=== PATIENT | male | born 1935 | race Caucasian/White ===

== ENCOUNTER → 2016-11-21 | Outpatient (CLI) | payer MEDICARE, OTHER ==
--- NOTE | 2016-11-21 13:23 | NM ---
EXAMINATION TYPE: NM bone 3 phase DATE OF EXAM: 11/21/2016 1:14 PM COMPARISON: plain film 07 November 2016 HISTORY: Pain right knee Triple phase bone scintigraphy was performed following the injection of27.2 mCi Tc 99m MDP. Immediat e images and 5.5 hours post injection images acquired. FINDINGS: Increased radiopharmaceutical uptake noted on blood flow, blood pool and delayed imaging at the right knee. Photopenic areas are present within the knees due to prostheses. IMPRESSION: Findings suggest infection
== END | disposition home or self-care (01) ==
LOC: RADNMMAIN 07:07
PROVIDERS: ATTEND Orthopaedic Surgery
DX: S83.421D Sprain of lateral collateral ligament of right knee, subsequent encounter (principal); M12.261 Villonodular synovitis (pigmented), right knee; M25.561 Pain in right knee; E11.9 Type 2 diabetes mellitus without complications; Z09 Encounter for follow-up examination after completed treatment for conditions other than malignant neoplasm; Z96.651 Presence of right artificial knee joint
CPT/HCPCS: 78315; A9503

== ENCOUNTER 2016-11-26 15:13 | Inpatient (IN) | payer MEDICARE, OTHER ==
[2016-11-26] MEDS ORDERED: HYDROcodone/APAP 7.5-325MG 1 EACH TAB PO PRN (15:27)
[2016-11-26] MEDS ORDERED: HYDROmorphone 1 MG/ML 1 ML SYRINGE IVP PRN ×2 (15:27)
[2016-11-26 16:15] LABS: Basophils # (A) 0.1 k/uL (0-0.2); Basophils % (A) 1 %; CH 31.3; CHCM 31.8; Eosinophils # (A) 0.1 k/uL (0-0.7); Eosinophils % (A) 1 %; HCT 38.9 % (39.0-53.0); HDW 2.27; HGB 12.4 gm/dL (13.0-17.5); Luc # (Auto) 0.23; Luc % (Auto) 3; Lymphocytes # (A) 1.9 k/uL (1.0-4.8); Lymphocytes % (A) 21 %; MCH 31.6 pg (25.0-35.0); MCV 98.8 fL (80.0-100.0); Mean Platelet Volume 6.5; Monocytes # (A) 0.5 k/uL (0-1.0); Monocytes % (A) 6 %; Neutrophils # (A) 6.5 k/uL (1.3-7.7); Neutrophils % (A) 70 %; RBC 3.93 m/uL (4.30-5.90); RDW 12.1 % (11.5-15.5); WBC 9.2 k/uL (3.8-10.6); WBC (Perox) 8.51
[2016-11-26] MEDS ORDERED: SODIUM CHLORIDE 0.9% 1,000 ML IV SCH (16:15)
[2016-11-26 16:22] LABS: INR 1.1 (<1.1); Partial Thromboplastin Time 26.8 sec (22.0-30.0); Prothrombin Time 10.8 sec (9.0-12.0)
[2016-11-26 16:38] LABS: ALT 24 U/L (21-72); AST 16 U/L (17-59); Alkaline Phosphatase 67 U/L (38-126); Anion Gap 15 mmol/L; Blood Urea Nitrogen 29 mg/dL (9-20); Calcium 9.4 mg/dL (8.4-10.2); Carbon Dioxide 23 mmol/L (22-30); Chloride 95 mmol/L (98-107); Glucose 183 mg/dL (74-99); Non-African American GFR(MDRD) 53 (>60 ml/min/1.73 sqM); Potassium 4.6 mmol/L (3.5-5.1); Sodium 133 mmol/L (137-145); Total Bilirubin 0.5 mg/dL (0.2-1.3); Total Protein 6.7 g/dL (6.3-8.2)
[2016-11-26] MEDS: ceFAZolin 2 GM in SODIUM CHLORIDE 0.9% 100 ML IVPB SCH (16:58)
[2016-11-26] MEDS: HYDROcodone/APAP 7.5-325MG 1 EACH TAB PO PRN (17:00)
[2016-11-26 17:13] LABS: C Reactive Protein 133.3 mg/L (<10.0)
[2016-11-26] MEDS ORDERED: LORATADINE 10 MG TAB PO PRN (17:29)
[2016-11-26 17:44] LABS: Glucose,Whole Blood 178 mg/dL (75-99)
[2016-11-26] MEDS ORDERED: HYDROCHLOROTHIAZIDE 25 MG TAB PO SCH (17:45)
[2016-11-26 20:55] LABS: Glucose,Whole Blood 252 mg/dL (75-99)
[2016-11-26] MEDS ORDERED: NON-FORMULARY DRUG (Omega-3 Fatty Acids/Fish Oil [Fish Oil 1,000 Mg Softgel] 1 CAP) PO SCH (21:00)
[2016-11-26] MEDS: TAMSULOSIN 0.4 MG CAP.ER.24H PO SCH (21:09)
[2016-11-26] MEDS: glipiZIDE 10 MG TAB PO SCH (21:09)
[2016-11-26] MEDS: metFORMIN 500 MG TAB PO SCH (21:10)
[2016-11-26] MEDS: ATORVASTATIN 20 MG TAB PO SCH (21:10)
[2016-11-26] MEDS: INSULIN LISPRO (humaLOG) 300 UNIT/3 ML VIAL SQ SCH (21:10)
[2016-11-26] MEDS: INSULIN GLARGINE 100 UNIT/ML 10 ML VIAL SQ SCH (21:10)
[2016-11-26 22:38] LABS: Hemoglobin A1C 10.7 % (4.2-6.1)
[2016-11-27] MEDS: ceFAZolin 2 GM in SODIUM CHLORIDE 0.9% 100 ML IVPB SCH ×3 (00:03→17:48)
[2016-11-27] MEDS: HYDROcodone/APAP 7.5-325MG 1 EACH TAB PO PRN ×3 (00:03→21:06)
[2016-11-27 06:31] LABS: Appearance,Urine Clear (Clear); Bilirubin,Urine Negative (Negative); Glucose,Urine (UA) Negative (Negative); Ketones,Urine Trace (Negative); Leukocyte Esterase,Urine Negative (Negative); Mucus,Urine Rare /hpf; Nitrite,Urine Negative (Negative); Particle Count 1433; Protein,Urine Negative (Negative); RBC,Urine 10 /hpf (0-5); Specific Gravity,Urine 1.021 (1.001-1.035); Squamous Epithelial Cell,Urine 1 /hpf (0-4); UA Billing (MACRO vs. MICRO) MICRO; Urobilinogen,Urine <2.0 mg/dL (<2.0); WBC,Urine 2 /hpf (0-5)
[2016-11-27 07:48] LABS: Glucose,Whole Blood 100 mg/dL (75-99)
[2016-11-27] MEDS: INSULIN LISPRO (humaLOG) 300 UNIT/3 ML VIAL SQ SCH ×4 (08:09→21:05)
[2016-11-27] MEDS: glipiZIDE 10 MG TAB PO SCH ×2 (08:09→21:06)
[2016-11-27] MEDS: LISINOPRIL 2.5 MG TAB PO SCH (08:10)
[2016-11-27] MEDS: TAMSULOSIN 0.4 MG CAP.ER.24H PO SCH ×2 (08:10→21:05)
[2016-11-27] MEDS: metFORMIN 500 MG TAB PO SCH ×2 (08:11→21:06)
--- NOTE | 2016-11-27 08:56 | P.HPOR ---
History of Present Illness H&P Date: 11/27/16 Chief Complaint: Right infected TKA The patient is a pleasant 81-year-old male who is known patient of Dr. Contreras. The patient presented our office for right knee pain at the end of October. 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 Both surgeries were completed by Dr. Marie. The patient states that he has had ongoing pain in the right knee since surgery. He underwent a cortisone injection by Dr. Contreras at the end of October which was not helpful for his pain. A few weeks later he presented back to the office unable to bear weight on the right leg. A aspiration of the knee was completed on 2016 that revealed turbid fluid and a bone scan was ordered. Bone scan revealed infection to the right knee. Cultures of the knee aspirate have been negative at this time. The patient states that he has had fever and chills for the last few weeks. The patient was admitted directly from our office yesterday for hardware removal and antibiotic spacer placement to the right knee this afternoon. Infectious disease consult has been requested. Today, the patient states that his knee is still warm and painful. He denies fever and chills today. Review of Systems Constitutional: Reports as per HPI Cardiovascular: Denies chest pain, Denies shortness of breath Respiratory: Denies cough Gastrointestinal: Denies abdominal pain, Denies nausea, Denies vomiting Musculoskeletal: right: knee pain, knee stiffness, knee swelling Past Medical History Past Medical History: Diabetes Mellitus, GERD/Reflux, Hyperlipidemia, Hypertension, Osteoarthritis (OA), Prostate Disorder, Sleep Apnea/CPAP/BIPAP Additional Past Medical History / Comment(s): diverticulosis, hemmorhoids, constopation, varicose veins, ulcers History of Any Multi-Drug Resistant Organisms: None Reported Additional Past Surgical History / Comment(s): rt knee arthroscopy, tressa total knee repalcments, egd/colonoscopy, tressa cataracts-lens implants, rt ing hernia, umb hernia,ventral hernia, exp lap -repair of perforated ulcer Past Anesthesia/Blood Transfusion Reactions: No Reported Reaction Past Psychological History: Depression Additional Psychological History / Comment(s): pt lives with his of 63 years( rikki)and 1 son in a 2 story home. they stay on first level. they have 4 porch steps. 2 house cats. medical equipment -cpap, 4 wheeled walker. no out side services. Smoking Status: Never smoker Past Alcohol Use History: Rare Past Drug Use History: None Reported - Past Family History Mother Family Medical History: Diabetes Mellitus Additional Family Medical History / Comment(s): cardiac problems Father Family Medical History: Coronary Artery Disease (CAD) Additional Family Medical History / Comment(s): pacemaker implanted at age 93 Brother(s) History Unknown: Yes Additional Family Medical History / Comment(s): Patient was 1 brother that at age 77 with history of Alzheimer's disease and Parkinson's. Sister(s) Additional Family Medical History / Comment(s): Patient had 5 sisters. One sister from breast cancer. Second sister from an unknown cancer. Other 3 sisters are alive and doing well. Son(s) Additional Family Medical History / Comment(s): Patient has 2 sons and 5 daughters. One daughter from breast cancer at age 27. Other children have no major medical problems. Medications and Allergies Home Medications Medication Instructions Recorded Confirmed Type Acetaminophen-Codeine 300-30mg 1 tab PO Q4H PRN 11/26/16 11/26/16 History [Tylenol #3] Aspirin 325 mg PO DAILY 11/26/16 11/26/16 History HYDROcodone/APAP 7.5-325MG [[place] 1 tab PO Q6HR PRN 11/26/16 11/26/16 History 7.5-325] Hydrochlorothiazide [Hydrodiuril] 25 mg PO BID 11/26/16 11/26/16 History Insulin Glargine,Hum.rec.anlog 25 unit SQ 11/26/16 11/26/16 History [Basaglar Kwikpen U-100] Lisinopril [Zestril] 2.5 mg PO DAILY 11/26/16 11/26/16 History Loratadine [Claritin] 10 mg PO DAILY PRN 11/26/16 11/26/16 History [place]-3 Fatty Acids/Fish Oil [Fish 1 cap PO BID 11/26/16 11/26/16 History Oil 1,000 mg Softgel] Simvastatin [Zocor] 40 mg PO HS 11/26/16 11/26/16 History Tamsulosin [Flomax] 0.4 mg PO BID 11/26/16 11/26/16 History glyBURIDE/METFORMIN HCL 2 tab PO BID 11/26/16 11/26/16 History [Glucovance 5-500 mg Tablet] Allergies Allergy/AdvReac Type Severity Reaction Status Date / Time No Known Allergies Allergy Unverified 11/26/16 16:03 Physical Examination The patient is in no acute distress. He is alert and oriented 3. Exam of the right knee reveals moderate effusion. Patellar pain. Mild warmth. No gross instability. Range of motion of the right knee reveals full extension and flexion to 110. Lateral joint line pain is present. Negative Gissel's. Full and painless right hip motion. Calf is supple and nontender. Circulatory and neurovascular status is intact. Results - Labs Labs: Abnormal Lab Results - Last 24 Hours (Table) 11/26/16 11/26/16 11/26/16 Range/Units 15:50 15:59 17:39 RBC 3.93 L (4.30-5.90) m/uL Hgb 12.4 L (13.0-17.5) gm/dL Hct 38.9 L (39.0-53.0) % ESR (0-15) mm/hr Sodium 133 L (137-145) mmol/L Chloride 95 L (98-107) mmol/L BUN 29 H (9-20) mg/dL Creatinine 1.30 H (0.66-1.25) mg/dL Glucose 183 H (74-99) mg/dL POC Glucose (mg/dL) 178 H (75-99) mg/dL Hemoglobin A1c (4.2-6.1) % AST 16 L (17-59) U/L C-Reactive Protein 133.3 H (<10.0) mg/L Albumin 3.4 L (3.5-5.0) g/dL Urine Ketones (Negative) Urine Blood (Negative) Urine RBC (0-5) /hpf Urine Mucus (None) /hpf 11/26/16 11/26/16 11/26/16 Range/Units 18:46 18:46 20:54 RBC (4.30-5.90) m/uL Hgb (13.0-17.5) gm/dL Hct (39.0-53.0) % ESR 106 H (0-15) mm/hr Sodium (137-145) mmol/L Chloride (98-107) mmol/L BUN (9-20) mg/dL Creatinine (0.66-1.25) mg/dL Glucose (74-99) mg/dL POC Glucose (mg/dL) 252 H (75-99) mg/dL Hemoglobin A1c 10.7 H (4.2-6.1) % AST (17-59) U/L C-Reactive Protein (<10.0) mg/L Albumin (3.5-5.0) g/dL Urine Ketones (Negative) Urine Blood (Negative) Urine RBC (0-5) /hpf Urine Mucus (None) /hpf 11/27/16 11/27/16 Range/Units 06:13 07:35 RBC (4.30-5.90) m/uL Hgb (13.0-17.5) gm/dL Hct (39.0-53.0) % ESR (0-15) mm/hr Sodium (137-145) mmol/L Chloride (98-107) mmol/L BUN (9-20) mg/dL Creatinine (0.66-1.25) mg/dL Glucose (74-99) mg/dL POC Glucose (mg/dL) 100 H (75-99) mg/dL Hemoglobin A1c (4.2-6.1) % AST (17-59) U/L C-Reactive Protein (<10.0) mg/L Albumin (3.5-5.0) g/dL Urine Ketones Trace H (Negative) Urine Blood Trace H (Negative) Urine RBC 10 H (0-5) /hpf Urine Mucus Rare H (None) /hpf H & H 11/26/16 Range/Units 15:59 Hgb 12.4 L (13.0-17.5) gm/dL Hct 38.9 L (39.0-53.0) % Coagulation 11/26/16 Range/Units 15:50 INR 1.1 (<1.1) Result Diagrams: 11/27/16 08:24 11/27/16 08:24 Assessment and Plan (1) Status post right knee replacement Status: Acute (2) Infection of prosthetic right knee joint Status: Acute Plan: The clinical and diagnostic findings were discussed with the patient and the patient's . The patient will undergo a removal of hardware with spacer placement the right knee today by Dr. Contreras. Patient will continue to be nothing by mouth. We would appreciate antibiotics recommendations from infectious disease. The patient may require PICC line placement and IV outpatient antibiotic therapy. We will continue to follow patient closely and make further recommendations as needed.
--- NOTE | 2016-11-27 09:09 | P.CONS ---
History of Present Illness - Reason for Consult Consult date: 11/27/16 Infected right total knee arthroplasty - History of Present Illness This is an 81-year-old male. He has a significant history of a right total knee arthroplasty done in 2008 followed by a left done in 2009. Regarding his right knee, patient states it is always been painful and he's had decreased range of motion and requires continued use of walker. He states it is never been right from the beginning. He states he has been feeling warm his has applied ice packs to his knee which has helped. He apparently has had fever and chills at home. He has been following with orthopedics and underwent an aspiration done on November 19 that showed normal skin renetta. Fluid was cloudy, RBCs 800, nucleated cells 35,200, Chiara nuclear WBCs 99, mononuclear 1. No crystals were seen. He underwent a bone scan on November 21 that showed infection in the right knee. Patient is now admitted to the surgical unit and planned for removal of right knee hardware and antibiotic spacer placement today. Since arrival, patient has been afebrile, white count is 9.2. BUN 29 creatinine 1.3. Urinalysis was clear with nitrate and leukoesterase negative. CRP was 133. Albumin 3.4. Patient does state that he has had decreased oral intake as he is trying to lose weight over the past 3 weeks. He noted that his blood sugar last week was in the 300s and normally runs 150. Hemoglobin A1c is 10.7. He has significant pain to the right knee with decreased range of motion. Review of Systems All systems: negative Constitutional: Reports chills, Reports fatigue, Reports fever Eyes: denies blurred vision, denies pain Ears, nose, mouth and throat: Denies headache, Denies sore throat Cardiovascular: Denies chest pain, Denies shortness of breath Respiratory: Denies cough Gastrointestinal: Denies abdominal pain, Denies diarrhea, Denies nausea, Denies vomiting Genitourinary: Denies dysuria, Denies urinary frequency Musculoskeletal: Denies myalgias Musculoskeletal: right: knee pain, knee stiffness, knee swelling Integumentary: Denies pruritus, Denies rash Neurological: Denies numbness, Denies weakness Psychiatric: Denies anxiety, Denies depression Endocrine: Denies fatigue, Denies weight change Past Medical History Past Medical History: Diabetes Mellitus, GERD/Reflux, Hyperlipidemia, Hypertension, Osteoarthritis (OA), Prostate Disorder, Sleep Apnea/CPAP/BIPAP Additional Past Medical History / Comment(s): diverticulosis, hemmorhoids, constopation, varicose veins, ulcers History of Any Multi-Drug Resistant Organisms: None Reported Additional Past Surgical History / Comment(s): rt knee arthroscopy, tressa total knee replacments, egd/colonoscopy, tressa cataracts-lens implants, rt ing hernia, umb hernia,ventral hernia, exp lap -repair of perforated ulcer Past Anesthesia/Blood Transfusion Reactions: No Reported Reaction Past Psychological History: Depression Additional Psychological History / Comment(s): pt lives with his of 63 years( rikki)and 1 son in a 2 story home. they stay on first level. they have 4 porch steps. 2 house cats. medical equipment -cpap, 4 wheeled walker. no out side services. Smoking Status: Never smoker Past Alcohol Use History: Rare Additional Past Alcohol Use History / Comment(s): Patient is a lifelong nonsmoker. He denies any medical marijuana, marijuana, street drug or alcohol use. He worked in the past [employer] and at [employer]. He served in the [employer] starting during the [employer] but was stationed in the [place]. There is one cat in the home. Past Drug Use History: None Reported - Past Family History Mother Family Medical History: Diabetes Mellitus Additional Family Medical History / Comment(s): Mother at age 83 from complications from diabetes. Father Family Medical History: Coronary Artery Disease (CAD) Additional Family Medical History / Comment(s): Father at age 93 and only history was pacemaker implantation at age 93. Brother(s) History Unknown: Yes Additional Family Medical History / Comment(s): Patient was 1 brother that at age 77 with history of Alzheimer's disease and Parkinson's. Sister(s) Additional Family Medical History / Comment(s): Patient had 5 sisters. One sister from breast cancer. Second sister from an unknown cancer. Other 3 sisters are alive and doing well. Son(s) Additional Family Medical History / Comment(s): Patient has 2 sons and 5 daughters. One daughter from breast cancer at age 27. Other children have no major medical problems. Medications and Allergies Home Medications Medication Instructions Recorded Confirmed Type Acetaminophen-Codeine 300-30mg 1 tab PO Q4H PRN 11/26/16 11/26/16 History [Tylenol #3] Aspirin 325 mg PO DAILY 11/26/16 11/26/16 History HYDROcodone/APAP 7.5-325MG [[place] 1 tab PO Q6HR PRN 11/26/16 11/26/16 History 7.5-325] Hydrochlorothiazide [Hydrodiuril] 25 mg PO BID 11/26/16 11/26/16 History Insulin Glargine,Hum.rec.anlog 25 unit SQ HS 11/26/16 11/26/16 History [Basaglar Kwikpen U-100] Lisinopril [Zestril] 2.5 mg PO DAILY 11/26/16 11/26/16 History Loratadine [Claritin] 10 mg PO DAILY PRN 11/26/16 11/26/16 History [place]-3 Fatty Acids/Fish Oil [Fish 1 cap PO BID 11/26/16 11/26/16 History Oil 1,000 mg Softgel] Simvastatin [Zocor] 40 mg PO HS 11/26/16 11/26/16 History Tamsulosin [Flomax] 0.4 mg PO BID 11/26/16 11/26/16 History glyBURIDE/METFORMIN HCL 2 tab PO BID 11/26/16 11/26/16 History [Glucovance 5-500 mg Tablet] Allergies Allergy/AdvReac Type Severity Reaction Status Date / Time No Known Allergies Allergy Unverified 11/27/16 13:25 Physical Exam Vitals: Vital Signs Temp Pulse Resp BP Pulse Ox 11/27/16 07:00 97.4 F L 83 16 101/59 93 L 11/26/16 23:00 98.1 F 62 18 108/59 94 L 11/26/16 16:28 97.7 F 91 18 125/61 96 Intake and Output 11/26/16 11/27/16 11/27/16 22:59 06:59 14:59 Intake Total 240 Output Total 100 Balance 140 Intake: Oral 240 Output: Urine 100 Other: Voiding Method Urinal Urinal # Voids 3 1 Weight 123 kg Gen: This is an 81-year-old male. He is sitting up in a chair at the bedside and appears to be in no acute distress. HEENT: Head is atraumatic, normocephalic. Pupils equal, round. Sclerae is anicteric. NECK: Supple. No JVD. No lymphadenopathy. No thyromegaly. LUNGS: Diminished bilaterally. Clear to auscultation. No wheezes or rhonchi. No intercostal retractions. HEART: Regular rate and rhythm. Systolic murmur. ABDOMEN: Soft. Bowel sounds are present. No masses. No tenderness. EXTREMITIES: Trace pedal edema on the right. No calf tenderness. Significant tenderness to the right knee, decreased range of motion. Dorsalis pedis +2 bilaterally NEUROLOGICAL: Patient is awake, alert and oriented x3. Cranial nerves 2 through 12 are grossly intact. Results Results: Laboratory Results WBC 9.2 k/uL (3.8-10.6) 11/26/16 15:59 RBC 3.93 m/uL (4.30-5.90) L 11/26/16 15:59 Hgb 12.4 gm/dL (13.0-17.5) L 11/26/16 15:59 Hct 38.9 % (39.0-53.0) L 11/26/16 15:59 MCV 98.8 fL (80.0-100.0) 11/26/16 15:59 MCH 31.6 pg (25.0-35.0) 11/26/16 15:59 MCHC 32.0 g/dL (31.0-37.0) 11/26/16 15:59 RDW 12.1 % (11.5-15.5) 11/26/16 15:59 Plt Count 367 k/uL (150-450) 11/26/16 15:59 Neutrophils % 70 % 11/26/16 15:59 Lymphocytes % 21 % 11/26/16 15:59 Monocytes % 6 % 11/26/16 15:59 Eosinophils % 1 % 11/26/16 15:59 Basophils % 1 % 11/26/16 15:59 Neutrophils # 6.5 k/uL (1.3-7.7) 11/26/16 15:59 Lymphocytes # 1.9 k/uL (1.0-4.8) 11/26/16 15:59 Monocytes # 0.5 k/uL (0-1.0) 11/26/16 15:59 Eosinophils # 0.1 k/uL (0-0.7) 11/26/16 15:59 Basophils # 0.1 k/uL (0-0.2) 11/26/16 15:59 ESR 106 mm/hr (0-15) H 11/26/16 18:46 PT 10.8 sec (9.0-12.0) 11/26/16 15:50 INR 1.1 (<1.1) 11/26/16 15:50 APTT 26.8 sec (22.0-30.0) 11/26/16 15:50 Sodium 133 mmol/L (137-145) L 11/26/16 15:50 Potassium 4.6 mmol/L (3.5-5.1) 11/26/16 15:50 Chloride 95 mmol/L (98-107) L 11/26/16 15:50 Carbon Dioxide 23 mmol/L (22-30) 11/26/16 15:50 Anion Gap 15 mmol/L 11/26/16 15:50 BUN 29 mg/dL (9-20) H 11/26/16 15:50 Creatinine 1.30 mg/dL (0.66-1.25) H 11/26/16 15:50 Est GFR (MDRD) Af Amer >60 (>60 ml/min/1.73 sqM) 11/26/16 15:50 Est GFR (MDRD) Non-Af 53 (>60 ml/min/1.73 sqM) 11/26/16 15:50 Glucose 183 mg/dL (74-99) H 11/26/16 15:50 POC Glucose (mg/dL) 100 mg/dL (75-99) H 11/27/16 07:35 POC Glu [employer] Tender ID Rachel Flores 11/27/16 07:[address] Glu mg/dL 260 mg/dL 11/26/16 18:46 Hemoglobin A1c 10.7 % (4.2-6.1) H 11/26/16 18:46 Calcium 9.4 mg/dL (8.4-10.2) 11/26/16 15:50 Total Bilirubin 0.5 mg/dL (0.2-1.3) 11/26/16 15:50 AST 16 U/L (17-59) L 11/26/16 15:50 ALT 24 U/L (21-72) 11/26/16 15:50 Alkaline Phosphatase 67 U/L (38-126) 11/26/16 15:50 C-Reactive Protein 133.3 mg/L (<10.0) H 11/26/16 15:50 Total Protein 6.7 g/dL (6.3-8.2) 11/26/16 15:50 Albumin 3.4 g/dL (3.5-5.0) L 11/26/16 15:50 Urine Color Yellow 11/27/16 06:13 Urine Appearance Clear (Clear) 11/27/16 06:13 Urine pH 5.0 (5.0-8.0) 11/27/16 06:13 Ur Specific [place] 1.021 (1.001-1.035) 11/27/16 06:13 Urine Protein Negative (Negative) 11/27/16 06:13 Urine Glucose (UA) Negative (Negative) 11/27/16 06:13 Urine Ketones Trace (Negative) H 11/27/16 06:13 Urine Blood Trace (Negative) H 11/27/16 06:13 Urine Nitrite Negative (Negative) 11/27/16 06:13 Urine Bilirubin Negative (Negative) 11/27/16 06:13 Urine Urobilinogen <2.0 mg/dL (<2.0) 11/27/16 06:13 Ur Leukocyte Esterase Negative (Negative) 11/27/16 06:13 Urine RBC 10 /hpf (0-5) H 11/27/16 06:13 Urine WBC 2 /hpf (0-5) 11/27/16 06:13 Ur Squamous Epith Cells 1 /hpf (0-4) 11/27/16 06:13 Hyaline Casts 1 /lpf (0-2) 11/27/16 06:13 Urine Mucus Rare /hpf (None) H 11/27/16 06:13 Blood Type A Positive 11/26/16 15:59 Blood Type Recheck A Pos 11/26/16 15:59 Antibody Screen NEGATIVE 11/26/16 15:59 Spec Expiration Date 11/29/2016 - 11911/26/16 15:59 CBC & Chem 7: 11/29/16 08:19 11/29/16 08:19 Labs: Abnormal Lab Results - Last 24 Hours (Table) 11/26/16 11/26/16 11/26/16 Range/Units 15:50 15:59 17:39 RBC 3.93 L (4.30-5.90) m/uL Hgb 12.4 L (13.0-17.5) gm/dL Hct 38.9 L (39.0-53.0) % ESR (0-15) mm/hr Sodium 133 L (137-145) mmol/L Chloride 95 L (98-107) mmol/L BUN 29 H (9-20) mg/dL Creatinine 1.30 H (0.66-1.25) mg/dL Glucose 183 H (74-99) mg/dL POC Glucose (mg/dL) 178 H (75-99) mg/dL Hemoglobin A1c (4.2-6.1) % AST 16 L (17-59) U/L C-Reactive Protein 133.3 H (<10.0) mg/L Albumin 3.4 L (3.5-5.0) g/dL Urine Ketones (Negative) Urine Blood (Negative) Urine RBC (0-5) /hpf Urine Mucus (None) /hpf 11/26/16 11/26/16 11/26/16 Range/Units 18:46 18:46 20:54 RBC (4.30-5.90) m/uL Hgb (13.0-17.5) gm/dL Hct (39.0-53.0) % ESR 106 H (0-15) mm/hr Sodium (137-145) mmol/L Chloride (98-107) mmol/L BUN (9-20) mg/dL Creatinine (0.66-1.25) mg/dL Glucose (74-99) mg/dL POC Glucose (mg/dL) 252 H (75-99) mg/dL Hemoglobin A1c 10.7 H (4.2-6.1) % AST (17-59) U/L C-Reactive Protein (<10.0) mg/L Albumin (3.5-5.0) g/dL Urine Ketones (Negative) Urine Blood (Negative) Urine RBC (0-5) /hpf Urine Mucus (None) /hpf 11/27/16 11/27/16 Range/Units 06:13 07:35 RBC (4.30-5.90) m/uL Hgb (13.0-17.5) gm/dL Hct (39.0-53.0) % ESR (0-15) mm/hr Sodium (137-145) mmol/L Chloride (98-107) mmol/L BUN (9-20) mg/dL Creatinine (0.66-1.25) mg/dL Glucose (74-99) mg/dL POC Glucose (mg/dL) 100 H (75-99) mg/dL Hemoglobin A1c (4.2-6.1) % AST (17-59) U/L C-Reactive Protein (<10.0) mg/L Albumin (3.5-5.0) g/dL Urine Ketones Trace H (Negative) Urine Blood Trace H (Negative) Urine RBC 10 H (0-5) /hpf Urine Mucus Rare H (None) /hpf Assessment and Plan Plan: This is an 81-year-old male who has been brought into the hospital for infected right total knee arthroplasty with scheduled removal of right knee hardware and placement of antibiotic spacer today. He is currently on. No cultures are currently available. Patient will require close blood sugar control. Continue supportive care. Further recommendations as patient progresses. The above dictated assessment and findings were discussed with Dr. Hernandez. The impression and plan of care have been directed as dictated. Augustina Washington nurse practitioner acting as scribe for Dr. Hernandez.
[2016-11-27 10:04] LABS: Basophils # (A) 0.1 k/uL (0-0.2); Basophils % (A) 1 %; CH 31.5; CHCM 32.2; Eosinophils # (A) 0.1 k/uL (0-0.7); Eosinophils % (A) 1 %; HCT 38.5 % (39.0-53.0); HDW 2.23; HGB 12.2 gm/dL (13.0-17.5); Luc # (Auto) 0.18; Luc % (Auto) 2; Lymphocytes % (A) 22 %; MCHC 31.7 g/dL (31.0-37.0); Mean Platelet Volume 7.1; Monocytes # (A) 0.6 k/uL (0-1.0); Monocytes % (A) 7 %; Neutrophils % (A) 68 %; RBC 3.93 m/uL (4.30-5.90); WBC 8.8 k/uL (3.8-10.6); WBC (Perox) 8.69
[2016-11-27 10:19] LABS: Calcium 9.5 mg/dL (8.4-10.2); Magnesium 1.8 mg/dL (1.6-2.3); Potassium 5.6 mmol/L (3.5-5.1); Total Bilirubin 0.8 mg/dL (0.2-1.3); Total Protein 7.2 g/dL (6.3-8.2)
[2016-11-27 11:13] VITALS: BMI 36.2
[2016-11-27 11:37] LABS: Glucose,Whole Blood 92 mg/dL (75-99)
[2016-11-27] MEDS: SODIUM CHLORIDE 0.9% 1,000 ML IV SCH (12:55)
[2016-11-27] MEDS ORDERED: LACTATED RINGERS 1,000 ML IV ONE (13:24)
[2016-11-27 13:53] LABS: Glucose,Whole Blood 60 mg/dL (75-99)
[2016-11-27 13:53] LABS: Glucose,Whole Blood 102 mg/dL (75-99)
[2016-11-27] MEDS ORDERED: MIDAZOLAM 2 MG/2 ML VIAL ONE (14:05)
[2016-11-27] MEDS ORDERED: PROPOFOL 10 MG/ML 20 ML VIAL IV ONE (14:05)
--- NOTE | 2016-11-27 14:29 | P.CONS ---
History of Present Illness - Reason for Consult Consult date: 11/26/16 Medical management Requesting physician: Otilio Contreras - Chief Complaint Infected Right Total Knee Arthroplasty - History of Present Illness This is an 81-year-old male one of Dr. Larkin with a previous medical history significant for hypertension and hypertensive cardio vascular disease, hyperlipidemia, GERD, diabetes mellitus type 2, obesity with obstructive sleep apnea and obesity hypoventilation syndrome, history of osteoarthritis status post right total knee arthroplasty back in 2008 and left total knee of breast back in 2009, patient stated that he has been having issues with his right knee on and off with increased warmth and pain along with swelling, and he has been following up with orthopedic surgery for evaluation. He apparently underwent an aspiration done on November 19 that showed normal skin renetta. Fluid was cloudy, RBCs 800, nucleated cells 35,200, Chiara nuclear WBCs 99, mononuclear 1. No crystals were seen. He underwent a bone scan on November 21 that showed infection in the right knee. Patient is now admitted to the surgical unit and planned for removal of right knee hardware and antibiotic spacer placement that would be scheduled for tomorrow morning. Patient is sitting up in bed in no apparent distress he denies any chest pain, shortness breath, he has no abdominal pain, nausea, vomiting, he does complain of increased pain and swelling of the right knee and not able to ambulate. Review of Systems Constitutional: Reports chronic pain, Reports fever, Reports malaise, Reports weakness, Reports weight gain, Denies anorexia, Denies chronic headaches Eyes: denies blurred vision, denies bulging eye, denies decreased vision Ears: bilateral: decreased hearing Ears, nose, mouth and throat: Denies dysphagia, Denies neck lump, Denies sore throat Cardiovascular: Reports decreased exercise tolerance, Reports dyspnea on exertion, Reports high blood pressure, Denies chest pain, Denies rapid heart beat, Denies shortness of breath, Denies syncope Respiratory: Reports dyspnea, Reports sleep apnea, Reports snoring, Denies congestion, Denies cough, Denies cough with sputum, Denies wheezing Gastrointestinal: Denies abdominal pain, Denies bloating, Denies BRBPR, Denies change in bowel habits, Denies heartburn, Denies hematemesis, Denies hematochezia, Denies indigestion, Denies melena, Denies nausea, Denies vomiting Genitourinary: Reports nocturia, Denies dysuria Musculoskeletal: Reports gait dysfunction, Reports hot joints Musculoskeletal: right: knee pain, knee stiffness, knee swelling, absent: ankle pain, ankle stiffness, ankle swelling, elbow pain, elbow stiffness, elbow swelling, foot pain, foot stiffness, foot swelling, hand pain, hand stiffness, hand swelling, hip pain, hip stiffness, hip swelling, shoulder pain, shoulder stiffness, shoulder swelling, wrist pain, wrist stiffness, wrist swelling Integumentary: Reports rash (Seborrheic dermatitis on his face.) Neurological: Reports balance difficulties, Reports gait dysfunction, Reports weakness Psychiatric: Denies anxiety, Denies depression Endocrine: Denies fatigue, Denies weight change Past Medical History Past Medical History: Diabetes Mellitus, GERD/Reflux, Hyperlipidemia, Hypertension, Osteoarthritis (OA), Prostate Disorder, Sleep Apnea/CPAP/BIPAP Additional Past Medical History / Comment(s): diverticulosis, hemmorhoids, constopation, varicose veins, ulcers History of Any Multi-Drug Resistant Organisms: None Reported Additional Past Surgical History / Comment(s): rt knee arthroscopy, tressa total knee repalcments, egd/colonoscopy, tressa cataracts-lens implants, rt ing hernia, umb hernia,ventral hernia, exp lap -repair of perforated ulcer Past Anesthesia/Blood Transfusion Reactions: No Reported Reaction Past Psychological History: Depression Additional Psychological History / Comment(s): pt lives with his of 63 years( rikki)and 1 son in a 2 story home. they stay on first level. they have 4 porch steps. 2 house cats. medical equipment -cpap, 4 wheeled walker. no out side services. Smoking Status: Never smoker Past Alcohol Use History: Rare Past Drug Use History: None Reported - Past Family History Mother Family Medical History: Diabetes Mellitus Additional Family Medical History / Comment(s): cardiac problems Father Family Medical History: Coronary Artery Disease (CAD) Additional Family Medical History / Comment(s): pacemaker implanted at age 93 Brother(s) History Unknown: Yes Additional Family Medical History / Comment(s): Patient was 1 brother that at age 77 with history of Alzheimer's disease and Parkinson's. Sister(s) Additional Family Medical History / Comment(s): Patient had 5 sisters. One sister from breast cancer. Second sister from an unknown cancer. Other 3 sisters are alive and doing well. Son(s) Additional Family Medical History / Comment(s): Patient has 2 sons and 5 daughters. One daughter from breast cancer at age 27. Other children have no major medical problems. Medications and Allergies Home Medications Medication Instructions Recorded Confirmed Type Acetaminophen-Codeine 300-30mg 1 tab PO Q4H PRN 11/26/16 11/26/16 History [Tylenol #3] Aspirin 325 mg PO DAILY 11/26/16 11/26/16 History HYDROcodone/APAP 7.5-325MG [[place] 1 tab PO Q6HR PRN 11/26/16 11/26/16 History 7.5-325] Hydrochlorothiazide [Hydrodiuril] 25 mg PO BID 11/26/16 11/26/16 History Insulin Glargine,Hum.rec.anlog 25 unit SQ HS 11/26/16 11/26/16 History [Basaglar Kwikpen U-100] Lisinopril [Zestril] 2.5 mg PO DAILY 11/26/16 11/26/16 History Loratadine [Claritin] 10 mg PO DAILY PRN 11/26/16 11/26/16 History Hudgins-3 Fatty Acids/Fish Oil [Fish 1 cap PO BID 11/26/16 11/26/16 History Oil 1,000 mg Softgel] Simvastatin [Zocor] 40 mg PO HS 11/26/16 11/26/16 History Tamsulosin [Flomax] 0.4 mg PO BID 11/26/16 11/26/16 History glyBURIDE/METFORMIN HCL 2 tab PO BID 11/26/16 11/26/16 History [Glucovance 5-500 mg Tablet] Allergies Allergy/AdvReac Type Severity Reaction Status Date / Time No Known Allergies Allergy Unverified 11/27/16 13:25 Physical Exam Vitals: Vital Signs Temp Pulse Resp BP Pulse Ox 11/26/16 16:28 97.7 F 91 18 125/61 96 Intake and Output 11/26/16 11/26/16 11/26/16 06:59 14:59 22:59 Output Total 100 Balance -100 Output: Urine 100 Other: Voiding Method Urinal Weight 123 kg Patient Weight 11/27/16 06:59 Weight 123 kg - Constitutional General appearance: mild distress, morbidly obese - EENT Eyes: anicteric sclerae, EOMI, PERRLA, no ptosis, no scleral icterus, normal appearance ENT: hard of hearing, normal oropharynx, no thrush Ears: bilateral: normal - Neck Neck: no lymphadenopathy, normal ROM, no rigidity, no stridor, no thyromegaly Carotids: bilateral: upstroke normal Thyroid: bilateral: normal size - Respiratory Respiratory: bilateral: diminished, negative: dullness, rales, rhonchi, wheezing , prolonged expiration, prolonged inspiration - Cardiovascular Rhythm: regular Heart sounds: normal: S1, S2 Abnormal Heart Sounds: systolic murmur, no rub, no S3 Gallop, no S4 Gallop, no click - Gastrointestinal General gastrointestinal: normal bowel sounds, soft, no splenomegaly, no tenderness, no umbilical hernia, no ventral hernia - Integumentary Integumentary: normal, normal turgor - Neurologic Neurologic: CNII-XII intact - Musculoskeletal Musculoskeletal: generalized weakness, strength equal bilaterally - Psychiatric Psychiatric: A&O x's 3, appropriate affect, intact judgment & insight Results CBC & Chem 7: 11/27/16 08:24 11/27/16 08:24 Labs: Abnormal Lab Results - Last 24 Hours (Table) 11/26/16 11/26/16 11/26/16 Range/Units 15:50 15:59 17:39 RBC 3.93 L (4.30-5.90) m/uL Hgb 12.4 L (13.0-17.5) gm/dL Hct 38.9 L (39.0-53.0) % Sodium 133 L (137-145) mmol/L Chloride 95 L (98-107) mmol/L BUN 29 H (9-20) mg/dL Creatinine 1.30 H (0.66-1.25) mg/dL Glucose 183 H (74-99) mg/dL POC Glucose (mg/dL) 178 H (75-99) mg/dL AST 16 L (17-59) U/L C-Reactive Protein 133.3 H (<10.0) mg/L Albumin 3.4 L (3.5-5.0) g/dL Assessment and Plan Plan: Assessment and plan: 1. Infected right knee prosthesis . Patient is scheduled to go for removal of the hardware and antibiotic spacer, patient will be started on IV antibiotic, after obtaining the result of the culture, patient is going to moderate risk surgery, there is no Indication for the post surgical intervention at this time , patient will be followed by or service after surgery. Infectious disease consultation appreciated. 2. Hypertension and hypertensive cardiovascular disease. We will continue patient on lisinopril 2.5 mg orally once every day, discontinue patient HCTZ. 3. Acute kidney injury with mild hyperkalemia. Continue IV fluid normal saline at 100 mL an hour. Recheck CMP magnesium tomorrow morning. 4. Hyperlipidemia. Continue Lipitor 20 mg orally once every day. 5. Diabetes mellitus type 2. Gave 80% of his Lantus dose which would be 20 units at bedtime along with a sliding scale insulin. IV fluids will be changed to D5 half-normal saline in the OR as to be switched back to saline at 75 mL an hour postoperatively. Hold off metformin and glyburide before surgery as to resume after surgery. 6. Enlarged prostate. Monitor for urinary retention, patient will need to have a Wheeler catheter in place, continue Flomax 0.4 g orally twice every day. 7. GERD. Continue Protonix 40 mg orally once every day. 8. Obesity with obstructive sleep apnea. Continue CPAP. 9. DVT prophylaxis. Patient will be started on Coumadin postoperatively. 10. Thank you Dr. Contreras for allowing me to participate in the care of your patient, we will follow the patient along with you.
--- NOTE | 2016-11-27 15:36 | P.PN ---
Subjective This is an 81-year-old male one of Dr. Larkin with a previous medical history significant for hypertension and hypertensive cardio vascular disease, hyperlipidemia, GERD, diabetes mellitus type 2, obesity with obstructive sleep apnea and obesity hypoventilation syndrome, history of osteoarthritis status post right total knee arthroplasty back in 2008 and left total knee of breast back in 2009, patient stated that he has been having issues with his right knee on and off with increased warmth and pain along with swelling, and he has been following up with orthopedic surgery for evaluation. He apparently underwent an aspiration done on November 19 that showed normal skin renetta. Fluid was cloudy, RBCs 800, nucleated cells 35,200, Chiara nuclear WBCs 99, mononuclear 1. No crystals were seen. He underwent a bone scan on November 21 that showed infection in the right knee. Patient is now admitted to the surgical unit and planned for removal of right knee hardware and antibiotic spacer placement that would be scheduled for tomorrow morning. Patient is sitting up in bed in no apparent distress he denies any chest pain, shortness breath, he has no abdominal pain, nausea, vomiting, he does complain of increased pain and swelling of the right knee and not able to ambulate. 11/27: Patient denies any new complaints. He continues to have right knee pain for which surgery is scheduled for 2:00 this afternoon. Sodium is 136, potassium 5.6, BUN 32 and creatinine 1.38. IV fluids increased to 100 mL per hour. Urinalysis was done with nitrate and leukoesterase negative. Objective - Vital Signs Vital signs: Vital Signs Temp 97.4 F L 11/27/16 07:00 Pulse 83 11/27/16 07:00 Resp 16 11/27/16 07:00 BP 101/59 11/27/16 07:00 Pulse Ox 93 L 11/27/16 07:00 Intake & Output 11/26/16 11/27/16 11/27/16 18:59 06:59 18:59 Intake Total 240 Output Total 100 Balance -100 240 Weight 123 kg 117.889 kg Intake: Oral 240 Output: Urine 100 Other: Voiding Method Urinal Urinal # Voids 1 - Exam General appearance: mild distress, morbidly obese - EENT Eyes: anicteric sclerae, EOMI, PERRLA, no ptosis, no scleral icterus, normal appearance ENT: hard of hearing, normal oropharynx, no thrush Ears: bilateral: normal - Neck Neck: no lymphadenopathy, normal ROM, no rigidity, no stridor, no thyromegaly Carotids: bilateral: upstroke normal Thyroid: bilateral: normal size - Respiratory Respiratory: bilateral: diminished, negative: dullness, rales, rhonchi, wheezing , prolonged expiration, prolonged inspiration - Cardiovascular Rhythm: regular Heart sounds: normal: S1, S2 Abnormal Heart Sounds: systolic murmur, no rub, no S3 Gallop, no S4 Gallop, no click - Gastrointestinal General gastrointestinal: normal bowel sounds, soft, no splenomegaly, no tenderness, no umbilical hernia, no ventral hernia - Integumentary Integumentary: normal, normal turgor - Neurologic Neurologic: CNII-XII intact - Musculoskeletal Musculoskeletal: generalized weakness, strength equal bilaterally - Psychiatric Psychiatric: A&O x's 3, appropriate affect, intact judgment & insight - Labs CBC & Chem 7: 11/27/16 08:24 11/27/16 08:24 Labs: Abnormal Lab Results - Last 24 Hours (Table) 11/26/16 11/26/16 11/26/16 Range/Units 15:50 15:59 17:39 RBC 3.93 L (4.30-5.90) m/uL Hgb 12.4 L (13.0-17.5) gm/dL Hct 38.9 L (39.0-53.0) % ESR (0-15) mm/hr Sodium 133 L (137-145) mmol/L Potassium (3.5-5.1) mmol/L Chloride 95 L (98-107) mmol/L BUN 29 H (9-20) mg/dL Creatinine 1.30 H (0.66-1.25) mg/dL Glucose 183 H (74-99) mg/dL POC Glucose (mg/dL) 178 H (75-99) mg/dL Hemoglobin A1c (4.2-6.1) % AST 16 L (17-59) U/L ALT (21-72) U/L C-Reactive Protein 133.3 H (<10.0) mg/L Albumin 3.4 L (3.5-5.0) g/dL Urine Ketones (Negative) Urine Blood (Negative) Urine RBC (0-5) /hpf Urine Mucus (None) /hpf 11/26/16 11/26/16 11/26/16 Range/Units 18:46 18:46 20:54 RBC (4.30-5.90) m/uL Hgb (13.0-17.5) gm/dL Hct (39.0-53.0) % ESR 106 H (0-15) mm/hr Sodium (137-145) mmol/L Potassium (3.5-5.1) mmol/L Chloride (98-107) mmol/L BUN (9-20) mg/dL Creatinine (0.66-1.25) mg/dL Glucose (74-99) mg/dL POC Glucose (mg/dL) 252 H (75-99) mg/dL Hemoglobin A1c 10.7 H (4.2-6.1) % AST (17-59) U/L ALT (21-72) U/L C-Reactive Protein (<10.0) mg/L Albumin (3.5-5.0) g/dL Urine Ketones (Negative) Urine Blood (Negative) Urine RBC (0-5) /hpf Urine Mucus (None) /hpf 11/27/16 11/27/16 11/27/16 Range/Units 06:13 07:35 08:24 RBC 3.93 L (4.30-5.90) m/uL Hgb 12.2 L (13.0-17.5) gm/dL Hct 38.5 L (39.0-53.0) % ESR (0-15) mm/hr Sodium (137-145) mmol/L Potassium (3.5-5.1) mmol/L Chloride (98-107) mmol/L BUN (9-20) mg/dL Creatinine (0.66-1.25) mg/dL Glucose (74-99) mg/dL POC Glucose (mg/dL) 100 H (75-99) mg/dL Hemoglobin A1c (4.2-6.1) % AST (17-59) U/L ALT (21-72) U/L C-Reactive Protein (<10.0) mg/L Albumin (3.5-5.0) g/dL Urine Ketones Trace H (Negative) Urine Blood Trace H (Negative) Urine RBC 10 H (0-5) /hpf Urine Mucus Rare H (None) /hpf 11/27/16 Range/Units 08:24 RBC (4.30-5.90) m/uL Hgb (13.0-17.5) gm/dL Hct (39.0-53.0) % ESR (0-15) mm/hr Sodium 136 L (137-145) mmol/L Potassium 5.6 H (3.5-5.1) mmol/L Chloride (98-107) mmol/L BUN 32 H (9-20) mg/dL Creatinine 1.38 H (0.66-1.25) mg/dL Glucose 107 H (74-99) mg/dL POC Glucose (mg/dL) (75-99) mg/dL Hemoglobin A1c (4.2-6.1) % AST (17-59) U/L ALT 16 L (21-72) U/L C-Reactive Protein (<10.0) mg/L Albumin (3.5-5.0) g/dL Urine Ketones (Negative) Urine Blood (Negative) Urine RBC (0-5) /hpf Urine Mucus (None) /hpf Assessment and Plan Plan: 1. Infected right knee prosthesis . Patient is scheduled to go for removal of the hardware and antibiotic spacer, patient will be started on IV antibiotic, after obtaining the result of the culture, patient is going to moderate risk surgery, there is no Indication for the post surgical intervention at this time , patient will be followed by or service after surgery. Infectious disease consultation appreciated. 2. Hypertension and hypertensive cardiovascular disease. We will continue patient on lisinopril 2.5 mg orally once every day, discontinue patient HCTZ. 3. Acute kidney injury with mild hyperkalemia. Continue IV fluid normal saline at 100 mL an hour. Recheck CMP magnesium tomorrow morning. 4. Hyperlipidemia. Continue Lipitor 20 mg orally once every day. 5. Diabetes mellitus type 2. Gave 80% of his Lantus dose which would be 20 units at bedtime along with a sliding scale insulin. IV fluids will be changed to D5 half-normal saline in the OR as to be switched back to saline at 75 mL an hour postoperatively. Hold off metformin and glyburide before surgery as to resume after surgery. 6. Enlarged prostate. Monitor for urinary retention, patient will need to have a Wheeler catheter in place, continue Flomax 0.4 g orally twice every day. 7. GERD. Continue Protonix 40 mg orally once every day. 8. Obesity with obstructive sleep apnea. Continue CPAP. 9. DVT prophylaxis. Patient will be started on Coumadin postoperatively. Discharge plan: To be determined Impression and plan of care have been directed as dictated by the signing physician. Augustina Washington nurse practitioner acting as scribe for signing physician.
[2016-11-27] MEDS ORDERED: NA PHOS,M-B/NA PHOS,DI-BA 133 ML ENEMA RECTAL PRN (15:38)
[2016-11-27] MEDS ORDERED: hydrOXYzine PAMOATE 25 MG CAP PO PRN (15:38)
[2016-11-27] MEDS ORDERED: TEMAZEPAM 15 MG CAP PO PRN (15:38)
[2016-11-27] MEDS ORDERED: NALOXONE 0.4 MG/ML 1 ML VIAL IV PRN (15:38)
[2016-11-27] MEDS ORDERED: BISACODYL 10 MG SUPP RECTAL PRN (15:38)
[2016-11-27] MEDS ORDERED: ONDANSETRON 4 MG/2 ML VIAL IVP PRN (15:38)
[2016-11-27] MEDS ORDERED: MAGNESIUM HYDROXIDE 2,400 MG/10 ML CUP PO PRN (15:38)
[2016-11-27] MEDS ORDERED: TOBRAMYCIN SULFATE 1.2 GM VIAL MISCELLANE ONE (15:48)
[2016-11-27] MEDS ORDERED: ceFAZolin 3,000 MG in SODIUM CHLORIDE 0.9% IRRIGATIO 3,000 ML IRRIGATION ONE (15:51)
[2016-11-27] MEDS: HYDROmorphone 1 MG/ML 1 ML SYRINGE IVP ONE ×6 (16:35→17:24)
[2016-11-27 16:39] LABS: Glucose,Whole Blood 80 mg/dL (75-99)
[2016-11-27] MEDS: HYDROmorphone 1 MG/ML 1 ML SYRINGE IVP PRN (17:59)
[2016-11-27] MEDS ORDERED: WARFARIN 2.5 MG TAB PO ONE (18:00)
[2016-11-27 20:39] LABS: Glucose,Whole Blood 168 mg/dL (75-99)
[2016-11-27] MEDS: INSULIN GLARGINE 100 UNIT/ML 10 ML VIAL SQ SCH (21:05)
[2016-11-27] MEDS: ATORVASTATIN 20 MG TAB PO SCH (21:06)
[2016-11-27] MEDS: SENNOSIDES-DOCUSATE SODIUM 1 EACH TAB PO SCH (21:06)
[2016-11-27] MEDS ORDERED: IV VANCOMYCIN PER PHARMACY 1 EACH MISC MISCELLANE PRN (23:57)
--- NOTE | 2016-11-27 23:57 | P.CON ---
Consult Note - . Consult date: 11/27/16 Assessment/Plan:: This is an 81-year-old male. He has a significant history of a right total knee arthroplasty done in 2008 followed by a left done in 2009. Regarding his right knee, patient states it is always been painful and he's had decreased range of motion and requires continued use of walker. He states it is never been right from the beginning. He states he has been feeling warm his has applied ice packs to his knee which has helped. He apparently has had fever and chills at home. He has been following with orthopedics and underwent an aspiration done on November 19 that showed normal skin renetta. Fluid was cloudy, RBCs 800, nucleated cells 35,200, Chiara nuclear WBCs 99, mononuclear 1. No crystals were seen. He underwent a bone scan on November 21 that showed infection in the right knee. Patient is now admitted to the surgical unit and planned for removal of right knee hardware and antibiotic spacer placement today. Since arrival, patient has been afebrile, white count is 9.2. BUN 29 creatinine 1.3. Urinalysis was clear with nitrate and leukoesterase negative. CRP was 133. Albumin 3.4. Patient does state that he has had decreased oral intake as he is trying to lose weight over the past 3 weeks. He noted that his blood sugar last week was in the 300s and normally runs 150. Hemoglobin A1c is 10.7. He has significant pain to the right knee with decreased range of motion. Please see the consult note is dictated by nurse practitioner Mrs. Augustina Washington. At this time cultures are pending. However does appear to have evidence of infection at that site. Antibiotic therapy with vancomycin will be utilized. We'll arrange for PICC line to be placed and plan a multiweek course of antibiotic therapy with vancomycin. He'll need improved glucose control. Unclear if we will do antibiotic therapy at home where she will have to do this at the extended care facility. He is quite disabled and does not appear to be capable of caring for himself at home. I agree with evaluation, assessment and plan as dictated [place] practitioner Mrs. Augustina Washington.
[2016-11-28] MEDS: HYDROmorphone 1 MG/ML 1 ML SYRINGE IVP PRN (00:28)
[2016-11-28] MEDS: SODIUM CHLORIDE 0.9% 1,000 ML IV SCH ×3 (00:33→17:42)
[2016-11-28] MEDS: ceFAZolin 2 GM in SODIUM CHLORIDE 0.9% 100 ML IVPB SCH ×3 (00:34→17:37)
[2016-11-28] MEDS ORDERED: VANCOMYCIN 1,750 MG in SODIUM CHLORIDE 0.9% 250 ML IVPB ONE (01:00)
[2016-11-28] MEDS: HYDROcodone/APAP 7.5-325MG 1 EACH TAB PO PRN ×3 (06:07→18:09)
[2016-11-28 07:03] LABS: Glucose,Whole Blood 104 mg/dL (75-99)
[2016-11-28] MEDS: INSULIN LISPRO (humaLOG) 300 UNIT/3 ML VIAL SQ SCH ×4 (07:37→22:39)
[2016-11-28] MEDS: metFORMIN 500 MG TAB PO SCH ×2 (08:04→22:39)
[2016-11-28] MEDS: LISINOPRIL 2.5 MG TAB PO SCH (08:04)
[2016-11-28] MEDS: glipiZIDE 10 MG TAB PO SCH ×2 (08:04→22:39)
[2016-11-28] MEDS: TAMSULOSIN 0.4 MG CAP.ER.24H PO SCH ×2 (08:05→22:39)
[2016-11-28 08:11] LABS: Basophils % (A) 0 %; CH 31.5; CHCM 32.2; Eosinophils % (A) 0 %; HCT 33.6 % (39.0-53.0); HDW 2.24; HGB 10.7 gm/dL (13.0-17.5); Luc # (Auto) 0.17; Luc % (Auto) 2; Lymphocytes # (A) 1.4 k/uL (1.0-4.8); Lymphocytes % (A) 17 %; MCH 31.3 pg (25.0-35.0); MCHC 31.9 g/dL (31.0-37.0); MCV 98.1 fL (80.0-100.0); Mean Platelet Volume 6.6; Monocytes # (A) 0.6 k/uL (0-1.0); Monocytes % (A) 7 %; Neutrophils # (A) 6.2 k/uL (1.3-7.7); Neutrophils % (A) 74 %; RBC 3.43 m/uL (4.30-5.90); RDW 12.3 % (11.5-15.5); WBC 8.4 k/uL (3.8-10.6); WBC (Perox) 8.91
[2016-11-28 08:21] LABS: Anion Gap 9 mmol/L; Blood Urea Nitrogen 25 mg/dL (9-20); Calcium 8.5 mg/dL (8.4-10.2); Carbon Dioxide 26 mmol/L (22-30); Chloride 101 mmol/L (98-107); Glucose 102 mg/dL (74-99); Non-African American GFR(MDRD) 60 (>60 ml/min/1.73 sqM); Potassium 4.3 mmol/L (3.5-5.1); Sodium 136 mmol/L (137-145)
[2016-11-28 08:36] LABS: INR 1.2 (<1.1); Prothrombin Time 12.1 sec (9.0-12.0)
--- NOTE | 2016-11-28 08:47 | P.PN ---
Subjective Principal diagnosis: Status post right knee hardware removal with antibiotic spacer placement This is a 81 year-old male post right knee hardware removal with antibiotic spacer placement. This is post-op day 1. The patient was evaluated in the chair at the bedside today. The patient denies nausea, vomiting, abdominal pain , shortness of breath, and chest pain this morning. The patient is diaphoretic at this time which he attributes to low blood sugar. He states that he is feeling better since eating breakfast. He states his pain is controlled at this time. The patient has not been up with physical therapy yet this morning. Objective - Vital Signs Vital signs: Vital Signs Temp 97.8 F 11/28/16 08:08 Pulse 85 11/28/16 08:08 Resp 20 11/28/16 08:08 BP 116/57 11/28/16 08:08 Pulse Ox 92 L 11/28/16 08:08 Intake & Output 11/27/16 11/28/16 11/28/16 18:59 06:59 18:59 Intake Total 2000 1840 Output Total 650 900 Balance 1350 940 Weight 117.889 kg 117.889 kg Intake: IV 1300 1050 Sodium Chloride 0.9% 1, 700 000 ml @ 100 mls/hr IV . Q10H [facility] Rx#:[id number] Vancomycin 1,750 mg In 250 Sodium Chloride 0.9% 250 ml @ 125 mls/hr IVPB ONCE ONE Rx#:[id number] ceFAZolin 2 gm In Sodium 100 Chloride 0.9% 100 ml @ 100 mls/hr IVPB Q8HR [facility] Rx#:[id number] Intake, IV Titration 700 Amount Sodium Chloride 0.9% 1, 700 000 ml @ 100 mls/hr IV . Q10H [facility] Rx#:[id number] Oral 790 Output: Urine 400 900 Uretheral (Wheeler) 900 Estimated Blood Loss 250 Other: Voiding Method Urinal Indwelling Catheter Indwelling Catheter - Exam The patient does not appear in acute distress. Alert and orientated x3. Dressing is clean dry and intact. Knee immobilizer is in place Calf is soft and nontender. Good foot and ankle motion without difficulty. Sensation and circulatory status is intact. - Labs CBC & Chem 7: 11/28/16 07:27 11/28/16 07:27 Labs: Abnormal Lab Results - Last 24 Hours (Table) 11/27/16 11/27/16 11/27/16 Range/Units 08:24 08:24 13:37 RBC 3.93 L (4.30-5.90) m/uL Hgb 12.2 L (13.0-17.5) gm/dL Hct 38.5 L (39.0-53.0) % PT (9.0-12.0) sec Sodium 136 L (137-145) mmol/L Potassium 5.6 H (3.5-5.1) mmol/L BUN 32 H (9-20) mg/dL Creatinine 1.38 H (0.66-1.25) mg/dL Glucose 107 H (74-99) mg/dL POC Glucose (mg/dL) 60 L (75-99) mg/dL ALT 16 L (21-72) U/L 11/27/16 11/27/16 11/28/16 Range/Units 13:51 20:38 07:01 RBC (4.30-5.90) m/uL Hgb (13.0-17.5) gm/dL Hct (39.0-53.0) % PT (9.0-12.0) sec Sodium (137-145) mmol/L Potassium (3.5-5.1) mmol/L BUN (9-20) mg/dL Creatinine (0.66-1.25) mg/dL Glucose (74-99) mg/dL POC Glucose (mg/dL) 102 H 168 H 104 H (75-99) mg/dL ALT (21-72) U/L 11/28/16 11/28/16 11/28/16 Range/Units 07:27 07:27 07:27 RBC 3.43 L (4.30-5.90) m/uL Hgb 10.7 L (13.0-17.5) gm/dL Hct 33.6 L (39.0-53.0) % PT 12.1 H (9.0-12.0) sec Sodium 136 L (137-145) mmol/L Potassium (3.5-5.1) mmol/L BUN 25 H (9-20) mg/dL Creatinine (0.66-1.25) mg/dL Glucose 102 H (74-99) mg/dL POC Glucose (mg/dL) (75-99) mg/dL ALT (21-72) U/L Microbiology - Last 24 Hours (Table) 11/27/16 15:10 Gram Stain - Preliminary Knee - Right Wound Culture - Preliminary 11/27/16 15:10 Anaerobic Culture - Preliminary Knee - Right 11/26/16 15:50 Blood Culture - Preliminary Blood No Growth after 24 hours 11/26/16 15:59 Blood Culture - Preliminary Blood No Growth after 24 hours Laboratory Tests 11/28/16 07:27 PT 12.1 H INR 1.2 Assessment and Plan (1) Status post right knee replacement Status: Acute (2) Infection of prosthetic right knee joint Status: Acute (3) 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 Continue pain control 2. Anticoagulation with Coumadin per protocol 3. Start physical therapy and ambulation, nonweightbearing to the right lower extremity 4. Keep immobilizer in place 5. PICC line placement for outpatient IV antibiotics per Dr. Hernandez 6. Anticipate discharge to skilled rehab
[2016-11-28] MEDS: VANCOMYCIN 1,500 MG in SODIUM CHLORIDE 0.9% 250 ML IVPB SCH (09:26)
--- NOTE | 2016-11-28 10:44 | OP ---
DATE OF SERVICE: 11/27/2016 SURGEON: MADELYN BARRAZA DO [employer] REPRESENTATIVE: ESTRELLA EDDY PREOPERATIVE DIAGNOSIS: Infection right total knee. POSTOPERATIVE DIAGNOSIS: Infection right total knee. OPERATION: Removal of right total knee components and medial meniscus insertion of antibiotics and a femoral tibial spacer in the right space intrusion. ANESTHESIA: ESTIMATED BLOOD LOSS: SPECIMENS REMOVED: COMPLICATIONS: OPERATIVE FINDINGS: DESCRIPTION OF PROCEDURE: Patient was taken to the operative suite and placed in supine position. Spinal anesthesia was performed by the Department of Anesthesiology. A Betadine prep is carried out over the entire knee to mid calf. Sterile drapes applied in the usual manner. A pneumatic tourniquet was inflated to 300 mmHg. A medial parapatellar incision was developed. Sharp dissection through the subcutaneous tissue performed. The medial retinaculum was incised. Culture and sensitivity was obtained. The patella was everted as the knee was taken through flexion and positioned in the leg edgar. Synovial biopsy was obtained for frozen tissue and sent to pathology. A bone saw was utilized in the helping remove the femoral component. The spacer with the tibial component was removed. Bone saw was utilized and the tibial plate and plate was removed in its entirety. The area was irrigated copiously with Pulsvac antibiotic solution. With the patella dislocated. The joint had significant erosion of the patellofemoral area as well as lateral femoral condyle. With the antibiotic solution of the femur and tibia, area again was irrigated copiously. The two components were cemented into place and cement was hardened. The thigh area was again irrigated with antibiotic solution. The knee was held in full extension and the Tobramycin antibiotic powder was placed in the depths of the wound. The medial retinaculum was reapproximated with 3-0 Vicryl sutures. The #2 Quill suture was utilized in retinaculum. Subcutaneous suture present with #2 Vicryl suture. Pneumatic tourniquet has been deflated prior to the closure with hemostasis controlled with electrocautery. The patient was transferred to recovery room in satisfactory post-op condition. Gross pathology: Sudden increase in pain of the past 3 weeks in the right knee. Culture has been obtained and components with the frozen section and antibiotics and wound care. OMARI
[2016-11-28 11:50] LABS: Glucose,Whole Blood 180 mg/dL (75-99)
[2016-11-28] MEDS ORDERED: LIDOCAINE 2% INJ 20 MG/ML (20 ML MDV) ONE (13:31)
[2016-11-28] MEDS ORDERED: LIDOCAINE 2% INJ 20 MG/ML SQ ONE (13:49)
--- NOTE | 2016-11-28 14:46 | IR ---
PICC LINE PLACEMENT: HISTORY: Infection requiring long-term antibiotic therapy PROCEDURE: Ultrasound and fluoroscopic guidance of PICC line placement. COMPLICATIONS: None ANESTHESIA: 1. 1% Lidocaine locally. FINDINGS/TECHNIQUE: The procedure was explained to the patient. The risks, complications, benefits and alternatives were discussed and any questions were answered. Informed consent was obtained. The patient was placed supine on the fluoroscopic table and prepped and draped in the usual sterile fash ion. Utilizing a 21 gauge needle and sonographic and fluoroscopic guidance, access in the left ceph alic vein was achieved and there is placement of a 0.018 guidewire. The vein is patent. A 4-F sheat h was placed over the guidewire. The guidewire and dilator were removed and a 4-F. PICC line was conchita isaac through the sheath with the tip at the level of the SVC. The sheath was removed, the catheter wa s flushed and sutured into position. The patient was stable throughout the procedure and remained st able upon discharge from the Department of Radiology. The vein puncture was patent under ultrasound. A chung scale image was obtained to document patency of the vein punctured. All elements of the maximal barrier technique were utilized. FLUOROSCOPY TIME: 0.1 minute IMPRESSION: Successful PICC line placement under ultrasound and fluoroscopic guidance.
--- NOTE | 2016-11-28 16:01 | XR ---
EXAMINATION TYPE: XR knee limited RT DATE OF EXAM: 11/28/2016 12:43 PM COMPARISON: Outside radiographs 11/08/2019 HISTORY: 81-year-old male postop antibiotic spacer, assess alignment TECHNIQUE: Portable AP and crosstable lateral views FINDINGS: There is been removal of the patient's right total knee arthroplasty with placement of antibiotic imp regnated cement. Alignment grossly anatomic. Soft tissue swelling and soft tissue gas with intra-parvez cular air and anterior skin po related to recent operation. IMPRESSION: Postoperative changes after right total knee arthroplasty removal and placement of antibiotic impregn ated cement.
--- NOTE | 2016-11-28 16:08 | P.PN ---
Subjective This is an 81-year-old male one of Dr. Larkin with a previous medical history significant for hypertension and hypertensive cardio vascular disease, hyperlipidemia, GERD, diabetes mellitus type 2, obesity with obstructive sleep apnea and obesity hypoventilation syndrome, history of osteoarthritis status post right total knee arthroplasty back in 2008 and left total knee of breast back in 2009, patient stated that he has been having issues with his right knee on and off with increased warmth and pain along with swelling, and he has been following up with orthopedic surgery for evaluation. He apparently underwent an aspiration done on November 19 that showed normal skin renetta. Fluid was cloudy, RBCs 800, nucleated cells 35,200, Chiara nuclear WBCs 99, mononuclear 1. No crystals were seen. He underwent a bone scan on November 21 that showed infection in the right knee. Patient is now admitted to the surgical unit and planned for removal of right knee hardware and antibiotic spacer placement that would be scheduled for tomorrow morning. Patient is sitting up in bed in no apparent distress he denies any chest pain, shortness breath, he has no abdominal pain, nausea, vomiting, he does complain of increased pain and swelling of the right knee and not able to ambulate. 11/27: Patient denies any new complaints. He continues to have right knee pain for which surgery is scheduled for 2:00 this afternoon. Sodium is 136, potassium 5.6, BUN 32 and creatinine 1.38. IV fluids increased to 100 mL per hour. Urinalysis was done with nitrate and leukoesterase negative. 11/28: Patient is going to have the hardware removed and antibiotic spacer placed in. Objective - Vital Signs Vital signs: Vital Signs Temp 97.8 F 11/28/16 08:08 Pulse 85 11/28/16 08:08 Resp 20 11/28/16 08:08 BP 116/57 11/28/16 08:08 Pulse Ox 92 L 11/28/16 08:08 Intake & Output 11/27/16 11/28/16 11/28/16 18:59 06:59 18:59 Intake Total 2000 1840 1690 Output Total 650 900 Balance 6417 895 8663 Weight 117.889 kg 117.889 kg Intake: IV 1300 1050 1050 Sodium Chloride 0.9% 1, 700 700 000 ml @ 100 mls/hr IV . Q10H [facility] Rx#:[id number] Vancomycin 1,750 mg In 250 250 Sodium Chloride 0.9% 250 ml @ 125 mls/hr IVPB ONCE ONE Rx#:[id number] ceFAZolin 2 gm In Sodium 100 100 Chloride 0.9% 100 ml @ 100 mls/hr IVPB Q8HR [facility] Rx#:[id number] Intake, IV Titration 700 Amount Sodium Chloride 0.9% 1, 700 000 ml @ 100 mls/hr IV . Q10H [facility] Rx#:[id number] Oral 790 640 Output: Urine 400 900 Uretheral (Wheeler) 900 Estimated Blood Loss 250 Other: Voiding Method Urinal Indwelling Catheter Indwelling Catheter - Exam - Exam General appearance: mild distress, morbidly obese - EENT Eyes: anicteric sclerae, EOMI, PERRLA, no ptosis, no scleral icterus, normal appearance ENT: hard of hearing, normal oropharynx, no thrush Ears: bilateral: normal - Neck Neck: no lymphadenopathy, normal ROM, no rigidity, no stridor, no thyromegaly Carotids: bilateral: upstroke normal Thyroid: bilateral: normal size - Respiratory Respiratory: bilateral: diminished, negative: dullness, rales, rhonchi, wheezing , prolonged expiration, prolonged inspiration - Cardiovascular Rhythm: regular Heart sounds: normal: S1, S2 Abnormal Heart Sounds: systolic murmur, no rub, no S3 Gallop, no S4 Gallop, no click - Gastrointestinal General gastrointestinal: normal bowel sounds, soft, no splenomegaly, no tenderness, no umbilical hernia, no ventral hernia - Integumentary Integumentary: normal, normal turgor - Neurologic Neurologic: CNII-XII intact - Musculoskeletal Musculoskeletal: generalized weakness, strength equal bilaterally - Psychiatric Psychiatric: A&O x's 3, appropriate affect, intact judgment & insight - Labs CBC & Chem 7: 11/28/16 07:27 11/28/16 07:27 Labs: Abnormal Lab Results - Last 24 Hours (Table) 11/27/16 11/27/16 11/27/16 Range/Units 13:37 13:51 20:38 RBC (4.30-5.90) m/uL Hgb (13.0-17.5) gm/dL Hct (39.0-53.0) % PT (9.0-12.0) sec Sodium (137-145) mmol/L BUN (9-20) mg/dL Glucose (74-99) mg/dL POC Glucose (mg/dL) 60 L 102 H 168 H (75-99) mg/dL 11/28/16 11/28/16 11/28/16 Range/Units 07:01 07:27 07:27 RBC 3.43 L (4.30-5.90) m/uL Hgb 10.7 L (13.0-17.5) gm/dL Hct 33.6 L (39.0-53.0) % PT (9.0-12.0) sec Sodium 136 L (137-145) mmol/L BUN 25 H (9-20) mg/dL Glucose 102 H (74-99) mg/dL POC Glucose (mg/dL) 104 H (75-99) mg/dL 11/28/16 11/28/16 Range/Units 07:27 11:41 RBC (4.30-5.90) m/uL Hgb (13.0-17.5) gm/dL Hct (39.0-53.0) % PT 12.1 H (9.0-12.0) sec Sodium (137-145) mmol/L BUN (9-20) mg/dL Glucose (74-99) mg/dL POC Glucose (mg/dL) 180 H (75-99) mg/dL Microbiology - Last 24 Hours (Table) 11/27/16 15:10 Gram Stain - Preliminary Knee - Right Wound Culture - Preliminary 11/27/16 15:10 Anaerobic Culture - Preliminary Knee - Right 11/26/16 15:50 Blood Culture - Preliminary Blood No Growth after 24 hours 11/26/16 15:59 Blood Culture - Preliminary Blood No Growth after 24 hours Assessment and Plan Plan: Assessment and Plan Plan: 1. Infected right knee prosthesis . Patient is scheduled to go for removal of the hardware and antibiotic spacer, patient will be started on IV antibiotic, after obtaining the result of the culture, patient is going to have his hardware removed from the right and an antibiotic spacer placed and along with IV antibiotic to be determined by the infectious disease service. He will most likely need to go to extended care facility for IV antibiotic. 2. Hypertension and hypertensive cardiovascular disease. We will continue patient on lisinopril 2.5 mg orally once every day, discontinue patient HCTZ. 3. Acute kidney injury with mild hyperkalemia. Continue IV fluid normal saline at 100 mL an hour. Recheck CMP magnesium tomorrow morning. 4. Hyperlipidemia. Continue Lipitor 20 mg orally once every day. 5. Diabetes mellitus type 2. Continue patient on Lantus 20 units at bedtime along with a sliding scale insulin. Monitor BJM very closely. 6. Enlarged prostate. Monitor for urinary retention, patient will need to have a Wheeler catheter in place, continue Flomax 0.4 g orally twice every day. 7. GERD. Continue Protonix 40 mg orally once every day. 8. Obesity with obstructive sleep apnea. Continue CPAP. 9. DVT prophylaxis. Patient will be started on Coumadin postoperatively. Discharge plan: To transfer to [facility] for IV anabiotic and for physical therapy and rehabilitation.
[2016-11-28 17:20] LABS: Glucose,Whole Blood 106 mg/dL (75-99)
[2016-11-28] MEDS ORDERED: WARFARIN 5 MG TAB PO ONE (18:00)
[2016-11-28 20:30] LABS: Glucose,Whole Blood 196 mg/dL (75-99)
[2016-11-28] MEDS: INSULIN GLARGINE 100 UNIT/ML 10 ML VIAL SQ SCH (22:39)
[2016-11-28] MEDS: ATORVASTATIN 20 MG TAB PO SCH (22:39)
[2016-11-28] MEDS: SENNOSIDES-DOCUSATE SODIUM 1 EACH TAB PO SCH (22:40)
--- NOTE | 2016-11-28 23:05 | P.PN ---
Subjective Principal diagnosis: Infection right total knee arthroplasty This is an 81-year-old male. He has a significant history of a right total knee arthroplasty done in 2008 followed by a left done in 2009. Regarding his right knee, patient states it is always been painful and he's had decreased range of motion and requires continued use of walker. He states it is never been right from the beginning. He states he has been feeling warm his has applied ice packs to his knee which has helped. He apparently has had fever and chills at home. He has been following with orthopedics and underwent an aspiration done on November 19 that showed normal skin renetta. Fluid was cloudy, RBCs 800, nucleated cells 35,200, Chiara nuclear WBCs 99, mononuclear 1. No crystals were seen. He underwent a bone scan on November 21 that showed infection in the right knee. Patient is now admitted to the surgical unit and planned for removal of right knee hardware and antibiotic spacer placement today. Since arrival, patient has been afebrile, white count is 9.2. BUN 29 creatinine 1.3. Urinalysis was clear with nitrate and leukoesterase negative. CRP was 133. Albumin 3.4. Patient does state that he has had decreased oral intake as he is trying to lose weight over the past 3 weeks. He noted that his blood sugar last week was in the 300s and normally runs 150. Hemoglobin A1c is 10.7. He has significant pain to the right knee with decreased range of motion. Patient is feeling better today. Pain levels down to a 3. The best it's been quite some time. Denies fevers chills or rigors. No new acute complaints. Objective - Vital Signs Vital signs: Vital Signs Temp 100.2 F H 11/28/16 22:38 Pulse 88 11/28/16 22:38 Resp 16 11/28/16 22:38 BP 127/67 11/28/16 22:38 Pulse Ox 95 11/28/16 22:38 Intake & Output 11/28/16 11/28/16 11/29/16 06:59 18:59 06:59 Intake Total 1840 1690 Output Total 900 400 Balance 940 1290 Weight 117.889 kg Intake: IV 1050 1050 Sodium Chloride 0.9% 1, 700 700 000 ml @ 100 mls/hr IV . Q10H [facility] Rx#:[id number] Vancomycin 1,750 mg In 250 250 Sodium Chloride 0.9% 250 ml @ 125 mls/hr IVPB ONCE ONE Rx#:[id number] ceFAZolin 2 gm In Sodium 100 100 Chloride 0.9% 100 ml @ 100 mls/hr IVPB Q8HR [facility] Rx#:[id number] Oral 790 640 Output: Urine 900 400 Uretheral (Wheeler) 900 Other: Voiding Method Indwelling Catheter Indwelling Catheter # Voids 1 - Exam Gen: This is an 81-year-old male. He is sitting up in a chair at the bedside and appears to be in no acute distress. HEENT: Head is atraumatic, normocephalic. Pupils equal, round. Sclerae is anicteric. NECK: Supple. No JVD. No lymphadenopathy. No thyromegaly. LUNGS: Diminished bilaterally. Clear to auscultation. No wheezes or rhonchi. No intercostal retractions. HEART: Regular rate and rhythm. Systolic murmur. ABDOMEN: Soft. Bowel sounds are present. No masses. No tenderness. EXTREMITIES: Trace pedal edema on the right. No calf tenderness. Significant tenderness to the right knee, decreased range of motion. Dorsalis pedis +2 bilaterally no purulent drainage from the knee is noted NEUROLOGICAL: Patient is awake, alert and oriented x3 - Labs CBC & Chem 7: 11/28/16 07:27 11/28/16 07:27 Labs: Abnormal Lab Results - Last 24 Hours (Table) 11/28/16 11/28/16 11/28/16 Range/Units 07:01 07:27 07:27 RBC 3.43 L (4.30-5.90) m/uL Hgb 10.7 L (13.0-17.5) gm/dL Hct 33.6 L (39.0-53.0) % PT (9.0-12.0) sec Sodium 136 L (137-145) mmol/L BUN 25 H (9-20) mg/dL Glucose 102 H (74-99) mg/dL POC Glucose (mg/dL) 104 H (75-99) mg/dL 11/28/16 11/28/16 11/28/16 Range/Units 07:27 11:41 17:16 RBC (4.30-5.90) m/uL Hgb (13.0-17.5) gm/dL Hct (39.0-53.0) % PT 12.1 H (9.0-12.0) sec Sodium (137-145) mmol/L BUN (9-20) mg/dL Glucose (74-99) mg/dL POC Glucose (mg/dL) 180 H 106 H (75-99) mg/dL 11/28/16 Range/Units 20:28 RBC (4.30-5.90) m/uL Hgb (13.0-17.5) gm/dL Hct (39.0-53.0) % PT (9.0-12.0) sec Sodium (137-145) mmol/L BUN (9-20) mg/dL Glucose (74-99) mg/dL POC Glucose (mg/dL) 196 H (75-99) mg/dL Microbiology - Last 24 Hours (Table) 11/27/16 15:10 Gram Stain - Preliminary Knee - Right Wound Culture - Preliminary 11/26/16 15:50 Blood Culture - Preliminary Blood No Growth after 48 hours 11/26/16 15:59 Blood Culture - Preliminary Blood No Growth after 48 hours 11/27/16 15:10 Anaerobic Culture - Preliminary Knee - Right Laboratory Results WBC 8.4 k/uL (3.8-10.6) 11/28/16 07:27 RBC 3.43 m/uL (4.30-5.90) L 11/28/16 07:27 Hgb 10.7 gm/dL (13.0-17.5) L 11/28/16 07:27 Hct 33.6 % (39.0-53.0) L 11/28/16 07:27 MCV 98.1 fL (80.0-100.0) 11/28/16 07:27 MCH 31.3 pg (25.0-35.0) 11/28/16 07:27 MCHC 31.9 g/dL (31.0-37.0) 11/28/16 07:27 RDW 12.3 % (11.5-15.5) 11/28/16 07:27 Plt Count 370 k/uL (150-450) 11/28/16 07:27 Neutrophils % 74 % 11/28/16 07:27 Lymphocytes % 17 % 11/28/16 07:27 Monocytes % 7 % 11/28/16 07:27 Eosinophils % 0 % 11/28/16 07:27 Basophils % 0 % 11/28/16 07:27 Neutrophils # 6.2 k/uL (1.3-7.7) 11/28/16 07:27 Lymphocytes # 1.4 k/uL (1.0-4.8) 11/28/16 07:27 Monocytes # 0.6 k/uL (0-1.0) 11/28/16 07:27 Eosinophils # 0.0 k/uL (0-0.7) 11/28/16 07:27 Basophils # 0.0 k/uL (0-0.2) 11/28/16 07:27 ESR 106 mm/hr (0-15) H 11/26/16 18:46 PT 12.1 sec (9.0-12.0) H 11/28/16 07:27 INR 1.2 (<1.1) 11/28/16 07:27 APTT 26.8 sec (22.0-30.0) 11/26/16 15:50 Sodium 136 mmol/L (137-145) L 11/28/16 07:27 Potassium 4.3 mmol/L (3.5-5.1) 11/28/16 07:27 Chloride 101 mmol/L (98-107) 11/28/16 07:27 Carbon Dioxide 26 mmol/L (22-30) 11/28/16 07:27 Anion Gap 9 mmol/L 11/28/16 07:27 BUN 25 mg/dL (9-20) H 11/28/16 07:27 Creatinine 1.17 mg/dL (0.66-1.25) 11/28/16 07:27 Est GFR (MDRD) Af Amer >60 (>60 ml/min/1.73 sqM) 11/28/16 07:27 Est GFR (MDRD) Non-Af 60 (>60 ml/min/1.73 sqM) 11/28/16 07:27 Glucose 102 mg/dL (74-99) H 11/28/16 07:27 POC Glucose (mg/dL) 196 mg/dL (75-99) H 11/28/16 20:28 POC Glu Band Sawmill Operator Abida Ureña 11/28/16 20:[address] Glu mg/dL 260 mg/dL 11/26/16 18:46 Hemoglobin A1c 10.7 % (4.2-6.1) H 11/26/16 18:46 Calcium 8.5 mg/dL (8.4-10.2) 11/28/16 07:27 Magnesium 1.8 mg/dL (1.6-2.3) 11/27/16 08:24 Total Bilirubin 0.8 mg/dL (0.2-1.3) 11/27/16 08:24 AST 23 U/L (17-59) 11/27/16 08:24 ALT 16 U/L (21-72) L 11/27/16 08:24 Alkaline Phosphatase 56 U/L (38-126) 11/27/16 08:24 C-Reactive Protein 133.3 mg/L (<10.0) H 11/26/16 15:50 Total Protein 7.2 g/dL (6.3-8.2) 11/27/16 08:24 Albumin 3.6 g/dL (3.5-5.0) 11/27/16 08:24 Urine Color Yellow 11/27/16 06:13 Urine Appearance Clear (Clear) 11/27/16 06:13 Urine pH 5.0 (5.0-8.0) 11/27/16 06:13 Ur Specific Lincoln 1.021 (1.001-1.035) 11/27/16 06:13 Urine Protein Negative (Negative) 11/27/16 06:13 Urine Glucose (UA) Negative (Negative) 11/27/16 06:13 Urine Ketones Trace (Negative) H 11/27/16 06:13 Urine Blood Trace (Negative) H 11/27/16 06:13 Urine Nitrite Negative (Negative) 11/27/16 06:13 Urine Bilirubin Negative (Negative) 11/27/16 06:13 Urine Urobilinogen <2.0 mg/dL (<2.0) 11/27/16 06:13 Ur Leukocyte Esterase Negative (Negative) 11/27/16 06:13 Urine RBC 10 /hpf (0-5) H 11/27/16 06:13 Urine WBC 2 /hpf (0-5) 11/27/16 06:13 Ur Squamous Epith Cells 1 /hpf (0-4) 11/27/16 06:13 Hyaline Casts 1 /lpf (0-2) 11/27/16 06:13 Urine Mucus Rare /hpf (None) H 11/27/16 06:13 Blood Type A Positive 11/26/16 15:59 Blood Type Recheck A Pos 11/26/16 15:59 Antibody Screen NEGATIVE 11/26/16 15:59 Spec Expiration Date 11/29/2016 - 3526 11/26/16 15:59 Microbiology 11/27/16 15:10 Knee - Right Gram Stain - Preliminary 11/27/16 15:10 Knee - Right Wound Culture - Preliminary 11/26/16 15:50 Blood Blood Culture - Preliminary No Growth after 48 hours 11/26/16 15:59 Blood Blood Culture - Preliminary No Growth after 48 hours 11/27/16 15:10 Knee - Right Anaerobic Culture - Preliminary Assessment and Plan (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 He started to have pain and discomfort. Also is taking the operating room there is evidence of infection at this site. The total knee arthroplasty was extracted and a antibiotic spacer was placed. PICC line is been placed for his six-week course of intravenous antibiotic therapy. Vancomycin has chosen given the negative culture so far the high likelihood of a gram-positive infection such as coagulase-negative staph. Pain control is improved. He's been able to get up to the commode with assistance. He was having some acute renal failure that is now resolved. No other acute new findings at this time. Arrangements for his antibiotic therapy after discharge and process. Status: Acute
[2016-11-29] MEDS: ceFAZolin 2 GM in SODIUM CHLORIDE 0.9% 100 ML IVPB SCH ×4 (00:23→23:16)
[2016-11-29] MEDS: SODIUM CHLORIDE 0.9% 1,000 ML IV SCH ×2 (00:26→13:41)
[2016-11-29] MEDS: VANCOMYCIN 1,500 MG in SODIUM CHLORIDE 0.9% 250 ML IVPB SCH ×2 (03:05→17:18)
[2016-11-29 07:16] LABS: Glucose,Whole Blood 61 mg/dL (75-99)
[2016-11-29 07:39] LABS: Glucose,Whole Blood 94 mg/dL (75-99)
[2016-11-29] MEDS: INSULIN LISPRO (humaLOG) 300 UNIT/3 ML VIAL SQ SCH ×4 (08:39→21:14)
[2016-11-29] MEDS: metFORMIN 500 MG TAB PO SCH ×2 (08:41→20:53)
[2016-11-29] MEDS: glipiZIDE 10 MG TAB PO SCH (08:41)
[2016-11-29] MEDS: TAMSULOSIN 0.4 MG CAP.ER.24H PO SCH ×2 (08:41→20:58)
[2016-11-29] MEDS: LISINOPRIL 2.5 MG TAB PO SCH (08:41)
[2016-11-29 08:49] LABS: CH 31.2; CHCM 32.2; HDW 2.28; HGB 10.7 gm/dL (13.0-17.5); MCH 31.5 pg (25.0-35.0); MCHC 32.5 g/dL (31.0-37.0); MCV 96.9 fL (80.0-100.0); Mean Platelet Volume 6.9; RDW 12.2 % (11.5-15.5); WBC 8.5 k/uL (3.8-10.6)
[2016-11-29 08:58] LABS: INR 1.6 (<1.1); Prothrombin Time 15.6 sec (9.0-12.0)
[2016-11-29 09:07] LABS: Anion Gap 9 mmol/L; Blood Urea Nitrogen 19 mg/dL (9-20); Calcium 8.1 mg/dL (8.4-10.2); Carbon Dioxide 25 mmol/L (22-30); Chloride 101 mmol/L (98-107); Glucose 134 mg/dL (74-99); Non-African American GFR(MDRD) >60 (>60 ml/min/1.73 sqM); Potassium 4.3 mmol/L (3.5-5.1); Sodium 135 mmol/L (137-145)
--- NOTE | 2016-11-29 09:23 | P.PN ---
Subjective Principal diagnosis: Status post right knee hardware removal with antibiotic spacer placement This is a 81 year-old male post right knee hardware removal with antibiotic spacer placement. This is post-op day 2. The patient was evaluated in the chair at the bedside today. The patient denies nausea, vomiting, abdominal pain , shortness of breath, and chest pain this morning. The patient states he is sleepy this morning. He states his pain is controlled at this time. PICC line was placed yesterday. Objective - Vital Signs Vital signs: Vital Signs Temp 98.4 F 11/29/16 07:47 Pulse 88 11/29/16 08:00 Resp 17 11/29/16 08:00 BP 122/73 11/29/16 07:47 Pulse Ox 93 L 11/29/16 07:47 Intake & Output 11/28/16 11/29/16 11/29/16 18:59 06:59 18:59 Intake Total 1690 1150 Output Total 400 1100 600 Balance 1290 50 -600 Weight 117.889 kg 117.889 kg Intake: IV 1050 1150 Sodium Chloride 0.9% 1, 700 800 000 ml @ 100 mls/hr IV . Q10H [facility] Rx#:[id number] Vancomycin 1,500 mg In 250 Sodium Chloride 0.9% 250 ml @ 125 mls/hr IVPB Q16H [facility] Rx#:[id number] Vancomycin 1,750 mg In 250 Sodium Chloride 0.9% 250 ml @ 125 mls/hr IVPB ONCE ONE Rx#:[id number] ceFAZolin 2 gm In Sodium 100 100 Chloride 0.9% 100 ml @ 100 mls/hr IVPB Q8HR [facility] Rx#:[id number] Oral 640 Output: Urine 400 1100 600 Uretheral (Wheeler) 1100 600 Other: Voiding Method Indwelling Catheter Indwelling Catheter Indwelling Catheter # Voids 1 - Exam The patient does not appear in acute distress. Alert and orientated x3. Dressing is clean dry and intact. Incision appears fine without erythema or active drainage. Tori are in place. Knee immobilizer is in place. Calf is soft and nontender. Good foot and ankle motion without difficulty. Sensation and circulatory status is intact. - Labs CBC & Chem 7: 11/29/16 08:19 11/29/16 08:19 Labs: Abnormal Lab Results - Last 24 Hours (Table) 11/28/16 11/28/16 11/28/16 Range/Units 11:41 17:16 20:28 RBC (4.30-5.90) m/uL Hgb (13.0-17.5) gm/dL Hct (39.0-53.0) % PT (9.0-12.0) sec Sodium (137-145) mmol/L Glucose (74-99) mg/dL POC Glucose (mg/dL) 180 H 106 H 196 H (75-99) mg/dL Calcium (8.4-10.2) mg/dL 11/29/16 11/29/16 11/29/16 Range/Units 07:15 08:19 08:19 RBC 3.40 L (4.30-5.90) m/uL Hgb 10.7 L (13.0-17.5) gm/dL Hct 33.0 L (39.0-53.0) % PT (9.0-12.0) sec Sodium 135 L (137-145) mmol/L Glucose 134 H (74-99) mg/dL POC Glucose (mg/dL) 61 L (75-99) mg/dL Calcium 8.1 L (8.4-10.2) mg/dL 11/29/16 Range/Units 08:19 RBC (4.30-5.90) m/uL Hgb (13.0-17.5) gm/dL Hct (39.0-53.0) % PT 15.6 H (9.0-12.0) sec Sodium (137-145) mmol/L Glucose (74-99) mg/dL POC Glucose (mg/dL) (75-99) mg/dL Calcium (8.4-10.2) mg/dL Microbiology - Last 24 Hours (Table) 11/27/16 15:10 Gram Stain - Preliminary Knee - Right Wound Culture - Preliminary 11/26/16 15:50 Blood Culture - Preliminary Blood No Growth after 48 hours 11/26/16 15:59 Blood Culture - Preliminary Blood No Growth after 48 hours Laboratory Tests 11/29/16 08:19 PT 15.6 H INR 1.6 Assessment and Plan (1) Status post right knee replacement Status: Acute (2) Infection of prosthetic right knee joint Status: Acute (3) 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 Continue pain control 2. Anticoagulation with Coumadin per protocol 3. Continue physical therapy and ambulation, nonweightbearing to the right lower extremity 4. Keep immobilizer in place 5. IV antibiotics per Dr. Hernandez 6. Anticipate discharge to skilled rehab once arrangements have been made
[2016-11-29] MEDS ORDERED: INSULIN GLARGINE 100 UNIT/ML 10 ML VIAL SQ SCH (10:11)
[2016-11-29 11:56] LABS: Glucose,Whole Blood 93 mg/dL (75-99)
[2016-11-29] MEDS: HYDROcodone/APAP 7.5-325MG 1 EACH TAB PO PRN (12:06)
--- NOTE | 2016-11-29 15:21 | P.PN ---
Subjective This is an 81-year-old male one of Dr. Larkin with a previous medical history significant for hypertension and hypertensive cardio vascular disease, hyperlipidemia, GERD, diabetes mellitus type 2, obesity with obstructive sleep apnea and obesity hypoventilation syndrome, history of osteoarthritis status post right total knee arthroplasty back in 2008 and left total knee of breast back in 2009, patient stated that he has been having issues with his right knee on and off with increased warmth and pain along with swelling, and he has been following up with orthopedic surgery for evaluation. He apparently underwent an aspiration done on November 19 that showed normal skin renetta. Fluid was cloudy, RBCs 800, nucleated cells 35,200, Chiara nuclear WBCs 99, mononuclear 1. No crystals were seen. He underwent a bone scan on November 21 that showed infection in the right knee. Patient is now admitted to the surgical unit and planned for removal of right knee hardware and antibiotic spacer placement that would be scheduled for tomorrow morning. Patient is sitting up in bed in no apparent distress he denies any chest pain, shortness breath, he has no abdominal pain, nausea, vomiting, he does complain of increased pain and swelling of the right knee and not able to ambulate. 11/27: Patient denies any new complaints. He continues to have right knee pain for which surgery is scheduled for 2:00 this afternoon. Sodium is 136, potassium 5.6, BUN 32 and creatinine 1.38. IV fluids increased to 100 mL per hour. Urinalysis was done with nitrate and leukoesterase negative. 11/28: Patient is status post removal of hardware in the right total knee and placement of antibiotic spacer on November 27. Pathology report shows acute inflammation. Fibrosis, fat necrosis, chronic inflammation and histiocytic inflammation with pigment. Patient's blood sugars are low and he is only on a clear liquid diet. Diet will be advanced to soft and as tolerated. Lantus decreased to 16 units and glipizide to 5 mg twice daily. Wheeler catheter to be discontinued. His INR today is 1.6. Coumadin 7.5 mg added tonight. Temperature max is 100.2. Dr. Hernandez has ordered a PICC line placement and plan for vancomycin at [facility]. Patient is to be nonweightbearing on the right leg. Knee immobilizer is in place. Objective - Vital Signs Vital signs: Vital Signs Temp 98.4 F 11/29/16 07:47 Pulse 88 05/19/17 08:00 Resp 17 11/29/16 08:00 BP 122/73 11/29/16 07:47 Pulse Ox 93 L 11/29/16 07:47 Intake & Output 11/28/16 11/29/16 11/29/16 18:59 06:59 18:59 Intake Total 1690 1150 Output Total 400 1100 600 Balance 1290 50 -600 Weight 117.889 kg 117.889 kg Intake: IV 1050 1150 Sodium Chloride 0.9% 1, 700 800 000 ml @ 100 mls/hr IV . Q10H [facility] Rx#:[id number] Vancomycin 1,500 mg In 250 Sodium Chloride 0.9% 250 ml @ 125 mls/hr IVPB Q16H [facility] Rx#:[id number] Vancomycin 1,750 mg In 250 Sodium Chloride 0.9% 250 ml @ 125 mls/hr IVPB ONCE ONE Rx#:[id number] ceFAZolin 2 gm In Sodium 100 100 Chloride 0.9% 100 ml @ 100 mls/hr IVPB Q8HR [facility] Rx#:[id number] Oral 640 Output: Urine 400 1100 600 Uretheral (Wheeler) 1100 600 Other: Voiding Method Indwelling Catheter Indwelling Catheter Indwelling Catheter # Voids 1 - Exam General appearance: mild distress, morbidly obese - EENT Eyes: anicteric sclerae, EOMI, PERRLA, no ptosis, no scleral icterus, normal appearance ENT: hard of hearing, normal oropharynx, no thrush Ears: bilateral: normal - Neck Neck: no lymphadenopathy, normal ROM, no rigidity, no stridor, no thyromegaly Carotids: bilateral: upstroke normal Thyroid: bilateral: normal size - Respiratory Respiratory: bilateral: diminished, negative: dullness, rales, rhonchi, wheezing , prolonged expiration, prolonged inspiration - Cardiovascular Rhythm: regular Heart sounds: normal: S1, S2 Abnormal Heart Sounds: systolic murmur, no rub, no S3 Gallop, no S4 Gallop, no click - Gastrointestinal General gastrointestinal: normal bowel sounds, soft, no splenomegaly, no tenderness, no umbilical hernia, no ventral hernia - Integumentary Integumentary: normal, normal turgor - Neurologic Neurologic: CNII-XII intact - Musculoskeletal Musculoskeletal: generalized weakness, strength equal bilaterally - Psychiatric Psychiatric: A&O x's 3, appropriate affect, intact judgment & insight - Labs CBC & Chem 7: 11/29/16 08:19 11/29/16 08:19 Labs: Abnormal Lab Results - Last 24 Hours (Table) 11/28/16 11/28/16 11/28/16 Range/Units 11:41 17:16 20:28 RBC (4.30-5.90) m/uL Hgb (13.0-17.5) gm/dL Hct (39.0-53.0) % PT (9.0-12.0) sec Sodium (137-145) mmol/L Glucose (74-99) mg/dL POC Glucose (mg/dL) 180 H 106 H 196 H (75-99) mg/dL Calcium (8.4-10.2) mg/dL 11/29/16 11/29/16 11/29/16 Range/Units 07:15 08:19 08:19 RBC 3.40 L (4.30-5.90) m/uL Hgb 10.7 L (13.0-17.5) gm/dL Hct 33.0 L (39.0-53.0) % PT (9.0-12.0) sec Sodium 135 L (137-145) mmol/L Glucose 134 H (74-99) mg/dL POC Glucose (mg/dL) 61 L (75-99) mg/dL Calcium 8.1 L (8.4-10.2) mg/dL 11/29/16 Range/Units 08:19 RBC (4.30-5.90) m/uL Hgb (13.0-17.5) gm/dL Hct (39.0-53.0) % PT 15.6 H (9.0-12.0) sec Sodium (137-145) mmol/L Glucose (74-99) mg/dL POC Glucose (mg/dL) (75-99) mg/dL Calcium (8.4-10.2) mg/dL Microbiology - Last 24 Hours (Table) 11/27/16 15:10 Gram Stain - Preliminary Knee - Right Wound Culture - Preliminary 11/26/16 15:50 Blood Culture - Preliminary Blood No Growth after 48 hours 11/26/16 15:59 Blood Culture - Preliminary Blood No Growth after 48 hours Assessment and Plan Plan: 1. Infected right knee prosthesis status post removal of the hardware and antibiotic spacer placement. Dr. Hernandez has chosen vancomycin. PICC line to be placed today. Continue pain management. Patient is to be nonweightbearing on the right leg. Knee immobilizer in place. Physical therapy per orthopedics. 2. Hypertension and hypertensive cardiovascular disease. We will continue patient on lisinopril 2.5 mg orally once every day, discontinue patient HCTZ. 3. Acute kidney injury with mild hyperkalemia. Continue IV fluid normal saline at 100 mL an hour. Recheck CMP magnesium tomorrow morning. 4. Hyperlipidemia. Continue Lipitor 20 mg orally once every day. 5. Diabetes mellitus type 2. Lantus decreased to 16 units at bedtime, continue sliding scale insulin, glipizide decreased to 5 mg twice daily. 6. Enlarged prostate. Monitor for urinary retention, patient will need to have a Wheeler catheter in place, continue Flomax 0.4 g orally twice every day. Discontinue Wheeler catheter 7. GERD. Continue Protonix 40 mg orally once every day. 8. Obesity with obstructive sleep apnea. Continue CPAP. 9. DVT prophylaxis. Patient will be started on Coumadin postoperatively. Patient is scheduled for Coumadin 7.5 mg tonight. Monitor INR. Discharge plan: To transfer to [facility] for IV anabiotic and for physical therapy and rehabilitation. Impression and plan of care have been directed as dictated by the signing physician. Augustina Washington nurse practitioner acting as scribe for signing physician.
[2016-11-29 17:10] LABS: Glucose,Whole Blood 106 mg/dL (75-99)
[2016-11-29] MEDS ORDERED: WARFARIN 2.5 MG TAB PO ONE (18:00)
[2016-11-29] MEDS ORDERED: WARFARIN 7.5 MG TAB PO ONE (18:00)
[2016-11-29] MEDS: SENNOSIDES-DOCUSATE SODIUM 1 EACH TAB PO SCH (20:52)
[2016-11-29] MEDS: ATORVASTATIN 20 MG TAB PO SCH (20:53)
[2016-11-29] MEDS: glipiZIDE 5 MG TAB PO SCH (21:11)
[2016-11-29 21:15] LABS: Glucose,Whole Blood 142 mg/dL (75-99)
--- NOTE | 2016-11-29 23:37 | P.PN ---
Subjective Principal diagnosis: Infection right total knee arthroplasty This is an 81-year-old male. He has a significant history of a right total knee arthroplasty done in 2008 followed by a left done in 2009. Regarding his right knee, patient states it is always been painful and he's had decreased range of motion and requires continued use of walker. He states it is never been right from the beginning. He states he has been feeling warm his has applied ice packs to his knee which has helped. He apparently has had fever and chills at home. He has been following with orthopedics and underwent an aspiration done on November 19 that showed normal skin renetta. Fluid was cloudy, RBCs 800, nucleated cells 35,200, Chiara nuclear WBCs 99, mononuclear 1. No crystals were seen. He underwent a bone scan on November 21 that showed infection in the right knee. Patient is now admitted to the surgical unit and planned for removal of right knee hardware and antibiotic spacer placement today. Since arrival, patient has been afebrile, white count is 9.2. BUN 29 creatinine 1.3. Urinalysis was clear with nitrate and leukoesterase negative. CRP was 133. Albumin 3.4. Patient does state that he has had decreased oral intake as he is trying to lose weight over the past 3 weeks. He noted that his blood sugar last week was in the 300s and normally runs 150. Hemoglobin A1c is 10.7. He has significant pain to the right knee with decreased range of motion. Patient is feeling better today. Pain levels down to a 3. The best it's been quite some time. Denies fevers chills or rigors. No new acute complaints. Objective - Vital Signs Vital signs: Vital Signs Temp 98.9 F 11/29/16 22:26 Pulse 68 11/29/16 22:26 Resp 18 11/29/16 22:26 BP 111/59 11/29/16 22:26 Pulse Ox 97 11/29/16 22:26 Intake & Output 11/29/16 11/29/16 11/30/16 06:59 18:59 06:59 Intake Total 1150 500 Output Total 1100 835 Balance 50 -335 Weight 117.889 kg Intake: IV 1150 500 Sodium Chloride 0.9% 1, 800 500 000 ml @ 100 mls/hr IV . Q10H [facility] Rx#:[id number] Vancomycin 1,500 mg In 250 Sodium Chloride 0.9% 250 ml @ 125 mls/hr IVPB Q16H [facility] Rx#:[id number] ceFAZolin 2 gm In Sodium 100 Chloride 0.9% 100 ml @ 100 mls/hr IVPB Q8HR [facility] Rx#:[id number] Output: Urine 1100 835 Uretheral (Wheeler) 1100 835 Other: Voiding Method Indwelling Catheter Indwelling Catheter Indwelling Catheter # Voids 2 # Bowel Movements 1 - Exam Gen: This is an 81-year-old male. He is sitting up in a chair at the bedside and appears to be in no acute distress. HEENT: Head is atraumatic, normocephalic. Pupils equal, round. Sclerae is anicteric. NECK: Supple. No JVD. No lymphadenopathy. No thyromegaly. LUNGS: Diminished bilaterally. Clear to auscultation. No wheezes or rhonchi. No intercostal retractions. HEART: Regular rate and rhythm. Systolic murmur. ABDOMEN: Soft. Bowel sounds are present. No masses. No tenderness. EXTREMITIES: Trace pedal edema on the right. No calf tenderness. Significant tenderness to the right knee, decreased range of motion. Dorsalis pedis +2 bilaterally no purulent drainage from the knee is noted NEUROLOGICAL: Patient is awake, alert and oriented x3 - Labs CBC & Chem 7: 11/29/16 08:19 11/29/16 08:19 Labs: Abnormal Lab Results - Last 24 Hours (Table) 11/29/16 11/29/16 11/29/16 Range/Units 07:15 08:19 08:19 RBC 3.40 L (4.30-5.90) m/uL Hgb 10.7 L (13.0-17.5) gm/dL Hct 33.0 L (39.0-53.0) % PT (9.0-12.0) sec Sodium 135 L (137-145) mmol/L Glucose 134 H (74-99) mg/dL POC Glucose (mg/dL) 61 L (75-99) mg/dL Calcium 8.1 L (8.4-10.2) mg/dL 11/29/16 11/29/16 11/29/16 Range/Units 08:19 17:07 21:13 RBC (4.30-5.90) m/uL Hgb (13.0-17.5) gm/dL Hct (39.0-53.0) % PT 15.6 H (9.0-12.0) sec Sodium (137-145) mmol/L Glucose (74-99) mg/dL POC Glucose (mg/dL) 106 H 142 H (75-99) mg/dL Calcium (8.4-10.2) mg/dL Microbiology - Last 24 Hours (Table) 11/27/16 15:10 Anaerobic Culture - Preliminary Knee - Right 11/26/16 15:50 Blood Culture - Preliminary Blood No Growth after 72 hours 11/26/16 15:59 Blood Culture - Preliminary Blood No Growth after 72 hours 11/27/16 15:10 Gram Stain - Preliminary Knee - Right Wound Culture - Preliminary Laboratory Results WBC 8.5 k/uL (3.8-10.6) 11/29/16 08:19 RBC 3.40 m/uL (4.30-5.90) L 11/29/16 08:19 Hgb 10.7 gm/dL (13.0-17.5) L 11/29/16 08:19 Hct 33.0 % (39.0-53.0) L 11/29/16 08:19 MCV 96.9 fL (80.0-100.0) 11/29/16 08:19 MCH 31.5 pg (25.0-35.0) 11/29/16 08:19 MCHC 32.5 g/dL (31.0-37.0) 11/29/16 08:19 RDW 12.2 % (11.5-15.5) 11/29/16 08:19 Plt Count 336 k/uL (150-450) 11/29/16 08:19 Neutrophils % 74 % 11/28/16 07:27 Lymphocytes % 17 % 11/28/16 07:27 Monocytes % 7 % 11/28/16 07:27 Eosinophils % 0 % 11/28/16 07:27 Basophils % 0 % 11/28/16 07:27 Neutrophils # 6.2 k/uL (1.3-7.7) 11/28/16 07:27 Lymphocytes # 1.4 k/uL (1.0-4.8) 11/28/16 07:27 Monocytes # 0.6 k/uL (0-1.0) 11/28/16 07:27 Eosinophils # 0.0 k/uL (0-0.7) 11/28/16 07:27 Basophils # 0.0 k/uL (0-0.2) 11/28/16 07:27 ESR 106 mm/hr (0-15) H 11/26/16 18:46 PT 15.6 sec (9.0-12.0) H 11/29/16 08:19 INR 1.6 (<1.1) 11/29/16 08:19 APTT 26.8 sec (22.0-30.0) 11/26/16 15:50 Sodium 135 mmol/L (137-145) L 11/29/16 08:19 Potassium 4.3 mmol/L (3.5-5.1) 11/29/16 08:19 Chloride 101 mmol/L (98-107) 11/29/16 08:19 Carbon Dioxide 25 mmol/L (22-30) 11/29/16 08:19 Anion Gap 9 mmol/L 11/29/16 08:19 BUN 19 mg/dL (9-20) 11/29/16 08:19 Creatinine 1.09 mg/dL (0.66-1.25) 11/29/16 08:19 Est GFR (MDRD) Af Amer >60 (>60 ml/min/1.73 sqM) 11/29/16 08:19 Est GFR (MDRD) Non-Af >60 (>60 ml/min/1.73 sqM) 11/29/16 08:19 Glucose 134 mg/dL (74-99) H 11/29/16 08:19 POC Glucose (mg/dL) 142 mg/dL (75-99) H 11/29/16 21:13 POC Glu Accounts Payable Manager ID Leaenn Damon 11/29/16 21:[address] Glu mg/dL 260 mg/dL 11/26/16 18:46 Hemoglobin A1c 10.7 % (4.2-6.1) H 11/26/16 18:46 Calcium 8.1 mg/dL (8.4-10.2) L 11/29/16 08:19 Magnesium 1.8 mg/dL (1.6-2.3) 11/27/16 08:24 Total Bilirubin 0.8 mg/dL (0.2-1.3) 11/27/16 08:24 AST 23 U/L (17-59) 11/27/16 08:24 ALT 16 U/L (21-72) L 11/27/16 08:24 Alkaline Phosphatase 56 U/L (38-126) 11/27/16 08:24 C-Reactive Protein 133.3 mg/L (<10.0) H 11/26/16 15:50 Total Protein 7.2 g/dL (6.3-8.2) 11/27/16 08:24 Albumin 3.6 g/dL (3.5-5.0) 11/27/16 08:24 Urine Color Yellow 11/27/16 06:13 Urine Appearance Clear (Clear) 11/27/16 06:13 Urine pH 5.0 (5.0-8.0) 11/27/16 06:13 Ur Specific [place] 1.021 (1.001-1.035) 11/27/16 06:13 Urine Protein Negative (Negative) 11/27/16 06:13 Urine Glucose (UA) Negative (Negative) 11/27/16 06:13 Urine Ketones Trace (Negative) H 11/27/16 06:13 Urine Blood Trace (Negative) H 11/27/16 06:13 Urine Nitrite Negative (Negative) 11/27/16 06:13 Urine Bilirubin Negative (Negative) 11/27/16 06:13 Urine Urobilinogen <2.0 mg/dL (<2.0) 11/27/16 06:13 Ur Leukocyte Esterase Negative (Negative) 11/27/16 06:13 Urine RBC 10 /hpf (0-5) H 11/27/16 06:13 Urine WBC 2 /hpf (0-5) 11/27/16 06:13 Ur Squamous Epith Cells 1 /hpf (0-4) 11/27/16 06:13 Hyaline Casts 1 /lpf (0-2) 11/27/16 06:13 Urine Mucus Rare /hpf (None) H 11/27/16 06:13 Blood Type A Positive 11/26/16 15:59 Blood Type Recheck A Pos 11/26/16 15:59 Antibody Screen NEGATIVE 11/26/16 15:59 Spec Expiration Date 11/29/2016 87511/26/16 15:59 Microbiology 11/27/16 15:10 Knee - Right Anaerobic Culture - Preliminary 11/26/16 15:50 Blood Blood Culture - Preliminary No Growth after 72 hours 11/26/16 15:59 Blood Blood Culture - Preliminary No Growth after 72 hours 11/27/16 15:10 Knee - Right Gram Stain - Preliminary 11/27/16 15:10 Knee - Right Wound Culture - Preliminary Assessment and Plan (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 He started to have pain and discomfort. Also is taking the operating room there is evidence of infection at this site. The total knee arthroplasty was extracted and a antibiotic spacer was placed. PICC line is been placed for his six-week course of intravenous antibiotic therapy. Vancomycin has chosen given the negative culture so far the high likelihood of a gram-positive infection such as coagulase-negative staph. Pain control is improved. He's been able to get up to the commode with assistance. He was having some acute renal failure that is now resolved. No other acute new findings at this time. Arrangements for his antibiotic therapy after discharge are in process. Status: Acute
[2016-11-30] MEDS: SODIUM CHLORIDE 0.9% 1,000 ML IV SCH (03:50)
[2016-11-30 07:29] LABS: Glucose,Whole Blood 86 mg/dL (75-99)
[2016-11-30 08:32] VITALS: BP 123/59; PULSE 81; RESP 16; TEMP 98.4
[2016-11-30 08:57] LABS: Basophils % (A) 1 %; CH 31.1; Eosinophils # (A) 0.1 k/uL (0-0.7); Eosinophils % (A) 1 %; HCT 31.3 % (39.0-53.0); HDW 2.29; HGB 9.9 gm/dL (13.0-17.5); Luc # (Auto) 0.19; Luc % (Auto) 3; Lymphocytes # (A) 1.6 k/uL (1.0-4.8); Lymphocytes % (A) 23 %; MCH 30.8 pg (25.0-35.0); MCHC 31.6 g/dL (31.0-37.0); MCV 97.4 fL (80.0-100.0); Mean Platelet Volume 6.8; Monocytes # (A) 0.5 k/uL (0-1.0); Monocytes % (A) 6 %; Neutrophils # (A) 4.8 k/uL (1.3-7.7); Neutrophils % (A) 67 %; RBC 3.22 m/uL (4.30-5.90); RDW 12.3 % (11.5-15.5); WBC 7.2 k/uL (3.8-10.6); WBC (Perox) 7.33
[2016-11-30] MEDS ORDERED: VANCOMYCIN TROUGH DUE 1 EACH MISC MISCELLANE ONE (09:00)
[2016-11-30 09:08] LABS: Prothrombin Time 19.5 sec (9.0-12.0)
[2016-11-30] MEDS: TAMSULOSIN 0.4 MG CAP.ER.24H PO SCH (09:51)
[2016-11-30] MEDS: LISINOPRIL 2.5 MG TAB PO SCH (09:51)
[2016-11-30] MEDS: ceFAZolin 2 GM in SODIUM CHLORIDE 0.9% 100 ML IVPB SCH (09:51)
[2016-11-30] MEDS: metFORMIN 500 MG TAB PO SCH (09:51)
[2016-11-30] MEDS: glipiZIDE 5 MG TAB PO SCH (09:51)
[2016-11-30] MEDS: INSULIN LISPRO (humaLOG) 300 UNIT/3 ML VIAL SQ SCH ×2 (09:52→12:30)
--- NOTE | 2016-11-30 10:58 | P.DS ---
Providers Date of admission: 11/26/16 15:22 Expected date of discharge: 11/30/16 Attending physician: Otilio Contreras Consults: 11/26/16 15:19 Consult Physician Routine Consulting Provider: Leonard Larkin Reason/Comments: medical management Do you want consulting provider notified?: Yes 11/26/16 15:24 Consult Physician Routine Consulting Provider: Leonard Hernandez Reason/Comments: Infected right TKA Do you want consulting provider notified?: Yes Primary care physician: Leonard Larkin - Discharge Diagnosis(es) (1) Infection of prosthetic right knee joint The patient is a pleasant 81-year-old male who is known patient of Dr. Contreras. The patient was admitted directly from our office on 11/26/2016 for hardware removal and /antibiotic spacer placement to the right knee. He underwent the procedure on 11/27/2016. He tolerated procedure well without complication. His postoperative hospital course has remained without complication. Infectious disease has been following have recommended continuous IV antibiotics as an outpatient. Internal medicine is also assisting with postoperative medical management. On day of discharge he is afebrile, vital signs stable, labs within acceptable ranges, wound benign, calf is soft and nontender, abdomen is soft and nontender, neurovascular status intact with 2+ dorsalis pedis pulses present and less than 2 second cap refill. He is tolerating by mouth and meds and diet, voiding without difficulty, positive flatus pain is controlled and denies new complaints. Review systems is negative for fever, chills, chest pain, shortness breath, nausea, vomiting, dizziness, headaches, calf pain, abdominal pain, numbness, tingling, slurred speech or other. Current Visit: Yes Status: Acute Priority: Medium (2) Status post right knee replacement Current Visit: Yes Status: Acute Priority: Medium Procedures: Removal of right knee prosthesis hardware and insertion of antibiotic spacer Patient Condition at Discharge: Stable Plan - Discharge Summary New Discharge Prescriptions: Aspirin 325 mg PO DAILY #30 tab HYDROcodone/APAP 7.5-325MG [Superior 7.5-325] 1 - 2 tab PO Q4-6H PRN #90 tab PRN Reason: Pain Sennosides-Docusate Sodium [Senokot-S] 2 tab PO DAILY #30 tablet Warfarin [Coumadin] 2.5 mg PO DIRECTED #7 tab Discharge Medication List Acetaminophen-Codeine 300-30mg [Tylenol #3] 1 tab PO Q4H PRN 11/26/16 [History] Aspirin 325 mg PO DAILY 11/26/16 [History] HYDROcodone/APAP 7.5-325MG [Superior 7.5-325] 1 tab PO Q6HR PRN 11/26/16 [History] Hydrochlorothiazide [Hydrodiuril] 25 mg PO BID 11/26/16 [History] Insulin Glargine,Hum.rec.anlog [Basaglar Kwikpen U-100] 25 unit SQ HS 11/26/16 [ History] Lisinopril [Zestril] 2.5 mg PO DAILY 11/26/16 [History] Loratadine [Claritin] 10 mg PO DAILY PRN 11/26/16 [History] Elida-3 Fatty Acids/Fish Oil [Fish Oil 1,000 mg Softgel] 1 cap PO BID 11/26/16 [ History] Simvastatin [Zocor] 40 mg PO HS 11/26/16 [History] Tamsulosin [Flomax] 0.4 mg PO BID 11/26/16 [History] glyBURIDE/METFORMIN HCL [Glucovance 5-500 mg Tablet] 2 tab PO BID 11/26/16 [ History] Aspirin 325 mg PO DAILY #30 tab 11/29/16 [Rx] HYDROcodone/APAP 7.5-325MG [Superior 7.5-325] 1 - 2 tab PO Q4-6H PRN #90 tab [Rx] Sennosides-Docusate Sodium [Senokot-S] 2 tab PO DAILY #30 tablet 11/29/16 [Rx] Warfarin [Coumadin] 2.5 mg PO DIRECTED #7 tab 11/29/16 [Rx] Follow up Appointment(s)/Referral(s): Otilio Contreras DO [Doctor of Osteopathic Medicine] - 3 Weeks (3-4 weeks) Activity/Diet/Wound Care/Special Instructions: Non-weightbearing right leg Keep immobilizer in place Daily dressing changes Keep incision clean and dry Remove po in 2 weeks post op Follow up with Dr. Contreras in 3-4 weeks. Call [facility] with any questions or concerns, . Discharge Disposition: TRANSFER TO SNF/F
[2016-11-30] MEDS: VANCOMYCIN 1,500 MG in SODIUM CHLORIDE 0.9% 250 ML IVPB SCH (11:42)
[2016-11-30 12:13] LABS: Glucose,Whole Blood 72 mg/dL (75-99)
--- NOTE | 2016-11-30 15:20 | P.PN ---
Subjective Principal diagnosis: Infection right total knee arthroplasty This is an 81-year-old male. He has a significant history of a right total knee arthroplasty done in 2008 followed by a left done in 2009. Regarding his right knee, patient states it is always been painful and he's had decreased range of motion and requires continued use of walker. He states it is never been right from the beginning. He states he has been feeling warm his has applied ice packs to his knee which has helped. He apparently has had fever and chills at home. He has been following with orthopedics and underwent an aspiration done on November 19 that showed normal skin renetta. Fluid was cloudy, RBCs 800, nucleated cells 35,200, Chiara nuclear WBCs 99, mononuclear 1. No crystals were seen. He underwent a bone scan on November 21 that showed infection in the right knee. Patient is now admitted to the surgical unit and planned for removal of right knee hardware and antibiotic spacer placement today. Since arrival, patient has been afebrile, white count is 9.2. BUN 29 creatinine 1.3. Urinalysis was clear with nitrate and leukoesterase negative. CRP was 133. Albumin 3.4. Patient does state that he has had decreased oral intake as he is trying to lose weight over the past 3 weeks. He noted that his blood sugar last week was in the 300s and normally runs 150. Hemoglobin A1c is 10.7. He has significant pain to the right knee with decreased range of motion. Patient is feeling better today. Pain levels down to a 3. The best it's been quite some time. Denies fevers chills or rigors. No new acute complaints. Objective - Vital Signs Vital signs: Vital Signs Temp 98.4 F 11/30/16 08:31 Pulse 81 11/30/16 08:31 Resp 16 11/30/16 08:31 BP 123/59 11/30/16 08:31 Pulse Ox 96 11/30/16 08:31 Intake & Output 11/29/16 11/30/16 11/30/16 18:59 06:59 18:59 Intake Total 500 480 Output Total 835 Balance -335 480 Weight 117.889 kg Intake: IV 500 Sodium Chloride 0.9% 1, 500 000 ml @ 100 mls/hr IV . Q10H [facility] Rx#:[id number] Oral 480 Output: Urine 835 Uretheral (Wheeler) 835 Other: Voiding Method Indwelling Catheter Indwelling Catheter # Voids 2 1 # Bowel Movements 1 - Exam Gen: This is an 81-year-old male. He is sitting up in a chair at the bedside and appears to be in no acute distress. HEENT: Head is atraumatic, normocephalic. Pupils equal, round. Sclerae is anicteric. NECK: Supple. No JVD. No lymphadenopathy. No thyromegaly. LUNGS: Diminished bilaterally. Clear to auscultation. No wheezes or rhonchi. No intercostal retractions. HEART: Regular rate and rhythm. Systolic murmur. ABDOMEN: Soft. Bowel sounds are present. No masses. No tenderness. EXTREMITIES: Trace pedal edema on the right. No calf tenderness. Significant tenderness to the right knee, decreased range of motion. Dorsalis pedis +2 bilaterally no purulent drainage from the knee is noted NEUROLOGICAL: Patient is awake, alert and oriented x3 - Labs CBC & Chem 7: 11/30/16 08:20 11/29/16 08:19 Labs: Abnormal Lab Results - Last 24 Hours (Table) 11/29/16 11/29/16 11/30/16 Range/Units 17:07 21:13 08:20 RBC 3.22 L (4.30-5.90) m/uL Hgb 9.9 L (13.0-17.5) gm/dL Hct 31.3 L (39.0-53.0) % PT (9.0-12.0) sec POC Glucose (mg/dL) 106 H 142 H (75-99) mg/dL 11/30/16 11/30/16 Range/Units 08:20 12:11 RBC (4.30-5.90) m/uL Hgb (13.0-17.5) gm/dL Hct (39.0-53.0) % PT 19.5 H (9.0-12.0) sec POC Glucose (mg/dL) 72 L (75-99) mg/dL Microbiology - Last 24 Hours (Table) 11/27/16 15:10 Anaerobic Culture - Preliminary Knee - Right 11/26/16 15:50 Blood Culture - Preliminary Blood No Growth after 72 hours 11/26/16 15:59 Blood Culture - Preliminary Blood No Growth after 72 hours Laboratory Results WBC 7.2 k/uL (3.8-10.6) 11/30/16 08:20 RBC 3.22 m/uL (4.30-5.90) L 11/30/16 08:20 Hgb 9.9 gm/dL (13.0-17.5) L 11/30/16 08:20 Hct 31.3 % (39.0-53.0) L 11/30/16 08:20 MCV 97.4 fL (80.0-100.0) 11/30/16 08:20 MCH 30.8 pg (25.0-35.0) 11/30/16 08:20 MCHC 31.6 g/dL (31.0-37.0) 11/30/16 08:20 RDW 12.3 % (11.5-15.5) 11/30/16 08:20 Plt Count 335 k/uL (150-450) 11/30/16 08:20 Neutrophils % 67 % 11/30/16 08:20 Lymphocytes % 23 % 11/30/16 08:20 Monocytes % 6 % 11/30/16 08:20 Eosinophils % 1 % 11/30/16 08:20 Basophils % 1 % 11/30/16 08:20 Neutrophils # 4.8 k/uL (1.3-7.7) 11/30/16 08:20 Lymphocytes # 1.6 k/uL (1.0-4.8) 11/30/16 08:20 Monocytes # 0.5 k/uL (0-1.0) 11/30/16 08:20 Eosinophils # 0.1 k/uL (0-0.7) 11/30/16 08:20 Basophils # 0.0 k/uL (0-0.2) 11/30/16 08:20 ESR 106 mm/hr (0-15) H 11/26/16 18:46 PT 19.5 sec (9.0-12.0) H 11/30/16 08:20 INR 2.0 (<1.1) 11/30/16 08:20 APTT 26.8 sec (22.0-30.0) 11/26/16 15:50 Sodium 135 mmol/L (137-145) L 11/29/16 08:19 Potassium 4.3 mmol/L (3.5-5.1) 11/29/16 08:19 Chloride 101 mmol/L (98-107) 11/29/16 08:19 Carbon Dioxide 25 mmol/L (22-30) 11/29/16 08:19 Anion Gap 9 mmol/L 11/29/16 08:19 BUN 19 mg/dL (9-20) 11/29/16 08:19 Creatinine 1.09 mg/dL (0.66-1.25) 11/29/16 08:19 Est GFR (MDRD) Af Amer >60 (>60 ml/min/1.73 sqM) 11/29/16 08:19 Est GFR (MDRD) Non-Af >60 (>60 ml/min/1.73 sqM) 11/29/16 08:19 Glucose 134 mg/dL (74-99) H 11/29/16 08:19 POC Glucose (mg/dL) 72 mg/dL (75-99) L 11/30/16 12:11 POC Glu Barrel Bander ID Rachel Flores 11/30/16 12:[address] Glu mg/dL 260 mg/dL 11/26/16 18:46 Hemoglobin A1c 10.7 % (4.2-6.1) H 11/26/16 18:46 Calcium 8.1 mg/dL (8.4-10.2) L 11/29/16 08:19 Magnesium 1.8 mg/dL (1.6-2.3) 11/27/16 08:24 Total Bilirubin 0.8 mg/dL (0.2-1.3) 11/27/16 08:24 AST 23 U/L (17-59) 11/27/16 08:24 ALT 16 U/L (21-72) L 11/27/16 08:24 Alkaline Phosphatase 56 U/L (38-126) 11/27/16 08:24 C-Reactive Protein 133.3 mg/L (<10.0) H 11/26/16 15:50 Total Protein 7.2 g/dL (6.3-8.2) 11/27/16 08:24 Albumin 3.6 g/dL (3.5-5.0) 11/27/16 08:24 Urine Color Yellow 11/27/16 06:13 Urine Appearance Clear (Clear) 11/27/16 06:13 Urine pH 5.0 (5.0-8.0) 11/27/16 06:13 Ur Specific [place] 1.021 (1.001-1.035) 11/27/16 06:13 Urine Protein Negative (Negative) 11/27/16 06:13 Urine Glucose (UA) Negative (Negative) 11/27/16 06:13 Urine Ketones Trace (Negative) H 11/27/16 06:13 Urine Blood Trace (Negative) H 11/27/16 06:13 Urine Nitrite Negative (Negative) 11/27/16 06:13 Urine Bilirubin Negative (Negative) 11/27/16 06:13 Urine Urobilinogen <2.0 mg/dL (<2.0) 11/27/16 06:13 Ur Leukocyte Esterase Negative (Negative) 11/27/16 06:13 Urine RBC 10 /hpf (0-5) H 11/27/16 06:13 Urine WBC 2 /hpf (0-5) 11/27/16 06:13 Ur Squamous Epith Cells 1 /hpf (0-4) 11/27/16 06:13 Hyaline Casts 1 /lpf (0-2) 11/27/16 06:13 Urine Mucus Rare /hpf (None) H 11/27/16 06:13 Vancomycin Trough 16.4 ug/mL 11/30/16 08:20 Blood Type A Positive 11/26/16 15:59 Blood Type Recheck A Pos 11/26/16 15:59 Antibody Screen NEGATIVE 11/26/16 15:59 Spec Expiration Date 11/29/2016 - 1083 11/26/16 15:59 Microbiology 11/27/16 15:10 Knee - Right Anaerobic Culture - Preliminary 11/26/16 15:50 Blood Blood Culture - Preliminary No Growth after 72 hours 11/26/16 15:59 Blood Blood Culture - Preliminary No Growth after 72 hours 11/27/16 15:10 Knee - Right Gram Stain - Preliminary 11/27/16 15:10 Knee - Right Wound Culture - Preliminary Assessment and Plan (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 He started to have pain and discomfort. Also is taking the operating room there is evidence of infection at this site. The total knee arthroplasty was extracted and a antibiotic spacer was placed. PICC line is been placed for his six-week course of intravenous antibiotic therapy. Vancomycin has chosen given the negative culture so far the high likelihood of a gram-positive infection such as coagulase-negative staph. Pain control is improved. He's been able to get up to the commode with assistance. He was having some acute renal failure that is now resolved. No other acute new findings at this time. Arrangements for his antibiotic therapy at extended care have been verified today. Orders are reviewed with the nurse. To extended care today. Status: Acute
== END 2016-11-30 13:40 | DRG 464 ==
LOC: 5MS5E 15:22
PROVIDERS: ADMIT Orthopaedic Surgery; ATTEND Orthopaedic Surgery
PROC: 0SHC08Z Insertion of Spacer into Right Knee Joint, Open Approach (ICD-10-PCS; 2016-11-27)
PROC: 0SPC0JZ Removal of Synthetic Substitute from Right Knee Joint, Open Approach (ICD-10-PCS; principal; 2016-11-27 14:00)
PROC: 02HV33Z Insertion of Infusion Device into Superior Vena Cava, Percutaneous Approach (ICD-10-PCS; 2016-11-28 13:30)
DX: T84.53XA Infection and inflammatory reaction due to internal right knee prosthesis, initial encounter (principal); N17.9 Acute kidney failure, unspecified; E66.2 Morbid (severe) obesity with alveolar hypoventilation; E87.5 Hyperkalemia; I11.9 Hypertensive heart disease without heart failure; E11.9 Type 2 diabetes mellitus without complications; E78.5 Hyperlipidemia, unspecified; F32.9 Major depressive disorder, single episode, unspecified; K21.9 Gastro-esophageal reflux disease without esophagitis; N40.0 Benign prostatic hyperplasia without lower urinary tract symptoms; I83.90 Asymptomatic varicose veins of unspecified lower extremity; K57.90 Diverticulosis of intestine, part unspecified, without perforation or abscess without bleeding; R01.1 Cardiac murmur, unspecified; M19.90 Unspecified osteoarthritis, unspecified site; K64.9 Unspecified hemorrhoids; Z79.82 Long term (current) use of aspirin; Z79.899 Other long term (current) drug therapy; Z79.4 Long term (current) use of insulin; Z96.653 Presence of artificial knee joint, bilateral; Z82.49 Family history of ischemic heart disease and other diseases of the circulatory system; Y83.1 Surgical operation with implant of artificial internal device as the cause of abnormal reaction of the patient, or of later complication, without mention of misadventure at the time of the procedure
CPT/HCPCS: 36569; 76937; 77001; 80048; 80053; 80202; 81001; 83036; 83735; 85025; 85027; 85610; 85652; 85730; 86140; 86850; 86900; 86901; 87040; 87070; 87075; 87077; 87186; 87205; 88305; 88331; 93005

== ENCOUNTER → 2017-04-01 | Outpatient (CLI) | payer MEDICARE, OTHER ==
--- NOTE | 2017-04-01 13:06 | US ---
EXAMINATION TYPE: US venous doppler duplex LE RT DATE OF EXAM: 04/01/2017 12:50 PM COMPARISON: NONE CLINICAL HISTORY: RLE DVT I82.401. Pain/edema right leg. right knee surgery 11/27. History of DVT 9 ye ars ago SIDE PERFORMED: Right TECHNIQUE: The lower extremity deep venous system is examined utilizing real time linear array sonog maribel with graded compression, doppler sonography and color-flow sonography. VESSELS IMAGED: External Iliac Vein (EIV) Common Femoral Vein Deep Femoral Vein Greater Saphenous Vein * Femoral Vein Popliteal Vein Small Saphenous Vein * Proximal Calf Veins (* superficial vessels) Right Leg: +Positive for DVT right femoral vein mid extending into popliteal vein upper. Incomplete compressions noted at these levels. *Technical limitations due to patient's body habitus IMPRESSION: Findings positive for DVT.
== END | disposition home or self-care (01) ==
LOC: RADUSWWP 12:16
PROVIDERS: ATTEND Internal Medicine Geriatric Medicine
DX: I82.411 Acute embolism and thrombosis of right femoral vein (principal); I82.431 Acute embolism and thrombosis of right popliteal vein

== ENCOUNTER → 2017-04-03 | Outpatient (CLI) | payer MEDICARE, OTHER ==
[2017-04-03 08:22] LABS: CH 31.4; CHCM 32.7; HCT 36.4 % (39.0-53.0); HDW 2.39; HGB 11.9 gm/dL (13.0-17.5); MCH 31.5 pg (25.0-35.0); MCHC 32.6 g/dL (31.0-37.0); MCV 96.6 fL (80.0-100.0); Mean Platelet Volume 7.8; RBC 3.77 m/uL (4.30-5.90); RDW 14.6 % (11.5-15.5); WBC 7.3 k/uL (3.8-10.6)
[2017-04-03 11:54] LABS: Erythrocyte Sedimentation Rate 36 mm/hr (0-15)
== END | disposition home or self-care (01) ==
LOC: RADNMMAIN 06:45
PROVIDERS: ATTEND Orthopaedic Surgery
DX: Z48.89 Encounter for other specified surgical aftercare (principal); M25.561 Pain in right knee; E11.9 Type 2 diabetes mellitus without complications; Z98.890 Other specified postprocedural states
CPT/HCPCS: 85027; 85652

== ENCOUNTER → 2017-04-08 | Outpatient (CLI) | payer MEDICARE, OTHER ==
--- NOTE | 2017-04-09 12:39 | NM ---
EXAMINATION TYPE: NM WBC whole body DATE OF EXAM: 04/09/2017 COMPARISON: Right knee x-ray November 28, 2016. HISTORY: Right knee pain, type 2 diabetes, status post removal of metallic hardware and infusion of a ntibiotics and spacer on November 27, 2016 per order. Persistent pain since surgery in November per patient. TECHNIQUE: Following administration of 18.9 mCi Tc99m Ceretec. Images obtained 4 hour(s) and 23 rich r(s) post injection. Imaging is obtained of the whole body in the bilateral knees. FINDINGS: Normal physiological tracer activity is noted in the liver and spleen and in the bone marrow of the a xial and appendicular skeleton. There is mild nonspecific increase uptake in at level of the right kn ee joint versus opposite left knee joint. Uptake is fairly diffuse but slightly more prominent in the distal femur near antibiotic spacer. Lucency from metallic hardware left knee prosthesis is incident ally noted. IMPRESSION: As above, cannot exclude possible persistent infection at this level.
== END | disposition home or self-care (01) ==
LOC: RADNMMAIN 06:38
PROVIDERS: ATTEND Orthopaedic Surgery
DX: M25.561 Pain in right knee (principal); E11.9 Type 2 diabetes mellitus without complications; Z96.651 Presence of right artificial knee joint
CPT/HCPCS: 78806; A9521

== ENCOUNTER → 2017-07-28 | Outpatient (CLI) | payer MEDICARE, OTHER ==
--- NOTE | 2017-07-28 13:46 | US ---
EXAMINATION TYPE: US venous doppler duplex LE RT DATE OF EXAM: 07/28/2017 1:06 PM COMPARISON: CLINICAL HISTORY: DVT R leg I82.401. Known right DVT. On blood thinners. Follow up. Hx of right kn ee surgery. SIDE PERFORMED: Right TECHNIQUE: The lower extremity deep venous system is examined utilizing real time linear array sonog amribel with graded compression, doppler sonography and color-flow sonography. VESSELS IMAGED: External Iliac Vein (EIV) Common Femoral Vein Deep Femoral Vein Greater Saphenous Vein * Femoral Vein Popliteal Vein Small Saphenous Vein * Proximal Calf Veins (* superficial vessels) Limited visualization due to patient body habitus Right Leg: Appears positive for DVT from Mid CFV to distal CFV. Nonoccluding, vascular flow seen. Unable to compress completely. IMPRESSION: Right lower extremity DVT as noted above.
== END | disposition home or self-care (01) ==
LOC: RADUSWWP 12:19
PROVIDERS: ATTEND Internal Medicine Geriatric Medicine
DX: I82.401 Acute embolism and thrombosis of unspecified deep veins of right lower extremity (principal)

== ENCOUNTER 2017-08-20 18:51 | Emergency (ER) | payer MEDICARE ==
[2017-08-20 18:55] VITALS: TEMP 98.1
[2017-08-20] MEDS ORDERED: RX INFO: IV CONTRAST WAS GIVEN 1 EACH MISC MISCELLANE PRN (19:06)
[2017-08-20] MEDS ORDERED: SODIUM CHLORIDE 0.9% 1,000 ML IV STA (19:06)
[2017-08-20 19:30] LABS: Basophils # (A) 0.1 k/uL (0-0.2); Basophils % (A) 1 %; Eosinophils # (A) 0.2 k/uL (0-0.7); Eosinophils % (A) 2 %; HCT 40.9 % (39.0-53.0); HGB 13.1 gm/dL (13.0-17.5); Lymphocytes # (A) 2.7 k/uL (1.0-4.8); Lymphocytes % (A) 30 %; Mean Platelet Volume 6.5; Monocytes # (A) 0.4 k/uL (0-1.0); Monocytes % (A) 5 %; Neutrophils # (A) 5.4 k/uL (1.3-7.7); Neutrophils % (A) 60 %; Platelet Count 217 k/uL (150-450); RBC 4.21 m/uL (4.30-5.90); RDW 12.9 % (11.5-15.5); WBC 9.1 k/uL (3.8-10.6)
[2017-08-20 19:39] LABS: INR 1.2 (<1.2); Prothrombin Time 11.2 sec (9.0-12.0)
[2017-08-20 19:45] LABS: ALT 27 U/L (21-72); AST 17 U/L (17-59); Alkaline Phosphatase 57 U/L (38-126); Amylase 54 U/L (30-110); Anion Gap 11 mmol/L; Blood Urea Nitrogen 21 mg/dL (9-20); Calcium 9.5 mg/dL (8.4-10.2); Carbon Dioxide 25 mmol/L (22-30); Chloride 100 mmol/L (98-107); Glucose 169 mg/dL (74-99); Lipase 38 U/L (23-300); Partial Thromboplastin Time 21.9 sec (22.0-30.0); Potassium 4.9 mmol/L (3.5-5.1); Sodium 136 mmol/L (137-145); Total Bilirubin 0.3 mg/dL (0.2-1.3); Total Protein 6.7 g/dL (6.3-8.2)
[2017-08-20] MEDS ORDERED: HYDROmorphone 4 MG/ML 1 ML SYRINGE IVP STA (19:51)
--- NOTE | 2017-08-20 20:14 | ED ---
Abdominal Pain HPI - General Chief Complaint: Abdominal Pain Stated Complaint: Fall Time Seen by Provider: 08/20/17 18:58 Source: patient, EMS Mode of arrival: EMS Limitations: no limitations - History of Present Illness Initial Comments: This 82-year-old white male presents with a complaint of a fall while in his wheelchair while on a bus today. This occurred at approximately 12:30 PM. He states that his wheelchair flipped back while he was in it. He did hit his head but did not have any loss of consciousness but felt dazed afterwards. There is no nausea or vomiting. His main complaint is that of having some anterior abdominal pain. This is primarily in the mid upper abdomen. He does have some distention with obvious ventral hernia. He does states that he has a history of a ventral hernia and has been evaluated by surgery in the past and they stated that this is not to be repaired as he is hydrated for additional surgeries. He also relates that he is on Xarelto blood thinner. He denies any fevers, chills, diarrhea, constipation. He states that the pain is fairly severe overall. He does also complain of some moderate low back pain. He does relate that he is currently under the care of an orthopedic surgeon in regard to his right knee. He had she saw the orthopedic surgeon after his injury today. He states that he is being scheduled for a right knee replacement. He currently is nonambulatory due to his right knee. He apparently just transfers from his wheelchair to his chair or his wheelchair to the bed. No other complaints or modifying factors. - Related Data Home Medications Medication Instructions Recorded Confirmed Aspirin 325 mg PO DAILY 11/26/16 08/20/17 HYDROcodone/APAP 7.5-325MG [Ambrose 1 tab PO Q4H PRN 11/26/16 08/20/17 7.5-325] Hydrochlorothiazide [Hydrodiuril] 25 mg PO BID 11/26/16 08/20/17 Lisinopril [Zestril] 2.5 mg PO DAILY 11/26/16 08/20/17 Loratadine [Claritin] 10 mg PO DAILY PRN 11/26/16 08/20/17 Simvastatin [Zocor] 40 mg PO HS 11/26/16 08/20/17 Tamsulosin [Flomax] 0.4 mg PO DAILY 11/26/16 08/20/17 glyBURIDE/METFORMIN HCL 1 tab PO QID 11/26/16 08/20/17 [Glucovance 5-500 mg Tablet] Multivitamins, Thera [Multivitamin 1 tab PO DAILY 08/20/17 08/20/17 (formulary)] Rivaroxaban [Xarelto] 15 mg PO BID 08/20/17 08/20/17 Sennosides-Docusate Sodium 2 tab PO DAILY PRN 08/20/17 08/20/17 [Senokot-S] Previous Rx's Medication Instructions Recorded Ciprofloxacin HCl [Cipro] 500 mg PO Q12HR #14 tablet 08/20/17 Hydrocodone/Acetaminophen [Ambrose 1 - 2 each PO Q4HR PRN #20 tab 08/20/17 5-325] Allergies Allergy/AdvReac Type Severity Reaction Status Date / Time No Known Allergies Allergy Verified 08/20/17 19:14 Review of Systems ROS Statement: Those systems with pertinent positive or pertinent negative responses have been documented in the HPI. ROS Other: All systems not noted in ROS Statement are negative. Past Medical History Past Medical History: Diabetes Mellitus, GERD/Reflux, Hyperlipidemia, Hypertension, Osteoarthritis (OA), Prostate Disorder, Sleep Apnea/CPAP/BIPAP Additional Past Medical History / Comment(s): diverticulosis, hemmorhoids, constopation, varicose veins, ulcers History of Any Multi-Drug Resistant Organisms: None Reported Additional Past Surgical History / Comment(s): rt knee arthroscopy, tressa total knee replacments, egd/colonoscopy, tressa cataracts-lens implants, rt ing hernia, umb hernia,ventral hernia, exp lap -repair of perforated ulcer Past Anesthesia/Blood Transfusion Reactions: No Reported Reaction Past Psychological History: Depression Smoking Status: Never smoker Past Alcohol Use History: Rare Past Drug Use History: None Reported - Past Family History Mother Family Medical History: Diabetes Mellitus Additional Family Medical History / Comment(s): Mother at age 83 from complications from diabetes. Father Family Medical History: Coronary Artery Disease (CAD) Additional Family Medical History / Comment(s): Father at age 93 and only history was pacemaker implantation at age 93. Brother(s) History Unknown: Yes Additional Family Medical History / Comment(s): Patient was 1 brother that at age 77 with history of Alzheimer's disease and Parkinson's. Sister(s) Additional Family Medical History / Comment(s): Patient had 5 sisters. One sister from breast cancer. Second sister from an unknown cancer. Other 3 sisters are alive and doing well. Son(s) Additional Family Medical History / Comment(s): Patient has 2 sons and 5 daughters. One daughter from breast cancer at age 27. Other children have no major medical problems. General Exam - General Exam Comments Initial Comments: GENERAL: The patient is well nourished and well hydrated. VITAL SIGNS: Heart rate, blood pressure, respiratory rate reviewed as recorded in nurse's notes. EYES: Pupils are round and reactive. Extraocular movements are intact. No conjunctival / lid redness or swelling. ENT: No external evidence of injury, swelling, or ecchymosis other than a very slight abrasion noted to the superior occiput. Airway is patent. Throat is clear. NECK: Nontender. No swelling or evidence of injury. No subcutaneous emphysema. Trachea is midline. No thyroid mass. HEART: Regular rate and rhythm. Good peripheral pulses. LUNGS/CHEST: Breath sounds clear and equal bilaterally. No rales, rhonchi, or wheezes. No ecchymosis, subcutaneous emphysema, or tenderness. ABDOMEN: There is mild tenderness noted primarily in the midline into the right side of the mid to upper abdomen with obvious ventral hernia noted. There is midline surgical scars noted. No palpable masses or organomegaly. No peritoneal signs. No abdominal wall swelling or ecchymosis. Patient is morbidly obese. EXTREMITIES: No extremity tenderness. Normal muscle tone and function. There is mild tenderness noted into the perilumbar musculature. There is moderate swelling to his right knee diffusely but this is nontender. NEUROLOGIC: Sensation is grossly intact. Cranial nerve exam reveals face is symmetrical, tongue is midline, speech is clear. SKIN: No abrasions or ecchymosis is noted. No induration or masses noted. PSYCHIATRIC: Alert and oriented. Appropriate behavior and judgment. Limitations: no limitations Course Vital Signs 08/20/17 08/20/17 18:52 21:19 Temperature 98.1 F Pulse Rate 100 97 Respiratory 20 18 Rate Blood Pressure 134/72 131/64 O2 Sat by Pulse 98 94 L Oximetry Medical Decision Making - Medical Decision Making The patient was seen and examined. All diagnostics are reviewed. An IV is started and he does receive some Dilaudid intravenously. The laboratories reviewed and does show a minimal elevation of his blood sugar but otherwise labs are essentially within normal limits. An EKG was done which shows a normal sinus rhythm at a rate of 94. There is no acute ST-T wave changes identified. The OR intervals 166, the QRS duration is 90, and the QTC intervals 432. The laboratory overall is unremarkable. The urinalysis does show a slight urinary tract infection. He is given a gram of Rocephin in this regard. The computed tomography scan of the brain is negative. The computed tomography scan of the abdomen and pelvis does not show any acute significant abnormalities per radiologist. Upon my review, the ventral hernia is slightly present. Is felt as though most of his pain is directly over his ventral hernia. It is felt as though he may have potentially caused this to increased to a certain degree and it is having pain related to worsening ventral hernia. It is easily reducible. The case is discussed with Dr. Larkin and it does not appear as though the patient meets any criteria for admission at this time and we feel as though he is stable for discharge home. Due to his mobility problems , he will need to go back via EMS. Family and patient are agreeable and he'll be placed on pain medications and an antibiotic for the urinary tract infection. Return parameters are discussed. - Lab Data Result diagrams: 08/20/17 19:24 08/20/17 19:24 Lab Results 08/20/17 08/20/17 08/20/17 Range/Units 19:24 19:24 19:24 WBC 9.1 (3.8-10.6) k/uL RBC 4.21 L (4.30-5.90) m/uL Hgb 13.1 (13.0-17.5) gm/dL Hct 40.9 (39.0-53.0) % MCV 97.0 (80.0-100.0) fL MCH 31.0 (25.0-35.0) pg MCHC 32.0 (31.0-37.0) g/dL RDW 12.9 (11.5-15.5) % Plt Count 217 (150-450) k/uL Neutrophils % 60 % Lymphocytes % 30 % Monocytes % 5 % Eosinophils % 2 % Basophils % 1 % Neutrophils # 5.4 (1.3-7.7) k/uL Lymphocytes # 2.7 (1.0-4.8) k/uL Monocytes # 0.4 (0-1.0) k/uL Eosinophils # 0.2 (0-0.7) k/uL Basophils # 0.1 (0-0.2) k/uL PT 11.2 (9.0-12.0) sec INR 1.2 H (<1.2) APTT 21.9 L (22.0-30.0) sec Sodium 136 L (137-145) mmol/L Potassium 4.9 (3.5-5.1) mmol/L Chloride 100 (98-107) mmol/L Carbon Dioxide 25 (22-30) mmol/L Anion Gap 11 mmol/L BUN 21 H (9-20) mg/dL Creatinine 1.25 (0.66-1.25) mg/dL Est GFR (MDRD) Af Amer >60 (>60 ml/min/1.73 sqM) Est GFR (MDRD) Non-Af 55 (>60 ml/min/1.73 sqM) Glucose 169 H (74-99) mg/dL Calcium 9.5 (8.4-10.2) mg/dL Total Bilirubin 0.3 (0.2-1.3) mg/dL AST 17 (17-59) U/L ALT 27 (21-72) U/L Alkaline Phosphatase 57 (38-126) U/L Total Protein 6.7 (6.3-8.2) g/dL Albumin 4.0 (3.5-5.0) g/dL Amylase 54 (30-110) U/L Lipase 38 (23-300) U/L Urine Color Urine Appearance (Clear) Urine pH (5.0-8.0) Ur Specific [place] (1.001-1.035) Urine Protein (Negative) Urine Glucose (UA) (Negative) Urine Ketones (Negative) Urine Blood (Negative) Urine Nitrite (Negative) Urine Bilirubin (Negative) Urine Urobilinogen (<2.0) mg/dL Ur Leukocyte Esterase (Negative) Urine RBC (0-5) /hpf Urine WBC (0-5) /hpf Ur Squamous Epith Cells (0-4) /hpf Urine Bacteria (None) /hpf Hyaline Casts (0-2) /lpf Urine Mucus (None) /hpf Urine Yeast (Budding) (None) /hpf 08/20/17 Range/Units 19:55 WBC (3.8-10.6) k/uL RBC (4.30-5.90) m/uL Hgb (13.0-17.5) gm/dL Hct (39.0-53.0) % MCV (80.0-100.0) fL MCH (25.0-35.0) pg MCHC (31.0-37.0) g/dL RDW (11.5-15.5) % Plt Count (150-450) k/uL Neutrophils % % Lymphocytes % % Monocytes % % Eosinophils % % Basophils % % Neutrophils # (1.3-7.7) k/uL Lymphocytes # (1.0-4.8) k/uL Monocytes # (0-1.0) k/uL Eosinophils # (0-0.7) k/uL Basophils # (0-0.2) k/uL PT (9.0-12.0) sec INR (<1.2) APTT (22.0-30.0) sec Sodium (137-145) mmol/L Potassium (3.5-5.1) mmol/L Chloride (98-107) mmol/L Carbon Dioxide (22-30) mmol/L Anion Gap mmol/L BUN (9-20) mg/dL Creatinine (0.66-1.25) mg/dL Est GFR (MDRD) Af Amer (>60 ml/min/1.73 sqM) Est GFR (MDRD) Non-Af (>60 ml/min/1.73 sqM) Glucose (74-99) mg/dL Calcium (8.4-10.2) mg/dL Total Bilirubin (0.2-1.3) mg/dL AST (17-59) U/L ALT (21-72) U/L Alkaline Phosphatase (38-126) U/L Total Protein (6.3-8.2) g/dL Albumin (3.5-5.0) g/dL Amylase (30-110) U/L Lipase (23-300) U/L Urine Color Yellow Urine Appearance Clear (Clear) Urine pH 6.0 (5.0-8.0) Ur Specific [place] 1.016 (1.001-1.035) Urine Protein Trace H (Negative) Urine Glucose (UA) 1+ H (Negative) Urine Ketones Negative (Negative) Urine Blood Negative (Negative) Urine Nitrite Negative (Negative) Urine Bilirubin Negative (Negative) Urine Urobilinogen 2.0 (<2.0) mg/dL Ur Leukocyte Esterase Large H (Negative) Urine RBC 4 (0-5) /hpf Urine WBC 32 H (0-5) /hpf Ur Squamous Epith Cells 1 (0-4) /hpf Urine Bacteria Occasional H (None) /hpf Hyaline Casts 4 H (0-2) /lpf Urine Mucus Rare H (None) /hpf Urine Yeast (Budding) Occasional H (None) /hpf Disposition Clinical Impression: Head injury, Abdominal pain, Ventral hernia, UTI (urinary tract infection) Disposition: HOME SELF-CARE Condition: Fair Instructions: Ventral Hernia (ED), Urinary Tract Infection in Men (ED), Head Injury (ED) Prescriptions: Ciprofloxacin HCl [Cipro] 500 mg PO Q12HR #14 tablet Hydrocodone/Acetaminophen [Ambrose 5-325] 1 - 2 each PO Q4HR PRN #20 tab PRN Reason: Pain Referrals: Leonard Larkin MD [Primary Care Provider] - 1-2 days Time of Disposition: 21:24
[2017-08-20 20:26] LABS: Appearance,Urine Clear (Clear); Bacteria,Urine Occasional /hpf; Bilirubin,Urine Negative (Negative); Blood,Urine Negative (Negative); Budding Yeast,Urine Occasional /hpf; Color,Urine Yellow; Glucose,Urine (UA) 1+ (Negative); Hyaline Casts,Urine 4 /lpf (0-2); Ketones,Urine Negative (Negative); Leukocyte Esterase,Urine Large (Negative); Mucus,Urine Rare /hpf; Nitrite,Urine Negative (Negative); Protein,Urine Trace (Negative); RBC,Urine 4 /hpf (0-5); Specific Gravity,Urine 1.016 (1.001-1.035); Squamous Epithelial Cell,Urine 1 /hpf (0-4); WBC,Urine 32 /hpf (0-5)
[2017-08-20] MEDS ORDERED: cefTRIAXone IN SWFI 1,000 MG/10 ML SYRINGE IVP STA (20:33)
--- NOTE | 2017-08-20 20:33 | CT ---
EXAMINATION TYPE: CT abdomen pelvis w con DATE OF EXAM: 08/20/2017 COMPARISON: NONE HISTORY: Epigastric pain today after patient flipped backward while in wheelchair. CT DLP: 2929.8 mGycm CONTRAST: CT scan of the abdomen and pelvis is performed without Oral Contrast and with IV Contrast, patient in jected with 80 mL of Visipaque 320. FINDINGS: LUNG BASES-: No visible nodule. No infiltrate. LIVER/GB: No calcified gallstones. No space occupying hepatic lesion. Biliary tree is of normal ca liber. PANCREAS: No inflammation. No distinct mass. SPLEEN: No splenic enlargement. No lesion seen. ADRENALS: No nodule. No thickening. KIDNEYS/BLADDER: Mild renal atrophic changes. No hydronephrosis. No nephrolithiasis. No distinct r enal mass. Urinary bladder grossly unremarkable. BOWEL: Normal appendix. Normal bowel caliber. No inflammation. GENITAL ORGANS: No gross abnormality. LYMPH NODES: No greater than 1cm abdominal or pelvic lymph nodes are appreciated. AORTA: No significant abnormality. OSSEOUS STRUCTURES: Severe degenerative change lower lumbar spine. Grade 1 anterolisthesis L4 and L5. OTHER: No significant additional abnormality is seen. IMPRESSION: 1. No acute process seen.
--- NOTE | 2017-08-20 20:34 | CT ---
EXAMINATION TYPE: CT brain wo con DATE OF EXAM: 08/20/2017 COMPARISON: NONE HISTORY: Patient flipped backwards while in wheelchair. Abrasions to back of head. CT DLP: 1038.[address] of the brain was performed. The ventricles, basal cisterns and sulci overlying the cerebral convexities demonstrate moderate enla rgement. There is no evidence for intracranial hemorrhage or sulcal effacement. There is decreased attenuation about the periventricular white matter and deep white matter of both c erebral hemispheres, compatible with chronic small vessel ischemia. Differential diagnosis does inclu de demyelination. No mass effects are seen.No midline shift. Osseous calvarium is intact. If symptoms persist consider MRI. IMPRESSION: 1. Age related atrophic and chronic small vessel ischemic change without acute intracranial process s een at this time.
[2017-08-20 21:20] VITALS: BP 131/64; PULSE 97; RESP 18
[2017-08-20] MEDS ORDERED: HYDROcodone/APAP 5-325MG 1 EACH TAB PO STA (21:26)
== END 2017-08-20 21:47 | disposition home or self-care (01) ==
LOC: EC 18:51
DX: S09.90XA Unspecified injury of head, initial encounter (principal); K43.9 Ventral hernia without obstruction or gangrene; N39.0 Urinary tract infection, site not specified; M54.5 Low back pain; E11.9 Type 2 diabetes mellitus without complications; K21.9 Gastro-esophageal reflux disease without esophagitis; E78.5 Hyperlipidemia, unspecified; I10 Essential (primary) hypertension; N42.9 Disorder of prostate, unspecified; G47.30 Sleep apnea, unspecified; Z99.89 Dependence on other enabling machines and devices; F32.9 Major depressive disorder, single episode, unspecified; Z79.01 Long term (current) use of anticoagulants; Z79.82 Long term (current) use of aspirin; Z79.84 Long term (current) use of oral hypoglycemic drugs; Z79.899 Other long term (current) drug therapy; W18.00XA Striking against unspecified object with subsequent fall, initial encounter; Y92.811 Bus as the place of occurrence of the external cause
CPT/HCPCS: 36415; 93005; 80053; 82150; 83690; 85025; 85610; 85730; 81001; 70450; 74177; 99285; 96374; 96375; 96361 ×2; Q9967; J0696; J1170

== ENCOUNTER → 2017-09-02 | Outpatient (CLI) | payer MEDICARE ==
[2017-09-02 10:53] LABS: HCT 38.8 % (39.0-53.0); HGB 11.9 gm/dL (13.0-17.5); Hypochromasia Slight; MCH 30.4 pg (25.0-35.0); MCHC 30.7 g/dL (31.0-37.0); Mean Platelet Volume 6.4; Platelet Count 239 k/uL (150-450); RBC 3.92 m/uL (4.30-5.90); RDW 12.9 % (11.5-15.5); WBC 7.7 k/uL (3.8-10.6)
[2017-09-02 11:05] LABS: INR 1.2 (<1.2); Partial Thromboplastin Time 30.2 sec (22.0-30.0); Prothrombin Time 11.8 sec (9.0-12.0)
[2017-09-02 11:07] LABS: Appearance,Urine Clear (Clear); Bilirubin,Urine Negative (Negative); Blood,Urine Negative (Negative); Color,Urine Yellow; Glucose,Urine (UA) Negative (Negative); Ketones,Urine Negative (Negative); Leukocyte Esterase,Urine Negative (Negative); PH, Urine 6.5 (5.0-8.0); Protein,Urine Negative (Negative); Urobilinogen,Urine <2.0 mg/dL (<2.0)
[2017-09-02 11:15] LABS: Albumin 3.9 g/dL (3.5-5.0); Calcium 9.7 mg/dL (8.4-10.2); Potassium 5.4 mmol/L (3.5-5.1); Total Bilirubin 0.4 mg/dL (0.2-1.3); Total Protein 6.6 g/dL (6.3-8.2)
== END | disposition home or self-care (01) ==
LOC: LABPAT 10:01
PROVIDERS: ATTEND Orthopaedic Surgery
DX: Z01.812 Encounter for preprocedural laboratory examination (principal); Z51.81 Encounter for therapeutic drug level monitoring; Z79.01 Long term (current) use of anticoagulants
CPT/HCPCS: 36415; 80053; 81003; 85027; 85610; 85730; 87070

== ENCOUNTER 2017-09-23 11:05 | Inpatient (IN) | payer MEDICARE ==
[~2017-09-23 11:05] MED LIST: ACETAMINOPHEN TAB 500 MG TAB PO ONE; DEXAMETHASONE SOD PHOSPHATE 10 MG/ML 1 ML VIAL IV ONE; LIDOCAINE 1% 20 ML VIAL (10MG/ML) FOR IV START INTRADERMA PRN; MELOXICAM 7.5 MG TAB PO ONE; MIDAZOLAM 2 MG/2 ML VIAL IV PRN; MORPHINE SULFATE 4 MG/ML SYRINGE IV PRN; ONDANSETRON 4 MG/2 ML VIAL IVP ONE; ROPIVACAINE 246.25 MG, EPINEPHrine 0.5 MG, KETOROLAC 30 MG, cloNIDine HCL/PF 80 MCG, WA... MISCELLANE ONE; SCOPOLAMINE 1.5MG/72HR PATCH TRANSDERM ONE; TRANEXAMIC ACID 1,000 MG in SODIUM CHLORIDE 0.9% 50 ML IVPB ONE
[2017-09-23] MEDS: LACTATED RINGERS 1,000 ML IV SCH (11:58)
[2017-09-23 12:01] LABS: Glucose,Whole Blood 173 mg/dL (75-99)
--- NOTE | 2017-09-23 12:26 | P.ONQ ---
Anesthesiology Proc Note - PNB - Peripheral Nerve Block Performed Right Adductor Canal Infusion Time Out Performed: Yes Procedure Start Time: 12:05 Procedure Stop Time: 12:19 Indication: Acute Post-Operative Pain, Requested by physician Sedation Type: Sedate with meaningful contact maintained Preparation: Sterile Prep Position: Supine Catheter: Indwelling Needle Types: oSlange Needle Size: 100mm (4") Needle Gauge: 18 Technique: Ultrasound Injectate: 0.5% Ropivacaine (see comment for volume) (30 mls) Blood Aspirated: No Pain Paresthesia on Injection Noted: No Resistance on Injection: Normal Events: Uneventful and Well Tolerated
[2017-09-23] MEDS ORDERED: ROPIVACAINE 1,100 MG, SODIUM CHLORIDE 0.9% 330 ML MISCELLANE PRN ×2 (12:43)
[2017-09-23] MEDS ORDERED: SODIUM CHLORIDE 0.9% 100 ML BAG ONE (13:31)
[2017-09-23] MEDS ORDERED: TRANEXAMIC ACID 1,000 MG/10 ML VIAL ONE (13:31)
[2017-09-23] MEDS ORDERED: fentaNYL (PF) 50 MCG/ML 2 ML AMP ONE (13:31)
[2017-09-23] MEDS ORDERED: MIDAZOLAM 2 MG/2 ML VIAL ONE (13:31)
[2017-09-23] MEDS ORDERED: PHENYLEPHRINE-0.9% NACL SYG 1 MG/10 ML SYRINGE ONE (13:31)
[2017-09-23] MEDS ORDERED: ePHEDrine SULFATE/0.9% NACL/PF 50 MG/5 ML SYRINGE IV ONE (13:31)
[2017-09-23] MEDS ORDERED: LACTATED RINGERS 1,000 ML IV ONE (14:20)
[2017-09-23] MEDS ORDERED: ceFAZolin 3,000 MG in SODIUM CHLORIDE 0.9% IRRIGATIO 3,000 ML IRRIGATION ONE (14:56)
--- NOTE | 2017-09-23 15:51 | P.OP ---
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 Procedure(s) Performed: Stage II revision right total knee arthroplasty Implants: [employer] Oxinium femoral component size 5, right constrained [employer] press-fit stem 18 mm x 160 mm [employer]hew 5 mm posterior lateral femoral wedge [employer]hew 10mm posterior medial femoral wedge [employer] legion revision tibial baseplate size 5, right [employer] press-fit stem 15 mm x 160 mm [employer]hew size 13 mm Jelena II constrained articular insert, size 5-6 [employer]hew Jelena II resurfacing patellar component, 32 mm All components were cemented using VibeDeck antibiotic bone cement with tobramycin, 2 batches The articulation is Oxinium on polyethylene. Anesthesia: spinal Surgeon: Rhys Carter Manager Lsw #1: Shana Magaña Estimated Blood Loss (ml): 50 Pathology: other (Frozen section, and cultures 2) Condition: stable Disposition: PACU Indications for Procedure: This is an 82-year-old gentleman that has had a right total knee arthroplasty performed a number of years ago. He subsequently developed an infection, and was treated with a stage I revision with placement of antibiotic spacer by my associate, Dr. Contreras. Now it is felt the infection has been cleared, and he presents for his stage II revision he is aware of the fact that the infection may still persist, and require another stage I revision with antibiotic spacer. Informed consent was obtained. Operative Findings: The operative findings are consistent with a status post stage I revision right total knee arthroplasty for infection. There appeared to be no active acute infection. Intraoperative frozen section was found to be negative for acute inflammation. Description of Procedure: Patient was seen in the preoperative area consent was reviewed and operative site was marked with a skin marker. An adductor canal pain catheter was placed by anesthesia in the preoperative area. Patient was then brought to the operating room and given preoperative antibiotics intravenously. A spinal anesthetic was administered by the anesthesia department. A tourniquet was placed on the upper thigh and the lower extremity was prepped and draped in usual sterile fashion. A gram of transexamic acid was given. A universal timeout was then performed which confirmed the patient's name, surgical site, ALLERGIES, and consent. The lower extremity was then exsanguinated and tourniquet was inflated to 250 mmHg. A standard and anterior midline approach to the knee was performed with the prior scar being excised. The skin and subcutaneous tissue was dissected down to the patellar tendon. A medial parapatellar arthrotomy was then performed. There was a moderate amount of clear fluid encountered, which was cultured 2 . The knee was then extended, the patellar was everted, and the knee was again flexed. A quadriceps snip was performed, and piece of synovium was removed for frozen section. The frozen section came back less than 5 cells per high-powered field, indicating no acute infection. After thorough debridement was performed, the spacer was an easily removed from the femur and the tibia without damaging bone. Next, sequential hand reaming was performed of the femur until a good articulation was created with an 18 mm x 1 60 mm stem. The distal cutting guide was then placed and the distal cut was then freshened. The 4-in-1 cutting block was then placed over the reamer and pinned in place after set for the appropriate rotation. Appropriate cuts were then made. The femoral trial was then placed and found to have a 5 mm deficit posterior lateral, and a 10 mm deficit posterior medial. These wedges were then placed on the trial. The central box cutting guide was then placed, and the central area was then reamed to accommodate the box. Femoral trial was then removed. Attention was then directed to the tibia. The proximal tibia was then exposed. Sequential reaming of the tibia was then performed to 15 mm which was found to have excellent fixation. Proximal tibia cutting guide was then placed and set for just a small amount of resection, and the proximal tibia was then resected. The tibial sizing guide was then placed and was found to have a neutral bushing and relation to the stem. The bushing was then placed in the appropriate drill was used for the proximal stem. Next the wedge was used for the tibial fins. The trials were then placed with a 13 mm constrained insert. The knee was able to fully extend and flex to 115, and was stable throughout all range of motion. Attention was then directed to the patella. Patella was everted with the aid of towel clips and a saw was used to freshen the patellar cut. A 32 mm patellar guide was then placed, and the drill holes were made for the patella. Patella was then trialed. Next all trials were then removed. The cut surfaces of bone were then irrigated with pulsatile lavage. The posterior structures were injected with the ropivacaine solution. The knee was also irrigated with Irrisept solution. The components were then opened, the cement was mixed, and the components were then cemented in place. The cement was allowed to harden with the knee in full extension. While the cement was hardening, the remaining soft tissues were then injected with a ropivacaine solution, which consisted of 246.25 mg of ropivacaine, 0.5 mg of epinephrine, 30 mg of Toradol, 80 g of clonidine, and 48.45 mL of sterile water, for a total of 100 mL of fluid injected. After the cemented hardened. The tourniquet was released, and hemostasis was obtained. A second gram of transexamic acid was given. The knee was again irrigated. The knee was again taken through range of motion and found to be stable throughout all range of motion of 0-130 , and the patella tracked normally. The fascia was then closed with #2 strata fix suture. The subcutaneous tissue was closed with 3-0 Vicryl and 3-0 strata fix. Dermabond glue was used for the skin and placed with the knee in flexion. The patient was placed in a sterile silver dressing. Patient was then transferred to recovery room in stable condition. The accounting assistant AROLDO De La Vega was required due the complexity surgery and the need for a skilled surgical technologist. She assisted in positioning, draping, retraction, and closure of the wound.
[2017-09-23] MEDS ORDERED: hydrOXYzine PAMOATE 25 MG CAP PO PRN (16:34)
[2017-09-23] MEDS ORDERED: NA PHOS,M-B/NA PHOS,DI-BA 133 ML ENEMA RECTAL PRN (16:34)
[2017-09-23] MEDS ORDERED: MAGNESIUM HYDROXIDE 2,400 MG/10 ML CUP PO PRN (16:34)
[2017-09-23] MEDS ORDERED: MORPHINE SULFATE 4 MG/ML SYRINGE IVP PRN ×4 (16:34)
[2017-09-23] MEDS ORDERED: DIAZEPAM 5 MG TAB PO PRN ×2 (16:34)
[2017-09-23] MEDS ORDERED: ONDANSETRON 4 MG/2 ML VIAL IVP PRN (16:34)
[2017-09-23] MEDS ORDERED: NALOXONE 0.4 MG/ML 1 ML VIAL IV PRN (16:34)
[2017-09-23] MEDS ORDERED: BISACODYL 10 MG SUPP RECTAL PRN (16:34)
[2017-09-23] MEDS ORDERED: HYDROcodone/APAP 5-325MG 1 EACH TAB PO PRN (16:34)
[2017-09-23 16:39] LABS: Glucose,Whole Blood 202 mg/dL (75-99)
--- NOTE | 2017-09-23 17:17 | XR ---
EXAMINATION TYPE: XR knee limited RT DATE OF EXAM: 09/23/2017 COMPARISON: 11/28/2016 HISTORY: Postop TECHNIQUE: 2 views FINDINGS: There is a right knee prosthesis. Components appear in anatomic position. IMPRESSION: Right knee prosthesis revision. No complicating process seen.
[2017-09-23] MEDS ORDERED: INSULIN ASPART 100 UNIT/ML 1 ML 10 ML VIAL SQ ONE ×2 (17:36→23:15)
[2017-09-23] MEDS ORDERED: RIVAROXABAN 15 MG TAB PO SCH (18:45)
[2017-09-23] MEDS ORDERED: LORATADINE 10 MG TAB PO PRN (19:23)
[2017-09-23] MEDS ORDERED: ENOXAPARIN 40 MG/0.4 ML SYRINGE SQ STA (19:37)
[2017-09-23] MEDS: ATORVASTATIN 20 MG TAB PO SCH (22:18)
[2017-09-23] MEDS: TAMSULOSIN 0.4 MG CAP.ER.24H PO SCH (22:19)
[2017-09-23] MEDS: INSULIN DETEMIR 100 UNIT/ML 10 ML VIAL SQ SCH (22:19)
[2017-09-23] MEDS: glipiZIDE 10 MG TAB PO SCH (22:19)
[2017-09-23] MEDS: SENNOSIDES-DOCUSATE SODIUM 1 EACH TAB PO SCH (22:19)
[2017-09-23] MEDS: metFORMIN 500 MG TAB PO SCH (22:20)
[2017-09-23] MEDS: SODIUM CHLORIDE 0.9% 1,000 ML IV SCH (22:22)
[2017-09-23 23:09] LABS: Glucose,Whole Blood 358 mg/dL (75-99)
--- NOTE | 2017-09-24 05:48 | P.PN ---
Progress Note - Text Progress Note Date: 09/24/17 Patient seen at 6:15am. 82 yo gentleman Status post right total knee replacement. Patient received the adductor canal catheter. Ropivacaine 0.2% at 8 mls/hr. Patient was sitting in bed comfortably. VAS score of 0/10 no complaints overnight. Assessment and plan: patient will be sent home with the adductor canal pump. Adequate pain control.
[2017-09-24 07:17] LABS: Glucose,Whole Blood 195 mg/dL (75-99)
[2017-09-24] MEDS: INSULIN ASPART 100 UNIT/ML 1 ML 10 ML VIAL SQ SCH ×4 (07:57→21:47)
[2017-09-24] MEDS: LISINOPRIL 2.5 MG TAB PO SCH (07:58)
[2017-09-24] MEDS: metFORMIN 500 MG TAB PO SCH ×4 (07:58→21:46)
[2017-09-24] MEDS: TAMSULOSIN 0.4 MG CAP.ER.24H PO SCH ×2 (07:58→21:47)
[2017-09-24] MEDS: glipiZIDE 10 MG TAB PO SCH ×4 (07:58→21:46)
[2017-09-24 08:22] LABS: Basophils % (A) 0 %; Eosinophils % (A) 0 %; HCT 31.7 % (39.0-53.0); HGB 10.3 gm/dL (13.0-17.5); Lymphocytes # (A) 1.5 k/uL (1.0-4.8); Lymphocytes % (A) 13 %; MCH 30.4 pg (25.0-35.0); MCHC 32.5 g/dL (31.0-37.0); Mean Platelet Volume 7.2; Monocytes # (A) 0.5 k/uL (0-1.0); Monocytes % (A) 5 %; Neutrophils # (A) 9.3 k/uL (1.3-7.7); Neutrophils % (A) 81 %; Platelet Count 192 k/uL (150-450); RBC 3.38 m/uL (4.30-5.90); WBC 11.5 k/uL (3.8-10.6)
[2017-09-24 08:23] LABS: MCV 93.7 fL (80.0-100.0)
[2017-09-24 08:28] LABS: Albumin 3.2 g/dL (3.5-5.0); Calcium 8.7 mg/dL (8.4-10.2); Total Bilirubin 0.2 mg/dL (0.2-1.3); Total Protein 5.6 g/dL (6.3-8.2)
--- NOTE | 2017-09-24 08:40 | P.PN ---
Subjective Progress Note Date: 09/24/17 This is an 82-year-old male who is status post stage II revision right total knee arthroplasty. This is postoperative day #1. Patient is seen and evaluated at bedside with Dr. Rhys Carter. Today patient states his pain is well controlled. Patient denies any fever/chills, numbness, weakness, tingling, abdominal pain, shortness of breath or chest pain. Objective - Vital Signs Vital signs: Vital Signs Temp 98.3 F 09/24/17 07:20 Pulse 89 09/24/17 07:20 Resp 16 09/24/17 07:20 BP 113/70 09/24/17 07:20 Pulse Ox 94 L 09/24/17 07:20 Intake & Output 09/23/17 09/24/17 09/24/17 18:59 06:59 18:59 Intake Total 1951 1220 Output Total 50 450 Balance 1901 770 Intake: IV 195 Intake, IV Titration 620 Amount Sodium Chloride 0.9% 1, 520 000 ml @ 65 mls/hr IV . [id number] [facility] Rx#:[id number] ceFAZolin 3 gm In Sodium 100 Chloride 0.9% 50 ml @ 50 mls/hr IVPB Q8H [facility] Rx#: [id number] Oral 600 Output: Urine 450 Estimated Blood Loss 50 Other: Voiding Method Toilet Urinal # Voids 4 - Exam Vital signs are stable. Patient is in no acute distress and is alert and oriented 3. Calf is soft and nontender to palpation. Dressing is clean, dry, and intact. Patient has full foot and ankle motion without pain or difficulty. Neurovascular status and circulatory status are intact. - Labs CBC & Chem 7: 09/24/17 07:37 09/24/17 07:37 Labs: Abnormal Lab Results - Last 24 Hours (Table) 09/23/17 09/23/17 09/23/17 Range/Units 11:41 16:33 23:04 WBC (3.8-10.6) k/uL RBC (4.30-5.90) m/uL Hgb (13.0-17.5) gm/dL Hct (39.0-53.0) % Neutrophils # (1.3-7.7) k/uL POC Glucose (mg/dL) 173 H 202 H 358 H (75-99) mg/dL 09/24/17 09/24/17 Range/Units 07:14 07:37 WBC 11.5 H (3.8-10.6) k/uL RBC 3.38 L (4.30-5.90) m/uL Hgb 10.3 L (13.0-17.5) gm/dL Hct 31.7 L (39.0-53.0) % Neutrophils # 9.3 H (1.3-7.7) k/uL POC Glucose (mg/dL) 195 H (75-99) mg/dL Microbiology - Last 24 Hours (Table) 09/23/17 14:08 Wound Culture - Preliminary Knee - Right 09/23/17 14:08 Anaerobic Culture - Preliminary Knee - Right 09/23/17 14:08 Wound Culture - Preliminary Knee - Right 09/23/17 14:08 Anaerobic Culture - Preliminary Knee - Right Assessment and Plan (1) S/P total knee arthroplasty Current Visit: Yes Status: Acute Code(s): Z96.659 - PRESENCE OF UNSPECIFIED ARTIFICIAL KNEE JOINT SNOMED Code(s): 4185685516612 (2) Primary osteoarthritis of right knee Current Visit: Yes Status: Acute Code(s): M17.11 - UNILATERAL PRIMARY OSTEOARTHRITIS, RIGHT KNEE SNOMED Code(s): 082864432703465 Plan: #1 Continue with routine postoperative care, leave dressing in place for 10-14 days. #2 Anticoagulation per medicine. #3 Physical therapy and CPM today. #4 Appreciate input from medicine. #5 Anticipate discharge to rehab Friday.
[2017-09-24] MEDS ORDERED: ENOXAPARIN 40 MG/0.4 ML SYRINGE SQ SCH (09:00)
[2017-09-24 11:06] LABS: Glucose,Whole Blood 236 mg/dL (75-99)
[2017-09-24] MEDS: LACTATED RINGERS 1,000 ML IV SCH (11:09)
[2017-09-24] MEDS: SODIUM CHLORIDE 0.9% 1,000 ML IV SCH ×2 (11:10→22:54)
[2017-09-24] MEDS: POLYETHYLENE GLYCOL 3350 17 GM POWD.PACK PO SCH (12:44)
[2017-09-24] MEDS ORDERED: HYDROmorphone 2 MG TAB PO PRN ×3 (15:34→15:35)
[2017-09-24] MEDS ORDERED: HYDROmorphone 4 MG TABLET PO PRN (15:36)
--- NOTE | 2017-09-24 16:07 | P.CONS ---
History of Present Illness - Reason for Consult Consult date: 09/24/17 Requesting physician: Rhys Carter - Chief Complaint Medical management, right total knee arthroplasty revision - History of Present Illness This is a pleasant 82-year-old gentleman patient of Dr. Larkin, he has underlying history of hypertension, hyperlipidemia, Ulcy vascular disease, obstructive sleep apnea, diabetes mellitus type 2, and obstructive sleep apnea, who underwent a right total knee revision stage II on 09/23/2017. He had initially a right total knee arthroplasty in 2008, and This got infected and treated from 11/26/2016, stage I revision required antibiotic spacer secondary to the infected right total knee arthroplasty. He was followed by infectious disease, prior to the current revision. Patient denies any Clostridium difficile A, culture in 11/27/2016 was growing MSSA from the right knee The patient denies any chest pain shortness of breath difficulty breathing, patient denies any recent falls, no melena and hematochezia, postoperative deep patient is stable without any hypotensive events, hemoglobin of 10.3, creatinine of 1.53 albumin low at 3.2, Review of Systems Constitutional: Reports as per HPI, Denies anorexia, Denies chills, Denies chronic headaches, Denies chronic pain, Denies daytime sleepiness, Denies fatigue, Denies fever, Denies lethargy, Denies malaise, Denies night sweats, Denies poor appetite, Denies sweats, Denies weakness, Denies weight gain, Denies weight loss Ears, nose, mouth and throat: Reports as per HPI, Denies ant. neck pain, Denies bleeding gums, Denies dental pain, Denies dysphagia, Denies epistaxis, Denies headache, Denies hoarseness, Denies mouth pain, Denies nasal congestion, Denies nasal discharge, Denies neck fullness/pressure, Denies neck lump, Denies nose pain, Denies odynophagia, Denies post-nasal drip, Denies sinus pain, Denies sinus pressure, Denies swelling in mouth, Denies swelling in throat, Denies sore throat, Denies vertigo, Denies voice changes Cardiovascular: Reports as per HPI, Denies chest pain, Denies claudication, Denies decreased exercise tolerance, Denies dyspnea on exertion, Denies edema, Denies high blood pressure, Denies irregular heart beat, Denies leg edema, Denies lightheadedness, Denies orthopnea, Denies palpitations, Denies paroxysmal nocturnal dyspnea, Denies phlebitis, Denies rapid heart beat, Denies shortness of breath, Denies syncope Respiratory: Reports as per HPI, Denies congestion, Denies cough, Denies cough with sputum, Denies dyspnea, Denies excessive sputum, Denies hemoptysis, Denies home oxygen, Denies pain, Denies pain on inspiration, Denies pleurisy, Denies respiratory infections, Denies sleep apnea, Denies snoring, Denies wheezing Gastrointestinal: Reports as per HPI, Denies abdominal pain, Denies belching, Denies bloating, Denies BRBPR, Denies change in bowel habits, Denies coffee ground emesis, Denies constipation, Denies diarrhea, Denies dyspepsia, Denies early satiety, Denies excessive gas, Denies heartburn, Denies hematemesis, Denies hematochezia, Denies indigestion, Denies jaundice, Denies lactose intolerance, Denies loss of appetite, Denies melena, Denies nausea, Denies vomiting Genitourinary: Reports as per HPI, Denies decreased libido, Denies difficulties fathering child, Denies discharge, Denies dysuria, Denies erectile dysfunction, Denies flank pain, Denies genital pain, Denies genital sores, Denies hematuria, Denies impotence, Denies incontinence, Denies kidney stones, Denies nocturia, Denies polyuria, Denies testicular lump, Denies testicular pain, Denies urinary frequency, Denies urinary hesitancy, Denies urinary retention Musculoskeletal: Reports as per HPI, Reports gait dysfunction, Reports limitation of motion, Denies arm numbness/tingling, Denies atrophy, Denies fractures, Denies frequent falls, Denies hot joints, Denies leg numbness/ tingling, Denies loss of height, Denies low back pain, Denies morning stiffness , Denies muscle cramps, Denies muscle weakness, Denies myalgias, Denies neck pain, Denies neck stiffness, Denies prior amputations, Denies redness of joints , Denies shooting arm pain, Denies shooting leg pain Integumentary: Reports as per HPI, Denies acne, Denies boils, Denies brittle nails, Denies change in hair/nails, Denies color changes, Denies darkening of skin, Denies depigmentation, Denies dryness, Denies foot/leg ulcers, Denies growths, Denies hirsutism, Denies lesions, Denies onychomycosis, Denies pruritus , Denies rash, Denies sores, Denies striae, Denies unusual bruising, Denies wounds Neurological: Reports as per HPI, Denies aphasia, Denies ataxia, Denies balance difficulties, Denies burning pain, Denies change in mentation, Denies change in smell/taste, Denies change in speech, Denies confusion, Denies convulsions, Denies double vision, Denies gait dysfunction, Denies head injury, Denies headaches, Denies hearing difficulties, Denies lack of coordination, Denies loss of vision, Denies memory loss, Denies migraines, Denies motor disturbance, Denies numbness, Denies paralysis, Denies paresthesias, Denies seizures, Denies sensory deficit, Denies spasticity, Denies syncope, Denies tic, Denies tingling , Denies transient paralysis, Denies tremors, Denies vertigo, Denies weakness, Denies visual changes Psychiatric: Reports as per HPI Endocrine: Reports as per HPI, Denies cold intolerance, Denies deepening of the voice, Denies excessive sweating, Denies excessive thirst, Denies fatigue, Denies flushing, Denies heat intolerance, Denies high blood sugars, Denies increase in ring/shoe/hat size, Denies low blood sugars, Denies nocturia, Denies palpitations, Denies polydipsia, Denies polyphagia, Denies polyuria, Denies proptosis, Denies recent glucocorticoid use, Denies thyroid mass, Denies weight change Hematologic/Lymphatic: Reports as per HPI Allergic/Immunologic: Reports as per HPI, Denies allergic rhinitis, Denies anaphylaxis, Denies angioedema, Denies gluten intolerance, Denies persistent infections, Denies seasonal allergies, Denies urticaria, Denies wheezing Past Medical History Past Medical History: Diabetes Mellitus, Deep Vein Thrombosis (DVT), GERD/Reflux , Hyperlipidemia, Hypertension, Osteoarthritis (OA), Prostate Disorder, Sleep Apnea/CPAP/BIPAP Additional Past Medical History / Comment(s): WHEELCHAIR BOUND, NO KNEE JOINT IN RIGHT LEG. INFECTION OF RIGHT KNEE ARTHROPLASTY, REMOVAL OF JOINT. USES CPAP. Diverticulosis, hemmorhoids, constIpation, varicose veins, ulcers History of Any Multi-Drug Resistant Organisms: None Reported Additional Past Surgical History / Comment(s): RIGHT knee arthroscopy, REMOVAL OF JOINT IN NOVEMBER 2016. BIil total knee replacEments. egd/colonoscopy. Jose cataracts-lens implants. RIGHT ing hernia, umb hernia,ventral hernia. Exp lap -repair of perforated ulcer Past Anesthesia/Blood Transfusion Reactions: No Reported Reaction Past Psychological History: No Psychological Hx Reported Additional Psychological History / Comment(s): pt lives with his of 63 years( rikki)and 1 son in a 2 story home. they stay on first level. they have 4 porch steps. 2 house cats. medical equipment -cpap, 4 wheeled walker. no out side services. Smoking Status: Never smoker Past Alcohol Use History: Rare Additional Past Alcohol Use History / Comment(s): Patient is a lifelong nonsmoker. He denies any medical marijuana, marijuana, street drug or alcohol use. He worked in the past [employer] and at [employer]. He served in the [employer] starting during the [place] but was stationed in the [place]. There is one cat in the home. Past Drug Use History: None Reported - Past Family History Mother Family Medical History: Diabetes Mellitus Additional Family Medical History / Comment(s): Mother at age 83 from complications from diabetes. Father Family Medical History: Coronary Artery Disease (CAD) Additional Family Medical History / Comment(s): Father at age 93 and only history was pacemaker implantation at age 93. Brother(s) History Unknown: Yes Additional Family Medical History / Comment(s): Patient was 1 brother that at age 77 with history of Alzheimer's disease and Parkinson's. Sister(s) Family Medical History: Cancer Additional Family Medical History / Comment(s): 2 SISTERS HAD BREAST CANCER Son(s) Additional Family Medical History / Comment(s): Patient has 2 sons and 5 daughters. One daughter from breast cancer at age 27. Other children have no major medical problems. Daughter(s) Family Medical History: Cancer Additional Family Medical History / Comment(s): BREAST CANCER AT 27, SURVIVED FOR 5 YEARS. Medications and Allergies Home Medications Medication Instructions Recorded Confirmed Type Hydrochlorothiazide [Hydrodiuril] 25 mg PO BID 11/26/16 09/23/17 History Lisinopril [Zestril] 2.5 mg PO QAM 11/26/16 09/23/17 History Loratadine [Claritin] 10 mg PO DAILY PRN 11/26/16 09/23/17 History Simvastatin [Zocor] 40 mg PO HS 11/26/16 09/23/17 History Tamsulosin [Flomax] 0.4 mg PO BID 11/26/16 09/23/17 History glyBURIDE/METFORMIN HCL 1 tab PO QID 11/26/16 09/23/17 History [Glucovance 5-500 mg Tablet] Multivitamins, Thera [Multivitamin 1 tab PO DAILY 08/20/17 09/23/17 History (formulary)] Rivaroxaban [Xarelto] 15 mg PO BID 08/20/17 09/23/17 History Enoxaparin [Lovenox] 120 mg PO DAILY 09/15/17 09/23/17 History Insulin Glargine,Hum.rec.anlog 16 unit SQ HS 09/15/17 09/23/17 History [Basaglar Kwikpen U-100] Polyethylene Glycol 3350 [Miralax] 17 gm PO DAILY 09/15/17 09/23/17 History Hydrocodone/Acetaminophen [[place] 1 - 2 tab PO Q4HR PRN 09/23/17 09/23/17 History 5-325] Allergies Allergy/AdvReac Type Severity Reaction Status Date / Time No Known Allergies Allergy Verified 09/23/17 19:19 Physical Exam Vitals: Vital Signs Temp Pulse Pulse Resp BP Pulse Ox 09/24/17 15:00 97.6 F 94 16 110/62 100 09/24/17 07:20 98.3 F 89 16 113/70 94 L 09/24/17 02:27 98.6 F 100 108/63 09/24/17 00:00 16 09/23/17 21:45 104 H 112/64 09/23/17 21:30 102 H 124/71 09/23/17 21:15 103 H 136/74 09/23/17 21:00 104 H 99/62 09/23/17 20:45 103 H 106/56 09/23/17 20:30 99 109/56 09/23/17 20:15 101 H 110/54 09/23/17 20:00 103 H 16 120/62 09/23/17 19:45 98.2 F 103 H 16 125/82 96 09/23/17 18:51 107 H 16 119/70 97 09/23/17 18:15 110 H 14 135/72 95 09/23/17 17:30 93 16 106/59 104 H 09/23/17 17:15 96 16 104/57 96 09/23/17 17:00 98 16 99/57 96 09/23/17 16:45 105 H 16 96/53 96 09/23/17 16:29 97.2 F L 103 H 14 108/57 95 Intake and Output 09/24/17 09/24/17 09/24/17 06:59 14:59 22:59 Intake Total 1220 1000 Output Total 150 Balance 1220 850 Intake: IV 300 Sodium Chloride 0.9% 1, 300 000 ml @ 65 mls/hr IV . [id number] [facility] Rx#:[id number] Intake, IV Titration 620 Amount Sodium Chloride 0.9% 1, 520 000 ml @ 65 mls/hr IV . [id number] [facility] Rx#:[id number] ceFAZolin 3 gm In Sodium 100 Chloride 0.9% 50 ml @ 50 mls/hr IVPB Q8H [facility] Rx#: [id number] Oral 600 700 Output: Urine 150 Other: # Voids 4 - Constitutional General appearance: cooperative - EENT Eyes: abnormal pupil, anicteric sclerae, no disc margins sharp, no edentulous, no EOMI, PERRLA, no fundus normal, no photophobia, no dentition normal, no poor dentition, no ptosis, no scleral icterus, no normal appearance ENT: NA/AT, normal oropharynx - Neck Neck: no lymphadenopathy, normal ROM, no other, no rigidity, no stridor, no thyromegaly - Respiratory Respiratory: bilateral: CTA, negative: diminished, dullness, rales, rhonchi - Cardiovascular Rhythm: regular Heart sounds: normal: S1, S2 Abnormal Heart Sounds: no systolic murmur, no diastolic murmur, no rub, no S3 Gallop, no S4 Gallop, no click, no other - Gastrointestinal General gastrointestinal: normal bowel sounds, soft - Integumentary Integumentary: normal, normal turgor - Neurologic Neurologic: CNII-XII intact - Musculoskeletal Musculoskeletal: gait normal, strength equal bilaterally - Psychiatric Psychiatric: A&O x's 3, appropriate affect, intact judgment & insight Results CBC & Chem 7: 09/24/17 07:37 09/24/17 07:37 Labs: Abnormal Lab Results - Last 24 Hours (Table) 09/23/17 09/23/17 09/24/17 Range/Units 16:33 23:04 07:14 WBC (3.8-10.6) k/uL RBC (4.30-5.90) m/uL Hgb (13.0-17.5) gm/dL Hct (39.0-53.0) % Neutrophils # (1.3-7.7) k/uL Sodium (137-145) mmol/L BUN (9-20) mg/dL Creatinine (0.66-1.25) mg/dL Glucose (74-99) mg/dL POC Glucose (mg/dL) 202 H 358 H 195 H (75-99) mg/dL Total Protein (6.3-8.2) g/dL Albumin (3.5-5.0) g/dL 09/24/17 09/24/17 09/24/17 Range/Units 07:37 07:37 11:04 WBC 11.5 H (3.8-10.6) k/uL RBC 3.38 L (4.30-5.90) m/uL Hgb 10.3 L (13.0-17.5) gm/dL Hct 31.7 L (39.0-53.0) % Neutrophils # 9.3 H (1.3-7.7) k/uL Sodium 136 L (137-145) mmol/L BUN 30 H (9-20) mg/dL Creatinine 1.53 H (0.66-1.25) mg/dL Glucose 167 H (74-99) mg/dL POC Glucose (mg/dL) 236 H (75-99) mg/dL Total Protein 5.6 L (6.3-8.2) g/dL Albumin 3.2 L (3.5-5.0) g/dL Microbiology - Last 24 Hours (Table) 09/23/17 14:08 Gram Stain - Preliminary Knee - Right Wound Culture - Preliminary 09/23/17 14:08 Gram Stain - Preliminary Knee - Right Wound Culture - Preliminary 09/23/17 14:08 Anaerobic Culture - Preliminary Knee - Right 09/23/17 14:08 Anaerobic Culture - Preliminary Knee - Right Laboratory Results WBC 11.5 k/uL (3.8-10.6) H 09/24/17 07:37 RBC 3.38 m/uL (4.30-5.90) L 09/24/17 07:37 Hgb 10.3 gm/dL (13.0-17.5) L 09/24/17 07:37 Hct 31.7 % (39.0-53.0) L 09/24/17 07:37 MCV 93.7 fL (80.0-100.0) D 09/24/17 07:37 MCH 30.4 pg (25.0-35.0) 09/24/17 07:37 MCHC 32.5 g/dL (31.0-37.0) 09/24/17 07:37 RDW 13.0 % (11.5-15.5) 09/24/17 07:37 Plt Count 192 k/uL (150-450) 09/24/17 07:37 Neutrophils % 81 % 09/24/17 07:37 Lymphocytes % 13 % 09/24/17 07:37 Monocytes % 5 % 09/24/17 07:37 Eosinophils % 0 % 09/24/17 07:37 Basophils % 0 % 09/24/17 07:37 Neutrophils # 9.3 k/uL (1.3-7.7) H 09/24/17 07:37 Lymphocytes # 1.5 k/uL (1.0-4.8) 09/24/17 07:37 Monocytes # 0.5 k/uL (0-1.0) 09/24/17 07:37 Eosinophils # 0.0 k/uL (0-0.7) 09/24/17 07:37 Basophils # 0.0 k/uL (0-0.2) 09/24/17 07:37 Sodium 136 mmol/L (137-145) L 09/24/17 07:37 Potassium 5.0 mmol/L (3.5-5.1) 09/24/17 07:37 Chloride 102 mmol/L (98-107) 09/24/17 07:37 Carbon Dioxide 25 mmol/L (22-30) 09/24/17 07:37 Anion Gap 9 mmol/L 09/24/17 07:37 BUN 30 mg/dL (9-20) H 09/24/17 07:37 Creatinine 1.53 mg/dL (0.66-1.25) H 09/24/17 07:37 Est GFR (CKD-EPI)AfAm 48 (>60 ml/min/1.73 sqM) 09/24/17 07:37 Est GFR (CKD-EPI)NonAf 41 (>60 ml/min/1.73 sqM) 09/24/17 07:37 Glucose 167 mg/dL (74-99) H 09/24/17 07:37 POC Glucose (mg/dL) 236 mg/dL (75-99) H 09/24/17 11:04 POC Glu Housekeeping Coordinator Mary Gonzales 09/24/17 11:04 Calcium 8.7 mg/dL (8.4-10.2) 09/24/17 07:37 Total Bilirubin 0.2 mg/dL (0.2-1.3) 09/24/17 07:37 AST 35 U/L (17-59) 09/24/17 07:37 ALT 43 U/L (21-72) 09/24/17 07:37 Alkaline Phosphatase 47 U/L (38-126) 09/24/17 07:37 Total Protein 5.6 g/dL (6.3-8.2) L 09/24/17 07:37 Albumin 3.2 g/dL (3.5-5.0) L 09/24/17 07:37 Assessment and Plan Plan: 1. Right total knee revision stage II performed 09/23/2017 for a previous right total knee arthroplasty 2008 and septic knee last November 2016 treated adequately and was followed by Dr. Hernandez infectious disease, comes in for the stage II revision patient currently is in the orthopedic floor receiving therapies, incentive spirometry, opiates for pain control, and several toe for DVT prophylaxis. He was given one-time dose of Lovenox last night, he did have 2 previous provoked episode off DVT in the past. Pain control was with on- Q and opiates 2. Previous history of DVT x2 , provoked both by orthopedic surgery procedures , patient will be receiving Advdpx), at least 4 weeks especially if prolonged recovery expected for ambulation 3. Diabetes mellitus type 2 with hyperglycemia and complications,, on Levemir 16 units at bedtime, and Glucovance 5/500 one tab 4 times a day hemoglobin A1c to be obtained, Accu-Cheks with NovoLog correctional scale 4. Hypertension and hypertensive cardiovascular disease. We will continue patient on lisinopril 2.5 mg orally once every day, hold on HCTZ. Till hemodynamics are stabilized 5. BPH without lower in the tract symptomatology, patient is started on Flomax 0.4 mg twice a day, monitor for postobstructive uropathy, patient is not on any folic acid or 6. Hyperlipidemia. Continue Lipitor 20 mg orally once every day. Check for CPK to evaluate for rhabdo, 7. GERD. Continue Protonix 40 mg orally once every day. 8. Obesity with obstructive sleep apnea. Continue CPAP. 9. DVT prophylaxis. Patient will be started on the Xarelto 10 mg daily 10. CK D stage III, has acute renal sufficiency baseline creatinine between 1.3 -1.09 current entry creatinine of 1.5, BMP CPK to be followed 11 moderate hypoalbuminemia, albumin is 3.2 BMI 44 Debility, PT OT, possible subacute against home rehabilitation Discharge plan: To be determined Thank you Dr. Carter in allowing us to participate in the care of your patient care. We will follow him with you with close supervision you during this current hospital stay, recommendations and changes to his treatment will be based on his clinical progress
[2017-09-24 17:23] LABS: Glucose,Whole Blood 98 mg/dL (75-99)
[2017-09-24] MEDS ORDERED: RIVAROXABAN 15 MG TAB PO SCH (17:30)
[2017-09-24] MEDS: RIVAROXABAN 10 MG TAB PO SCH (17:36)
[2017-09-24 18:17] LABS: Hemoglobin A1C 7.8 % (4.0-6.0)
[2017-09-24 20:05] LABS: Glucose,Whole Blood 119 mg/dL (75-99)
[2017-09-24] MEDS: ATORVASTATIN 20 MG TAB PO SCH (21:46)
[2017-09-24] MEDS: INSULIN DETEMIR 100 UNIT/ML 10 ML VIAL SQ SCH (21:46)
[2017-09-24] MEDS: SENNOSIDES-DOCUSATE SODIUM 1 EACH TAB PO SCH (21:47)
[2017-09-25 07:00] LABS: Basophils % (A) 1 %; Eosinophils # (A) 0.1 k/uL (0-0.7); Eosinophils % (A) 2 %; HCT 30.6 % (39.0-53.0); HGB 10.3 gm/dL (13.0-17.5); Lymphocytes # (A) 1.6 k/uL (1.0-4.8); Lymphocytes % (A) 24 %; MCH 31.4 pg (25.0-35.0); MCHC 33.6 g/dL (31.0-37.0); MCV 93.5 fL (80.0-100.0); Mean Platelet Volume 7.1; Monocytes # (A) 0.5 k/uL (0-1.0); Monocytes % (A) 8 %; Neutrophils # (A) 4.3 k/uL (1.3-7.7); Neutrophils % (A) 64 %; Platelet Count 187 k/uL (150-450); RBC 3.27 m/uL (4.30-5.90); RDW 13.4 % (11.5-15.5); WBC 6.7 k/uL (3.8-10.6)
[2017-09-25] MEDS: LACTATED RINGERS 1,000 ML IV SCH (07:02)
[2017-09-25 07:10] LABS: Albumin 3.3 g/dL (3.5-5.0); Calcium 8.9 mg/dL (8.4-10.2); Potassium 5.1 mmol/L (3.5-5.1); Total Bilirubin 0.3 mg/dL (0.2-1.3); Total Protein 5.7 g/dL (6.3-8.2)
[2017-09-25 07:17] LABS: Glucose,Whole Blood 103 mg/dL (75-99)
[2017-09-25] MEDS: INSULIN ASPART 100 UNIT/ML 1 ML 10 ML VIAL SQ SCH ×4 (07:18→22:34)
--- NOTE | 2017-09-25 08:26 | P.PN ---
Progress Note - Text The patient is status post right adductor canal catheter placement. The catheter was placed for postoperative pain control, status post total right arthroplasty. Ropivacaine 0.2% is infusing at 8 mLs per hour. The patient has no complaints of right lower extremity numbness or weakness. Patient's VAS score is 0-1 -10. Assessment: Patient's adductor canal catheter is in place and working appropriately. Plan: continue infusion and adjust it as needed.
[2017-09-25] MEDS: POLYETHYLENE GLYCOL 3350 17 GM POWD.PACK PO SCH (08:38)
[2017-09-25] MEDS: metFORMIN 500 MG TAB PO SCH ×4 (08:39→22:35)
[2017-09-25] MEDS: glipiZIDE 10 MG TAB PO SCH ×4 (08:39→22:35)
[2017-09-25] MEDS: LISINOPRIL 2.5 MG TAB PO SCH (08:39)
[2017-09-25] MEDS: TAMSULOSIN 0.4 MG CAP.ER.24H PO SCH ×2 (08:39→22:35)
--- NOTE | 2017-09-25 08:47 | P.PN ---
Subjective Progress Note Date: 09/25/17 This is an 82-year-old male who is status post stage II revision right total knee arthroplasty. This is postoperative day #2. Patient states his pain is well controlled. Patient denies any fever/chills, calf pain, numbness, weakness , tingling, abdominal pain, shortness of breath or chest pain. Objective - Vital Signs Vital signs: Vital Signs Temp 97.6 F 09/25/17 07:46 Pulse 87 09/25/17 07:46 Resp 15 09/25/17 07:46 BP 121/66 09/25/17 07:46 Pulse Ox 97 09/25/17 07:46 Intake & Output 09/24/17 09/25/17 09/25/17 18:59 06:59 18:59 Intake Total 1000 Output Total 150 375 Balance 850 -375 Intake: IV 300 Sodium Chloride 0.9% 1, 300 000 ml @ 65 mls/hr IV . [id number] [facility] Rx#:[id number] Oral 700 Output: Urine 150 375 Other: Voiding Method Toilet Urinal - Exam Vital signs are stable. Patient is in no acute distress and is alert and oriented 3. Calf is soft and nontender to palpation. Dressing is clean, dry, and intact. Patient has full foot and ankle motion without pain or difficulty. Neurovascular status and circulatory status are intact. - Labs CBC & Chem 7: 09/25/17 06:33 09/25/17 06:33 Labs: Abnormal Lab Results - Last 24 Hours (Table) 09/24/17 09/24/17 09/24/17 Range/Units 07:37 11:04 20:02 RBC (4.30-5.90) m/uL Hgb (13.0-17.5) gm/dL Hct (39.0-53.0) % BUN (9-20) mg/dL Creatinine (0.66-1.25) mg/dL Glucose (74-99) mg/dL POC Glucose (mg/dL) 236 H 119 H (75-99) mg/dL Hemoglobin A1c 7.8 H (4.0-6.0) % Total Protein (6.3-8.2) g/dL Albumin (3.5-5.0) g/dL 09/25/17 09/25/17 09/25/17 Range/Units 06:33 06:33 07:11 RBC 3.27 L (4.30-5.90) m/uL Hgb 10.3 L (13.0-17.5) gm/dL Hct 30.6 L (39.0-53.0) % BUN 26 H (9-20) mg/dL Creatinine 1.36 H (0.66-1.25) mg/dL Glucose 104 H (74-99) mg/dL POC Glucose (mg/dL) 103 H (75-99) mg/dL Hemoglobin A1c (4.0-6.0) % Total Protein 5.7 L (6.3-8.2) g/dL Albumin 3.3 L (3.5-5.0) g/dL Microbiology - Last 24 Hours (Table) 09/23/17 14:08 Gram Stain - Preliminary Knee - Right Wound Culture - Preliminary 09/23/17 14:08 Gram Stain - Preliminary Knee - Right Wound Culture - Preliminary Assessment and Plan (1) S/P total knee arthroplasty Current Visit: Yes Status: Acute Code(s): Z96.659 - PRESENCE OF UNSPECIFIED ARTIFICIAL KNEE JOINT SNOMED Code(s): 7914351704434 (2) Primary osteoarthritis of right knee Current Visit: Yes Status: Acute Code(s): M17.11 - UNILATERAL PRIMARY OSTEOARTHRITIS, RIGHT KNEE SNOMED Code(s): 085292983877034 Plan: #1 Continue with routine postoperative care, leave dressing in place for 10-14 days. #2 Anticoagulation per medicine. #3 Physical therapy and CPM today. #4 Appreciate input from medicine. #5 Anticipate discharge to rehab Friday.
[2017-09-25 11:31] LABS: Glucose,Whole Blood 131 mg/dL (75-99)
[2017-09-25] MEDS: SODIUM CHLORIDE 0.9% 1,000 ML IV SCH (13:03)
[2017-09-25] MEDS: HYDROcodone/APAP 5-325MG 1 EACH TAB PO PRN ×2 (13:27→19:04)
[2017-09-25 17:27] LABS: Glucose,Whole Blood 123 mg/dL (75-99)
[2017-09-25] MEDS: RIVAROXABAN 10 MG TAB PO SCH (18:07)
[2017-09-25 21:17] LABS: Glucose,Whole Blood 167 mg/dL (75-99)
[2017-09-25] MEDS: ATORVASTATIN 20 MG TAB PO SCH (22:34)
[2017-09-25] MEDS: INSULIN DETEMIR 100 UNIT/ML 10 ML VIAL SQ SCH (22:35)
[2017-09-25] MEDS: SENNOSIDES-DOCUSATE SODIUM 1 EACH TAB PO SCH (22:35)
[2017-09-26 07:12] LABS: Glucose,Whole Blood 84 mg/dL (75-99)
[2017-09-26 07:30] LABS: Basophils # (A) 0.1 k/uL (0-0.2); Basophils % (A) 1 %; Eosinophils # (A) 0.3 k/uL (0-0.7); Eosinophils % (A) 4 %; HGB 10.4 gm/dL (13.0-17.5); Lymphocytes # (A) 1.7 k/uL (1.0-4.8); Lymphocytes % (A) 25 %; MCH 31.1 pg (25.0-35.0); MCHC 33.7 g/dL (31.0-37.0); MCV 92.2 fL (80.0-100.0); Mean Platelet Volume 6.8; Monocytes # (A) 0.5 k/uL (0-1.0); Monocytes % (A) 7 %; Neutrophils # (A) 4.3 k/uL (1.3-7.7); Neutrophils % (A) 61 %; Platelet Count 199 k/uL (150-450); RBC 3.36 m/uL (4.30-5.90); RDW 13.2 % (11.5-15.5); WBC 7.1 k/uL (3.8-10.6)
[2017-09-26 08:04] LABS: Calcium 8.9 mg/dL (8.4-10.2); Potassium 4.6 mmol/L (3.5-5.1)
[2017-09-26] MEDS: INSULIN ASPART 100 UNIT/ML 1 ML 10 ML VIAL SQ SCH ×2 (08:17→12:53)
[2017-09-26] MEDS: SODIUM CHLORIDE 0.9% 1,000 ML IV SCH (08:17)
[2017-09-26] MEDS: LACTATED RINGERS 1,000 ML IV SCH (08:17)
[2017-09-26] MEDS: POLYETHYLENE GLYCOL 3350 17 GM POWD.PACK PO SCH (08:25)
[2017-09-26] MEDS: glipiZIDE 10 MG TAB PO SCH ×2 (08:26→12:53)
[2017-09-26] MEDS: metFORMIN 500 MG TAB PO SCH ×2 (08:26→12:53)
[2017-09-26] MEDS: LISINOPRIL 2.5 MG TAB PO SCH (08:26)
[2017-09-26] MEDS: TAMSULOSIN 0.4 MG CAP.ER.24H PO SCH (08:26)
--- NOTE | 2017-09-26 09:19 | P.PN ---
Progress Note - Text Anesthesia POD 3. Patient is status post right TKR under spinal anesthesia with a right adductor canal catheter placed for postoperative pain relief. With ropivacaine 0.2% running at 8 cc's per hour, the patient's VAS is (1, 3). Catheter site is clean dry and intact.
--- NOTE | 2017-09-26 09:53 | P.DS ---
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 Patient was treated with a stage I revision right total knee arthroplasty with placement of antibiotic spacer by Dr. Contreras. The patient presents for evaluation after infection of the right knee is successfully treated. After discussion and consideration patient elects to proceed with stage II revision right total knee arthroplasty. The patient is seen preoperatively by Dr. Carter and medically cleared for surgery by their primary care physician. Patient is admitted to [facility] on 09/23/2017 for total knee arthroplasty. The procedures performed without complication or sequelae. The patient is doing well postoperatively. Labs and vital signs are stable on day of discharge. Final cultures of the right knee are negative. On day of discharge patient's knee incision is healing well. There is minimal erythema. There is no drainage noted at this time. There is minimal soft tissue swelling to the knee. Patient has full foot and ankle motion without difficulty or pain. Calf is soft and nontender to palpation. Neurovascular status to the right lower extremity is intact. Patient is discharged to rehab in good condition. Please see med rec for accurate list of home medications. Plan - Discharge Summary Discharge Rx Participant: No New Discharge Prescriptions: New HYDROcodone/APAP 5-325MG [Kin[place] 5-325] 1 - 2 tab PO Q4-6H PRN #90 tab PRN Reason: Pain Sennosides [Senokot] 1 tab PO BID #60 tablet No Action Tamsulosin [Flomax] 0.4 mg PO BID Simvastatin [Zocor] 40 mg PO HS Hydrochlorothiazide [Hydrodiuril] 25 mg PO BID glyBURIDE/METFORMIN HCL [Glucovance 5-500 mg Tablet] 1 tab PO QID Lisinopril [Zestril] 2.5 mg PO QAM Loratadine [Claritin] 10 mg PO DAILY PRN PRN Reason: Allergy Symptoms Rivaroxaban [Xarelto] 15 mg PO BID Multivitamins, Thera [Multivitamin (formulary)] 1 tab PO DAILY Insulin Glargine,Hum.rec.anlog [Basaglar Kwikpen U-100] 16 unit SQ HS Enoxaparin [Lovenox] 120 mg PO DAILY Polyethylene Glycol 3350 [Miralax] 17 gm PO DAILY Hydrocodone/Acetaminophen [[place] 5-325] 1 - 2 tab PO Q4HR PRN PRN Reason: Pain Discharge Medication List Hydrochlorothiazide [Hydrodiuril] 25 mg PO BID 11/26/16 [History] Lisinopril [Zestril] 2.5 mg PO QAM 11/26/16 [History] Loratadine [Claritin] 10 mg PO DAILY PRN 11/26/16 [History] Simvastatin [Zocor] 40 mg PO HS 11/26/16 [History] Tamsulosin [Flomax] 0.4 mg PO BID 11/26/16 [History] glyBURIDE/METFORMIN HCL [Glucovance 5-500 mg Tablet] 1 tab PO QID 11/26/16 [ History] Multivitamins, Thera [Multivitamin (formulary)] 1 tab PO DAILY 08/20/17 [History ] Rivaroxaban [Xarelto] 15 mg PO BID 08/20/17 [History] Enoxaparin [Lovenox] 120 mg PO DAILY 09/15/17 [History] Insulin Glargine,Hum.rec.anlog [Basaglar Kwikpen U-100] 16 unit SQ HS 09/15/17 [ History] Polyethylene Glycol 3350 [Miralax] 17 gm PO DAILY 09/15/17 [History] Hydrocodone/Acetaminophen [[place] 5-325] 1 - 2 tab PO Q4HR PRN 09/23/17 [History] HYDROcodone/APAP 5-325MG [[place] 5-325] 1 - 2 tab PO Q4-6H PRN #90 tab 09/26/17 [ Rx] Sennosides [Senokot] 1 tab PO BID #60 tablet 09/26/17 [Rx] Follow up Appointment(s)/Referral(s): Leonard Larkin MD [Primary Care Provider] - 1 Week Rhys Carter DO [Doctor of Osteopathic Medicine] - 10/10/17 2:00 pm Ambulatory/Diagnostic Orders: Continuous Passive Motion (CPM) Machine [DME.AMB1] Time Frame: 3 Weeks, Location : Determined By Patient Activity/Diet/Wound Care/Special Instructions: Weightbearing as tolerated with a walker CPM 5-6h daily Leave dressing intact. May be removed by home care nurse in 10-14 days. May shower with dressing on. [facility] with questions or concerns [phone] Discharge Disposition: TRANSFER TO SNF/ECF
[2017-09-26 11:08] LABS: Glucose,Whole Blood 184 mg/dL (75-99)
[2017-09-26] MEDS: HYDROcodone/APAP 5-325MG 1 EACH TAB PO PRN (13:44)
[2017-09-26 14:33] VITALS: BP 110/55; PULSE 99; RESP 16; TEMP 97.6
--- NOTE | 2017-09-26 15:06 | CDI ---
Last Revision, June 2017 Documentation Clarification Form Date: 09/26/2017 From: Radha Irving Admit Date: 09/23/2017 11:05:00 AM Patient Name: Chris Castano Visit Number: [id number] Discharge Date: ATTENTION: The Clinical Documentation Specialists (CDI) and [facility] Coding Staff appreciate your assistance in clarifying documentation. Please respond to the clarification below the line at the bottom and electronically sign. The CDI & [facility] Coding staff will review the response and follow-up if needed. Please note: Queries are made part of the Legal Health Record. If you have any questions, please contact the author of this message via ITS. Dr. Nilsa Islas: Patient has been described as obese per the 09/24 medical management consultation with a documented BMI of 44.2 per nursing. History/Risk Factors: Osteoarthritis multiple joints, EMILIANO requiring CPAP, Hypertension w/hypertensive cardiovascular disease, GERD, CKD stage III, DM II & previous total knee with infection requiring removal of components & placement of antibiotic spacer. Per the consult: DM type II with Hyperglycemia and "complications" nos with insulin adjustments, accu checks & Hgb A1C ordered. Clinical Indicators: Patients weight is 122.47 kg Patients height is 5 foot 5 inches Calculated BMI is 44.2 Glucose 173 - 358 - 236 - 184. Hgb A1c 7.8 Treatments: IV Filaudid, IV Zofran, IV Kefzol, Insulin sq, po Glipizide, IV Ms. Nursin person assist. In order to capture the severity of condition associated with patient BMI of 44.2, a clinical diagnoses needs to be documented by the physician. Please clarify: Morbidly obese Other, please specify Unable to determine *Please include any complications due to the patient's diagnosis of obesity and clinical significance. Please continue to document in your progress notes and discharge summary in order to capture severity of illness and risk of mortality. Include clinical findings that support your diagnosis. MTDD
--- NOTE | 2017-09-26 15:32 | P.PN ---
Subjective Progress Note Date: 09/25/17 This is a pleasant 82-year-old gentleman patient of Dr. Larkin, he has underlying history of hypertension, hyperlipidemia, Lucy vascular disease, obstructive sleep apnea, diabetes mellitus type 2, and obstructive sleep apnea, who underwent a right total knee revision stage II on 09/23/2017. He had initially a right total knee arthroplasty in 2008, and This got infected and treated from 11/26/2016, stage I revision required antibiotic spacer secondary to the infected right total knee arthroplasty. He was followed by infectious disease, prior to the current revision. Patient denies any Clostridium difficile A, culture in 11/27/2016 was growing MSSA from the right knee The patient denies any chest pain shortness of breath difficulty breathing, patient denies any recent falls, no melena and hematochezia, postoperative deep patient is stable without any hypotensive events, hemoglobin of 10.3, creatinine of 1.53 albumin low at 3.2, 09/25: Patient's pain is currently well controlled. He has been working with physical therapy. Patient has been started on Xarelto for DVT prophylaxis. Patient is planning on [facility] for subacute rehab. Objective - Vital Signs Vital signs: Vital Signs Temp 97.6 F 09/25/17 07:46 Pulse 87 09/25/17 07:46 Resp 15 09/25/17 07:46 BP 121/66 09/25/17 07:46 Pulse Ox 97 09/25/17 07:46 Intake & Output 09/24/17 09/25/17 09/25/17 18:59 06:59 18:59 Intake Total 1000 240 Output Total 150 375 Balance 850 -375 240 Intake: IV 300 Sodium Chloride 0.9% 1, 300 000 ml @ 65 mls/hr IV . [id number] [facility] Rx#:[id number] Oral 700 240 Output: Urine 150 375 Other: Voiding Method Toilet Toilet Urinal Urinal # Voids 5 - Exam General appearance: cooperative - EENT Eyes: abnormal pupil, anicteric sclerae, no disc margins sharp, no edentulous, no EOMI, PERRLA, no fundus normal, no photophobia, no dentition normal, no poor dentition, no ptosis, no scleral icterus, no normal appearance ENT: NA/AT, normal oropharynx - Neck Neck: no lymphadenopathy, normal ROM, no other, no rigidity, no stridor, no thyromegaly - Respiratory Respiratory: bilateral: CTA, negative: diminished, dullness, rales, rhonchi - Cardiovascular Rhythm: regular Heart sounds: normal: S1, S2 Abnormal Heart Sounds: no systolic murmur, no diastolic murmur, no rub, no S3 Gallop, no S4 Gallop, no click, no other - Gastrointestinal General gastrointestinal: normal bowel sounds, soft - Integumentary Integumentary: normal, normal turgor - Neurologic Neurologic: CNII-XII intact - Musculoskeletal Musculoskeletal: gait normal, strength equal bilaterally - Psychiatric Psychiatric: A&O x's 3, appropriate affect, intact judgment & insight - Labs CBC & Chem 7: 09/26/17 07:15 09/26/17 07:15 Labs: Abnormal Lab Results - Last 24 Hours (Table) 09/24/17 09/24/17 09/25/17 Range/Units 07:37 20:02 06:33 RBC (4.30-5.90) m/uL Hgb (13.0-17.5) gm/dL Hct (39.0-53.0) % BUN 26 H (9-20) mg/dL Creatinine 1.36 H (0.66-1.25) mg/dL Glucose 104 H (74-99) mg/dL POC Glucose (mg/dL) 119 H (75-99) mg/dL Hemoglobin A1c 7.8 H (4.0-6.0) % Total Protein 5.7 L (6.3-8.2) g/dL Albumin 3.3 L (3.5-5.0) g/dL 09/25/17 09/25/17 09/25/17 Range/Units 06:33 07:11 11:26 RBC 3.27 L (4.30-5.90) m/uL Hgb 10.3 L (13.0-17.5) gm/dL Hct 30.6 L (39.0-53.0) % BUN (9-20) mg/dL Creatinine (0.66-1.25) mg/dL Glucose (74-99) mg/dL POC Glucose (mg/dL) 103 H 131 H (75-99) mg/dL Hemoglobin A1c (4.0-6.0) % Total Protein (6.3-8.2) g/dL Albumin (3.5-5.0) g/dL Microbiology - Last 24 Hours (Table) 09/23/17 14:08 Gram Stain - Preliminary Knee - Right Wound Culture - Preliminary 09/23/17 14:08 Gram Stain - Preliminary Knee - Right Wound Culture - Preliminary Assessment and Plan Plan: 1. Right total knee revision stage II performed 09/23/2017 for a previous right total knee arthroplasty 2008 and septic knee last November 2016 treated adequately and was followed by Dr. Hernandez infectious disease, comes in for the stage II revision patient currently is in the orthopedic floor receiving therapies, incentive spirometry, opiates for pain control, and several toe for DVT prophylaxis. He was given one-time dose of Lovenox last night, he did have 2 previous provoked episode off DVT in the past. Pain control was with on- Q and opiates 2. Previous history of DVT x2 , provoked both by orthopedic surgery procedures , patient will be receiving Advdpx), at least 4 weeks especially if prolonged recovery expected for ambulation 3. Diabetes mellitus type 2 with hyperglycemia and complications,, on Levemir 16 units at bedtime, and Glucovance 5/500 one tab 4 times a day hemoglobin A1c to be obtained, Accu-Cheks with NovoLog correctional scale 4. Hypertension and hypertensive cardiovascular disease. We will continue patient on lisinopril 2.5 mg orally once every day, hold on HCTZ. Till hemodynamics are stabilized 5. BPH without lower in the tract symptomatology, patient is started on Flomax 0.4 mg twice a day, monitor for postobstructive uropathy, patient is not on any folic acid or 6. Hyperlipidemia. Continue Lipitor 20 mg orally once every day. 7. GERD. 8. Obesity with obstructive sleep apnea. Continue CPAP. 9. DVT prophylaxis. Patient will be started on the Xarelto 10 mg daily 10. CKD stage III with acute kidney injury. Continue gentle hydration, repeat renal function in the morning. 11 moderate hypoalbuminemia, albumin is 3.2 BMI 44 Debility, PT OT, possible subacute against home rehabilitation Discharge plan: [facility] tomorrow Impression and plan of care have been directed as dictated by the signing physician. Augustina Washington nurse practitioner acting as scribe for signing physician.
--- NOTE | 2017-09-26 15:35 | P.PN ---
Subjective Progress Note Date: 09/26/17 This is a pleasant 82-year-old gentleman patient of Dr. Larkin, he has underlying history of hypertension, hyperlipidemia, Lucy vascular disease, obstructive sleep apnea, diabetes mellitus type 2, and obstructive sleep apnea, who underwent a right total knee revision stage II on 09/23/2017. He had initially a right total knee arthroplasty in 2008, and This got infected and treated from 11/26/2016, stage I revision required antibiotic spacer secondary to the infected right total knee arthroplasty. He was followed by infectious disease, prior to the current revision. Patient denies any Clostridium difficile A, culture in 11/27/2016 was growing MSSA from the right knee The patient denies any chest pain shortness of breath difficulty breathing, patient denies any recent falls, no melena and hematochezia, postoperative deep patient is stable without any hypotensive events, hemoglobin of 10.3, creatinine of 1.53 albumin low at 3.2, This is a pleasant 82-year-old gentleman patient of Dr. Larkin, he has underlying history of hypertension, hyperlipidemia, Lucy vascular disease, obstructive sleep apnea, diabetes mellitus type 2, and obstructive sleep apnea, who underwent a right total knee revision stage II on 09/23/2017. He had initially a right total knee arthroplasty in 2008, and This got infected and treated from 11/26/2016, stage I revision required antibiotic spacer secondary to the infected right total knee arthroplasty. He was followed by infectious disease, prior to the current revision. Patient denies any Clostridium difficile A, culture in 11/27/2016 was growing MSSA from the right knee The patient denies any chest pain shortness of breath difficulty breathing, patient denies any recent falls, no melena and hematochezia, postoperative deep patient is stable without any hypotensive events, hemoglobin of 10.3, creatinine of 1.53 albumin low at 3.2, 09/25: Patient's pain is currently well controlled. He has been working with physical therapy. Patient has been started on Xarelto for DVT prophylaxis. Patient is planning on [facility] for subacute rehab. 09/26: Patient is scheduled for discharge to [facility] today medication reconciliation has Been completed. Patient will be on Xarelto for DVT prophylaxis. Lasix and potassium has been added. His hemoglobin today is at 10.4. Patient will be followed at the retirement by Dr. Larkin. Objective - Vital Signs Vital signs: Vital Signs Temp 98.6 F 09/26/17 06:51 Pulse 90 09/26/17 06:51 Resp 14 09/26/17 06:51 BP 119/63 09/26/17 06:51 Pulse Ox 96 09/26/17 06:51 Intake & Output 09/25/17 09/26/17 09/26/17 18:59 06:59 18:59 Intake Total 480 590 180 Output Total 700 600 Balance 480 -110 -420 Intake: Oral 480 590 180 Output: Urine 700 600 Other: Voiding Method Toilet Toilet Urinal Urinal # Voids 2 3 2 # Bowel Movements 1 - Exam General appearance: cooperative - EENT Eyes: abnormal pupil, anicteric sclerae, no disc margins sharp, no edentulous, no EOMI, PERRLA, no fundus normal, no photophobia, no dentition normal, no poor dentition, no ptosis, no scleral icterus, no normal appearance ENT: NA/AT, normal oropharynx - Neck Neck: no lymphadenopathy, normal ROM, no other, no rigidity, no stridor, no thyromegaly - Respiratory Respiratory: bilateral: CTA, negative: diminished, dullness, rales, rhonchi - Cardiovascular Rhythm: regular Heart sounds: normal: S1, S2 Abnormal Heart Sounds: no systolic murmur, no diastolic murmur, no rub, no S3 Gallop, no S4 Gallop, no click, no other - Gastrointestinal General gastrointestinal: normal bowel sounds, soft - Integumentary Integumentary: normal, normal turgor - Neurologic Neurologic: CNII-XII intact - Musculoskeletal Musculoskeletal: gait normal, strength equal bilaterally - Psychiatric Psychiatric: A&O x's 3, appropriate affect, intact judgment & insight - Labs CBC & Chem 7: 09/26/17 07:15 09/26/17 07:15 Labs: Abnormal Lab Results - Last 24 Hours (Table) 09/25/17 09/25/17 09/26/17 Range/Units 17:25 21:07 07:15 RBC 3.36 L (4.30-5.90) m/uL Hgb 10.4 L (13.0-17.5) gm/dL Hct 31.0 L (39.0-53.0) % POC Glucose (mg/dL) 123 H 167 H (75-99) mg/dL 09/26/17 Range/Units 11:04 RBC (4.30-5.90) m/uL Hgb (13.0-17.5) gm/dL Hct (39.0-53.0) % POC Glucose (mg/dL) 184 H (75-99) mg/dL Microbiology - Last 24 Hours (Table) 09/23/17 14:08 Anaerobic Culture - Preliminary Knee - Right 09/23/17 14:08 Anaerobic Culture - Preliminary Knee - Right 09/23/17 14:08 Gram Stain - Final Knee - Right Wound Culture - Final 09/23/17 14:08 Gram Stain - Final Knee - Right Wound Culture - Final Assessment and Plan Plan: 1. Right total knee revision stage II performed 09/23/2017 for a previous right total knee arthroplasty 2008 and septic knee last November 2016 treated adequately and was followed by Dr. Hernandez infectious disease, comes in for the stage II revision patient currently is in the orthopedic floor receiving therapies, incentive spirometry, opiates for pain control, and several toe for DVT prophylaxis. Patient will be discharged on higher dose of Xarelto per Dr. Larkin's request. 2. Previous history of DVT x2 , provoked both by orthopedic surgery procedures 3. Diabetes mellitus type 2 with hyperglycemia and complications,, on Levemir 16 units at bedtime, and Glucovance 5/500 one tab 4 times a day hemoglobin A1c to be obtained, Accu-Cheks with NovoLog correctional scale 4. Hypertension and hypertensive cardiovascular disease. We will continue patient on lisinopril 2.5 mg orally once every day, hold on HCTZ. Till hemodynamics are stabilized 5. BPH without lower in the tract symptomatology, patient is started on Flomax 0.4 mg twice a day, monitor for postobstructive uropathy, patient is not on any folic acid or 6. Hyperlipidemia. Continue Lipitor 20 mg orally once every day. 7. GERD. 8. Obesity with obstructive sleep apnea. Continue CPAP. 9. DVT prophylaxis. Patient will be started on the Xarelto 10 mg daily 10. CKD stage III with acute kidney injury. Continue gentle hydration, repeat renal function in the morning. 11 moderate hypoalbuminemia, albumin is 3.2 BMI 44 with noted morbid obesity Debility, PT OT, possible subacute against home rehabilitation Discharge plan: [facility] Impression and plan of care have been directed as dictated by the signing physician. Augustina Washington nurse practitioner acting as scribe for signing physician.
== END 2017-09-26 15:00 | DRG 467 ==
LOC: 2ORMAIN 11:05 → 3SUR 18:35
PROVIDERS: ADMIT Orthopaedic Surgery; ATTEND Orthopaedic Surgery
PROC: 0SRC069 Replacement of Right Knee Joint with Oxidized Zirconium on Polyethylene Synthetic Substitute, Cemented, Open Approach (ICD-10-PCS; principal; 2017-09-23 13:00)
PROC: 0SPC0JZ Removal of Synthetic Substitute from Right Knee Joint, Open Approach (ICD-10-PCS; principal; 2017-09-23 13:00)
DX: Z47.33 Aftercare following explantation of knee joint prosthesis (principal); Z68.41 Body mass index [BMI] 40.0-44.9, adult; E11.22 Type 2 diabetes mellitus with diabetic chronic kidney disease; E11.65 Type 2 diabetes mellitus with hyperglycemia; E88.09 Other disorders of plasma-protein metabolism, not elsewhere classified; E78.5 Hyperlipidemia, unspecified; G47.33 Obstructive sleep apnea (adult) (pediatric); K21.9 Gastro-esophageal reflux disease without esophagitis; M17.11 Unilateral primary osteoarthritis, right knee; Z96.1 Presence of intraocular lens; N18.3 Chronic kidney disease, stage 3 (moderate); I13.10 Hypertensive heart and chronic kidney disease without heart failure, with stage 1 through stage 4 chronic kidney disease, or unspecified chronic kidney disease; Z86.718 Personal history of other venous thrombosis and embolism; Z79.899 Other long term (current) drug therapy; Z82.49 Family history of ischemic heart disease and other diseases of the circulatory system; Z83.3 Family history of diabetes mellitus; Z79.01 Long term (current) use of anticoagulants; Z79.84 Long term (current) use of oral hypoglycemic drugs; Z80.3 Family history of malignant neoplasm of breast; Z82.0 Family history of epilepsy and other diseases of the nervous system; Z99.3 Dependence on wheelchair; E66.01 Morbid (severe) obesity due to excess calories
CPT/HCPCS: 80048; 80053; 82550; 83036; 84132; 85025; 87070; 87075; 87205; 88305; 88331

== ENCOUNTER → 2018-05-01 | Outpatient (CLI) | payer MEDICARE ==
--- NOTE | 2018-05-01 12:19 | US ---
EXAMINATION TYPE: US venous doppler duplex LE RT DATE OF EXAM: 05/01/2018 12:09 PM COMPARISON: 03/30 CLINICAL HISTORY: I80.9 Phlebitis and thrombophlebitis of unspecifie. pt have prev rt leg dvt; has be en off thinners since January; rt leg pain and swelling SIDE PERFORMED: right TECHNIQUE: The lower extremity deep venous system is examined utilizing real time linear array sonog maribel with graded compression, doppler sonography and color-flow sonography. VESSELS IMAGED: External Iliac Vein (EIV) Common Femoral Vein Deep Femoral Vein Greater Saphenous Vein * Femoral Vein Popliteal Vein Small Saphenous Vein * Proximal Calf Veins (* superficial vessels) Right Leg: incomplete compression of the right fem vn to pop vns with smaller in size vessels, good color flow otherwise ?chronic changes v new dvt? IMPRESSION: Findings suggest chronic DVT although acute DVT is difficult to exclude. Correlate clinic ally.
== END | disposition home or self-care (01) ==
LOC: RADUSWWP 11:41
PROVIDERS: ATTEND Orthopaedic Surgery
DX: I80.9 Phlebitis and thrombophlebitis of unspecified site (principal)

== ENCOUNTER 2020-08-30 00:15 | Inpatient (IN) | payer MEDICARE ==
[2020-08-30] MEDS ORDERED: SODIUM CHLORIDE 0.9% 1,000 ML IV STA (00:23)
[2020-08-30 00:45] LABS: Basophils % (A) 0 %; Eosinophils # (A) 0.1 k/uL (0-0.7); Eosinophils % (A) 1 %; HCT 39.1 % (39.0-53.0); HGB 12.5 gm/dL (13.0-17.5); Lymphocytes # (A) 0.5 k/uL (1.0-4.8); Lymphocytes % (A) 5 %; MCH 31.4 pg (25.0-35.0); MCHC 32.1 g/dL (31.0-37.0); MCV 97.7 fL (80.0-100.0); Mean Platelet Volume 7.1; Monocytes # (A) 0.4 k/uL (0-1.0); Monocytes % (A) 4 %; Neutrophils # (A) 8.9 k/uL (1.3-7.7); Neutrophils % (A) 90 %; Platelet Count 168 k/uL (150-450); RDW 13.4 % (11.5-15.5); WBC 9.9 k/uL (3.8-10.6)
[2020-08-30 00:55] LABS: Albumin 3.8 g/dL (3.5-5.0); Calcium 9.1 mg/dL (8.4-10.2); Potassium 4.3 mmol/L (3.5-5.1); Total Bilirubin 2.5 mg/dL (0.2-1.3); Total Protein 6.7 g/dL (6.3-8.2)
[2020-08-30 01:12] LABS: Partial Thromboplastin Time 21.4 sec (22.0-30.0)
[2020-08-30] MEDS ORDERED: SODIUM CHLORIDE 0.9% 1,000 ML IV ONE ×2 (01:15→10:11)
--- NOTE | 2020-08-30 01:27 | XR ---
EXAM: XR Chest, 1 View CLINICAL HISTORY: [email or web address] XR Reason: Weakness TECHNIQUE: Frontal view of the chest. COMPARISON: Prior CT abdomen pelvis 02/11/20 FINDINGS: Lungs: Low lung volumes. Mild left basilar atelectasis. Pleural space: Unremarkable. No pneumothorax. Heart: Stable cardiomediastinal contour as partially seen on the prior CT. Somewhat rounded right paraspinal opacity at the T8-9 levels appear similar to the CT auto parker image. Mediastinum: See above. Bones/joints: Unremarkable. IMPRESSION: Low lung volumes. Mild left basilar atelectasis.
--- NOTE | 2020-08-30 01:33 | XR ---
EXAM: XR Right Hip With Pelvis When Performed, 2 or 3 Views CLINICAL HISTORY: [email or web address] XR Reason: fall TECHNIQUE: Two or three views of the right hip with pelvis when performed. COMPARISON: Prior CT abdomen from 02/11/2020 FINDINGS: Bones/joints: Unremarkable. No acute fracture. No dislocation. Soft tissues: Unremarkable. IMPRESSION: No evidence of acute fracture or dislocation.
[2020-08-30] MEDS ORDERED: MORPHINE SULFATE 4 MG/ML SYRINGE IVP STA (01:37)
--- NOTE | 2020-08-30 01:37 | XR ---
EXAM: XR Right Knee, 3 Views CLINICAL HISTORY: [email or web address] XR Reason: fall TECHNIQUE: Three views of the right knee. COMPARISON: Prior study 09/23/2017. FINDINGS: Bones/joints: Right knee revision prosthesis, as on the prior. Alignment appears anatomic. Hardware appears intact. No periprosthetic lucency. No acute fracture. Soft tissues: Unremarkable. Vasculature: Vascular calcifications. IMPRESSION: Right knee revision prosthesis. No evidence of acute abnormality.
--- NOTE | 2020-08-30 01:42 | ED ---
General Adult HPI - General Chief complaint: Weakness Stated complaint: Fall Time Seen by Provider: 08/30/20 00:16 Source: patient, family, EMS Mode of arrival: EMS Limitations: no limitations - History of Present Illness Initial comments: 85yo male with extensive PMH presneting for fall and generalized weakness. patient states that he has been feeling more weak than usual for the past week, he states that every morning when he goes to get out of bed he experiences RLQ abdominal pain. Denies pain in the abdomen currently. Patient states he has had numerous hernias/repairs, denies diarrhea, constipation, nausea, or vomiting. Patient states that in addition to the abdominal pain he has felt short of breath from time to time, increased from his daily dyspnea. Pt denies leg swelling, calf pain, hemoptysis, denies anticoagulation use. Patient denies cough, fevers, chest pian or pressure, denies jaw or back pain. patient states that today prior to arrival in the ER he was walking and just felt so weak, he tried to turn and his knww wouldnt and it twisted, he states he fell but caught himself with his hands. Denies head injury, abdominal trauma, trauma to chest. Admits to right hip pain, right knee pain. Denies low back pain or left LE pain> patient denies wrist or UE pain. Patient is very pleasant on arrival, yet very [place]. Patient appears in no distress, HR and glucose noted to be elevated. - Related Data Home Medications Medication Instructions Recorded Confirmed Loratadine [Claritin] 10 mg PO DAILY PRN 11/26/16 09/23/17 Simvastatin [Zocor] 40 mg PO HS 11/26/16 09/23/17 Tamsulosin [Flomax] 0.4 mg PO BID 11/26/16 09/23/17 lisinopriL [Zestril] 2.5 mg PO QAM 11/26/16 09/23/17 Multivitamins, Thera [Multivitamin 1 tab PO DAILY 08/20/17 09/23/17 (formulary)] Insulin Glargine,Hum.rec.anlog 16 unit SQ HS 09/15/17 09/23/17 [Basaglar Kwikpen U-100] polyethylene glycoL 3350 [Miralax] 17 gm PO DAILY 09/15/17 09/23/17 Previous Rx's Medication Instructions Recorded Furosemide [Lasix] 20 mg PO DAILY #30 tab 09/26/17 HYDROcodone/APAP 5-325MG [Molt 1 - 2 tab PO Q4-6H PRN #90 tab 09/26/17 5-325] INSULIN ASPART (NovoLOG) [NovoLOG 0 unit SQ ACHS vial 09/26/17 (formulary)] Potassium Chloride ER [K-Dur 10] 10 meq PO DAILY #30 tab 09/26/17 Rivaroxaban [Xarelto] 15 mg PO DAILY #30 tab 09/26/17 Sennosides [Senokot] 1 tab PO BID #60 tablet 09/26/17 glipiZIDE [Glucotrol] 10 mg PO QID tab 09/26/17 hydroCHLOROthiazide [Hydrodiuril] 25 mg PO BID #0 09/26/17 metFORMIN HCL [Glucophage] 500 mg PO QID tab 09/26/17 Allergies Allergy/AdvReac Type Severity Reaction Status Date / Time No Known Allergies Allergy Verified 09/23/17 19:19 Review of Systems ROS Statement: Those systems with pertinent positive or pertinent negative responses have been documented in the HPI. ROS Other: All systems not noted in ROS Statement are negative. Past Medical History Past Medical History: Diabetes Mellitus, GERD/Reflux, Hyperlipidemia, Hypertension, Osteoarthritis (OA), Prostate Disorder, Sleep Apnea/CPAP/BIPAP Additional Past Medical History / Comment(s): diverticulosis, hemmorhoids, constopation, varicose veins, ulcers History of Any Multi-Drug Resistant Organisms: None Reported Additional Past Surgical History / Comment(s): rt knee arthroscopy, tressa total knee replacments, egd/colonoscopy, tressa cataracts-lens implants, rt ing hernia, umb hernia,ventral hernia, exp lap -repair of perforated ulcer Past Anesthesia/Blood Transfusion Reactions: No Reported Reaction Past Psychological History: Depression Past Alcohol Use History: Rare Past Drug Use History: None Reported - Past Family History Mother Family Medical History: Diabetes Mellitus Additional Family Medical History / Comment(s): Mother at age 83 from complications from diabetes. Father Family Medical History: Coronary Artery Disease (CAD) Additional Family Medical History / Comment(s): Father at age 93 and only history was pacemaker implantation at age 93. Brother(s) History Unknown: Yes Additional Family Medical History / Comment(s): Patient was 1 brother that at age 77 with history of Alzheimer's disease and Parkinson's. Sister(s) Family Medical History: Cancer Additional Family Medical History / Comment(s): 2 SISTERS HAD BREAST CANCER Son(s) Additional Family Medical History / Comment(s): Patient has 2 sons and 5 daughters. One daughter from breast cancer at age 27. Other children have no major medical problems. Daughter(s) Family Medical History: Cancer Additional Family Medical History / Comment(s): BREAST CANCER AT 27, SURVIVED FOR 5 YEARS. General Exam - General Exam Comments Initial Comments: General: The patient is awake and alert, in no distress Eye: +3 mm pupils are equal, round and reactive to light, extra-ocular movements are intact. No nystagmus. There is normal conjunctiva bilaterally. No signs of icterus. Ears, nose, mouth and throat: There are moist mucous membranes and no oral lesions. EAC/TM WNL b/l. Neck: The neck is supple, there is no tenderness or JVD. Cardiovascular: There is a regular rate and rhythm. No murmur, rub or gallop is appreciated. Respiratory: Lungs are clear to auscultation, respirations are non-labored, breath sounds are equal. No wheezes, stridor, rales, or rhonchi. Gastrointestinal: On inspection numerous soft reducible midline incisional herniaas. Soft, non-distended, no significant tenderness to palpation of the abdomen, abdomen without masses or organomegaly noted. There is no rebound or guarding present. No CVA tenderness. Bowel sounds are unremarkable. Musculoskeletal: Mild right knee swelling in comparision of the left.Normal ROM of the hips, knees and ankles, pain with ROM of right hip and knee. Strength 5/5. Sensation intact. extensor mechanism intact. Radial and DP pulses equal bilaterally 2+. Neurological: A&O x 3. CN II-XII intact, There are no obvious motor or sensory deficits. Coordination appears grossly intact. Speech is normal. Skin: Skin is warm and dry and no rashes or lesions are noted. NO raccoon, no davies sign. Psychiatric: Cooperative, appropriate mood & affect, normal judgment. Limitations: no limitations Course Vital Signs 08/30/20 08/30/20 00:20 02:24 Temperature 99.5 F 98.6 F Pulse Rate 125 H 107 H Respiratory 18 20 Rate Blood Pressure 112/60 105/64 O2 Sat by Pulse 95 94 L Oximetry Medical Decision Making - Medical Decision Making 85yo male presenting for fall due to generalized weakness. pt complains of daily RLQ pain when waking up that resolves. no current pain. abdomen soft minimal tenderness, denies diarrhea, vomiting. Pt statse he has daily SOB, slight increase, no chest pain. Troponin elevated. CXR overall no acute process. Patietn CTA no PE. Patient lungs clear. Patient has no leg swelling. Patient has some elevation of biliary enzymes no RUQ tenderness, no fevers, CT no biliary findings. Patient appears dry, will be hydrated, troponin will be trended and patient will be admitted for further monitoring/cardiology and GI consultation. Dr. Elder agreeable to care plan and admission. - Lab Data Result diagrams: 08/30/20 00:35 08/30/20 00:35 Lab Results 08/30/20 08/30/20 08/30/20 Range/Units 00:35 00:35 00:35 WBC 9.9 (3.8-10.6) k/uL RBC 4.00 L (4.30-5.90) m/uL Hgb 12.5 L (13.0-17.5) gm/dL Hct 39.1 (39.0-53.0) % MCV 97.7 (80.0-100.0) fL MCH 31.4 (25.0-35.0) pg MCHC 32.1 (31.0-37.0) g/dL RDW 13.4 (11.5-15.5) % Plt Count 168 (150-450) k/uL MPV 7.1 Neutrophils % 90 % Lymphocytes % 5 % Monocytes % 4 % Eosinophils % 1 % Basophils % 0 % Neutrophils # 8.9 H (1.3-7.7) k/uL Lymphocytes # 0.5 L (1.0-4.8) k/uL Monocytes # 0.4 (0-1.0) k/uL Eosinophils # 0.1 (0-0.7) k/uL Basophils # 0.0 (0-0.2) k/uL PT 11.0 (9.0-12.0) sec INR 1.0 (<1.2) APTT 21.4 L (22.0-30.0) sec Sodium 136 L (137-145) mmol/L Potassium 4.3 (3.5-5.1) mmol/L Chloride 102 (98-107) mmol/L Carbon Dioxide 21 L (22-30) mmol/L Anion Gap 13 mmol/L BUN 18 (9-20) mg/dL Creatinine 1.48 H (0.66-1.25) mg/dL Est GFR (CKD-EPI)AfAm 49 (>60 ml/min/1.73 sqM) Est GFR (CKD-EPI)NonAf 42 (>60 ml/min/1.73 sqM) Glucose 288 H (74-99) mg/dL Lactic Ac Sepsis Rflx Plasma Lactic Acid Romeo (0.7-2.0) mmol/L Calcium 9.1 (8.4-10.2) mg/dL Total Bilirubin 2.5 H (0.2-1.3) mg/dL AST 359 H (17-59) U/L ALT 236 H (4-49) U/L Alkaline Phosphatase 124 (38-126) U/L Troponin I (0.000-0.034) ng/mL Total Protein 6.7 (6.3-8.2) g/dL Albumin 3.8 (3.5-5.0) g/dL Urine Color Urine Appearance (Clear) Urine pH (5.0-8.0) Ur Specific [place] (1.001-1.035) Urine Protein (Negative) Urine Glucose (UA) (Negative) Urine Ketones (Negative) Urine Blood (Negative) Urine Nitrite (Negative) Urine Bilirubin (Negative) Urine Urobilinogen (<2.0) mg/dL Ur Leukocyte Esterase (Negative) Urine WBC (0-5) /hpf Ur Squamous Epith Cells (0-4) /hpf 08/30/20 08/30/20 08/30/20 Range/Units 00:35 00:35 01:01 WBC (3.8-10.6) k/uL RBC (4.30-5.90) m/uL Hgb (13.0-17.5) gm/dL Hct (39.0-53.0) % MCV (80.0-100.0) fL MCH (25.0-35.0) pg MCHC (31.0-37.0) g/dL RDW (11.5-15.5) % Plt Count (150-450) k/uL MPV Neutrophils % % Lymphocytes % % Monocytes % % Eosinophils % % Basophils % % Neutrophils # (1.3-7.7) k/uL Lymphocytes # (1.0-4.8) k/uL Monocytes # (0-1.0) k/uL Eosinophils # (0-0.7) k/uL Basophils # (0-0.2) k/uL PT (9.0-12.0) sec INR (<1.2) APTT (22.0-30.0) sec Sodium (137-145) mmol/L Potassium (3.5-5.1) mmol/L Chloride (98-107) mmol/L Carbon Dioxide (22-30) mmol/L Anion Gap mmol/L BUN (9-20) mg/dL Creatinine (0.66-1.25) mg/dL Est GFR (CKD-EPI)AfAm (>60 ml/min/1.73 sqM) Est GFR (CKD-EPI)NonAf (>60 ml/min/1.73 sqM) Glucose (74-99) mg/dL Lactic Ac Sepsis Rflx Y Plasma Lactic Acid Romeo 4.3 H* (0.7-2.0) mmol/L Calcium (8.4-10.2) mg/dL Total Bilirubin (0.2-1.3) mg/dL AST (17-59) U/L ALT (4-49) U/L Alkaline Phosphatase (38-126) U/L Troponin I 0.061 H* (0.000-0.034) ng/mL Total Protein (6.3-8.2) g/dL Albumin (3.5-5.0) g/dL Urine Color Urine Appearance (Clear) Urine pH (5.0-8.0) Ur Specific [place] (1.001-1.035) Urine Protein (Negative) Urine Glucose (UA) (Negative) Urine Ketones (Negative) Urine Blood (Negative) Urine Nitrite (Negative) Urine Bilirubin (Negative) Urine Urobilinogen (<2.0) mg/dL Ur Leukocyte Esterase (Negative) Urine WBC (0-5) /hpf Ur Squamous Epith Cells (0-4) /hpf 08/30/20 Range/Units 02:21 WBC (3.8-10.6) k/uL RBC (4.30-5.90) m/uL Hgb (13.0-17.5) gm/dL Hct (39.0-53.0) % MCV (80.0-100.0) fL MCH (25.0-35.0) pg MCHC (31.0-37.0) g/dL RDW (11.5-15.5) % Plt Count (150-450) k/uL MPV Neutrophils % % Lymphocytes % % Monocytes % % Eosinophils % % Basophils % % Neutrophils # (1.3-7.7) k/uL Lymphocytes # (1.0-4.8) k/uL Monocytes # (0-1.0) k/uL Eosinophils # (0-0.7) k/uL Basophils # (0-0.2) k/uL PT (9.0-12.0) sec INR (<1.2) APTT (22.0-30.0) sec Sodium (137-145) mmol/L Potassium (3.5-5.1) mmol/L Chloride (98-107) mmol/L Carbon Dioxide (22-30) mmol/L Anion Gap mmol/L BUN (9-20) mg/dL Creatinine (0.66-1.25) mg/dL Est GFR (CKD-EPI)AfAm (>60 ml/min/1.73 sqM) Est GFR (CKD-EPI)NonAf (>60 ml/min/1.73 sqM) Glucose (74-99) mg/dL Lactic Ac Sepsis Rflx Plasma Lactic Acid Romeo (0.7-2.0) mmol/L Calcium (8.4-10.2) mg/dL Total Bilirubin (0.2-1.3) mg/dL AST (17-59) U/L ALT (4-49) U/L Alkaline Phosphatase (38-126) U/L Troponin I (0.000-0.034) ng/mL Total Protein (6.3-8.2) g/dL Albumin (3.5-5.0) g/dL Urine Color Yellow Urine Appearance Clear (Clear) Urine pH 5.5 (5.0-8.0) Ur Specific [place] 1.025 (1.001-1.035) Urine Protein Trace H (Negative) Urine Glucose (UA) 4+ H (Negative) Urine Ketones 1+ H (Negative) Urine Blood Negative (Negative) Urine Nitrite Negative (Negative) Urine Bilirubin 1+ H (Negative) Urine Urobilinogen 4.0 (<2.0) mg/dL Ur Leukocyte Esterase Small H (Negative) Urine WBC 5 (0-5) /hpf Ur Squamous Epith Cells <1 (0-4) /hpf Disposition Clinical Impression: Mesenteric panniculitis, Troponin level elevated, Lactic acidosis, Generalized weakness, Dehydration Disposition: ADMITTED IP TO THIS [facility] Condition: Stable Is patient prescribed a controlled substance at d/c from ED?: No Referrals: Leonard Larkin MD [Primary Care Provider] - 1-2 days Time of Disposition: 03:06 Decision to Admit Reason: Admit from EC Decision Date: 08/30/20 Decision Time: 03:06
[2020-08-30] MEDS: SODIUM CHLORIDE 0.9% 1,000 ML IV SCH ×3 (01:45→16:38)
[2020-08-30 02:16] LABS: Appearance,Urine Clear (Clear); Bilirubin,Urine 1+ (Negative); Blood,Urine Negative (Negative); Color,Urine Yellow; Glucose,Urine (UA) 4+ (Negative); Ketones,Urine 1+ (Negative); Leukocyte Esterase,Urine Small (Negative); Nitrite,Urine Negative (Negative); PH, Urine 5.5 (5.0-8.0); Protein,Urine Trace (Negative); Specific Gravity,Urine 1.025 (1.001-1.035); Squamous Epithelial Cell,Urine <1 /hpf (0-4); WBC,Urine 5 /hpf (0-5)
--- NOTE | 2020-08-30 02:39 | CT ---
EXAM: CT Angiography Chest With Intravenous Contrast CLINICAL HISTORY: ITS.REASON CT Reason: dyspnea x weeks TECHNIQUE: Axial computed tomographic angiography images of the chest with intravenous contrast. CTDI is 51.21 mGy and DLP is 1894.6 mGy-cm. This CT exam was performed using one or more of the following dose reduction techniques: automated exposure control, adjustment of the mA and/or kV according to patient size, and/or use of iterative reconstruction technique. MIP reconstructed images were created and reviewed. COMPARISON: Prior chest x-ray today 08/30/20, and CT abdomen pelvis 02/11/20 FINDINGS: Pulmonary arteries: Breathing motion artifact limits evaluation for peripheral pulmonary emboli. No central pulmonary embolus. Enlarged pulmonary arteries likely reflects pulmonary arterial hypertension. Aorta: No acute findings. No thoracic aortic aneurysm. Lungs: Mild bibasilar atelectasis. Pleural space: Unremarkable. No significant effusion. No pneumothorax. Heart: Coronary calcifications. Mediastinum: Prominent mediastinal fat contributes to prominent cardiomediastinal contour. Small rounded paraspinal opacity on the chest x-ray/climatology teacher image at approximately T8, likely relates to posterior mediastinal structures, and a right pulmonary venous pericardial recess. Stable appearance since the prior CT abdomen and pelvis. No abnormal mass visualized. Bones/joints: No acute fracture. No dislocation. Soft tissues: Unremarkable. Lymph nodes: Unremarkable. No enlarged lymph nodes. Other findings: See CT abdomen pelvis for abdominal findings. IMPRESSION: 1. No central pulmonary embolus. Limited evaluation of peripheral vessels due to breathing motion artifact. 2. Enlarged pulmonary arteries likely reflects pulmonary arterial hypertension. 3. Mild basilar atelectasis. 4. Other incidental findings
--- NOTE | 2020-08-30 02:48 | CT ---
EXAM: CT Abdomen and Pelvis With Intravenous Contrast CLINICAL HISTORY: ITS.REASON CT Reason: abdominal pain, elevated lactic acid TECHNIQUE: Axial computed tomography images of the abdomen and pelvis with intravenous contrast. CTDI is 51.21 mGy and DLP is 1894.6 mGy-cm. This CT exam was performed using one or more of the following dose reduction techniques: automated exposure control, adjustment of the mA and/or kV according to patient size, and/or use of iterative reconstruction technique. COMPARISON: 02/11/20 FINDINGS: Limitations:Right lateral abdomen not fully included in the field-of- view. Lung bases: Unremarkable. No mass. No consolidation. ABDOMEN: Liver: Fatty liver. Gallbladder and bile ducts: Unremarkable. No calcified stones. No ductal dilation. Pancreas: Atrophic pancreas. No ductal dilation. Spleen: Unremarkable. No splenomegaly. Adrenals: Unremarkable. No mass. Kidneys and ureters: Small left renal cyst. No hydronephrosis. Stomach and bowel: Limited evaluation of the minimally or nondistended proximal to mid colon. No pneumatosis visualized. Colonic diverticulosis. No bowel obstruction. No mucosal thickening. PELVIS: Appendix: Normal appendix. Bladder: Unremarkable. No mass. Reproductive: Unremarkable as visualized. ABDOMEN and PELVIS: Intraperitoneal space: No free air. No significant fluid collection. Bones/joints: Degenerative changes of the spine. Mild anterolisthesis of L4 on 5. No acute fracture. No dislocation. Soft tissues: Small fat-containing ventral and umbilical hernias. No bowel involvement. Vasculature: Ectatic aorta with atherosclerotic calcifications. No abdominal aortic aneurysm. Lymph nodes: Minimal haziness of the mid abdominal mesentery with small nodes. Similar to the prior. IMPRESSION: 1. No evidence of bowel ischemia, although somewhat limited evaluation as above. 2. Colonic diverticulosis. 3. Minimal haziness of the mid abdominal mesentery with small nodes. Similar to the prior. May represent mesenteric panniculitis which can be idiopathic or associated with infectious/inflammatory or neoplastic processes.
[2020-08-30] MEDS ORDERED: PIPERACILLIN-TAZOBACTAM 3.375 GM in SODIUM CHLORIDE 0.9% 100 ML IVPB ONE (03:00)
[2020-08-30] MEDS ORDERED: NITROGLYCERIN SL TABS 0.4 MG TAB SUBLINGUAL PRN (03:00)
--- NOTE | 2020-08-30 08:59 | US ---
EXAMINATION TYPE: US gallbladder DATE OF EXAM: 08/30/2020 COMPARISON: NONE CLINICAL HISTORY: elevated LFTs, abdominal pain. EXAM MEASUREMENTS: Liver Length: 20.1 cm Gallbladder Wall: 0.8 cm CBD: 0.7 cm Right Kidney: 9.6 x 4.9 x 5.3 cm Pancreas: Obscured by bowel gas Liver: Increased attenuation, focal fatty sparing adjacent to gallbladder, enlarged Gallbladder: thickened wall, non shadowing stone in neck Evidence for sonographic Guerrero's sign: no CBD: dilated Right Kidney: Inferior pole obscured by overlying bowel gas IMPRESSION: 1. Correlate for acute cholecystitis.
[2020-08-30] MEDS ORDERED: HEPARIN SODIUM,PORCINE 5,000 UNIT/ML 1 ML VIAL IV ONE (10:11)
[2020-08-30] MEDS ORDERED: HEPARIN SODIUM,PORCINE 5,000 UNIT/ML 1 ML VIAL IV PRN ×2 (10:11→15:55)
[2020-08-30] MEDS ORDERED: SODIUM CHLORIDE 0.9% 500 ML 500 ML IV ONE (10:11)
[2020-08-30] MEDS ORDERED: HEPARIN SOD,PORK IN 0.45% NACL 25,000 UNIT in 0.45% NACL 1 250ML.BAG IV SCH (10:15)
[2020-08-30] MEDS: TAMSULOSIN 0.4 MG CAP.ER.24H PO SCH (10:39)
[2020-08-30] MEDS: PIPERACILLIN-TAZOBACTAM 3.375 GM in SODIUM CHLORIDE 0.9% 100 ML IVPB SCH ×2 (10:39→17:32)
[2020-08-30 11:39] LABS: Basophils # (A) 0.1 k/uL (0-0.2); Basophils % (A) 1 %; Eosinophils % (A) 0 %; HCT 38.1 % (39.0-53.0); Hypochromasia Moderate; Lymphocytes # (A) 1.6 k/uL (1.0-4.8); Lymphocytes % (A) 15 %; MCH 32.4 pg (25.0-35.0); MCHC 31.6 g/dL (31.0-37.0); MCV 102.5 fL (80.0-100.0); Macrocytosis Slight; Mean Platelet Volume 7.1; Monocytes # (A) 0.5 k/uL (0-1.0); Monocytes % (A) 5 %; Neutrophils # (A) 8.4 k/uL (1.3-7.7); Neutrophils % (A) 78 %; Platelet Count 159 k/uL (150-450); RBC 3.72 m/uL (4.30-5.90); RDW 13.4 % (11.5-15.5); WBC 10.8 k/uL (3.8-10.6)
[2020-08-30 11:45] LABS: Glucose,Whole Blood 121 mg/dL (75-99)
[2020-08-30] MEDS: INSULIN ASPART (NovoLOG) 100 UNIT/ML VIAL SQ SCH ×3 (11:45→20:22)
[2020-08-30 12:02] LABS: INR 1.2 (<1.2)
[2020-08-30 12:03] LABS: Partial Thromboplastin Time 25.4 sec (22.0-30.0); Prothrombin Time 12.1 sec (9.0-12.0)
[2020-08-30 12:06] LABS: Hepatitis A Antibody IgM Non-Reactive (Non-Reactive); Hepatitis B Core IgM Non-Reactive (Non-Reactive); Hepatitis B Surface Antigen Non-Reactive (Non-Reactive); Hepatitis C IgG Antibody Non-Reactive (Non-Reactive)
--- NOTE | 2020-08-30 12:21 | P.HPIM ---
History of Present Illness H&P Date: 08/30/20 Chief Complaint: Generalized weakness, fall HISTORY OF PRESENT ILLNESS This is an 85-year-old male patient of Dr. Larkin with past medical hi story of hypertension, hypertensive cardiovascular disease, hyperlipidemia, gastroesophageal reflux disease, diabetes mellitus type 2, obesity with obstructive sleep apnea and obesity hypoventilation syndrome, generalized osteoarthritis, chronic kidney disease stage IIIb. Patient presented to the [facility] due to a fall at home. Patient states that he was in the bathroom and the fire department had to come and help him. He has been experiencing chills, generalized weakness over the past week. Patient also has abdominal pain in the upper area right of midline. No nausea or vomiting. Patient complains of shortness of breath. Patient was found to be afebrile, heart rate initially 125 bpm, blood pressure 112/60, pulse ox 95% on room air. WBC 9.9, hemoglobin 12.5, platelet count 168. INR 1.0. Sodium 136, potassium 4.3, CO2 21, BUN 18 and creatinine 1.48 which appears to be his baseline. Blood sugar 288. Initial lactic acid 2.1. Patient is status post 1 L of IV fluids and 1.5 L additional ordered. Troponin 0.061, 0.163 and 0.254. Urinalysis clear with glucose 4+, ketones 1+. Total bilirubin 2.5, AST 359, ALT 236, alkaline phosphatase 124. Coronavirus PCR not detected. CAT scan of the abdomen and pelvis revealed no evidence of bowel ischemia. Colonic diverticulosis. Amylase seen as of the mid abdomen mesentery with small nodes similar to prior. 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 CTA of the chest revealed no central pulmonary embolism. Enlarged pulmonary arteries reflect pulmonary artery hypertension. Mild basilar atelectasis. Ultrasound gallbladder reveals acute cholecystitis. Patient remains in the emergency center waiting for a bed on the cardiac stepdown unit. Heparin drip added, consult with pulmonary medicine, GI and general surgery. REVIEW OF SYSTEMS Constitutional: No fever, no chills, no night sweats. No weight change. Reports weakness, Reports fatigue. EENT: No headache. No blurred vision or double vision, no loss of vision. Reports loss of Hearing. No nasal drainage or congestion. No epistaxis. No sore throat. Lungs: Reports shortness of breath, cough, no sputum production. No wheezing. Cardiovascular: No chest pain, no lower extremity edema. No palpitations. No paroxysmal nocturnal dyspnea. No orthopnea. No lightheadedness or dizziness. No syncopal episodes. Abdominal: No abdominal pain. No nausea, vomiting. No diarrhea. No constipation. No bloody or tarry stools.. No loss of appetite. Genitourinary: No dysuria, increased frequency, urgency. No urinary retention. Musculoskeletal: No myalgias. Reports muscle weakness, Reports gait dysfunction, Reports falls. No back pain. No neck pain. Integumentary: No wounds, no lesions. No rash or pruritus. Neurologic: No aphasia. No facial droop. No change in mentation. No head injury. No headache. No paralysis. No paresthesia. Psychiatric: No depression. No anxiety. N Endocrine: No abnormal blood sugars. SOCIAL HISTORY She is and lives at with his . He is a nonsmoker. No alcohol use. FAMILY HISTORY Mother at age 83 from consultations from diabetes. Father at age 93 with history of pacemaker implantation at age 93. Patient has 1 brother that at age 77 with history of Alzheimer's disease and Parkinson's. Patient has 2 sisters that have had breast cancers. Patient has 2 sons and 5 daughters. One daughter from breast cancer diagnosed at age 27. PHYSICAL EXAMINATION Gen: This is an 85-year-old male. Patient is resting on the ER stretcher. Patient appears to be ill. HEENT: Head is atraumatic, normocephalic. Pupils equal, round. Sclerae is anicteric. NECK: Supple. No JVD. No lymphadenopathy. No thyromegaly. LUNGS: Diminished but otherwise Clear to auscultation. No wheezes or rhonchi. No intercostal retractions. HEART: Regular rate and rhythm. No murmur. ABDOMEN: Soft. Bowel sounds are present. No masses. No tenderness. EXTREMITIES: No pedal edema. No calf tenderness. Dorsalis pedis palpable bilaterally. NEUROLOGICAL: Patient is awake, alert and oriented x3. Cranial nerves 2 through 12 are grossly intact. ASSESSMENT AND PLAN 1. Possible Non-ST elevated myocardial infarction. Patient will be started on heparin drip, continue aspirin, consult with cardiology. Continue Nitrostat. 2. Elevated liver enzymes with acute cholecystitis. Consult with GI and general surgery. Start Zosyn. 3. SIRS with lactic acidosis and tachycardia. Patient is status post post fluid resuscitation. Lactic acid is normal. She was started on Zosyn 3.375 g IV piggyback every 8 hours. 4. Generalized weakness multifactorial from non-ST elevated myocardial infar ction, acute cholecystitis, lactic acidosis and SIRS. 5. Hypertension, hypertensive cardiovascular disease. Follow-up blood pressure is on the low side. Hold lisinopril. 6. Hyperlipidemia. Hold statin due to elevated liver function tests. 7. Diabetes mellitus type 2. Hold glipizide and metformin. Patient will be placed on NovoLog scale before meals and at bedtime. 8. Obesity with obstructive sleep apnea and obesity hypoventilation syndrome. Patient may have CPAP brought from home. 9. Gastroesophageal reflux disease and GI prophylaxis. Continue omeprazole or equivalent. 10. Benign prostatic hypertrophy. Continue Flomax 0.4 mg twice daily. 11. Chronic kidney disease stage IIIb. Lisinopril and Lasix on hold. 12. DVT prophylaxis. Heparin drip. Patient will be admitted to the hospital for a minimum of 2 night stay. DISCHARGE PLAN TBD. Impression and plan of care have been directed as dictated by the signing physician. Augustina Washington nurse practitioner acting as scribe for signing physician. Past Medical History Past Medical History: Diabetes Mellitus, GERD/Reflux, Hyperlipidemia, Hypertension, Osteoarthritis (OA), Prostate Disorder, Sleep Apnea/CPAP/BIPAP Additional Past Medical History / Comment(s): IDDM type II, occasional numbness/tingling in R hand, very [place] bilaterally/wearing L aide, falls, R knee "gives out", unable to stand for very long, bilateral lower leg edema at times, arthritis in multiple joints, BPH, EMILIANO with Cpap, perforated gastric ulcer/surgical repair, diverticulosis, constipation. 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 Past Anesthesia/Blood Transfusion Reactions: No Reported Reaction Smoking Status: Never smoker - Past Family History Mother Family Medical History: Diabetes Mellitus Additional Family Medical History / Comment(s): Mother at age 83 from complications from diabetes. Father Family Medical History: Coronary Artery Disease (CAD) Additional Family Medical History / Comment(s): Father at age 93 and only history was pacemaker implantation at age 93. Brother(s) History Unknown: Yes Additional Family Medical History / Comment(s): Patient was 1 brother that at age 77 with history of Alzheimer's disease and Parkinson's. Sister(s) Family Medical History: Cancer Additional Family Medical History / Comment(s): 2 SISTERS HAD BREAST CANCER Son(s) Additional Family Medical History / Comment(s): Patient has 2 sons and 5 daughters. One daughter from breast cancer at age 27. Other children have no major medical problems. Daughter(s) Family Medical History: Cancer Additional Family Medical History / Comment(s): BREAST CANCER AT 27, SURVIVED FOR 5 YEARS. Medications and Allergies Home Medications Medication Instructions Recorded Confirmed Type Simvastatin [Zocor] 40 mg PO HS 11/26/16 08/30/20 History Tamsulosin [Flomax] 0.4 mg PO PC-BID 11/26/16 08/30/20 History lisinopriL [Zestril] 2.5 mg PO QAM 11/26/16 08/30/20 History Multivitamins, Thera [Multivitamin 1 tab PO DAILY 08/20/17 08/30/20 History (formulary)] Insulin Glargine,Hum.rec.anlog 35 unit SQ HS 09/15/17 08/30/20 History [Lisaaglar Venkateshpen U-100] Furosemide [Lasix] 40 mg PO Q72H PRN 08/30/20 08/30/20 History Ibuprofen [Motrin Ib] 200 mg PO Q6H PRN 08/30/20 08/30/20 History Omeprazole 20 mg PO DAILY 08/30/20 08/30/20 History Potassium Chloride ER [K-Dur 10] 20 meq PO Q72H PRN 08/30/20 08/30/20 History glipiZIDE/METFORMIN HCL 2 tab PO BID 08/30/20 08/30/20 History [glipiZIDE/METFORMIN HCL 2.5-500 mg] Allergies Allergy/AdvReac Type Severity Reaction Status Date / Time No Known Allergies Allergy Verified 08/30/20 07:07 Physical Exam Vitals: Vital Signs Temp Pulse Resp BP Pulse Ox 08/30/20 08:48 98.6 F 103 H 18 108/68 95 08/30/20 06:47 98.6 F 103 H 20 112/74 94 L 08/30/20 03:52 98.4 F 105 H 20 107/69 94 L 08/30/20 02:24 98.6 F 107 H 20 105/64 94 L 08/30/20 00:20 99.5 F 125 H 18 112/60 95 Intake and Output 08/29/20 08/30/20 08/30/20 22:59 06:59 14:59 Other: Weight 97.522 kg 97.522 kg Results CBC & Chem 7: 08/30/20 10:51 08/30/20 00:35 Labs: Abnormal Lab Results - Last 24 Hours (Table) 08/30/20 08/30/20 08/30/20 Range/Units 00:35 00:35 00:35 RBC 4.00 L (4.30-5.90) m/uL Hgb 12.5 L (13.0-17.5) gm/dL Neutrophils # 8.9 H (1.3-7.7) k/uL Lymphocytes # 0.5 L (1.0-4.8) k/uL APTT 21.4 L (22.0-30.0) sec Sodium 136 L (137-145) mmol/L Carbon Dioxide 21 L (22-30) mmol/L Creatinine 1.48 H (0.66-1.25) mg/dL Glucose 288 H (74-99) mg/dL Plasma Lactic Acid Romeo (0.7-2.0) mmol/L Total Bilirubin 2.5 H (0.2-1.3) mg/dL AST 359 H (17-59) U/L ALT 236 H (4-49) U/L Troponin I (0.000-0.034) ng/mL Urine Protein (Negative) Urine Glucose (UA) (Negative) Urine Ketones (Negative) Urine Bilirubin (Negative) Ur Leukocyte Esterase (Negative) 08/30/20 08/30/20 08/30/20 Range/Units 00:35 00:35 02:21 RBC (4.30-5.90) m/uL Hgb (13.0-17.5) gm/dL Neutrophils # (1.3-7.7) k/uL Lymphocytes # (1.0-4.8) k/uL APTT (22.0-30.0) sec Sodium (137-145) mmol/L Carbon Dioxide (22-30) mmol/L Creatinine (0.66-1.25) mg/dL Glucose (74-99) mg/dL Plasma Lactic Acid Romeo 4.3 H* (0.7-2.0) mmol/L Total Bilirubin (0.2-1.3) mg/dL AST (17-59) U/L ALT (4-49) U/L Troponin I 0.061 H* (0.000-0.034) ng/mL Urine Protein Trace H (Negative) Urine Glucose (UA) 4+ H (Negative) Urine Ketones 1+ H (Negative) Urine Bilirubin 1+ H (Negative) Ur Leukocyte Esterase Small H (Negative) 08/30/20 08/30/20 08/30/20 Range/Units 03:18 03:18 06:36 RBC (4.30-5.90) m/uL Hgb (13.0-17.5) gm/dL Neutrophils # (1.3-7.7) k/uL Lymphocytes # (1.0-4.8) k/uL APTT (22.0-30.0) sec Sodium (137-145) mmol/L Carbon Dioxide (22-30) mmol/L Creatinine (0.66-1.25) mg/dL Glucose (74-99) mg/dL Plasma Lactic Acid Romeo 2.1 H* (0.7-2.0) mmol/L Total Bilirubin (0.2-1.3) mg/dL AST (17-59) U/L ALT (4-49) U/L Troponin I 0.163 H* 0.254 H* (0.000-0.034) ng/mL Urine Protein (Negative) Urine Glucose (UA) (Negative) Urine Ketones (Negative) Urine Bilirubin (Negative) Ur Leukocyte Esterase (Negative) Thrombosis Risk Factor Assmnt - Choose All That Apply Any of the Below Risk Factors Present?: Yes Each Factor Represents 1 point: Medical pt on bed rest Other Risk Factors: Yes Each Risk Factor Represents 3 Points: Age 75 years or older Other congenital or acquired thrombophilia - If yes, enter type in comment: No Thrombosis Risk Factor Assessment Total Risk Factor Score: 4 Thrombosis Risk Factor Assessment Level: Moderate Risk
--- NOTE | 2020-08-30 14:07 | P.CRDCN ---
History of Present Illness Consult date: 08/30/20 Chief complaint: Generalized weakness History of present illness: This is a pleasant 85-year-old gentleman who we requested to see as a consult f or further cardiac evaluation of abnormal cardiac enzymes and elevated troponin. The patient does have a past medical history significant for hypertension as well as dyslipidemia as well as diabetes and also obesity. He was admitted to the hospital through the emergency department after he fell at home without any loss of consciousness or syncope. He fell in the bathroom. At home before he presented to the hospital he was feeling weak and tired and also he was experiencing some chills. No reported fever. No symptoms of chest pain or chest discomfort and no shortness of breath. No history of coronary artery disease or congestive heart failure or cardiac arrhythmia. When he presented to the hospital he was tachycardic. WBC was slightly elevated. The hemoglobin and platelet count were within normal limits. Electrolytes are within normal limits. The EKG showed sinus rhythm without any significant ST or T-wave abnormalities but the patient was a slightly tachycardic with a resting heart rate around 80. We requested to see the patient for abnormal cardiac enzymes. As a mentioned earlier the patient did not report any symptoms of chest pain or chest discomfort. He underwent an ultrasound of the abdomen which showed cholecystitis. Computed tomography scan of the chest was performed and came in to be unremarkable for pulmonary embolism. Past Medical History Past Medical History: Diabetes Mellitus, GERD/Reflux, Hyperlipidemia, Hyp ertension, Osteoarthritis (OA), Prostate Disorder, Sleep Apnea/CPAP/BIPAP Additional Past Medical History / Comment(s): IDDM type II, occasional numbness/tingling in R hand, very [place] bilaterally/wearing L aide, falls, R knee "gives out", unable to stand for very long, bilateral lower leg edema at times, arthritis in multiple joints, BPH, EMILIANO with Cpap, perforated gastric u lcer/surgical repair, diverticulosis, constipation. 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 Past Anesthesia/Blood Transfusion Reactions: No Reported Reaction Smoking Status: Never smoker - Past Family History Mother Family Medical History: Diabetes Mellitus Additional Family Medical History / Comment(s): Mother at age 83 from complications from diabetes. Father Family Medical History: Coronary Artery Disease (CAD) Additional Family Medical History / Comment(s): Father at age 93 and only history was pacemaker implantation at age 93. Brother(s) History Unknown: Yes Additional Family Medical History / Comment(s): Patient was 1 brother that at age 77 with history of Alzheimer's disease and Parkinson's. Sister(s) Family Medical History: Cancer Additional Family Medical History / Comment(s): 2 SISTERS HAD BREAST CANCER Son(s) Additional Family Medical History / Comment(s): Patient has 2 sons and 5 daughters. One daughter from breast cancer at age 27. Other children have no major medical problems. Daughter(s) Family Medical History: Cancer Additional Family Medical History / Comment(s): BREAST CANCER AT 27, SURVIVED FOR 5 YEARS. Medications and Allergies Home Medications Medication Instructions Recorded Confirmed Type Simvastatin [Zocor] 40 mg PO HS 11/26/16 08/30/20 History Tamsulosin [Flomax] 0.4 mg PO PC-BID 11/26/16 08/30/20 History lisinopriL [Zestril] 2.5 mg PO QAM 11/26/16 08/30/20 History Multivitamins, Thera [Multivitamin 1 tab PO DAILY 08/20/17 08/30/20 History (formulary)] Insulin Glargine,Hum.rec.anlog 35 unit SQ HS 09/15/17 08/30/20 History [Basaglar Kwikpen U-100] Furosemide [Lasix] 40 mg PO Q72H PRN 08/30/20 08/30/20 History Ibuprofen [Motrin Ib] 200 mg PO Q6H PRN 08/30/20 08/30/20 History Omeprazole 20 mg PO DAILY 08/30/20 08/30/20 History Potassium Chloride ER [K-Dur 10] 20 meq PO Q72H PRN 08/30/20 08/30/20 History glipiZIDE/METFORMIN HCL 2 tab PO BID 08/30/20 08/30/20 History [glipiZIDE/METFORMIN HCL 2.5-500 mg] Allergies Allergy/AdvReac Type Severity Reaction Status Date / Time No Known Allergies Allergy Verified 08/30/20 07:07 Physical Exam Vitals: Vital Signs Temp Pulse Resp BP Pulse Ox 08/30/20 10:48 98.6 F 99 18 110/69 94 L 08/30/20 08:48 98.6 F 103 H 18 108/68 95 08/30/20 06:47 98.6 F 103 H 20 112/74 94 L 08/30/20 03:52 98.4 F 105 H 20 107/69 94 L 08/30/20 02:24 98.6 F 107 H 20 105/64 94 L 08/30/20 00:20 99.5 F 125 H 18 112/60 95 Intake and Output 08/29/20 08/30/20 08/30/20 22:59 06:59 14:59 Other: Weight 97.522 kg 97.522 kg - Constitutional General appearance: no acute distress - Respiratory Respiratory: bilateral: CTA - Cardiovascular Rhythm: regular Heart sounds: normal: S1, S2 Results 08/30/20 10:51 08/30/20 00:35 Cardiac Enzymes 08/30/20 08/30/20 08/30/20 Range/Units 00:35 00:35 03:18 AST 359 H (17-59) U/L Troponin I 0.061 H* 0.163 H* (0.000-0.034) ng/mL 08/30/20 Range/Units 06:36 AST (17-59) U/L Troponin I 0.254 H* (0.000-0.034) ng/mL Coagulation 08/30/20 08/30/20 Range/Units 00:35 10:51 PT 11.0 12.1 H (9.0-12.0) sec APTT 21.4 L 25.4 (22.0-30.0) sec CBC 08/30/20 08/30/20 Range/Units 00:35 10:51 WBC 9.9 10.8 H (3.8-10.6) k/uL RBC 4.00 L 3.72 L (4.30-5.90) m/uL Hgb 12.5 L 12.0 L (13.0-17.5) gm/dL Hct 39.1 38.1 L (39.0-53.0) % Plt Count 168 159 (150-450) k/uL Comprehensive Metabolic Panel 08/30/20 Range/Units 00:35 Sodium 136 L (137-145) mmol/L Potassium 4.3 (3.5-5.1) mmol/L Chloride 102 (98-107) mmol/L Carbon Dioxide 21 L (22-30) mmol/L BUN 18 (9-20) mg/dL Creatinine 1.48 H (0.66-1.25) mg/dL Glucose 288 H (74-99) mg/dL Calcium 9.1 (8.4-10.2) mg/dL AST 359 H (17-59) U/L ALT 236 H (4-49) U/L Alkaline Phosphatase 124 (38-126) U/L Total Protein 6.7 (6.3-8.2) g/dL Albumin 3.8 (3.5-5.0) g/dL Current Medications Generic Name Dose Route Start Last Admin Trade Name Freq PRN Reason Stop Dose Admin Aspirin 325 mg 08/31/20 09:00 Aspirin 325 Mg Tab PO DAILY [facility] Heparin Sodium (Porcine) 0 unit 08/30/20 10:11 Heparin Sodium,Porcine 5,000 Unit/Ml 1 Ml Vial IV PER PROTOCOL PRN Low PTT Protocol Sodium Chloride 1,000 mls @ 130 mls/hr 08/30/20 01:15 08/30/20 10:34 Saline 0.9% IV 130 mls/hr .[id number] [facility] Administration Heparin Sodium/Sodium Chloride 250 mls @ 9.947 mls/hr 08/30/20 10:15 08/30/20 10:39 25,000 unit/ Sodium Chloride IV 10.2 units/kg/hr .Q24H [facility] 9.947 mls/hr Administration Protocol 10.2 UNITS/KG/HR Piperacillin Sod/Tazobactam 100 mls @ 25 mls/hr 08/30/20 10:45 08/30/20 10:39 Sod 3.375 gm/ Sodium Chloride IVPB 25 mls/hr Q8HR@0200,1000,1800 [facility] Administration Insulin Aspart 0 unit 08/30/20 12:30 Insulin Aspart (Novolog) 100 Unit/Ml Vial SQ ACHS [facility] Protocol Insulin Detemir 15 unit 08/30/20 21:00 Insulin Detemir (Levemir) 100 Unit/Ml Syr SQ HS [facility] Multivitamins 1 each 08/31/20 09:00 Multivitamins, Thera 1 Each Tab PO DAILY [facility] Nitroglycerin 0.4 mg 08/30/20 03:00 Nitroglycerin Sl Tabs 0.4 Mg Tab SUBLINGUAL Q5M PRN Chest Pain Pantoprazole Sodium 40 mg 08/31/20 07:30 Pantoprazole 40 Mg Tablet PO AC-BRKFST [facility] Tamsulosin HCl 0.4 mg 08/30/20 18:30 08/30/20 10:39 Tamsulosin 0.4 Mg Cap.Er.24h PO 0.4 mg PC-BID [facility] Administration Intake and Output 08/29/20 08/30/20 08/30/20 22:59 06:59 14:59 Other: Weight 97.522 kg 97.522 kg Patient Weight 08/31/20 06:59 Weight 97.522 kg 08/30/20 10:51 08/30/20 00:35 Assessment and Plan Assessment: Assessment #1 generalized weakness and fatigue #2 sinus tachycardia #3 acute cholecystitis #4 mildly abnormal cardiac enzymes #5 multiple comorbid conditions Plan #1 I would advise a conservative medical approach regarding the abnormal cardiac enzymes giving the absence of chest pain and chest discomfort and ischemic ST and T wave abnormalities #2 the abnormal cardiac enzymes is likely related to the sinus tachycardia when the patient presented to the hospital #3 severe underlying coronary artery disease to be ruled out probably as an outpatient #4 if the patient need to undergo cholecystectomy he can proceed with the procedure #5 we'll obtain an echocardiogram with Doppler #6 follow-up with the patient
[2020-08-30] MEDS: HEPARIN SOD,PORK IN 0.45% NACL 25,000 UNIT in 0.45% NACL 1 250ML.BAG IV SCH (16:03)
[2020-08-30 16:48] LABS: Glucose,Whole Blood 171 mg/dL (75-99)
[2020-08-30 20:20] LABS: Glucose,Whole Blood 166 mg/dL (75-99)
[2020-08-30] MEDS: INSULIN DETEMIR (LEVEMIR) 100 UNIT/ML SYR SQ SCH (20:22)
--- NOTE | 2020-08-30 23:05 | CONS ---
CONSULTATION DATE OF DICTATION: 08/30/2020 REASON FOR CONSULTATION: Abdominal pain and elevated LFTs. HISTORY OF PRESENT ILLNESS: The patient is an 85-year-old pleasant white male with history of hypertension, hyperlipidemia, gastroesophageal reflux disease, diabetes mellitus, morbid obesity and chronic kidney disease, stage 3, admitted to the hospital after he had a fall at home. He called EMS and subsequently was brought to the emergency room. He was complaining of chronic abdominal pain for several weeks' duration. The patient is somewhat a poor historian. He states that the pain is in the lower abdominal area and sometimes he points up to the right upper quadrant and epigastric area. The pain has been on and off for the last several weeks' duration. He denies any nausea, vomiting. No rectal bleeding or melena. He came into the emergency room and had labs done that showed elevated LFTs with AST of 359, ALT of 236, and alkaline phosphatase of 124. Bilirubin was 2.5. He did have a CT of the abdomen and pelvis done in the ER that showed colonic diverticulosis and evidence of mild mesenteric panniculitis with no significant change from the prior CT scan done a few months ago. He also had a CT angiogram of the chest that did not reveal any pulmonary emboli. PAST MEDICAL HISTORY: Significant for hypertension, hyperlipidemia, gastroesophageal reflux disease, diabetes mellitus, morbid obesity, sleep apnea, chronic kidney disease, degenerative joint disease. PAST SURGICAL HISTORY: Right knee arthroscopy, bilateral total knee replacement, bilateral cataract surgery, umbilical hernia repair, ventral hernia repair, exploratory laparotomy with repair of perforated ulcer several years ago. MEDICATIONS: Medications at home include Flomax, multivitamin, Zestril, insulin, aspirin, Claritin, Zocor. ALLERGIES: NONE. SOCIAL HISTORY: No smoking. No alcohol use. FAMILY HISTORY: Mother had diabetes mellitus. Father had coronary artery disease. Brother of Alzheimer's. REVIEW OF SYSTEMS: CARDIOPULMONARY: He does complain of some shortness of breath but he denies any chest pain. NEUROLOGY: Unremarkable. PSYCHIATRY: Unremarkable. ENT/VISION: Unremarkable. CONSTITUTIONAL: No recent weight loss. No fever, chills, night sweats. HEMATOLOGY: Unremarkable. ONCOLOGY: Unremarkable. PHYSICAL EXAMINATION: He appears comfortable. No apparent distress. Vital signs are stable. Blood pressure is 123/67, pulse rate 71, temperature 98.6. HEENT examination unremarkable. Conjunctivae pink. Sclerae anicteric. Oral cavity no lesions. NECK: No JVD or lymph node enlargement. CHEST: Clear to auscultation. HEART: Regular rate and rhythm. ABDOMEN: Obese. Bowel sounds were positive. There was ventral hernia noted in the epigastric area. There was very minimal tenderness in the right upper quadrant area as well as in the left lower quadrant area. Rest of the abdomen was soft. Bowel sounds are positive. EXTREMITIES: No pedal edema. NEUROLOGIC: He is alert and oriented x3. No focal deficits. LABS: Labs at the time of admission to the hospital this morning: WBC 10.8, hemoglobin 12, platelets normal. PT and INR 1.2. T-bilirubin is 2.5, AST 359, ALT 236, alkaline phosphatase 124. Hepatitis serologies for A, B and C were negative. CT of the abdomen revealed fatty liver, atrophic-appearing pancreas, colonic diverticulosis, minimal haziness of the mid abdominal mesentry with small nodes suspicious for mesenteric panniculitis. IMPRESSION: 1. Chronic intermittent abdominal pain for the last few weeks' duration. Pain is mostly located in the upper abdomen in the right upper quadrant area and occasionally in the left lower quadrant area. CT scan of the abdomen did not show significant abnormality other than mild haziness of the mesentery suspicious for mesenteric panniculitis, but this did not change from the prior CT scan done a few months ago. He was also noted to have elevated serum transaminases. At this time possibility of biliary obstruction versus hepatocellular process needs to be considered. CT scan showed fatty liver but normal-appearing gallbladder. 2. Mildly elevated troponin to 0.254. Cardiology has been consulted. Possible non-ST- segment GA. Patient was started on IV heparin. 3. Long-standing history of diabetes mellitus. 4. History of hypertension and hyperlipidemia. 5. Morbid obesity. 6. Chronic kidney disease, stage III. RECOMMENDATIONS: 1. Will obtain ultrasound of the gallbladder to rule out any gallstones and biliary ductal dilation. 2. Obtain hepatitis serologies for A, B and C. 3. Monitor LFTs closely. 4. Await evaluation by Cardiology. 5. Continue with Protonix 40 mg daily. 6. Repeat labs in the morning. Will follow with you closely. Thank you for this consultation. MMODL / IJN: [id number] / MTDD
[2020-08-31] MEDS: PIPERACILLIN-TAZOBACTAM 3.375 GM in SODIUM CHLORIDE 0.9% 100 ML IVPB SCH ×3 (02:45→16:53)
[2020-08-31 05:24] LABS: Glucose,Whole Blood 96 mg/dL (75-99)
[2020-08-31] MEDS: PANTOPRAZOLE 40 MG TABLET PO SCH (06:29)
[2020-08-31] MEDS: HEPARIN SOD,PORK IN 0.45% NACL 25,000 UNIT in 0.45% NACL 1 250ML.BAG IV SCH (06:32)
[2020-08-31 08:19] LABS: Basophils % (A) 0 %; Eosinophils # (A) 0.1 k/uL (0-0.7); Eosinophils % (A) 2 %; HCT 36.3 % (39.0-53.0); HGB 11.6 gm/dL (13.0-17.5); Lymphocytes # (A) 1.6 k/uL (1.0-4.8); Lymphocytes % (A) 23 %; MCH 31.2 pg (25.0-35.0); MCHC 31.8 g/dL (31.0-37.0); MCV 98.1 fL (80.0-100.0); Monocytes # (A) 0.3 k/uL (0-1.0); Monocytes % (A) 5 %; Neutrophils # (A) 4.7 k/uL (1.3-7.7); Neutrophils % (A) 68 %; Platelet Count 167 k/uL (150-450); RDW 13.8 % (11.5-15.5)
[2020-08-31] MEDS: INSULIN ASPART (NovoLOG) 100 UNIT/ML VIAL SQ SCH ×4 (08:41→21:40)
[2020-08-31] MEDS: SODIUM CHLORIDE 0.9% 1,000 ML IV SCH ×2 (08:41→08:47)
[2020-08-31] MEDS: ASPIRIN 325 MG TAB PO SCH (08:45)
[2020-08-31] MEDS: TAMSULOSIN 0.4 MG CAP.ER.24H PO SCH ×2 (08:45→16:54)
[2020-08-31] MEDS: MULTIVITAMINS, THERA 1 EACH TAB PO SCH (08:46)
[2020-08-31 09:01] LABS: Albumin 3.1 g/dL (3.5-5.0); Calcium 8.1 mg/dL (8.4-10.2); Potassium 4.6 mmol/L (3.5-5.1); Total Bilirubin 1.9 mg/dL (0.2-1.3); Total Protein 5.9 g/dL (6.3-8.2)
--- NOTE | 2020-08-31 10:08 | P.GSCN ---
History of Present Illness Consult date: 08/31/20 History of present illness: 85-year-old male presented to the emergency department due to a fall at home. He states that he fell in the bathroom. He is extremely hard of hearing and is a poor historian. He is noted to have a significant amount of medical comorbidities including hypertension, hypertensive cardiovascular disease, hyperlipidemia, GERD, diabetes mellitus type 2, obstructive sleep apnea, osteoarthritis, chronic kidney disease. He stated in the emergency department that he was experiencing generalized weakness for the past week and believe that he was having abdominal pain for the past month. On initial workup, laboratory values were drawn with elevation of the total bilirubin and AST and ALT. Computed tomography scan of the abdomen and pelvis revealed no significant evidence of bowel ischemia and normal-looking gallbladder. There was some concern for mesenteric adenitis. Further workup was performed with ultrasound of the gallbladder that did show a thickened gallbladder wall with cholelithiasis. Currently, on exam, patient denies any significant abdominal pain. There is concern for elevated troponin and cardiac event. Secondary to this, patient is on heparin drip at this time. Cardiology is following. Patient is also known to have had a previous exploratory laparotomy secondary to perforated ulcer. The patient does state that his surgeon at the time recommended no further abdominal surgery based on significant adhesions and high risk. Review of Systems All systems: negative Past Medical History Past Medical History: Diabetes Mellitus, GERD/Reflux, Hyperlipidemia, Hypertension, Osteoarthritis (OA), Prostate Disorder, Sleep Apnea/CPAP/BIPAP Additional Past Medical History / Comment(s): IDDM type II, occasional numbness/tingling in R hand, very kenaitze bilaterally/wearing L aide, falls, R knee "gives out", unable to stand for very long, bilateral lower leg edema at times, arthritis in multiple joints, BPH, EMILIANO with Cpap, perforated gastric ulcer/surgical repair, diverticulosis, constipation. 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 Past Anesthesia/Blood Transfusion Reactions: No Reported Reaction Smoking Status: Never smoker - Past Family History Mother Family Medical History: Diabetes Mellitus Additional Family Medical History / Comment(s): Mother at age 83 from complications from diabetes. Father Family Medical History: Coronary Artery Disease (CAD) Additional Family Medical History / Comment(s): Father at age 93 and only history was pacemaker implantation at age 93. Brother(s) History Unknown: Yes Additional Family Medical History / Comment(s): Patient was 1 brother that at age 77 with history of Alzheimer's disease and Parkinson's. Sister(s) Family Medical History: Cancer Additional Family Medical History / Comment(s): 2 SISTERS HAD BREAST CANCER Son(s) Additional Family Medical History / Comment(s): Patient has 2 sons and 5 daughters. One daughter from breast cancer at age 27. Other children have no major medical problems. Daughter(s) Family Medical History: Cancer Additional Family Medical History / Comment(s): BREAST CANCER AT 27, SURVIVED FOR 5 YEARS. Medications and Allergies Home Medications Medication Instructions Recorded Confirmed Type Simvastatin [Zocor] 40 mg PO HS 11/26/16 08/30/20 History Tamsulosin [Flomax] 0.4 mg PO PC-BID 11/26/16 08/30/20 History lisinopriL [Zestril] 2.5 mg PO QAM 11/26/16 08/30/20 History Multivitamins, Thera [Multivitamin 1 tab PO DAILY 08/20/17 08/30/20 History (formulary)] Insulin Glargine,Hum.rec.anlog 35 unit SQ HS 09/15/17 08/30/20 History [Lisaaglar Venkateshpen U-100] Furosemide [Lasix] 40 mg PO Q72H PRN 08/30/20 08/30/20 History Ibuprofen [Motrin Ib] 200 mg PO Q6H PRN 08/30/20 08/30/20 History Omeprazole 20 mg PO DAILY 08/30/20 08/30/20 History Potassium Chloride ER [K-Dur 10] 20 meq PO Q72H PRN 08/30/20 08/30/20 History glipiZIDE/METFORMIN HCL 2 tab PO BID 08/30/20 08/30/20 History [glipiZIDE/METFORMIN HCL 2.5-500 mg] Allergies Allergy/AdvReac Type Severity Reaction Status Date / Time No Known Allergies Allergy Verified 08/30/20 07:07 Surgical - Exam Osteopathic Statement: *. No significant issues noted on an osteopathic structural exam other than those noted in the History and Physical/Consult. Vital Signs Temp Pulse Resp BP Pulse Ox 99.5 F 125 H 18 112/60 95 08/30/20 00:20 08/30/20 00:20 08/30/20 00:20 08/30/20 00:20 08/30/20 00:20 - General well nourished, no distress - Eyes PERRL - ENT decreased hearing - Neck trachea midline - Respiratory normal respiratory effort - Abdomen Soft, no significant tenderness throughout the abdomen, nondistended, no rebound, no guarding, obvious and reducible ventral hernia at the midline incision Results - Labs 08/31/20 07:43 08/31/20 07:43 Abnormal Lab Results - Last 24 Hours (Table) 08/30/20 08/30/20 08/30/20 Range/Units 10:51 10:51 11:42 WBC 10.8 H (3.8-10.6) k/uL RBC 3.72 L (4.30-5.90) m/uL Hgb 12.0 L (13.0-17.5) gm/dL Hct 38.1 L (39.0-53.0) % MCV 102.5 H (80.0-100.0) fL Neutrophils # 8.4 H (1.3-7.7) k/uL PT 12.1 H (9.0-12.0) sec INR 1.2 H (<1.2) APTT (22.0-30.0) sec Creatinine (0.66-1.25) mg/dL POC Glucose (mg/dL) 121 H (75-99) mg/dL Calcium (8.4-10.2) mg/dL Total Bilirubin (0.2-1.3) mg/dL AST (17-59) U/L ALT (4-49) U/L Total Protein (6.3-8.2) g/dL Albumin (3.5-5.0) g/dL 08/30/20 08/30/20 08/30/20 Range/Units 16:19 16:45 20:13 WBC (3.8-10.6) k/uL RBC (4.30-5.90) m/uL Hgb (13.0-17.5) gm/dL Hct (39.0-53.0) % MCV (80.0-100.0) fL Neutrophils # (1.3-7.7) k/uL PT (9.0-12.0) sec INR (<1.2) APTT 31.5 H (22.0-30.0) sec Creatinine (0.66-1.25) mg/dL POC Glucose (mg/dL) 171 H 166 H (75-99) mg/dL Calcium (8.4-10.2) mg/dL Total Bilirubin (0.2-1.3) mg/dL AST (17-59) U/L ALT (4-49) U/L Total Protein (6.3-8.2) g/dL Albumin (3.5-5.0) g/dL 08/30/20 08/31/20 08/31/20 Range/Units 23:38 07:43 07:43 WBC (3.8-10.6) k/uL RBC 3.70 L (4.30-5.90) m/uL Hgb 11.6 L (13.0-17.5) gm/dL Hct 36.3 L (39.0-53.0) % MCV (80.0-100.0) fL Neutrophils # (1.3-7.7) k/uL PT (9.0-12.0) sec INR (<1.2) APTT 46.2 H (22.0-30.0) sec Creatinine 1.49 H (0.66-1.25) mg/dL POC Glucose (mg/dL) (75-99) mg/dL Calcium 8.1 L (8.4-10.2) mg/dL Total Bilirubin 1.9 H (0.2-1.3) mg/dL AST 110 H (17-59) U/L ALT 175 H (4-49) U/L Total Protein 5.9 L (6.3-8.2) g/dL Albumin 3.1 L (3.5-5.0) g/dL 08/31/20 Range/Units 07:43 WBC (3.8-10.6) k/uL RBC (4.30-5.90) m/uL Hgb (13.0-17.5) gm/dL Hct (39.0-53.0) % MCV (80.0-100.0) fL Neutrophils # (1.3-7.7) k/uL PT (9.0-12.0) sec INR (<1.2) APTT 37.6 H (22.0-30.0) sec Creatinine (0.66-1.25) mg/dL POC Glucose (mg/dL) (75-99) mg/dL Calcium (8.4-10.2) mg/dL Total Bilirubin (0.2-1.3) mg/dL AST (17-59) U/L ALT (4-49) U/L Total Protein (6.3-8.2) g/dL Albumin (3.5-5.0) g/dL Diabetes panel 08/31/20 Range/Units 07:43 Sodium 139 (137-145) mmol/L Potassium 4.6 (3.5-5.1) mmol/L Chloride 106 (98-107) mmol/L Carbon Dioxide 28 (22-30) mmol/L BUN 15 (9-20) mg/dL Creatinine 1.49 H (0.66-1.25) mg/dL Glucose 98 (74-99) mg/dL Calcium 8.1 L (8.4-10.2) mg/dL AST 110 H (17-59) U/L ALT 175 H (4-49) U/L Alkaline Phosphatase 100 (38-126) U/L Total Protein 5.9 L (6.3-8.2) g/dL Albumin 3.1 L (3.5-5.0) g/dL Triglycerides 126 (<150) mg/dL HDL Cholesterol 41 (40-60) mg/dL Calcium panel 08/31/20 Range/Units 07:43 Calcium 8.1 L (8.4-10.2) mg/dL Albumin 3.1 L (3.5-5.0) g/dL Pituitary panel 08/31/20 Range/Units 07:43 Sodium 139 (137-145) mmol/L Potassium 4.6 (3.5-5.1) mmol/L Chloride 106 (98-107) mmol/L Carbon Dioxide 28 (22-30) mmol/L BUN 15 (9-20) mg/dL Creatinine 1.49 H (0.66-1.25) mg/dL Glucose 98 (74-99) mg/dL Calcium 8.1 L (8.4-10.2) mg/dL Adrenal panel 08/31/20 Range/Units 07:43 Sodium 139 (137-145) mmol/L Potassium 4.6 (3.5-5.1) mmol/L Chloride 106 (98-107) mmol/L Carbon Dioxide 28 (22-30) mmol/L BUN 15 (9-20) mg/dL Creatinine 1.49 H (0.66-1.25) mg/dL Glucose 98 (74-99) mg/dL Calcium 8.1 L (8.4-10.2) mg/dL Total Bilirubin 1.9 H (0.2-1.3) mg/dL AST 110 H (17-59) U/L ALT 175 H (4-49) U/L Alkaline Phosphatase 100 (38-126) U/L Total Protein 5.9 L (6.3-8.2) g/dL Albumin 3.1 L (3.5-5.0) g/dL - Imaging CT scan - abdomen: report reviewed, image reviewed US - abdomen: report reviewed, image reviewed Assessment and Plan Plan: 85-year-old male with finding of elevated bilirubin and elevated transaminases. Currently, minimal to no abdominal pain. Transaminases appear to be downward t rending along with bilirubin. Echocardiogram is also pending at this time. Based on patient's previous surgical history, he would be high risk for open cholecystectomy if surgical intervention is required. At this point, he does not appear to be having significant symptoms. We will await complete GI and cardiac workup prior to making any surgical decision.
--- NOTE | 2020-08-31 10:12 | P.PN ---
Subjective Progress Note Date: 08/31/20 Principal diagnosis: Abnormal cardiac enzymes This is an 85-year-old gentleman with a past medical history significant for obesity and hypertension and dyslipidemia was admitted to the hospital with generalized weakness and fatigue. We consulted to see the patient because of ab normal cardiac enzymes. When the patient presented to the hospital he was in sinus tachycardia. Also he was diagnosed with acute cholecystitis and currently general surgery is on the case. The patient was seen today August [id number]. He is feeling overall better. Hemodynamically he is stable and the heart rate has came down. Currently he is on heparin IV which I am going to discontinue at this point. An echocardiogram is in process to be done. Overall we will consider conservative medical approach for the abnormal cardiac enzymes. If the patient need to undergo surgery for the cholecystitis he can proceed Objective - Vital Signs Vital signs: Vital Signs Temp 97.8 F 08/31/20 04:14 Pulse 97 08/31/20 04:14 Resp 18 08/31/20 04:14 BP 117/58 08/31/20 04:14 Pulse Ox 93 L 08/31/20 04:14 Intake & Output 08/30/20 08/31/20 08/31/20 18:59 06:59 18:59 Intake Total 490.925 167.134 Output Total 300 100 Balance 190.925 67.134 Weight 97.522 kg 129.9 kg Intake: Intake, IV Titration 14.925 167.134 Amount Heparin Sod,Pork in 0.45% 14.925 167.134 NaCl 25,000 unit In 0.45 % NaCl 1 250ml.bag @ 10. 254 UNITS/KG/HR 10 mls/hr IV .Q24H [facility] Rx#: [id number] Oral 476 Output: Urine 300 100 Other: Voiding Method Urinal # Voids 1 1 # Bowel Movements 1 1 - Constitutional General appearance: Present: no acute distress - Respiratory Respiratory: bilateral: diminished - Cardiovascular Rhythm: regular Heart sounds: normal: S1, S2 - Labs CBC & Chem 7: 08/31/20 07:43 08/31/20 07:43 Labs: Abnormal Lab Results - Last 24 Hours (Table) 08/30/20 08/30/20 08/30/20 Range/Units 10:51 10:51 11:42 WBC 10.8 H (3.8-10.6) k/uL RBC 3.72 L (4.30-5.90) m/uL Hgb 12.0 L (13.0-17.5) gm/dL Hct 38.1 L (39.0-53.0) % MCV 102.5 H (80.0-100.0) fL Neutrophils # 8.4 H (1.3-7.7) k/uL PT 12.1 H (9.0-12.0) sec INR 1.2 H (<1.2) APTT (22.0-30.0) sec Creatinine (0.66-1.25) mg/dL POC Glucose (mg/dL) 121 H (75-99) mg/dL Calcium (8.4-10.2) mg/dL Total Bilirubin (0.2-1.3) mg/dL AST (17-59) U/L ALT (4-49) U/L Total Protein (6.3-8.2) g/dL Albumin (3.5-5.0) g/dL 08/30/20 08/30/20 08/30/20 Range/Units 16:19 16:45 20:13 WBC (3.8-10.6) k/uL RBC (4.30-5.90) m/uL Hgb (13.0-17.5) gm/dL Hct (39.0-53.0) % MCV (80.0-100.0) fL Neutrophils # (1.3-7.7) k/uL PT (9.0-12.0) sec INR (<1.2) APTT 31.5 H (22.0-30.0) sec Creatinine (0.66-1.25) mg/dL POC Glucose (mg/dL) 171 H 166 H (75-99) mg/dL Calcium (8.4-10.2) mg/dL Total Bilirubin (0.2-1.3) mg/dL AST (17-59) U/L ALT (4-49) U/L Total Protein (6.3-8.2) g/dL Albumin (3.5-5.0) g/dL 08/30/20 08/31/20 08/31/20 Range/Units 23:38 07:43 07:43 WBC (3.8-10.6) k/uL RBC 3.70 L (4.30-5.90) m/uL Hgb 11.6 L (13.0-17.5) gm/dL Hct 36.3 L (39.0-53.0) % MCV (80.0-100.0) fL Neutrophils # (1.3-7.7) k/uL PT (9.0-12.0) sec INR (<1.2) APTT 46.2 H (22.0-30.0) sec Creatinine 1.49 H (0.66-1.25) mg/dL POC Glucose (mg/dL) (75-99) mg/dL Calcium 8.1 L (8.4-10.2) mg/dL Total Bilirubin 1.9 H (0.2-1.3) mg/dL AST 110 H (17-59) U/L ALT 175 H (4-49) U/L Total Protein 5.9 L (6.3-8.2) g/dL Albumin 3.1 L (3.5-5.0) g/dL 08/31/20 Range/Units 07:43 WBC (3.8-10.6) k/uL RBC (4.30-5.90) m/uL Hgb (13.0-17.5) gm/dL Hct (39.0-53.0) % MCV (80.0-100.0) fL Neutrophils # (1.3-7.7) k/uL PT (9.0-12.0) sec INR (<1.2) APTT 37.6 H (22.0-30.0) sec Creatinine (0.66-1.25) mg/dL POC Glucose (mg/dL) (75-99) mg/dL Calcium (8.4-10.2) mg/dL Total Bilirubin (0.2-1.3) mg/dL AST (17-59) U/L ALT (4-49) U/L Total Protein (6.3-8.2) g/dL Albumin (3.5-5.0) g/dL Assessment and Plan Assessment: Assessment #1 generalized weakness and fatigue #2 sinus tachycardia #3 acute cholecystitis #4 mildly abnormal cardiac enzymes #5 multiple comorbid conditions Plan #1 I would advise a conservative medical approach regarding the abnormal cardiac enzymes giving the absence of chest pain and chest discomfort and ischemic ST and T wave abnormalities #2 follow-up on the echocardiogram #3 DC heparin #4 the patient can proceed with the surgery
--- NOTE | 2020-08-31 11:00 | ECHOF ---
Referral Reason:assess valves/function MEASUREMENTS -------- HEIGHT: 177.8 cm WEIGHT: 97.5 kg BP: 123/71 RVIDd: 4.0 cm (< 3.3) IVSd: 1.2 cm (0.6 - 1.1) LVIDd: 3.3 cm (3.9 - 5.3) LVPWd: 1.3 cm (0.6 - 1.1) IVSs: 1.3 cm LVIDs: 2.0 cm LVPWs: 1.6 cm LAESV Index (A-L): 28.72 ml/m Ao Diam: 3.6 cm (2.0 - 3.7) AV Cusp: 1.4 cm (1.5 - 2.6) MV E Thony: 0.76 m/s MV DecT: 180 ms MV A Thony: 1.11 m/s MV E/A Ratio: 0.69 AV maxP.00 mmHg AV meanP.05 mmHg RAP: 5.00 mmHg RVSP: 44.12 mmHg FINDINGS -------- Sinus rhythm. This was a technically difficult study with suboptimal views. Patient is post cardiac catheterization and cannot be in left lateral position. The left ventricular size is normal. There is mild concentric left ventricular hypertrophy. Overa ll left ventricular systolic function is low-normal with, an EF between 50 - 55 %. The right ventricle is moderate to severely enlarged. The right atrium is mildly enlarged. 5.0mg of Lumason was utilized for enhancement of images Interatrial and interventricular septum intact. There is no evidence of aortic regurgitation. There is moderate aortic stenosis present. Peak/laura n gradient across the Aortic Valve is 36.00mmHg / 22.05mmHg. There is trace mitral regurgitation. [id number] tricuspid regurgitation present. There is mild to moderate pulmonary hypertension. The right ventricular systolic pressure, as measured by Doppler, is 44.12mmHg. There is no pulmonic regurgitation present. The aortic root size is normal. IVC Not well visulized. There is no pericardial effusion. CONCLUSIONS -------- 1. The left ventricular size is normal. 2. There is mild concentric left ventricular hypertrophy. 3. Overall left ventricular systolic function is low-normal with, an EF between 50 - 55 %. 4. The right ventricle is moderate to severely enlarged. 5. The right atrium is mildly enlarged. 6. There is moderate aortic stenosis present. 7. Peak/mean gradient across the Aortic Valve is 36.00mmHg / 22.05mmHg. 8. There is trace mitral regurgitation. 9. [id number] tricuspid regurgitation present. 10. There is mild to moderate pulmonary hypertension. 11. The right ventricular systolic pressure, as measured by Doppler, is 44.12mmHg. [employer]ICAL ENGINEER: Sydney Jacques RDCS
--- NOTE | 2020-08-31 11:43 | P.PN ---
Subjective Progress Note Date: 08/31/20 Principal diagnosis: Abdominal pain, elevated LFTs This patient is an 85-year-old pleasant white male who came in with complaints of abdominal pain and a recent fall at home. His symptoms have been vague as well as his account of events, but he is states over the past several weeks he has had abdominal pain. He states within the lower abdominal area but also in the right upper quadrant and epigastric area, He has had nausea but no vomiting. He states the pain is intermittent and has been off-and-on. He's had no rectal bleeding or melena. He works no acute changes through the night. He remains afebrile denies any chills. Cold bladder ultrasound shows liver with increased attenuation, focal fatty sparing adjacent to gallbladder, enlarged gallbladder thickened wall, non-shadowing stone and neck, CBD reported as dilated however measuring 0.7 cm. Correlate for acute cholecystitis. Gen. surgery has been consulted, Dr. Sanderson saw the patient this morning and according to his note at this time is not planning any surgical intervention. Objective - Vital Signs Vital signs: Vital Signs Temp 97.5 F L 08/31/20 08:00 Pulse 94 08/31/20 08:00 Resp 22 08/31/20 08:00 BP 129/84 08/31/20 08:00 Pulse Ox 94 L 08/31/20 08:00 Intake & Output 08/30/20 08/31/20 08/31/20 18:59 06:59 18:59 Intake Total 490.925 167.134 Output Total 300 100 Balance 190.925 67.134 Weight 97.522 kg 129.9 kg Intake: Intake, IV Titration 14.925 167.134 Amount Heparin Sod,Pork in 0.45% 14.925 167.134 NaCl 25,000 unit In 0.45 % NaCl 1 250ml.bag @ 10. 254 UNITS/KG/HR 10 mls/hr IV .Q24H [facility] Rx#: [id number] Oral 476 Output: Urine 300 100 Other: Voiding Method Urinal # Voids 1 1 # Bowel Movements 1 1 - Exam General appearance: The patient is alert, oriented, appears in no acute distress. Obese. HET: Head is normocephalic and atraumatic. Conjunctiva pink. Sclera anicteric. Neck: Supple without lymphadenopathy. Abdomen: Soft, obese, right upper quadrant, epigastric tenderness, nondistended with bowel sounds. No guarding or rigidity. Extremities: Normal skin color and turgor. No pedal edema Skin: No rashes, no jaundice Neurological: No focal deficits. Alert and oriented 3. - Labs CBC & Chem 7: 08/31/20 07:43 08/31/20 07:43 Labs: Abnormal Lab Results - Last 24 Hours (Table) 08/30/20 08/30/20 08/30/20 Range/Units 10:51 10:51 11:42 WBC 10.8 H (3.8-10.6) k/uL RBC 3.72 L (4.30-5.90) m/uL Hgb 12.0 L (13.0-17.5) gm/dL Hct 38.1 L (39.0-53.0) % MCV 102.5 H (80.0-100.0) fL Neutrophils # 8.4 H (1.3-7.7) k/uL PT 12.1 H (9.0-12.0) sec INR 1.2 H (<1.2) APTT (22.0-30.0) sec Creatinine (0.66-1.25) mg/dL POC Glucose (mg/dL) 121 H (75-99) mg/dL Calcium (8.4-10.2) mg/dL Total Bilirubin (0.2-1.3) mg/dL AST (17-59) U/L ALT (4-49) U/L Total Protein (6.3-8.2) g/dL Albumin (3.5-5.0) g/dL 08/30/20 08/30/20 08/30/20 Range/Units 16:19 16:45 20:13 WBC (3.8-10.6) k/uL RBC (4.30-5.90) m/uL Hgb (13.0-17.5) gm/dL Hct (39.0-53.0) % MCV (80.0-100.0) fL Neutrophils # (1.3-7.7) k/uL PT (9.0-12.0) sec INR (<1.2) APTT 31.5 H (22.0-30.0) sec Creatinine (0.66-1.25) mg/dL POC Glucose (mg/dL) 171 H 166 H (75-99) mg/dL Calcium (8.4-10.2) mg/dL Total Bilirubin (0.2-1.3) mg/dL AST (17-59) U/L ALT (4-49) U/L Total Protein (6.3-8.2) g/dL Albumin (3.5-5.0) g/dL 08/30/20 08/31/20 08/31/20 Range/Units 23:38 07:43 07:43 WBC (3.8-10.6) k/uL RBC 3.70 L (4.30-5.90) m/uL Hgb 11.6 L (13.0-17.5) gm/dL Hct 36.3 L (39.0-53.0) % MCV (80.0-100.0) fL Neutrophils # (1.3-7.7) k/uL PT (9.0-12.0) sec INR (<1.2) APTT 46.2 H (22.0-30.0) sec Creatinine 1.49 H (0.66-1.25) mg/dL POC Glucose (mg/dL) (75-99) mg/dL Calcium 8.1 L (8.4-10.2) mg/dL Total Bilirubin 1.9 H (0.2-1.3) mg/dL AST 110 H (17-59) U/L ALT 175 H (4-49) U/L Total Protein 5.9 L (6.3-8.2) g/dL Albumin 3.1 L (3.5-5.0) g/dL 08/31/20 Range/Units 07:43 WBC (3.8-10.6) k/uL RBC (4.30-5.90) m/uL Hgb (13.0-17.5) gm/dL Hct (39.0-53.0) % MCV (80.0-100.0) fL Neutrophils # (1.3-7.7) k/uL PT (9.0-12.0) sec INR (<1.2) APTT 37.6 H (22.0-30.0) sec Creatinine (0.66-1.25) mg/dL POC Glucose (mg/dL) (75-99) mg/dL Calcium (8.4-10.2) mg/dL Total Bilirubin (0.2-1.3) mg/dL AST (17-59) U/L ALT (4-49) U/L Total Protein (6.3-8.2) g/dL Albumin (3.5-5.0) g/dL Assessment and Plan (1) Abdominal pain Narrative/Plan: The 85-year-old gentleman who presented to the emergency department after sust aining a fall. He also had stated he's been having chronic intermittent abdominal pain for last few weeks duration. Pain is mostly located in the upper abdomen in the right upper quadrant area and occasionally in the left lower quadrant area. Computed tomography scan of the abdomen did not show significant abnormality other than mild haziness of the mesentery suspicious for mesenteric panniculitis, but this did not change from the prior computed tomography scan done a few months ago. He was also noted to have elevated serum transaminases. At this time possibility of biliary obstruction versus hepatocellular process needs to be considered. Computed tomography scan showed fatty liver but normal- appearing gallbladder. Gallbladder ultrasound ordered which found the liver to have increased attenuation, focal fatty sparing adjacent to gallbladder, and enlarged. Gallbladder with a thickened wall, non-shadowing stone in neck. CBD reported as dilated, measuring 0.7 cm. Correlate for acute cholecystitis. Liver enzymes are trending down. Today's labs bilirubin 1.9 alkaline phosphata se 100, AST 110, ALT 175 and hepatitis serology nonreactive 3. Current Visit: Yes Status: Acute Code(s): R10.9 - UNSPECIFIED ABDOMINAL PAIN SNOMED Code(s): 60832677 (2) Diabetes mellitus Current Visit: Yes Status: Acute Code(s): E11.9 - TYPE 2 DIABETES MELLITUS WITHOUT COMPLICATIONS SNOMED Code(s): 38243157 (3) Chronic kidney disease (CKD) Current Visit: Yes Status: Acute Code(s): N18.9 - CHRONIC KIDNEY DISEASE, UNSPECIFIED SNOMED Code(s): 013951415 (4) Obesity Current Visit: Yes Status: Acute Code(s): E66.9 - OBESITY, UNSPECIFIED SNOMED Code(s): 789288359 (5) Troponin level elevated Current Visit: Yes Status: Acute Code(s): R77.8 - OTHER SPECIFIED ABNORMALITIES OF PLASMA PROTEINS SNOMED Code(s): 608988254 Plan: 1. Supportive care 2. Ultrasound of gallbladder ordered and reviewed, no evidence of biliary ductal dilation 3. Hepatitis serologies ordered and reviewed, A, B, and C negative 4. Continue to monitor LFTs closely 5. Continue with Protonix 40 mg daily 6. Appreciate cardiology recommendations 7. Await recommendations from surgical services 8. There are no indications for any further workup from gastroenterology at this point in time as LFTs are trending down and there is no evidence of biliary obstruction Thank you for this consultation we will continue to follow Dr. Hilda Isaac I agree with the dictator's note, documented as a scribe by Ashley Flood.
[2020-08-31 12:17] LABS: Glucose,Whole Blood 95 mg/dL (75-99)
--- NOTE | 2020-08-31 13:39 | P.PN ---
Subjective Progress Note Date: 08/31/20 This is an 85-year-old male patient of Dr. Larkin with past medical history of hypertension, hypertensive cardiovascular disease, hyperlipidemia, gastroesophageal reflux disease, diabetes mellitus type 2, obesity with obstructive sleep apnea and obesity hypoventilation syndrome, generalized osteo arthritis, chronic kidney disease stage IIIb. Patient presented to the hospital due to a fall at home. Patient states that he was in the bathroom and the fire department had to come and help him. He has been experiencing chills, generalized weakness over the past week. Patient also has abdominal pain in the upper area right of midline. No nausea or vomiting. Patient complains of shortness of breath. Patient was found to be afebrile, heart rate initially 125 bpm, blood pressure 112/60, pulse ox 95% on room air. WBC 9.9, hemoglobin 12.5, platelet count 168. INR 1.0. Sodium 136, potassium 4.3, CO2 21, BUN 18 and creatinine 1.48 which appears to be his baseline. Blood sugar 288. Initial lactic acid 2.1. Patient is status post 1 L of IV fluids and 1.5 L additional ordered. Troponin 0.061, 0.163 and 0.254. Urinalysis clear with glucose 4+, ketones 1+. Total bilirubin 2.5, AST 359, ALT 236, alkaline phosphatase 124. Coronavirus PCR not detected. CAT scan of the abdomen and pelvis revealed no evidence of bowel ischemia. Colonic diverticulosis. Amylase seen as of the mid abdomen mesentery with small nodes similar to prior. 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 CTA of the chest revealed no central pulmonary embolism. Enlarged pulmonary arteries reflect pulmonary artery hype rtension. Mild basilar atelectasis. Ultrasound gallbladder reveals acute cholecystitis. Patient remains in the emergency center waiting for a bed on the cardiac stepdown unit. Heparin drip added, consult with pulmonary medicine, GI and general surgery. 06/30 and patient examined bedside sitting in the recliner. It appears calm and comfortable. He does have some mild epigastric abdominal pain but denies any nausea or vomiting. He was evaluated by surgery who deemed patient high risk for any open cholecystectomy at this point. Dr. Purcell recommended ultrasound of the abdomen that did show acute cholecystitis. Hepatitis panel negative. Troponin elevated from 0.061 --- 0.163 --- 0.254. Patient evaluated by the cardiology, heparin drip was discontinued. Since patient does not have any chest pain with no ST-T wave changes. Echocardiogram ordered. Conservative medical approach was recommended. That is evaluated today suggest 97.5 pulse 94 blood pressure 129/84. Metoprolol initiated 25 mg twice daily. Continue antibiotics Zosyn. We will discontinue IV fluids today REVIEW OF SYSTEMS Constitutional: No fever, no chills, no night sweats. No weight change. Reports weakness, Reports fatigue. EENT: No headache. No blurred vision or double vision, no loss of vision. Reports loss of Hearing. No nasal drainage or congestion. No epistaxis. No sore throat. Lungs: Reports shortness of breath, cough, no sputum production. No wheezing. Cardiovascular: No chest pain, no lower extremity edema. No palpitations. No paroxysmal nocturnal dyspnea. No orthopnea. No lightheadedness or dizziness. No syncopal episodes. Abdominal: Right upper quadrant abdominal pain. Dry heaving resolved No nausea, vomiting. No diarrhea. No constipation. No bloody or tarry stools.. No loss of appetite. Genitourinary: No dysuria, increased frequency, urgency. No urinary retention. Musculoskeletal: No myalgias. Reports muscle weakness, Reports gait dysf unction, Reports falls. No back pain. No neck pain. Integumentary: No wounds, no lesions. No rash or pruritus. Neurologic: No aphasia. No facial droop. No change in mentation. No head injury. No headache. No paralysis. No paresthesia. Psychiatric: No depression. No anxiety. N Endocrine: No abnormal blood sugars. Objective - Vital Signs Vital signs: Vital Signs Temp 97.5 F L 08/31/20 08:00 Pulse 90 08/31/20 09:00 Resp 20 08/31/20 09:00 BP 131/94 08/31/20 09:00 Pulse Ox 96 08/31/20 09:00 Intake & Output 08/30/20 08/31/20 08/31/20 18:59 06:59 18:59 Intake Total 490.925 167.134 Output Total 300 100 200 Balance 190.925 67.134 -200 Weight 97.522 kg 129.9 kg Intake: Intake, IV Titration 14.925 167.134 Amount Heparin Sod,Pork in 0.45% 14.925 167.134 NaCl 25,000 unit In 0.45 % NaCl 1 250ml.bag @ 10. 254 UNITS/KG/HR 10 mls/hr IV .Q24H [facility] Rx#: [id number] Oral 476 Output: Urine 300 100 200 Other: Voiding Method Urinal # Voids 1 1 # Bowel Movements 1 1 - Exam PHYSICAL EXAMINATION Gen: This is an 85-year-old male. Patient is resting on the ER stretcher. Patient appears to be ill. HEENT: Head is atraumatic, normocephalic. Pupils equal, round. Sclerae is anicteric. NECK: Supple. No JVD. No lymphadenopathy. No thyromegaly. LUNGS: Diminished but otherwise Clear to auscultation. No wheezes or rhonchi. No intercostal retractions. HEART: Regular rate and rhythm. No murmur. ABDOMEN: Soft. Bowel sounds are present. No masses. No tenderness. EXTREMITIES: No pedal edema. No calf tenderness. Dorsalis pedis palpable bilaterally. NEUROLOGICAL: Patient is awake, alert and oriented x3. Cranial nerves 2 through 12 are grossly intact. - Labs CBC & Chem 7: 08/31/20 07:43 08/31/20 07:43 Labs: Abnormal Lab Results - Last 24 Hours (Table) 08/30/20 08/30/20 08/30/20 Range/Units 16:19 16:45 20:13 RBC (4.30-5.90) m/uL Hgb (13.0-17.5) gm/dL Hct (39.0-53.0) % APTT 31.5 H (22.0-30.0) sec Creatinine (0.66-1.25) mg/dL POC Glucose (mg/dL) 171 H 166 H (75-99) mg/dL Calcium (8.4-10.2) mg/dL Total Bilirubin (0.2-1.3) mg/dL AST (17-59) U/L ALT (4-49) U/L Total Protein (6.3-8.2) g/dL Albumin (3.5-5.0) g/dL 08/30/20 08/31/20 08/31/20 Range/Units 23:38 07:43 07:43 RBC 3.70 L (4.30-5.90) m/uL Hgb 11.6 L (13.0-17.5) gm/dL Hct 36.3 L (39.0-53.0) % APTT 46.2 H (22.0-30.0) sec Creatinine 1.49 H (0.66-1.25) mg/dL POC Glucose (mg/dL) (75-99) mg/dL Calcium 8.1 L (8.4-10.2) mg/dL Total Bilirubin 1.9 H (0.2-1.3) mg/dL AST 110 H (17-59) U/L ALT 175 H (4-49) U/L Total Protein 5.9 L (6.3-8.2) g/dL Albumin 3.1 L (3.5-5.0) g/dL 08/31/20 Range/Units 07:43 RBC (4.30-5.90) m/uL Hgb (13.0-17.5) gm/dL Hct (39.0-53.0) % APTT 37.6 H (22.0-30.0) sec Creatinine (0.66-1.25) mg/dL POC Glucose (mg/dL) (75-99) mg/dL Calcium (8.4-10.2) mg/dL Total Bilirubin (0.2-1.3) mg/dL AST (17-59) U/L ALT (4-49) U/L Total Protein (6.3-8.2) g/dL Albumin (3.5-5.0) g/dL Assessment and Plan Assessment: ASSESSMENT AND PLAN 1. Troponinemia sec to type 2 NH off heparin drip, continue aspirin, cardiology rec appreciated. metoprolol started at 25 m gpo BID . echo pending Continue Nitrostat. 2. Elevated liver enzymes with acute cholecystitis. Consult with GI and general surgery.on Zosyn. Patient deemed to be high risk for surgery continue medical management 3. SIRS with lactic acidosis and tachycardia with acute cholecystitis. Patient is status post post fluid resuscitation. Lactic acid is normal. She was started on Zosyn 3.375 g IV piggyback every 8 hours. 4. Generalized weakness multifactorial acute cholecystitis, lactic acidosis and SIRS. 5. Hypertension, hypertensive cardiovascular disease. Follow-up blood pressure is on the low side. Hold lisinopril. 6. Hyperlipidemia. Hold statin due to elevated liver function tests. 7. Diabetes mellitus type 2. Hold glipizide and metformin. Patient will be placed on NovoLog scale before meals and at bedtime. 8. Obesity with obstructive sleep apnea and obesity hypoventilation syndrome. Patient may have CPAP brought from home. 9. Gastroesophageal reflux disease and GI prophylaxis. Continue omeprazole or equivalent. 10. Benign prostatic hypertrophy. Continue Flomax 0.4 mg twice daily. 11. Chronic kidney disease stage IIIb. Lisinopril and Lasix on hold. 12. DVT prophylaxis. Heparin drip. 13. Generalized debility PTOT consult #14 disposition to be decided
[2020-08-31 17:07] LABS: Glucose,Whole Blood 188 mg/dL (75-99)
[2020-08-31 21:13] LABS: Glucose,Whole Blood 159 mg/dL (75-99)
[2020-08-31] MEDS: METOPROLOL TARTRATE 25 MG TAB PO SCH (21:40)
[2020-08-31] MEDS: INSULIN DETEMIR (LEVEMIR) 100 UNIT/ML SYR SQ SCH (21:40)
[2020-09-01] MEDS: PIPERACILLIN-TAZOBACTAM 3.375 GM in SODIUM CHLORIDE 0.9% 100 ML IVPB SCH ×3 (02:09→17:32)
[2020-09-01 06:28] LABS: Glucose,Whole Blood 96 mg/dL (75-99)
[2020-09-01] MEDS: PANTOPRAZOLE 40 MG TABLET PO SCH (07:17)
[2020-09-01] MEDS: INSULIN ASPART (NovoLOG) 100 UNIT/ML VIAL SQ SCH ×4 (07:21→20:42)
[2020-09-01] MEDS: TAMSULOSIN 0.4 MG CAP.ER.24H PO SCH ×2 (08:09→17:31)
[2020-09-01] MEDS: METOPROLOL TARTRATE 25 MG TAB PO SCH ×2 (08:09→20:07)
[2020-09-01] MEDS: ASPIRIN 325 MG TAB PO SCH (08:09)
[2020-09-01] MEDS: MULTIVITAMINS, THERA 1 EACH TAB PO SCH (08:09)
[2020-09-01 08:12] LABS: Basophils % (A) 1 %; Eosinophils # (A) 0.2 k/uL (0-0.7); Eosinophils % (A) 3 %; HCT 37.6 % (39.0-53.0); HGB 12.3 gm/dL (13.0-17.5); Lymphocytes # (A) 1.7 k/uL (1.0-4.8); Lymphocytes % (A) 27 %; MCH 31.9 pg (25.0-35.0); MCHC 32.7 g/dL (31.0-37.0); MCV 97.6 fL (80.0-100.0); Mean Platelet Volume 7.6; Monocytes # (A) 0.4 k/uL (0-1.0); Monocytes % (A) 6 %; Neutrophils # (A) 3.8 k/uL (1.3-7.7); Neutrophils % (A) 61 %; Platelet Count 156 k/uL (150-450); RBC 3.85 m/uL (4.30-5.90); RDW 13.4 % (11.5-15.5); WBC 6.2 k/uL (3.8-10.6)
--- NOTE | 2020-09-01 11:21 | P.PN ---
Subjective Progress Note Date: 09/01/20 Principal diagnosis: Abdominal pain, elevated LFTs Patient is seen and examined sitting up in his bedside chair. Patient states he's feeling much better today. Had a large bowel movement which he states it is loose, nonbloody. He denies any nausea or vomiting. He states his abdominal pain has improved. He is tolerating his diet. LFTs continued to trend down. Bilirubin normal at 1.2. Objective - Vital Signs Vital signs: Vital Signs Temp 97.9 F 09/01/20 08:00 Pulse 84 09/01/20 08:00 Resp 20 09/01/20 08:00 BP 167/91 09/01/20 08:00 Pulse Ox 95 09/01/20 08:00 Intake & Output 08/31/20 09/01/20 09/01/20 18:59 06:59 18:59 Intake Total 840 240 Output Total 200 825 300 Balance 640 -825 -60 Weight 130.4 kg Intake: Oral 840 240 Output: Urine 200 825 300 Other: Voiding Method Urinal # Voids 1 # Bowel Movements 3 1 1 - Exam General appearance: The patient is alert, oriented, appears in no acute distress. Obese. HET: Head is normocephalic and atraumatic. Conjunctiva pink. Sclera anicteric. Neck: Supple without lymphadenopathy. Abdomen: Soft, obese, nontender, nondistended with bowel sounds. No guarding or rigidity. Extremities: Normal skin color and turgor. No pedal edema Skin: No rashes, no jaundice Neurological: No focal deficits. Alert and oriented 3. - Labs CBC & Chem 7: 09/01/20 07:30 09/01/20 11:37 Labs: Abnormal Lab Results - Last 24 Hours (Table) 08/31/20 08/31/20 09/01/20 Range/Units 16:59 21:11 07:30 RBC 3.85 L (4.30-5.90) m/uL Hgb 12.3 L (13.0-17.5) gm/dL Hct 37.6 L (39.0-53.0) % POC Glucose (mg/dL) 188 H 159 H (75-99) mg/dL Microbiology - Last 24 Hours (Table) 08/30/20 10:51 Blood Culture - Preliminary Blood No Growth after 24 hours Assessment and Plan (1) Abdominal pain Narrative/Plan: The 85-year-old gentleman who presented to the emergency department after sustaining a fall. He also had stated he's been having chronic intermittent abdominal pain for last few weeks duration. Pain is mostly located in the upper abdomen in the right upper quadrant area and occasionally in the left lower quadrant area. Computed tomography scan of the abdomen did not show significant abnormality other than mild haziness of the mesentery suspicious for mesenteric panniculitis, but this did not change from the prior computed tomography scan done a few months ago. He was also noted to have elevated serum transaminases. At this time possibility of biliary obstruction versus hepatocellular process needs to be considered. Computed tomography scan showed fatty liver but normal- appearing gallbladder. Gallbladder ultrasound ordered which found the liver to have increased attenuation, focal fatty sparing adjacent to gallbladder, and enlarged. Gallbladder with a thickened wall, non-shadowing stone in neck. CBD reported as dilated, measuring 0.7 cm. Correlate for acute cholecystitis. Liver enzymes are trending down. Today's labs bilirubin 1.2 alkaline phosphatase 110, AST 55, ALT 121 and hepatitis serology nonreactive 3. Abdominal pain improved. Current Visit: Yes Status: Acute Code(s): R10.9 - UNSPECIFIED ABDOMINAL PAIN SNOMED Code(s): 04975159 (2) Diabetes mellitus Current Visit: Yes Status: Acute Code(s): E11.9 - TYPE 2 DIABETES MELLITUS WITHOUT COMPLICATIONS SNOMED Code(s): 54164403 (3) Chronic kidney disease (CKD) Current Visit: Yes Status: Acute Code(s): N18.9 - CHRONIC KIDNEY DISEASE, UNSPECIFIED SNOMED Code(s): 938653822 (4) Obesity Current Visit: Yes Status: Acute Code(s): E66.9 - OBESITY, UNSPECIFIED SNOMED Code(s): 920959524 (5) Troponin level elevated Narrative/Plan: Cardiology following Current Visit: Yes Status: Acute Code(s): R77.8 - OTHER SPECIFIED ABNORMALITIES OF PLASMA PROTEINS SNOMED Code(s): 839493640 Plan: 1. Supportive care 2. Ultrasound of gallbladder ordered and reviewed, no evidence of biliary ductal dilation 3. Hepatitis serologies ordered and reviewed, A, B, and C negative 4. Continue with Protonix 40 mg daily 5. Surgical service is on consult 6. There are no indications for any further workup from gastroenterology at this point in time as LFTs are trending down and there is no evidence of biliary obstruction Thank you for this consultation we will sign off at this time. Dr. Martinez I agree with the dictator's note, documented as a scribe by Ashley Flood.
--- NOTE | 2020-09-01 11:53 | P.PN ---
Subjective Progress Note Date: 09/01/20 Principal diagnosis: Abnormal cardiac enzymes This is an 85-year-old gentleman with a past medical history significant for obesity and hypertension and dyslipidemia was admitted to the hospital with generalized weakness and fatigue. We consulted to see the patient because of ab normal cardiac enzymes. When the patient presented to the hospital he was in sinus tachycardia. Also he was diagnosed with acute cholecystitis and currently general surgery is on the case. The patient was seen today. He is doing great from a cardiovascular standpoint of view. Hemodynamically the patient is a stable. No plan to undergo any surgery on the gallbladder at this point. From the cardiac standpoint. Continue current medical regimen. Objective - Vital Signs Vital signs: Vital Signs Temp 97.9 F 09/01/20 08:00 Pulse 84 09/01/20 08:00 Resp 20 09/01/20 08:00 BP 167/91 09/01/20 08:00 Pulse Ox 95 09/01/20 08:00 Intake & Output 08/31/20 09/01/20 09/01/20 18:59 06:59 18:59 Intake Total 840 240 Output Total 200 825 300 Balance 640 -825 -60 Weight 130.4 kg Intake: Oral 840 240 Output: Urine 200 825 300 Other: Voiding Method Urinal # Voids 1 # Bowel Movements 3 1 1 - Constitutional General appearance: Present: no acute distress - Respiratory Respiratory: bilateral: CTA - Cardiovascular Rhythm: regular Heart sounds: normal: S1, S2 - Labs CBC & Chem 7: 09/01/20 07:30 08/31/20 07:43 Labs: Abnormal Lab Results - Last 24 Hours (Table) 08/31/20 08/31/20 09/01/20 Range/Units 16:59 21:11 07:30 RBC 3.85 L (4.30-5.90) m/uL Hgb 12.3 L (13.0-17.5) gm/dL Hct 37.6 L (39.0-53.0) % POC Glucose (mg/dL) 188 H 159 H (75-99) mg/dL Microbiology - Last 24 Hours (Table) 08/30/20 10:51 Blood Culture - Preliminary Blood No Growth after 24 hours Assessment and Plan Assessment: Assessment #1 generalized weakness and fatigue #2 sinus tachycardia #3 acute cholecystitis #4 mildly abnormal cardiac enzymes #5 multiple comorbid conditions Plan #1 continue the current medical regimen #2 follow-up with the patient
[2020-09-01 12:00] LABS: Glucose,Whole Blood 171 mg/dL (75-99)
[2020-09-01 12:49] LABS: Albumin 3.2 g/dL (3.5-5.0); Calcium 8.3 mg/dL (8.4-10.2); Total Bilirubin 1.2 mg/dL (0.2-1.3); Total Protein 6.1 g/dL (6.3-8.2)
[2020-09-01 12:50] LABS: Potassium 4.7 mmol/L (3.5-5.1)
--- NOTE | 2020-09-01 15:12 | P.PN ---
Subjective Progress Note Date: 09/01/20 Principal diagnosis: Abdominal pain This is an 85-year-old male patient of Dr. Larkin with past medical history of hypertension, hypertensive cardiovascular disease, hyperlipidemia, gastroesophageal reflux disease, diabetes mellitus type 2, obesity with obstructive sleep apnea and obesity hypoventilation syndrome, generalized osteoarthritis, chronic kidney disease stage IIIb. Patient presented to the hospital due to a fall at home. Patient states that he was in the bathroom and the fire department had to come and help him. He has been experiencing chills, generalized weakness over the past week. Patient also has abdominal pain in the upper area right of midline. No nausea or vomiting. Patient complains of shortness of breath. Patient was found to be afebrile, heart rate initially 125 bpm, blood pressure 112/60, pulse ox 95% on room air. WBC 9.9, hemoglobin 12.5, platelet count 168. INR 1.0. Sodium 136, potassium 4.3, CO2 21, BUN 18 and creatinine 1.48 which appears to be his baseline. Blood sugar 288. Initial lactic acid 2.1. Patient is status post 1 L of IV fluids and 1.5 L additional ordered. Troponin 0.061, 0.163 and 0.254. Urinalysis clear with glucose 4+, ketones 1+. Total bilirubin 2.5, AST 359, ALT 236, alkaline phosphatase 124. Coronavirus PCR not detected. CAT scan of the abdomen and pelvis revealed no evidence of bowel ischemia. Colonic diverticulosis. Amylase seen as of the mid abdomen mesentery with small nodes similar to prior. 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 CTA of the chest revealed no central pulmonary embolism. Enlarged pulmonary arteries reflect pulmonary artery hypertension. Mild basilar atelectasis. Ultrasound gallbladder reveals acute cholecystitis. Patient remains in the emergency center waiting for a bed on the cardiac stepdown unit. Heparin drip added, consult with pulmonary medicine, GI and general surgery. 06/30 and patient examined bedside sitting in the recliner. It appears calm and comfortable. He does have some mild epigastric abdominal pain but denies any nausea or vomiting. He was evaluated by surgery who deemed patient high risk for any open cholecystectomy at this point. Dr. Purcell recommended ultrasound of the abdomen that did show acute cholecystitis. Hepatitis panel negative. Troponin elevated from 0.061 --- 0.163 --- 0.254. Patient evaluated by the cardiology, heparin drip was discontinued. Since patient does not have any chest pain with no ST-T wave changes. Echocardiogram ordered. Conservative medical approach was recommended. That is evaluated today suggest 97.5 pulse 94 blood pressure 129/84. Metoprolol initiated 25 mg twice daily. Continue ant ibiotics Zosyn. We will discontinue IV fluids today 07/01 patient appears comfortable sitting in the recliner. Does have mild right sided abdominal pain but denies any nausea or vomiting. He did have an episode of diarrhea this morning. Evaluate by surgery for surgical intervention at this point. Dr. Purcell review of the ultrasound of the abdomen and did not see any bile duct dilation ruled out acute cholecystitis. Elevated liver enzymes likely secondary to fatty liver disease or underlying hepatocellular process. Hepatitis panel is negative. Continue conservative treatment. Continue Protonix. PTOT is consulted for evaluation. CMP pending from today. If liver enzymes continued to trend down and patient's diarrhea resolves. Patient may be ready for discharge tomorrow. Patient's lisinopril, glipizide and metformin, and Lasix were held during hospitalization. Medication needs to be reconsulted prior to discharge with possible discontinuation of lisinopril REVIEW OF SYSTEMS Constitutional: No fever, no chills, no night sweats. No weight change. Reports weakness, Reports fatigue. EENT: No headache. No blurred vision or double vision, no loss of vision. Reports loss of Hearing. No nasal drainage or congestion. No epistaxis. No sore throat. Lungs: Reports shortness of breath, cough, no sputum production. No wheezing. Cardiovascular: No chest pain, no lower extremity edema. No palpitations. No paroxysmal nocturnal dyspnea. No orthopnea. No lightheadedness or dizziness. No syncopal episodes. Abdominal: Right upper quadrant abdominal pain. Dry heaving resolved No nausea, vomiting. Positive for diarrhea. No constipation. No bloody or tarry stools.. No loss of appetite. Genitourinary: No dysuria, increased frequency, urgency. No urinary retention. Musculoskeletal: No myalgias. Reports muscle weakness, Reports gait dysfunction, Reports falls. No back pain. No neck pain. Integumentary: No wounds, no lesions. No rash or pruritus. Neurologic: No aphasia. No facial droop. No change in mentation. No head injury. No headache. No paralysis. No paresthesia. Psychiatric: No depression. No anxiety. N Endocrine: No abnormal blood sugars. Objective - Vital Signs Vital signs: Vital Signs Temp 97.9 F 09/01/20 08:00 Pulse 84 09/01/20 08:00 Resp 20 09/01/20 08:00 BP 167/91 09/01/20 08:00 Pulse Ox 95 09/01/20 08:00 Intake & Output 08/31/20 09/01/20 09/01/20 18:59 06:59 18:59 Intake Total 840 240 Output Total 200 825 300 Balance 640 -825 -60 Weight 130.4 kg Intake: Oral 840 240 Output: Urine 200 825 300 Other: Voiding Method Urinal # Voids 1 # Bowel Movements 3 1 1 - Exam PHYSICAL EXAMINATION Gen: This is an 85-year-old male. Patient is resting on the ER stretcher. Patient appears to be ill. HEENT: Head is atraumatic, normocephalic. Pupils equal, round. Sclerae is anicteric. NECK: Supple. No JVD. No lymphadenopathy. No thyromegaly. LUNGS: Diminished but otherwise Clear to auscultation. No wheezes or rhonchi. No intercostal retractions. HEART: Regular rate and rhythm. No murmur. ABDOMEN: Soft. Bowel sounds are present. No masses. No tenderness. EXTREMITIES: No pedal edema. No calf tenderness. Dorsalis pedis palpable bilaterally. NEUROLOGICAL: Patient is awake, alert and oriented x3. Cranial nerves 2 through 12 are grossly intact. - Labs CBC & Chem 7: 09/01/20 07:30 09/01/20 11:37 Labs: Abnormal Lab Results - Last 24 Hours (Table) 08/31/20 08/31/20 09/01/20 Range/Units 16:59 21:11 07:30 RBC 3.85 L (4.30-5.90) m/uL Hgb 12.3 L (13.0-17.5) gm/dL Hct 37.6 L (39.0-53.0) % POC Glucose (mg/dL) 188 H 159 H (75-99) mg/dL Microbiology - Last 24 Hours (Table) 08/30/20 10:51 Blood Culture - Preliminary Blood No Growth after 24 hours Assessment and Plan Plan: ASSESSMENT AND PLAN 1. Troponinemia sec to type 2 MT off heparin drip, continue aspirin, cardiology rec appreciated. metoprolol 25 m gpo BID . echo revealed EF 50-55% with [id number] tricuspid regurgitation and [id number]-[id number] pulmonary h ypertension Continue Nitrostat. 2. Elevated liver enzymes , cholecystitis ruled out. No biliary obstruction on gallbladder ultrasound Likely secondary to hepatocellular process versus fatty liver disease Consult with GI and general surgery. continue Zosyn Patient deemed to be high risk for surgery continue medical management 3. SIRS with lactic acidosis and tachycardia with mild mesenteric panniculitis with diverticulosis Patient is status post post fluid resuscitation. Lactic acid is normal. on Zosyn 3.375 g IV piggyback every 8 hours. 4. Generalized weakness multifactorial , lactic acidosis and SIRS. PTOT consult 5. Hypertension, hypertensive cardiovascular disease. Follow-up blood pressure is on the low side. Hold lisinopril. 6. Hyperlipidemia. Hold statin due to elevated liver function tests. 7. Diabetes mellitus type 2. Hold glipizide and metformin. Patient will be placed on NovoLog scale before meals and at bedtime. 8. Obesity with obstructive sleep apnea and obesity hypoventilation syndrome. Patient may have CPAP brought from home. 9. Gastroesophageal reflux disease and GI prophylaxis. Continue omeprazole or equivalent. 10. Benign prostatic hypertrophy. Continue Flomax 0.4 mg twice daily. 11. Chronic kidney disease stage IIIb. Lisinopril and Lasix on hold. 12. DVT prophylaxis. Heparin drip. 13. Generalized debility PTOT consult #14 disposition to be decided
--- NOTE | 2020-09-01 15:45 | P.PN ---
Subjective Progress Note Date: 09/01/20 Patient seen and examined at bedside. Denies abdominal pain. Objective - Vital Signs Vital signs: Vital Signs Temp 97.9 F 09/01/20 08:00 Pulse 57 L 09/01/20 12:00 Resp 20 09/01/20 12:00 BP 100/61 09/01/20 12:00 Pulse Ox 94 L 09/01/20 12:00 Intake & Output 08/31/20 09/01/20 09/01/20 18:59 06:59 18:59 Intake Total 840 720 Output Total 200 825 601 Balance 640 -825 119 Weight 130.4 kg Intake: Oral 840 720 Output: Urine 200 825 600 Stool 1 Other: Voiding Method Urinal # Voids 1 # Bowel Movements 3 1 1 - Constitutional General appearance: Present: cooperative, no acute distress - Gastrointestinal Gastrointestinal Comment(s): Soft, nontender, nondistended, no rebound or guarding - Labs CBC & Chem 7: 09/01/20 07:30 09/01/20 11:37 Labs: Abnormal Lab Results - Last 24 Hours (Table) 08/31/20 08/31/20 09/01/20 Range/Units 16:59 21:11 07:30 RBC 3.85 L (4.30-5.90) m/uL Hgb 12.3 L (13.0-17.5) gm/dL Hct 37.6 L (39.0-53.0) % Sodium (137-145) mmol/L Creatinine (0.66-1.25) mg/dL Glucose (74-99) mg/dL POC Glucose (mg/dL) 188 H 159 H (75-99) mg/dL Calcium (8.4-10.2) mg/dL ALT (4-49) U/L Total Protein (6.3-8.2) g/dL Albumin (3.5-5.0) g/dL 09/01/20 09/01/20 Range/Units 11:37 11:59 RBC (4.30-5.90) m/uL Hgb (13.0-17.5) gm/dL Hct (39.0-53.0) % Sodium 135 L (137-145) mmol/L Creatinine 1.32 H (0.66-1.25) mg/dL Glucose 183 H (74-99) mg/dL POC Glucose (mg/dL) 171 H (75-99) mg/dL Calcium 8.3 L (8.4-10.2) mg/dL ALT 121 H (4-49) U/L Total Protein 6.1 L (6.3-8.2) g/dL Albumin 3.2 L (3.5-5.0) g/dL Microbiology - Last 24 Hours (Table) 08/30/20 10:51 Blood Culture - Preliminary Blood No Growth after 48 hours Assessment and Plan Plan: Currently, patient is not having any clinical finding of cholecystitis. Leukocytosis has resolved, patient is not having any abdominal pain and bilirubin has normalized. Liver enzymes continue to downward trend. We'll cont inue medical management at this point. No plan for surgical intervention at this time.
[2020-09-01 16:45] LABS: Glucose,Whole Blood 110 mg/dL (75-99)
[2020-09-01 20:36] LABS: Glucose,Whole Blood 199 mg/dL (75-99)
[2020-09-01] MEDS: INSULIN DETEMIR (LEVEMIR) 100 UNIT/ML SYR SQ SCH (20:42)
[2020-09-02] MEDS: PIPERACILLIN-TAZOBACTAM 3.375 GM in SODIUM CHLORIDE 0.9% 100 ML IVPB SCH ×3 (01:22→17:23)
[2020-09-02 04:34] LABS: Glucose,Whole Blood 66 mg/dL (75-99)
[2020-09-02 04:55] LABS: Glucose,Whole Blood 84 mg/dL (75-99)
[2020-09-02 06:33] LABS: Glucose,Whole Blood 91 mg/dL (75-99)
[2020-09-02] MEDS: INSULIN ASPART (NovoLOG) 100 UNIT/ML VIAL SQ SCH ×4 (06:35→20:37)
[2020-09-02] MEDS: PANTOPRAZOLE 40 MG TABLET PO SCH (06:50)
[2020-09-02 07:54] LABS: Basophils % (A) 1 %; Eosinophils # (A) 0.2 k/uL (0-0.7); Eosinophils % (A) 3 %; HCT 38.1 % (39.0-53.0); HGB 12.3 gm/dL (13.0-17.5); Lymphocytes # (A) 1.5 k/uL (1.0-4.8); Lymphocytes % (A) 25 %; MCH 31.4 pg (25.0-35.0); MCHC 32.2 g/dL (31.0-37.0); MCV 97.3 fL (80.0-100.0); Mean Platelet Volume 7.3; Monocytes # (A) 0.4 k/uL (0-1.0); Monocytes % (A) 6 %; Neutrophils # (A) 3.9 k/uL (1.3-7.7); Neutrophils % (A) 63 %; Platelet Count 175 k/uL (150-450); RBC 3.92 m/uL (4.30-5.90); RDW 13.5 % (11.5-15.5); WBC 6.2 k/uL (3.8-10.6)
[2020-09-02] MEDS: MULTIVITAMINS, THERA 1 EACH TAB PO SCH (09:44)
[2020-09-02] MEDS: METOPROLOL TARTRATE 25 MG TAB PO SCH ×2 (09:44→19:54)
[2020-09-02] MEDS: ASPIRIN 325 MG TAB PO SCH (09:44)
[2020-09-02] MEDS: TAMSULOSIN 0.4 MG CAP.ER.24H PO SCH ×2 (09:44→17:23)
[2020-09-02 12:15] LABS: Glucose,Whole Blood 237 mg/dL (75-99)
--- NOTE | 2020-09-02 13:28 | P.PN ---
Subjective Progress Note Date: 09/02/20 Principal diagnosis: Abdominal pain, acute cholecystitis, non-ST DC, worsening kidney function, type 2 diabetes, COPD, obstructive sleep apnea and hypertension. This is an 85-year-old male patient of Dr. Larkin with past medical history of hypertension, hypertensive cardiovascular disease, hyperlipidemia, gastroesophageal reflux disease, diabetes mellitus type 2, obesity with obstructive sleep apnea and obesity hypoventilation syndrome, generalized osteoarthritis, chronic kidney disease stage IIIb. Patient presented to the hospital due to a fall at home. Patient states that he was in the bathroom and the fire department had to come and help him. He has been experiencing chills, generalized weakness over the past week. Patient also has abdominal pain in the upper area right of midline. No nausea or vomiting. Patient complains of shortness of breath. Patient was found to be afebrile, heart rate initially 125 bpm, blood pressure 112/60, pulse ox 95% on room air. WBC 9.9, hemoglobin 12.5, platelet count 168. INR 1.0. Sodium 136, potassium 4.3, CO2 21, BUN 18 and creatinine 1.48 which appears to be his baseline. Blood sugar 288. Initial lactic acid 2.1. Patient is status post 1 L of IV fluids and 1.5 L additional ordered. Troponin 0.061, 0.163 and 0.254. Urinalysis clear with glucose 4+, ketones 1+. Total bilirubin 2.5, AST 359, ALT 236, alkaline phosphatase 124. Coronavirus PCR not detected. CAT scan of the abdomen and pelvis revealed no evidence of bowel ischemia. Colonic diverticulosis. Amylase seen as of the mid abdomen mesentery with small nodes similar to prior. 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 CTA of the chest revealed no central pulmonary embolism. Enlarged pulmonary arteries reflect pulmonary artery hypertension. Mild basilar atelectasis. Ultrasound gallbladder reveals acute cholecystitis. Patient remains in the emergency center waiting for a bed on the cardiac stepdown unit. Heparin drip added, consult with pulmonary medicine, GI and general surgery. 06/30 and patient examined bedside sitting in the recliner. It appears calm and comfortable. He does have some mild epigastric abdominal pain but denies any nausea or vomiting. He was evaluated by surgery who deemed patient high risk for any open cholecystectomy at this point. Dr. Purcell recommended ultrasound of the abdomen that did show acute cholecystitis. Hepatitis panel negative. Troponin elevated from 0.061 --- 0.163 --- 0.254. Patient evaluated by the cardiology, heparin drip was discontinued. Since patient does not have any chest pain with no ST-T wave changes. Echocardiogram ordered. Conservative medical approach was recommended. That is evaluated today suggest 97.5 pulse 94 blood pressure 129/84. Metoprolol initiated 25 mg twice daily. Continue antibiotics Zosyn. We will discontinue IV fluids today 07/01 patient appears comfortable sitting in the recliner. Does have mild right sided abdominal pain but denies any nausea or vomiting. He did have an episode of diarrhea this morning. Evaluate by surgery for surgical intervention at this point. Dr. Purcell review of the ultrasound of the abdomen and did not see any b ile duct dilation ruled out acute cholecystitis. Elevated liver enzymes likely secondary to fatty liver disease or underlying hepatocellular process. Hepatitis panel is negative. Continue conservative treatment. Continue Protonix. PTOT is consulted for evaluation. CMP pending from today. If liver enzymes continued to trend down and patient's diarrhea resolves. Patient may be ready for discharge tomorrow. Patient's lisinopril, glipizide and metformin, and Lasix were held during hospitalization. Medication needs to be reconsulted prior to discharge with possible discontinuation of lisinopril 09/02: Patient is doing slightly better today he knows when he was is not confused, hemodynamically is more stable. Troponin has not increased since, review his echocardiogram still showing well preserved ejection fraction mild valvular heart disease and mild pulmonary hypertension. Long discussion with the today patient is still on conservative and medical management only no surgical intervention needed to be done probably patient had an infection after having obstructive common duct to his acute cholecystitis no surgery needed at this point specially with his comorbidities extremely high. Patient is very debilitated not been able template and walk agreeable to start on PTOT possible plan for rehab on Friday. Objective - Vital Signs Vital signs: Vital Signs Temp 97.6 F 09/02/20 12:30 Pulse 74 09/02/20 12:30 Resp 18 09/02/20 12:30 BP 148/86 09/02/20 12:30 Pulse Ox 96 09/02/20 12:30 Intake & Output 09/01/20 09/02/20 09/02/20 18:59 06:59 18:59 Intake Total 720 475 480 Output Total 601 1175 100 Balance 119 -700 380 Weight 128.8 kg Intake: Oral 720 475 480 Output: Urine 600 1175 100 Stool 1 Other: Voiding Method Urinal Urinal # Voids 1 2 # Bowel Movements 1 - Exam REVIEW OF SYSTEMS Constitutional: No fever, no chills, no night sweats. No weight change. Reports weakness, Reports fatigue. EENT: No headache. No blurred vision or double vision, no loss of vision. Reports loss of Hearing. No nasal drainage or congestion. No epistaxis. No sore throat. Lungs: Reports shortness of breath, cough, no sputum production. No wheezing. Cardiovascular: No chest pain, no lower extremity edema. No palpitations. No paroxysmal nocturnal dyspnea. No orthopnea. No lightheadedness or dizziness. No syncopal episodes. Abdominal: Right upper quadrant abdominal pain. Dry heaving resolved No nausea, vomiting. Positive for diarrhea. No constipation. No bloody or tarry stools.. No loss of appetite. Genitourinary: No dysuria, increased frequency, urgency. No urinary retention. Musculoskeletal: No myalgias. Reports muscle weakness, Reports gait dysfunction, Reports falls. No back pain. No neck pain. Integumentary: No wounds, no lesions. No rash or pruritus. Neurologic: No aphasia. No facial droop. No change in mentation. No head injury. No headache. No paralysis. No paresthesia. Psychiatric: No depression. No anxiety. N Endocrine: No abnormal blood sugars. Physical examinations: General Appearance: Alert, cooperative, no distress, morbidly obese. Neck HEENT: Supple, no lymphadenopathy, no thyroid enlargement, no carotid bruits. Lungs: Decreased breaths bilaterally fine rhonchi no crackles slight decreased breath sounds in the right compared to the left. Chest Wall: Decrease expansion with deep inspiration no tenderness and no d eformity was found on exam, no costochondral pain or discomfort. Heart: Regular rate and rhythm, S1, S2 normal, no murmur, rub or gallop. Back: Symmetric, no curvature, ROM normal, no CVA tenderness. Abdomen: Distended with mild discomfort and tenderness in the right upper quadrant area. 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 Pulses: 2+ and symmetric. Skin: Skin color, texture, tugor normal, no rashes or lesions. Neurologic: Alert oriented x3 cranial nerves II through XII intact, no motor deficit, no abnormal balance or gait. - Labs CBC & Chem 7: 09/02/20 07:24 09/01/20 11:37 Labs: Abnormal Lab Results - Last 24 Hours (Table) 09/01/20 09/01/20 09/02/20 Range/Units 16:43 20:29 04:32 RBC (4.30-5.90) m/uL Hgb (13.0-17.5) gm/dL Hct (39.0-53.0) % POC Glucose (mg/dL) 110 H 199 H 66 L (75-99) mg/dL 09/02/20 09/02/20 Range/Units 07:24 12:13 RBC 3.92 L (4.30-5.90) m/uL Hgb 12.3 L (13.0-17.5) gm/dL Hct 38.1 L (39.0-53.0) % POC Glucose (mg/dL) 237 H (75-99) mg/dL Microbiology - Last 24 Hours (Table) 08/30/20 10:51 Blood Culture - Preliminary Blood No Growth after 48 hours Assessment and Plan Assessment: 1. SIRS with lactic acidosis and tachycardia with mild mesenteric panniculitis with diverticulosis Patient is status post post fluid resuscitation. Lactic acid is normal. on Zosyn 3.375 g IV piggyback every 8 hours. Continue current management, despite the source most likely hepatocellular in origin probably from the common duct through the acute cholecystitis no surgical intervention is needed this point. 2. Elevated liver enzymes , cholecystitis ruled out. No biliary obstruction on gallbladder ultrasound Likely secondary to hepatocellular process versus fatty liver disease Consult with GI and general surgery. continue Zosyn Patient deemed to be high risk for surgery continue medical management 3. Non-ST DC: off heparin drip, continue aspirin, cardiology rec appreciated. metoprolol 25 m gpo BID . echo revealed EF 50-55% with [id number] tr icuspid regurgitation and [id number] pulmonary hypertension Continue Nitrostat. 4. Generalized weakness multifactorial , lactic acidosis and SIRS. PTOT consult 5. Hypertension, hypertensive cardiovascular disease. Follow-up blood pressure is on the low side. Hold lisinopril. 6. Hyperlipidemia. Hold statin due to elevated liver function tests. 7. Diabetes mellitus type 2. Hold glipizide and metformin. Patient will be placed on NovoLog scale before meals and at bedtime. 8. Obesity with obstructive sleep apnea and obesity hypoventilation syndrome. Patient may have CPAP brought from home. 9. Gastroesophageal reflux disease and GI prophylaxis. Continue omeprazole or equivalent. 10. Benign prostatic hypertrophy. Continue Flomax 0.4 mg twice daily. 11. Chronic kidney disease stage IIIb. Lisinopril and Lasix on hold. 12. DVT prophylaxis. Heparin drip. 13. Generalized debility PTOT consult Discharge planning: Was start PTOT and plan probably to some patient's subacute rehab on Friday.
[2020-09-02 17:11] LABS: Glucose,Whole Blood 164 mg/dL (75-99)
--- NOTE | 2020-09-02 18:42 | P.PN ---
Subjective Progress Note Date: 09/02/20 Principal diagnosis: Abdominal pain, elevated liver enzymes Patient seen sitting bedside today. No acute complaints. Tolerating diet. No abdominal pain reported. Objective - Vital Signs Vital signs: Vital Signs Temp 97.4 F L 09/02/20 09:40 Pulse 79 09/02/20 09:40 Resp 20 09/02/20 09:40 BP 184/85 09/02/20 09:40 Pulse Ox 94 L 09/02/20 09:40 Intake & Output 09/01/20 09/02/20 09/02/20 18:59 06:59 18:59 Intake Total 720 475 480 Output Total 601 1175 100 Balance 119 -700 380 Weight 128.8 kg Intake: Oral 720 475 480 Output: Urine 600 1175 100 Stool 1 Other: Voiding Method Urinal Urinal # Voids 1 2 # Bowel Movements 1 - Exam On physical examination, patient appears comfortable in no apparent distress. HEAD: Normocephalic, atraumatic. EYES: No scleral icterus. No conjunctival injection. MOUTH: No lesions, tongue midline. NECK: Trachea midline, no gross abnormalities. ABDOMEN: Soft, obese, nontender to palpation. Bowel sounds are positive. No organomegaly. No guarding or rigidity. EXTREMITIES: No pedal edema. SKIN: No rashes, no jaundice. NEUROLOGIC: Alert and oriented. No focal deficits. - Labs CBC & Chem 7: 09/02/20 07:24 09/01/20 11:37 Labs: Abnormal Lab Results - Last 24 Hours (Table) 09/01/20 09/01/20 09/01/20 Range/Units 11:37 11:59 16:43 RBC (4.30-5.90) m/uL Hgb (13.0-17.5) gm/dL Hct (39.0-53.0) % Sodium 135 L (137-145) mmol/L Creatinine 1.32 H (0.66-1.25) mg/dL Glucose 183 H (74-99) mg/dL POC Glucose (mg/dL) 171 H 110 H (75-99) mg/dL Calcium 8.3 L (8.4-10.2) mg/dL ALT 121 H (4-49) U/L Total Protein 6.1 L (6.3-8.2) g/dL Albumin 3.2 L (3.5-5.0) g/dL 09/01/20 09/02/20 09/02/20 Range/Units 20:29 04:32 07:24 RBC 3.92 L (4.30-5.90) m/uL Hgb 12.3 L (13.0-17.5) gm/dL Hct 38.1 L (39.0-53.0) % Sodium (137-145) mmol/L Creatinine (0.66-1.25) mg/dL Glucose (74-99) mg/dL POC Glucose (mg/dL) 199 H 66 L (75-99) mg/dL Calcium (8.4-10.2) mg/dL ALT (4-49) U/L Total Protein (6.3-8.2) g/dL Albumin (3.5-5.0) g/dL Microbiology - Last 24 Hours (Table) 08/30/20 10:51 Blood Culture - Preliminary Blood No Growth after 48 hours Assessment and Plan (1) Abdominal pain Narrative/Plan: 85-year-old gentleman who presented to the emergency department after sustaining a fall. He also had stated he's been having chronic intermittent abdominal pain for last few weeks duration. Pain is mostly located in the upper abdomen in the right upper quadrant area and occasionally in the left lower quadrant area. Computed tomography scan of the abdomen did not show significant abnormality other than mild haziness of the mesentery suspicious for mesenteric panniculitis, but this did not change from the prior computed tomography scan done a few months ago. He was also noted to have elevated serum transaminases. At this time possibility of biliary obstruction versus hepatocellular process needs to be considered. Computed tomography scan showed fatty liver but normal- appearing gallbladder. Gallbladder ultrasound ordered which found the liver to have increased attenuation, focal fatty sparing adjacent to gallbladder, and enlarged. Gallbladder with a thickened wall, non-shadowing stone in neck. CBD reported as dilated, measuring 0.7 cm. Correlate for acute cholecystitis. Liver enzymes are trending down and clinically improving. Current Visit: Yes Status: Acute Code(s): R10.9 - UNSPECIFIED ABDOMINAL PAIN SNOMED Code(s): 02297764 (2) Elevated liver enzymes Current Visit: Yes Status: Acute Code(s): R74.8 - ABNORMAL LEVELS OF OTHER SERUM ENZYMES SNOMED Code(s): 712823411 Plan: Supportive care Okay for low-fat diet as tolerated Continue monitor CBC, BMP, LFTs Continue broad-spectrum antibiotic therapy Surgical service following No plan for endoscopic evaluation at this time Okay for discharge when otherwise medically stable Thank you for allowing us to participate in the care of the patient, the GI service will stand by, please call us back with any questions or concerns
[2020-09-02 20:36] LABS: Glucose,Whole Blood 138 mg/dL (75-99)
[2020-09-02] MEDS: INSULIN DETEMIR (LEVEMIR) 100 UNIT/ML SYR SQ SCH ×2 (20:37→20:41)
[2020-09-03] MEDS: PIPERACILLIN-TAZOBACTAM 3.375 GM in SODIUM CHLORIDE 0.9% 100 ML IVPB SCH ×3 (01:02→17:33)
[2020-09-03 06:28] LABS: Glucose,Whole Blood 142 mg/dL (75-99)
[2020-09-03] MEDS: INSULIN ASPART (NovoLOG) 100 UNIT/ML VIAL SQ SCH ×4 (06:46→20:39)
[2020-09-03] MEDS: PANTOPRAZOLE 40 MG TABLET PO SCH (06:46)
[2020-09-03 07:24] LABS: HCT 35.9 % (39.0-53.0); HGB 11.5 gm/dL (13.0-17.5); MCH 31.3 pg (25.0-35.0); MCHC 32.1 g/dL (31.0-37.0); MCV 97.4 fL (80.0-100.0); Mean Platelet Volume 7.2; Platelet Count 191 k/uL (150-450); RBC 3.68 m/uL (4.30-5.90); RDW 13.6 % (11.5-15.5); WBC 6.2 k/uL (3.8-10.6)
[2020-09-03 07:32] LABS: Albumin 3.3 g/dL (3.5-5.0); Calcium 9.3 mg/dL (8.4-10.2); Potassium 4.6 mmol/L (3.5-5.1); Total Bilirubin 1.1 mg/dL (0.2-1.3); Total Protein 6.1 g/dL (6.3-8.2)
[2020-09-03] MEDS: TAMSULOSIN 0.4 MG CAP.ER.24H PO SCH ×2 (08:45→17:34)
[2020-09-03] MEDS: METOPROLOL TARTRATE 25 MG TAB PO SCH ×2 (08:45→20:40)
[2020-09-03] MEDS: ASPIRIN 325 MG TAB PO SCH (08:45)
[2020-09-03] MEDS: MULTIVITAMINS, THERA 1 EACH TAB PO SCH (08:45)
--- NOTE | 2020-09-03 11:31 | P.PN ---
Subjective Progress Note Date: 09/03/20 Principal diagnosis: Abdominal pain, acute cholecystitis, non-ST OH, worsening kidney function, type 2 diabetes, COPD, obstructive sleep apnea and hypertension. This is an 85-year-old male patient of Dr. Larkin with past medical history of hypertension, hypertensive cardiovascular disease, hyperlipidemia, gastroesophageal reflux disease, diabetes mellitus type 2, obesity with obstructive sleep apnea and obesity hypoventilation syndrome, generalized osteoarthritis, chronic kidney disease stage IIIb. Patient presented to the hospital due to a fall at home. Patient states that he was in the bathroom and the fire department had to come and help him. He has been experiencing chills, generalized weakness over the past week. Patient also has abdominal pain in the upper area right of midline. No nausea or vomiting. Patient complains of shortness of breath. Patient was found to be afebrile, heart rate initially 125 bpm, blood pressure 112/60, pulse ox 95% on room air. WBC 9.9, hemoglobin 12.5, platelet count 168. INR 1.0. Sodium 136, potassium 4.3, CO2 21, BUN 18 and creatinine 1.48 which appears to be his baseline. Blood sugar 288. Initial lactic acid 2.1. Patient is status post 1 L of IV fluids and 1.5 L additional ordered. Troponin 0.061, 0.163 and 0.254. Urinalysis clear with glucose 4+, ketones 1+. Total bilirubin 2.5, AST 359, ALT 236, alkaline phosphatase 124. Coronavirus PCR not detected. CAT scan of the abdomen and pelvis revealed no evidence of bowel ischemia. Colonic diverticulosis. Amylase seen as of the mid abdomen mesentery with small nodes similar to prior. 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 CTA of the chest revealed no central pulmonary embolism. Enlarged pulmonary arteries reflect pulmonary artery hypertension. Mild basilar atelectasis. Ultrasound gallbladder reveals acute cholecystitis. Patient remains in the emergency center waiting for a bed on the cardiac stepdown unit. Heparin drip added, consult with pulmonary medicine, GI and general surgery. 06/30 and patient examined bedside sitting in the recliner. It appears calm and comfortable. He does have some mild epigastric abdominal pain but denies any nausea or vomiting. He was evaluated by surgery who deemed patient high risk for any open cholecystectomy at this point. Dr. Purcell recommended ultrasound of the abdomen that did show acute cholecystitis. Hepatitis panel negative. Troponin elevated from 0.061 --- 0.163 --- 0.254. Patient evaluated by the cardiology, heparin drip was discontinued. Since patient does not have any chest pain with no ST-T wave changes. Echocardiogram ordered. Conservative medical approach was recommended. That is evaluated today suggest 97.5 pulse 94 blood pressure 129/84. Metoprolol initiated 25 mg twice daily. Continue antibiotics Zosyn. We will discontinue IV fluids today 07/01 patient appears comfortable sitting in the recliner. Does have mild right sided abdominal pain but denies any nausea or vomiting. He did have an episode of diarrhea this morning. Evaluate by surgery for surgical intervention at this point. Dr. Purcell review of the ultrasound of the abdomen and did not see any b ile duct dilation ruled out acute cholecystitis. Elevated liver enzymes likely secondary to fatty liver disease or underlying hepatocellular process. Hepatitis panel is negative. Continue conservative treatment. Continue Protonix. PTOT is consulted for evaluation. CMP pending from today. If liver enzymes continued to trend down and patient's diarrhea resolves. Patient may be ready for discharge tomorrow. Patient's lisinopril, glipizide and metformin, and Lasix were held during hospitalization. Medication needs to be reconsulted prior to discharge with possible discontinuation of lisinopril 09/02: Patient is doing slightly better today he knows when he was is not confused, hemodynamically is more stable. Troponin has not increased since, review his echocardiogram still showing well preserved ejection fraction mild valvular heart disease and mild pulmonary hypertension. Long discussion with the today patient is still on conservative and medical management only no surgical intervention needed to be done probably patient had an infection after having obstructive common duct to his acute cholecystitis no surgery needed at this point specially with his comorbidities extremely high. Patient is very debilitated not been able template and walk agreeable to start on PTOT possible plan for rehab on Friday. 09/03: Patient is doing much better today has less confusion still have significant problem with mobility his almost bedridden at this point require 2 person assistance, will continue physical therapy and occupational therapy and prepare hopefully for subacute rehab tomorrow. Patient had subacute and acute cholecystitis but his very high risk for surgery which at this point I can be done but to what he had most likely had ascending cholangitis had cause more in fection and sepsis created problem. For the elevated troponin the cardiac problem with his echo being good no intervention need to be on at this point. Objective - Vital Signs Vital signs: Vital Signs Temp 98.8 F 09/03/20 08:00 Pulse 82 09/03/20 08:00 Resp 18 09/03/20 08:00 BP 147/78 09/03/20 08:00 Pulse Ox 97 09/03/20 08:00 Intake & Output 09/02/20 09/03/20 09/03/20 18:59 06:59 18:59 Intake Total 1060 475 480 Output Total 802 701 8247 Balance 616 -436 -101 Weight 128.5 kg Intake: Intake, IV Titration 100 Amount Piperacillin-Tazobactam 3 100 .375 gm In Sodium Chloride 0.9% 100 ml @ 25 mls/hr IVPB Q8HR@0200, 1000,1800 [facility] Rx#: [id number] Oral 960 475 480 Output: Urine 754 050 8551 Stool 1 Other: Voiding Method Urinal Urinal Urinal # Voids 1 1 4 - Exam REVIEW OF SYSTEMS Constitutional: No fever, no chills, no night sweats. No weight change. Reports weakness, Reports fatigue. EENT: No headache. No blurred vision or double vision, no loss of vision. Reports loss of Hearing. No nasal drainage or congestion. No epistaxis. No sore throat. Lungs: Reports shortness of breath, cough, no sputum production. No wheezing. Cardiovascular: No chest pain, no lower extremity edema. No palpitations. No paroxysmal nocturnal dyspnea. No orthopnea. No lightheadedness or dizziness. No syncopal episodes. Abdominal: Right upper quadrant abdominal pain. Dry heaving resolved No nausea, vomiting. Positive for diarrhea. No constipation. No bloody or tarry stools.. No loss of appetite. Genitourinary: No dysuria, increased frequency, urgency. No urinary retention. Musculoskeletal: No myalgias. Reports muscle weakness, Reports gait dysfunction, Reports falls. No back pain. No neck pain. Integumentary: No wounds, no lesions. No rash or pruritus. Neurologic: No aphasia. No facial droop. No change in mentation. No head injury. No headache. No paralysis. No paresthesia. Psychiatric: No depression. No anxiety. N Endocrine: No abnormal blood sugars. Physical examinations: General Appearance: Alert, cooperative, no distress, morbidly obese. Neck HEENT: Supple, no lymphadenopathy, no thyroid enlargement, no carotid bruits. Lungs: Decreased breaths bilaterally fine rhonchi no crackles slight decreased breath sounds in the right compared to the left. Chest Wall: Decrease expansion with deep inspiration no tenderness and no deformity was found on exam, no costochondral pain or discomfort. Heart: Regular rate and rhythm, S1, S2 normal, no murmur, rub or gallop. Back: Symmetric, no curvature, ROM normal, no CVA tenderness. Abdomen: Distended with mild discomfort and tenderness in the right upper quadra nt area. 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 Pulses: 2+ and symmetric. Skin: Skin color, texture, tugor normal, no rashes or lesions. Neurologic: Alert oriented x3 cranial nerves II through XII intact, no motor def icit, no abnormal balance or gait. - Labs CBC & Chem 7: 09/03/20 06:38 09/03/20 06:38 Labs: Abnormal Lab Results - Last 24 Hours (Table) 09/02/20 09/02/20 09/02/20 Range/Units 12:13 17:09 20:18 RBC (4.30-5.90) m/uL Hgb (13.0-17.5) gm/dL Hct (39.0-53.0) % Sodium (137-145) mmol/L Creatinine (0.66-1.25) mg/dL Glucose (74-99) mg/dL POC Glucose (mg/dL) 237 H 164 H 138 H (75-99) mg/dL ALT (4-49) U/L Alkaline Phosphatase (38-126) U/L Total Protein (6.3-8.2) g/dL Albumin (3.5-5.0) g/dL 09/03/20 09/03/20 09/03/20 Range/Units 06:21 06:38 06:38 RBC 3.68 L (4.30-5.90) m/uL Hgb 11.5 L (13.0-17.5) gm/dL Hct 35.9 L (39.0-53.0) % Sodium 136 L (137-145) mmol/L Creatinine 1.50 H (0.66-1.25) mg/dL Glucose 149 H (74-99) mg/dL POC Glucose (mg/dL) 142 H (75-99) mg/dL ALT 102 H (4-49) U/L Alkaline Phosphatase 135 H (38-126) U/L Total Protein 6.1 L (6.3-8.2) g/dL Albumin 3.3 L (3.5-5.0) g/dL Microbiology - Last 24 Hours (Table) 08/30/20 10:51 Blood Culture - Preliminary Blood No Growth after 72 hours Assessment and Plan Assessment: 1. SIRS with lactic acidosis and tachycardia with mild mesenteric panniculitis with diverticulosis Patient is status post post fluid resuscitation. Lactic acid is normal. on Zosyn 3.375 g IV piggyback every 8 hours. Continue current management, despite the source most likely hepatocellular in origin probably from the common duct through the acute cholecystitis no surgical intervention is needed this point. We'll convert IV antibiotic to oral antibiotic probably when he goes to subacute rehab for total of 7 more days. 2. Elevated liver enzymes , cholecystitis ruled out. No biliary obstruction on gallbladder ultrasound Likely secondary to hepatocellular process versus fatty liver disease Consult with GI and general surgery. continue Zosyn Patient deemed to be high risk for surgery continue medical management 3. Non-ST OH: off heparin drip, continue aspirin, cardiology rec appreciated. metoprolol 25 m gpo BID . echo revealed EF 50-55% with [id number] tricuspid regurgitation and [id number] pulmonary hypertension Continue Nitrostat. 4. Generalized weakness multifactorial , until new PTOT and need rehab. 5. Hypertension, hypertensive cardiovascular disease. Follow-up blood pressure is on the low side. Hold lisinopril. 6. Hyperlipidemia. Hold statin due to elevated liver function tests. His on statin in 2 weeks. 7. Diabetes mellitus type 2. Hold glipizide and metformin. Patient will be placed on NovoLog scale before meals and at bedtime. 8. Obesity with obstructive sleep apnea and obesity hypoventilation syndrome. Patient may have CPAP brought from home. 9. Gastroesophageal reflux disease and GI prophylaxis. Continue omeprazole or equivalent. 10. Benign prostatic hypertrophy. Continue Flomax 0.4 mg twice daily. 11. Chronic kidney disease stage IIIb. Lisinopril and Lasix on hold. 12. DVT prophylaxis. Heparin drip. 13. Generalized debility PTOT consult Discharge planning: Was start PTOT and plan probably to some patient's subacute rehab on Friday.
[2020-09-03 11:56] LABS: Glucose,Whole Blood 209 mg/dL (75-99)
[2020-09-03 17:00] LABS: Glucose,Whole Blood 127 mg/dL (75-99)
[2020-09-03 20:37] LABS: Glucose,Whole Blood 247 mg/dL (75-99)
[2020-09-03] MEDS: INSULIN DETEMIR (LEVEMIR) 100 UNIT/ML SYR SQ SCH (20:40)
[2020-09-04] MEDS: PIPERACILLIN-TAZOBACTAM 3.375 GM in SODIUM CHLORIDE 0.9% 100 ML IVPB SCH ×3 (03:15→17:40)
[2020-09-04 06:20] LABS: Glucose,Whole Blood 176 mg/dL (75-99)
[2020-09-04] MEDS: PANTOPRAZOLE 40 MG TABLET PO SCH (06:41)
[2020-09-04] MEDS: INSULIN ASPART (NovoLOG) 100 UNIT/ML VIAL SQ SCH ×4 (06:41→20:33)
[2020-09-04 07:29] LABS: HCT 36.7 % (39.0-53.0); HGB 11.8 gm/dL (13.0-17.5); MCH 31.6 pg (25.0-35.0); MCHC 32.2 g/dL (31.0-37.0); MCV 98.2 fL (80.0-100.0); Mean Platelet Volume 7.3; Platelet Count 193 k/uL (150-450); RBC 3.73 m/uL (4.30-5.90); RDW 13.7 % (11.5-15.5); WBC 6.5 k/uL (3.8-10.6)
[2020-09-04 07:40] LABS: Albumin 3.4 g/dL (3.5-5.0); Total Protein 6.2 g/dL (6.3-8.2)
[2020-09-04] MEDS: TAMSULOSIN 0.4 MG CAP.ER.24H PO SCH ×2 (07:52→17:40)
[2020-09-04] MEDS: METOPROLOL TARTRATE 25 MG TAB PO SCH ×2 (07:52→20:33)
[2020-09-04] MEDS: MULTIVITAMINS, THERA 1 EACH TAB PO SCH (07:52)
[2020-09-04] MEDS: ASPIRIN 325 MG TAB PO SCH (07:52)
--- NOTE | 2020-09-04 11:45 | P.DS ---
Providers Date of admission: 08/30/20 03:00 Attending physician: Leonard Larkin Consults: 08/30/20 10:07 Consult Physician Routine Consulting Provider: Rafiq Sanderson Consult Reason/Comments: acute cholecystitis, mesenteric pannicul Do you want consulting provider notified?: Yes Primary care physician: Leonard Larkin [facility] Course: Principal diagnosis: Abdominal pain, acute cholecystitis, non-ST IN, worsening kidney function, type 2 diabetes, COPD, obstructive sleep apnea and hypertension. This is an 85-year-old male patient of Dr. Larkin with past medical history of hypertension, hypertensive cardiovascular disease, hyperlipidemia, gastroesophageal reflux disease, diabetes mellitus type 2, obesity with obstructive sleep apnea and obesity hypoventilation syndrome, generalized osteoarthritis, chronic kidney disease stage IIIb. Patient presented to the hospital due to a fall at home. Patient states that he was in the bathroom and the fire department had to come and help him. He has been experiencing chills, generalized weakness over the past week. Patient also has abdominal pain in the upper area right of midline. No nausea or vomiting. Patient complains of shortness of breath. Patient was found to be afebrile, heart rate initially 125 bpm, blood pressure 112/60, pulse ox 95% on room air. WBC 9.9, hemoglobin 12.5, platelet count 168. INR 1.0. Sodium 136, potassium 4.3, CO2 21, BUN 18 and creatinine 1.48 which appears to be his baseline. Blood sugar 288. Initial lactic acid 2.1. Patient is status post 1 L of IV fluids and 1.5 L additional ordered. Troponin 0.061, 0.163 and 0.254. Urinalysis clear with glucose 4+, ketones 1+. Total bilirubin 2.5, AST 359, ALT 236, alkaline phosphatase 124. Coronavirus PCR not detected. CAT scan of the abdomen and pelvis revealed no evidence of bowel ischemia. Colonic diverticulosis. Amylase seen as of the mid abdomen mesentery with small nodes similar to prior. 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 CTA of the chest revealed no central pulmonary embolism. Enlarged pulmonary arteries reflect pulmonary artery hypertension. Mild basilar atelectasis. Ultrasound gallbladder reveals acute cholecystitis. Patient remains in the emergency center waiting for a bed on the cardiac stepdown unit. Heparin drip added, consult with pulmonary medicine, GI and general surgery. 06/30 and patient examined bedside sitting in the recliner. It appears calm and comfortable. He does have some mild epigastric abdominal pain but denies any nausea or vomiting. He was evaluated by surgery who deemed patient high risk for any open cholecystectomy at this point. Dr. Purcell recommended ultrasound of the abdomen that did show acute cholecystitis. Hepatitis panel negative. Troponin elevated from 0.061 --- 0.163 --- 0.254. Patient evaluated by the cardiology, heparin drip was discontinued. Since patient does not have any chest pain with no ST-T wave changes. Echocardiogram ordered. Conservative medical approach was recommended. That is evaluated today suggest 97.5 pulse 94 blood pressure 129/84. Metoprolol initiated 25 mg twice daily. Continue antibiotics Zosyn. We will discontinue IV fluids today 07/01 patient appears comfortable sitting in the recliner. Does have mild right sided abdominal pain but denies any nausea or vomiting. He did have an episode of diarrhea this morning. Evaluate by surgery for surgical intervention at this point. Dr. Purecll review of the ultrasound of the abdomen and did not see any bile duct dilation ruled out acute cholecystitis. Elevated liver enzymes likely secondary to fatty liver disease or underlying hepatocellular process. Hepatitis panel is negative. Continue conservative treatment. Continue Protonix. PTOT is consulted for evaluation. CMP pending from today. If liver enzymes continued to trend down and patient's diarrhea resolves. Patient may be ready for discharge tomorrow. Patient's lisinopril, glipizide and metformin, and Lasix were held during hospitalization. Medication needs to be reconsulted prior to discharge with possible discontinuation of lisinopril 09/02: Patient is doing slightly better today he knows when he was is not confused, hemodynamically is more stable. Troponin has not increased since, review his echocardiogram still showing well preserved ejection fraction mild valvular heart disease and mild pulmonary hypertension. Long discussion with the today patient is still on conservative and medical management only no surgical intervention needed to be done probably patient had an infection after having obstructive common duct to his acute cholecystitis no surgery needed at this point specially with his comorbidities extremely high. Patient is very debilitated not been able template and walk agreeable to start on PTOT possible plan for rehab on Friday. 09/03: Patient is doing much better today has less confusion still have significant problem with mobility his almost bedridden at this point require 2 person assistance, will continue physical therapy and occupational therapy and prepare hopefully for subacute rehab tomorrow. Patient had subacute and acute cholecystitis but his very high risk for surgery which at this point I can be done but to what he had most likely had ascending cholangitis had cause more infection and sepsis created problem. For the elevated troponin the cardiac problem with his echo being good no intervention need to be on at this point. Objective - Vital Signs Vital signs: Vital Signs Temp 98.8 F 09/03/20 08:00 Pulse 82 09/03/20 08:00 Resp 18 09/03/20 08:00 BP 147/78 09/03/20 08:00 Pulse Ox 97 09/03/20 08:00 Intake & Output 09/02/20 09/03/20 09/03/20 18:59 06:59 18:59 Intake Total 1060 475 480 Output Total 781 058 2010 Balance 480 -530 -361 Weight 128.5 kg Intake: Intake, IV Titration 100 Amount Piperacillin-Tazobactam 3 100 .375 gm In Sodium Chloride 0.9% 100 ml @ 25 mls/hr IVPB Q8HR@0200, 1000,1800 RUD[facility]PH Rx#: [id number] Oral 960 475 480 Output: Urine 650 030 9546 Stool 1 Other: Voiding Method Urinal Urinal Urinal # Voids 1 1 4 - Exam REVIEW OF SYSTEMS Constitutional: No fever, no chills, no night sweats. No weight change. Reports weakness, Reports fatigue. EENT: No headache. No blurred vision or double vision, no loss of vision. Reports loss of Hearing. No nasal drainage or congestion. No epistaxis. No sore throat. Lungs: Reports shortness of breath, cough, no sputum production. No wheezing. Cardiovascular: No chest pain, no lower extremity edema. No palpitations. No paroxysmal nocturnal dyspnea. No orthopnea. No lightheadedness or dizziness. No syncopal episodes. Abdominal: Right upper quadrant abdominal pain. Dry heaving resolved No nausea, vomiting. Positive for diarrhea. No constipation. No bloody or tarry stools.. No loss of appetite. Genitourinary: No dysuria, increased frequency, urgency. No urinary retention. Musculoskeletal: No myalgias. Reports muscle weakness, Reports gait dysfunction, Reports falls. No back pain. No neck pain. Integumentary: No wounds, no lesions. No rash or pruritus. Neurologic: No aphasia. No facial droop. No change in mentation. No head injury. No headache. No paralysis. No paresthesia. Psychiatric: No depression. No anxiety. N Endocrine: No abnormal blood sugars. Physical examinations: General Appearance: Alert, cooperative, no distress, morbidly obese. Neck HEENT: Supple, no lymphadenopathy, no thyroid enlargement, no carotid bruits. Lungs: Decreased breaths bilaterally fine rhonchi no crackles slight decreased breath sounds in the right compared to the left. Chest Wall: Decrease expansion with deep inspiration no tenderness and no deformity was found on exam, no costochondral pain or discomfort. Heart: Regular rate and rhythm, S1, S2 normal, no murmur, rub or gallop. Back: Symmetric, no curvature, ROM normal, no CVA tenderness. Abdomen: Distended with mild discomfort and tenderness in the right upper quadrant area. 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 Pulses: 2+ and symmetric. Skin: Skin color, texture, tugor normal, no rashes or lesions. Neurologic: Alert oriented x3 cranial nerves II through XII intact, no motor deficit, no abnormal balance or gait. - Labs CBC & Chem 7: 09/03/20 06:38 09/03/20 06:38 Labs: Abnormal Lab Results - Last 24 Hours (Table) 09/02/20 09/02/20 09/02/20 Range/Units 12:13 17:09 20:18 RBC (4.30-5.90) m/uL Hgb (13.0-17.5) gm/dL Hct (39.0-53.0) % Sodium (137-145) mmol/L Creatinine (0.66-1.25) mg/dL Glucose (74-99) mg/dL POC Glucose (mg/dL) 237 H 164 H 138 H (75-99) mg/dL ALT (4-49) U/L Alkaline Phosphatase (38-126) U/L Total Protein (6.3-8.2) g/dL Albumin (3.5-5.0) g/dL 09/03/20 09/03/20 09/03/20 Range/Units 06:21 06:38 06:38 RBC 3.68 L (4.30-5.90) m/uL Hgb 11.5 L (13.0-17.5) gm/dL Hct 35.9 L (39.0-53.0) % Sodium 136 L (137-145) mmol/L Creatinine 1.50 H (0.66-1.25) mg/dL Glucose 149 H (74-99) mg/dL POC Glucose (mg/dL) 142 H (75-99) mg/dL ALT 102 H (4-49) U/L Alkaline Phosphatase 135 H (38-126) U/L Total Protein 6.1 L (6.3-8.2) g/dL Albumin 3.3 L (3.5-5.0) g/dL Microbiology - Last 24 Hours (Table) 08/30/20 10:51 Blood Culture - Preliminary Blood No Growth after 72 hours Assessment and Plan Assessment: 1. SIRS with lactic acidosis and tachycardia with mild mesenteric panniculitis with diverticulosis Patient is status post post fluid resuscitation. Lactic acid is normal. on Zosyn 3.375 g IV piggyback every 8 hours. Continue current management, despite the source most likely hepatocellular in origin probably from the common duct through the acute cholecystitis no surgical intervention is needed this point. We'll convert IV antibiotic to oral antibiotic probably when he goes to subacute rehab for total of 7 more days. 2. Elevated liver enzymes , cholecystitis ruled out. No biliary obstruction on gallbladder ultrasound Likely secondary to hepatocellular process versus fatty liver disease Consult with GI and general surgery. continue Zosyn Patient deemed to be high risk for surgery continue medical management 3. Non-ST IN: off heparin drip, continue aspirin, cardiology rec appreciated. metoprolol 25 m gpo BID . echo revealed EF 50-55% with [id number] tricuspid regurgitation and [id number] pulmonary hypertension Continue Nitrostat. 4. Generalized weakness multifactorial , until new PTOT and need rehab. 5. Hypertension, hypertensive cardiovascular disease. Follow-up blood pressure is on the low side. Hold lisinopril. 6. Hyperlipidemia. Hold statin due to elevated liver function tests. His on statin in 2 weeks. 7. Diabetes mellitus type 2. Hold glipizide and metformin. Patient will be placed on NovoLog scale before meals and at bedtime. 8. Obesity with obstructive sleep apnea and obesity hypoventilation syndrome. Patient may have CPAP brought from home. 9. Gastroesophageal reflux disease and GI prophylaxis. Continue omeprazole or equivalent. 10. Benign prostatic hypertrophy. Continue Flomax 0.4 mg twice daily. 11. Chronic kidney disease stage IIIb. Lisinopril and Lasix on hold. 12. DVT prophylaxis. Heparin drip. 13. Generalized debility PTOT consult Discharge planning: Was start PTOT and plan probably to some patient's subacute rehab on Friday. 09/04 2020: Patient is doing slightly better is liver enzyme has improved, patient blood sugar is better so far with switch patient to Levaquin orally for 5 more days to treat panniculitis along with diverticulitis and ascending cholangitis. Long talk with patient and his about the gallbladder and that surgery cannot be done. Also patient had non-ST IN his ejection fraction remain good patient to be continue on medical management only. Patient is doing slightly better with PTOT we will be sending him subacute rehab in [facility] for the next 2 weeks. Patient is stable hemodynamically his exam is good today and stable to be discharged. Patient Condition at Discharge: Stable Plan - Discharge Summary Discharge Rx Participant: No New Discharge Prescriptions: New Aspirin 162 mg PO DAILY tab Levofloxacin [Levaquin] 250 mg PO DAILY 5 Days #5 tab Insulin Detemir (Levemir) [Levemir] 15 unit SQ HS syr Metoprolol Tartrate [Lopressor] 25 mg PO BID #60 tab Nitroglycerin Sl Tabs [Nitrostat] 0.4 mg SUBLINGUAL Q5M PRN tab PRN Reason: Chest Pain INSULIN ASPART (NovoLOG) [NovoLOG (formulary)] 0 unit SQ ACHS vial Continue Tamsulosin [Flomax] 0.4 mg PO PC-BID Simvastatin [Zocor] 40 mg PO HS lisinopriL [Zestril] 2.5 mg PO QAM Multivitamins, Thera [Multivitamin (formulary)] 1 tab PO DAILY glipiZIDE/METFORMIN HCL [glipiZIDE/METFORMIN HCL 2.5-500 mg] 2 tab PO BID Ibuprofen [Motrin Ib] 200 mg PO Q6H PRN PRN Reason: Pain Or Fever > 100.5 Omeprazole 20 mg PO DAILY Furosemide [Lasix] 40 mg PO Q72H PRN PRN Reason: Edema Potassium Chloride ER [K-Dur 10] 20 meq PO Q72H PRN PRN Reason: LASIX Discontinued Insulin Glargine,Hum.rec.anlog [Basaglar Kwikpen U-100] 35 unit SQ HS Discharge Medication List Simvastatin [Zocor] 40 mg PO HS 11/26/16 [History] Tamsulosin [Flomax] 0.4 mg PO PC-BID 11/26/16 [History] lisinopriL [Zestril] 2.5 mg PO QAM 11/26/16 [History] Multivitamins, Thera [Multivitamin (formulary)] 1 tab PO DAILY 08/20/17 [History] Furosemide [Lasix] 40 mg PO Q72H PRN 08/30/20 [History] Ibuprofen [Motrin Ib] 200 mg PO Q6H PRN 08/30/20 [History] Omeprazole 20 mg PO DAILY 08/30/20 [History] Potassium Chloride ER [K-Dur 10] 20 meq PO Q72H PRN 08/30/20 [History] glipiZIDE/METFORMIN HCL [glipiZIDE/METFORMIN HCL 2.5-500 mg] 2 tab PO BID 08/30/20 [History] Aspirin 162 mg PO DAILY tab 09/04/20 [Rx] INSULIN ASPART (NovoLOG) [NovoLOG (formulary)] 0 unit SQ ACHS vial 09/04/20 [Rx] Insulin Detemir (Levemir) [Levemir] 15 unit SQ HS syr 09/04/20 [Rx] Levofloxacin [Levaquin] 250 mg PO DAILY 5 Days #5 tab 09/04/20 [Rx] Metoprolol Tartrate [Lopressor] 25 mg PO BID #60 tab 09/04/20 [Rx] Nitroglycerin Sl Tabs [Nitrostat] 0.4 mg SUBLINGUAL Q5M PRN tab 09/04/20 [Rx] Follow up Appointment(s)/Referral(s): Lasha Perez MD [STAFF PHYSICIAN] - 2 Weeks Leonard Larkin MD [Primary Care Provider] - 1-2 days [facility] Visiting Nurse, [NON-STAFF] - Discharge Disposition: HOME WITH HOME HEALTH SERVICES
[2020-09-04 12:19] LABS: Glucose,Whole Blood 162 mg/dL (75-99)
[2020-09-04 17:17] LABS: Glucose,Whole Blood 278 mg/dL (75-99)
[2020-09-04 19:46] LABS: Glucose,Whole Blood 246 mg/dL (75-99)
[2020-09-04] MEDS: INSULIN DETEMIR (LEVEMIR) 100 UNIT/ML SYR SQ SCH (20:32)
[2020-09-05] MEDS: PIPERACILLIN-TAZOBACTAM 3.375 GM in SODIUM CHLORIDE 0.9% 100 ML IVPB SCH ×2 (02:11→09:09)
[2020-09-05 04:40] VITALS: RESP 18
[2020-09-05 06:00] LABS: Glucose,Whole Blood 132 mg/dL (75-99)
[2020-09-05] MEDS: INSULIN ASPART (NovoLOG) 100 UNIT/ML VIAL SQ SCH ×2 (06:19→12:22)
[2020-09-05] MEDS: PANTOPRAZOLE 40 MG TABLET PO SCH (06:40)
[2020-09-05] MEDS: ASPIRIN 325 MG TAB PO SCH (09:08)
[2020-09-05] MEDS: METOPROLOL TARTRATE 25 MG TAB PO SCH (09:08)
[2020-09-05] MEDS: TAMSULOSIN 0.4 MG CAP.ER.24H PO SCH (09:08)
[2020-09-05] MEDS: MULTIVITAMINS, THERA 1 EACH TAB PO SCH (09:08)
[2020-09-05 11:40] LABS: Glucose,Whole Blood 217 mg/dL (75-99)
[2020-09-05 11:56] VITALS: BP 131/73; PULSE 65; TEMP 98.5
--- NOTE | 2020-09-05 16:37 | P.PN ---
Subjective Progress Note Date: 09/04/20 Abdominal pain, acute cholecystitis, non-ST TN, worsening kidney function, type 2 diabetes, COPD, obstructive sleep apnea and hypertension. This is an 85-year-old male patient of Dr. Larkin with past medical history of hypertension, hypertensive cardiovascular disease, hyperlipidemia, gastroesophageal reflux disease, diabetes mellitus type 2, obesity with obstructive sleep apnea and obesity hypoventilation syndrome, generalized osteoarthritis, chronic kidney disease stage IIIb. Patient presented to the hospital due to a fall at home. Patient states that he was in the bathroom and the fire department had to come and help him. He has been experiencing chills, generalized weakness over the past week. Patient also has abdominal pain in the upper area right of midline. No nausea or vomiting. Patient complains of shortness of breath. Patient was found to be afebrile, heart rate initially 125 bpm, blood pressure 112/60, pulse ox 95% on room air. WBC 9.9, hemoglobin 12.5, platelet count 168. INR 1.0. Sodium 136, potassium 4.3, CO2 21, BUN 18 and creatinine 1.48 which appears to be his baseline. Blood sugar 288. Initial lactic acid 2.1. Patient is status post 1 L of IV fluids and 1.5 L additional ordered. Troponin 0.061, 0.163 and 0.254. Urinalysis clear with glucose 4+, ketones 1+. Total bilirubin 2.5, AST 359, ALT 236, alkaline phosphatase 124. Coronavirus PCR not detected. CAT scan of the abdomen and pelvis revealed no evidence of bowel ischemia. Colonic diverticulosis. Amylase seen as of the mid abdomen mesentery with small nodes similar to prior. 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 CTA of the chest revealed no central pulmonary embolism. Enlarged pulmonary arteries reflect pulmonary artery hypertension. Mild basilar atelectasis. Ultrasound gallbladder reveals acute cholecystitis. Patient remains in the emergency center waiting for a bed on the cardiac stepdown unit. Heparin drip added, consult with pulmonary medicine, GI and general surgery. 06/30 and patient examined bedside sitting in the recliner. It appears calm and comfortable. He does have some mild epigastric abdominal pain but denies any nausea or vomiting. He was evaluated by surgery who deemed patient high risk for any open cholecystectomy at this point. Dr. Purcell recommended ultrasound of the abdomen that did show acute cholecystitis. Hepatitis panel negative. Troponin elevated from 0.061 --- 0.163 --- 0.254. Patient evaluated by the cardiology, heparin drip was discontinued. Since patient does not have any chest pain with no ST-T wave changes. Echocardiogram ordered. Conservative medical approach was recommended. That is evaluated today suggest 97.5 pulse 94 blood pressure 129/84. Metoprolol initiated 25 mg twice daily. Continue antibiotics Zosyn. We will discontinue IV fluids today 07/01 patient appears comfortable sitting in the recliner. Does have mild right sided abdominal pain but denies any nausea or vomiting. He did have an episode of diarrhea this morning. Evaluate by surgery for surgical intervention at this point. Dr. Purcell review of the ultrasound of the abdomen and did not see any bile duct dilation ruled out acute cholecystitis. Elevated liver enzymes likely secondary to fatty liver disease or underlying hepatocellular process. Hepatitis panel is negative. Continue conservative treatment. Continue Protonix. PTOT is consulted for evaluation. CMP pending from today. If liver enzymes continued to trend down and patient's diarrhea resolves. Patient may be ready for discharge tomorrow. Patient's lisinopril, glipizide and metformin, and Lasix were held during hospitalization. Medication needs to be reconsulted prior to discharge with possible discontinuation of lisinopril 09/02: Patient is doing slightly better today he knows when he was is not confused, hemodynamically is more stable. Troponin has not increased since, review his echocardiogram still showing well preserved ejection fraction mild valvular heart disease and mild pulmonary hypertension. Long discussion with the today patient is still on conservative and medical management only no surgical intervention needed to be done probably patient had an infection after having obstructive common duct to his acute cholecystitis no surgery needed at this point specially with his comorbidities extremely high. Patient is very debilitated not been able template and walk agreeable to start on PTOT possible plan for rehab on Friday. 09/03: Patient is doing much better today has less confusion still have significant problem with mobility his almost bedridden at this point require 2 person assistance, will continue physical therapy and occupational therapy and prepare hopefully for subacute rehab tomorrow. Patient had subacute and acute cholecystitis but his very high risk for surgery which at this point I can be done but to what he had most likely had ascending cholangitis had cause more infection and sepsis created problem. For the elevated troponin the cardiac problem with his echo being good no intervention need to be on at this point. 09/04: Patient evaluated by PT/OT who states patient does not meet criteria for rehab. He will most likely have to be discharged home with home care services. He is currently able to tolerate diet without any abdominal pain or vomiting. He denies any chest pain or shortness of breath. Vital signs are stable. Objective - Vital Signs Vital signs: Vital Signs Temp 98.5 F 09/05/20 11:55 Pulse 65 09/05/20 13:14 Resp 18 09/05/20 13:14 BP 131/73 09/05/20 11:55 Pulse Ox 97 09/05/20 11:55 Intake & Output 09/04/20 09/05/20 09/05/20 18:59 06:59 18:59 Intake Total 300 240 480 Output Total 600 201 Balance 300 -360 279 Weight 128.5 kg Intake: Oral 300 240 480 Output: Urine 600 200 Stool 1 Other: Voiding Method Urinal Urinal # Voids 1 1 # Bowel Movements 1 0 0 - Constitutional General appearance: Present: cooperative, no acute distress, obese - EENT Eyes: Present: EOMI, PERRLA, normal appearance ENT: Present: hearing grossly normal, normal oropharynx. Absent: pharyngeal erythema - Neck Neck: Present: normal ROM. Absent: lymphadenopathy, stridor, thyromegaly - Respiratory Respiratory: bilateral: CTA, diminished, negative: dullness, rales, rhonchi, wheezing - Cardiovascular Rhythm: regular Heart sounds: normal: S1, S2 - Gastrointestinal General gastrointestinal: Present: soft. Absent: distended, hepatomegaly, organomegaly, tenderness - Integumentary Integumentary: Present: normal. Absent: cellulitis, pale - Neurologic Neurologic: Present: CNII-XII intact. Absent: focal deficits - Musculoskeletal Musculoskeletal: Present: generalized weakness, strength equal bilaterally - Psychiatric Psychiatric: Present: A&O x's 3, appropriate affect, intact judgment & insight - Labs CBC & Chem 7: 09/04/20 06:44 09/04/20 06:44 Labs: Abnormal Lab Results - Last 24 Hours (Table) 09/04/20 09/04/20 09/05/20 Range/Units 17:15 19:38 05:55 POC Glucose (mg/dL) 278 H 246 H 132 H (75-99) mg/dL 09/05/20 Range/Units 11:36 POC Glucose (mg/dL) 217 H (75-99) mg/dL Microbiology - Last 24 Hours (Table) 08/30/20 10:51 Blood Culture - Final Blood No Growth after 144 hours Assessment and Plan Plan: 1. SIRS with lactic acidosis and tachycardia with mild mesenteric panniculitis with diverticulosis Patient is status post post fluid resuscitation. Lactic acid is normal. on Zosyn 3.375 g IV piggyback every 8 hours. Continue current management, despite the source most likely hepatocellular in origin probably from the common duct through the acute cholecystitis no surgical intervention is needed this point. 2. Elevated liver enzymes , cholecystitis ruled out. No biliary obstruction on gallbladder ultrasound Likely secondary to hepatocellular process versus fatty liver disease Consult with GI and general surgery. continue Zosyn Patient deemed to be high risk for surgery continue medical management 3. Non-ST TN: off heparin drip, continue aspirin, cardiology rec appreciated. metoprolol 25 m gpo BID . echo revealed EF 50-55% with nwst-gk-wycotefm tricuspid regurgitation and zbuz-xw-qcszilvi pulmonary hypertension Continue Nitrostat. 4. Generalized weakness multifactorial , until new PTOT and need rehab. 5. Hypertension, hypertensive cardiovascular disease. Follow-up blood pressure is on the low side. Hold lisinopril. 6. Hyperlipidemia. Hold statin due to elevated liver function tests. His on statin in 2 weeks. 7. Diabetes mellitus type 2. Hold glipizide and metformin. Patient will be placed on NovoLog scale before meals and at bedtime. 8. Obesity with obstructive sleep apnea and obesity hypoventilation syndrome. Patient may have CPAP brought from home. 9. Gastroesophageal reflux disease and GI prophylaxis. Continue omeprazole or equivalent. 10. Benign prostatic hypertrophy. Continue Flomax 0.4 mg twice daily. 11. Chronic kidney disease stage IIIb. Lisinopril and Lasix on hold. 12. DVT prophylaxis. Heparin drip. 13. Generalized debility PTOT consult Discharge planning: Was start PTOT and plan probably to some patient's subacute rehab on Friday. Patient seen and examined by Dr. Larkin, plan, assessment and exam done by Dr. Larkin, Karol Hirsch [facility] acting as a scribe.
--- NOTE | 2020-09-07 07:24 | CDI ---
Documentation Clarification Form Date: 09/07/2020 07:04:22 AM From: Radha Irving CCS, CCDS Admit Date: 08/30/2020 03:00:00 AM Patient Name: Chris Castano Visit Number: [id number] Discharge Date: 09/05/2020 01:47:00 PM ATTENTION: The Clinical Documentation Specialists (CDI) and [facility] Coding Staff appreciate your assistance in clarifying documentation. Please respond to the clarification below the line at the bottom and electronically sign. The CDI & [facility] Coding staff will review the response and follow-up if needed. Please note: Queries are made part of the Legal Health Record. If you have any questions, please contact the author of this message via ITS. Dr. Leonard Larkin: Conflicting documentation has been found in the medical record: The 08/30 History & Physical states: Possible Non-ST elevated myocardial infarction. Patient will be started on heparin drip, continue aspirin, consult with cardiology. Continue Nitrostat. The 08/30 Cardiology Consult states: The abnormal cardiac enzymes is likely related to the sinus tachycardia when the patient presented to the hospital. Severe underlying coronary artery disease to be ruled out probably as an outpatient. 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 Metoprolol started at 25 mg po BID. Echo pending. Continue Nitrostat. The 09/04 Discharge Summary states: Non-ST AK: off Heparin drip, continue Aspirin, cardiology recommendations appreciated. Metoprolol 25 mg po BID. Echo revealed EF 50-55% with vbac-[id number] tricuspid regurgitation and uuls-cu-kswnlcua pulmonary hypertension. Continue Nitrostat. History/Risk Factors per the 08/30 History & Physical patient Medical History: Hypertension, Hyperlipidemia, DM II, Obesity with EMILIANO and Obesity Hypoventilation Syndrome, BMI 40.6; GERD, BPH and CKD IIIb. Clinical Indicators: Presented to the ED on 08/30 via EMS after a fall and generalized weakness, SOB, RLQ abdominal pain. No chest pain. 08/30 VS: T 99.5, P 125, R 18 - 20, BP 112/60, PO 95 RA BMI: 40.6 08/30 LAB: Neut 8.9, Lymph 0.5, APTT 21.4, Na 136, CO2 21, Creatinine 1.48, GFR 42, Glucose 288, Lactic Acid 2.1, Total Bilirubin 2.5, AST 359, ALT 236, Troponin 0.163, 0.254. 08/30 CXR: Low lung volumes. Mild left basilar atelectasis. CT Chest: No PE. Enlarged pulmonary arteries likely reflects pulmonary arterial hypertension. 08/30 EKG: R 119 Sinus tachycardia. 08/31 Repeat EKG: R 92 NSR, T wave abnormality, consider anteriolateral ischemia. Treatment: IV fluid 1,000 mls @ 75 mls/hr q13H, I fluid bolus 1,000 mls @ 999 mls/hr q1H x2, IV fluid 1,000 mls @ 130 mls/hr q7H, IV morphine, IV Zosyn, IV Heparin drip, po Aspirin. Admit to Telemetry Floor. In your opinion, what is the most clinically appropriate diagnosis for this patient? o Myocardial Infarction ruled out xxo Non-STEMI o Myocardial Infarction Type II o Other Type of Myocardial Infarction, Please specify: o Other explanation of clinical findings, Please specify: o Unable to determine (no explanation for clinical findings) (Last Revision: October 2017) MTDD
== END 2020-09-05 13:47 | disposition home health service (06) | DRG 444 ==
LOC: EC 00:15 → 3SCARD 03:00
PROVIDERS: ADMIT Internal Medicine Geriatric Medicine; ATTEND Internal Medicine Geriatric Medicine
DX: K80.00 Calculus of gallbladder with acute cholecystitis without obstruction (principal); I21.4 Non-ST elevation (NSTEMI) myocardial infarction; K65.4 Sclerosing mesenteritis; E87.2 Acidosis; E66.2 Morbid (severe) obesity with alveolar hypoventilation; J98.11 Atelectasis; R65.10 Systemic inflammatory response syndrome (SIRS) of non-infectious origin without acute organ dysfunction; Z20.822 Contact with and (suspected) exposure to COVID-19; E11.22 Type 2 diabetes mellitus with diabetic chronic kidney disease; N18.32 Chronic kidney disease, stage 3b; I27.21 Secondary pulmonary arterial hypertension; Z79.4 Long term (current) use of insulin; E86.0 Dehydration; R77.8 Other specified abnormalities of plasma proteins; W18.30XA Fall on same level, unspecified, initial encounter; Y92.012 Bathroom of single-family (private) house as the place of occurrence of the external cause; I13.10 Hypertensive heart and chronic kidney disease without heart failure, with stage 1 through stage 4 chronic kidney disease, or unspecified chronic kidney disease; R53.81 Other malaise; E78.5 Hyperlipidemia, unspecified; M79.3 Panniculitis, unspecified; K57.30 Diverticulosis of large intestine without perforation or abscess without bleeding; K21.9 Gastro-esophageal reflux disease without esophagitis; N40.0 Benign prostatic hyperplasia without lower urinary tract symptoms; H91.90 Unspecified hearing loss, unspecified ear; G47.33 Obstructive sleep apnea (adult) (pediatric); J44.9 Chronic obstructive pulmonary disease, unspecified; K59.00 Constipation, unspecified; I83.90 Asymptomatic varicose veins of unspecified lower extremity; M15.9 Polyosteoarthritis, unspecified; F32.9 Major depressive disorder, single episode, unspecified; Z96.653 Presence of artificial knee joint, bilateral; Z98.890 Other specified postprocedural states; Z98.42 Cataract extraction status, left eye; Z98.41 Cataract extraction status, right eye; Z96.1 Presence of intraocular lens; Z79.899 Other long term (current) drug therapy; Z79.01 Long term (current) use of anticoagulants; Z87.11 Personal history of peptic ulcer disease; Z83.3 Family history of diabetes mellitus; Z82.49 Family history of ischemic heart disease and other diseases of the circulatory system; Z82.0 Family history of epilepsy and other diseases of the nervous system; Z80.3 Family history of malignant neoplasm of breast
CPT/HCPCS: 36415; 71045; 71275; 73502; 74177; 76705; 80053; 80061; 80074; 81001; 83605; 83735; 84484; 85025; 85027; 85610; 85730; 87040; 87635; 93005; 93306; 96361; 96365; 96366; 96367; 96375; 99285

== ENCOUNTER 2020-09-17 21:03 | Emergency (ER) | payer MEDICARE ==
[2020-09-17 21:15] VITALS: TEMP 97.6
[2020-09-17] MEDS ORDERED: MORPHINE SULFATE 4 MG/ML SYRINGE IV STA (21:20)
[2020-09-17] MEDS ORDERED: ONDANSETRON 4 MG/2 ML VIAL IVP STA (21:20)
[2020-09-17] MEDS ORDERED: SODIUM CHLORIDE 0.9% 1,000 ML IV STA ×2 (21:20→22:28)
[2020-09-17] MEDS ORDERED: LEVOFLOXACIN 750MG-D5W PMX 750 MG in DEXTROSE/WATER 1 150ML.BAG IVPB STA (21:48)
--- NOTE | 2020-09-17 21:53 | ED ---
Abdominal Pain HPI - General Source: patient, family, RN notes reviewed Mode of arrival: wheelchair Limitations: no limitations <Nghia Bermeo - Last Filed: 09/17/20 23:19> <Moses Elder - Last Filed: 09/18/20 00:24> - General Chief Complaint: Abdominal Pain Stated Complaint: Abd Pain, Vomiting Time Seen by Provider: 09/17/20 21:19 - History of Present Illness Initial Comments: Patient is an 85-year-old male that presents to emergency department with right upper quadrant pain. notes that he was diagnosed with gallstones previously and has had several flareups and issues in the past. She notes that this episode seems to be a little bit worse in longer-lasting. Patient was in mild distress and pain while laying in bed during the examination interview. noted that patient did become nauseous and vomits several times earlier today. She noted the vomit was nonbloody nonbilious. She denied any diarrhea or constipation type symptoms. Patient states that his right side was in pretty good pain and wants some pain medication. He denied any chest pain shortness of breath headache diarrhea constipation fever fatigue chills (Nghia Bermeo) - Related Data Home Medications Medication Instructions Recorded Confirmed Simvastatin [Zocor] 40 mg PO HS 11/26/16 08/30/20 Tamsulosin [Flomax] 0.4 mg PO PC-BID 11/26/16 08/30/20 lisinopriL [Zestril] 2.5 mg PO QAM 11/26/16 08/30/20 Multivitamins, Thera [Multivitamin 1 tab PO DAILY 08/20/17 08/30/20 (formulary)] Furosemide [Lasix] 40 mg PO Q72H PRN 08/30/20 08/30/20 Ibuprofen [Motrin Ib] 200 mg PO Q6H PRN 08/30/20 08/30/20 Omeprazole 20 mg PO DAILY 08/30/20 08/30/20 Potassium Chloride ER [K-Dur 10] 20 meq PO Q72H PRN 08/30/20 08/30/20 glipiZIDE/METFORMIN HCL 2 tab PO BID 08/30/20 08/30/20 [glipiZIDE/METFORMIN HCL 2.5-500 mg] Previous Rx's Medication Instructions Recorded Aspirin 162 mg PO DAILY tab 09/04/20 INSULIN ASPART (NovoLOG) [NovoLOG 0 unit SQ ACHS vial 09/04/20 (formulary)] Insulin Detemir (Levemir) [Levemir] 15 unit SQ HS syr 09/04/20 Levofloxacin [Levaquin] 250 mg PO DAILY 5 Days #5 tab 09/04/20 Metoprolol Tartrate [Lopressor] 25 mg PO BID #60 tab 09/04/20 Nitroglycerin Sl Tabs [Nitrostat] 0.4 mg SUBLINGUAL Q5M PRN tab 09/04/20 Allergies Allergy/AdvReac Type Severity Reaction Status Date / Time No Known Allergies Allergy Verified 08/30/20 07:07 Review of Systems ROS Other: All systems not noted in ROS Statement are negative. <Nghia Bermeo - Last Filed: 09/17/20 23:19> ROS Other: All systems not noted in ROS Statement are negative. <Moses Elder - Last Filed: 09/18/20 00:24> ROS Statement: Those systems with pertinent positive or pertinent negative responses have been documented in the HPI. Past Medical History Past Medical History: Diabetes Mellitus, GERD/Reflux, Hyperlipidemia, Hypertension, Osteoarthritis (OA), Prostate Disorder, Sleep Apnea/CPAP/BIPAP Additional Past Medical History / Comment(s): diverticulosis, hemmorhoids, co nstopation, varicose veins, ulcers History of Any Multi-Drug Resistant Organisms: None Reported Past Surgical History: Hernia Repair, Joint Replacement, Orthopedic Surgery Additional Past Surgical History / Comment(s): rt knee arthroscopy, tressa total knee replacments, egd/colonoscopy, tressa cataracts-lens implants, rt ing hernia, umb hernia,ventral hernia, exp lap -repair of perforated ulcer Past Anesthesia/Blood Transfusion Reactions: No Reported Reaction Past Psychological History: Depression Past Alcohol Use History: Rare Past Drug Use History: None Reported - Past Family History Mother Family Medical History: Diabetes Mellitus Additional Family Medical History / Comment(s): Mother at age 83 from complications from diabetes. Father Family Medical History: Coronary Artery Disease (CAD) Additional Family Medical History / Comment(s): Father at age 93 and only history was pacemaker implantation at age 93. Brother(s) History Unknown: Yes Additional Family Medical History / Comment(s): Patient was 1 brother that at age 77 with history of Alzheimer's disease and Parkinson's. Sister(s) Family Medical History: Cancer Additional Family Medical History / Comment(s): 2 SISTERS HAD BREAST CANCER Son(s) Additional Family Medical History / Comment(s): Patient has 2 sons and 5 daughters. One daughter from breast cancer at age 27. Other children have no major medical problems. Daughter(s) Family Medical History: Cancer Additional Family Medical History / Comment(s): BREAST CANCER AT 27, SURVIVED FOR 5 YEARS. <Nghia Bermeo - Last Filed: 09/17/20 23:19> General Exam Limitations: no limitations General appearance: alert, in no apparent distress, obese Head exam: Present: atraumatic, normocephalic, normal inspection Eye exam: Present: normal appearance, PERRL, EOMI. Absent: scleral icterus, conjunctival injection, periorbital swelling ENT exam: Present: normal exam, mucous membranes moist Neck exam: Present: normal inspection. Absent: tenderness, meningismus, lymphadenopathy Respiratory exam: Present: normal lung sounds bilaterally. Absent: respiratory distress, wheezes, rales, rhonchi, stridor Cardiovascular Exam: Present: regular rate, normal rhythm, normal heart sounds. Absent: systolic murmur, diastolic murmur, rubs, gallop, clicks GI/Abdominal exam: Present: soft, tenderness (Right upper quadrant pain to light palpation.), normal bowel sounds. Absent: distended, guarding, rebound, rigid Extremities exam: Present: normal inspection, full ROM, normal capillary refill. Absent: tenderness, pedal edema, joint swelling, calf tenderness Neurological exam: Present: alert, oriented X3, CN II-XII intact Psychiatric exam: Present: normal affect, normal mood Skin exam: Present: warm, dry, intact, normal color. Absent: rash <Nghia Bermeo - Last Filed: 09/17/20 23:19> Course <Moses Elder - Last Filed: 09/18/20 00:24> Vital Signs 09/17/20 09/17/20 21:06 23:40 Temperature 97.6 F Pulse Rate 83 99 Respiratory 18 19 Rate Blood Pressure 183/97 136/90 O2 Sat by Pulse 97 96 Oximetry - Reevaluation(s) Reevaluation #1: 09/18/20 00:18 Medical record is reviewed (Moses Elder) Reevaluation #2: 09/18/20 00:18 Patient informed of results questions answered (Moses Elder) Reevaluation #3: 09/18/20 00:18 Patient feels better and okay for discharge (Moses Elder) Medical Decision Making - Lab Data Result diagrams: 09/17/20 21:49 09/17/20 21:49 <Nghia Bermeo - Last Filed: 09/17/20 23:19> - Lab Data Result diagrams: 09/17/20 21:49 09/17/20 21:49 - Radiology Data Radiology results: report reviewed (CT abdomen and pelvis is negative for acute disease), image reviewed <Moses Elder - Last Filed: 09/18/20 00:24> - Medical Decision Making 85 she'll male complaining of right upper quadrant pain. Labs, 1 L normal saline, 4 mg of morphine, 4 mg of Zofran, CT of abdomen and pelvis ordered. Case discussed with Dr. haro. Case handed off to Alyssa TOBAR (Nghia Bermeo) 85 male to the ER for evaluation patient presents today for evaluation of right upper quadrant pain related to biliary colic. Patient symptoms are improved here in the urine can be discharged home (Moses Elder) - Lab Data Lab Results 09/17/20 09/17/20 09/17/20 Range/Units 21:49 21:49 22:45 WBC 9.2 (3.8-10.6) k/uL RBC 4.16 L (4.30-5.90) m/uL Hgb 13.3 (13.0-17.5) gm/dL Hct 40.2 (39.0-53.0) % MCV 96.6 (80.0-100.0) fL MCH 31.9 (25.0-35.0) pg MCHC 33.0 (31.0-37.0) g/dL RDW 13.2 (11.5-15.5) % Plt Count 216 (150-450) k/uL MPV 7.4 Neutrophils % 58 % Lymphocytes % 32 % Monocytes % 4 % Eosinophils % 2 % Basophils % 1 % Neutrophils # 5.3 (1.3-7.7) k/uL Lymphocytes # 3.0 (1.0-4.8) k/uL Monocytes # 0.4 (0-1.0) k/uL Eosinophils # 0.2 (0-0.7) k/uL Basophils # 0.1 (0-0.2) k/uL Sodium 138 (137-145) mmol/L Potassium 5.2 H (3.5-5.1) mmol/L Chloride 101 (98-107) mmol/L Carbon Dioxide 26 (22-30) mmol/L Anion Gap 11 mmol/L BUN 26 H (9-20) mg/dL Creatinine 1.50 H (0.66-1.25) mg/dL Est GFR (CKD-EPI)AfAm 48 (>60 ml/min/1.73 sqM) Est GFR (CKD-EPI)NonAf 42 (>60 ml/min/1.73 sqM) Glucose 180 H (74-99) mg/dL Calcium 9.4 (8.4-10.2) mg/dL Total Bilirubin 0.5 (0.2-1.3) mg/dL AST 25 (17-59) U/L ALT 26 (4-49) U/L Alkaline Phosphatase 93 (38-126) U/L Total Protein 6.9 (6.3-8.2) g/dL Albumin 4.1 (3.5-5.0) g/dL Amylase 50 (30-110) U/L Lipase 36 (23-300) U/L Urine Color Yellow Urine Appearance Clear (Clear) Urine pH 5.5 (5.0-8.0) Ur Specific [place] 1.018 (1.001-1.035) Urine Protein Negative (Negative) Urine Glucose (UA) Negative (Negative) Urine Ketones 1+ H (Negative) Urine Blood Negative (Negative) Urine Nitrite Negative (Negative) Urine Bilirubin Negative (Negative) Urine Urobilinogen <2.0 (<2.0) mg/dL Ur Leukocyte Esterase Negative (Negative) Disposition <Nghia Bermeo - Last Filed: 09/17/20 23:19> Is patient prescribed a controlled substance at d/c from ED?: No <Moses Elder - Last Filed: 09/18/20 00:24> Clinical Impression: Biliary colic, Abdominal pain Disposition: HOME SELF-CARE Condition: Good Instructions (If sedation given, give patient instructions): Biliary Colic (ED) Referrals: Leonard Larkin MD [Primary Care Provider] - 1-2 days
[2020-09-17 22:06] LABS: Basophils # (A) 0.1 k/uL (0-0.2); Basophils % (A) 1 %; Eosinophils # (A) 0.2 k/uL (0-0.7); Eosinophils % (A) 2 %; HCT 40.2 % (39.0-53.0); HGB 13.3 gm/dL (13.0-17.5); Lymphocytes % (A) 32 %; MCH 31.9 pg (25.0-35.0); MCV 96.6 fL (80.0-100.0); Mean Platelet Volume 7.4; Monocytes # (A) 0.4 k/uL (0-1.0); Monocytes % (A) 4 %; Neutrophils # (A) 5.3 k/uL (1.3-7.7); Neutrophils % (A) 58 %; Platelet Count 216 k/uL (150-450); RBC 4.16 m/uL (4.30-5.90); RDW 13.2 % (11.5-15.5); WBC 9.2 k/uL (3.8-10.6)
[2020-09-17 22:23] LABS: Albumin 4.1 g/dL (3.5-5.0); Calcium 9.4 mg/dL (8.4-10.2); Potassium 5.2 mmol/L (3.5-5.1); Total Bilirubin 0.5 mg/dL (0.2-1.3); Total Protein 6.9 g/dL (6.3-8.2)
--- NOTE | 2020-09-17 23:22 | CT ---
EXAMINATION TYPE: CT abdomen pelvis w con DATE OF EXAM: 09/17/2020 COMPARISON: 08/30/2020 HISTORY: pain CT DLP: 3176.40 mGycm Automated exposure control for dose reduction was used. CONTRAST: Performed with IV Contrast, patient injected with 80 mL of Isovue 300. Images obtained from the diaphragm to the floor the pelvis with IV contrast. FINDINGS: Heart is enlarged. There is some patchy atelectasis at the lung bases. Liver and gallbladder appear intact. The bile ducts are not dilated. Spleen is intact. There is no pa ncreatic mass. Stomach is intact. There is no adrenal mass. Kidneys show satisfactory contrast opacification. There is no hydronephrosi s. Delayed images show normal renal excretion. There is no retroperitoneal adenopathy. Bladder disten ds smoothly. There is no inguinal hernia. There is no free fluid in the pelvis. There are numerous sigmoid diverticula. Appendix is medial and appears normal. There is no mesenteric edema. There is no ascites or free air. There is no bowel obstruction. There is a minimal L4-5 spondylolisthesis. There is no lumbar compression fracture. The posterior florinda ments are intact. Bony pelvis is intact. Hip joints are intact. There is multilevel lumbar vacuum dis c phenomenon. IMPRESSION: Moderate sigmoid diverticulosis without diverticulitis. Normal appendix. There is some patchy atelect asis at the lung bases unchanged.
[2020-09-17] MEDS ORDERED: MORPHINE SULFATE 4 MG/ML SYRINGE IVP STA (23:29)
[2020-09-17] MEDS ORDERED: KETOROLAC 15 MG/ML 1 ML VIAL IVP STA (23:29)
[2020-09-17 23:41] VITALS: BP 136/90; PULSE 99; RESP 19
[2020-09-17 23:56] LABS: Appearance,Urine Clear (Clear); Bilirubin,Urine Negative (Negative); Blood,Urine Negative (Negative); Color,Urine Yellow; Glucose,Urine (UA) Negative (Negative); Ketones,Urine 1+ (Negative); Leukocyte Esterase,Urine Negative (Negative); Nitrite,Urine Negative (Negative); PH, Urine 5.5 (5.0-8.0); Protein,Urine Negative (Negative); Specific Gravity,Urine 1.018 (1.001-1.035); Urobilinogen,Urine <2.0 mg/dL (<2.0)
== END 2020-09-18 01:15 | disposition home or self-care (01) ==
LOC: EC 21:03
DX: K80.50 Calculus of bile duct without cholangitis or cholecystitis without obstruction (principal); E11.36 Type 2 diabetes mellitus with diabetic cataract; E78.5 Hyperlipidemia, unspecified; I10 Essential (primary) hypertension; F32.9 Major depressive disorder, single episode, unspecified; K21.9 Gastro-esophageal reflux disease without esophagitis; M19.90 Unspecified osteoarthritis, unspecified site; Z79.1 Long term (current) use of non-steroidal anti-inflammatories (NSAID); Z79.4 Long term (current) use of insulin; Z79.82 Long term (current) use of aspirin; Z79.899 Other long term (current) drug therapy
CPT/HCPCS: 36415; 80053; 82150; 83690; 85025; 81003; 74177; 99284; 96365; 96366; 96375; 96376; J2270; J2405; J1885; Q9967

== ENCOUNTER 2021-03-04 18:50 | Inpatient (IN) | payer MEDICARE ==
[2021-03-04] MEDS ORDERED: HYDROmorphone 0.5 MG/0.5 ML SYRINGE IVP STA (20:03)
[2021-03-04] MEDS ORDERED: ONDANSETRON 4 MG/2 ML VIAL IVP STA (20:03)
[2021-03-04] MEDS ORDERED: SODIUM CHLORIDE 0.9% 500 ML 500 ML IV STA ×2 (20:03→23:33)
[2021-03-04 21:15] LABS: Basophils # (A) 0.1 k/uL (0-0.2); Basophils % (A) 0 %; Eosinophils % (A) 0 %; HCT 40.9 % (39.0-53.0); HGB 13.6 gm/dL (13.0-17.5); Lymphocytes # (A) 1.5 k/uL (1.0-4.8); Lymphocytes % (A) 11 %; MCH 32.9 pg (25.0-35.0); MCHC 33.3 g/dL (31.0-37.0); MCV 98.9 fL (80.0-100.0); Mean Platelet Volume 7.4; Monocytes # (A) 0.3 k/uL (0-1.0); Monocytes % (A) 2 %; Neutrophils # (A) 11.7 k/uL (1.3-7.7); Neutrophils % (A) 85 %; Platelet Count 252 k/uL (150-450); RBC 4.13 m/uL (4.30-5.90); RDW 13.5 % (11.5-15.5); WBC 13.7 k/uL (3.8-10.6)
[2021-03-04 21:23] LABS: Prothrombin Time 10.5 sec (9.0-12.0)
[2021-03-04 21:24] LABS: Partial Thromboplastin Time 25.5 sec (22.0-30.0)
[2021-03-04 22:12] LABS: Albumin 4.3 g/dL (3.5-5.0); Calcium 9.5 mg/dL (8.4-10.2); Total Bilirubin 0.5 mg/dL (0.2-1.3); Total Protein 7.2 g/dL (6.3-8.2)
[2021-03-04 22:50] LABS: Potassium 6.2 mmol/L (3.5-5.1)
[2021-03-04] MEDS ORDERED: INSULIN REGULAR 100 UNIT/ML VIAL (IV) IV ONE (23:02)
[2021-03-04] MEDS ORDERED: ALBUTEROL NEB (CONC) 2.5 MG/0.5 ML INHALATION ONE (23:02)
[2021-03-04] MEDS ORDERED: SODIUM BICARB 8.4% 50 ML SYR (1 MEQ/ML) IV ONE (23:02)
[2021-03-04] MEDS ORDERED: DEXTROSE 50% SYRINGE 50 ML IVP ONE (23:02)
--- NOTE | 2021-03-04 23:13 | ED ---
General Adult HPI - General Chief complaint: Abdominal Pain Stated complaint: abd pain Time Seen by Provider: 03/04/21 19:32 Source: patient, RN notes reviewed Mode of arrival: ambulatory - History of Present Illness Initial comments: 85-year-old male with a past medical history of diabetes mellitus, diverticulosis, hyperlipidemia, hypertension, GERD presents to the emergency r o for a chief complaint of abdominal pain. Patient has had abdominal pain since earlier this morning. It is in his right mid abdomen. He states his bowel movements have been normal. He has not had any fevers or chills. He did have some nausea and dry heaving at home but no vomiting.Patient has no other complaints at this time including shortness of breath, chest pain, nausea or vomiting, headache, or visual changes. - Related Data Home Medications Medication Instructions Recorded Confirmed Simvastatin [Zocor] 40 mg PO HS 11/26/16 03/04/21 Tamsulosin [Flomax] 0.4 mg PO PC-BID 11/26/16 03/04/21 lisinopriL [Zestril] 2.5 mg PO DAILY 11/26/16 03/04/21 Omeprazole 20 mg PO DAILY 08/30/20 03/04/21 glipiZIDE/METFORMIN HCL 2 tab PO BID 08/30/20 03/04/21 [glipiZIDE/METFORMIN HCL 2.5-500 mg] Insulin Glargine,Hum.rec.anlog 25 unit SQ DAILY 03/04/21 03/04/21 [Basaglar Kwikpen U-100] Previous Rx's Medication Instructions Recorded Metoprolol Tartrate [Lopressor] 25 mg PO BID #60 tab 09/04/20 Nitroglycerin Sl Tabs [Nitrostat] 0.4 mg SUBLINGUAL Q5M PRN tab 09/04/20 Allergies Allergy/AdvReac Type Severity Reaction Status Date / Time No Known Allergies Allergy Verified 03/04/21 20:39 Review of Systems ROS Statement: Those systems with pertinent positive or pertinent negative responses have been documented in the HPI. ROS Other: All systems not noted in ROS Statement are negative. Past Medical History Past Medical History: Diabetes Mellitus, GERD/Reflux, Hyperlipidemia, Hypertension, Osteoarthritis (OA), Prostate Disorder, Sleep Apnea/CPAP/BIPAP Additional Past Medical History / Comment(s): diverticulosis, hemmorhoids, constopation, varicose veins, ulcers History of Any Multi-Drug Resistant Organisms: None Reported Past Surgical History: Hernia Repair, Joint Replacement, Orthopedic Surgery Additional Past Surgical History / Comment(s): rt knee arthroscopy, tressa total knee replacments, egd/colonoscopy, tressa cataracts-lens implants, rt ing hernia, umb hernia,ventral hernia, exp lap -repair of perforated ulcer Past Anesthesia/Blood Transfusion Reactions: No Reported Reaction Past Psychological History: Depression Smoking Status: Never smoker Past Alcohol Use History: Rare Past Drug Use History: None Reported - Past Family History Mother Family Medical History: Diabetes Mellitus Additional Family Medical History / Comment(s): Mother at age 83 from complications from diabetes. Father Family Medical History: Coronary Artery Disease (CAD) Additional Family Medical History / Comment(s): Father at age 93 and only history was pacemaker implantation at age 93. Brother(s) History Unknown: Yes Additional Family Medical History / Comment(s): Patient was 1 brother that at age 77 with history of Alzheimer's disease and Parkinson's. Sister(s) Family Medical History: Cancer Additional Family Medical History / Comment(s): 2 SISTERS HAD BREAST CANCER Son(s) Additional Family Medical History / Comment(s): Patient has 2 sons and 5 daughters. One daughter from breast cancer at age 27. Other children have no major medical problems. Daughter(s) Family Medical History: Cancer Additional Family Medical History / Comment(s): BREAST CANCER AT 27, SURVIVED FOR 5 YEARS. General Exam General appearance: alert Head exam: Present: atraumatic Eye exam: Present: normal appearance, PERRL, EOMI. Absent: scleral icterus ENT exam: Present: normal exam, mucous membranes moist Neck exam: Present: normal inspection, full ROM. Absent: tenderness Respiratory exam: Present: normal lung sounds bilaterally. Absent: respiratory distress, wheezes Cardiovascular Exam: Present: regular rate, normal rhythm, normal heart sounds GI/Abdominal exam: Present: soft, tenderness (Mid right-sided abdominal tenderness), normal bowel sounds. Absent: distended Neurological exam: Present: alert Course Vital Signs 03/04/21 03/04/21 19:20 22:22 Temperature 98.8 F 97.7 F Pulse Rate 86 95 Respiratory 18 18 Rate Blood Pressure 169/84 149/79 O2 Sat by Pulse 98 100 Oximetry EKG Findings - EKG Comments: EKG Findings:: Sinus rhythm, ventricular rate 97, NE interval 212, QTC 449 Medical Decision Making - Medical Decision Making Vitals are stable. Patient is well-appearing. Patient is presenting for abdominal pain. He has had this pain before. I did review previous visit. At one point it was thought he had a mesenteric panniculitis. Today laboratory evaluation was initiated. CBC did show mild cytosis. CMP revealed a potassium of 6.2, not believed to be hemolyzed by lab. He was given sodium bicarb, insulin and dextrose, and albuterol. EKG did not show changes of hyperkalemia. CT abdomen and pelvis was obtained which showed sigmoid diverticulosis without diverticulitis. There is a 5 x 2 cm fat containing umbilical hernia as well. Patient was given pain medication and is still continuing to have significant abdominal pain. At this time patient will be admitted for hyperkalemia and surgery consultation. - Lab Data Result diagrams: 03/04/21 20:52 03/04/21 20:52 Lab Results 03/04/21 03/04/21 03/04/21 Range/Units 20:52 20:52 20:52 WBC 13.7 H (3.8-10.6) k/uL RBC 4.13 L (4.30-5.90) m/uL Hgb 13.6 (13.0-17.5) gm/dL Hct 40.9 (39.0-53.0) % MCV 98.9 (80.0-100.0) fL MCH 32.9 (25.0-35.0) pg MCHC 33.3 (31.0-37.0) g/dL RDW 13.5 (11.5-15.5) % Plt Count 252 (150-450) k/uL MPV 7.4 Neutrophils % 85 % Lymphocytes % 11 % Monocytes % 2 % Eosinophils % 0 % Basophils % 0 % Neutrophils # 11.7 H (1.3-7.7) k/uL Lymphocytes # 1.5 (1.0-4.8) k/uL Monocytes # 0.3 (0-1.0) k/uL Eosinophils # 0.0 (0-0.7) k/uL Basophils # 0.1 (0-0.2) k/uL PT 10.5 (9.0-12.0) sec INR 1.0 (<1.2) APTT 25.5 (22.0-30.0) sec Sodium (137-145) mmol/L Potassium (3.5-5.1) mmol/L Chloride (98-107) mmol/L Carbon Dioxide (22-30) mmol/L Anion Gap mmol/L BUN (9-20) mg/dL Creatinine (0.66-1.25) mg/dL Est GFR (CKD-EPI)AfAm (>60 ml/min/1.73 sqM) Est GFR (CKD-EPI)NonAf (>60 ml/min/1.73 sqM) Glucose (74-99) mg/dL Plasma Lactic Acid Romeo (0.7-2.0) mmol/L Calcium (8.4-10.2) mg/dL Total Bilirubin (0.2-1.3) mg/dL AST (17-59) U/L ALT (4-49) U/L Alkaline Phosphatase (38-126) U/L Total Protein (6.3-8.2) g/dL Albumin (3.5-5.0) g/dL Amylase (30-110) U/L Lipase (23-300) U/L Urine Color Light Yellow Urine Appearance Clear (Clear) Urine pH 6.5 (5.0-8.0) Ur Specific [place] 1.013 (1.001-1.035) Urine Protein Trace H (Negative) Urine Glucose (UA) 3+ H (Negative) Urine Ketones 1+ H (Negative) Urine Blood Negative (Negative) Urine Nitrite Negative (Negative) Urine Bilirubin Negative (Negative) Urine Urobilinogen <2.0 (<2.0) mg/dL Ur Leukocyte Esterase Trace H (Negative) Urine RBC 1 (0-5) /hpf Urine WBC 5 (0-5) /hpf Ur Squamous Epith Cells <1 (0-4) /hpf Urine Bacteria Rare H (None) /hpf Hyaline Casts 1 (0-2) /lpf Urine Mucus Rare H (None) /hpf 03/04/21 03/04/21 Range/Units 20:52 20:52 WBC (3.8-10.6) k/uL RBC (4.30-5.90) m/uL Hgb (13.0-17.5) gm/dL Hct (39.0-53.0) % MCV (80.0-100.0) fL MCH (25.0-35.0) pg MCHC (31.0-37.0) g/dL RDW (11.5-15.5) % Plt Count (150-450) k/uL MPV Neutrophils % % Lymphocytes % % Monocytes % % Eosinophils % % Basophils % % Neutrophils # (1.3-7.7) k/uL Lymphocytes # (1.0-4.8) k/uL Monocytes # (0-1.0) k/uL Eosinophils # (0-0.7) k/uL Basophils # (0-0.2) k/uL PT (9.0-12.0) sec INR (<1.2) APTT (22.0-30.0) sec Sodium 135 L (137-145) mmol/L Potassium 6.2 H* (3.5-5.1) mmol/L Chloride 101 (98-107) mmol/L Carbon Dioxide 20 L (22-30) mmol/L Anion Gap 14 mmol/L BUN 22 H (9-20) mg/dL Creatinine 1.34 H (0.66-1.25) mg/dL Est GFR (CKD-EPI)AfAm 55 (>60 ml/min/1.73 sqM) Est GFR (CKD-EPI)NonAf 48 (>60 ml/min/1.73 sqM) Glucose 213 H (74-99) mg/dL Plasma Lactic Acid Romeo 3.1 H* (0.7-2.0) mmol/L Calcium 9.5 (8.4-10.2) mg/dL Total Bilirubin 0.5 (0.2-1.3) mg/dL AST 28 (17-59) U/L ALT 23 (4-49) U/L Alkaline Phosphatase 97 (38-126) U/L Total Protein 7.2 (6.3-8.2) g/dL Albumin 4.3 (3.5-5.0) g/dL Amylase 41 (30-110) U/L Lipase 23 (23-300) U/L Urine Color Urine Appearance (Clear) Urine pH (5.0-8.0) Ur Specific [place] (1.001-1.035) Urine Protein (Negative) Urine Glucose (UA) (Negative) Urine Ketones (Negative) Urine Blood (Negative) Urine Nitrite (Negative) Urine Bilirubin (Negative) Urine Urobilinogen (<2.0) mg/dL Ur Leukocyte Esterase (Negative) Urine RBC (0-5) /hpf Urine WBC (0-5) /hpf Ur Squamous Epith Cells (0-4) /hpf Urine Bacteria (None) /hpf Hyaline Casts (0-2) /lpf Urine Mucus (None) /hpf Disposition Clinical Impression: Abdominal pain, Lactic acidosis, Leukocytosis, Hyperkalemia Disposition: ADMITTED IP TO THIS HOSP Is patient prescribed a controlled substance at d/c from ED?: No Referrals: Leonard Larkin MD [Primary Care Provider] - 1-2 days Time of Disposition: 00:33
[2021-03-04 23:25] LABS: Appearance,Urine Clear (Clear); Bacteria,Urine Rare /hpf; Bilirubin,Urine Negative (Negative); Blood,Urine Negative (Negative); Color,Urine Light Yellow; Glucose,Urine (UA) 3+ (Negative); Hyaline Casts,Urine 1 /lpf (0-2); Ketones,Urine 1+ (Negative); Leukocyte Esterase,Urine Trace (Negative); Mucus,Urine Rare /hpf; Nitrite,Urine Negative (Negative); PH, Urine 6.5 (5.0-8.0); Protein,Urine Trace (Negative); RBC,Urine 1 /hpf (0-5); Specific Gravity,Urine 1.013 (1.001-1.035); Squamous Epithelial Cell,Urine <1 /hpf (0-4); Urobilinogen,Urine <2.0 mg/dL (<2.0); WBC,Urine 5 /hpf (0-5)
--- NOTE | 2021-03-05 00:10 | CT ---
EXAMINATION TYPE: CT abdomen pelvis w con DATE OF EXAM: 03/04/2021 COMPARISON: 09/17/2020 HISTORY: Upper Abd Pain CT DLP: 2518.40 mGycm Automated exposure control for dose reduction was used. CONTRAST: Performed with IV Contrast, patient injected with 80 mL of Isovue 300. There is some mild atelectasis at the lung bases. Heart is mildly enlarged. There is no pleural effus ion. Liver spleen stomach pancreas gallbladder appear intact. Bile ducts are not dilated. There is no adrenal mass. Kidneys show satisfactory contrast opacification. There is no hydronephrosi s. Delayed images show normal renal excretion. Ureters are not dilated. There is no retroperitoneal a denopathy. There are numerous sigmoid diverticula. Bladder distends smoothly. There is no inguinal he rnia. There is no free fluid in the pelvis. Appendix is normal. There is no mesenteric edema. There i s no ascites or free air. There is no bowel obstruction. There is 5 x 2 cm fat-containing umbilical h ernia. Lumbar vertebra show vacuum disc from L3 to S1. There is a mild subluxation at L4-5. There is no comp ression fracture. There is spurring of the endplates. There is multilevel lumbar facet arthropathy. B carlos pelvis is intact. The hip joints are intact. There are small degenerative cysts in the left and r ight acetabulum. IMPRESSION: There is some mild atelectasis at the lung bases similar to old exam. Mild cardiomegaly. Sigmoid diverticulosis without diverticulitis. No significant change compared to old exam.
[2021-03-05] MEDS ORDERED: HYDROmorphone 0.5 MG/0.5 ML SYRINGE IVP STA (00:17)
[2021-03-05] MEDS ORDERED: ONDANSETRON 4 MG/2 ML VIAL IVP PRN (00:34)
[2021-03-05] MEDS ORDERED: NALOXONE 0.4 MG/ML 1 ML VIAL IV PRN (00:34)
[2021-03-05 01:06] LABS: Glucose,Whole Blood 291 mg/dL (75-99)
[2021-03-05] MEDS: INSULIN ASPART (NovoLOG) 100 UNIT/ML VIAL SQ SCH ×4 (01:32→20:20)
[2021-03-05] MEDS: SODIUM CHLORIDE 0.9% 1,000 ML IV SCH ×2 (01:36→17:00)
--- NOTE | 2021-03-05 09:04 | P.GSCN ---
History of Present Illness Consult date: 03/05/21 History of present illness: 55-year-old male presented to the emergency department with complaints of abdominal pain. He states that the pain was in the right upper and right lower quadrant of his abdomen.He denies any fevers or chills. He denies any changes in his bowel function. He states that he had some dry heaving and some nausea that have been relieved. During my exam today, he states that his abdominal pain has resolved and he is no longer having any abdominal pain. He also is no longer having any dry heaving. CT of the abdomen and pelvis was completed with no obvious acute findings. There is a notable fat-containing hernia. Patient does have a large well-healed midline incision, that he states is from a gastric ulcer perforation. Patient is noted to have an elevated lactic acid at this time. He is also noted to have elevated potassium that is being treated by internal medicine.He was seen in August of this year due to abdominal pain at that time. No surgery was performed. The patient states that he was informed by previous surgeon that he is high risk for any abdominal surgery. Review of Systems All systems: negative Past Medical History Past Medical History: Diabetes Mellitus, GERD/Reflux, Hyperlipidemia, Hypertension, Osteoarthritis (OA), Prostate Disorder, Sleep Apnea/CPAP/BIPAP Additional Past Medical History / Comment(s): diverticulosis, hemmorhoids, constopation, varicose veins, ulcers History of Any Multi-Drug Resistant Organisms: None Reported Past Surgical History: Hernia Repair, Joint Replacement, Orthopedic Surgery Additional Past Surgical History / Comment(s): rt knee arthroscopy, tressa total knee replacments, egd/colonoscopy, tressa cataracts-lens implants, rt ing hernia, umb hernia,ventral hernia, exp lap -repair of perforated ulcer Past Anesthesia/Blood Transfusion Reactions: No Reported Reaction Past Psychological History: Depression Smoking Status: Never smoker Past Alcohol Use History: Rare Past Drug Use History: None Reported - Past Family History Mother Family Medical History: Diabetes Mellitus Additional Family Medical History / Comment(s): Mother at age 83 from complications from diabetes. Father Family Medical History: Coronary Artery Disease (CAD) Additional Family Medical History / Comment(s): Father at age 93 and only history was pacemaker implantation at age 93. Brother(s) History Unknown: Yes Additional Family Medical History / Comment(s): Patient was 1 brother that at age 77 with history of Alzheimer's disease and Parkinson's. Sister(s) Family Medical History: Cancer Additional Family Medical History / Comment(s): 2 SISTERS HAD BREAST CANCER Son(s) Additional Family Medical History / Comment(s): Patient has 2 sons and 5 daughters. One daughter from breast cancer at age 27. Other children have no major medical problems. Daughter(s) Family Medical History: Cancer Additional Family Medical History / Comment(s): BREAST CANCER AT 27, SURVIVED FOR 5 YEARS. Medications and Allergies Home Medications Medication Instructions Recorded Confirmed Type Simvastatin [Zocor] 40 mg PO HS 11/26/16 03/04/21 History Tamsulosin [Flomax] 0.4 mg PO PC-BID 11/26/16 03/04/21 History lisinopriL [Zestril] 2.5 mg PO DAILY 11/26/16 03/04/21 History Omeprazole 20 mg PO DAILY 08/30/20 03/04/21 History glipiZIDE/METFORMIN HCL 2 tab PO BID 08/30/20 03/04/21 History [glipiZIDE/METFORMIN HCL 2.5-500 mg] Metoprolol Tartrate [Lopressor] 25 mg PO BID #60 tab 09/04/20 03/04/21 Rx Nitroglycerin Sl Tabs [Nitrostat] 0.4 mg SUBLINGUAL Q5M PRN tab 09/04/20 03/04/21 Rx Insulin Glargine,Hum.rec.anlog 25 unit SQ DAILY 03/04/21 03/04/21 History [Karuna Pacheco U-100] Allergies Allergy/AdvReac Type Severity Reaction Status Date / Time No Known Allergies Allergy Verified 03/04/21 20:39 Surgical - Exam Osteopathic Statement: *. No significant issues noted on an osteopathic structu ral exam other than those noted in the History and Physical/Consult. Vital Signs Temp Pulse Resp BP Pulse Ox 98.8 F 86 18 169/84 98 03/04/21 19:20 03/04/21 19:20 03/04/21 19:20 03/04/21 19:20 03/04/21 19:20 - General well developed, well nourished, no distress - Eyes normal ocular movement - Neck trachea midline - Respiratory normal respiratory effort - Abdomen Soft, nontender, nondistended, no rebound, no guarding, midline incision is well-healed Results - Labs 03/04/21 20:52 03/04/21 23:55 Abnormal Lab Results - Last 24 Hours (Table) 03/04/21 03/04/21 03/04/21 Range/Units 20:52 20:52 20:52 WBC 13.7 H (3.8-10.6) k/uL RBC 4.13 L (4.30-5.90) m/uL Neutrophils # 11.7 H (1.3-7.7) k/uL Sodium 135 L (137-145) mmol/L Potassium 6.2 H* (3.5-5.1) mmol/L Carbon Dioxide 20 L (22-30) mmol/L BUN 22 H (9-20) mg/dL Creatinine 1.34 H (0.66-1.25) mg/dL Glucose 213 H (74-99) mg/dL POC Glucose (mg/dL) (75-99) mg/dL Plasma Lactic Acid Romeo (0.7-2.0) mmol/L Urine Protein Trace H (Negative) Urine Glucose (UA) 3+ H (Negative) Urine Ketones 1+ H (Negative) Ur Leukocyte Esterase Trace H (Negative) Urine Bacteria Rare H (None) /hpf Urine Mucus Rare H (None) /hpf 03/04/21 03/04/21 03/05/21 Range/Units 20:52 23:55 01:04 WBC (3.8-10.6) k/uL RBC (4.30-5.90) m/uL Neutrophils # (1.3-7.7) k/uL Sodium (137-145) mmol/L Potassium 5.3 H (3.5-5.1) mmol/L Carbon Dioxide (22-30) mmol/L BUN (9-20) mg/dL Creatinine (0.66-1.25) mg/dL Glucose (74-99) mg/dL POC Glucose (mg/dL) 291 H (75-99) mg/dL Plasma Lactic Acid Romeo 3.1 H* (0.7-2.0) mmol/L Urine Protein (Negative) Urine Glucose (UA) (Negative) Urine Ketones (Negative) Ur Leukocyte Esterase (Negative) Urine Bacteria (None) /hpf Urine Mucus (None) /hpf 03/05/21 03/05/21 Range/Units 02:05 06:26 WBC (3.8-10.6) k/uL RBC (4.30-5.90) m/uL Neutrophils # (1.3-7.7) k/uL Sodium (137-145) mmol/L Potassium (3.5-5.1) mmol/L Carbon Dioxide (22-30) mmol/L BUN (9-20) mg/dL Creatinine (0.66-1.25) mg/dL Glucose (74-99) mg/dL POC Glucose (mg/dL) (75-99) mg/dL Plasma Lactic Acid Romeo 3.4 H* 4.3 H* (0.7-2.0) mmol/L Urine Protein (Negative) Urine Glucose (UA) (Negative) Urine Ketones (Negative) Ur Leukocyte Esterase (Negative) Urine Bacteria (None) /hpf Urine Mucus (None) /hpf Diabetes panel 03/04/21 03/04/21 Range/Units 20:52 23:55 Sodium 135 L (137-145) mmol/L Potassium 6.2 H* 5.3 H (3.5-5.1) mmol/L Chloride 101 (98-107) mmol/L Carbon Dioxide 20 L (22-30) mmol/L BUN 22 H (9-20) mg/dL Creatinine 1.34 H (0.66-1.25) mg/dL Glucose 213 H (74-99) mg/dL Calcium 9.5 (8.4-10.2) mg/dL AST 28 (17-59) U/L ALT 23 (4-49) U/L Alkaline Phosphatase 97 (38-126) U/L Total Protein 7.2 (6.3-8.2) g/dL Albumin 4.3 (3.5-5.0) g/dL Calcium panel 03/04/21 Range/Units 20:52 Calcium 9.5 (8.4-10.2) mg/dL Albumin 4.3 (3.5-5.0) g/dL Pituitary panel 03/04/21 03/04/21 Range/Units 20:52 23:55 Sodium 135 L (137-145) mmol/L Potassium 6.2 H* 5.3 H (3.5-5.1) mmol/L Chloride 101 (98-107) mmol/L Carbon Dioxide 20 L (22-30) mmol/L BUN 22 H (9-20) mg/dL Creatinine 1.34 H (0.66-1.25) mg/dL Glucose 213 H (74-99) mg/dL Calcium 9.5 (8.4-10.2) mg/dL Adrenal panel 03/04/21 03/04/21 Range/Units 20:52 23:55 Sodium 135 L (137-145) mmol/L Potassium 6.2 H* 5.3 H (3.5-5.1) mmol/L Chloride 101 (98-107) mmol/L Carbon Dioxide 20 L (22-30) mmol/L BUN 22 H (9-20) mg/dL Creatinine 1.34 H (0.66-1.25) mg/dL Glucose 213 H (74-99) mg/dL Calcium 9.5 (8.4-10.2) mg/dL Total Bilirubin 0.5 (0.2-1.3) mg/dL AST 28 (17-59) U/L ALT 23 (4-49) U/L Alkaline Phosphatase 97 (38-126) U/L Total Protein 7.2 (6.3-8.2) g/dL Albumin 4.3 (3.5-5.0) g/dL Assessment and Plan Plan: 85-year-old male with abdominal pain of unknown etiology at this point. He also is noted to have lactic acidosis. He does have a reducible fat-containing Incisional hernia in the midline of his abdomen. He also is noted to have hyperkalemia. At this point, he does not appear to be any acute surgical abdominal issue. Patient's abdominal pain has completely resolved. CT of the abdomen and pelvis is negative for any acute abnormality or inflammatory changes around the bowel. Patient is not showing any physical exam findings of ischemic bowel at this time. He is nontender with no signs of rebound tenderness or guarding. There are no peritoneal signs. We will closely monitor the patient for any clinical changes that might require surgical intervention. He was informed in the past that he is very high risk for abdominal surgery based on his previous multiple abdominal procedures and overall clinical status. We will continue to follow along with you.
[2021-03-05] MEDS: METOPROLOL TARTRATE 25 MG TAB PO SCH ×2 (10:34→20:20)
[2021-03-05] MEDS: TAMSULOSIN 0.4 MG CAP.ER.24H PO SCH ×2 (10:34→16:58)
[2021-03-05] MEDS: PANTOPRAZOLE 40 MG TABLET PO SCH (10:34)
[2021-03-05 10:59] LABS: Albumin 3.4 g/dL (3.5-5.0); Calcium 8.7 mg/dL (8.4-10.2); Phosphorus 3.1 mg/dL (2.5-4.5); Total Bilirubin 0.7 mg/dL (0.2-1.3); Total Protein 6.1 g/dL (6.3-8.2)
[2021-03-05 11:30] LABS: Basophils % (A) 0 %; Eosinophils % (A) 0 %; HCT 38.6 % (39.0-53.0); HGB 12.5 gm/dL (13.0-17.5); Lymphocytes # (A) 1.2 k/uL (1.0-4.8); Lymphocytes % (A) 10 %; MCH 32.8 pg (25.0-35.0); MCHC 32.4 g/dL (31.0-37.0); MCV 101.3 fL (80.0-100.0); Macrocytosis Slight; Mean Platelet Volume 9.3; Monocytes # (A) 0.7 k/uL (0-1.0); Monocytes % (A) 5 %; Neutrophils # (A) 10.6 k/uL (1.3-7.7); Neutrophils % (A) 83 %; Platelet Count 248 k/uL (150-450); RBC 3.81 m/uL (4.30-5.90); RDW 13.6 % (11.5-15.5); WBC 12.7 k/uL (3.8-10.6)
[2021-03-05] MEDS: INSULIN DETEMIR (LEVEMIR) 100 UNIT/ML SYR SQ SCH (12:06)
[2021-03-05 12:26] LABS: Glucose,Whole Blood 165 mg/dL (75-99)
--- NOTE | 2021-03-05 15:13 | P.HPIM ---
History of Present Illness H&P Date: 03/05/21 his is an 85-year-old male patient of Dr. Larkin with past medical history of hypertension, hypertensive cardiovascular disease, hyperlipidemia, gastroesophageal reflux disease, diabetes mellitus type 2, obesity with obstructive sleep apnea and obesity hypoventilation syndrome, generalized osteoarthritis, chronic kidney disease stage IIIb. Last hospitalization in 08/30/2020 for fall at home. Patient presented to the hospital due to a fall at home. Patient presents to the ER with worsening abdominal pain associated with dry heaving and nausea. The patient denies any cough or shortness of breath. He walks at home with a walker but can only walk for a short distance and need wheelchair for mobility Patient been resolved by itself after a few hours. Patient denies any sick contacts denies any hematuria, melena or bright stool per rectum. On assessment patient is patient is afebrile pulse 80 respiratory rate 18 blood pressure 105/63. On the port area assessment patient was found to have a lactic acid of 4.3 WBC 13.7 hemoglobin 13.6, potassium 5.3 sodium 135 bicarb 20 BUN 22 creatinine 1.34. UA was +3+ glucose negative RBC or WBC. CT abdomen and pelvis suggestive of mild 8 elective significant lung base mild cardiomegaly sigmoid diverticulosis without diverticulitis 5 into to Sinemet fat-containing umbilical hernia is noted. Multilevel lumbar facet arthropathy noted REVIEW OF SYSTEMS Constitutional: No fever, no chills, no night sweats. No weight change. Reports weakness, Reports fatigue. EENT: No headache. No blurred vision or double vision, no loss of vision. Reports loss of Hearing. No nasal drainage or congestion. No epistaxis. No sore throat. Lungs: Reports shortness of breath, cough, no sputum production. No wheezing. Cardiovascular: No chest pain, no lower extremity edema. No palpitations. No paroxysmal nocturnal dyspnea. No orthopnea. No lightheadedness or dizziness. No syncopal episodes. Abdominal: Positive for abdominal pain. No nausea, vomiting. No diarrhea. No constipation. No bloody or tarry stools.. No loss of appetite. Genitourinary: No dysuria, increased frequency, urgency. No urinary retention. Musculoskeletal: No myalgias. Reports muscle weakness, Reports gait dysfunction, Reports falls. No back pain. No neck pain. Integumentary: No wounds, no lesions. No rash or pruritus. Neurologic: No aphasia. No facial droop. No change in mentation. No head injury. No headache. No paralysis. No paresthesia. Psychiatric: No depression. No anxiety. N Endocrine: No abnormal blood sugars. SOCIAL HISTORY She is and lives at with his . He is a nonsmoker. No alcohol use. Uses walker for short distances and wheelchair for most of the activities. FAMILY HISTORY Mother at age 83 from consultations from diabetes. Father at age 93 with history of pacemaker implantation at age 93. Patient has 1 brother that at age 77 with history of Alzheimer's disease and Parkinson's. Patient has 2 sisters that have had breast cancers. Patient has 2 sons and 5 daughters. One daughter from breast cancer diagnosed at age 27. PHYSICAL EXAMINATION Gen: This is an 85-year-old male. Patient is resting on the ER stretcher. Patient appears to be ill. HEENT: Head is atraumatic, normocephalic. Pupils equal, round. Sclerae is anicteric. NECK: Supple. No JVD. No lymphadenopathy. No thyromegaly. LUNGS: Diminished but otherwise Clear to auscultation. No wheezes or rhonchi. No intercostal retractions. HEART: Regular rate and rhythm. No murmur. ABDOMEN: Soft. Bowel sounds are present. No masses. No tenderness. Umbilical hernia noted in the center close to the incision EXTREMITIES: No pedal edema. No calf tenderness. Dorsalis pedis palpable bilaterally. NEUROLOGICAL: Patient is awake, alert and oriented x3. Cranial nerves 2 through 12 are grossly intact. ASSESSMENT AND PLAN 1. Diffuse abdominal pain unknown etiology. Incarcerated hernia ruled out with CAT scan. Continue IV fluids at 75 mL per hour. 2. Hyperkalemia likely secondary to acute kidney injury. Poor oral intake. Encouraged her to increase oral fluid Hold lisinopril continue IV fluids at 75 mL per hour 3 lactic acidosis. No source of infection or sepsis likely secondary to poor oral intake with uncontrolled diabetes. HbA1c ordered. Hold metformin. Lactic acidosis improved with IV fluids continue fluids at 75 mL per hour 4. Generalized weakness at baseline per family. PTOT consult placed 5. Hypertension, hypertensive cardiovascular disease. Follow-up blood pressure is on the low side. Hold lisinopril. Continue metoprolol 25 twice a day 6. Acute kidney injury on Chronic kidney disease stage IIIb. Lisinopril and Lasix on hold. Continue IV fluids at 75 mL per hour 7. Diabetes mellitus type 2 uncontrolled. HbA1c ordered. Hold glipizide and metformin. Patient will be placed on NovoLog scale before meals and at bedtime. Continue Levemir 25 subcu daily 8. Obesity with obstructive sleep apnea and obesity hypoventilation syndrome. Patient may have CPAP brought from home. 9. Gastroesophageal reflux disease and GI prophylaxis. Continue omeprazole or equivalent. 10. Benign prostatic hypertrophy. Continue Flomax 0.4 mg twice daily. 11. Hyperlipidemia. Continue atorvastatin 20 mg daily at bedtime 12. DVT prophylaxis. Heparin subcu every 12 Disposition -Patient will be admitted to the hospital for a minimum of 2 night stay. Past Medical History Past Medical History: Diabetes Mellitus, GERD/Reflux, Hyperlipidemia, Hypertension, Osteoarthritis (OA), Prostate Disorder, Sleep Apnea/CPAP/BIPAP Additional Past Medical History / Comment(s): diverticulosis, hemmorhoids, constopation, varicose veins, ulcers History of Any Multi-Drug Resistant Organisms: None Reported Past Surgical History: Hernia Repair, Joint Replacement, Orthopedic Surgery Additional Past Surgical History / Comment(s): rt knee arthroscopy, tressa total knee replacments, egd/colonoscopy, tressa cataracts-lens implants, rt ing hernia, umb hernia,ventral hernia, exp lap -repair of perforated ulcer Past Anesthesia/Blood Transfusion Reactions: No Reported Reaction Past Psychological History: Depression Smoking Status: Never smoker Past Alcohol Use History: Rare Past Drug Use History: None Reported - Past Family History Mother Family Medical History: Diabetes Mellitus Additional Family Medical History / Comment(s): Mother at age 83 from complications from diabetes. Father Family Medical History: Coronary Artery Disease (CAD) Additional Family Medical History / Comment(s): Father at age 93 and only history was pacemaker implantation at age 93. Brother(s) History Unknown: Yes Additional Family Medical History / Comment(s): Patient was 1 brother that at age 77 with history of Alzheimer's disease and Parkinson's. Sister(s) Family Medical History: Cancer Additional Family Medical History / Comment(s): 2 SISTERS HAD BREAST CANCER Son(s) Additional Family Medical History / Comment(s): Patient has 2 sons and 5 daughters. One daughter from breast cancer at age 27. Other children have no major medical problems. Daughter(s) Family Medical History: Cancer Additional Family Medical History / Comment(s): BREAST CANCER AT 27, SURVIVED FOR 5 YEARS. Medications and Allergies Home Medications Medication Instructions Recorded Confirmed Type Simvastatin [Zocor] 40 mg PO HS 11/26/16 03/04/21 History Tamsulosin [Flomax] 0.4 mg PO PC-BID 11/26/16 03/04/21 History lisinopriL [Zestril] 2.5 mg PO DAILY 11/26/16 03/04/21 History Omeprazole 20 mg PO DAILY 08/30/20 03/04/21 History glipiZIDE/METFORMIN HCL 2 tab PO BID 08/30/20 03/04/21 History [glipiZIDE/METFORMIN HCL 2.5-500 mg] Metoprolol Tartrate [Lopressor] 25 mg PO BID #60 tab 09/04/20 03/04/21 Rx Nitroglycerin Sl Tabs [Nitrostat] 0.4 mg SUBLINGUAL Q5M PRN tab 09/04/20 03/04/21 Rx Insulin Glargine,Hum.rec.anlog 25 unit SQ DAILY 03/04/21 03/04/21 History [Karuna Pacheco U-100] Allergies Allergy/AdvReac Type Severity Reaction Status Date / Time No Known Allergies Allergy Verified 03/04/21 20:39 Physical Exam Vitals: Vital Signs Temp Pulse Pulse Resp BP BP Pulse Ox 03/05/21 08:00 97.9 F 101 H 20 103/61 95 03/05/21 05:40 97.7 F 86 20 117/62 98 03/05/21 03:26 101 H 20 132/73 96 03/05/21 01:05 104 H 03/05/21 00:45 98 F 104 H 18 131/54 96 03/04/21 22:22 97.7 F 95 18 149/79 100 03/04/21 19:20 98.8 F 86 18 169/84 98 Intake and Output 03/04/21 03/05/21 03/05/21 22:59 06:59 14:59 Other: Weight 126.552 kg Results CBC & Chem 7: 03/05/21 09:24 03/05/21 09:24 Labs: Abnormal Lab Results - Last 24 Hours (Table) 03/04/21 03/04/21 03/04/21 Range/Units 20:52 20:52 20:52 WBC 13.7 H (3.8-10.6) k/uL RBC 4.13 L (4.30-5.90) m/uL Hgb (13.0-17.5) gm/dL Hct (39.0-53.0) % MCV (80.0-100.0) fL Neutrophils # 11.7 H (1.3-7.7) k/uL Sodium 135 L (137-145) mmol/L Potassium 6.2 H* (3.5-5.1) mmol/L Carbon Dioxide 20 L (22-30) mmol/L BUN 22 H (9-20) mg/dL Creatinine 1.34 H (0.66-1.25) mg/dL Glucose 213 H (74-99) mg/dL POC Glucose (mg/dL) (75-99) mg/dL Plasma Lactic Acid Romeo (0.7-2.0) mmol/L Total Protein (6.3-8.2) g/dL Albumin (3.5-5.0) g/dL Urine Protein Trace H (Negative) Urine Glucose (UA) 3+ H (Negative) Urine Ketones 1+ H (Negative) Ur Leukocyte Esterase Trace H (Negative) Urine Bacteria Rare H (None) /hpf Urine Mucus Rare H (None) /hpf 03/04/21 03/04/21 03/05/21 Range/Units 20:52 23:55 01:04 WBC (3.8-10.6) k/uL RBC (4.30-5.90) m/uL Hgb (13.0-17.5) gm/dL Hct (39.0-53.0) % MCV (80.0-100.0) fL Neutrophils # (1.3-7.7) k/uL Sodium (137-145) mmol/L Potassium 5.3 H (3.5-5.1) mmol/L Carbon Dioxide (22-30) mmol/L BUN (9-20) mg/dL Creatinine (0.66-1.25) mg/dL Glucose (74-99) mg/dL POC Glucose (mg/dL) 291 H (75-99) mg/dL Plasma Lactic Acid Romeo 3.1 H* (0.7-2.0) mmol/L Total Protein (6.3-8.2) g/dL Albumin (3.5-5.0) g/dL Urine Protein (Negative) Urine Glucose (UA) (Negative) Urine Ketones (Negative) Ur Leukocyte Esterase (Negative) Urine Bacteria (None) /hpf Urine Mucus (None) /hpf 03/05/21 03/05/21 03/05/21 Range/Units 02:05 06:26 09:24 WBC 12.7 H (3.8-10.6) k/uL RBC 3.81 L (4.30-5.90) m/uL Hgb 12.5 L (13.0-17.5) gm/dL Hct 38.6 L (39.0-53.0) % MCV 101.3 H (80.0-100.0) fL Neutrophils # 10.6 H (1.3-7.7) k/uL Sodium (137-145) mmol/L Potassium (3.5-5.1) mmol/L Carbon Dioxide (22-30) mmol/L BUN (9-20) mg/dL Creatinine (0.66-1.25) mg/dL Glucose (74-99) mg/dL POC Glucose (mg/dL) (75-99) mg/dL Plasma Lactic Acid Romeo 3.4 H* 4.3 H* (0.7-2.0) mmol/L Total Protein (6.3-8.2) g/dL Albumin (3.5-5.0) g/dL Urine Protein (Negative) Urine Glucose (UA) (Negative) Urine Ketones (Negative) Ur Leukocyte Esterase (Negative) Urine Bacteria (None) /hpf Urine Mucus (None) /hpf 03/05/21 Range/Units 09:24 WBC (3.8-10.6) k/uL RBC (4.30-5.90) m/uL Hgb (13.0-17.5) gm/dL Hct (39.0-53.0) % MCV (80.0-100.0) fL Neutrophils # (1.3-7.7) k/uL Sodium 134 L (137-145) mmol/L Potassium (3.5-5.1) mmol/L Carbon Dioxide (22-30) mmol/L BUN (9-20) mg/dL Creatinine (0.66-1.25) mg/dL Glucose 193 H (74-99) mg/dL POC Glucose (mg/dL) (75-99) mg/dL Plasma Lactic Acid Roemo (0.7-2.0) mmol/L Total Protein 6.1 L (6.3-8.2) g/dL Albumin 3.4 L (3.5-5.0) g/dL Urine Protein (Negative) Urine Glucose (UA) (Negative) Urine Ketones (Negative) Ur Leukocyte Esterase (Negative) Urine Bacteria (None) /hpf Urine Mucus (None) /hpf
[2021-03-05 16:39] LABS: Glucose,Whole Blood 187 mg/dL (75-99)
[2021-03-05 20:16] LABS: Glucose,Whole Blood 150 mg/dL (75-99)
[2021-03-05] MEDS: ATORVASTATIN 20 MG TAB PO SCH (20:20)
[2021-03-05 22:23] LABS: Hemoglobin A1C 6.6 % (4.0-6.0)
[2021-03-06 06:11] LABS: Glucose,Whole Blood 157 mg/dL (75-99)
[2021-03-06] MEDS: INSULIN ASPART (NovoLOG) 100 UNIT/ML VIAL SQ SCH ×4 (06:23→20:40)
[2021-03-06] MEDS: HYDROmorphone 0.5 MG/0.5 ML SYRINGE IVP PRN ×2 (06:24→12:00)
[2021-03-06] MEDS: SODIUM CHLORIDE 0.9% 1,000 ML IV SCH ×2 (06:26→17:35)
[2021-03-06 07:59] LABS: Basophils % (A) 1 %; Eosinophils # (A) 0.1 k/uL (0-0.7); Eosinophils % (A) 1 %; HCT 35.8 % (39.0-53.0); HGB 11.4 gm/dL (13.0-17.5); Lymphocytes # (A) 1.8 k/uL (1.0-4.8); Lymphocytes % (A) 20 %; MCH 31.8 pg (25.0-35.0); MCHC 31.9 g/dL (31.0-37.0); MCV 99.6 fL (80.0-100.0); Mean Platelet Volume 7.7; Monocytes # (A) 0.5 k/uL (0-1.0); Monocytes % (A) 6 %; Neutrophils # (A) 6.1 k/uL (1.3-7.7); Neutrophils % (A) 71 %; Platelet Count 192 k/uL (150-450); RBC 3.59 m/uL (4.30-5.90); RDW 13.1 % (11.5-15.5); WBC 8.6 k/uL (3.8-10.6)
[2021-03-06 08:08] LABS: Albumin 3.1 g/dL (3.5-5.0); Calcium 8.6 mg/dL (8.4-10.2); Potassium 4.5 mmol/L (3.5-5.1); Total Bilirubin 1.2 mg/dL (0.2-1.3); Total Protein 5.7 g/dL (6.3-8.2)
[2021-03-06] MEDS: METOPROLOL TARTRATE 25 MG TAB PO SCH ×2 (08:18→20:39)
[2021-03-06] MEDS: PANTOPRAZOLE 40 MG TABLET PO SCH (08:18)
[2021-03-06] MEDS: INSULIN DETEMIR (LEVEMIR) 100 UNIT/ML SYR SQ SCH (08:18)
[2021-03-06] MEDS: TAMSULOSIN 0.4 MG CAP.ER.24H PO SCH ×2 (08:18→17:34)
[2021-03-06 11:46] LABS: Glucose,Whole Blood 140 mg/dL (75-99)
--- NOTE | 2021-03-06 13:07 | P.PN ---
Subjective Progress Note Date: 03/06/21 Patient seen and examined at bedside. Patient denies abdominal pain. Tolerating diet. Objective - Vital Signs Vital signs: Vital Signs Temp 98.0 F 03/06/21 11:59 Pulse 72 03/06/21 11:59 Resp 16 03/06/21 11:59 BP 108/56 03/06/21 11:59 Pulse Ox 93 L 03/06/21 11:59 Intake & Output 03/05/21 03/06/21 03/06/21 18:59 06:59 18:59 Intake Total 500 225 580 Output Total 0 500 225 Balance 500 -275 355 Weight 126.552 kg 120.9 kg Intake: Intake, IV Titration 225 Amount Sodium Chloride 0.9% 1, 225 000 ml @ 75 mls/hr IV . [id number] [facility] Rx#:[id number] Oral 500 580 Output: Urine 0 500 225 Stool 0 0 Other: Voiding Method Urinal Urinal # Voids 0 1 1 # Bowel Movements 0 - Constitutional General appearance: Present: cooperative, no acute distress - Respiratory Details: No difficulty with respiration - Gastrointestinal Gastrointestinal Comment(s): Soft, nontender, nondistended, no rebound, no guarding - Labs CBC & Chem 7: 03/06/21 07:37 03/06/21 07:37 Labs: Abnormal Lab Results - Last 24 Hours (Table) 03/04/21 03/05/21 03/05/21 Range/Units 20:52 16:38 20:15 RBC (4.30-5.90) m/uL Hgb (13.0-17.5) gm/dL Hct (39.0-53.0) % Sodium (137-145) mmol/L Glucose (74-99) mg/dL POC Glucose (mg/dL) 187 H 150 H (75-99) mg/dL Hemoglobin A1c 6.6 H (4.0-6.0) % AST (17-59) U/L ALT (4-49) U/L Alkaline Phosphatase (38-126) U/L Total Protein (6.3-8.2) g/dL Albumin (3.5-5.0) g/dL 03/06/21 03/06/21 03/06/21 Range/Units 06:10 07:37 07:37 RBC 3.59 L (4.30-5.90) m/uL Hgb 11.4 L (13.0-17.5) gm/dL Hct 35.8 L (39.0-53.0) % Sodium 134 L (137-145) mmol/L Glucose 167 H (74-99) mg/dL POC Glucose (mg/dL) 157 H (75-99) mg/dL Hemoglobin A1c (4.0-6.0) % AST 90 H (17-59) U/L ALT 89 H (4-49) U/L Alkaline Phosphatase 127 H (38-126) U/L Total Protein 5.7 L (6.3-8.2) g/dL Albumin 3.1 L (3.5-5.0) g/dL 03/06/21 Range/Units 11:44 RBC (4.30-5.90) m/uL Hgb (13.0-17.5) gm/dL Hct (39.0-53.0) % Sodium (137-145) mmol/L Glucose (74-99) mg/dL POC Glucose (mg/dL) 140 H (75-99) mg/dL Hemoglobin A1c (4.0-6.0) % AST (17-59) U/L ALT (4-49) U/L Alkaline Phosphatase (38-126) U/L Total Protein (6.3-8.2) g/dL Albumin (3.5-5.0) g/dL Assessment and Plan Plan: 85-year-old male with abdominal pain of unknown etiology - Lactic acidosis has resolved - Tolerating clear liquid diet - Abdominal pain has significantly improved, patient longer having abdominal pain - Currently, nonsurgical
--- NOTE | 2021-03-06 14:07 | XR ---
EXAMINATION TYPE: XR abdomen 2V DATE OF EXAM: 03/06/2021 COMPARISON: NONE HISTORY: Pain TECHNIQUE: One view abdominal series FINDINGS: The osseous structures are intact. The bowel gas pattern is nonspecific. Lung bases are clear. Hype rtrophic and degenerative change of the spine. Calcifications in the pelvis likely vascular. Arthropa thy of the hips. There are multiple prominent small bowel loops in the right abdomen. IMPRESSION: 1. Nonspecific abdomen. Multiple prominent small bowel loops in the right abdomen. Related for ileus or enteritis. Partial obstruction not entirely excluded.
--- NOTE | 2021-03-06 15:05 | P.PN ---
Subjective Progress Note Date: 03/06/21 his is an 85-year-old male patient of Dr. Larkin with past medical history of hypertension, hypertensive cardiovascular disease, hyperlipidemia, gastroesophageal reflux disease, diabetes mellitus type 2, obesity with obstructive sleep apnea and obesity hypoventilation syndrome, generalized osteoa rthritis, chronic kidney disease stage IIIb. Last hospitalization in 08/30/2020 for fall at home. Patient presented to the hospital due to a fall at home. Patient presents to the ER with worsening abdominal pain associated with dry heaving and nausea. The patient denies any cough or shortness of breath. He walks at home with a walker but can only walk for a short distance and need wheelchair for mobility Patient been resolved by itself after a few hours. Patient denies any sick contacts denies any hematuria, melena or bright stool per rectum. On assessment patient is patient is afebrile pulse 80 respiratory rate 18 blood pressure 105/63. On the port area assessment patient was found to have a lactic acid of 4.3 WBC 13.7 hemoglobin 13.6, potassium 5.3 sodium 135 bicarb 20 BUN 22 creatinine 1.34. UA was +3+ glucose negative RBC or WBC. CT abdomen and pelvis suggestive of mild 8 elective significant lung base mild cardiomegaly sigmoid diverticulosis without diverticulitis 5 into to Sinemet fat-containing umbilical hernia is noted. Multilevel lumbar facet arthropathy noted 03/06 patient examined bedside. And had another episode of severe abdominal pain in the right lower quadrant of the belly. Pain improved with Dilaudid. Abdominal x-ray suggestive of prominent small bowel loops concerning for ileitis. Patient does endorse dry heaving but denies any vomiting. He had no bowel movement for past few days. CRP is elevated. Patient liver enzymes has worsened since yesterday with AST 90 ALT [address] abdomen reviewed again no pathology is reported of the liver and gallbladder. Ultrasound liver ordered to rule out gall stones. gastroenterology consulted. Patient initiated on Dulcolax 5 mg daily REVIEW OF SYSTEMS Constitutional: No fever, no chills, no night sweats. No weight change. Reports weakness, Reports fatigue. EENT: No headache. No blurred vision or double vision, no loss of vision. R eports loss of Hearing. No nasal drainage or congestion. No epistaxis. No sore throat. Lungs: Reports shortness of breath, cough, no sputum production. No wheezing. Cardiovascular: No chest pain, no lower extremity edema. No palpitations. No paroxysmal nocturnal dyspnea. No orthopnea. No lightheadedness or dizziness. No syncopal episodes. Abdominal: Positive for abdominal pain. Positive for dry heaving no vomiting. No diarrhea. Positive for constipation No bloody or tarry stools.. No loss of appetite. Genitourinary: No dysuria, increased frequency, urgency. No urinary retention. Musculoskeletal: No myalgias. Reports muscle weakness, Reports gait dysfunction, Reports falls. No back pain. No neck pain. Integumentary: No wounds, no lesions. No rash or pruritus. Neurologic: No aphasia. No facial droop. No change in mentation. No head injury. No headache. No paralysis. No paresthesia. Psychiatric: No depression. No anxiety. N Endocrine: No abnormal blood sugars. PHYSICAL EXAMINATION Gen: This is an 85-year-old male. Patient is resting on the ER stretcher. Patient appears to be ill. HEENT: Head is atraumatic, normocephalic. Pupils equal, round. Sclerae is anicteric. NECK: Supple. No JVD. No lymphadenopathy. No thyromegaly. LUNGS: Diminished but otherwise Clear to auscultation. No wheezes or rhonchi. No intercostal retractions. HEART: Regular rate and rhythm. No murmur. ABDOMEN: Soft. Bowel sounds are present. No masses. No tenderness. Umbilical hernia noted in the center close to the incision EXTREMITIES: No pedal edema. No calf tenderness. Dorsalis pedis palpable bilaterally. NEUROLOGICAL: Patient is awake, alert and oriented x3. Cranial nerves 2 through 12 are grossly intact. ASSESSMENT AND PLAN 1. Diffuse abdominal pain unknown etiology. Incarcerated hernia ruled out with CAT scan. Chest x-ray suggestive of ileitis. Patient endorses constipation. MiraLAX and Dulcolax initiated Continue IV fluids at 75 mL per hour. 2. Hyperkalemia likely secondary to acute kidney injury. Resolved Poor oral intake. Encouraged her to increase oral fluid Hold lisinopril continue IV fluids at 75 mL per hour 3 ileitis continue clear liquid diet. 4. lactic acidosis. Resolved No source of infection or sepsis likely secondary to poor oral intake with uncontrolled diabetes. HbA1c ordered. Hold metformin. Lactic acidosis improved with IV fluids continue fluids at 75 mL per hour 5. Generalized weakness at baseline per family. PTOT consult placed 6. Hypertension, hypertensive cardiovascular disease. Follow-up blood pressure is on the low side. Hold lisinopril. Continue metoprolol 25 twice a day 7. Acute kidney injury on Chronic kidney disease stage IIIb. Lisinopril and Lasix on hold. CMP suggest improvement in creatinine and hyperkalemia Continue IV fluids at 75 mL per hour 8. Diabetes mellitus type 2 uncontrolled. HbA1c ordered. Hold glipizide and metformin. Patient will be placed on NovoLog scale before meals and at bedtime. Continue Levemir 25 subcu daily 9. Obesity with obstructive sleep apnea and obesity hypoventilation syndrome. Patient may have CPAP brought from home. 10. Gastroesophageal reflux disease and GI prophylaxis. Continue omeprazole or equivalent. 11. Benign prostatic hypertrophy. Continue Flomax 0.4 mg twice daily. 12. Hyperlipidemia. Continue atorvastatin 20 mg daily at bedtime 13. DVT prophylaxis. Heparin subcu every 12 Disposition -likely discharge tomorrow depending upon the patient's symptom control Objective - Vital Signs Vital signs: Vital Signs Temp 98.0 F 03/06/21 11:59 Pulse 72 03/06/21 14:00 Resp 16 03/06/21 14:00 BP 108/56 03/06/21 11:59 Pulse Ox 93 L 03/06/21 11:59 Intake & Output 03/05/21 03/06/21 03/06/21 18:59 06:59 18:59 Intake Total 252 896 5052 Output Total 0 500 225 Balance 500 -275 1315 Weight 126.552 kg 120.9 kg Intake: Intake, IV Titration 225 Amount Sodium Chloride 0.9% 1, 225 000 ml @ 75 mls/hr IV . [id number] [facility] Rx#:[id number] Oral 500 1540 Output: Urine 0 500 225 Stool 0 0 Other: Voiding Method Urinal Urinal # Voids 0 1 1 # Bowel Movements 0 - Labs CBC & Chem 7: 03/06/21 07:37 03/06/21 07:37 Labs: Abnormal Lab Results - Last 24 Hours (Table) 03/04/21 03/05/21 03/05/21 Range/Units 20:52 16:38 20:15 RBC (4.30-5.90) m/uL Hgb (13.0-17.5) gm/dL Hct (39.0-53.0) % Sodium (137-145) mmol/L Glucose (74-99) mg/dL POC Glucose (mg/dL) 187 H 150 H (75-99) mg/dL Hemoglobin A1c 6.6 H (4.0-6.0) % AST (17-59) U/L ALT (4-49) U/L Alkaline Phosphatase (38-126) U/L C-Reactive Protein (<1.0) mg/dL Total Protein (6.3-8.2) g/dL Albumin (3.5-5.0) g/dL 03/06/21 03/06/21 03/06/21 Range/Units 06:10 07:37 07:37 RBC 3.59 L (4.30-5.90) m/uL Hgb 11.4 L (13.0-17.5) gm/dL Hct 35.8 L (39.0-53.0) % Sodium 134 L (137-145) mmol/L Glucose 167 H (74-99) mg/dL POC Glucose (mg/dL) 157 H (75-99) mg/dL Hemoglobin A1c (4.0-6.0) % AST 90 H (17-59) U/L ALT 89 H (4-49) U/L Alkaline Phosphatase 127 H (38-126) U/L C-Reactive Protein (<1.0) mg/dL Total Protein 5.7 L (6.3-8.2) g/dL Albumin 3.1 L (3.5-5.0) g/dL 03/06/21 03/06/21 Range/Units 11:44 14:07 RBC (4.30-5.90) m/uL Hgb (13.0-17.5) gm/dL Hct (39.0-53.0) % Sodium (137-145) mmol/L Glucose (74-99) mg/dL POC Glucose (mg/dL) 140 H (75-99) mg/dL Hemoglobin A1c (4.0-6.0) % AST (17-59) U/L ALT (4-49) U/L Alkaline Phosphatase (38-126) U/L C-Reactive Protein 8.1 H (<1.0) mg/dL Total Protein (6.3-8.2) g/dL Albumin (3.5-5.0) g/dL
--- NOTE | 2021-03-06 15:50 | P.CONS ---
History of Present Illness - Reason for Consult Consult date: 03/06/21 Elevated LFTs Requesting physician: Malika Malagon - Chief Complaint Abdominal pain - History of Present Illness This an 85-year-old white male with a past medical history of diabetes mellitus, chronic kidney disease stage III, diverticulosis, hyperlipidemia, hypertension, and GERD who presented to the emergency department 2 days ago with complaints of abdominal pain. Patient complains of mid to right upper quadrant pain. He's had similar pain in the past and was actually admitted and seen by gastroenterology in August of this year. At that time he had elevation in his LFTs and underwent a CT of the abdomen and pelvis. Showed underlying fatty liver disease. Patient currently states abdominal pain is improved. He denies any associated nausea or vomiting. Today he had some mild elevation in his LFTs for which gastroenterology was consulted. He had a CT of the abdomen and pelvis on admission showing some mild atelectasis at the lung bases similar to old exam. Mild cardiomegaly. Sigmoid diverticulosis without diverticulitis. No significant change compared to old exam. Shows liver spleen and stomach pancreas gallbladder appear intact. Bile ducts are not dilated. Today he underwent an abdominal x-ray showing nonspecific abdomen. Multiple prominent small bowel loops in the right abdomen. He related for ileus or enteritis. Partial obstruction not entirely excluded. Gen. surgery is following patient. Patient denies any previous history of liver disease, alcoholism, new medications, or family history of liver disease. Hepatitis panel was ordered on previous admission and patient was negative for hepatitis AP and see. Review of Systems REVIEW OF SYSTEMS: CARDIOPULMONARY: No chest pain or shortness of breath. Gastrointestinal: Presented with mid to right upper quadrant abdominal pain, now resolved.. No nausea or vomiting. No hematemesis, coffee-ground emesis. No rectal bleeding, or melena. GENITOURINARY: No dysuria or hematuria. MUSCULOSKELETAL: Reports normal range of motion., Joint pain. SKIN: No rashes. No jaundice. ENDOCRINE: No chills, fevers. No excessive weight gain or loss. No polydipsia or polyuria. PSYCHIATRIC: Unremarkable. NEUROLOGY: No change in mental status. Denies dizziness, headache. ENT: Vision unremarkable. CONSTITUTIONAL: No recent weight loss. No fever, chills, night sweats. Past Medical History Past Medical History: Diabetes Mellitus, GERD/Reflux, Hyperlipidemia, Hypertension, Osteoarthritis (OA), Prostate Disorder, Sleep Apnea/CPAP/BIPAP Additional Past Medical History / Comment(s): diverticulosis, hemmorhoids, constopation, varicose veins, ulcers History of Any Multi-Drug Resistant Organisms: None Reported Past Surgical History: Hernia Repair, Joint Replacement, Orthopedic Surgery Additional Past Surgical History / Comment(s): rt knee arthroscopy, tressa total knee replacments, egd/colonoscopy, tressa cataracts-lens implants, rt ing hernia, umb hernia,ventral hernia, exp lap -repair of perforated ulcer Past Anesthesia/Blood Transfusion Reactions: No Reported Reaction Past Psychological History: Depression Smoking Status: Never smoker Past Alcohol Use History: Rare Past Drug Use History: None Reported - Past Family History Mother Family Medical History: Diabetes Mellitus Additional Family Medical History / Comment(s): Mother at age 83 from complications from diabetes. Father Family Medical History: Coronary Artery Disease (CAD) Additional Family Medical History / Comment(s): Father at age 93 and only history was pacemaker implantation at age 93. Brother(s) History Unknown: Yes Additional Family Medical History / Comment(s): Patient was 1 brother that at age 77 with history of Alzheimer's disease and Parkinson's. Sister(s) Family Medical History: Cancer Additional Family Medical History / Comment(s): 2 SISTERS HAD BREAST CANCER Son(s) Additional Family Medical History / Comment(s): Patient has 2 sons and 5 daughters. One daughter from breast cancer at age 27. Other children have no major medical problems. Daughter(s) Family Medical History: Cancer Additional Family Medical History / Comment(s): BREAST CANCER AT 27, SURVIVED FOR 5 YEARS. Medications and Allergies Home Medications Medication Instructions Recorded Confirmed Type Simvastatin [Zocor] 40 mg PO HS 11/26/16 03/04/21 History Tamsulosin [Flomax] 0.4 mg PO PC-BID 11/26/16 03/04/21 History lisinopriL [Zestril] 2.5 mg PO DAILY 11/26/16 03/04/21 History Omeprazole 20 mg PO DAILY 08/30/20 03/04/21 History glipiZIDE/METFORMIN HCL 2 tab PO BID 08/30/20 03/04/21 History [glipiZIDE/METFORMIN HCL 2.5-500 mg] Metoprolol Tartrate [Lopressor] 25 mg PO BID #60 tab 09/04/20 03/04/21 Rx Nitroglycerin Sl Tabs [Nitrostat] 0.4 mg SUBLINGUAL Q5M PRN tab 09/04/20 03/04/21 Rx Insulin Glargine,Hum.rec.anlog 25 unit SQ DAILY 03/04/21 03/04/21 History [Basaglberna Pacheco U-100] Allergies Allergy/AdvReac Type Severity Reaction Status Date / Time No Known Allergies Allergy Verified 03/04/21 20:39 Physical Exam Vitals: Vital Signs Temp Pulse Resp BP Pulse Ox 03/06/21 14:00 72 16 03/06/21 11:59 98.0 F 72 16 108/56 93 L 03/06/21 08:16 98.2 F 87 16 118/68 92 L 03/06/21 08:00 87 16 03/06/21 04:00 98.0 F 67 16 116/65 95 03/06/21 01:12 90 16 03/06/21 00:00 97.9 F 89 18 128/71 94 L 03/05/21 19:27 98.2 F 89 16 120/69 97 03/05/21 16:25 98.9 F 74 16 96/57 97 Intake and Output 03/06/21 03/06/21 03/06/21 06:59 14:59 22:59 Intake Total 1540 Output Total 400 225 Balance -400 1315 Intake: Oral 1540 Output: Urine 400 225 Other: Voiding Method Urinal Urinal # Voids 1 1 Weight 120.9 kg General appearance: The patient is alert, oriented, appears in no acute distress. HET: Head is normocephalic and atraumatic. Conjunctiva pink. Sclera anicteric. Neck: Supple without lymphadenopathy. Trachea midline. Heart: S1 S2. Regular rate and rhythm. Lungs: Clear to auscultation. Abdomen: Soft, obese, nontender, nondistended with bowel sounds. No guarding or rigidity. Skin: No rashes. No jaundice. Extremities: Normal skin color and turgor. No pedal edema. Neurological: No focal deficits. Alert and oriented 3.. Results CBC & Chem 7: 03/06/21 07:37 03/06/21 07:37 Labs: Abnormal Lab Results - Last 24 Hours (Table) 03/04/21 03/05/21 03/05/21 Range/Units 20:52 16:38 20:15 RBC (4.30-5.90) m/uL Hgb (13.0-17.5) gm/dL Hct (39.0-53.0) % ESR (0-15) mm/hr Sodium (137-145) mmol/L Glucose (74-99) mg/dL POC Glucose (mg/dL) 187 H 150 H (75-99) mg/dL Hemoglobin A1c 6.6 H (4.0-6.0) % AST (17-59) U/L ALT (4-49) U/L Alkaline Phosphatase (38-126) U/L C-Reactive Protein (<1.0) mg/dL Total Protein (6.3-8.2) g/dL Albumin (3.5-5.0) g/dL 03/06/21 03/06/21 03/06/21 Range/Units 06:10 07:37 07:37 RBC 3.59 L (4.30-5.90) m/uL Hgb 11.4 L (13.0-17.5) gm/dL Hct 35.8 L (39.0-53.0) % ESR (0-15) mm/hr Sodium 134 L (137-145) mmol/L Glucose 167 H (74-99) mg/dL POC Glucose (mg/dL) 157 H (75-99) mg/dL Hemoglobin A1c (4.0-6.0) % AST 90 H (17-59) U/L ALT 89 H (4-49) U/L Alkaline Phosphatase 127 H (38-126) U/L C-Reactive Protein (<1.0) mg/dL Total Protein 5.7 L (6.3-8.2) g/dL Albumin 3.1 L (3.5-5.0) g/dL 03/06/21 03/06/21 03/06/21 Range/Units 11:44 14:07 14:07 RBC (4.30-5.90) m/uL Hgb (13.0-17.5) gm/dL Hct (39.0-53.0) % ESR 42 H (0-15) mm/hr Sodium (137-145) mmol/L Glucose (74-99) mg/dL POC Glucose (mg/dL) 140 H (75-99) mg/dL Hemoglobin A1c (4.0-6.0) % AST (17-59) U/L ALT (4-49) U/L Alkaline Phosphatase (38-126) U/L C-Reactive Protein 8.1 H (<1.0) mg/dL Total Protein (6.3-8.2) g/dL Albumin (3.5-5.0) g/dL Abdominal x-ray: report reviewed (Nonspecific abdomen. Multiple prominent small bowel loops in the right abdomen. Related for ileus or enteritis. Partial obstruction not entirely excluded.) CT scan - abdomen: report reviewed (Mild atelectasis at the lung bases similar to old exam. Mild cardiomegaly. Sigmoid diverticulosis without diverticulitis. No significant change compared to old exam.) Assessment and Plan (1) Elevated liver enzymes Narrative/Plan: 85-year-old male who presented to the emergency department 2 days ago with abdominal pain. Patient underwent a CT of the abdomen showing sigmoid diverticulosis without diverticulitis. No significant change compared to old exam. Patient's liver, spleen, stomach, pancreas, and gallbladder appear intact with no dilated bile ducts. He denied any associated nausea or vomiting with abdominal pain. He was admitted earlier this year in August for same complaints of abdominal pain. At that time he was also noted to have elevation in his LFTs and gastroenterology was consulted. He had an ultrasound and CT of the abdomen at that time as well showing fatty liver. He denies any new medications, no previous history of alcoholism, no known liver disease, or family history of liver disease. On admission patient was noted to have normal LFTs, today he had slight increase in LFTs. Total bilirubin 1.2, alkaline phos phatase 127, AST 90, ALT 89. Likely due to underlying fatty liver disease. Will repeat labs in the morning. Patient denies any new medications recently started. Current Visit: No Status: Acute Code(s): R74.8 - ABNORMAL LEVELS OF OTHER SERUM ENZYMES SNOMED Code(s): 281802655 Plan: 1. Continue symptomatic and supportive care 2. Diet as tolerated 3. Repeat CMP in the morning 4. Gen. surgery following patient 5. CT of the abdomen and pelvis reviewed Thank you for this consultation, we will continue to follow. Dr. Hilda Isaac I agree with the dictator's note, documented as a scribe by Ashley Flood.
[2021-03-06] MEDS: polyethylene glycoL 3350 17 GM POWD.PACK PO SCH (15:52)
[2021-03-06] MEDS: bisacodyL 5 MG TABLET.DR PO SCH (15:52)
[2021-03-06 16:46] LABS: Glucose,Whole Blood 117 mg/dL (75-99)
[2021-03-06] MEDS ORDERED: KETOROLAC 15 MG/ML 1 ML VIAL IVP PRN (19:41)
[2021-03-06] MEDS ORDERED: LEVOFLOXACIN 500MG-D5W PMX 500 MG in DEXTROSE/WATER 1 100ML.BAG IVPB SCH (20:00)
[2021-03-06 20:15] LABS: Glucose,Whole Blood 171 mg/dL (75-99)
[2021-03-06] MEDS: ATORVASTATIN 20 MG TAB PO SCH (20:39)
[2021-03-07] MEDS: metroNIDAZOLE-NS PMX 500 MG in SALINE 1 100ML.BAG IVPB SCH ×2 (00:58→08:28)
[2021-03-07 06:12] LABS: Glucose,Whole Blood 120 mg/dL (75-99)
[2021-03-07] MEDS: INSULIN ASPART (NovoLOG) 100 UNIT/ML VIAL SQ SCH ×2 (07:35→12:15)
[2021-03-07] MEDS: SODIUM CHLORIDE 0.9% 1,000 ML IV SCH (07:38)
[2021-03-07 07:52] LABS: Basophils % (A) 0 %; Eosinophils # (A) 0.1 k/uL (0-0.7); Eosinophils % (A) 1 %; HCT 36.3 % (39.0-53.0); HGB 12.2 gm/dL (13.0-17.5); Lymphocytes # (A) 2.2 k/uL (1.0-4.8); Lymphocytes % (A) 25 %; MCH 32.8 pg (25.0-35.0); MCHC 33.6 g/dL (31.0-37.0); MCV 97.8 fL (80.0-100.0); Monocytes # (A) 0.5 k/uL (0-1.0); Monocytes % (A) 5 %; Neutrophils # (A) 5.9 k/uL (1.3-7.7); Neutrophils % (A) 66 %; Platelet Count 200 k/uL (150-450); RBC 3.71 m/uL (4.30-5.90); RDW 13.5 % (11.5-15.5)
[2021-03-07 08:24] LABS: Calcium 8.6 mg/dL (8.4-10.2); Potassium 4.6 mmol/L (3.5-5.1); Total Protein 5.7 g/dL (6.3-8.2)
[2021-03-07 08:27] VITALS: RESP 16
[2021-03-07] MEDS: TAMSULOSIN 0.4 MG CAP.ER.24H PO SCH (08:28)
[2021-03-07] MEDS: INSULIN DETEMIR (LEVEMIR) 100 UNIT/ML SYR SQ SCH (08:28)
[2021-03-07] MEDS: PANTOPRAZOLE 40 MG TABLET PO SCH (08:28)
[2021-03-07] MEDS: polyethylene glycoL 3350 17 GM POWD.PACK PO SCH (08:28)
[2021-03-07] MEDS: METOPROLOL TARTRATE 25 MG TAB PO SCH (08:28)
[2021-03-07] MEDS: bisacodyL 5 MG TABLET.DR PO SCH (08:28)
--- NOTE | 2021-03-07 10:32 | US ---
EXAMINATION TYPE: US liver DATE OF EXAM: 03/07/2021 COMPARISON: CT 03/04/2021 CLINICAL HISTORY: acute transaminitis. Very difficult and limited exam due to patient body habitus an d overlying bowel gas EXAM MEASUREMENTS: Liver Length: 14.7 cm Gallbladder Wall: 0.5 cm CBD: 0.6 cm Right Kidney: 9.0 x 4.8 x 5.2 cm Pancreas: Obscured by bowel gas Liver: Heterogeneous. Limited visualization due to overlying bowel gas Gallbladder: Wall is thickened Evidence for sonographic Guerrero's sign: No CBD: wnl as visualized Right Kidney: No hydronephrosis or masses seen IMPRESSION: Liver heterogeneity may reflect underlying fatty hepatic infiltration. Correlate clinically.
[2021-03-07 11:57] LABS: Glucose,Whole Blood 141 mg/dL (75-99)
[2021-03-07 12:18] VITALS: BP 118/64; PULSE 78; TEMP 98.1
--- NOTE | 2021-03-07 13:10 | P.PN ---
Subjective Progress Note Date: 03/07/21 Patient seen and examined at bedside with Dr. Malagon at bedside as well. Patient currently is comfortable and denies abdominal pain. Denies nausea or vomiting. Tolerating diet. Objective - Vital Signs Vital signs: Vital Signs Temp 98.1 F 03/07/21 12:16 Pulse 78 03/07/21 12:16 Resp 16 03/07/21 12:16 BP 118/64 03/07/21 12:16 Pulse Ox 96 03/07/21 12:16 Intake & Output 03/06/21 03/07/21 03/07/21 18:59 06:59 18:59 Intake Total 1900 Output Total 225 Balance 1675 Weight 121.9 kg Intake: Oral 1900 Output: Urine 225 Other: Voiding Method Urinal Urinal Urinal # Voids 1 1 1 - Constitutional General appearance: Present: cooperative, no acute distress - Gastrointestinal Gastrointestinal Comment(s): soft, nontender, nondistended, reducible incisional hernia - Labs CBC & Chem 7: 03/07/21 07:29 03/07/21 07:29 Labs: Abnormal Lab Results - Last 24 Hours (Table) 03/06/21 03/06/21 03/06/21 Range/Units 14:07 14:07 16:44 RBC (4.30-5.90) m/uL Hgb (13.0-17.5) gm/dL Hct (39.0-53.0) % ESR 42 H (0-15) mm/hr Sodium (137-145) mmol/L Creatinine (0.66-1.25) mg/dL Glucose (74-99) mg/dL POC Glucose (mg/dL) 117 H (75-99) mg/dL ALT (4-49) U/L Alkaline Phosphatase (38-126) U/L C-Reactive Protein 8.1 H (<1.0) mg/dL Total Protein (6.3-8.2) g/dL Albumin (3.5-5.0) g/dL Lipase (23-300) U/L 03/06/21 03/07/21 03/07/21 Range/Units 20:14 06:10 07:29 RBC (4.30-5.90) m/uL Hgb (13.0-17.5) gm/dL Hct (39.0-53.0) % ESR (0-15) mm/hr Sodium 132 L (137-145) mmol/L Creatinine 1.35 H (0.66-1.25) mg/dL Glucose 126 H (74-99) mg/dL POC Glucose (mg/dL) 171 H 120 H (75-99) mg/dL ALT 81 H (4-49) U/L Alkaline Phosphatase 153 H (38-126) U/L C-Reactive Protein (<1.0) mg/dL Total Protein 5.7 L (6.3-8.2) g/dL Albumin 3.0 L (3.5-5.0) g/dL Lipase 11 L (23-300) U/L 03/07/21 03/07/21 Range/Units 07:29 11:56 RBC 3.71 L (4.30-5.90) m/uL Hgb 12.2 L (13.0-17.5) gm/dL Hct 36.3 L (39.0-53.0) % ESR (0-15) mm/hr Sodium (137-145) mmol/L Creatinine (0.66-1.25) mg/dL Glucose (74-99) mg/dL POC Glucose (mg/dL) 141 H (75-99) mg/dL ALT (4-49) U/L Alkaline Phosphatase (38-126) U/L C-Reactive Protein (<1.0) mg/dL Total Protein (6.3-8.2) g/dL Albumin (3.5-5.0) g/dL Lipase (23-300) U/L Assessment and Plan Plan: 85-year-old male with abdominal pain of unknown etiology - Lactic acidosis has resolved - Case discussed with Dr. Malagon. Currently, patient is nonsurgical. - Abdominal pain has significantly improved, patient longer having abdominal pain - GI recommendations - US reviewed, no acute gallbladder pathology noted. Wall thickening noted.
--- NOTE | 2021-03-07 14:31 | P.PN ---
Subjective Progress Note Date: 03/07/21 Principal diagnosis: Abdominal pain, elevated LFTs 85-year-old male with a history of multiple comorbidities who presented to the emergency department 3 days ago with complaints of sharp abdominal pain located in the mid abdomen to right upper quadrant. Patient has had intermittent pain since August and was seen in the hospital with extensive workup. At that time he also had elevated liver enzymes, CT of the abdomen and pelvis showed underlying fatty liver disease. Patient underwent a liver ultrasound this morning showing liver heterogeneity may reflect underlying fatty hepatic infiltration. Correlate clinically. LFT slightly improved. Patient denies any abdominal pain, nausea, or vomiting at this time. States overall abdominal discomfort has improved. Objective - Vital Signs Vital signs: Vital Signs Temp 98.0 F 03/07/21 08:25 Pulse 86 03/07/21 08:25 Resp 16 03/07/21 08:25 BP 150/73 03/07/21 08:25 Pulse Ox 96 03/07/21 08:25 Intake & Output 03/06/21 03/07/21 03/07/21 18:59 06:59 18:59 Intake Total 1900 Output Total 225 Balance 1675 Weight 121.9 kg Intake: Oral 1900 Output: Urine 225 Other: Voiding Method Urinal Urinal Urinal # Voids 1 1 1 - Exam General appearance: The patient is alert, oriented, appears in no acute distress. HET: Head is normocephalic and atraumatic. Conjunctiva pink. Sclera anicteric. Neck: Supple without lymphadenopathy. Abdomen: Soft, obese, right mid abdominal tenderness, nondistended with bowel sounds. No guarding or rigidity. Extremities: Normal skin color and turgor. No pedal edema Skin: No rashes, no jaundice Neurological: No focal deficits. Alert and oriented 3. - Labs CBC & Chem 7: 03/07/21 07:29 03/07/21 07:29 Labs: Abnormal Lab Results - Last 24 Hours (Table) 03/06/21 03/06/21 03/06/21 Range/Units 11:44 14:07 14:07 RBC (4.30-5.90) m/uL Hgb (13.0-17.5) gm/dL Hct (39.0-53.0) % ESR 42 H (0-15) mm/hr Sodium (137-145) mmol/L Creatinine (0.66-1.25) mg/dL Glucose (74-99) mg/dL POC Glucose (mg/dL) 140 H (75-99) mg/dL ALT (4-49) U/L Alkaline Phosphatase (38-126) U/L C-Reactive Protein 8.1 H (<1.0) mg/dL Total Protein (6.3-8.2) g/dL Albumin (3.5-5.0) g/dL Lipase (23-300) U/L 03/06/21 03/06/21 03/07/21 Range/Units 16:44 20:14 06:10 RBC (4.30-5.90) m/uL Hgb (13.0-17.5) gm/dL Hct (39.0-53.0) % ESR (0-15) mm/hr Sodium (137-145) mmol/L Creatinine (0.66-1.25) mg/dL Glucose (74-99) mg/dL POC Glucose (mg/dL) 117 H 171 H 120 H (75-99) mg/dL ALT (4-49) U/L Alkaline Phosphatase (38-126) U/L C-Reactive Protein (<1.0) mg/dL Total Protein (6.3-8.2) g/dL Albumin (3.5-5.0) g/dL Lipase (23-300) U/L 03/07/21 03/07/21 Range/Units 07:29 07:29 RBC 3.71 L (4.30-5.90) m/uL Hgb 12.2 L (13.0-17.5) gm/dL Hct 36.3 L (39.0-53.0) % ESR (0-15) mm/hr Sodium 132 L (137-145) mmol/L Creatinine 1.35 H (0.66-1.25) mg/dL Glucose 126 H (74-99) mg/dL POC Glucose (mg/dL) (75-99) mg/dL ALT 81 H (4-49) U/L Alkaline Phosphatase 153 H (38-126) U/L C-Reactive Protein (<1.0) mg/dL Total Protein 5.7 L (6.3-8.2) g/dL Albumin 3.0 L (3.5-5.0) g/dL Lipase 11 L (23-300) U/L Assessment and Plan (1) Elevated liver enzymes Narrative/Plan: 85-year-old male who presented to the emergency department 2 days ago with abdominal pain. Patient underwent a CT of the abdomen showing sigmoid diver ticulosis without diverticulitis. No significant change compared to old exam. Patient's liver, spleen, stomach, pancreas, and gallbladder appear intact with no dilated bile ducts. He denied any associated nausea or vomiting with abdominal pain. He was admitted earlier this year in August for same complaints of abdominal pain. At that time he was also noted to have elevation in his LFTs and gastroenterology was consulted. He had an ultrasound and CT of the abdomen at that time as well showing fatty liver. He denies any new medications, no previous history of alcoholism, no known liver disease, or family history of liver disease. On admission patient was noted to have normal LFTs, today he had slight increase in LFTs. Total bilirubin 1.2, alkaline phosphatase 127, AST 90, ALT 89. Likely due to underlying fatty liver disease. Will repeat labs in the morning. Patient denies any new medications recently started. Liver ultrasound consistent with fatty liver. LFTs trending down. Current Visit: No Status: Acute Code(s): R74.8 - ABNORMAL LEVELS OF OTHER SERUM ENZYMES SNOMED Code(s): 613915032 Plan: 1. Continue symptomatic and supportive care 2. Diet as tolerated 3. Liver ultrasound reviewed, liver heterogeneity consistent with fatty hepatic infiltration 4. Gen. surgery following patient 5. No further workup indicated, may follow out patient as needed Thank you for this consultation, patient is cleared for discharge from gastroe nterology. Dr. Hilda Isaac I agree with the dictator's note, documented as a scribe by Ashley Flood.
--- NOTE | 2021-03-07 15:59 | P.DS ---
Providers Date of admission: 03/05/21 00:27 Attending physician: Leonard Larkin Consults: 03/05/21 00:34 Consult Physician Routine Consulting Provider: Rafiq Sanderson Consult Reason/Comments: intractable abdominal pain, Do you want consulting provider notified?: Yes 03/06/21 13:08 Consult Physician Routine Consulting Provider: Margarita Isaac Consult Reason/Comments: right lower qud pain, acute elevation of liver enzymes Do you want consulting provider notified?: Yes Primary care physician: Leonard Larkin [facility] Course: This is an 85-year-old male patient of Dr. Larkin with past medical hi story of hypertension, hypertensive cardiovascular disease, hyperlipidemia, gastroesophageal reflux disease, diabetes mellitus type 2, obesity with obstructive sleep apnea and obesity hypoventilation syndrome, generalized osteoarthritis, chronic kidney disease stage IIIb. Last hospitalization in 08/30/2020 for fall at home. Patient presented to the hospital due to a fall at home. Patient presents to the ER with worsening abdominal pain associated with dry heaving and nausea. The patient denies any cough or shortness of breath. He walks at home with a walker but can only walk for a short distance and need wheelchair for mobility Patient been resolved by itself after a few hours. Patient denies any sick contacts denies any hematuria, melena or bright stool per rectum. On assessment patient is patient is afebrile pulse 80 respiratory rate 18 blood pressure 105/63. On the port area assessment patient was found to have a lactic acid of 4.3 WBC 13.7 hemoglobin 13.6, potassium 5.3 sodium 135 bicarb 20 BUN 22 creatinine 1.34. UA was +3+ glucose negative RBC or WBC. CT abdomen and pelvis suggestive of mild 8 elective significant lung base mild cardiomegaly sigmoid diverticulosis without diverticulitis 5 into to Sinemet fat-containing umbilical hernia is noted. Multilevel lumbar facet arthropathy noted 03/06 patient examined bedside. And had another episode of severe abdominal pain in the right lower quadrant of the belly. Pain improved with Dilaudid. Abdominal x-ray suggestive of prominent small bowel loops concerning for ileitis. Patient does endorse dry heaving but denies any vomiting. He had no bowel movement for past few days. CRP is elevated. Patient liver enzymes has worsened since yesterday with AST 90 ALT [address] abdome n reviewed again no pathology is reported of the liver and gallbladder. Ultrasound liver ordered to rule out gall stones. gastroenterology consulted. Patient initiated on Dulcolax 5 mg daily 03/07 patient examined bedside. He had another episode of sharp pain in the right lower quadrant in the night. Detailed discussion was made with gastroenterology and neurosurgery who did not think patient need a surgical intervention. Patient might have enteritis and may benefit from a short course of antibiotics. No symptoms suggestive of ischemic colitis. Abdominal exam is benign. Vitals are stable sodium 132 potassium 4.6 BUN 17 creatinine 1.35 AST normalized at 56 ALT 81. Alkaline phosphatase 153 liver ultrasound reviewed on gallbladder wall was thickened but no evidence of obstruction noted. Recommend bowel regimen including MiraLAX and Dulcolax. Patient to follow with primary care physician as outpatient for further plan PHYSICAL EXAMINATION Gen: This is an 85-year-old male. Patient is resting on the ER stretcher. Patient appears to be ill. HEENT: Head is atraumatic, normocephalic. Pupils equal, round. Sclerae is anicteric. NECK: Supple. No JVD. No lymphadenopathy. No thyromegaly. LUNGS: Diminished but otherwise Clear to auscultation. No wheezes or rhonchi. No intercostal retractions. HEART: Regular rate and rhythm. No murmur. ABDOMEN: Soft. Bowel sounds are present. No masses. No tenderness. Umbilical hernia noted in the center close to the incision EXTREMITIES: No pedal edema. No calf tenderness. Dorsalis pedis palpable bilaterally. NEUROLOGICAL: Patient is awake, alert and oriented x3. Cranial nerves 2 through 12 are grossly intact. ASSESSMENT AND PLAN 1. Diffuse abdominal pain likely enteritis. Incarcerated hernia ruled out with CAT scan. Ischemic colitis ruled out Chest x-ray suggestive of ileitis. 2. ileitis 3. lactic acidosis. Resolved 4. Generalized weakness at baseline per family. 5. Hypertension, hypertensive cardiovascular disease. 6. Acute kidney injury on Chronic kidney disease stage IIIb. 7. Diabetes mellitus type 2 uncontrolled. 8. Obesity with obstructive sleep apnea and obesity hypoventilation syndrome. 9. Gastroesophageal reflux disease 10. Benign prostatic hypertrophy. 11. Hyperlipidemia. Disposition -likely discharge home with self care Patient Condition at Discharge: Stable Plan - Discharge Summary New Discharge Prescriptions: New bisacodyL [Dulcolax] 5 mg PO DAILY #30 tab polyethylene glycoL 3350 [Miralax] 17 gm PO DAILY powd.pack metroNIDAZOLE [Flagyl] 500 mg PO Q8HR #21 tab levoFLOXacin 500 mg PO DAILY 7 Days #1 tab Continue Tamsulosin [Flomax] 0.4 mg PO PC-BID Simvastatin [Zocor] 40 mg PO HS lisinopriL [Zestril] 2.5 mg PO DAILY glipiZIDE/METFORMIN HCL [glipiZIDE/METFORMIN HCL 2.5-500 mg] 2 tab PO BID Omeprazole 20 mg PO DAILY Metoprolol Tartrate [Lopressor] 25 mg PO BID #60 tab Nitroglycerin Sl Tabs [Nitrostat] 0.4 mg SUBLINGUAL Q5M PRN tab PRN Reason: Chest Pain Insulin Glargine,Hum.rec.anlog [Basaglar Kwikpen U-100] 25 unit SQ DAILY Discharge Medication List Simvastatin [Zocor] 40 mg PO HS 11/26/16 [History] Tamsulosin [Flomax] 0.4 mg PO PC-BID 11/26/16 [History] lisinopriL [Zestril] 2.5 mg PO DAILY 11/26/16 [History] Omeprazole 20 mg PO DAILY 08/30/20 [History] glipiZIDE/METFORMIN HCL [glipiZIDE/METFORMIN HCL 2.5-500 mg] 2 tab PO BID 08/30/20 [History] Metoprolol Tartrate [Lopressor] 25 mg PO BID #60 tab 09/04/20 [Rx] Nitroglycerin Sl Tabs [Nitrostat] 0.4 mg SUBLINGUAL Q5M PRN tab 09/04/20 [Rx] Insulin Glargine,Hum.rec.anlog [Basaglar Kwikpen U-100] 25 unit SQ DAILY 03/04/21 [History] bisacodyL [Dulcolax] 5 mg PO DAILY #30 tab 03/07/21 [Rx] levoFLOXacin 500 mg PO DAILY 7 Days #1 tab 03/07/21 [Rx] metroNIDAZOLE [Flagyl] 500 mg PO Q8HR #21 tab 03/07/21 [Rx] polyethylene glycoL 3350 [Miralax] 17 gm PO DAILY powd.pack 03/07/21 [Rx] Follow up Appointment(s)/Referral(s): Leonard Larkin MD [Primary Care Provider] - 1-2 days [facility], [NON-STAFF] - Patient Instructions/Handouts: Hyperkalemia (DC), Acute Abdominal Pain (DC) Discharge Disposition: HOME SELF-CARE
== END 2021-03-07 14:46 | disposition home or self-care (01) | DRG 392 ==
LOC: EC 18:50 → 3SCARD 03-05 00:27
PROVIDERS: ADMIT Internal Medicine Geriatric Medicine; ATTEND Internal Medicine Geriatric Medicine
DX: K52.9 Noninfective gastroenteritis and colitis, unspecified (principal); E66.2 Morbid (severe) obesity with alveolar hypoventilation; E87.2 Acidosis; J98.11 Atelectasis; N17.9 Acute kidney failure, unspecified; I12.9 Hypertensive chronic kidney disease with stage 1 through stage 4 chronic kidney disease, or unspecified chronic kidney disease; K21.9 Gastro-esophageal reflux disease without esophagitis; E11.22 Type 2 diabetes mellitus with diabetic chronic kidney disease; E11.65 Type 2 diabetes mellitus with hyperglycemia; E78.5 Hyperlipidemia, unspecified; E87.5 Hyperkalemia; F32.9 Major depressive disorder, single episode, unspecified; I83.90 Asymptomatic varicose veins of unspecified lower extremity; K57.30 Diverticulosis of large intestine without perforation or abscess without bleeding; K76.0 Fatty (change of) liver, not elsewhere classified; M15.9 Polyosteoarthritis, unspecified; M47.816 Spondylosis without myelopathy or radiculopathy, lumbar region; N18.32 Chronic kidney disease, stage 3b; N40.0 Benign prostatic hyperplasia without lower urinary tract symptoms; Z91.81 History of falling; Z79.4 Long term (current) use of insulin; Z79.899 Other long term (current) drug therapy; Z96.653 Presence of artificial knee joint, bilateral; Z96.1 Presence of intraocular lens; Z99.3 Dependence on wheelchair; Z68.37 Body mass index [BMI] 37.0-37.9, adult
CPT/HCPCS: 36415; 74019; 74177; 76705; 80053; 81001; 82150; 83036; 83605; 83690; 83970; 84100; 84132; 85025; 85610; 85652; 85730; 86140; 93005; 96361; 96372; 96374; 96375; 96376; 99285

== ENCOUNTER 2021-06-04 13:53 | Inpatient (IN) | payer MEDICARE ==
[2021-06-04] MEDS ORDERED: SODIUM CHLORIDE 0.9% 500 ML 500 ML IV STA (14:31)
--- NOTE | 2021-06-04 14:39 | ED ---
General Adult HPI - General Chief complaint: Shortness of Breath Stated complaint: Covid+, SOB Time Seen by Provider: 06/04/21 14:00 Source: patient, EMS, RN notes reviewed, old records reviewed Mode of arrival: EMS Limitations: no limitations - History of Present Illness Initial comments: This is an 86-year-old male presents emergency Department with a 8 day history of shortness of breath and cough. Patient states he was told he had COVID yesterday for the first time. Patient states she's been short of breath worsening last few days. According to the for department he was satting 88% on room air. Patient denies any chest pain or palpitations currently. Patient denies headache patient denies numbness weakness. Patient denies abdominal pain patient denies nausea vomiting diarrhea. Patient is a poor historian he answers questions very slowly. No one is with the patient to help out. - Related Data Home Medications Medication Instructions Recorded Confirmed Simvastatin [Zocor] 40 mg PO HS 11/26/16 03/04/21 Tamsulosin [Flomax] 0.4 mg PO PC-BID 11/26/16 03/04/21 lisinopriL [Zestril] 2.5 mg PO DAILY 11/26/16 03/04/21 Omeprazole 20 mg PO DAILY 08/30/20 03/04/21 glipiZIDE/METFORMIN HCL 2 tab PO BID 08/30/20 03/04/21 [glipiZIDE/METFORMIN HCL 2.5-500 mg] Insulin Glargine,Hum.rec.anlog 25 unit SQ DAILY 03/04/21 03/04/21 [Basaglar Venkateshpen U-100] Previous Rx's Medication Instructions Recorded Metoprolol Tartrate [Lopressor] 25 mg PO BID #60 tab 09/04/20 Nitroglycerin Sl Tabs [Nitrostat] 0.4 mg SUBLINGUAL Q5M PRN tab 09/04/20 bisacodyL [Dulcolax] 5 mg PO DAILY #30 tab 03/07/21 levoFLOXacin 500 mg PO DAILY 7 Days #1 tab 03/07/21 metroNIDAZOLE [Flagyl] 500 mg PO Q8HR #21 tab 03/07/21 polyethylene glycoL 3350 [Miralax] 17 gm PO DAILY powd.pack 03/07/21 Allergies Allergy/AdvReac Type Severity Reaction Status Date / Time No Known Allergies Allergy Verified 06/04/21 14:04 Review of Systems ROS Statement: Those systems with pertinent positive or pertinent negative responses have been documented in the HPI. ROS Other: All systems not noted in ROS Statement are negative. Past Medical History Past Medical History: Diabetes Mellitus, GERD/Reflux, Hyperlipidemia, Hypertension, Osteoarthritis (OA), Prostate Disorder, Sleep Apnea/CPAP/BIPAP Additional Past Medical History / Comment(s): diverticulosis, hemmorhoids, constopation, varicose veins, ulcers History of Any Multi-Drug Resistant Organisms: None Reported Past Surgical History: Hernia Repair, Joint Replacement, Orthopedic Surgery Additional Past Surgical History / Comment(s): rt knee arthroscopy, tressa total knee replacments, egd/colonoscopy, tressa cataracts-lens implants, rt ing hernia, umb hernia,ventral hernia, exp lap -repair of perforated ulcer Past Anesthesia/Blood Transfusion Reactions: No Reported Reaction Past Psychological History: Depression Smoking Status: Never smoker Past Alcohol Use History: Rare Past Drug Use History: None Reported - Past Family History Mother Family Medical History: Diabetes Mellitus Additional Family Medical History / Comment(s): Mother at age 83 from complications from diabetes. Father Family Medical History: Coronary Artery Disease (CAD) Additional Family Medical History / Comment(s): Father at age 93 and only history was pacemaker implantation at age 93. Brother(s) History Unknown: Yes Additional Family Medical History / Comment(s): Patient was 1 brother that at age 77 with history of Alzheimer's disease and Parkinson's. Sister(s) Family Medical History: Cancer Additional Family Medical History / Comment(s): 2 SISTERS HAD BREAST CANCER Son(s) Additional Family Medical History / Comment(s): Patient has 2 sons and 5 daughters. One daughter from breast cancer at age 27. Other children have no major medical problems. Daughter(s) Family Medical History: Cancer Additional Family Medical History / Comment(s): BREAST CANCER AT 27, SURVIVED FOR 5 YEARS. General Exam - General Exam Comments Initial Comments: GENERAL: Patient is well-developed and well-nourished. Patient is nontoxic and well- hydrated and is in mild distress. ENT: Neck is soft and supple. No significant lymphadenopathy is noted. Oropharynx is clear. Moist mucous membranes. Neck has full range of motion without eliciting any pain. EYES: The sclera were anicteric and conjunctiva were pink and moist. Extraocular movements were intact and pupils were equal round and reactive to light. Eyelids were unremarkable. PULMONARY: Unlabored respirations. Good breath sounds bilaterally. Bilateral crackles CARDIOVASCULAR: There is a regular rate and rhythm without any murmurs gallops or rubs. ABDOMEN: Soft and nontender with normal bowel sounds. SKIN: Skin is clear with no lesions or rashes and otherwise unremarkable. NEUROLOGIC: Patient is alert and oriented x3. Cranial nerves II through XII are grossly intact. Motor and sensory are also intact. Normal speech, volume and content. Symmetrical smile. MUSCULOSKELETAL: Normal extremities with adequate strength and full range of motion. No lower extremity swelling or edema. No calf tenderness. LYMPHATICS: No significant lymphadenopathy is noted PSYCHIATRIC: Normal psychiatric evaluation. Limitations: no limitations Course Vital Signs 06/04/21 06/04/21 06/04/21 14:01 14:40 14:45 Temperature 98.5 F Pulse Rate 97 87 Respiratory 18 16 Rate Blood Pressure 120/68 112/67 O2 Sat by Pulse 93 L 88 L 94 L Oximetry 06/04/21 06/04/21 06/04/21 14:57 15:00 15:03 Temperature Pulse Rate 87 Respiratory 16 22 Rate Blood Pressure 112/67 O2 Sat by Pulse 97 89 L Oximetry 06/04/21 16:00 Temperature Pulse Rate 76 Respiratory 18 Rate Blood Pressure 101/73 O2 Sat by Pulse 96 Oximetry Medical Decision Making - Medical Decision Making EKG shows normal sinus rhythm at 89 bpm SD interval is 156 QRS is under QT interval 366 QTC is 445. Patient's EKG shows no ST segment elevation or depression patient does have Q waves in leads 2 and 3. X-ray shows COVID pneumonia. I started the patient on Decadron. Patient is descending into the upper 80s so patient is unable to go home and will be admitted. I spoke with Dr. Malagon she agreed to admit the patient admitted the patient I wrote admitting orders to continue steroids I consult pulmonary. Replaced the patient's magnesium. - Lab Data Result diagrams: 06/04/21 14:34 06/04/21 14:34 Lab Results 06/04/21 06/04/21 06/04/21 Range/Units 14:34 14:34 14:34 WBC 3.8 (3.8-10.6) k/uL RBC 3.90 L (4.30-5.90) m/uL Hgb 12.4 L (13.0-17.5) gm/dL Hct 37.2 L (39.0-53.0) % MCV 95.5 (80.0-100.0) fL MCH 31.9 (25.0-35.0) pg MCHC 33.4 (31.0-37.0) g/dL RDW 13.6 (11.5-15.5) % Plt Count 164 (150-450) k/uL MPV 7.5 PT 10.4 (9.0-12.0) sec INR 1.0 (<1.2) APTT 30.1 H (22.0-30.0) sec Sodium 133 L (137-145) mmol/L Potassium 3.8 (3.5-5.1) mmol/L Chloride 100 (98-107) mmol/L Carbon Dioxide 24 (22-30) mmol/L Anion Gap 9 mmol/L BUN 21 H (9-20) mg/dL Creatinine 1.73 H (0.66-1.25) mg/dL Est GFR (CKD-EPI)AfAm 40 (>60 ml/min/1.73 sqM) Est GFR (CKD-EPI)NonAf 35 (>60 ml/min/1.73 sqM) Glucose 237 H (74-99) mg/dL Plasma Lactic Acid Romeo (0.7-2.0) mmol/L Calcium 8.2 L (8.4-10.2) mg/dL Magnesium 1.5 L (1.6-2.3) mg/dL Total Bilirubin 0.6 (0.2-1.3) mg/dL AST 65 H (17-59) U/L ALT 55 H (4-49) U/L Alkaline Phosphatase 132 H (38-126) U/L Troponin I (0.000-0.034) ng/mL NT-Pro-B Natriuret Pep pg/mL Total Protein 6.2 L (6.3-8.2) g/dL Albumin 3.3 L (3.5-5.0) g/dL 06/04/21 06/04/21 06/04/21 Range/Units 14:34 14:34 14:34 WBC (3.8-10.6) k/uL RBC (4.30-5.90) m/uL Hgb (13.0-17.5) gm/dL Hct (39.0-53.0) % MCV (80.0-100.0) fL MCH (25.0-35.0) pg MCHC (31.0-37.0) g/dL RDW (11.5-15.5) % Plt Count (150-450) k/uL MPV PT (9.0-12.0) sec INR (<1.2) APTT (22.0-30.0) sec Sodium (137-145) mmol/L Potassium (3.5-5.1) mmol/L Chloride (98-107) mmol/L Carbon Dioxide (22-30) mmol/L Anion Gap mmol/L BUN (9-20) mg/dL Creatinine (0.66-1.25) mg/dL Est GFR (CKD-EPI)AfAm (>60 ml/min/1.73 sqM) Est GFR (CKD-EPI)NonAf (>60 ml/min/1.73 sqM) Glucose (74-99) mg/dL Plasma Lactic Acid Romeo 1.0 (0.7-2.0) mmol/L Calcium (8.4-10.2) mg/dL Magnesium (1.6-2.3) mg/dL Total Bilirubin (0.2-1.3) mg/dL AST (17-59) U/L ALT (4-49) U/L Alkaline Phosphatase (38-126) U/L Troponin I 0.030 (0.000-0.034) ng/mL NT-Pro-B Natriuret Pep 981 pg/mL Total Protein (6.3-8.2) g/dL Albumin (3.5-5.0) g/dL Critical Care Time Critical Care Time: Yes Total Critical Care Time: 35 Disposition Clinical Impression: Pneumonia due to COVID-19 virus, Hypomagnesemia Disposition: ADMITTED IP TO THIS [facility] Referrals: Leonard Larkin MD [Primary Care Provider] - 1-2 days Time of Disposition: 16:59
[2021-06-04 15:07] LABS: Albumin 3.3 g/dL (3.5-5.0); Calcium 8.2 mg/dL (8.4-10.2); Magnesium 1.5 mg/dL (1.6-2.3); Partial Thromboplastin Time 30.1 sec (22.0-30.0); Potassium 3.8 mmol/L (3.5-5.1); Prothrombin Time 10.4 sec (9.0-12.0); Total Bilirubin 0.6 mg/dL (0.2-1.3); Total Protein 6.2 g/dL (6.3-8.2)
[2021-06-04 15:10] LABS: HCT 37.2 % (39.0-53.0); HGB 12.4 gm/dL (13.0-17.5); MCH 31.9 pg (25.0-35.0); MCHC 33.4 g/dL (31.0-37.0); MCV 95.5 fL (80.0-100.0); Mean Platelet Volume 7.5; Platelet Count 164 k/uL (150-450); RDW 13.6 % (11.5-15.5); WBC 3.8 k/uL (3.8-10.6)
--- NOTE | 2021-06-04 15:12 | XR ---
EXAMINATION TYPE: XR chest 1V portable DATE OF EXAM: 06/04/2021 Comparison: 08/30/2020 Clinical History: 86-year-old male Shortness of breath Findings: Heart is enlarged. There is patchy retrocardiac opacity and mild interstitial change at the right bas e. Impression: 1. Cardiomegaly. 2. Retrocardiac infiltrate and some mild interstitial infiltrate at the right base. Developing CHF ve rsus COVID pneumonia not excluded.
[2021-06-04] MEDS ORDERED: SODIUM CHLORIDE 0.9% 1,000 ML IV ONE (16:59)
[2021-06-04 17:20] LABS: Band Neutrophils % 1 %; Lymphocytes # (M) 1.29 k/uL (1.0-4.8); Neutrophils % (M) 57 %; Nucleated Red Blood Cells 0 /100 WBC (0-0); Total Cells Counted 100
[2021-06-04] MEDS: MAGNESIUM SULFATE-D5W PMX 1 GM in DEXTROSE/WATER 1 100ML.BAG IVPB SCH ×2 (17:35→19:34)
[2021-06-04 21:02] LABS: Glucose,Whole Blood 206 mg/dL (75-99)
[2021-06-04] MEDS: TAMSULOSIN 0.4 MG CAP.ER.24H PO SCH (22:09)
[2021-06-04] MEDS: INSULIN DETEMIR (LEVEMIR) 100 UNIT/ML SYR SQ SCH (22:09)
[2021-06-04] MEDS: METOPROLOL TARTRATE 25 MG TAB PO SCH (22:09)
[2021-06-04] MEDS: ATORVASTATIN 20 MG TAB PO SCH (22:09)
[2021-06-05 07:05] LABS: Glucose,Whole Blood 147 mg/dL (75-99)
[2021-06-05] MEDS: PANTOPRAZOLE 40 MG TABLET PO SCH (08:43)
[2021-06-05] MEDS: TAMSULOSIN 0.4 MG CAP.ER.24H PO SCH ×2 (08:43→17:09)
[2021-06-05] MEDS: dexAMETHasone 2 MG TAB PO SCH (08:44)
[2021-06-05] MEDS: METOPROLOL TARTRATE 25 MG TAB PO SCH ×2 (08:44→20:18)
--- NOTE | 2021-06-05 11:12 | US ---
EXAMINATION TYPE: US venous doppler duplex LE BI DATE OF EXAM: 06/05/2021 10:57 AM COMPARISON: NONE CLINICAL HISTORY: r/o dvt, multiple falls, unable to do CT. SIDE PERFORMED: Bilateral TECHNIQUE: The lower extremity deep venous system is examined utilizing real time linear array sonog maribel with graded compression, doppler sonography and color-flow sonography. VESSELS IMAGED: Common Femoral Vein Deep Femoral Vein Greater Saphenous Vein * Femoral Vein Popliteal Vein Small Saphenous Vein * Proximal Calf Veins (* superficial vessels) Right Leg: Chronic DVT noted prox FV and Prox POPv Left Leg: Negative for DVT IMPRESSION: No evidence for acute DVT. Chronic DVT right lower extremity as noted above.
[2021-06-05 11:22] LABS: Glucose,Whole Blood 172 mg/dL (75-99)
[2021-06-05] MEDS: INSULIN ASPART (NovoLOG) 100 UNIT/ML VIAL SQ SCH ×3 (12:05→20:27)
--- NOTE | 2021-06-05 14:52 | P.HPIM ---
History of Present Illness H&P Date: 06/05/21 This is an 86-year-old male patient of Dr. Larkin with past medical history of hypertension, hypertensive cardiovascular disease, hyperlipidemia, gastroesophageal reflux disease, diabetes mellitus type 2, obesity with obstructive sleep apnea and obesity hypoventilation syndrome, generalized osteoarthritis, chronic kidney disease stage IIIb, chronic DVT right lower extremity, patient had onset of symptoms 2 weeks ago with continued worsening of cough and shortness of breath. He has phlegm production. He has a little bit of chest pain. Patient complains of weakness and his had 3 falls at home. He presented to [facility] emergency center for evaluation found to be afebrile, heart rate 97, blood pressure 120/68, pulse ox 93%. EKG was a sinus rhythm with no acute ST changes. Chest x-ray was positive for Covid pneumonia. WBC 3.8, hemoglobin 12.4, platelet count 164. Sodium 133, BUN 21 creatinine 1.73. Blood sugar 237. ProBNP 981. Troponin 0.030. Lactic acid 1.0. Magnesium 1.5 and was replaced in the emergency center. Venous Doppler of the bilateral lower exam is negative for DVT. 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 [facility], started on Lovenox, dexamethasone, vitamin supplements and consult with pulmonary medicine. REVIEW OF SYSTEMS Constitutional: No fever, no chills, no night sweats. No weight change. Reports weakness, Reports fatigue. EENT: No headache. No blurred vision or double vision, no loss of vision. Reports loss of Hearing. No nasal drainage or congestion. No epistaxis. No sore throat. Lungs: Reports shortness of breath, reports cough, reports sputum production. No wheezing. Cardiovascular: No chest pain, no lower extremity edema. No palpitations. No paroxysmal nocturnal dyspnea. No orthopnea. No lightheadedness or dizziness. No syncopal episodes. Abdominal: Positive for abdominal pain. No nausea, vomiting. No diarrhea. No constipation. No bloody or tarry stools.. No loss of appetite. Genitourinary: No dysuria, increased frequency, urgency. No urinary retention. Musculoskeletal: No myalgias. Reports muscle weakness, Reports gait dysfunction, Reports falls. No back pain. No neck pain. Integumentary: No wounds, no lesions. No rash or pruritus. Neurologic: No aphasia. No facial droop. No change in mentation. No head injury. No headache. No paralysis. No paresthesia. Psychiatric: No depression. No anxiety. Endocrine: No abnormal blood sugars. SOCIAL HISTORY He is and lives at with his . He is a nonsmoker. No alcohol use. Uses walker for short distances and wheelchair for most of the activities. FAMILY HISTORY Mother at age 83 from complications from diabetes. Father at age 93 with history of pacemaker implantation at age 93. Patient has 1 brother that at age 77 with history of Alzheimer's disease and Parkinson's. Patient has 2 sisters that have had breast cancers. Patient has 2 sons and 5 daughters. One daughter from breast cancer diagnosed at age 27. PHYSICAL EXAMINATION Gen: This is an 86-year-old male. Patient is resting in bed and appears to be in no acute distress. He is currently on oxygen therapy at 1 L nasal cannula. HEENT: Head is atraumatic, normocephalic. Pupils equal, round. Sclerae is anicteric. NECK: Supple. No JVD. No lymphadenopathy. No thyromegaly. LUNGS: Diminished with bilateral crackles. No intercostal retractions. HEART: Regular rate and rhythm. No murmur. ABDOMEN: Soft. Bowel sounds are present. No masses. No tenderness. Umbilical h ernia EXTREMITIES: No pedal edema. No calf tenderness. Dorsalis pedis palpable bilaterally. NEUROLOGICAL: Patient is awake, alert and oriented x3. Cranial nerves 2 through 12 are grossly intact. ASSESSMENT AND PLAN 1. Acute hypoxic respiratory failure secondary to COVID-19 pneumonia. Patient started on dexamethasone, Lovenox, vitamin supplements, consult with pulmonary medicine, oxygen therapy. 2. Acute kidney injury on Chronic kidney disease stage IIIb. Patient is status post 1.5 L of IV fluid. Recheck kidney function in the morning. 3. Generalized wwhich has been chronic. PT and OT consults added. 4. Hypertension, hypertensive cardiovascular disease. Blood pressure is on the low side, continue lisinopril 2.5 mg daily with parameters, continue metoprolol 25 twice a day 5. Diabetes mellitus type 2 uncontrolled hyperglycemia. Continue NovoLog scale before meals and at bedtime, Levemir 35 units at bedtime. 6. Obesity with obstructive sleep apnea and obesity hypoventilation syndrome. Patient may have CPAP brought from home. 7. Gastroesophageal reflux disease and GI prophylaxis. Continue omeprazole or equivalent. 8. Benign prostatic hypertrophy. Continue Flomax 0.4 mg twice daily. 9. Hyperlipidemia. Continue atorvastatin 20 mg daily at bedtime 11. DVT prophylaxis. Lovenox 100 mg subcu daily. Disposition -Patient will be admitted to the hospital for a minimum of 2 night stay. Impression and plan of care have been directed as dictated by the signing physician. Augustina Washington nurse practitioner acting as scribe for signing physician. Past Medical History Past Medical History: Diabetes Mellitus, GERD/Reflux, Hyperlipidemia, Hypertension, Osteoarthritis (OA), Prostate Disorder, Sleep Apnea/CPAP/BIPAP Additional Past Medical History / Comment(s): diverticulosis, hemmorhoids, constopation, varicose veins, ulcers History of Any Multi-Drug Resistant Organisms: None Reported Past Surgical History: Hernia Repair, Joint Replacement, Orthopedic Surgery Additional Past Surgical History / Comment(s): rt knee arthroscopy, tressa total knee replacments, egd/colonoscopy, tressa cataracts-lens implants, rt ing hernia, umb hernia,ventral hernia, exp lap -repair of perforated ulcer Past Anesthesia/Blood Transfusion Reactions: No Reported Reaction Past Psychological History: Depression Additional Psychological History / Comment(s): Pt lives with his of 66 years ( rikki)and 1 son in a 2 story home. Pt and spouse stay on first level. They have 4 porch steps. 2 house cats. Medical equipment -cpap, 4 wheeled walker, ramp to home, no out side services. Pt does not drive, spouse drives and manages pt's meds and assists where needed. Pt was in [employer]. 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 2 cats in the home. Smoking Status: Never smoker Past Alcohol Use History: Rare Additional Past Alcohol Use History / Comment(s): Patient is a lifelong nonsmoker. He denies any medical marijuana, marijuana, street drug or alcohol use. 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 He served in the [employer] starting during the [place] War but was stationed in the [place]. There is one cat in the home. Past Drug Use History: None Reported - Past Family History Mother Family Medical History: Diabetes Mellitus Additional Family Medical History / Comment(s): Mother at age 83 from complications from diabetes. Father Family Medical History: Coronary Artery Disease (CAD) Additional Family Medical History / Comment(s): Father at age 93 and only history was pacemaker implantation at age 93. Brother(s) History Unknown: Yes Additional Family Medical History / Comment(s): Patient was 1 brother that at age 77 with history of Alzheimer's disease and Parkinson's. Sister(s) Family Medical History: Cancer Additional Family Medical History / Comment(s): 2 SISTERS HAD BREAST CANCER Son(s) Additional Family Medical History / Comment(s): Patient has 2 sons and 5 daughters. One daughter from breast cancer at age 27. Other children have no major medical problems. Daughter(s) Family Medical History: Cancer Additional Family Medical History / Comment(s): BREAST CANCER AT 27, SURVIVED FOR 5 YEARS. Medications and Allergies Home Medications Medication Instructions Recorded Confirmed Type Simvastatin [Zocor] 40 mg PO HS 11/26/16 06/04/21 History Tamsulosin [Flomax] 0.4 mg PO PC-BID 11/26/16 06/04/21 History lisinopriL [Zestril] 2.5 mg PO DAILY 11/26/16 06/04/21 History Omeprazole 20 mg PO DAILY 08/30/20 06/04/21 History glipiZIDE/METFORMIN HCL 2 tab PO BID 08/30/20 06/04/21 History [glipiZIDE/METFORMIN HCL 2.5-500 mg] Metoprolol Tartrate [Lopressor] 25 mg PO BID #60 tab 09/04/20 06/04/21 Rx Nitroglycerin Sl Tabs [Nitrostat] 0.4 mg SUBLINGUAL Q5M PRN tab 09/04/20 06/04/21 Rx Insulin Glargine,Hum.rec.anlog 35 unit SQ HS 03/04/21 06/04/21 History [Basaglar Kwikpen U-100] Ibuprofen [Motrin Ib] 200 mg PO Q8H PRN 06/04/21 06/04/21 History Allergies Allergy/AdvReac Type Severity Reaction Status Date / Time No Known Allergies Allergy Verified 06/04/21 17:13 Physical Exam Vitals: Vital Signs Temp Pulse Pulse Resp BP BP Pulse Ox 06/05/21 05:55 98.5 F 71 117/65 95 06/05/21 01:57 98.5 F 70 109/65 94 L 06/04/21 22:05 98.4 F 80 122/71 95 06/04/21 20:00 80 20 06/04/21 18:31 99.8 F H 80 20 117/66 98 06/04/21 17:00 77 18 126/48 95 06/04/21 16:00 76 18 101/73 96 06/04/21 15:03 89 L 06/04/21 15:00 22 06/04/21 14:57 87 16 112/67 97 06/04/21 14:45 94 L 06/04/21 14:40 87 16 112/67 88 L 06/04/21 14:01 98.5 F 97 18 120/68 93 L Intake and Output 06/04/21 06/05/21 06/05/21 22:59 06:59 14:59 Intake Total 200 Balance 200 Intake: Oral 200 Other: Voiding Method Urinal Urinal # Voids 2 # Bowel Movements 1 Weight 124.738 kg Results CBC & Chem 7: 06/04/21 14:34 06/04/21 14:34 Labs: Abnormal Lab Results - Last 24 Hours (Table) 06/04/21 06/04/21 06/04/21 Range/Units 14:34 14:34 14:34 RBC 3.90 L (4.30-5.90) m/uL Hgb 12.4 L (13.0-17.5) gm/dL Hct 37.2 L (39.0-53.0) % APTT 30.1 H (22.0-30.0) sec Sodium 133 L (137-145) mmol/L BUN 21 H (9-20) mg/dL Creatinine 1.73 H (0.66-1.25) mg/dL Glucose 237 H (74-99) mg/dL POC Glucose (mg/dL) (75-99) mg/dL Calcium 8.2 L (8.4-10.2) mg/dL Magnesium 1.5 L (1.6-2.3) mg/dL AST 65 H (17-59) U/L ALT 55 H (4-49) U/L Alkaline Phosphatase 132 H (38-126) U/L Total Protein 6.2 L (6.3-8.2) g/dL Albumin 3.3 L (3.5-5.0) g/dL 06/04/21 06/05/21 Range/Units 20:53 07:04 RBC (4.30-5.90) m/uL Hgb (13.0-17.5) gm/dL Hct (39.0-53.0) % APTT (22.0-30.0) sec Sodium (137-145) mmol/L BUN (9-20) mg/dL Creatinine (0.66-1.25) mg/dL Glucose (74-99) mg/dL POC Glucose (mg/dL) 206 H 147 H (75-99) mg/dL Calcium (8.4-10.2) mg/dL Magnesium (1.6-2.3) mg/dL AST (17-59) U/L ALT (4-49) U/L Alkaline Phosphatase (38-126) U/L Total Protein (6.3-8.2) g/dL Albumin (3.5-5.0) g/dL
--- NOTE | 2021-06-05 15:30 | P.CNPUL ---
History of Present Illness Consult date: 06/05/21 Requesting physician: Augustina Washington Reason for consult: dyspnea, cough, pneumonia, abnormal CXR/CT Chief complaint: Nausea, vomiting, dyspnea History of present illness: A 86-year-old white male patient with past medical history of hypertension, hyperlipidemia, diabetes mellitus type 2, obesity, obstructive sleep apnea, generalized osteoarthritis, chronic kidney disease stage IIIB, chronic DVT in the right lower extremity will present to the emergency department on 06/04/2021 for evaluation of worsening dyspnea. Patient complains of weakness and patient had 3 falls at home, he states his been sick for about 2 weeks, has been nauseous, vomiting, he has been freezing and then getting hot and sweating. His symptoms progressed to worsening dyspnea, cough. He is not vaccinated against COVID-19. Patient tested positive for COVID-19 on outpatient basis on 06/03/2021. The emergency department she was found to be hypoxic and satting 88% on room air. Chest x-ray showed cardiomegaly, retrocardiac infiltrate and some mild interstitial infiltrate at the right base. His labs show white blood cell count of 3.8, hemoglobin of 12.4, d-dimer today 0.9, sodium is 133, potassium is 3.8, CO2 is 24, BUN is 21, creatinine is 1.73, glucose is 237, lactic acid is 1.0, calcium is 8.2, magnesium is 1.5, AST 65, ALT is 55, alkaline phosphatase is 132, proBNP is 981, troponin was 0.031. Patient was started on Decadron, he is on Lovenox 100 mg daily, lower extremity Dopplers showed chronic DVT in the right lower extremity, negative DVT in the left lower extremity. EKgG shows normal sinus rhythm. Currently only on 1 L of oxygen his pulse ox is 95%. Review of Systems All systems: negative Constitutional: Denies chills, Denies fever Eyes: denies blurred vision, denies pain Ears, nose, mouth and throat: Denies headache, Denies sore throat Cardiovascular: Denies chest pain, Denies shortness of breath Respiratory: Reports dyspnea, Denies cough Gastrointestinal: Denies abdominal pain, Denies diarrhea, Denies nausea, Denies vomiting Musculoskeletal: Denies myalgias Integumentary: Denies pruritus, Denies rash Neurological: Denies numbness, Denies weakness Psychiatric: Denies anxiety, Denies depression Endocrine: Denies fatigue, Denies weight change Past Medical History Past Medical History: Diabetes Mellitus, GERD/Reflux, Hyperlipidemia, Hypertension, Osteoarthritis (OA), Prostate Disorder, Sleep Apnea/CPAP/BIPAP Additional Past Medical History / Comment(s): diverticulosis, hemmorhoids, constopation, varicose veins, ulcers History of Any Multi-Drug Resistant Organisms: None Reported Past Surgical History: Hernia Repair, Joint Replacement, Orthopedic Surgery Additional Past Surgical History / Comment(s): rt knee arthroscopy, tressa total knee replacments, egd/colonoscopy, tressa cataracts-lens implants, rt ing hernia, umb hernia,ventral hernia, exp lap -repair of perforated ulcer Past Anesthesia/Blood Transfusion Reactions: No Reported Reaction Past Psychological History: Depression Additional Psychological History / Comment(s): Pt lives with his of 66 years ( rikki)and 1 son in a 2 story home. Pt and spouse stay on first level. They have 4 porch steps. 2 house cats. Medical equipment -cpap, 4 wheeled walker, ramp to home, no out side services. Pt does not drive, spouse drives and manages pt's meds and assists where needed. Pt was in [employer]. 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 2 cats in the home. Smoking Status: Never smoker Past Alcohol Use History: Rare Additional Past Alcohol Use History / Comment(s): Patient is a lifelong non smoker. He denies any medical marijuana, marijuana, street drug or alcohol use. 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 He served in the [employer] starting during the [place] War but was stationed in the [place]. There is one cat in the home. Past Drug Use History: None Reported - Past Family History Mother Family Medical History: Diabetes Mellitus Additional Family Medical History / Comment(s): Mother at age 83 from complications from diabetes. Father Family Medical History: Coronary Artery Disease (CAD) Additional Family Medical History / Comment(s): Father at age 93 and only history was pacemaker implantation at age 93. Brother(s) History Unknown: Yes Additional Family Medical History / Comment(s): Patient was 1 brother that at age 77 with history of Alzheimer's disease and Parkinson's. Sister(s) Family Medical History: Cancer Additional Family Medical History / Comment(s): 2 SISTERS HAD BREAST CANCER Son(s) Additional Family Medical History / Comment(s): Patient has 2 sons and 5 daughters. One daughter from breast cancer at age 27. Other children have no major medical problems. Daughter(s) Family Medical History: Cancer Additional Family Medical History / Comment(s): BREAST CANCER AT 27, SURVIVED FOR 5 YEARS. Medications and Allergies Home Medications Medication Instructions Recorded Confirmed Type Simvastatin [Zocor] 40 mg PO HS 11/26/16 06/04/21 History Tamsulosin [Flomax] 0.4 mg PO PC-BID 11/26/16 06/04/21 History lisinopriL [Zestril] 2.5 mg PO DAILY 11/26/16 06/04/21 History Omeprazole 20 mg PO DAILY 08/30/20 06/04/21 History glipiZIDE/METFORMIN HCL 2 tab PO BID 08/30/20 06/04/21 History [glipiZIDE/METFORMIN HCL 2.5-500 mg] Metoprolol Tartrate [Lopressor] 25 mg PO BID #60 tab 09/04/20 06/04/21 Rx Nitroglycerin Sl Tabs [Nitrostat] 0.4 mg SUBLINGUAL Q5M PRN tab 09/04/20 06/04/21 Rx Insulin Glargine,Hum.rec.anlog 35 unit SQ HS 03/04/21 06/04/21 History [Basaglar Kwikpen U-100] Ibuprofen [Motrin Ib] 200 mg PO Q8H PRN 06/04/21 06/04/21 History Allergies Allergy/AdvReac Type Severity Reaction Status Date / Time No Known Allergies Allergy Verified 06/04/21 17:13 Physical Exam Vitals: Vital Signs Temp Pulse Pulse Resp BP BP Pulse Ox 06/05/21 14:00 98.8 F 70 16 129/72 95 06/05/21 12:48 96 06/05/21 10:00 99.0 F 88 18 113/66 95 06/05/21 05:55 98.5 F 71 117/65 95 06/05/21 01:57 98.5 F 70 109/65 94 L 06/04/21 22:05 98.4 F 80 122/71 95 06/04/21 20:00 80 20 06/04/21 18:31 99.8 F H 80 20 117/66 98 06/04/21 17:00 77 18 126/48 95 06/04/21 16:00 76 18 101/73 96 Intake and Output 06/05/21 06/05/21 06/05/21 06:59 14:59 22:59 Other: Voiding Method Urinal # Voids 2 # Bowel Movements 1 GENERAL EXAM: Alert, very pleasant, 86-year-old white male, resting comfortably in bed, currently on 1 L of oxygen with a pulse ox of 95% comfortable in no apparent distress. HEAD: Normocephalic/atraumatic. EYES: Normal reaction of pupils, equal size. Conjunctiva pink, sclera white. NOSE: Clear with pink turbinates. THROAT: No erythema or exudates. NECK: No masses, no JVD, no thyroid enlargement, no adenopathy. CHEST: No chest wall deformity. Symmetrical expansion. LUNGS: Equal air entry with bibasilar crackles CVS: Regular rate and rhythm, normal S1 and S2, no gallops, no murmurs, no rubs ABDOMEN: Soft, nontender. No hepatosplenomegaly, normal bowel sounds, no guarding or rigidity. EXTREMITIES: No clubbing, no edema, no cyanosis, 2+ pulses and upper and lower extremities. MUSCULOSKELETAL: Muscle strength and tone normal. SPINE: No scoliosis or deformity SKIN: No rashes CENTRAL NERVOUS SYSTEM: Alert and oriented -3. No focal deficits, tone is normal in all 4 extremities. PSYCHIATRIC: Alert and oriented -3. Appropriate affect. Intact judgment and insight. Results - Laboratory Findings CBC and BMP: 06/04/21 14:34 06/04/21 14:34 PT/INR, D-dimer PT 10.4 sec (9.0-12.0) 06/04/21 14:34 INR 1.0 (<1.2) 06/04/21 14:34 D-Dimer 0.99 mg/L FEU (<0.60) H 06/05/21 10:23 Abnormal lab findings: Abnormal Labs 06/04/21 06/04/21 06/04/21 14:34 14:34 14:34 RBC 3.90 L Hgb 12.4 L Hct 37.2 L APTT 30.1 H D-Dimer Sodium 133 L BUN 21 H Creatinine 1.73 H Glucose 237 H POC Glucose (mg/dL) Calcium 8.2 L Magnesium 1.5 L AST 65 H ALT 55 H Alkaline Phosphatase 132 H Total Protein 6.2 L Albumin 3.3 L 06/04/21 06/05/21 06/05/21 20:53 07:04 10:23 RBC Hgb Hct APTT D-Dimer 0.99 H Sodium BUN Creatinine Glucose POC Glucose (mg/dL) 206 H 147 H Calcium Magnesium AST ALT Alkaline Phosphatase Total Protein Albumin 06/05/21 11:20 RBC Hgb Hct APTT D-Dimer Sodium BUN Creatinine Glucose POC Glucose (mg/dL) 172 H Calcium Magnesium AST ALT Alkaline Phosphatase Total Protein Albumin - Diagnostic Findings Chest x-ray: report reviewed Additional studies: Lower extremity Dopplers reviewed, EKG reviewed Assessment and Plan Plan: Assessment: #1. Acute hypoxic respiratory failure, related to acute COVID-19 pneumonia, onset of symptoms was 2 weeks prior to presentation, patient is non-vaccinated against COVID 19, outside the window for Remdesivir, and will be treated supportively with a combination of anticoagulation, Decadron and multivitamins #2. Elevated d-dimer, lower extremity Doppler showed a chronic DVT in the right lower extremity, she can continue on prophylactic Lovenox #3. Increased LFTs, related to viral pneumonia #4. Hypertension #5. Hyperlipidemia #6. Obstructive sleep apnea #7. Diabetes mellitus type 2 #8. Obesity with obesity hypoventilation syndrome #9. Chronic kidney disease stage IIIB #10. History of right lower extremity DVT not on any chronic anticoagulation Plan: Continue Decadron Continue prophylactic Lovenox Lower extremity Dopplers only showed chronic DVT in the right lower extremity Continue supportive treatment Patient is not a candidate for Remdesivir We'll monitor for worsening dyspnea or hypoxia We'll follow inflammatory markers I performed a history & physical examination of the patient and discussed their management with my nurse practitioner, Jennifer Cespedes. I reviewed the nurse practitioner's note and agree with the documented findings and plan of care. Lung sounds are positive for diminished breath sounds throughout the lung vázquez. The findings and the impression was discussed with the patient. I attest to the documentation by the nurse practitioner. Time with Patient: Greater than 30
[2021-06-05 16:30] LABS: Glucose,Whole Blood 233 mg/dL (75-99)
[2021-06-05] MEDS: ATORVASTATIN 20 MG TAB PO SCH (20:18)
[2021-06-05 20:22] LABS: Glucose,Whole Blood 274 mg/dL (75-99)
[2021-06-05] MEDS: INSULIN DETEMIR (LEVEMIR) 100 UNIT/ML SYR SQ SCH (21:00)
[2021-06-06 06:58] LABS: Glucose,Whole Blood 204 mg/dL (75-99)
[2021-06-06] MEDS ORDERED: AZITHROMYCIN 500 MG in SODIUM CHLORIDE 0.9% 250 ML IVPB STA (07:01)
[2021-06-06] MEDS: CHOLECALCIFEROL 25 MCG (1000 IU) TABLET PO SCH (07:32)
[2021-06-06] MEDS: ZINC SULFATE 220 MG CAP PO SCH (07:32)
[2021-06-06] MEDS: METOPROLOL TARTRATE 25 MG TAB PO SCH ×2 (07:33→19:52)
[2021-06-06] MEDS: dexAMETHasone 2 MG TAB PO SCH (07:33)
[2021-06-06] MEDS: TAMSULOSIN 0.4 MG CAP.ER.24H PO SCH ×2 (07:33→17:04)
[2021-06-06] MEDS: INSULIN ASPART (NovoLOG) 100 UNIT/ML VIAL SQ SCH ×4 (07:33→21:37)
[2021-06-06] MEDS: ASCORBIC ACID 500 MG TAB PO SCH (07:33)
[2021-06-06] MEDS: PANTOPRAZOLE 40 MG TABLET PO SCH (07:33)
[2021-06-06 08:20] LABS: Basophils % (A) 0 %; Eosinophils % (A) 0 %; HCT 39.7 % (39.0-53.0); HGB 12.8 gm/dL (13.0-17.5); Lymphocytes % (A) 28 %; MCH 31.7 pg (25.0-35.0); MCHC 32.2 g/dL (31.0-37.0); MCV 98.6 fL (80.0-100.0); Mean Platelet Volume 7.3; Monocytes # (A) 0.2 k/uL (0-1.0); Monocytes % (A) 6 %; Neutrophils # (A) 2.3 k/uL (1.3-7.7); Neutrophils % (A) 62 %; Platelet Count 193 k/uL (150-450); RBC 4.03 m/uL (4.30-5.90); RDW 13.4 % (11.5-15.5); WBC 3.8 k/uL (3.8-10.6)
[2021-06-06 08:47] LABS: ALT 55 U/L (4-49); AST 74 U/L (17-59); African American GFR (CKD) 59 (>60 ml/min/1.73 sqM); Albumin 3.2 g/dL (3.5-5.0); Alkaline Phosphatase 183 U/L (38-126); Anion Gap 7 mmol/L; Blood Urea Nitrogen 20 mg/dL (9-20); Calcium 8.4 mg/dL (8.4-10.2); Carbon Dioxide 28 mmol/L (22-30); Chloride 103 mmol/L (98-107); Globulin 3.1 g/dL; Glucose 214 mg/dL (74-99); Magnesium 2.1 mg/dL (1.6-2.3); Non-African American GFR(CKD) 51 (>60 ml/min/1.73 sqM); Potassium 5.2 mmol/L (3.5-5.1); Sodium 138 mmol/L (137-145); Total Bilirubin 0.5 mg/dL (0.2-1.3); Total Protein 6.3 g/dL (6.3-8.2)
[2021-06-06] MEDS ORDERED: ENOXAPARIN 100 MG/ML SYRINGE SQ SCH (09:00)
[2021-06-06 11:57] LABS: Glucose,Whole Blood 269 mg/dL (75-99)
--- NOTE | 2021-06-06 16:08 | P.PN ---
Subjective Progress Note Date: 06/06/21 This is an 86-year-old male patient of Dr. Larkin with past medical history of hypertension, hypertensive cardiovascular disease, hyperlipidemia, gastroesophageal reflux disease, diabetes mellitus type 2, obesity with obstructive sleep apnea and obesity hypoventilation syndrome, generalized osteo arthritis, chronic kidney disease stage IIIb, chronic DVT right lower extremity, patient had onset of symptoms 2 weeks ago with continued worsening of cough and shortness of breath. He has phlegm production. He has a little bit of chest pain. Patient complains of weakness and his had 3 falls at home. He presented to [facility] emergency center for evaluation found to be afebrile, heart rate 97, blood pressure 120/68, pulse ox 93%. EKG was a sinus rhythm with no acute ST changes. Chest x-ray was positive for Covid pneumonia. WBC 3.8, hemoglobin 12.4, platelet count 164. Sodium 133, BUN 21 creatinine 1.73. Blood sugar 237. ProBNP 981. Troponin 0.030. Lactic acid 1.0. Magnesium 1.5 and was replaced in the emergency center. Venous Doppler of the bilateral lower exam is negative for DVT. 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 [facility], started on Lovenox, dexamethasone, vitamin supplements and consult with pulmonary medicine. patient examined bedside sitting comfortably in bed. Is currently saturating at 93% on room air otherwise vitals are stable afebrile pulse 67 respiratory 8. 19 blood pressure 116/66 magnesium has improved to 2.1 liver enzymes continues to remain elevated proBNP is normal. Patient has detailed workup of liver enzymes in the previous admission and was seen by Dr. Purcell. Fat ty hepatic infiltration was noted on hepatic ultrasound.. Continue patient on Decadron, Lovenox and supplementation. Venous Doppler suggestive of chronic DVT involving the right leg. Patient has no documentation of previous DVT and would benefit from Eliquis on discharge. will increase Lovenox to 100 subcu twice a day. His pro calcitonin was elevated he should patient on Rocephin and azithro mycin for possible overlying for bacterial infection REVIEW OF SYSTEMS Constitutional: No fever, no chills, no night sweats. No weight change. Reports weakness, Reports fatigue. EENT: No headache. No blurred vision or double vision, no loss of vision. Reports loss of Hearing. No nasal drainage or congestion. No epistaxis. No sore throat. Lungs: Reports shortness of breath, reports cough, reports sputum production. No wheezing. Cardiovascular: No chest pain, no lower extremity edema. No palpitations. No paroxysmal nocturnal dyspnea. No orthopnea. No lightheadedness or dizziness. No syncopal episodes. Abdominal: Positive for abdominal pain. No nausea, vomiting. No diarrhea. No constipation. No bloody or tarry stools.. No loss of appetite. Genitourinary: No dysuria, increased frequency, urgency. No urinary retention. Musculoskeletal: No myalgias. Reports muscle weakness, Reports gait dysfunction, Reports falls. No back pain. No neck pain. Integumentary: No wounds, no lesions. No rash or pruritus. Neurologic: No aphasia. No facial droop. No change in mentation. No head injury. No headache. No paralysis. No paresthesia. Psychiatric: No depression. No anxiety. Endocrine: No abnormal blood sugars. PHYSICAL EXAMINATION Gen: This is an 86-year-old male. Patient is resting in bed and appears to be in no acute distress. He is currently on oxygen therapy at 1 L nasal cannula. HEENT: Head is atraumatic, normocephalic. Pupils equal, round. Sclerae is anicteric. NECK: Supple. No JVD. No lymphadenopathy. No thyromegaly. LUNGS: Diminished with bilateral crackles. No intercostal retractions. HEART: Regular rate and rhythm. No murmur. ABDOMEN: Soft. Bowel sounds are present. No masses. No tenderness. Umbilical hernia EXTREMITIES: No pedal edema. No calf tenderness. Dorsalis pedis palpable bilaterally. NEUROLOGICAL: Patient is awake, alert and oriented x3. Cranial nerves 2 through 12 are grossly intact. ASSESSMENT AND PLAN 1. Acute hypoxic respiratory failure secondary to COVID-19 pneumonia with bacterial coinfection his pro calcitonin is elevated. Rocephin and azithromycin initiated. Patient started on dexamethasone, Lovenox, vitamin supplements, consult with pulmonary medicine, oxygen therapy. 2. Acute kidney injury secondary to ATN on Chronic kidney disease stage IIIb. Patient is status post 1.5 L of IV fluid. Recheck kidney function in the morning. 3. Generalized weakness has been chronic. PT and OT consults added. 4. Chronic DVT of right leg. Eliquis increased to 100 subcu twice a day with plan to discharge patient on Eliquis 5. Hypertension, hypertensive cardiovascular disease. Blood pressure is on the low side, continue lisinopril 2.5 mg daily with parameters, continue metoprolol 25 twice a day 6. Diabetes mellitus type 2 uncontrolled hyperglycemia. Continue NovoLog scale before meals and at bedtime, Levemir 35 units at bedtime. 7. Obesity with obstructive sleep apnea and obesity hypoventilation syndrome. Patient may have CPAP brought from home. 8. Gastroesophageal reflux disease and GI prophylaxis. Continue omeprazole or equivalent. 9. Benign prostatic hypertrophy. Continue Flomax 0.4 mg twice daily. 10. Hyperlipidemia. Continue atorvastatin 20 mg daily at bedtime 11. DVT prophylaxis. Lovenox 100 mg subcu BID Objective - Vital Signs Vital signs: Vital Signs Temp 97.6 F 06/06/21 05:18 Pulse 58 L 06/06/21 05:18 Resp 17 06/06/21 01:41 BP 123/76 06/06/21 05:18 Pulse Ox 93 L 06/06/21 05:18 Intake & Output 06/05/21 06/06/21 06/06/21 18:59 06:59 18:59 Intake Total 1080 100 Balance 1080 100 Intake: Oral 1080 100 Other: Voiding Method Urinal # Voids 3 2 - Labs CBC & Chem 7: 06/06/21 07:53 06/06/21 07:53 Labs: Abnormal Lab Results - Last 24 Hours (Table) 06/05/21 06/05/21 06/05/21 Range/Units 07:04 10:23 10:23 D-Dimer 0.99 H (<0.60) mg/L FEU POC Glucose (mg/dL) 147 H (75-99) mg/dL Ferritin 605.0 H (22.0-322.0) ng/mL Procalcitonin (0.02-0.09) ng/mL 06/05/21 06/05/21 06/05/21 Range/Units 10:23 11:20 16:28 D-Dimer (<0.60) mg/L FEU POC Glucose (mg/dL) 172 H 233 H (75-99) mg/dL Ferritin (22.0-322.0) ng/mL Procalcitonin 0.32 H (0.02-0.09) ng/mL 06/05/21 06/06/21 Range/Units 20:21 06:54 D-Dimer (<0.60) mg/L FEU POC Glucose (mg/dL) 274 H 204 H (75-99) mg/dL Ferritin (22.0-322.0) ng/mL Procalcitonin (0.02-0.09) ng/mL
--- NOTE | 2021-06-06 16:31 | P.PN ---
Subjective Progress Note Date: 06/06/21 Principal diagnosis: COVID-19 pneumonia A 86-year-old white male patient with past medical history of hypertension, hyperlipidemia, diabetes mellitus type 2, obesity, obstructive sleep apnea, generalized osteoarthritis, chronic kidney disease stage IIIB, chronic DVT in the right lower extremity will present to the emergency department on 06/04/2021 for evaluation of worsening dyspnea. Patient complains of weakness and patient had 3 falls at home, he states his been sick for about 2 weeks, has been nauseous, vomiting, he has been freezing and then getting hot and sweating. His symptoms progressed to worsening dyspnea, cough. He is not vaccinated against COVID-19. Patient tested positive for COVID-19 on outpatient basis on 06/03/2021. The emergency department she was found to be hypoxic and satting 88% on room air. Chest x-ray showed cardiomegaly, retrocardiac infiltrate and some mild interstitial infiltrate at the right base. His labs show white blood cell count of 3.8, hemoglobin of 12.4, d-dimer today 0.9, sodium is 133, potassium is 3.8, CO2 is 24, BUN is 21, creatinine is 1.73, glucose is 237, lactic acid is 1.0, calcium is 8.2, magnesium is 1.5, AST 65, ALT is 55, alkaline phosphatase is 132, proBNP is 981, troponin was 0.031. Patient was started on Decadron, he is on Lovenox 100 mg daily, lower extremity Dopplers showed chronic DVT in the right lower extremity, negative DVT in the left lower extremity. EKgG shows normal sinus rhythm. Currently only on 1 L of oxygen his pulse ox is 95%. The patient is seen today 06/06/2021 in follow-up on the regular medical floor. He is currently resting comfortably in bed. Awake and alert in no acute distress. He is maintaining O2 saturations in the 90s and 2 L/m per nasal cannula. Dopplers of lower extremities revealed chronic DVT in the right leg. 0.9 normal saline at 20 ML's per hour. White count 3.8. Hemoglobin 12.8. Sodium 138. Potassium 5.2. Creatinine 1.26. AST 74. ALT 55. He is continued on Decadron, Lovenox, vitamin supplements. Antibiotics in the form of ceftriaxone and azithromycin. Objective - Vital Signs Vital signs: Vital Signs Temp 97.8 F 06/06/21 14:00 Pulse 67 06/06/21 14:00 Resp 19 06/06/21 14:00 BP 116/66 06/06/21 14:00 Pulse Ox 94 L 06/06/21 14:00 Intake & Output 06/05/21 06/06/21 06/06/21 18:59 06:59 18:59 Intake Total 1080 100 Balance 1080 100 Intake: Oral 1080 100 Other: Voiding Method Urinal Urinal # Voids 3 2 1 - Exam GENERAL EXAM: Alert, very pleasant, 86-year-old male patient, resting comfortably in bed, currently on 2 L of oxygen, comfortable in no apparent distress. HEAD: Normocephalic/atraumatic. EYES: Normal reaction of pupils, equal size. Conjunctiva pink, sclera white. NOSE: Clear with pink turbinates. THROAT: No erythema or exudates. NECK: No masses, no JVD, no thyroid enlargement, no adenopathy. CHEST: No chest wall deformity. Symmetrical expansion. LUNGS: Equal air entry with bibasilar crackles CVS: Regular rate and rhythm, normal S1 and S2, no gallops, no murmurs, no rubs ABDOMEN: Soft, nontender. No hepatosplenomegaly, normal bowel sounds, no guarding or rigidity. EXTREMITIES: No clubbing, no edema, no cyanosis, 2+ pulses and upper and lower extremities. MUSCULOSKELETAL: Muscle strength and tone normal. SPINE: No scoliosis or deformity SKIN: No rashes CENTRAL NERVOUS SYSTEM: No focal deficits, tone is normal in all 4 extremities. PSYCHIATRIC: Alert and oriented -3. Appropriate affect. Intact judgment and insight. - Labs CBC & Chem 7: 06/06/21 07:53 06/06/21 07:53 Labs: Abnormal Lab Results - Last 24 Hours (Table) 06/05/21 06/05/21 06/05/21 Range/Units 10:23 10:23 16:28 RBC (4.30-5.90) m/uL Hgb (13.0-17.5) gm/dL Potassium (3.5-5.1) mmol/L Creatinine (0.66-1.25) mg/dL Glucose (74-99) mg/dL POC Glucose (mg/dL) 233 H (75-99) mg/dL Hemoglobin A1c (4.0-6.0) % Ferritin 605.0 H (22.0-322.0) ng/mL AST (17-59) U/L ALT (4-49) U/L Alkaline Phosphatase (38-126) U/L Albumin (3.5-5.0) g/dL Procalcitonin 0.32 H (0.02-0.09) ng/mL 06/05/21 06/06/21 06/06/21 Range/Units 20:21 06:54 07:53 RBC (4.30-5.90) m/uL Hgb (13.0-17.5) gm/dL Potassium (3.5-5.1) mmol/L Creatinine (0.66-1.25) mg/dL Glucose (74-99) mg/dL POC Glucose (mg/dL) 274 H 204 H (75-99) mg/dL Hemoglobin A1c 6.8 H (4.0-6.0) % Ferritin (22.0-322.0) ng/mL AST (17-59) U/L ALT (4-49) U/L Alkaline Phosphatase (38-126) U/L Albumin (3.5-5.0) g/dL Procalcitonin (0.02-0.09) ng/mL 06/06/21 06/06/21 06/06/21 Range/Units 07:53 07:53 11:56 RBC 4.03 L (4.30-5.90) m/uL Hgb 12.8 L (13.0-17.5) gm/dL Potassium 5.2 H (3.5-5.1) mmol/L Creatinine 1.26 H (0.66-1.25) mg/dL Glucose 214 H (74-99) mg/dL POC Glucose (mg/dL) 269 H (75-99) mg/dL Hemoglobin A1c (4.0-6.0) % Ferritin (22.0-322.0) ng/mL AST 74 H (17-59) U/L ALT 55 H (4-49) U/L Alkaline Phosphatase 183 H (38-126) U/L Albumin 3.2 L (3.5-5.0) g/dL Procalcitonin (0.02-0.09) ng/mL Assessment and Plan Assessment: 1 Acute hypoxic respiratory failure, related to acute COVID-19 pneumonia, onset of symptoms was 2 weeks prior to presentation, patient is non-vaccinated against COVID 19, outside the window for Remdesivir, and will be treated supportively with a combination of anticoagulation, Decadron and multivitamins 2 Elevated d-dimer, lower extremity Doppler showed a 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 Pratt Currently stable from the pulmonary standpoint On 2 L nasal cannula Continue Decadron, Lovenox, vitamin supplements Remains on ceftriaxone and azithromycin Pro calcitonin 0.32 We will continue to follow I, the cosigning physician, performed a history & physical examination of the patient. Lungs sounds with bibasilar crackles. Maintaining good O2 saturations in the 90s on 2 L/m per nasal cannula. I discussed the assessment and plan of care with my nurse practitioner, Renetta Brown. I attest to the above note as dictated by her.
[2021-06-06 16:39] LABS: Glucose,Whole Blood 310 mg/dL (75-99)
[2021-06-06] MEDS: ATORVASTATIN 20 MG TAB PO SCH (19:52)
[2021-06-06] MEDS ORDERED: INSULIN DETEMIR (LEVEMIR) 100 UNIT/ML SYR SQ SCH (21:00)
[2021-06-06 21:30] LABS: Glucose,Whole Blood 175 mg/dL (75-99)
[2021-06-06] MEDS: ENOXAPARIN 100 MG/ML SYRINGE SQ SCH (21:37)
[2021-06-07 07:21] LABS: Glucose,Whole Blood 168 mg/dL (75-99)
[2021-06-07] MEDS: INSULIN ASPART (NovoLOG) 100 UNIT/ML VIAL SQ SCH ×7 (07:59→21:44)
[2021-06-07] MEDS: ASCORBIC ACID 500 MG TAB PO SCH (08:00)
[2021-06-07] MEDS: CHOLECALCIFEROL 25 MCG (1000 IU) TABLET PO SCH (08:00)
[2021-06-07] MEDS: ZINC SULFATE 220 MG CAP PO SCH (08:00)
[2021-06-07] MEDS: dexAMETHasone 2 MG TAB PO SCH (08:00)
[2021-06-07] MEDS: TAMSULOSIN 0.4 MG CAP.ER.24H PO SCH ×2 (08:00→16:49)
[2021-06-07] MEDS: ENOXAPARIN 100 MG/ML SYRINGE SQ SCH ×2 (08:00→21:45)
[2021-06-07] MEDS: METOPROLOL TARTRATE 25 MG TAB PO SCH ×2 (08:00→21:45)
[2021-06-07] MEDS: PANTOPRAZOLE 40 MG TABLET PO SCH (08:00)
[2021-06-07 09:27] LABS: C Reactive Protein 1.7 mg/dL (<1.0)
[2021-06-07] MEDS: AZITHROMYCIN 1,200 MG/30 ML BOTTLE PO SCH (10:56)
[2021-06-07 12:02] LABS: Glucose,Whole Blood 195 mg/dL (75-99)
--- NOTE | 2021-06-07 15:26 | P.PN ---
Subjective Progress Note Date: 06/07/21 Principal diagnosis: COVID-19 pneumonia A 86-year-old white male patient with past medical history of hypertension, hyperlipidemia, diabetes mellitus type 2, obesity, obstructive sleep apnea, generalized osteoarthritis, chronic kidney disease stage IIIB, chronic DVT in the right lower extremity will present to the emergency department on 06/04/2021 for evaluation of worsening dyspnea. Patient complains of weakness and patient had 3 falls at home, he states his been sick for about 2 weeks, has been nauseous, vomiting, he has been freezing and then getting hot and sweating. His symptoms progressed to worsening dyspnea, cough. He is not vaccinated against COVID-19. Patient tested positive for COVID-19 on outpatient basis on 06/03/2021. The emergency department she was found to be hypoxic and satting 88% on room air. Chest x-ray showed cardiomegaly, retrocardiac infiltrate and some mild interstitial infiltrate at the right base. His labs show white blood cell count of 3.8, hemoglobin of 12.4, d-dimer today 0.9, sodium is 133, potassium is 3.8, CO2 is 24, BUN is 21, creatinine is 1.73, glucose is 237, lactic acid is 1.0, calcium is 8.2, magnesium is 1.5, AST 65, ALT is 55, alkaline phosphatase is 132, proBNP is 981, troponin was 0.031. Patient was started on Decadron, he is on Lovenox 100 mg daily, lower extremity Dopplers showed chronic DVT in the right lower extremity, negative DVT in the left lower extremity. EKgG shows normal sinus rhythm. Currently only on 1 L of oxygen his pulse ox is 95%. The patient is seen today 06/06/2021 in follow-up on the regular medical floor. He is currently resting comfortably in bed. Awake and alert in no acute distress. He is maintaining O2 saturations in the 90s and 2 L/m per nasal cannula. Dopplers of lower extremities revealed chronic DVT in the right leg. 0.9 normal saline at 20 ML's per hour. White count 3.8. Hemoglobin 12.8. Sodium 138. Potassium 5.2. Creatinine 1.26. AST 74. ALT 55. He is continued on Decadron, Lovenox, vitamin supplements. Antibiotics in the form of ceftriaxone and azithromycin. The patient is seen today 06/07/2021 in follow-up on the regular medical floor. He is currently resting comfortably in bed. Awake and alert in no acute distress. Feeling about the same today as compared to yesterday. He continues to maintain O2 saturations in the 90s on 2 L/m per nasal cannula. She's been afebrile. Hemodynamically stable. D-dimer 0.82. LDH 838. C-reactive protein 1.7. Glucose 195. He remains on antibiotics in the form of ceftriaxone and azithromycin. Continued on Lovenox, Decadron, vitamin supplements. Objective - Vital Signs Vital signs: Vital Signs Temp 97.4 F L 06/07/21 13:48 Pulse 68 06/07/21 13:48 Resp 17 06/07/21 13:48 BP 127/64 06/07/21 13:48 Pulse Ox 95 06/07/21 13:48 Intake & Output 06/06/21 06/07/21 06/07/21 18:59 06:59 18:59 Other: Voiding Method Urinal Urinal Urinal # Voids 1 2 - Exam GENERAL EXAM: Alert, 86-year-old male patient, resting comfortably in bed, currently on 2 L of oxygen HEAD: Normocephalic/atraumatic. EYES: Normal reaction of pupils, equal size. Conjunctiva pink, sclera white. NOSE: Clear with pink turbinates. THROAT: No erythema or exudates. NECK: No masses, no JVD, no thyroid enlargement, no adenopathy. CHEST: No chest wall deformity. Symmetrical expansion. LUNGS: Equal air entry with bibasilar crackles CVS: Regular rate and rhythm, normal S1 and S2, no gallops, no murmurs, no rubs ABDOMEN: Soft, nontender. No hepatosplenomegaly, normal bowel sounds, no guarding or rigidity. EXTREMITIES: No clubbing, no edema, no cyanosis, 2+ pulses and upper and lower extremities. MUSCULOSKELETAL: Muscle strength and tone normal. SPINE: No scoliosis or deformity SKIN: No rashes CENTRAL NERVOUS SYSTEM: No focal deficits, tone is normal in all 4 extremities. PSYCHIATRIC: Alert and oriented -3. Appropriate affect. Intact judgment and insight. - Labs CBC & Chem 7: 06/06/21 07:53 06/06/21 07:53 Labs: Abnormal Lab Results - Last 24 Hours (Table) 06/06/21 06/06/21 06/06/21 Range/Units 07:53 16:35 21:29 D-Dimer (<0.60) mg/L FEU POC Glucose (mg/dL) 310 H 175 H (75-99) mg/dL Hemoglobin A1c 6.8 H (4.0-6.0) % Lactate Dehydrogenase (313-618) U/L C-Reactive Protein (<1.0) mg/dL 06/07/21 06/07/21 06/07/21 Range/Units 07:19 08:40 08:40 D-Dimer 0.82 H (<0.60) mg/L FEU POC Glucose (mg/dL) 168 H (75-99) mg/dL Hemoglobin A1c (4.0-6.0) % Lactate Dehydrogenase 838 H (313-618) U/L C-Reactive Protein 1.7 H (<1.0) mg/dL 06/07/21 Range/Units 12:01 D-Dimer (<0.60) mg/L FEU POC Glucose (mg/dL) 195 H (75-99) mg/dL Hemoglobin A1c (4.0-6.0) % Lactate Dehydrogenase (313-618) U/L C-Reactive Protein (<1.0) mg/dL Assessment and Plan Assessment: 1 Acute hypoxic respiratory failure, related to acute COVID-19 pneumonia, onset of symptoms was 2 weeks prior to presentation, patient is non-vaccinated against COVID 19, outside the window for Remdesivir, and will be treated supportively with a combination of anticoagulation, Decadron and multivitamins 2 Elevated d-dimer, lower extremity Doppler showed a 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 Pratt Continue Decadron, Lovenox, vitamin supplements Remains on ceftriaxone and azithromycin We will continue to follow I, the cosigning physician, performed a history & physical examination of the patient. Lungs sounds with bibasilar crackles. Maintaining good O2 saturations in the 90s on 2 L/m per nasal cannula. I discussed the assessment and plan of care with my nurse practitioner, Renetta Brown. I attest to the above note as dictated by her.
[2021-06-07 16:41] LABS: Glucose,Whole Blood 294 mg/dL (75-99)
[2021-06-07 20:30] LABS: Glucose,Whole Blood 325 mg/dL (75-99)
--- NOTE | 2021-06-07 21:21 | P.PN ---
Subjective Progress Note Date: 06/07/21 This is an 86-year-old male patient of Dr. Larkin with past medical history of hypertension, hypertensive cardiovascular disease, hyperlipidemia, gastroesophageal reflux disease, diabetes mellitus type 2, obesity with obstructive sleep apnea and obesity hypoventilation syndrome, generalized osteo arthritis, chronic kidney disease stage IIIb, chronic DVT right lower extremity, patient had onset of symptoms 2 weeks ago with continued worsening of cough and shortness of breath. He has phlegm production. He has a little bit of chest pain. Patient complains of weakness and his had 3 falls at home. He presented to [facility] emergency center for evaluation found to be afebrile, heart rate 97, blood pressure 120/68, pulse ox 93%. EKG was a sinus rhythm with no acute ST changes. Chest x-ray was positive for Covid pneumonia. WBC 3.8, hemoglobin 12.4, platelet count 164. Sodium 133, BUN 21 creatinine 1.73. Blood sugar 237. ProBNP 981. Troponin 0.030. Lactic acid 1.0. Magnesium 1.5 and was replaced in the emergency center. Venous Doppler of the bilateral lower exam is negative for DVT. 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 Patient admitted to the [facility] floor, started on Lovenox, dexamethasone, vitamin supplements and consult with pulmonary medicine. patient examined bedside sitting comfortably in bed. Is currently saturating at 93% on room air otherwise vitals are stable afebrile pulse 67 respiratory 8. 19 blood pressure 116/66 magnesium has improved to 2.1 liver enzymes continues to remain elevated proBNP is normal. Patient has detailed workup of liver enzymes in the previous admission and was seen by Dr. Purcell. Fat ty hepatic infiltration was noted on hepatic ultrasound.. Continue patient on Decadron, Lovenox and supplementation. Venous Doppler suggestive of chronic DVT involving the right leg. Patient has no documentation of previous DVT and would benefit from Eliquis on discharge. will increase Lovenox to 100 subcu twice a day. His pro calcitonin was elevated he should patient on Rocephin and azithro mycin for possible overlying for bacterial infection Patient examined lying comfortably in bed. Patient endorses yellowish phlegm production and SOB, oxygen saturation mentained on 1 Litre. Continue decadon, vit supplement and lovenox with plan to initiate eliquis on discharge for chronic DVT. PT OT evaluation with possible transfer to [facility] as patient had 2 falls prior to admission . He has significant weakness from COVID Pneumonia and would benefot from rehab REVIEW OF SYSTEMS Constitutional: No fever, no chills, no night sweats. No weight change. Reports weakness, Reports fatigue. EENT: No headache. No blurred vision or double vision, no loss of vision. Reports loss of Hearing. No nasal drainage or congestion. No epistaxis. No sore throat. Lungs: Reports shortness of breath, reports cough, reports sputum production. No wheezing. Cardiovascular: No chest pain, no lower extremity edema. No palpitations. No paroxysmal nocturnal dyspnea. No orthopnea. No lightheadedness or dizziness. No syncopal episodes. Abdominal: Positive for abdominal pain. No nausea, vomiting. No diarrhea. No constipation. No bloody or tarry stools.. No loss of appetite. Genitourinary: No dysuria, increased frequency, urgency. No urinary retention. Musculoskeletal: No myalgias. Reports muscle weakness, Reports gait dysfunction, Reports falls. No back pain. No neck pain. Integumentary: No wounds, no lesions. No rash or pruritus. Neurologic: No aphasia. No facial droop. No change in mentation. No head injury. No headache. No paralysis. No paresthesia. Psychiatric: No depression. No anxiety. Endocrine: No abnormal blood sugars. PHYSICAL EXAMINATION Gen: This is an 86-year-old male. Patient is resting in bed and appears to be in no acute distress. He is currently on oxygen therapy at 1 L nasal cannula. HEENT: Head is atraumatic, normocephalic. Pupils equal, round. Sclerae is anicteric. NECK: Supple. No JVD. No lymphadenopathy. No thyromegaly. LUNGS: Diminished with bilateral crackles. No intercostal retractions. HEART: Regular rate and rhythm. No murmur. ABDOMEN: Soft. Bowel sounds are present. No masses. No tenderness. Umbilical hernia EXTREMITIES: No pedal edema. No calf tenderness. Dorsalis pedis palpable bilaterally. NEUROLOGICAL: Patient is awake, alert and oriented x3. Cranial nerves 2 through 12 are grossly intact. ASSESSMENT AND PLAN 1. Acute hypoxic respiratory failure secondary to COVID-19 pneumonia with bacterial coinfection his pro calcitonin is elevated. Continue Rocephin and azithromycin continued on dexamethasone, Lovenox, vitamin supplements, consult with pulmonary medicine, oxygen therapy. 2. Acute kidney injury secondary to ATN on Chronic kidney disease stage IIIb. Patient is status post 1.5 L of IV fluid. Recheck kidney function in the morning. 3. acute on chronic Generalized weakness with multiple falls PT and OT consults added. 4. Chronic DVT of right leg. Eliquis increased to 100 subcu twice a day with plan to discharge patient on Eliquis 5. Hypertension, hypertensive cardiovascular disease. Blood pressure is on the low side, continue lisinopril 2.5 mg daily with parameters, continue metoprolol 25 twice a day 6. Diabetes mellitus type 2 uncontrolled hyperglycemia. Continue NovoLog scale before meals and at bedtime, Levemir 35 units at bedtime. 7. Obesity with obstructive sleep apnea and obesity hypoventilation syndrome. Patient may have CPAP brought from home. 8. Gastroesophageal reflux disease and GI prophylaxis. Continue omeprazole or equivalent. 9. Benign prostatic hypertrophy. Continue Flomax 0.4 mg twice daily. 10. Hyperlipidemia. Continue atorvastatin 20 mg daily at bedtime 11. DVT prophylaxis. Lovenox 100 mg subcu BID Objective - Vital Signs Vital signs: Vital Signs Temp 97.3 F L 06/07/21 06:00 Pulse 76 06/07/21 06:00 Resp 16 06/07/21 06:00 BP 147/75 06/07/21 06:00 Pulse Ox 94 L 06/07/21 06:00 Intake & Output 06/06/21 06/07/21 06/07/21 18:59 06:59 18:59 Other: Voiding Method Urinal Urinal # Voids 1 2 - Labs CBC & Chem 7: 06/06/21 07:53 06/06/21 07:53 Labs: Abnormal Lab Results - Last 24 Hours (Table) 06/06/21 06/06/21 06/06/21 Range/Units 07:53 07:53 07:53 RBC 4.03 L (4.30-5.90) m/uL Hgb 12.8 L (13.0-17.5) gm/dL Potassium 5.2 H (3.5-5.1) mmol/L Creatinine 1.26 H (0.66-1.25) mg/dL Glucose 214 H (74-99) mg/dL POC Glucose (mg/dL) (75-99) mg/dL Hemoglobin A1c 6.8 H (4.0-6.0) % AST 74 H (17-59) U/L ALT 55 H (4-49) U/L Alkaline Phosphatase 183 H (38-126) U/L Albumin 3.2 L (3.5-5.0) g/dL 06/06/21 06/06/21 06/06/21 Range/Units 11:56 16:35 21:29 RBC (4.30-5.90) m/uL Hgb (13.0-17.5) gm/dL Potassium (3.5-5.1) mmol/L Creatinine (0.66-1.25) mg/dL Glucose (74-99) mg/dL POC Glucose (mg/dL) 269 H 310 H 175 H (75-99) mg/dL Hemoglobin A1c (4.0-6.0) % AST (17-59) U/L ALT (4-49) U/L Alkaline Phosphatase (38-126) U/L Albumin (3.5-5.0) g/dL
[2021-06-07] MEDS: INSULIN DETEMIR (LEVEMIR) 100 UNIT/ML SYR SQ SCH (21:44)
[2021-06-07] MEDS: ATORVASTATIN 20 MG TAB PO SCH (21:45)
[2021-06-08 07:04] LABS: Glucose,Whole Blood 109 mg/dL (75-99)
[2021-06-08] MEDS: PANTOPRAZOLE 40 MG TABLET PO SCH (08:35)
[2021-06-08] MEDS: INSULIN ASPART (NovoLOG) 100 UNIT/ML VIAL SQ SCH ×7 (08:35→20:46)
[2021-06-08] MEDS: METOPROLOL TARTRATE 25 MG TAB PO SCH ×2 (08:35→20:45)
[2021-06-08] MEDS: ENOXAPARIN 100 MG/ML SYRINGE SQ SCH ×2 (08:35→20:45)
[2021-06-08] MEDS: dexAMETHasone 2 MG TAB PO SCH (08:35)
[2021-06-08] MEDS: AZITHROMYCIN 1,200 MG/30 ML BOTTLE PO SCH (08:36)
[2021-06-08] MEDS: ASCORBIC ACID 500 MG TAB PO SCH (08:36)
[2021-06-08] MEDS: TAMSULOSIN 0.4 MG CAP.ER.24H PO SCH ×2 (08:36→18:18)
[2021-06-08] MEDS: ZINC SULFATE 220 MG CAP PO SCH (08:36)
[2021-06-08] MEDS: CHOLECALCIFEROL 25 MCG (1000 IU) TABLET PO SCH (08:36)
--- NOTE | 2021-06-08 11:42 | P.DS ---
Providers Date of admission: 06/04/21 17:02 Attending physician: Malika Malagon MD Consults: 06/04/21 16:59 Consult Physician Urgent Consulting Provider: Vincent Pratt Consult Reason/Comments: COVID pneumonia Do you want consulting provider notified?: Yes Primary care physician: Leonard Trae [facility] Course: This is an 86-year-old male patient of Dr. Larkin with past medical history of hypertension, hypertensive cardiovascular disease, hyperlipidemia, gastroesophageal reflux disease, diabetes mellitus type 2, obesity with obstructive sleep apnea and obesity hypoventilation syndrome, generalized osteoarthritis, chronic kidney disease stage IIIb, chronic DVT right lower extremity, patient had onset of symptoms 2 weeks ago with continued worsening of cough and shortness of breath. He has phlegm production. He has a little bit of chest pain. Patient complains of weakness and his had 3 falls at home. He presented to [facility] emergency center for evaluation found to be afebrile, heart rate 97, blood pressure 120/68, pulse ox 93%. EKG was a sinus rhythm with no acute ST changes. Chest x-ray was positive for Covid pneumonia. WBC 3.8, hemoglobin 12.4, platelet count 164. Sodium 133, BUN 21 creatinine 1.73. Blood sugar 237. ProBNP 981. Troponin 0.030. Lactic acid 1.0. Magnesium 1.5 and was replaced in the emergency center. Venous Doppler of the bilateral lower exam is negative for DVT. 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 Patient admitted to the [facility] floor, started on Lovenox, dexamethasone, vitamin supplements and consult with pulmonary medicine. patient examined bedside sitting comfortably in bed. Is currently saturating at 93% on room air otherwise vitals are stable afebrile pulse 67 respiratory 8. 19 blood pressure 116/66 magnesium has improved to 2.1 liver enzymes continues to remain elevated proBNP is normal. Patient has detailed workup of liver enzymes in the previous admission and was seen by Dr. Purcell. Fatty hepatic infiltration was noted on hepatic ultrasound.. Continue patient on Decadron, Lovenox and supplementation. Venous Doppler suggestive of chronic DVT involving the right leg. Patient has no documentation of previous DVT and would benefit from Eliquis on discharge. will increase Lovenox to 100 subcu twice a day. His pro calcitonin was elevated he should patient on Rocephin and azithromycin for possible overlying for bacterial infection Patient examined lying comfortably in bed. Patient endorses yellowish phlegm production and SOB, oxygen saturation mentained on 1 Litre. Continue decadon, vit supplement and lovenox with plan to initiate eliquis on discharge for chronic DVT. PT OT evaluation with possible transfer to [facility] as patient had 2 falls prior to admission . He has significant weakness from COVID Pneumonia and would benefot from rehab 06/08 patient examined lying comfortably in bed. He is coughing white phlegm associated with congestion denies any shortness of breath. Patient continues to remain on 2 L oxygen saturating 90-91% blood pressure 147/78, LDH 8:30 8B1.7 continues to improve. Blood sugar ranging from 109 to 325. Continue Decadron, vitamin supplements. Lovenox for this issue Eliquis for 1 month. patient is significantly weak and is unable to get a his activities at this point. PTOT has recommended subacute rehab. I feel patient would benefit for a few days and we have before he is discharged to his home setting. Patient will complete Augmentin twice a day for 7 days PHYSICAL EXAMINATION Gen: This is an 86-year-old male. Patient is resting in bed and appears to be in no acute distress. He is currently on oxygen therapy at 1 L nasal cannula. HEENT: Head is atraumatic, normocephalic. Pupils equal, round. Sclerae is anicteric. NECK: Supple. No JVD. No lymphadenopathy. No thyromegaly. LUNGS: Diminished with bilateral crackles. No intercostal retractions. HEART: Regular rate and rhythm. No murmur. ABDOMEN: Soft. Bowel sounds are present. No masses. No tenderness. Umbilical hernia EXTREMITIES: No pedal edema. No calf tenderness. Dorsalis pedis palpable bilaterally. NEUROLOGICAL: Patient is awake, alert and oriented x3. Cranial nerves 2 through 12 are grossly intact. Discharge diagnosis 1. Acute hypoxic respiratory failure secondary to COVID-19 pneumonia with bacterial coinfection 2. Acute kidney injury secondary to ATN on Chronic kidney disease stage IIIb. 3. acute on chronic Generalized weakness with multiple falls 4. Chronic DVT of right leg. 5. Hypertension, hypertensive cardiovascular disease. 6. Diabetes mellitus type 2 uncontrolled hyperglycemia. 7. Obesity with obstructive sleep apnea and obesity hypoventilation syndrome. 8. Gastroesophageal reflux disease 9. Benign prostatic hypertrophy. 10. Hyperlipidemia. Discharge of [facility] home today likely [facility] if beds available More than 30 minutes was spent making discharge plan for the patient and counseling the patient Patient Condition at Discharge: Stable Plan - Discharge Summary Discharge Rx Participant: No New Discharge Prescriptions: New Amoxic-Pot Clav 875-125Mg [Augmentin 875-125] 1 tab PO Q12HR 7 Days #14 tab INSULIN ASPART (NovoLOG) [NovoLOG (formulary)] 0 unit SQ ACHS ml Apixaban [Eliquis] 5 mg PO BID #60 tab guaiFENesin [Mucinex] 1,200 mg PO Q12HR tablet Benzonatate [Tessalon Perles] 200 mg PO TID PRN cap PRN Reason: Cough dexAMETHasone ORAL [Hexadrol] 6 mg PO DAILY tab Zinc Sulfate [Orazinc] 220 mg PO DAILY cap Ascorbic Acid [Vitamin C] 1,000 mg PO DAILY tab Cholecalciferol [Vitamin D3 (25 Mcg = 1000 Iu)] 50 mcg PO DAILY tablet Continue Tamsulosin [Flomax] 0.4 mg PO PC-BID Simvastatin [Zocor] 40 mg PO HS lisinopriL [Zestril] 2.5 mg PO DAILY glipiZIDE/METFORMIN HCL [glipiZIDE/METFORMIN HCL 2.5-500 mg] 2 tab PO BID Omeprazole 20 mg PO DAILY Metoprolol Tartrate [Lopressor] 25 mg PO BID #60 tab Nitroglycerin Sl Tabs [Nitrostat] 0.4 mg SUBLINGUAL Q5M PRN tab PRN Reason: Chest Pain Insulin Glargine,Hum.rec.anlog [Basaglar Kwikpen U-100] 35 unit SQ HS Ibuprofen [Motrin Ib] 200 mg PO Q8H PRN PRN Reason: Pain Discharge Medication List Simvastatin [Zocor] 40 mg PO HS 11/26/16 [History] Tamsulosin [Flomax] 0.4 mg PO PC-BID 11/26/16 [History] lisinopriL [Zestril] 2.5 mg PO DAILY 11/26/16 [History] Omeprazole 20 mg PO DAILY 08/30/20 [History] glipiZIDE/METFORMIN HCL [glipiZIDE/METFORMIN HCL 2.5-500 mg] 2 tab PO BID 08/30/20 [History] Metoprolol Tartrate [Lopressor] 25 mg PO BID #60 tab 09/04/20 [Rx] Nitroglycerin Sl Tabs [Nitrostat] 0.4 mg SUBLINGUAL Q5M PRN tab 09/04/20 [Rx] Insulin Glargine,Hum.rec.anlog [Basaglar Kwikpen U-100] 35 unit SQ HS 03/04/21 [History] Ibuprofen [Motrin Ib] 200 mg PO Q8H PRN 06/04/21 [History] Amoxic-Pot Clav 875-125Mg [Augmentin 875-125] 1 tab PO Q12HR 7 Days #14 tab 06/08/21 [Rx] Apixaban [Eliquis] 5 mg PO BID #60 tab 06/08/21 [Rx] Ascorbic Acid [Vitamin C] 1,000 mg PO DAILY tab 06/08/21 [Rx] Benzonatate [Tessalon Perles] 200 mg PO TID PRN cap 06/08/21 [Rx] Cholecalciferol [Vitamin D3 (25 Mcg = 1000 Iu)] 50 mcg PO DAILY tablet 06/08/21 [Rx] INSULIN ASPART (NovoLOG) [NovoLOG (formulary)] 0 unit SQ ACHS ml 06/08/21 [Rx] Zinc Sulfate [Orazinc] 220 mg PO DAILY cap 06/08/21 [Rx] dexAMETHasone ORAL [Hexadrol] 6 mg PO DAILY tab 06/08/21 [Rx] guaiFENesin [Mucinex] 1,200 mg PO Q12HR tablet 06/08/21 [Rx] Follow up Appointment(s)/Referral(s): Leonard Larkin MD [Primary Care Provider] - 1-2 days (Office closed. Please call to make appointment. ) Discharge Disposition: TRANSFER TO SNF/ECF Plan of Treatment: on 1 L of oxygen
[2021-06-08 11:46] LABS: Glucose,Whole Blood 153 mg/dL (75-99)
[2021-06-08] MEDS: guaiFENesin 600 MG TABLET.ER PO SCH ×2 (12:39→20:45)
--- NOTE | 2021-06-08 16:41 | P.PN ---
Subjective Progress Note Date: 06/08/21 This is an 86-year-old male patient of Dr. Larkin with past medical history of hypertension, hypertensive cardiovascular disease, hyperlipidemia, gastroesophageal reflux disease, diabetes mellitus type 2, obesity with obstructive sleep apnea and obesity hypoventilation syndrome, generalized osteo arthritis, chronic kidney disease stage IIIb, chronic DVT right lower extremity, patient had onset of symptoms 2 weeks ago with continued worsening of cough and shortness of breath. He has phlegm production. He has a little bit of chest pain. Patient complains of weakness and his had 3 falls at home. He presented to [facility] emergency center for evaluation found to be afebrile, heart rate 97, blood pressure 120/68, pulse ox 93%. EKG was a sinus rhythm with no acute ST changes. Chest x-ray was positive for Covid pneumonia. WBC 3.8, hemoglobin 12.4, platelet count 164. Sodium 133, BUN 21 creatinine 1.73. Blood sugar 237. ProBNP 981. Troponin 0.030. Lactic acid 1.0. Magnesium 1.5 and was replaced in the emergency center. Venous Doppler of the bilateral lower exam is negative for DVT. 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 Patient admitted to the [facility] floor, started on Lovenox, dexamethasone, vitamin supplements and consult with pulmonary medicine. patient examined bedside sitting comfortably in bed. Is currently saturating at 93% on room air otherwise vitals are stable afebrile pulse 67 respiratory 8. 19 blood pressure 116/66 magnesium has improved to 2.1 liver enzymes continues to remain elevated proBNP is normal. Patient has detailed workup of liver enzymes in the previous admission and was seen by Dr. Purcell. Fat ty hepatic infiltration was noted on hepatic ultrasound.. Continue patient on Decadron, Lovenox and supplementation. Venous Doppler suggestive of chronic DVT involving the right leg. Patient has no documentation of previous DVT and would benefit from Eliquis on discharge. will increase Lovenox to 100 subcu twice a day. His pro calcitonin was elevated he should patient on Rocephin and azithro mycin for possible overlying for bacterial infection Patient examined lying comfortably in bed. Patient endorses yellowish phlegm production and SOB, oxygen saturation mentained on 1 Litre. Continue decadon, vit supplement and lovenox with plan to initiate eliquis on discharge for chronic DVT. PT OT evaluation with possible transfer to [facility] as patient had 2 falls prior to admission . He has significant weakness from COVID Pneumonia and would benefot from rehab 06/08 patient examined lying comfortably in bed. He is coughing white phlegm associated with congestion denies any shortness of breath. Patient continues to remain on 2 L oxygen saturating 90-91% blood pressure 147/78, LDH 8:30 8B1.7 continues to improve. Blood sugar ranging from 109 to 325. Continue Decadron, vitamin supplements. Lovenox for this issue Eliquis for 1 month. patient is significantly weak and is unable to get a his activities at this point. PTOT has recommended subacute rehab. I feel patient would benefit for a few days and we have before he is discharged to his home setting. Patient will complete Augmentin twice a day for 7 days. Mucinex 1200 twice a day Tessalon Perles added at 100 mg 3 times. Patient's elected to send patient to rehab who would like to take patient home. PT OT has recommended subacute rehab due to increased weakness. Will arrange patient's oxygen with possible discharge to home with home physical therapy as per family request REVIEW OF SYSTEMS Constitutional: No fever, no chills, no night sweats. No weight change. Reports weakness, Reports fatigue. EENT: No headache. No blurred vision or double vision, no loss of vision. Reports loss of Hearing. No nasal drainage or congestion. No epistaxis. No sore throat. Lungs: Reports shortness of breath, reports cough, reports sputum production. No wheezing. Cardiovascular: No chest pain, no lower extremity edema. No palpitations. No paroxysmal nocturnal dyspnea. No orthopnea. No lightheadedness or dizziness. No syncopal episodes. Abdominal: Positive for abdominal pain. No nausea, vomiting. No diarrhea. No constipation. No bloody or tarry stools.. No loss of appetite. Genitourinary: No dysuria, increased frequency, urgency. No urinary retention. Musculoskeletal: No myalgias. Reports muscle weakness, Reports gait dysfunction, Reports falls. No back pain. No neck pain. Integumentary: No wounds, no lesions. No rash or pruritus. Neurologic: No aphasia. No facial droop. No change in mentation. No head injury. No headache. No paralysis. No paresthesia. Psychiatric: No depression. No anxiety. Endocrine: No abnormal blood sugars. PHYSICAL EXAMINATION Gen: This is an 86-year-old male. Patient is resting in bed and appears to be in no acute distress. He is currently on oxygen therapy at 1 L nasal cannula. HEENT: Head is atraumatic, normocephalic. Pupils equal, round. Sclerae is anicteric. NECK: Supple. No JVD. No lymphadenopathy. No thyromegaly. LUNGS: Diminished with bilateral crackles. No intercostal retractions. HEART: Regular rate and rhythm. No murmur. ABDOMEN: Soft. Bowel sounds are present. No masses. No tenderness. Umbilical hernia EXTREMITIES: No pedal edema. No calf tenderness. Dorsalis pedis palpable bilaterally. NEUROLOGICAL: Patient is awake, alert and oriented x3. Cranial nerves 2 through 12 are grossly intact. ASSESSMENT AND PLAN 1. Acute hypoxic respiratory failure secondary to COVID-19 pneumonia with bacterial coinfection his pro calcitonin is elevated. Continue Rocephin and azithromycin continued on dexamethasone, Lovenox, vitamin supplements, consult with pulmonary medicine, oxygen therapy. Mucinex 1200 mg twice daily. Tessalon Perles 100 mg 3 times daily 2. Acute kidney injury secondary to ATN on Chronic kidney disease stage IIIb. Patient is status post 1.5 L of IV fluid. Recheck kidney function in the morning. 3. acute on chronic Generalized weakness with multiple falls PT and OT consults added recommend [facility]. Patient is requesting discharging patient home 4. Chronic DVT of right leg. Eliquis increased to 100 subcu twice a day with plan to discharge patient on Eliquis 5. Hypertension, hypertensive cardiovascular disease. Blood pressure is on the low side, continue lisinopril 2.5 mg daily with parameters, continue metoprolol 25 twice a day 6. Diabetes mellitus type 2 uncontrolled hyperglycemia. Continue NovoLog scale before meals and at bedtime, Levemir 35 units at bedtime. 7. Obesity with obstructive sleep apnea and obesity hypoventilation syndrome. Patient may have CPAP brought from home. 8. Gastroesophageal reflux disease and GI prophylaxis. Continue omeprazole or equivalent. 9. Benign prostatic hypertrophy. Continue Flomax 0.4 mg twice daily. 10. Hyperlipidemia. Continue atorvastatin 20 mg daily at bedtime 11. DVT prophylaxis. Lovenox 100 mg subcu BID Objective - Vital Signs Vital signs: Vital Signs Temp 98.5 F 11/26/21 06:18 Pulse 64 06/08/21 06:18 Resp 17 06/08/21 06:18 BP 154/76 06/08/21 06:18 Pulse Ox 90 L 06/08/21 06:18 Intake & Output 06/07/21 06/08/21 06/08/21 18:59 06:59 18:59 Intake Total 300 Balance 300 Intake: Oral 300 Other: Voiding Method Urinal # Voids 3 # Bowel Movements 1 - Labs CBC & Chem 7: 06/06/21 07:53 06/06/21 07:53 Labs: Abnormal Lab Results - Last 24 Hours (Table) 06/07/21 06/07/21 06/07/21 Range/Units 12:01 16:40 20:28 POC Glucose (mg/dL) 195 H 294 H 325 H (75-99) mg/dL 06/08/21 Range/Units 07:02 POC Glucose (mg/dL) 109 H (75-99) mg/dL
[2021-06-08 16:48] LABS: Glucose,Whole Blood 167 mg/dL (75-99)
--- NOTE | 2021-06-08 19:18 | P.PN ---
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 Patient complains of weakness and patient had 3 falls at home, he states his been sick for about 2 weeks, has been nauseous, vomiting, he has been freezing and then getting hot and sweating. His symptoms progressed to worsening dyspnea, cough. He is not vaccinated against COVID-19. Patient tested positive for COVID-19 on outpatient basis on 06/03/2021. The emergency department she was found to be hypoxic and satting 88% on room air. Chest x-ray showed cardiomegaly, retrocardiac infiltrate and some mild interstitial infiltrate at the right base. His labs show white blood cell count of 3.8, hemoglobin of 12.4, d-dimer today 0.9, sodium is 133, potassium is 3.8, CO2 is 24, BUN is 21, creatinine is 1.73, glucose is 237, lactic acid is 1.0, calcium is 8.2, magnesium is 1.5, AST 65, ALT is 55, alkaline phosphatase is 132, proBNP is 981, troponin was 0.031. Patient was started on Decadron, he is on Lovenox 100 mg daily, lower extremity Dopplers showed chronic DVT in the right lower extremity, negative DVT in the left lower extremity. EKgG shows normal sinus rhythm. Currently only on 1 L of oxygen his pulse ox is 95%. The patient is seen today 06/06/2021 in follow-up on the regular medical floor. He is currently resting comfortably in bed. Awake and alert in no acute distress. He is maintaining O2 saturations in the 90s and 2 L/m per nasal cannula. Dopplers of lower extremities revealed chronic DVT in the right leg. 0.9 normal saline at 20 ML's per hour. White count 3.8. Hemoglobin 12.8. Sodium 138. Potassium 5.2. Creatinine 1.26. AST 74. ALT 55. He is continued on Decadron, Lovenox, vitamin supplements. Antibiotics in the form of ceftriaxone and azithromycin. The patient is seen today 06/07/2021 in follow-up on the regular medical floor. He is currently resting comfortably in bed. Awake and alert in no acute distress. Feeling about the same today as compared to yesterday. He continues to maintain O2 saturations in the 90s on 2 L/m per nasal cannula. She's been afebrile. Hemodynamically stable. D-dimer 0.82. LDH 838. C-reactive protein 1.7. Glucose 195. He remains on antibiotics in the form of ceftriaxone and azithromycin. Continued on Lovenox, Decadron, vitamin supplements. The patient is seen today 06/08/2021 in follow-up on the regular medical floor. He is currently sitting up in bed. Awake and alert in no acute distress. Maintaining O2 saturations in the 90s on 2 L/m per nasal cannula. Home oxygen has been arranged for him. He is continued on Decadron, Lovenox, vitamin supplements. Antibiotics in the form of azithromycin. Still positive coronavirus by PCR. Blood glucose 153. Plan is for discharge to [facility] once a bed is available Objective - Vital Signs Vital signs: Vital Signs Temp 98 F 06/08/21 17:10 Pulse 70 06/08/21 17:10 Resp 18 06/08/21 17:10 BP 163/81 06/08/21 17:10 Pulse Ox 90 L 06/08/21 17:10 Intake & Output 06/08/21 06/08/21 06/09/21 06:59 18:59 06:59 Intake Total 300 Balance 300 Intake: Oral 300 - Exam GENERAL EXAM: Alert, 86-year-old male patient, resting comfortably in bed, currently on 2 L of oxygen HEAD: Normocephalic/atraumatic. EYES: Normal reaction of pupils, equal size. Conjunctiva pink, sclera white. NOSE: Clear with pink turbinates. THROAT: No erythema or exudates. NECK: No masses, no JVD, no thyroid enlargement, no adenopathy. CHEST: No chest wall deformity. Symmetrical expansion. LUNGS: Equal air entry with bibasilar crackles CVS: Regular rate and rhythm, normal S1 and S2, no gallops, no murmurs, no rubs ABDOMEN: Soft, nontender. No hepatosplenomegaly, normal bowel sounds, no guarding or rigidity. EXTREMITIES: No clubbing, no edema, no cyanosis, 2+ pulses and upper and lower extremities. MUSCULOSKELETAL: Muscle strength and tone normal. SPINE: No scoliosis or deformity SKIN: No rashes CENTRAL NERVOUS SYSTEM: No focal deficits, tone is normal in all 4 extremities. PSYCHIATRIC: Alert and oriented -3. Appropriate affect. Intact judgment and insight. - Labs CBC & Chem 7: 06/06/21 07:53 06/06/21 07:53 Labs: Abnormal Lab Results - Last 24 Hours (Table) 06/07/21 06/08/21 06/08/21 Range/Units 20:28 07:02 10:12 POC Glucose (mg/dL) 325 H 109 H (75-99) mg/dL Coronavirus (PCR) Detected A (Not Detectd) 06/08/21 06/08/21 Range/Units 11:38 16:47 POC Glucose (mg/dL) 153 H 167 H (75-99) mg/dL Coronavirus (PCR) (Not Detectd) Assessment and Plan Assessment: 1 Acute hypoxic respiratory failure, related to acute COVID-19 pneumonia, onset of symptoms was 2 weeks prior to presentation, patient is non-vaccinated against COVID 19, outside the window for Remdesivir, and will be treated supportively with a combination of anticoagulation, Decadron and multivitamins 2 Elevated d-dimer, lower extremity Doppler showed a 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 Santa Gordillo from the pulmonary standpoint, on 2 L Continue Decadron, Lovenox, vitamin supplements To be transferred to [facility] I, the cosigning physician, performed a history & physical examination of the patient. Lungs sounds with bibasilar crackles. Maintaining good O2 saturations in the 90s on 2 L/m per nasal cannula. I discussed the assessment and plan of care with my nurse practitioner, Renetta Brown. I attest to the above note as dictated by her.
[2021-06-08 20:13] LABS: Glucose,Whole Blood 176 mg/dL (75-99)
[2021-06-08] MEDS: ATORVASTATIN 20 MG TAB PO SCH (20:45)
[2021-06-08] MEDS: INSULIN DETEMIR (LEVEMIR) 100 UNIT/ML SYR SQ SCH (20:45)
[2021-06-09] MEDS: BENZONATATE 100 MG CAP PO PRN ×2 (00:45→22:25)
[2021-06-09 07:04] LABS: Glucose,Whole Blood 86 mg/dL (75-99)
[2021-06-09] MEDS: INSULIN ASPART (NovoLOG) 100 UNIT/ML VIAL SQ SCH ×7 (07:11→22:24)
[2021-06-09] MEDS: CHOLECALCIFEROL 25 MCG (1000 IU) TABLET PO SCH (08:38)
[2021-06-09] MEDS: ENOXAPARIN 100 MG/ML SYRINGE SQ SCH ×2 (08:38→22:26)
[2021-06-09] MEDS: METOPROLOL TARTRATE 25 MG TAB PO SCH ×2 (08:38→22:25)
[2021-06-09] MEDS: PANTOPRAZOLE 40 MG TABLET PO SCH (08:39)
[2021-06-09] MEDS: ZINC SULFATE 220 MG CAP PO SCH (08:39)
[2021-06-09] MEDS: TAMSULOSIN 0.4 MG CAP.ER.24H PO SCH ×2 (08:39→17:36)
[2021-06-09] MEDS: dexAMETHasone 2 MG TAB PO SCH (08:39)
[2021-06-09] MEDS: guaiFENesin 600 MG TABLET.ER PO SCH ×2 (08:39→22:25)
[2021-06-09] MEDS: ASCORBIC ACID 500 MG TAB PO SCH (08:39)
[2021-06-09] MEDS: AZITHROMYCIN 1,200 MG/30 ML BOTTLE PO SCH (08:59)
[2021-06-09] MEDS ORDERED: FUROSEMIDE 10 MG/ML 4 ML VIAL IV STA (09:53)
[2021-06-09 10:02] VITALS: BMI 39.4
--- NOTE | 2021-06-09 11:32 | XR ---
EXAMINATION TYPE: XR chest 1V portable DATE OF EXAM: 06/09/2021 CLINICAL HISTORY: Hypoxia progress study. TECHNIQUE: Single AP portable upright view of the chest is obtained. COMPARISON: Chest x-ray from 5 days earlier FINDINGS: Persistent cardiomegaly and chronic parenchymal changes with increasing reticulonodular le ft greater than right bibasilar opacities. Osseous structures are intact. IMPRESSION: Cardiomegaly and chronic parenchymal changes with worsening bibasilar reticulonodular opa cities. Findings consistent with covid-19 infection progression.
[2021-06-09 11:40] LABS: Glucose,Whole Blood 116 mg/dL (75-99)
--- NOTE | 2021-06-09 12:11 | P.PN ---
Subjective Progress Note Date: 06/09/21 This is an 86-year-old male patient of Dr. Larkin with past medical history of hypertension, hypertensive cardiovascular disease, hyperlipidemia, gastroesophageal reflux disease, diabetes mellitus type 2, obesity with obstructive sleep apnea and obesity hypoventilation syndrome, generalized osteo arthritis, chronic kidney disease stage IIIb, chronic DVT right lower extremity, patient had onset of symptoms 2 weeks ago with continued worsening of cough and shortness of breath. He has phlegm production. He has a little bit of chest pain. Patient complains of weakness and his had 3 falls at home. He presented to [facility] emergency center for evaluation found to be afebrile, heart rate 97, blood pressure 120/68, pulse ox 93%. EKG was a sinus rhythm with no acute ST changes. Chest x-ray was positive for Covid pneumonia. WBC 3.8, hemoglobin 12.4, platelet count 164. Sodium 133, BUN 21 creatinine 1.73. Blood sugar 237. ProBNP 981. Troponin 0.030. Lactic acid 1.0. Magnesium 1.5 and was replaced in the emergency center. Venous Doppler of the bilateral lower exam is negative for DVT. 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 Patient admitted to the [facility] floor, started on Lovenox, dexamethasone, vitamin supplements and consult with pulmonary medicine. patient examined bedside sitting comfortably in bed. Is currently saturating at 93% on room air otherwise vitals are stable afebrile pulse 67 respiratory 8. 19 blood pressure 116/66 magnesium has improved to 2.1 liver enzymes continues to remain elevated proBNP is normal. Patient has detailed workup of liver enzymes in the previous admission and was seen by Dr. Purcell. Fat ty hepatic infiltration was noted on hepatic ultrasound.. Continue patient on Decadron, Lovenox and supplementation. Venous Doppler suggestive of chronic DVT involving the right leg. Patient has no documentation of previous DVT and would benefit from Eliquis on discharge. will increase Lovenox to 100 subcu twice a day. His pro calcitonin was elevated he should patient on Rocephin and azithro mycin for possible overlying for bacterial infection Patient examined lying comfortably in bed. Patient endorses yellowish phlegm production and SOB, oxygen saturation mentained on 1 Litre. Continue decadon, vit supplement and lovenox with plan to initiate eliquis on discharge for chronic DVT. PT OT evaluation with possible transfer to [facility] as patient had 2 falls prior to admission . He has significant weakness from COVID Pneumonia and would benefot from rehab 06/08 patient examined lying comfortably in bed. He is coughing white phlegm associated with congestion denies any shortness of breath. Patient continues to remain on 2 L oxygen saturating 90-91% blood pressure 147/78, LDH 8:30 8B1.7 continues to improve. Blood sugar ranging from 109 to 325. Continue Decadron, vitamin supplements. Lovenox for this issue Eliquis for 1 month. patient is significantly weak and is unable to get a his activities at this point. PTOT has recommended subacute rehab. I feel patient would benefit for a few days and we have before he is discharged to his home setting. Patient will complete Augmentin twice a day for 7 days. Mucinex 1200 twice a day Tessalon Perles added at 100 mg 3 times. Patient's elected to send patient to rehab who would like to take patient home. PT OT has recommended subacute rehab due to increased weakness. Will arrange patient's oxygen with possible discharge to home with home physical therapy as per family request 06/09 patient is lying in bed appears tired and weak. Her earlier today and nurse called as patient's oxygen requirement increased from 1 L to 10 L. Patient denies any worsening shortness breath or cough or dizziness. Chest x-r ay was obtained as suggest bilateral radiculo nodular opacities suggestive of progression of Covid pneumonia. Patient is currently maintaining oxygenation 92% on 10 L of oxygen temp is 97.6 pulse 84 respiratory rate 17. Labs show worsening of information 3 markers suggesting increase of energy and she increase in CRP. No family updated on the prognosis. Await recommendation from pulmonary. Patient would benefit from Baricitinib infusion. Pulmonary recommendations awaiting REVIEW OF SYSTEMS Constitutional: No fever, no chills, no night sweats. No weight change. Reports weakness, Reports fatigue. EENT: No headache. No blurred vision or double vision, no loss of vision. Reports loss of Hearing. No nasal drainage or congestion. No epistaxis. No sore throat. Lungs: Reports worsening shortness of breath, reports cough, reports sputum production. No wheezing. Cardiovascular: No chest pain, no lower extremity edema. No palpitations. No paroxysmal nocturnal dyspnea. No orthopnea. No lightheadedness or dizziness. No syncopal episodes. Abdominal: Denies abdominal pain. No nausea, vomiting. No diarrhea. No constipation. No bloody or tarry stools.. No loss of appetite. Genitourinary: No dysuria, increased frequency, urgency. No urinary retention. Musculoskeletal: No myalgias. Reports muscle weakness, Reports gait dysfunction, Reports falls. No back pain. No neck pain. Integumentary: No wounds, no lesions. No rash or pruritus. Neurologic: No aphasia. No facial droop. No change in mentation. No head injury. No headache. No paralysis. No paresthesia. Psychiatric: No depression. No anxiety. Endocrine: No abnormal blood sugars. PHYSICAL EXAMINATION Gen: This is an 86-year-old male. Patient is resting in bed and appears to be in no acute distress. He is currently on oxygen therapy at 1 L nasal cannula. HEENT: Head is atraumatic, normocephalic. Pupils equal, round. Sclerae is anicteric. NECK: Supple. No JVD. No lymphadenopathy. No thyromegaly. LUNGS: Diminished with bilateral crackles. No intercostal retractions. HEART: Regular rate and rhythm. No murmur. ABDOMEN: Soft. Bowel sounds are present. No masses. No tenderness. Umbilical hernia EXTREMITIES: No pedal edema. No calf tenderness. Dorsalis pedis palpable bilaterally. NEUROLOGICAL: Patient is awake, alert and oriented x3. Cranial nerves 2 through 12 are grossly intact. ASSESSMENT AND PLAN 1. Acute hypoxic respiratory failure secondary to COVID-19 pneumonia with bacterial coinfection his pro calcitonin is elevated. Continue Rocephin and azithromycin continued on dexamethasone, Lovenox, vitamin supplements, consult with pulmonary medicine, oxygen therapy. Mucinex 1200 mg twice daily. Tessalon Perles 100 mg 3 times daily dexamethasone increased to 6 mg IV twice a day hold pulmonary recommendation on possible Avastin and since inflammation markers are getting high 2. Acute kidney injury secondary to ATN on Chronic kidney disease stage IIIb. Patient is status post 1.5 L of IV fluid. Recheck kidney function in the morning. 3. acute on chronic Generalized weakness with multiple falls PT and OT consults added recommend CARLITO. Patient is requesting discharging patient home 4. Chronic DVT of right leg. Eliquis increased to 100 subcu twice a day with plan to discharge patient on Eliquis 5. Hypertension, hypertensive cardiovascular disease. Blood pressure is on the low side, continue lisinopril 2.5 mg daily with parameters, continue metoprolol 25 twice a day 6. Diabetes mellitus type 2 uncontrolled hyperglycemia. Continue NovoLog scale before meals and at bedtime, Levemir 35 units at bedtime. 7. Obesity with obstructive sleep apnea and obesity hypoventilation syndrome. Patient may have CPAP brought from home. 8. Gastroesophageal reflux disease and GI prophylaxis. Continue omeprazole or equivalent. 9. Benign prostatic hypertrophy. Continue Flomax 0.4 mg twice daily. 10. Hyperlipidemia. Continue atorvastatin 20 mg daily at bedtime 11. DVT prophylaxis. Lovenox 100 mg subcu BID Objective - Vital Signs Vital signs: Vital Signs Temp 97.6 F 06/09/21 09:20 Pulse 84 06/09/21 09:20 Resp 17 06/09/21 09:20 BP 154/80 06/09/21 09:20 Pulse Ox 90 L 06/09/21 09:40 Intake & Output 06/08/21 06/09/21 06/09/21 18:59 06:59 18:59 Intake Total 50 400 Output Total 100 Balance 50 300 Weight 124.738 kg Intake: Intake, IV Titration 50 Amount cefTRIAXone 1 gm In 50 Sodium Chloride 0.9% 50 ml @ 100 mls/hr IVPB Q24HR COUNT INCLUDES THE [facility] Rx#:[id number] Oral 400 Output: Urine 100 Other: # Voids 3 - Labs CBC & Chem 7: 06/06/21 07:53 06/06/21 07:53 Labs: Abnormal Lab Results - Last 24 Hours (Table) 06/08/21 06/08/21 06/09/21 Range/Units 16:47 20:11 10:52 POC Glucose (mg/dL) 167 H 176 H (75-99) mg/dL Lactate Dehydrogenase 1278 H (313-618) U/L C-Reactive Protein 2.0 H (<1.0) mg/dL 06/09/21 Range/Units 11:38 POC Glucose (mg/dL) 116 H (75-99) mg/dL Lactate Dehydrogenase (313-618) U/L C-Reactive Protein (<1.0) mg/dL
[2021-06-09 16:16] LABS: Glucose,Whole Blood 254 mg/dL (75-99)
--- NOTE | 2021-06-09 17:20 | P.PN ---
Subjective Progress Note Date: 06/09/21 Principal diagnosis: Dyspnea On 06/09/2021 patient seen in follow-up on medical surgical floor. He was supposed to be discharged home today, she was doing well, he was only requiring minimal supplemental oxygen however patient became progressively hypoxic, and he is currently on 11 L of oxygen pulse ox is 88-90%, afebrile, chest x-ray was repeated showed cardiomegaly and chronic parenchymal changes with worsening bibasilar reticulonodular opacities, and the findings were consistent with COVID-19 infection progression. He was given a dose of Lasix for worsening respiratory status, his Decadron dose was increased to 6 mg twice daily, and his Lovenox has been increased to 100 mg twice daily per [facility] provider, he is also on azithromycin and Tessalon Perles. 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 Left leg was negative for DVT. His most recent d-dimer from today is 0.96 relatively stable, his ESR is 50, his inflammatory markers were sent, and his LDH is up to 1278, his CRP is 2.0. Patient fatigue, but denies any acute distress, he be breathing comfortably. Objective - Vital Signs Vital signs: Vital Signs Temp 98.4 F 06/09/21 13:45 Pulse 78 06/09/21 13:45 Resp 17 06/09/21 13:45 BP 160/78 06/09/21 13:45 Pulse Ox 90 L 06/09/21 13:48 Intake & Output 06/08/21 06/09/21 06/09/21 18:59 06:59 18:59 Intake Total 50 400 50 Output Total 100 Balance 50 300 50 Weight 124.738 kg Intake: Intake, IV Titration 50 50 Amount cefTRIAXone 1 gm In 50 50 Sodium Chloride 0.9% 50 ml @ 100 mls/hr IVPB Q24HR [facility] Rx#:[id number] Oral 400 Output: Urine 100 Other: # Voids 3 - Exam GENERAL EXAM: Lethargic but breathing comfortable, 86-year-old white male, on 11 L of oxygen pulse ox of 90% comfortable in no apparent distress. HEAD: Normocephalic/atraumatic. EYES: Normal reaction of pupils, equal size. Conjunctiva pink, sclera white. NOSE: Clear with pink turbinates. THROAT: No erythema or exudates. NECK: No masses, no JVD, no thyroid enlargement, no adenopathy. CHEST: No chest wall deformity. Symmetrical expansion. LUNGS: Equal air entry with basilar crackles CVS: Regular rate and rhythm, normal S1 and S2, no gallops, no murmurs, no rubs ABDOMEN: Soft, nontender. No hepatosplenomegaly, normal bowel sounds, no guarding or rigidity. EXTREMITIES: No clubbing, 1+ edema in the right lower extremity no cyanosis, 2+ pulses and upper and lower extremities. MUSCULOSKELETAL: Muscle strength and tone normal. SPINE: No scoliosis or deformity SKIN: No rashes CENTRAL NERVOUS SYSTEM: Alert and oriented -3. No focal deficits, tone is normal in all 4 extremities. PSYCHIATRIC: Alert and oriented -3. Appropriate affect. Intact judgment and insight. - Labs CBC & Chem 7: 06/06/21 07:53 06/06/21 07:53 Labs: Abnormal Lab Results - Last 24 Hours (Table) 06/08/21 06/09/21 06/09/21 Range/Units 20:11 10:52 10:52 ESR 50 H (0-15) mm/hr D-Dimer 0.96 H (<0.60) mg/L FEU POC Glucose (mg/dL) 176 H (75-99) mg/dL Lactate Dehydrogenase (313-618) U/L C-Reactive Protein (<1.0) mg/dL 06/09/21 06/09/21 06/09/21 Range/Units 10:52 11:38 16:14 ESR (0-15) mm/hr D-Dimer (<0.60) mg/L FEU POC Glucose (mg/dL) 116 H 254 H (75-99) mg/dL Lactate Dehydrogenase 1278 H (313-618) U/L C-Reactive Protein 2.0 H (<1.0) mg/dL Assessment and Plan Plan: Assessment: #1. Acute hypoxic respiratory failure, related to acute COVID-19 pneumonia, onset of symptoms was 2 weeks prior to presentation, patient is non-vaccinated against COVID 19, outside the window for Remdesivir, and will be treated supportively with a combination of anticoagulation, Decadron and multivitamins #2. 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 Increased LFTs, related to viral pneumonia #4. Hypertension #5. Hyperlipidemia #6. Obstructive sleep apnea #7. Diabetes mellitus type 2 #8. Obesity with obesity hypoventilation syndrome #9. Chronic kidney disease stage IIIB #10. History of right lower extremity DVT not on any chronic anticoagulation Plan: Continue Decadron Continue Lovenox and the Lovenox dose was increased to 100 mg twice daily Renal function remains impaired, and possibility of acute PE cannot be completely excluded Continue supportive treatment Inflammatory markers have been noted, and are noted to be increasing Today's chest x-ray has been reviewed showing worsening bibasilar opacities Overall prognosis is guarded Continue supportive treatment I performed a history & physical examination of the patient and discussed their management with my nurse practitioner, Jennifer Cespedes. I reviewed the nurse practitioner's note and agree with the documented findings and plan of care. Lung sounds are positive for diminished breath sounds throughout the lung vázquez. The findings and the impression was discussed with the patient. I attest to the documentation by the nurse practitioner. Time with Patient: Less than 30
[2021-06-09 21:41] LABS: Glucose,Whole Blood 264 mg/dL (75-99)
[2021-06-09] MEDS: INSULIN DETEMIR (LEVEMIR) 100 UNIT/ML SYR SQ SCH (22:24)
[2021-06-09] MEDS: ATORVASTATIN 20 MG TAB PO SCH (22:25)
[2021-06-09] MEDS: DEXAMETHASONE SOD PHOSPHATE 10 MG/ML 1 ML VIAL IVP SCH (22:25)
[2021-06-10 07:04] LABS: Glucose,Whole Blood 131 mg/dL (75-99)
[2021-06-10] MEDS: ENOXAPARIN 100 MG/ML SYRINGE SQ SCH (08:29)
[2021-06-10] MEDS: ZINC SULFATE 220 MG CAP PO SCH (08:29)
[2021-06-10] MEDS: TAMSULOSIN 0.4 MG CAP.ER.24H PO SCH ×2 (08:29→16:13)
[2021-06-10] MEDS: ASCORBIC ACID 500 MG TAB PO SCH (08:29)
[2021-06-10] MEDS: guaiFENesin 600 MG TABLET.ER PO SCH ×2 (08:29→21:13)
[2021-06-10] MEDS: INSULIN ASPART (NovoLOG) 100 UNIT/ML VIAL SQ SCH ×7 (08:29→21:11)
[2021-06-10] MEDS: AZITHROMYCIN 1,200 MG/30 ML BOTTLE PO SCH (08:30)
[2021-06-10] MEDS: PANTOPRAZOLE 40 MG TABLET PO SCH (08:30)
[2021-06-10] MEDS: CHOLECALCIFEROL 25 MCG (1000 IU) TABLET PO SCH (08:30)
[2021-06-10] MEDS: METOPROLOL TARTRATE 25 MG TAB PO SCH ×2 (08:30→21:13)
[2021-06-10] MEDS: DEXAMETHASONE SOD PHOSPHATE 10 MG/ML 1 ML VIAL IVP SCH (08:32)
[2021-06-10 11:49] LABS: Glucose,Whole Blood 134 mg/dL (75-99)
--- NOTE | 2021-06-10 15:18 | P.PN ---
Subjective Progress Note Date: 06/10/21 This is an 86-year-old male patient of Dr. Larkin with past medical history of hypertension, hypertensive cardiovascular disease, hyperlipidemia, gastroesophageal reflux disease, diabetes mellitus type 2, obesity with obstructive sleep apnea and obesity hypoventilation syndrome, generalized osteo arthritis, chronic kidney disease stage IIIb, chronic DVT right lower extremity, patient had onset of symptoms 2 weeks ago with continued worsening of cough and shortness of breath. He has phlegm production. He has a little bit of chest pain. Patient complains of weakness and his had 3 falls at home. He presented to [facility] emergency center for evaluation found to be afebrile, heart rate 97, blood pressure 120/68, pulse ox 93%. EKG was a sinus rhythm with no acute ST changes. Chest x-ray was positive for Covid pneumonia. WBC 3.8, hemoglobin 12.4, platelet count 164. Sodium 133, BUN 21 creatinine 1.73. Blood sugar 237. ProBNP 981. Troponin 0.030. Lactic acid 1.0. Magnesium 1.5 and was replaced in the emergency center. Venous Doppler of the bilateral lower exam is negative for DVT. 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 [facility] floor, started on Lovenox, dexamethasone, vitamin supplements and consult with pulmonary medicine. patient examined bedside sitting comfortably in bed. Is currently saturating at 93% on room air otherwise vitals are stable afebrile pulse 67 respiratory 8. 19 blood pressure 116/66 magnesium has improved to 2.1 liver enzymes continues to remain elevated proBNP is normal. Patient has detailed workup of liver enzymes in the previous admission and was seen by Dr. Purcell. Fat ty hepatic infiltration was noted on hepatic ultrasound.. Continue patient on Decadron, Lovenox and supplementation. Venous Doppler suggestive of chronic DVT involving the right leg. Patient has no documentation of previous DVT and would benefit from Eliquis on discharge. will increase Lovenox to 100 subcu twice a day. His pro calcitonin was elevated he should patient on Rocephin and azithro mycin for possible overlying for bacterial infection Patient examined lying comfortably in bed. Patient endorses yellowish phlegm production and SOB, oxygen saturation mentained on 1 Litre. Continue decadon, vit supplement and lovenox with plan to initiate eliquis on discharge for chronic DVT. PT OT evaluation with possible transfer to [facility] as patient had 2 falls prior to admission . He has significant weakness from COVID Pneumonia and would benefot from rehab 06/08 patient examined lying comfortably in bed. He is coughing white phlegm associated with congestion denies any shortness of breath. Patient continues to remain on 2 L oxygen saturating 90-91% blood pressure 147/78, LDH 8:30 8B1.7 continues to improve. Blood sugar ranging from 109 to 325. Continue Decadron, vitamin supplements. Lovenox for this issue Eliquis for 1 month. patient is significantly weak and is unable to get a his activities at this point. PTOT has recommended subacute rehab. I feel patient would benefit for a few days and we have before he is discharged to his home setting. Patient will complete Augmentin twice a day for 7 days. Mucinex 1200 twice a day Tessalon Perles added at 100 mg 3 times. Patient's elected to send patient to rehab who would like to take patient home. PT OT has recommended subacute rehab due to increased weakness. Will arrange patient's oxygen with possible discharge to home with home physical therapy as per family request 06/09 patient is lying in bed appears tired and weak. Her earlier today and nurse called as patient's oxygen requirement increased from 1 L to 10 L. Patient denies any worsening shortness breath or cough or dizziness. Chest x-r ay was obtained as suggest bilateral radiculo nodular opacities suggestive of progression of Covid pneumonia. Patient is currently maintaining oxygenation 92% on 10 L of oxygen temp is 97.6 pulse 84 respiratory rate 17. Labs show worsening of information 3 markers suggesting increase of energy and she increase in CRP. No family updated on the prognosis. Await recommendation from pulmonary. Patient would benefit from Baricitinib infusion. Pulmonary recommendations awaiting 06/10 the patient examined bedside. He is currently frail looking short of breath at rest. Patient's afebrile pulse 73 that started radiating blood pressure 138/78 SIGNIFICANT 90% on 15 L high flow with nonrebreather at rest to 12,078, CRP increased to 2. Procalcitonin is normal. Patient is currently on supportive care. Discussion with pulmonary for possibility of baritinib patient has acutely decompensated. Patient's prognosis is poor REVIEW OF SYSTEMS Constitutional: No fever, no chills, no night sweats. No weight change. Reports weakness, Reports fatigue. EENT: No headache. No blurred vision or double vision, no loss of vision. Reports loss of Hearing. No nasal drainage or congestion. No epistaxis. No sore throat. Lungs: Reports worsening shortness of breath, reports cough, reports sputum production. No wheezing. Cardiovascular: No chest pain, no lower extremity edema. No palpitations. No paroxysmal nocturnal dyspnea. No orthopnea. No lightheadedness or dizziness. No syncopal episodes. Abdominal: Denies abdominal pain. No nausea, vomiting. No diarrhea. No constipation. No bloody or tarry stools.. No loss of appetite. Genitourinary: No dysuria, increased frequency, urgency. No urinary retention. Musculoskeletal: No myalgias. Reports muscle weakness, Reports gait dysfunction, Reports falls. No back pain. No neck pain. Integumentary: No wounds, no lesions. No rash or pruritus. Neurologic: No aphasia. No facial droop. No change in mentation. No head injury. No headache. No paralysis. No paresthesia. Psychiatric: No depression. No anxiety. Endocrine: No abnormal blood sugars. PHYSICAL EXAMINATION Gen: This is an 86-year-old male. Patient is resting in bed and appears to be in no acute distress. He is currently on oxygen therapy at 1 L nasal cannula. HEENT: Head is atraumatic, normocephalic. Pupils equal, round. Sclerae is anicteric. NECK: Supple. No JVD. No lymphadenopathy. No thyromegaly. LUNGS: Diminished with bilateral crackles. No intercostal retractions. HEART: Regular rate and rhythm. No murmur. ABDOMEN: Soft. Bowel sounds are present. No masses. No tenderness. Umbilical hernia EXTREMITIES: No pedal edema. No calf tenderness. Dorsalis pedis palpable bilaterally. NEUROLOGICAL: Patient is awake, alert and oriented x3. Cranial nerves 2 through 12 are grossly intact. ASSESSMENT AND PLAN 1. Acute hypoxic respiratory failure secondary to COVID-19 pneumonia with bacterial coinfection his pro calcitonin is elevated. Continue Rocephin and azithromycin continued on dexamethasone, Lovenox, vitamin supplements, consult with pulmonary medicine, oxygen therapy. Mucinex 1200 mg twice daily. Tessalon Perles 100 mg 3 times daily dexamethasone increased to 6 mg IV twice a day hold pulmonary recommendation on possibleBaricitinib and since inflammation markers are getting high 2. Acute kidney injury secondary to ATN on Chronic kidney disease stage IIIb. Patient is status post 1.5 L of IV fluid. Recheck kidney function in the morning. 3. acute on chronic Generalized weakness with multiple falls PT and OT consults added recommend CARL[facility]. Patient is requesting discharging patient home 4. Chronic DVT of right leg. Eliquis increased to 100 subcu twice a day with plan to discharge patient on Eliquis 5. Hypertension, hypertensive cardiovascular disease. Blood pressure is on the low side, continue lisinopril 2.5 mg daily with parameters, continue metoprolol 25 twice a day 6. Diabetes mellitus type 2 uncontrolled hyperglycemia. Continue NovoLog scale before meals and at bedtime, Levemir 35 units at bedtime. 7. Obesity with obstructive sleep apnea and obesity hypoventilation syndrome. Patient may have CPAP brought from home. 8. Gastroesophageal reflux disease and GI prophylaxis. Continue omeprazole or equivalent. 9. Benign prostatic hypertrophy. Continue Flomax 0.4 mg twice daily. 10. Hyperlipidemia. Continue atorvastatin 20 mg daily at bedtime 11. DVT prophylaxis. Lovenox 100 mg subcu BID Objective - Vital Signs Vital signs: Vital Signs Temp 97.5 F L 06/10/21 09:20 Pulse 73 06/10/21 09:20 Resp 18 06/10/21 09:20 BP 138/74 06/10/21 09:20 Pulse Ox 90 L 06/10/21 09:20 Intake & Output 06/09/21 06/10/21 06/10/21 18:59 06:59 18:59 Intake Total 50 100 Output Total 1999 1599 Balance -1949 Weight 124.738 kg Intake: Intake, IV Titration 50 Amount cefTRIAXone 1 gm In 50 Sodium Chloride 0.9% 50 ml @ 100 mls/hr IVPB Q24HR [facility] Rx#:[id number] Oral 100 Output: Urine 1999 1599 Other: Voiding Method External Catheter - Labs CBC & Chem 7: 06/06/21 07:53 06/06/21 07:53 Labs: Abnormal Lab Results - Last 24 Hours (Table) 06/07/21 06/09/21 06/09/21 Range/Units 08:40 10:52 10:52 ESR 50 H (0-15) mm/hr D-Dimer 0.96 H (<0.60) mg/L FEU POC Glucose (mg/dL) (75-99) mg/dL Ferritin 517.0 H (22.0-322.0) ng/mL Lactate Dehydrogenase (313-618) U/L C-Reactive Protein (<1.0) mg/dL 06/09/21 06/09/21 06/09/21 Range/Units 10:52 11:38 16:14 ESR (0-15) mm/hr D-Dimer (<0.60) mg/L FEU POC Glucose (mg/dL) 116 H 254 H (75-99) mg/dL Ferritin (22.0-322.0) ng/mL Lactate Dehydrogenase 1278 H (313-618) U/L C-Reactive Protein 2.0 H (<1.0) mg/dL 06/09/21 06/10/21 Range/Units 21:40 06:57 ESR (0-15) mm/hr D-Dimer (<0.60) mg/L FEU POC Glucose (mg/dL) 264 H 131 H (75-99) mg/dL Ferritin (22.0-322.0) ng/mL Lactate Dehydrogenase (313-618) U/L C-Reactive Protein (<1.0) mg/dL
[2021-06-10] MEDS: BARICITINIB 2 MG TABLET PO SCH (16:12)
--- NOTE | 2021-06-10 16:27 | XR ---
EXAMINATION TYPE: XR chest 1V portable DATE OF EXAM: 06/10/2021 COMPARISON: Yesterday HISTORY: Hypoxemia TECHNIQUE: Single view FINDINGS: There is coarse interstitial density in the lungs. There is mild pulmonary congestion. Bony thorax is intact. Heart appears enlarged. IMPRESSION: There is evidence for some mild heart failure that is the same or slightly worse than yes terday.
[2021-06-10 16:45] LABS: Glucose,Whole Blood 224 mg/dL (75-99)
[2021-06-10] MEDS ORDERED: FUROSEMIDE 10 MG/ML 4 ML VIAL IV STA (17:32)
--- NOTE | 2021-06-10 17:32 | P.PN ---
Subjective Progress Note Date: 06/10/21 Principal diagnosis: COVID-19 pneumonia A 86-year-old white male patient with past medical history of hypertension, hyperlipidemia, diabetes mellitus type 2, obesity, obstructive sleep apnea, generalized osteoarthritis, chronic kidney disease stage IIIB, chronic DVT in the right lower extremity will present to the emergency department on 06/04/2021 for evaluation of worsening dyspnea. Patient complains of weakness and patient had 3 falls at home, he states his been sick for about 2 weeks, has been nauseous, vomiting, he has been freezing and then getting hot and sweating. His symptoms progressed to worsening dyspnea, cough. He is not vaccinated against COVID-19. Patient tested positive for COVID-19 on outpatient basis on 06/03/2021. The emergency department she was found to be hypoxic and satting 88% on room air. Chest x-ray showed cardiomegaly, retrocardiac infiltrate and some mild interstitial infiltrate at the right base. His labs show white blood cell count of 3.8, hemoglobin of 12.4, d-dimer today 0.9, sodium is 133, potassium is 3.8, CO2 is 24, BUN is 21, creatinine is 1.73, glucose is 237, lactic acid is 1.0, calcium is 8.2, magnesium is 1.5, AST 65, ALT is 55, alkaline phosphatase is 132, proBNP is 981, troponin was 0.031. Patient was started on Decadron, he is on Lovenox 100 mg daily, lower extremity Dopplers showed chronic DVT in the right lower extremity, negative DVT in the left lower extremity. EKgG shows normal sinus rhythm. Currently only on 1 L of oxygen his pulse ox is 95%. The patient is seen today 06/06/2021 in follow-up on the regular medical floor. He is currently resting comfortably in bed. Awake and alert in no acute distress. He is maintaining O2 saturations in the 90s and 2 L/m per nasal cannula. Dopplers of lower extremities revealed chronic DVT in the right leg. 0.9 normal saline at 20 ML's per hour. White count 3.8. Hemoglobin 12.8. Sodium 138. Potassium 5.2. Creatinine 1.26. AST 74. ALT 55. He is continued on Decadron, Lovenox, vitamin supplements. Antibiotics in the form of ceftriaxone and azithromycin. The patient is seen today 06/07/2021 in follow-up on the regular medical floor. He is currently resting comfortably in bed. Awake and alert in no acute distress. Feeling about the same today as compared to yesterday. He continues to maintain O2 saturations in the 90s on 2 L/m per nasal cannula. She's been afebrile. Hemodynamically stable. D-dimer 0.82. LDH 838. C-reactive protein 1.7. Glucose 195. He remains on antibiotics in the form of ceftriaxone and azithromycin. Continued on Lovenox, Decadron, vitamin supplements. The patient is seen today 06/08/2021 in follow-up on the regular medical floor. He is currently sitting up in bed. Awake and alert in no acute distress. Maintaining O2 saturations in the 90s on 2 L/m per nasal cannula. Home oxygen has been arranged for him. He is continued on Decadron, Lovenox, vitamin supplements. Antibiotics in the form of azithromycin. Still positive coronavirus by PCR. Blood glucose 153. Plan is for discharge to [facility] once a bed is available The patient is seen today 06/10/2021 in follow-up on the regular medical floor. He is currently resting in bed. His oxygen requirements have gone up and he is now on 15 L high flow plus a nonrebreather mask. Xx-ray reveals mild pulmonary vascular congestion. pro calcitonin 0.07. D-dimer 0.60. Blood glucose 224. He is continued on Decadron, Lovenox, vitamin supplements. Objective - Vital Signs Vital signs: Vital Signs Temp 98.7 F 06/10/21 13:21 Pulse 82 06/10/21 13:21 Resp 18 06/10/21 13:21 BP 114/66 06/10/21 13:21 Pulse Ox 92 L 06/10/21 15:52 Intake & Output 06/09/21 06/10/21 06/10/21 18:59 06:59 18:59 Intake Total 50 100 50 Output Total 1999 1599 Balance -1949 -1499 50 Weight 124.738 kg Intake: Intake, IV Titration 50 50 Amount cefTRIAXone 1 gm In 50 50 Sodium Chloride 0.9% 50 ml @ 100 mls/hr IVPB Q24HR [facility] Rx#:[id number] Oral 100 Output: Urine 1999 1599 Other: Voiding Method External Catheter - Exam GENERAL EXAM: Alert, 86-year-old male patient, resting comfortably in bed, currently up to 15 L high flow nasal cannula as a nonrebreather mask. HEAD: Normocephalic/atraumatic. EYES: Normal reaction of pupils, equal size. Conjunctiva pink, sclera white. NOSE: Clear with pink turbinates. THROAT: No erythema or exudates. NECK: No masses, no JVD, no thyroid enlargement, no adenopathy. CHEST: No chest wall deformity. Symmetrical expansion. LUNGS: Equal air entry with bibasilar crackles CVS: Regular rate and rhythm, normal S1 and S2, no gallops, no murmurs, no rubs ABDOMEN: Soft, nontender. No hepatosplenomegaly, normal bowel sounds, no guarding or rigidity. EXTREMITIES: No clubbing, no edema, no cyanosis, 2+ pulses and upper and lower extremities. MUSCULOSKELETAL: Muscle strength and tone normal. SPINE: No scoliosis or deformity SKIN: No rashes CENTRAL NERVOUS SYSTEM: No focal deficits, tone is normal in all 4 extremities. PSYCHIATRIC: Alert and oriented -3. Appropriate affect. Intact judgment and insight. - Labs CBC & Chem 7: 06/06/21 07:53 06/06/21 07:53 Labs: Abnormal Lab Results - Last 24 Hours (Table) 06/07/21 06/09/21 06/10/21 Range/Units 08:40 21:40 06:57 D-Dimer (<0.60) mg/L FEU POC Glucose (mg/dL) 264 H 131 H (75-99) mg/dL Ferritin 517.0 H (22.0-322.0) ng/mL 06/10/21 06/10/21 06/10/21 Range/Units 11:46 13:56 16:41 D-Dimer 0.60 H (<0.60) mg/L FEU POC Glucose (mg/dL) 134 H 224 H (75-99) mg/dL Ferritin (22.0-322.0) ng/mL Assessment and Plan Assessment: 1 Acute hypoxic respiratory failure, related to acute COVID-19 pneumonia, onset of symptoms was 2 weeks prior to presentation, patient is non-vaccinated against COVID 19, outside the window for Remdesivir, and will be treated supportively with a combination of anticoagulation, Decadron and multivitamins. His oxygen requirements have increased significantly. Currently on 15 L high flow nasal cannula plus a nonrebreather mask. We will initiate Baricitinib. 2 Elevated d-dimer, lower extremity Doppler showed a 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 Pratt Chest x-ray and labs reviewed Up to 15 L high flow + nonrebreather mask Add Baricitinib Give Lasix 40 mg IVP 1 Continue Decadron, Lovenox, vitamin supplements We will continue to follow I, the cosigning physician, performed a history & physical examination of the patient. Lungs sounds with bibasilar crackles. Maintaining good O2 saturations in the 90s on 15 L/m per nasal cannula plus a nonrebreather mask. I discussed the assessment and plan of care with my nurse practitioner, Renetta Brown. I attest to the above note as dictated by her.
[2021-06-10 20:46] LABS: Glucose,Whole Blood 341 mg/dL (75-99)
[2021-06-10] MEDS: INSULIN DETEMIR (LEVEMIR) 100 UNIT/ML SYR SQ SCH (21:11)
[2021-06-10] MEDS: ATORVASTATIN 20 MG TAB PO SCH (21:13)
[2021-06-10 23:09] LABS: ABG Base Excess 12.2 mmol/L; ABG HCO3 35 mmol/L (21-25); ABG Oxygen Saturation 91.4 % (94-97); ABG PCO2 40 mmHg (35-45); ABG PH 7.55 (7.35-7.45); ABG TCO2 36 mmol/L (19-24); Allen Test Performed? Yes
[2021-06-10 23:20] LABS: ABG PO2 56 mmHg (83-108)
[2021-06-11 07:11] LABS: Glucose,Whole Blood 145 mg/dL (75-99)
[2021-06-11] MEDS: DEXAMETHASONE SOD PHOSPHATE 10 MG/ML 1 ML VIAL IVP SCH (08:49)
[2021-06-11] MEDS: ASCORBIC ACID 500 MG TAB PO SCH (09:20)
[2021-06-11] MEDS: guaiFENesin 600 MG TABLET.ER PO SCH ×2 (09:20→21:18)
[2021-06-11] MEDS: ENOXAPARIN 40 MG/0.4 ML SYRINGE SQ SCH (09:21)
[2021-06-11] MEDS: TAMSULOSIN 0.4 MG CAP.ER.24H PO SCH ×2 (09:21→17:10)
[2021-06-11] MEDS: CHOLECALCIFEROL 25 MCG (1000 IU) TABLET PO SCH (09:22)
[2021-06-11] MEDS: PANTOPRAZOLE 40 MG TABLET PO SCH (09:22)
[2021-06-11] MEDS: METOPROLOL TARTRATE 25 MG TAB PO SCH ×2 (09:22→21:18)
[2021-06-11] MEDS: ZINC SULFATE 220 MG CAP PO SCH (09:22)
[2021-06-11] MEDS: INSULIN ASPART (NovoLOG) 100 UNIT/ML VIAL SQ SCH ×7 (09:23→21:34)
[2021-06-11] MEDS: INSULIN DETEMIR (LEVEMIR) 100 UNIT/ML SYR SQ SCH ×2 (09:24→21:35)
[2021-06-11 10:52] LABS: Basophils # (A) 0.05 X 10*3/uL (0.00-0.10); Basophils % (A) 0.4 %; Eosinophils # (A) 0 X 10*3/uL (0.04-0.35); Eosinophils % (A) 0 %; HCT 40.6 % (39.6-50.0); Lymphocytes # (A) 1.95 X 10*3/uL (0.90-5.00); Lymphocytes % (A) 15.6 %; MCH 30.7 pg (27.0-32.0); MCV 95.8 fL (80.0-97.0); Monocytes # (A) 0.34 X 10*3/uL (0.20-1.00); Monocytes % (A) 2.7 %; Neutrophils # (A) 9.59 X 10*3/uL (1.80-7.70); Neutrophils % (A) 76.7 %; Platelet Count 304 X 10*3/uL (140-440); RBC 4.24 X 10*6/uL (4.40-5.60); RDW 12.9 % (11.5-14.5)
[2021-06-11 11:10] LABS: African American GFR (CKD) 56.9 (60.0-200.0); Albumin 3.5 g/dL (3.8-4.9); Albumin/Globulin Ratio 1.3 (1.60-3.17); Anion Gap 14.8 mmol/L (10.00-18.00); Blood Urea Nitrogen 40.3 mg/dL (9.0-27.0); Calcium 9.3 mg/dL (8.7-10.3); Carbon Dioxide 30.2 mmol/L (20.0-27.5); Globulin 2.7 g/dL (1.6-3.3); Non-African American GFR(CKD) 49.1 (60.0-200.0); Potassium 4.2 mmol/L (3.5-5.5); Total Bilirubin 0.5 mg/dL (0.30-1.20); Total Protein 6.2 g/dL (6.2-8.2)
[2021-06-11 11:51] LABS: Glucose,Whole Blood 299 mg/dL (75-99)
--- NOTE | 2021-06-11 13:45 | P.PN ---
Subjective Progress Note Date: 06/11/21 Principal diagnosis: Dyspnea On 06/09/2021 patient seen in follow-up on medical surgical floor. He was supposed to be discharged home today, he was doing well, he was only requiring minimal supplemental oxygen however patient became progressively hypoxic, and he is currently on 11 L of oxygen pulse ox is 88-90%, afebrile, chest x-ray was repeated showed cardiomegaly and chronic parenchymal changes with worsening bibasilar reticulonodular opacities, and the findings were consistent with COVID-19 infection progression. He was given a dose of Lasix for worsening respiratory status, his Decadron dose was increased to 6 mg twice daily, and his Lovenox has been increased to 100 mg twice daily per [facility] provider, he is also on azithromycin and Tessalon Perles. 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 Left leg was negative for DVT. His most recent d-dimer from today is 0.96 relatively stable, his ESR is 50, his inflammatory markers were sent, and his LDH is up to 1278, his CRP is 2.0. Patient fatigue, but denies any acute distress, he be breathing comfortably. On 06/11/2021 patient seen in follow-up on medical surgical floor. He is currently on BiPAP support with pressures of 12 and 6 and FiO2 of 100%, and his pulse ox is ranging between 88-90%, he is breathing fairly comfortably, his minute ventilation is 17. However patient reports off the BiPAP mask frequently. he will be tried on high flow nasal cannula or irritable. Patient was noted to be rapidly desaturating when he was being taken off even briefly for a few seconds off the BiPAP. Does have a cough, nonproductive, his been afebrile, blood pressure is been stable, started on Baricitinib yesterday, and he continues on Decadron 6 mg daily. His Lovenox dose was cut back to prophylactic dose 40 mg daily, his right lower extremity just showed chronic DVT, no acute DVT. Patient's renal profile is impaired and patient is unable to have CT angiogram to rule out possibility of PE. Follow-up d-dimer is 0.96, relatively stable, his LDH has been increasing and 2 days ago on 06/09/2021 it was up to 1278, and CRP was 2.0, Procan SR level was negative at 0.07. In addition patient received a dose of IV Lasix yesterday, and he is in negative fluid balance at 2.5 L over the last 24 hours. No lower extremity edema was noted, he still has extensive coarse bibasilar crackles at bilateral bases. Objective - Vital Signs Vital signs: Vital Signs Temp 97.6 F 06/11/21 10:00 Pulse 90 06/11/21 10:00 Resp 27 H 06/11/21 10:00 BP 135/78 06/11/21 10:00 Pulse Ox 89 L 06/11/21 10:00 Intake & Output 06/10/21 06/11/21 06/11/21 18:59 06:59 18:59 Intake Total 50 Output Total 2600 Balance 50 -2600 Intake: Intake, IV Titration 50 Amount cefTRIAXone 1 gm In 50 Sodium Chloride 0.9% 50 ml @ 100 mls/hr IVPB Q24HR [facility] Rx#:[id number] Output: Urine 2600 Other: Voiding Method External Catheter External Catheter - Exam GENERAL EXAM: Patient looks more awake on today's exam, however he is very hard of hearing and difficult to communicate with but breathing comfortable, 86-year-old white male, BiPAP support with pressures of 12 and 6 on FiO2 100%, with a pulse ox of 88-89% comfortable in no apparent distress. HEAD: Normocephalic/atraumatic. EYES: Normal reaction of pupils, equal size. Conjunctiva pink, sclera white. NOSE: Clear with pink turbinates. THROAT: No erythema or exudates. NECK: No masses, no JVD, no thyroid enlargement, no adenopathy. CHEST: No chest wall deformity. Symmetrical expansion. LUNGS: Equal air entry with basilar crackles CVS: Regular rate and rhythm, normal S1 and S2, no gallops, no murmurs, no rubs ABDOMEN: Soft, nontender. No hepatosplenomegaly, normal bowel sounds, no guarding or rigidity. EXTREMITIES: No clubbing, edema in the right lower extremity no cyanosis, 2+ pulses and upper and lower extremities. MUSCULOSKELETAL: Muscle strength and tone normal. SPINE: No scoliosis or deformity SKIN: No rashes CENTRAL NERVOUS SYSTEM: Alert and oriented -3. No focal deficits, tone is normal in all 4 extremities. PSYCHIATRIC: Alert and oriented -3. Appropriate affect. Intact judgment and insight. - Labs CBC & Chem 7: 06/11/21 06:17 06/11/21 06:17 Labs: Abnormal Lab Results - Last 24 Hours (Table) 06/10/21 06/10/21 06/10/21 Range/Units 13:56 16:41 20:45 WBC (4.50-10.00) X 10*3/uL RBC (4.40-5.60) X 10*6/uL Absolute Nucleated RBC (0.00-0.00) X 10*3/uL Immature Gran # (0.00-0.04) X 10*3/uL Neutrophils # (1.80-7.70) X 10*3/uL Eosinophils # (0.04-0.35) X 10*3/uL NRBC/100 WBC Diff (0.0-0.0) /100 WBCS D-Dimer 0.60 H (<0.60) mg/L FEU ABG pH (7.35-7.45) ABG pO2 (83-108) mmHg ABG HCO3 (21-25) mmol/L ABG Total CO2 (19-24) mmol/L ABG O2 Saturation (94-97) % Chloride (96-109) mmol/L Carbon Dioxide (20.0-27.5) mmol/L BUN (9.0-27.0) mg/dL Est GFR (CKD-EPI)AfAm (60.0-200.0) Est GFR (CKD-EPI)NonAf (60.0-200.0) BUN/Creatinine Ratio (12.00-20.00) Ratio Glucose (70-110) mg/dL POC Glucose (mg/dL) 224 H 341 H (75-99) mg/dL AST (14-35) U/L ALT (10-49) U/L Albumin (3.8-4.9) g/dL Albumin/Globulin Ratio (1.60-3.17) g/dL 06/10/21 06/11/21 06/11/21 Range/Units 23:03 06:17 06:17 WBC 12.50 H (4.50-10.00) X 10*3/uL RBC 4.24 L (4.40-5.60) X 10*6/uL Absolute Nucleated RBC 0.05 H (0.00-0.00) X 10*3/uL Immature Gran # 0.57 H (0.00-0.04) X 10*3/uL Neutrophils # 9.59 H (1.80-7.70) X 10*3/uL Eosinophils # 0 L (0.04-0.35) X 10*3/uL NRBC/100 WBC Diff 0.4 H (0.0-0.0) /100 WBCS D-Dimer (<0.60) mg/L FEU ABG pH 7.55 H (7.35-7.45) ABG pO2 56 L* (83-108) mmHg ABG HCO3 35 H (21-25) mmol/L ABG Total CO2 36 H (19-24) mmol/L ABG O2 Saturation 91.4 L (94-97) % Chloride 94 L (96-109) mmol/L Carbon Dioxide 30.2 H (20.0-27.5) mmol/L BUN 40.3 H (9.0-27.0) mg/dL Est GFR (CKD-EPI)AfAm 56.9 L (60.0-200.0) Est GFR (CKD-EPI)NonAf 49.1 L (60.0-200.0) BUN/Creatinine Ratio 31.00 H (12.00-20.00) Ratio Glucose 139 H (70-110) mg/dL POC Glucose (mg/dL) (75-99) mg/dL AST 51 H (14-35) U/L ALT 65 H (10-49) U/L Albumin 3.5 L (3.8-4.9) g/dL Albumin/Globulin Ratio 1.30 L (1.60-3.17) g/dL 06/11/21 06/11/21 06/11/21 Range/Units 06:17 07:09 11:50 WBC (4.50-10.00) X 10*3/uL RBC (4.40-5.60) X 10*6/uL Absolute Nucleated RBC (0.00-0.00) X 10*3/uL Immature Gran # (0.00-0.04) X 10*3/uL Neutrophils # (1.80-7.70) X 10*3/uL Eosinophils # (0.04-0.35) X 10*3/uL NRBC/100 WBC Diff (0.0-0.0) /100 WBCS D-Dimer 0.69 H (<0.60) mg/L FEU ABG pH (7.35-7.45) ABG pO2 (83-108) mmHg ABG HCO3 (21-25) mmol/L ABG Total CO2 (19-24) mmol/L ABG O2 Saturation (94-97) % Chloride (96-109) mmol/L Carbon Dioxide (20.0-27.5) mmol/L BUN (9.0-27.0) mg/dL Est GFR (CKD-EPI)AfAm (60.0-200.0) Est GFR (CKD-EPI)NonAf (60.0-200.0) BUN/Creatinine Ratio (12.00-20.00) Ratio Glucose (70-110) mg/dL POC Glucose (mg/dL) 145 H 299 H (75-99) mg/dL AST (14-35) U/L ALT (10-49) U/L Albumin (3.8-4.9) g/dL Albumin/Globulin Ratio (1.60-3.17) g/dL Assessment and Plan Plan: Assessment: #1. Acute hypoxic respiratory failure, related to acute COVID-19 pneumonia, onset of symptoms was 2 weeks prior to presentation, patient is non-vaccinated against COVID 19, outside the window for Remdesivir, and will be treated supportively with a combination of anticoagulation, Decadron and multivitamins. His hypoxia has progressed, patient was started on Baricitinib on 06/10/2021 #2. Elevated d-dimer, lower extremity Doppler showed a chronic DVT in the right lower extremity, therapeutic doses of Lovenox or cut back and patient is currently back on prophylactic Lovenox 40 #3. Increased LFTs, related to viral pneumonia #4. Hypertension #5. Hyperlipidemia #6. Obstructive sleep apnea #7. Diabetes mellitus type 2 #8. Obesity with obesity hypoventilation syndrome #9. Chronic kidney disease stage IIIB #10. History of right lower extremity DVT not on any chronic anticoagulation Plan: We'll try the patient on Airvo, patient is not tolerating BiPAP support very well, frequently removes the mask Titrate FiO2 to keep O2 saturation sat 88% and above Clinically patient looks more awake, is very hard of hearing, but more interactive Does not appear to be in any acute distress We'll obtain a set of inflammatory markers tomorrow, basic labs, follow-up chest x-ray tomorrow Continue Baricitinib, decadron, and lovenox Recommend addressing code status continue supportive treament I performed a history & physical examination of the patient and discussed their management with my nurse practitioner, Jennifer Cespedes. I reviewed the nurse practitioner's note and agree with the documented findings and plan of care. Lung sounds are positive for diminished breath sounds throughout the lung vázquez. The findings and the impression was discussed with the patient. I attest to the documentation by the nurse practitioner. Time with Patient: Less than 30
--- NOTE | 2021-06-11 16:39 | P.PN ---
Subjective Progress Note Date: 06/11/21 This is an 86-year-old male patient of Dr. Larkin with past medical history of hypertension, hypertensive cardiovascular disease, hyperlipidemia, gastroesophageal reflux disease, diabetes mellitus type 2, obesity with obstructive sleep apnea and obesity hypoventilation syndrome, generalized osteo arthritis, chronic kidney disease stage IIIb, chronic DVT right lower extremity, patient had onset of symptoms 2 weeks ago with continued worsening of cough and shortness of breath. He has phlegm production. He has a little bit of chest pain. Patient complains of weakness and his had 3 falls at home. He presented to [facility] emergency center for evaluation found to be afebrile, heart rate 97, blood pressure 120/68, pulse ox 93%. EKG was a sinus rhythm with no acute ST changes. Chest x-ray was positive for Covid pneumonia. WBC 3.8, hemoglobin 12.4, platelet count 164. Sodium 133, BUN 21 creatinine 1.73. Blood sugar 237. ProBNP 981. Troponin 0.030. Lactic acid 1.0. Magnesium 1.5 and was replaced in the emergency center. Venous Doppler of the bilateral lower exam is negative for DVT. 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 Patient admitted to the [facility] floor, started on Lovenox, dexamethasone, vitamin supplements and consult with pulmonary medicine. patient examined bedside sitting comfortably in bed. Is currently saturating at 93% on room air otherwise vitals are stable afebrile pulse 67 respiratory 8. 19 blood pressure 116/66 magnesium has improved to 2.1 liver enzymes continues to remain elevated proBNP is normal. Patient has detailed workup of liver enzymes in the previous admission and was seen by Dr. Purcell. Fat ty hepatic infiltration was noted on hepatic ultrasound.. Continue patient on Decadron, Lovenox and supplementation. Venous Doppler suggestive of chronic DVT involving the right leg. Patient has no documentation of previous DVT and would benefit from Eliquis on discharge. will increase Lovenox to 100 subcu twice a day. His pro calcitonin was elevated he should patient on Rocephin and azithro mycin for possible overlying for bacterial infection Patient examined lying comfortably in bed. Patient endorses yellowish phlegm production and SOB, oxygen saturation mentained on 1 Litre. Continue decadon, vit supplement and lovenox with plan to initiate eliquis on discharge for chronic DVT. PT OT evaluation with possible transfer to [facility] as patient had 2 falls prior to admission . He has significant weakness from COVID Pneumonia and would benefot from rehab 06/08 patient examined lying comfortably in bed. He is coughing white phlegm associated with congestion denies any shortness of breath. Patient continues to remain on 2 L oxygen saturating 90-91% blood pressure 147/78, LDH 8:30 8B1.7 continues to improve. Blood sugar ranging from 109 to 325. Continue Decadron, vitamin supplements. Lovenox for this issue Eliquis for 1 month. patient is significantly weak and is unable to get a his activities at this point. PTOT has recommended subacute rehab. I feel patient would benefit for a few days and we have before he is discharged to his home setting. Patient will complete Augmentin twice a day for 7 days. Mucinex 1200 twice a day Tessalon Perles added at 100 mg 3 times. Patient's elected to send patient to rehab who would like to take patient home. PT OT has recommended subacute rehab due to increased weakness. Will arrange patient's oxygen with possible discharge to home with home physical therapy as per family request 06/09 patient is lying in bed appears tired and weak. Her earlier today and nurse called as patient's oxygen requirement increased from 1 L to 10 L. Patient denies any worsening shortness breath or cough or dizziness. Chest x-r ay was obtained as suggest bilateral radiculo nodular opacities suggestive of progression of Covid pneumonia. Patient is currently maintaining oxygenation 92% on 10 L of oxygen temp is 97.6 pulse 84 respiratory rate 17. Labs show worsening of information 3 markers suggesting increase of energy and she increase in CRP. No family updated on the prognosis. Await recommendation from pulmonary. Patient would benefit from Baricitinib infusion. Pulmonary recommendations awaiting 06/10 the patient examined bedside. He is currently frail looking short of breath at rest. Patient's afebrile pulse 73 that started radiating blood pressure 138/78 SIGNIFICANT 90% on 15 L high flow with nonrebreather at rest to 12,078, CRP increased to 2. Procalcitonin is normal. Patient is currently on supportive care. Discussion with pulmonary for possibility of baritinib patient has acutely decompensated. Patient's prognosis is poor 06/11: Patient remains in Covid isolation. He continues to have cough complains of chest discomfort with deep breathing. He has been on oxygen therapy with BiPAP 100% FiO2 with pulse ox of 89%. He's been afebrile, heart rate 90, respiratory rate 27, blood pressure 135/78. WBC 12.5, hemoglobin 13, platelet count 305. D-dimer 0.69. Blood sugars running between 145 and 341. AST 51, ALT 65. One dose of IV Lasix ordered. REVIEW OF SYSTEMS Constitutional: No fever, no chills, no night sweats. No weight change. Reports weakness, Reports fatigue. EENT: No headache. No blurred vision or double vision, no loss of vision. Repo rts loss of Hearing. No nasal drainage or congestion. No epistaxis. No sore throat. Lungs: Reports worsening shortness of breath, reports cough, reports sputum production. No wheezing. Cardiovascular: No chest pain, no lower extremity edema. No palpitations. No paroxysmal nocturnal dyspnea. No orthopnea. No lightheadedness or dizziness. No syncopal episodes. Abdominal: Denies abdominal pain. No nausea, vomiting. No diarrhea. No constipation. No bloody or tarry stools.. No loss of appetite. Genitourinary: No dysuria, increased frequency, urgency. No urinary retention. Musculoskeletal: No myalgias. Reports muscle weakness, Reports gait dysfunction, Reports falls. No back pain. No neck pain. Integumentary: No wounds, no lesions. No rash or pruritus. Neurologic: No aphasia. No facial droop. No change in mentation. No head injury. No headache. No paralysis. No paresthesia. Psychiatric: No depression. No anxiety. Endocrine: Noted abnormal blood sugars. PHYSICAL EXAMINATION Gen: This is an 86-year-old male. Patient is resting in bed and appears to be in no acute distress. He is currently on oxygen therapy BiPAP. HEENT: Head is atraumatic, normocephalic. Pupils equal, round. Sclerae is anicteric. NECK: Supple. No JVD. No lymphadenopathy. No thyromegaly. LUNGS: Diminished with bilateral crackles. No intercostal retractions. HEART: Regular rate and rhythm. No murmur. ABDOMEN: Soft. Bowel sounds are present. No masses. No tenderness. Umbilical hernia EXTREMITIES: No pedal edema. No calf tenderness. Dorsalis pedis palpable bilaterally. NEUROLOGICAL: Patient is awake, alert and oriented x3. Cranial nerves 2 through 12 are grossly intact. ASSESSMENT AND PLAN 1. Acute hypoxic respiratory failure secondary to COVID-19 pneumonia. Continue on dexamethasone, Lovenox, vitamin supplements, consult with pulmonary medicine, oxygen therapy. Mucinex 1200 mg twice daily. Tessalon Perles 100 mg 3 times daily, continue Baricitinib. Patient to be transitioned to AirVo. 2. Acute kidney injury secondary to ATN on Chronic kidney disease stage IIIb. Patient is status post 1.5 L of IV fluid. Recheck kidney function in the morning. 3. Acute on chronic Generalized weakness with multiple falls PT and OT consults added recommend CARLITO. Patient is requesting discharging patient home 4. Chronic DVT of right leg. Eliquis increased to 100 subcu twice a day with plan to discharge patient on Eliquis 5. Hypertension, hypertensive cardiovascular disease. Blood pressure is on the low side, continue lisinopril 2.5 mg daily with parameters, continue metoprolol 25 twice a day 6. Diabetes mellitus type 2 uncontrolled hyperglycemia. Continue NovoLog scale before meals and at bedtime, Levemir changed to 25 mg twice daily, NovoLog 5 units scheduled with each meal. 7. Obesity with obstructive sleep apnea and obesity hypoventilation syndrome. 8. Gastroesophageal reflux disease and GI prophylaxis. Continue omeprazole or equivalent. 9. Benign prostatic hypertrophy. Continue Flomax 0.4 mg twice daily. 10. Hyperlipidemia. Continue atorvastatin 20 mg daily at bedtime 11. DVT prophylaxis. Lovenox. Impression and plan of care have been directed as dictated by the signing physician. Augustina Washington nurse practitioner acting as scribe for signing physician. Objective - Vital Signs Vital signs: Vital Signs Temp 97.6 F 06/11/21 10:00 Pulse 90 06/11/21 10:00 Resp 27 H 06/11/21 10:00 BP 135/78 06/11/21 10:00 Pulse Ox 89 L 06/11/21 10:00 Intake & Output 06/10/21 06/11/21 06/11/21 18:59 06:59 18:59 Intake Total 50 Output Total 2600 Balance 50 -2600 Intake: Intake, IV Titration 50 Amount cefTRIAXone 1 gm In 50 Sodium Chloride 0.9% 50 ml @ 100 mls/hr IVPB Q24HR [facility] Rx#:[id number] Output: Urine 2600 Other: Voiding Method External Catheter External Catheter - Labs CBC & Chem 7: 06/11/21 06:17 06/11/21 06:17 Labs: Abnormal Lab Results - Last 24 Hours (Table) 06/10/21 06/10/21 06/10/21 Range/Units 11:46 13:56 16:41 D-Dimer 0.60 H (<0.60) mg/L FEU ABG pH (7.35-7.45) ABG pO2 (83-108) mmHg ABG HCO3 (21-25) mmol/L ABG Total CO2 (19-24) mmol/L ABG O2 Saturation (94-97) % POC Glucose (mg/dL) 134 H 224 H (75-99) mg/dL 06/10/21 06/10/21 06/11/21 Range/Units 20:45 23:03 06:17 D-Dimer 0.69 H (<0.60) mg/L FEU ABG pH 7.55 H (7.35-7.45) ABG pO2 56 L* (83-108) mmHg ABG HCO3 35 H (21-25) mmol/L ABG Total CO2 36 H (19-24) mmol/L ABG O2 Saturation 91.4 L (94-97) % POC Glucose (mg/dL) 341 H (75-99) mg/dL 06/11/21 Range/Units 07:09 D-Dimer (<0.60) mg/L FEU ABG pH (7.35-7.45) ABG pO2 (83-108) mmHg ABG HCO3 (21-25) mmol/L ABG Total CO2 (19-24) mmol/L ABG O2 Saturation (94-97) % POC Glucose (mg/dL) 145 H (75-99) mg/dL
[2021-06-11 16:52] LABS: Glucose,Whole Blood 137 mg/dL (75-99)
[2021-06-11] MEDS: BARICITINIB 2 MG TABLET PO SCH (17:38)
[2021-06-11 21:03] LABS: Glucose,Whole Blood 122 mg/dL (75-99)
[2021-06-11] MEDS: ATORVASTATIN 20 MG TAB PO SCH (21:17)
[2021-06-12 07:04] LABS: Glucose,Whole Blood 121 mg/dL (75-99)
[2021-06-12] MEDS: INSULIN ASPART (NovoLOG) 100 UNIT/ML VIAL SQ SCH ×7 (07:53→21:34)
[2021-06-12] MEDS: TAMSULOSIN 0.4 MG CAP.ER.24H PO SCH ×2 (08:45→17:46)
[2021-06-12] MEDS: DEXAMETHASONE SOD PHOSPHATE 10 MG/ML 1 ML VIAL IVP SCH (08:45)
[2021-06-12] MEDS: guaiFENesin 600 MG TABLET.ER PO SCH ×2 (08:45→21:34)
[2021-06-12] MEDS: ENOXAPARIN 40 MG/0.4 ML SYRINGE SQ SCH (08:45)
[2021-06-12] MEDS: ASCORBIC ACID 500 MG TAB PO SCH (08:45)
[2021-06-12] MEDS: PANTOPRAZOLE 40 MG TABLET PO SCH (08:46)
[2021-06-12] MEDS: INSULIN DETEMIR (LEVEMIR) 100 UNIT/ML SYR SQ SCH ×2 (08:46→21:34)
[2021-06-12] MEDS: CHOLECALCIFEROL 25 MCG (1000 IU) TABLET PO SCH (08:46)
[2021-06-12] MEDS: ZINC SULFATE 220 MG CAP PO SCH (08:46)
[2021-06-12] MEDS: METOPROLOL TARTRATE 25 MG TAB PO SCH ×2 (08:46→21:34)
[2021-06-12 09:12] LABS: Basophils # (A) 0.05 X 10*3/uL (0.00-0.10); Basophils % (A) 0.4 %; Eosinophils # (A) 0 X 10*3/uL (0.04-0.35); Eosinophils % (A) 0 %; HCT 40.5 % (39.6-50.0); HGB 12.9 g/dL (13.0-17.0); Lymphocytes # (A) 2.15 X 10*3/uL (0.90-5.00); Lymphocytes % (A) 18.6 %; MCH 31.2 pg (27.0-32.0); MCHC 31.9 g/dL (32.0-37.0); MCV 97.8 fL (80.0-97.0); Mean Platelet Volume 9.8 fL (9.5-12.2); Monocytes # (A) 0.33 X 10*3/uL (0.20-1.00); Monocytes % (A) 2.9 %; Neutrophils # (A) 8.49 X 10*3/uL (1.80-7.70); Neutrophils % (A) 73.7 %; Platelet Count 310 X 10*3/uL (140-440); RBC 4.14 X 10*6/uL (4.40-5.60); RDW 13.1 % (11.5-14.5); WBC 11.53 X 10*3/uL (4.50-10.00)
[2021-06-12 09:38] LABS: African American GFR (CKD) 47.8 (60.0-200.0); Albumin 3.3 g/dL (3.8-4.9); Albumin/Globulin Ratio 1.14 (1.60-3.17); Anion Gap 11.1 mmol/L (10.00-18.00); BUN/Creat Ratio 30.93 Ratio (12.00-20.00); Blood Urea Nitrogen 46.4 mg/dL (9.0-27.0); Calcium 9.2 mg/dL (8.7-10.3); Carbon Dioxide 32.9 mmol/L (20.0-27.5); Globulin 2.9 g/dL (1.6-3.3); Non-African American GFR(CKD) 41.3 (60.0-200.0); Potassium 4.4 mmol/L (3.5-5.5); Total Bilirubin 0.6 mg/dL (0.30-1.20); Total Protein 6.2 g/dL (6.2-8.2)
[2021-06-12 11:36] LABS: Glucose,Whole Blood 190 mg/dL (75-99)
--- NOTE | 2021-06-12 13:38 | P.PN ---
Subjective Progress Note Date: 06/12/21 Principal diagnosis: Dyspnea On 06/09/2021 patient seen in follow-up on medical surgical floor. He was supposed to be discharged home today, he was doing well, he was only requiring minimal supplemental oxygen however patient became progressively hypoxic, and he is currently on 11 L of oxygen pulse ox is 88-90%, afebrile, chest x-ray was repeated showed cardiomegaly and chronic parenchymal changes with worsening bibasilar reticulonodular opacities, and the findings were consistent with COVID-19 infection progression. He was given a dose of Lasix for worsening respiratory status, his Decadron dose was increased to 6 mg twice daily, and his Lovenox has been increased to 100 mg twice daily per [facility] provider, he is also on azithromycin and Tessalon Perles. 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 Left leg was negative for DVT. His most recent d-dimer from today is 0.96 relatively stable, his ESR is 50, his inflammatory markers were sent, and his LDH is up to 1278, his CRP is 2.0. Patient fatigue, but denies any acute distress, he be breathing comfortably. On 06/11/2021 patient seen in follow-up on medical surgical floor. He is currently on BiPAP support with pressures of 12 and 6 and FiO2 of 100%, and his pulse ox is ranging between 88-90%, he is breathing fairly comfortably, his minute ventilation is 17. However patient reports off the BiPAP mask frequently. he will be tried on high flow nasal cannula or irritable. Patient was noted to be rapidly desaturating when he was being taken off even briefly for a few seconds off the BiPAP. Does have a cough, nonproductive, his been afebrile, blood pressure is been stable, started on Baricitinib yesterday, and he continues on Decadron 6 mg daily. His Lovenox dose was cut back to prophylactic dose 40 mg daily, his right lower extremity just showed chronic DVT, no acute DVT. Patient's renal profile is impaired and patient is unable to have CT angiogram to rule out possibility of PE. Follow-up d-dimer is 0.96, relatively stable, his LDH has been increasing and 2 days ago on 06/09/2021 it was up to 1278, and CRP was 2.0, Procan SR level was negative at 0.07. In addition patient received a dose of IV Lasix yesterday, and he is in negative fluid balance at 2.5 L over the last 24 hours. No lower extremity edema was noted, he still has extensive coarse bibasilar crackles at bilateral bases. On 06/12/2021 2015 follow-up on medical surgical floor, he has been on BiPAP support at 12 and 6, and Fio2 of 100%, and Airvo 60 L and 90%, and patient has been frequently removing the BiPAP mask and taking off the Airvo and desaturat ing quite low to 60%. Becomes resistant with care, becomes mildly agitated. Afebrile, blood pressure is stable at 124/79. Lung sounds are positive for diffuse crackles. He is very hard of hearing, difficult to communicate with, he is currently sitting up in a recliner, does not appear to be fluid overloaded, he is continues on prophylactic dose Lovenox 40 mg daily, his lower extremity Dopplers only showed evidence of chronic DVT in the right lower extremity, no swelling in bilateral lower extremities. He continues on Baricitinib, on Decadron, multivitamins. Last chest x-ray from 06/02/2021 showed evidence of some mild heart failure. Today's labs have been reviewed, with some condoms 11 .5, hemoglobin is 12.9, sodium is 140, potassium is 4.4, chloride is 96, CO2 32, BUN is 46, creatinine is 1.5 Objective - Vital Signs Vital signs: Vital Signs Temp 96.7 F L 06/12/21 10:18 Pulse 80 06/12/21 10:18 Resp 16 06/12/21 10:18 BP 107/65 06/12/21 10:18 Pulse Ox 90 L 06/12/21 10:18 Intake & Output 06/11/21 06/12/21 06/12/21 18:59 06:59 18:59 Other: Voiding Method External Catheter Diaper # Voids 2 1 - Exam GENERAL EXAM: Patient looks more awake on today's exam, however he is very hard of hearing and difficult to communicate with 86-year-old white male, BiPAP support with pressures of 12 and 6 on FiO2 100%, and he removes mask, becomes anxious and agitated, resistant with care, with a pulse ox of 88-89% comfortable in no apparent distress. HEAD: Normocephalic/atraumatic. EYES: Normal reaction of pupils, equal size. Conjunctiva pink, sclera white. NOSE: Clear with pink turbinates. THROAT: No erythema or exudates. NECK: No masses, no JVD, no thyroid enlargement, no adenopathy. CHEST: No chest wall deformity. Symmetrical expansion. LUNGS: Equal air entry with basilar crackles CVS: Regular rate and rhythm, normal S1 and S2, no gallops, no murmurs, no rubs ABDOMEN: Soft, nontender. No hepatosplenomegaly, normal bowel sounds, no guarding or rigidity. EXTREMITIES: No clubbing, edema in the right lower extremity no cyanosis, 2+ p ulses and upper and lower extremities. MUSCULOSKELETAL: Muscle strength and tone normal. SPINE: No scoliosis or deformity SKIN: No rashes CENTRAL NERVOUS SYSTEM: Alert and oriented -1. No focal deficits, tone is normal in all 4 extremities. PSYCHIATRIC: Alert and oriented -1. Appropriate affect. Intact judgment and insight. - Labs CBC & Chem 7: 06/12/21 06:01 06/12/21 06:01 Labs: Abnormal Lab Results - Last 24 Hours (Table) 06/11/21 06/11/21 06/12/21 Range/Units 16:50 21:00 06:01 WBC 11.53 H (4.50-10.00) X 10*3/uL RBC 4.14 L (4.40-5.60) X 10*6/uL Hgb 12.9 L (13.0-17.0) g/dL MCV 97.8 H (80.0-97.0) fL MCHC 31.9 L (32.0-37.0) g/dL Absolute Nucleated RBC 0.03 H (0.00-0.00) X 10*3/uL Immature Gran # 0.51 H (0.00-0.04) X 10*3/uL Neutrophils # 8.49 H (1.80-7.70) X 10*3/uL Eosinophils # 0 L (0.04-0.35) X 10*3/uL NRBC/100 WBC Diff 0.3 H (0.0-0.0) /100 WBCS Carbon Dioxide (20.0-27.5) mmol/L BUN (9.0-27.0) mg/dL Est GFR (CKD-EPI)AfAm (60.0-200.0) Est GFR (CKD-EPI)NonAf (60.0-200.0) BUN/Creatinine Ratio (12.00-20.00) Ratio Glucose (70-110) mg/dL POC Glucose (mg/dL) 137 H 122 H (75-99) mg/dL AST (14-35) U/L ALT (10-49) U/L Alkaline Phosphatase (41-126) U/L Albumin (3.8-4.9) g/dL Albumin/Globulin Ratio (1.60-3.17) g/dL 06/12/21 06/12/21 06/12/21 Range/Units 06:01 07:03 11:35 WBC (4.50-10.00) X 10*3/uL RBC (4.40-5.60) X 10*6/uL Hgb (13.0-17.0) g/dL MCV (80.0-97.0) fL MCHC (32.0-37.0) g/dL Absolute Nucleated RBC (0.00-0.00) X 10*3/uL Immature Gran # (0.00-0.04) X 10*3/uL Neutrophils # (1.80-7.70) X 10*3/uL Eosinophils # (0.04-0.35) X 10*3/uL NRBC/100 WBC Diff (0.0-0.0) /100 WBCS Carbon Dioxide 32.9 H (20.0-27.5) mmol/L BUN 46.4 H (9.0-27.0) mg/dL Est GFR (CKD-EPI)AfAm 47.8 L (60.0-200.0) Est GFR (CKD-EPI)NonAf 41.3 L (60.0-200.0) BUN/Creatinine Ratio 30.93 H (12.00-20.00) Ratio Glucose 113 H (70-110) mg/dL POC Glucose (mg/dL) 121 H 190 H (75-99) mg/dL AST 49 H (14-35) U/L ALT 67 H (10-49) U/L Alkaline Phosphatase 127 H (41-126) U/L Albumin 3.3 L (3.8-4.9) g/dL Albumin/Globulin Ratio 1.14 L (1.60-3.17) g/dL Assessment and Plan Plan: Assessment: #1. Acute hypoxic respiratory failure, related to acute COVID-19 pneumonia, o nset of symptoms was 2 weeks prior to presentation, patient is non-vaccinated against COVID 19, outside the window for Remdesivir, and will be treated supportively with a combination of anticoagulation, Decadron and multivitamins. His hypoxia has progressed, patient was started on Baricitinib on 06/10/2021 #2. Elevated d-dimer, lower extremity Doppler showed a chronic DVT in the right lower extremity, therapeutic doses of Lovenox or cut back and patient is currently back on prophylactic Lovenox 40 #3. Increased LFTs, related to viral pneumonia #4. Hypertension #5. Hyperlipidemia #6. Obstructive sleep apnea #7. Diabetes mellitus type 2 #8. Obesity with obesity hypoventilation syndrome #9. Chronic kidney disease stage IIIB #10. History of right lower extremity DVT not on any chronic anticoagulation Plan: Patient still requiring high flow oxygen, he is not tolerating BiPAP very well, becomes agitated, removes mass, desaturated quite low Was tried on Airvo, and also tolerating it poorly, Does not appear to have increased work of breathing, however in view of severe h ypoxia he is at risk for further deterioration We'll obtain a set of inflammatory markers tomorrow, basic labs, follow-up chest x-ray tomorrow Continue Baricitinib, decadron, and lovenox Recommend addressing code status with the family Fow now continue supportive treament I performed a history & physical examination of the patient and discussed their management with my nurse practitioner, Jennifer Cespedes. I reviewed the nurse practitioner's note and agree with the documented findings and plan of care. Lung sounds are positive for diminished breath sounds throughout the lung vázquez. The findings and the impression was discussed with the patient. I attest to the documentation by the nurse practitioner. Time with Patient: Less than 30
[2021-06-12 16:33] LABS: Glucose,Whole Blood 183 mg/dL (75-99)
[2021-06-12] MEDS: BARICITINIB 2 MG TABLET PO SCH (17:46)
[2021-06-12 20:50] LABS: Glucose,Whole Blood 133 mg/dL (75-99)
[2021-06-12] MEDS: ATORVASTATIN 20 MG TAB PO SCH (21:34)
[2021-06-13 07:06] LABS: Basophils % (A) 0 %; Eosinophils % (A) 0 %; HCT 41.1 % (39.0-53.0); HGB 13.6 gm/dL (13.0-17.5); Lymphocytes # (A) 1.3 k/uL (1.0-4.8); Lymphocytes % (A) 13 %; MCH 32.1 pg (25.0-35.0); MCV 97.2 fL (80.0-100.0); Mean Platelet Volume 7.6; Monocytes # (A) 0.3 k/uL (0-1.0); Monocytes % (A) 3 %; Neutrophils # (A) 7.6 k/uL (1.3-7.7); Neutrophils % (A) 81 %; Platelet Count 332 k/uL (150-450); RBC 4.23 m/uL (4.30-5.90); RDW 13.6 % (11.5-15.5); WBC 9.4 k/uL (3.8-10.6)
[2021-06-13 07:13] LABS: Glucose,Whole Blood 83 mg/dL (75-99)
[2021-06-13] MEDS: INSULIN ASPART (NovoLOG) 100 UNIT/ML VIAL SQ SCH ×7 (07:30→21:01)
--- NOTE | 2021-06-13 08:03 | XR ---
EXAMINATION TYPE: XR chest 1V portable DATE OF EXAM: 06/13/2021 COMPARISON: 06/10/2021 INDICATION: Short of breath TECHNIQUE: Single frontal view of the chest is obtained. FINDINGS: The heart size is mildly prominent. The pulmonary vasculature is normal. Mild infiltrates at the right base. There is a moderate infiltrate in left lower lobe which is worsen ing. IMPRESSION: 1. Worsening left lower lobe infiltrate. Mild infiltrate at the right base. Correlate for atelectasis and pneumonia. Follow-up can be performed
[2021-06-13] MEDS: ZINC SULFATE 220 MG CAP PO SCH (08:20)
[2021-06-13] MEDS: CHOLECALCIFEROL 25 MCG (1000 IU) TABLET PO SCH (08:20)
[2021-06-13] MEDS: PANTOPRAZOLE 40 MG TABLET PO SCH (08:20)
[2021-06-13] MEDS: guaiFENesin 600 MG TABLET.ER PO SCH ×2 (08:20→21:02)
[2021-06-13] MEDS: DEXAMETHASONE SOD PHOSPHATE 10 MG/ML 1 ML VIAL IVP SCH (08:20)
[2021-06-13] MEDS: TAMSULOSIN 0.4 MG CAP.ER.24H PO SCH ×2 (08:20→15:48)
[2021-06-13] MEDS: ENOXAPARIN 40 MG/0.4 ML SYRINGE SQ SCH (08:20)
[2021-06-13] MEDS: ASCORBIC ACID 500 MG TAB PO SCH (08:20)
[2021-06-13] MEDS: INSULIN DETEMIR (LEVEMIR) 100 UNIT/ML SYR SQ SCH ×2 (08:21→21:01)
[2021-06-13] MEDS: METOPROLOL TARTRATE 25 MG TAB PO SCH ×2 (08:21→21:03)
[2021-06-13 08:27] LABS: ALT 67 U/L (4-49); AST 51 U/L (17-59); African American GFR (CKD) 48 (>60 ml/min/1.73 sqM); Albumin 3.2 g/dL (3.5-5.0); Alkaline Phosphatase 123 U/L (38-126); Anion Gap 5 mmol/L; Blood Urea Nitrogen 63 mg/dL (9-20); Calcium 9.1 mg/dL (8.4-10.2); Carbon Dioxide 34 mmol/L (22-30); Chloride 95 mmol/L (98-107); Globulin 3.2 g/dL; Glucose 76 mg/dL (74-99); LDH 1098 U/L (313-618); Non-African American GFR(CKD) 41 (>60 ml/min/1.73 sqM); Potassium 4.3 mmol/L (3.5-5.1); Sodium 134 mmol/L (137-145); Total Bilirubin 0.7 mg/dL (0.2-1.3); Total Protein 6.4 g/dL (6.3-8.2)
[2021-06-13 08:57] LABS: C Reactive Protein 5.7 mg/dL (<1.0)
[2021-06-13 11:38] LABS: Glucose,Whole Blood 242 mg/dL (75-99)
--- NOTE | 2021-06-13 14:06 | P.PN ---
Subjective Progress Note Date: 06/12/21 This is an 86-year-old male patient of Dr. Larkin with past medical history of hypertension, hypertensive cardiovascular disease, hyperlipidemia, gastroesophageal reflux disease, diabetes mellitus type 2, obesity with obstructive sleep apnea and obesity hypoventilation syndrome, generalized osteo arthritis, chronic kidney disease stage IIIb, chronic DVT right lower extremity, patient had onset of symptoms 2 weeks ago with continued worsening of cough and shortness of breath. He has phlegm production. He has a little bit of chest pain. Patient complains of weakness and his had 3 falls at home. He presented to [facility] emergency center for evaluation found to be afebrile, heart rate 97, blood pressure 120/68, pulse ox 93%. EKG was a sinus rhythm with no acute ST changes. Chest x-ray was positive for Covid pneumonia. WBC 3.8, hemoglobin 12.4, platelet count 164. Sodium 133, BUN 21 creatinine 1.73. Blood sugar 237. ProBNP 981. Troponin 0.030. Lactic acid 1.0. Magnesium 1.5 and was replaced in the emergency center. Venous Doppler of the bilateral lower exam is negative for DVT. 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 Patient admitted to the [facility] floor, started on Lovenox, dexamethasone, vitamin supplements and consult with pulmonary medicine. patient examined bedside sitting comfortably in bed. Is currently saturating at 93% on room air otherwise vitals are stable afebrile pulse 67 respiratory 8. 19 blood pressure 116/66 magnesium has improved to 2.1 liver enzymes continues to remain elevated proBNP is normal. Patient has detailed workup of liver enzymes in the previous admission and was seen by Dr. Purcell. Fat ty hepatic infiltration was noted on hepatic ultrasound.. Continue patient on Decadron, Lovenox and supplementation. Venous Doppler suggestive of chronic DVT involving the right leg. Patient has no documentation of previous DVT and would benefit from Eliquis on discharge. will increase Lovenox to 100 subcu twice a day. His pro calcitonin was elevated he should patient on Rocephin and azithro mycin for possible overlying for bacterial infection Patient examined lying comfortably in bed. Patient endorses yellowish phlegm production and SOB, oxygen saturation mentained on 1 Litre. Continue decadon, vit supplement and lovenox with plan to initiate eliquis on discharge for chronic DVT. PT OT evaluation with possible transfer to [facility] as patient had 2 falls prior to admission . He has significant weakness from COVID Pneumonia and would benefot from rehab 06/08 patient examined lying comfortably in bed. He is coughing white phlegm associated with congestion denies any shortness of breath. Patient continues to remain on 2 L oxygen saturating 90-91% blood pressure 147/78, LDH 8:30 8B1.7 continues to improve. Blood sugar ranging from 109 to 325. Continue Decadron, vitamin supplements. Lovenox for this issue Eliquis for 1 month. patient is significantly weak and is unable to get a his activities at this point. PTOT has recommended subacute rehab. I feel patient would benefit for a few days and we have before he is discharged to his home setting. Patient will complete Augmentin twice a day for 7 days. Mucinex 1200 twice a day Tessalon Perles added at 100 mg 3 times. Patient's elected to send patient to rehab who would like to take patient home. PT OT has recommended subacute rehab due to increased weakness. Will arrange patient's oxygen with possible discharge to home with home physical therapy as per family request 06/09 patient is lying in bed appears tired and weak. Her earlier today and nurse called as patient's oxygen requirement increased from 1 L to 10 L. Patient denies any worsening shortness breath or cough or dizziness. Chest x-r ay was obtained as suggest bilateral radiculo nodular opacities suggestive of progression of Covid pneumonia. Patient is currently maintaining oxygenation 92% on 10 L of oxygen temp is 97.6 pulse 84 respiratory rate 17. Labs show worsening of information 3 markers suggesting increase of energy and she increase in CRP. No family updated on the prognosis. Await recommendation from pulmonary. Patient would benefit from Baricitinib infusion. Pulmonary recommendations awaiting 06/10 the patient examined bedside. He is currently frail looking short of breath at rest. Patient's afebrile pulse 73 that started radiating blood pressure 138/78 SIGNIFICANT 90% on 15 L high flow with nonrebreather at rest to 12,078, CRP increased to 2. Procalcitonin is normal. Patient is currently on supportive care. Discussion with pulmonary for possibility of baritinib patient has acutely decompensated. Patient's prognosis is poor 06/11: Patient remains in Covid isolation. He continues to have cough complains of chest discomfort with deep breathing. He has been on oxygen therapy with BiPAP 100% FiO2 with pulse ox of 89%. He's been afebrile, heart rate 90, respiratory rate 27, blood pressure 135/78. WBC 12.5, hemoglobin 13, platelet count 305. D-dimer 0.69. Blood sugars running between 145 and 341. AST 51, ALT 65. One dose of IV Lasix ordered. 06/12patient is seen today on the [facility] floor and continues to be in isolation. Patient is currently on BiPAP but not on airflow. Patient apparently is taking off his oxygen repeatedly. He is currently a full CODE STATUS. Dr. Larkin contacted the patient's and discussed current condition and poor prognosis and patient has been changed to no code and family may consider comfort care if he does not have improvement of his condition.patient is afebrile, heart rate 80, blood pressure 107/65, pulse ox 90%.repeat blood work reveals WBC 11.5, hemoglobin 12.9, platelet count 310. Creatinine 1.5. Blood sugars running between 120 and 190. AST 49, ALT 67, alkaline phosphatase 127. REVIEW OF SYSTEMS Constitutional: No fever, no chills, no night sweats. No weight change. Reports weakness, Reports fatigue. EENT: No headache. No blurred vision or double vision, no loss of vision. Reports loss of Hearing. No nasal drainage or congestion. No epistaxis. No sore throat. Lungs: Reports worsening shortness of breath, reports cough, reports sputum production. No wheezing. Cardiovascular: No chest pain, no lower extremity edema. No palpitations. No paroxysmal nocturnal dyspnea. No orthopnea. No lightheadedness or dizziness. No syncopal episodes. Abdominal: Denies abdominal pain. No nausea, vomiting. No diarrhea. No constipation. No bloody or tarry stools.. No loss of appetite. Genitourinary: No dysuria, increased frequency, urgency. No urinary retention. Musculoskeletal: No myalgias. Reports muscle weakness, Reports gait dysfunction, Reports falls. No back pain. No neck pain. Integumentary: No wounds, no lesions. No rash or pruritus. Neurologic: No aphasia. No facial droop. Noted change in mentation. No head injury. No headache. No paralysis. No paresthesia. Psychiatric: No depression. No anxiety. Endocrine: Noted abnormal blood sugars. PHYSICAL EXAMINATION Gen: This is an 86-year-old male. Patient is resting in recliner awas significant fatigue. He is currently on oxygen therapy BiPAP. HEENT: Head is atraumatic, normocephalic. Pupils equal, round. Sclerae is anicteric. NECK: Supple. No JVD. No lymphadenopathy. No thyromegaly. LUNGS: Diminished with bilateral crackles. No intercostal retractions. HEART: Regular rate and rhythm. No murmur. ABDOMEN: Soft. Bowel sounds are present. No masses. No tenderness. Umbilical hernia EXTREMITIES: No pedal edema. No calf tenderness. Dorsalis pedis palpable bila terally. NEUROLOGICAL: Patient is awake, alert and oriented x3. Cranial nerves 2 through 12 are grossly intact. ASSESSMENT AND PLAN 1. Acute hypoxic respiratory failure secondary to COVID-19 pneumonia. Continue on dexamethasone, Lovenox, vitamin supplements, consult with pulmonary medicine, oxygen therapy. Mucinex 1200 mg twice daily. Tessalon Perles 100 mg 3 times daily, continue Baricitinib. patient is not tolerating oxygen therapy and continues to remove. 2. Acute kidney injury secondary to ATN on Chronic kidney disease stage IIIb. Patient is status post 1.5 L of IV fluid. Recheck kidney function in the morning. 3. Acute on chronic Generalized weakness with multiple falls PT and OT consults added recommend CARLITO. Patient is requesting discharging patient home 4. Chronic DVT of right leg. patient is on Lanoxin 40 mg subcu daily. 5. Hypertension, hypertensive cardiovascular disease. Blood pressure is on the low side, continue lisinopril 2.5 mg daily with parameters, continue metoprolol 25 twice a day 6. Diabetes mellitus type 2 uncontrolled hyperglycemia. Continue NovoLog scale before meals and at bedtime, Levemir changed to 25 mg twice daily, NovoLog 5 units scheduled with each meal. 7. Obesity with obstructive sleep apnea and obesity hypoventilation syndrome. 8. Gastroesophageal reflux disease and GI prophylaxis. Continue omeprazole or equivalent. 9. Benign prostatic hypertrophy. Continue Flomax 0.4 mg twice daily. 10. Hyperlipidemia. Continue atorvastatin 20 mg daily at bedtime 11. DVT prophylaxis. Lovenox. Impression and plan of care have been directed as dictated by the signing physician. Augustina Washington nurse practitioner acting as scribe for signing physician. Objective - Vital Signs Vital signs: Vital Signs Temp 96.7 F L 06/12/21 10:18 Pulse 80 06/12/21 10:18 Resp 16 06/12/21 10:18 BP 107/65 06/12/21 10:18 Pulse Ox 90 L 06/12/21 10:18 Intake & Output 06/11/21 06/12/21 06/12/21 18:59 06:59 18:59 Other: Voiding Method External Catheter Diaper # Voids 2 1 - Labs CBC & Chem 7: 06/13/21 06:16 06/13/21 06:16 Labs: Abnormal Lab Results - Last 24 Hours (Table) 06/11/21 06/11/21 06/11/21 Range/Units 06:17 06:17 11:50 WBC 12.50 H (4.50-10.00) X 10*3/uL RBC 4.24 L (4.40-5.60) X 10*6/uL Hgb (13.0-17.0) g/dL MCV (80.0-97.0) fL MCHC (32.0-37.0) g/dL Absolute Nucleated RBC 0.05 H (0.00-0.00) X 10*3/uL Immature Gran # 0.57 H (0.00-0.04) X 10*3/uL Neutrophils # 9.59 H (1.80-7.70) X 10*3/uL Eosinophils # 0 L (0.04-0.35) X 10*3/uL NRBC/100 WBC Diff 0.4 H (0.0-0.0) /100 WBCS Chloride 94 L (96-109) mmol/L Carbon Dioxide 30.2 H (20.0-27.5) mmol/L BUN 40.3 H (9.0-27.0) mg/dL Est GFR (CKD-EPI)AfAm 56.9 L (60.0-200.0) Est GFR (CKD-EPI)NonAf 49.1 L (60.0-200.0) BUN/Creatinine Ratio 31.00 H (12.00-20.00) Ratio Glucose 139 H (70-110) mg/dL POC Glucose (mg/dL) 299 H (75-99) mg/dL AST 51 H (14-35) U/L ALT 65 H (10-49) U/L Alkaline Phosphatase (41-126) U/L Albumin 3.5 L (3.8-4.9) g/dL Albumin/Globulin Ratio 1.30 L (1.60-3.17) g/dL 06/11/21 06/11/21 06/12/21 Range/Units 16:50 21:00 06:01 WBC 11.53 H (4.50-10.00) X 10*3/uL RBC 4.14 L (4.40-5.60) X 10*6/uL Hgb 12.9 L (13.0-17.0) g/dL MCV 97.8 H (80.0-97.0) fL MCHC 31.9 L (32.0-37.0) g/dL Absolute Nucleated RBC 0.03 H (0.00-0.00) X 10*3/uL Immature Gran # 0.51 H (0.00-0.04) X 10*3/uL Neutrophils # 8.49 H (1.80-7.70) X 10*3/uL Eosinophils # 0 L (0.04-0.35) X 10*3/uL NRBC/100 WBC Diff 0.3 H (0.0-0.0) /100 WBCS Chloride (96-109) mmol/L Carbon Dioxide (20.0-27.5) mmol/L BUN (9.0-27.0) mg/dL Est GFR (CKD-EPI)AfAm (60.0-200.0) Est GFR (CKD-EPI)NonAf (60.0-200.0) BUN/Creatinine Ratio (12.00-20.00) Ratio Glucose (70-110) mg/dL POC Glucose (mg/dL) 137 H 122 H (75-99) mg/dL AST (14-35) U/L ALT (10-49) U/L Alkaline Phosphatase (41-126) U/L Albumin (3.8-4.9) g/dL Albumin/Globulin Ratio (1.60-3.17) g/dL 06/12/21 06/12/21 Range/Units 06:01 07:03 WBC (4.50-10.00) X 10*3/uL RBC (4.40-5.60) X 10*6/uL Hgb (13.0-17.0) g/dL MCV (80.0-97.0) fL MCHC (32.0-37.0) g/dL Absolute Nucleated RBC (0.00-0.00) X 10*3/uL Immature Gran # (0.00-0.04) X 10*3/uL Neutrophils # (1.80-7.70) X 10*3/uL Eosinophils # (0.04-0.35) X 10*3/uL NRBC/100 WBC Diff (0.0-0.0) /100 WBCS Chloride (96-109) mmol/L Carbon Dioxide 32.9 H (20.0-27.5) mmol/L BUN 46.4 H (9.0-27.0) mg/dL Est GFR (CKD-EPI)AfAm 47.8 L (60.0-200.0) Est GFR (CKD-EPI)NonAf 41.3 L (60.0-200.0) BUN/Creatinine Ratio 30.93 H (12.00-20.00) Ratio Glucose 113 H (70-110) mg/dL POC Glucose (mg/dL) 121 H (75-99) mg/dL AST 49 H (14-35) U/L ALT 67 H (10-49) U/L Alkaline Phosphatase 127 H (41-126) U/L Albumin 3.3 L (3.8-4.9) g/dL Albumin/Globulin Ratio 1.14 L (1.60-3.17) g/dL
--- NOTE | 2021-06-13 14:17 | P.PN ---
Subjective Progress Note Date: 06/13/21 This is an 86-year-old male patient of Dr. Larkin with past medical history of hypertension, hypertensive cardiovascular disease, hyperlipidemia, gastroesophageal reflux disease, diabetes mellitus type 2, obesity with obstructive sleep apnea and obesity hypoventilation syndrome, generalized osteo arthritis, chronic kidney disease stage IIIb, chronic DVT right lower extremity, patient had onset of symptoms 2 weeks ago with continued worsening of cough and shortness of breath. He has phlegm production. He has a little bit of chest pain. Patient complains of weakness and his had 3 falls at home. He presented to [facility] emergency center for evaluation found to be afebrile, heart rate 97, blood pressure 120/68, pulse ox 93%. EKG was a sinus rhythm with no acute ST changes. Chest x-ray was positive for Covid pneumonia. WBC 3.8, hemoglobin 12.4, platelet count 164. Sodium 133, BUN 21 creatinine 1.73. Blood sugar 237. ProBNP 981. Troponin 0.030. Lactic acid 1.0. Magnesium 1.5 and was replaced in the emergency center. Venous Doppler of the bilateral lower exam is negative for DVT. 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 Patient admitted to the [facility] floor, started on Lovenox, dexamethasone, vitamin supplements and consult with pulmonary medicine. patient examined bedside sitting comfortably in bed. Is currently saturating at 93% on room air otherwise vitals are stable afebrile pulse 67 respiratory 8. 19 blood pressure 116/66 magnesium has improved to 2.1 liver enzymes continues to remain elevated proBNP is normal. Patient has detailed workup of liver enzymes in the previous admission and was seen by Dr. Purcell. Fat ty hepatic infiltration was noted on hepatic ultrasound.. Continue patient on Decadron, Lovenox and supplementation. Venous Doppler suggestive of chronic DVT involving the right leg. Patient has no documentation of previous DVT and would benefit from Eliquis on discharge. will increase Lovenox to 100 subcu twice a day. His pro calcitonin was elevated he should patient on Rocephin and azithro mycin for possible overlying for bacterial infection Patient examined lying comfortably in bed. Patient endorses yellowish phlegm production and SOB, oxygen saturation mentained on 1 Litre. Continue decadon, vit supplement and lovenox with plan to initiate eliquis on discharge for chronic DVT. PT OT evaluation with possible transfer to [facility] as patient had 2 falls prior to admission . He has significant weakness from COVID Pneumonia and would benefot from rehab 06/08 patient examined lying comfortably in bed. He is coughing white phlegm associated with congestion denies any shortness of breath. Patient continues to remain on 2 L oxygen saturating 90-91% blood pressure 147/78, LDH 8:30 8B1.7 continues to improve. Blood sugar ranging from 109 to 325. Continue Decadron, vitamin supplements. Lovenox for this issue Eliquis for 1 month. patient is significantly weak and is unable to get a his activities at this point. PTOT has recommended subacute rehab. I feel patient would benefit for a few days and we have before he is discharged to his home setting. Patient will complete Augmentin twice a day for 7 days. Mucinex 1200 twice a day Tessalon Perles added at 100 mg 3 times. Patient's elected to send patient to rehab who would like to take patient home. PT OT has recommended subacute rehab due to increased weakness. Will arrange patient's oxygen with possible discharge to home with home physical therapy as per family request 06/09 patient is lying in bed appears tired and weak. Her earlier today and nurse called as patient's oxygen requirement increased from 1 L to 10 L. Patient denies any worsening shortness breath or cough or dizziness. Chest x-r ay was obtained as suggest bilateral radiculo nodular opacities suggestive of progression of Covid pneumonia. Patient is currently maintaining oxygenation 92% on 10 L of oxygen temp is 97.6 pulse 84 respiratory rate 17. Labs show worsening of information 3 markers suggesting increase of energy and she increase in CRP. No family updated on the prognosis. Await recommendation from pulmonary. Patient would benefit from Baricitinib infusion. Pulmonary recommendations awaiting 06/10 the patient examined bedside. He is currently frail looking short of breath at rest. Patient's afebrile pulse 73 that started radiating blood pressure 138/78 SIGNIFICANT 90% on 15 L high flow with nonrebreather at rest to 12,078, CRP increased to 2. Procalcitonin is normal. Patient is currently on supportive care. Discussion with pulmonary for possibility of baritinib patient has acutely decompensated. Patient's prognosis is poor 06/11: Patient remains in Covid isolation. He continues to have cough complains of chest discomfort with deep breathing. He has been on oxygen therapy with BiPAP 100% FiO2 with pulse ox of 89%. He's been afebrile, heart rate 90, respiratory rate 27, blood pressure 135/78. WBC 12.5, hemoglobin 13, platelet count 305. D-dimer 0.69. Blood sugars running between 145 and 341. AST 51, ALT 65. One dose of IV Lasix ordered. 06/12patient is seen today on the [facility] floor and continues to be in isolation. Patient is currently on BiPAP but not on airflow. Patient apparently is taking off his oxygen repeatedly. He is currently a full CODE STATUS. Dr. Larkin contacted the patient's and discussed current condition and poor prognosis and patient has been changed to no code and family may consider comfort care if he does not have improvement of his condition.patient is afebrile, heart rate 80, blood pressure 107/65, pulse ox 90%.repeat blood work reveals WBC 11.5, hemoglobin 12.9, platelet count 310. Creatinine 1.5. Blood sugars running between 120 and 190. AST 49, ALT 67, alkaline phosphatase 127. 06/13: Patient is seen today laying in bed, pulse ox 90% currently on BiPAP 06/18, FiO2 100%. He has been afebrile, heart rate 82, blood pressure 119/69. Repeat blood work reveals WBC 9.4. BUN 63 and creatinine 1.5. Blood sugars running between 83 and 242. Diverticular 2.16. LDH 1098, C-reactive protein 5.7. BUN 63 and creatinine 1.5. REVIEW OF SYSTEMS Constitutional: No fever, no chills, no night sweats. No weight change. Reports weakness, Reports fatigue. EENT: No headache. No blurred vision or double vision, no loss of vision. Reports loss of Hearing. No nasal drainage or congestion. No epistaxis. No sore throat. Lungs: Reports worsening shortness of breath, reports cough, reports sputum pr oduction. No wheezing. Cardiovascular: No chest pain, no lower extremity edema. No palpitations. No paroxysmal nocturnal dyspnea. No orthopnea. No lightheadedness or dizziness. No syncopal episodes. Abdominal: Denies abdominal pain. No nausea, vomiting. No diarrhea. No constipation. No bloody or tarry stools.. No loss of appetite. Genitourinary: No dysuria, increased frequency, urgency. No urinary retention. Musculoskeletal: No myalgias. Reports muscle weakness, Reports gait dysfunc tion, Reports falls. No back pain. No neck pain. Integumentary: No wounds, no lesions. No rash or pruritus. Neurologic: No aphasia. No facial droop. No change in mentation. No head injury. No headache. No paralysis. No paresthesia. Psychiatric: No depression. No anxiety. Endocrine: Noted abnormal blood sugars. PHYSICAL EXAMINATION Gen: This is an 86-year-old male. Patient is resting in bed. He is currently on oxygen therapy BiPAP. HEENT: Head is atraumatic, normocephalic. Pupils equal, round. Sclerae is anicteric. NECK: Supple. No JVD. No lymphadenopathy. No thyromegaly. LUNGS: Diminished with bilateral crackles. No intercostal retractions. HEART: Regular rate and rhythm. No murmur. ABDOMEN: Soft. Bowel sounds are present. No masses. No tenderness. Umbilical hernia EXTREMITIES: No pedal edema. No calf tenderness. Dorsalis pedis palpable bilaterally. NEUROLOGICAL: Patient is awake, alert and oriented x3. Cranial nerves 2 through 12 are grossly intact. ASSESSMENT AND PLAN 1. Acute hypoxic respiratory failure secondary to COVID-19 pneumonia. Continue on dexamethasone, Lovenox, vitamin supplements, consult with pulmonary medicine, oxygen therapy. Mucinex 1200 mg twice daily. Tessalon Perles 100 mg 3 times daily, continue Baricitinib. patient is not tolerating oxygen therapy and continues to remove. 2. Acute kidney injury secondary to ATN on Chronic kidney disease stage IIIb. Patient is status post 1.5 L of IV fluid. Recheck kidney function in the morning. 3. Acute on chronic Generalized weakness with multiple falls PT and OT consults added recommend CARLITO. Patient is requesting discharging patient home 4. Chronic DVT of right leg. patient is on Lanoxin 40 mg subcu daily. 5. Hypertension, hypertensive cardiovascular disease. Blood pressure is on the low side, continue lisinopril 2.5 mg daily with parameters, continue metoprolol 25 twice a day 6. Diabetes mellitus type 2 uncontrolled hyperglycemia. Continue NovoLog scale before meals and at bedtime, Levemir changed to 25 mg twice daily, NovoLog 5 units scheduled with each meal. 7. Obesity with obstructive sleep apnea and obesity hypoventilation syndrome. 8. Gastroesophageal reflux disease and GI prophylaxis. Continue omeprazole or equivalent. 9. Benign prostatic hypertrophy. Continue Flomax 0.4 mg twice daily. 10. Hyperlipidemia. Continue atorvastatin 20 mg daily at bedtime 11. DVT prophylaxis. Lovenox. Impression and plan of care have been directed as dictated by the signing physician. Augustina Washington nurse practitioner acting as scribe for signing ph ysician. Objective - Vital Signs Vital signs: Vital Signs Temp 97.8 F 06/13/21 10:01 Pulse 82 06/13/21 10:01 Resp 16 06/13/21 10:01 BP 119/69 06/13/21 10:01 Pulse Ox 90 L 06/13/21 10:01 Intake & Output 06/12/21 06/13/21 06/13/21 18:59 06:59 18:59 Other: Voiding Method Diaper # Voids 2 3 2 - Labs CBC & Chem 7: 06/13/21 06:16 06/13/21 06:16 Labs: Abnormal Lab Results - Last 24 Hours (Table) 06/12/21 06/12/21 06/12/21 Range/Units 11:35 16:32 20:48 RBC (4.30-5.90) m/uL D-Dimer (<0.60) mg/L FEU Sodium (137-145) mmol/L Chloride (98-107) mmol/L Carbon Dioxide (22-30) mmol/L BUN (9-20) mg/dL Creatinine (0.66-1.25) mg/dL POC Glucose (mg/dL) 190 H 183 H 133 H (75-99) mg/dL ALT (4-49) U/L Lactate Dehydrogenase (313-618) U/L C-Reactive Protein (<1.0) mg/dL Albumin (3.5-5.0) g/dL 06/13/21 06/13/21 06/13/21 Range/Units 06:16 06:16 06:16 RBC 4.23 L (4.30-5.90) m/uL D-Dimer 2.16 H (<0.60) mg/L FEU Sodium 134 L (137-145) mmol/L Chloride 95 L (98-107) mmol/L Carbon Dioxide 34 H (22-30) mmol/L BUN 63 H (9-20) mg/dL Creatinine 1.50 H (0.66-1.25) mg/dL POC Glucose (mg/dL) (75-99) mg/dL ALT 67 H (4-49) U/L Lactate Dehydrogenase 1098 H (313-618) U/L C-Reactive Protein 5.7 H (<1.0) mg/dL Albumin 3.2 L (3.5-5.0) g/dL
[2021-06-13] MEDS: BARICITINIB 2 MG TABLET PO SCH (15:48)
--- NOTE | 2021-06-13 16:16 | P.PN ---
Subjective Progress Note Date: 06/13/21 Principal diagnosis: Dyspnea On 06/09/2021 patient seen in follow-up on medical surgical floor. He was supposed to be discharged home today, he was doing well, he was only requiring minimal supplemental oxygen however patient became progressively hypoxic, and he is currently on 11 L of oxygen pulse ox is 88-90%, afebrile, chest x-ray was repeated showed cardiomegaly and chronic parenchymal changes with worsening bibasilar reticulonodular opacities, and the findings were consistent with COVID-19 infection progression. He was given a dose of Lasix for worsening respiratory status, his Decadron dose was increased to 6 mg twice daily, and his Lovenox has been increased to 100 mg twice daily per [facility] provider, he is also on azithromycin and Tessalon Perles. 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 Left leg was negative for DVT. His most recent d-dimer from today is 0.96 relatively stable, his ESR is 50, his inflammatory markers were sent, and his LDH is up to 1278, his CRP is 2.0. Patient fatigue, but denies any acute distress, he be breathing comfortably. On 06/11/2021 patient seen in follow-up on medical surgical floor. He is currently on BiPAP support with pressures of 12 and 6 and FiO2 of 100%, and his pulse ox is ranging between 88-90%, he is breathing fairly comfortably, his minute ventilation is 17. However patient reports off the BiPAP mask frequently. he will be tried on high flow nasal cannula or irritable. Patient was noted to be rapidly desaturating when he was being taken off even briefly for a few seconds off the BiPAP. Does have a cough, nonproductive, his been afebrile, blood pressure is been stable, started on Baricitinib yesterday, and he continues on Decadron 6 mg daily. His Lovenox dose was cut back to prophylactic dose 40 mg daily, his right lower extremity just showed chronic DVT, no acute DVT. Patient's renal profile is impaired and patient is unable to have CT angiogram to rule out possibility of PE. Follow-up d-dimer is 0.96, relatively stable, his LDH has been increasing and 2 days ago on 06/09/2021 it was up to 1278, and CRP was 2.0, Procan SR level was negative at 0.07. In addition patient received a dose of IV Lasix yesterday, and he is in negative fluid balance at 2.5 L over the last 24 hours. No lower extremity edema was noted, he still has extensive coarse bibasilar crackles at bilateral bases. On 06/12/2021 2015 follow-up on medical surgical floor, he has been on BiPAP support at 12 and 6, and Fio2 of 100%, and Airvo 60 L and 90%, and patient has been frequently removing the BiPAP mask and taking off the Airvo and desaturat ing quite low to 60%. Becomes resistant with care, becomes mildly agitated. Afebrile, blood pressure is stable at 124/79. Lung sounds are positive for diffuse crackles. He is very hard of hearing, difficult to communicate with, he is currently sitting up in a recliner, does not appear to be fluid overloaded, he is continues on prophylactic dose Lovenox 40 mg daily, his lower extremity Dopplers only showed evidence of chronic DVT in the right lower extremity, no swelling in bilateral lower extremities. He continues on Baricitinib, on Decadron, multivitamins. Last chest x-ray from 06/02/2021 showed evidence of some mild heart failure. Today's labs have been reviewed, with some condoms 11 .5, hemoglobin is 12.9, sodium is 140, potassium is 4.4, chloride is 96, CO2 32, BUN is 46, creatinine is 1.5 On 06/13/2021 patient seen in follow-up on medical surgical floor, he is currently resting comfortably in bed, he is on BiPAP with pressures of 12 and 6 and FiO2 of 100%, he is breathing fairly comfortably, he is very hard of hearing, he does have his hearing aids in however despite the hearing aids he still cannot hear. He Does not appear to be in any acute distress, he starting BiPAP support better on today's exam, he rapidly desaturates when the mask is removed, patient has been alternating between high flow per Airvo a 60 L and FiO2 of 85% at mealtimes, and goes back on BiPAP support after the meals, he remains in bed today, he has been afebrile, blood pressure has been stable. Today's chest x-ray shows worsening left lower lobe infiltrate, and a mild infiltrate at the right base related for atelectasis and possibility of pneumonia. Patient is positive for COVID 19, he currently remains on baricitinib, Decadron 6 mg daily, Lovenox 40 mg daily, and COVID 19 vitamins. His labs have been reviewed showing white blood cell count of 9.4, improved from yesterday, hemoglobin is 13.6, his d-dimer is 2.16, sodium is 134, potassium is 4.3, chloride is 95, CO2 34, B1 is 63 and creatinine is 1.5. LDH is improved and is down to 1098, CRP is 5.7, increased compared to last value, Procan SR level was negative at 0.07. Patient's primary care physician had a conversation with patient's family regarding patient's condition and likely poor prognosis, code status has been changed to DO NOT RESUSCITATE, patient wishes to continue with supportive treatment at this time. Objective - Vital Signs Vital signs: Vital Signs Temp 97.6 F 06/13/21 14:17 Pulse 77 06/13/21 14:17 Resp 16 06/13/21 14:17 BP 124/69 06/13/21 14:17 Pulse Ox 92 L 06/13/21 14:17 Intake & Output 06/12/21 06/13/21 06/13/21 18:59 06:59 18:59 Weight 124.738 kg Other: Voiding Method Diaper # Voids 2 3 2 - Exam GENERAL EXAM: Patient looks more awake on today's exam, resting in bed, currently on BiPAP support with pressures of 12 and 6 and FiO2 of 100% patient is a very difficult to communicate with related to the severe hearing deficit, even with hearing aids HEAD: Normocephalic/atraumatic. EYES: Normal reaction of pupils, equal size. Conjunctiva pink, sclera white. NOSE: Clear with pink turbinates. THROAT: No erythema or exudates. NECK: No masses, no JVD, no thyroid enlargement, no adenopathy. CHEST: No chest wall deformity. Symmetrical expansion. LUNGS: Equal air entry with basilar crackles CVS: Regular rate and rhythm, normal S1 and S2, no gallops, no murmurs, no rubs ABDOMEN: Soft, nontender. No hepatosplenomegaly, normal bowel sounds, no guarding or rigidity. EXTREMITIES: No clubbing, edema in the right lower extremity no cyanosis, 2+ pulses and upper and lower extremities. MUSCULOSKELETAL: Muscle strength and tone normal. SPINE: No scoliosis or deformity SKIN: No rashes CENTRAL NERVOUS SYSTEM: Alert and oriented -1. No focal deficits, tone is normal in all 4 extremities. PSYCHIATRIC: Alert and oriented -1. Appropriate affect. Intact judgment and insight. - Labs CBC & Chem 7: 06/13/21 06:16 06/13/21 06:16 Labs: Abnormal Lab Results - Last 24 Hours (Table) 06/12/21 06/12/21 06/13/21 Range/Units 16:32 20:48 06:16 RBC 4.23 L (4.30-5.90) m/uL D-Dimer (<0.60) mg/L FEU Sodium (137-145) mmol/L Chloride (98-107) mmol/L Carbon Dioxide (22-30) mmol/L BUN (9-20) mg/dL Creatinine (0.66-1.25) mg/dL POC Glucose (mg/dL) 183 H 133 H (75-99) mg/dL ALT (4-49) U/L Lactate Dehydrogenase (313-618) U/L C-Reactive Protein (<1.0) mg/dL Albumin (3.5-5.0) g/dL 06/13/21 06/13/21 06/13/21 Range/Units 06:16 06:16 11:37 RBC (4.30-5.90) m/uL D-Dimer 2.16 H (<0.60) mg/L FEU Sodium 134 L (137-145) mmol/L Chloride 95 L (98-107) mmol/L Carbon Dioxide 34 H (22-30) mmol/L BUN 63 H (9-20) mg/dL Creatinine 1.50 H (0.66-1.25) mg/dL POC Glucose (mg/dL) 242 H (75-99) mg/dL ALT 67 H (4-49) U/L Lactate Dehydrogenase 1098 H (313-618) U/L C-Reactive Protein 5.7 H (<1.0) mg/dL Albumin 3.2 L (3.5-5.0) g/dL Assessment and Plan Plan: Assessment: #1. Acute hypoxic respiratory failure, related to acute COVID-19 pneumonia, onset of symptoms was 2 weeks prior to presentation, patient is non-vaccinated against COVID 19, outside the window for Remdesivir, and will be treated supportively with a combination of anticoagulation, Decadron and multivitamins. His hypoxia has progressed, patient was started on Baricitinib on 06/10/2021 #2. Elevated d-dimer, lower extremity Doppler showed a chronic DVT in the right lower extremity, therapeutic doses of Lovenox or cut back and patient is currently back on prophylactic Lovenox 40 #3. Increased LFTs, related to viral pneumonia #4. Hypertension #5. Hyperlipidemia #6. Obstructive sleep apnea #7. Diabetes mellitus type 2 #8. Obesity with obesity hypoventilation syndrome #9. Chronic kidney disease stage IIIB #10. History of right lower extremity DVT not on any chronic anticoagulation Plan: Patient is tolerating BiPAP support, he is alternating with high flow Airvo at 60 L and FiO2 of 85%, Seems to be tolerating it better today, but she does remain BiPAP support for the most part and does desaturate very easily with any exertion Today's labs have been reviewed, inflammatory markers seem to be improved although still elevated We'll continue current medical treatment, and patient has been maximized as far as medical treatment for the COVID-19 pneumonia He continues on Baricitinib, Decadron and Lovenox Overall prognosis is very guarded The patient's family has decided to make the patient DO NOT RESUSCITATE and wishes to proceed with supportive care right now We will continue with supportive care and monitor for any improvement or worsening in his condition I performed a history & physical examination of the patient and discussed their management with my nurse practitioner, Jennifer Cespedes. I reviewed the nurse practitioner's note and agree with the documented findings and plan of care. Lung sounds are positive for diminished breath sounds throughout the lung vázquez. The findings and the impression was discussed with the patient. I attest to the documentation by the nurse practitioner. Time with Patient: Less than 30
[2021-06-13 17:01] LABS: Glucose,Whole Blood 158 mg/dL (75-99)
[2021-06-13 20:11] LABS: Glucose,Whole Blood 216 mg/dL (75-99)
[2021-06-13] MEDS: ATORVASTATIN 20 MG TAB PO SCH (21:03)
[2021-06-14 07:31] LABS: Glucose,Whole Blood 52 mg/dL (75-99)
[2021-06-14] MEDS: INSULIN ASPART (NovoLOG) 100 UNIT/ML VIAL SQ SCH ×6 (07:33→21:00)
[2021-06-14] MEDS: METOPROLOL TARTRATE 25 MG TAB PO SCH ×2 (07:37→20:59)
[2021-06-14] MEDS: ENOXAPARIN 40 MG/0.4 ML SYRINGE SQ SCH (07:37)
[2021-06-14] MEDS: TAMSULOSIN 0.4 MG CAP.ER.24H PO SCH ×2 (07:37→15:53)
[2021-06-14] MEDS: ZINC SULFATE 220 MG CAP PO SCH (07:37)
[2021-06-14] MEDS: ASCORBIC ACID 500 MG TAB PO SCH (07:37)
[2021-06-14] MEDS: CHOLECALCIFEROL 25 MCG (1000 IU) TABLET PO SCH (07:37)
[2021-06-14] MEDS: guaiFENesin 600 MG TABLET.ER PO SCH ×2 (07:37→20:59)
[2021-06-14] MEDS: PANTOPRAZOLE 40 MG TABLET PO SCH (07:37)
[2021-06-14] MEDS: DEXAMETHASONE SOD PHOSPHATE 10 MG/ML 1 ML VIAL IVP SCH (07:38)
[2021-06-14 08:07] LABS: Glucose,Whole Blood 91 mg/dL (75-99)
[2021-06-14 09:16] LABS: Basophils % (A) 0 %; Eosinophils % (A) 0 %; HCT 41.6 % (39.0-53.0); HGB 13.5 gm/dL (13.0-17.5); Lymphocytes # (A) 1.5 k/uL (1.0-4.8); Lymphocytes % (A) 11 %; MCH 31.5 pg (25.0-35.0); MCHC 32.4 g/dL (31.0-37.0); MCV 97.1 fL (80.0-100.0); Mean Platelet Volume 8.1; Monocytes # (A) 0.4 k/uL (0-1.0); Monocytes % (A) 3 %; Neutrophils # (A) 11.6 k/uL (1.3-7.7); Neutrophils % (A) 84 %; Platelet Count 336 k/uL (150-450); RBC 4.29 m/uL (4.30-5.90); RDW 12.8 % (11.5-15.5); WBC 13.7 k/uL (3.8-10.6)
[2021-06-14 09:39] LABS: ALT 53 U/L (4-49); AST 45 U/L (17-59); African American GFR (CKD) 49 (>60 ml/min/1.73 sqM); Albumin 3.3 g/dL (3.5-5.0); Alkaline Phosphatase 126 U/L (38-126); Anion Gap 10 mmol/L; Blood Urea Nitrogen 61 mg/dL (9-20); Calcium 9.2 mg/dL (8.4-10.2); Carbon Dioxide 32 mmol/L (22-30); Chloride 97 mmol/L (98-107); Globulin 3.3 g/dL; Glucose 112 mg/dL (74-99); Non-African American GFR(CKD) 42 (>60 ml/min/1.73 sqM); Potassium 4.1 mmol/L (3.5-5.1); Sodium 139 mmol/L (137-145); Total Bilirubin 0.7 mg/dL (0.2-1.3); Total Protein 6.6 g/dL (6.3-8.2)
[2021-06-14] MEDS: INSULIN DETEMIR (LEVEMIR) 100 UNIT/ML SYR SQ SCH ×2 (10:14→20:58)
[2021-06-14 11:56] LABS: Glucose,Whole Blood 126 mg/dL (75-99)
--- NOTE | 2021-06-14 12:58 | P.PN ---
Subjective Progress Note Date: 06/14/21 On 06/09/2021 patient seen in follow-up on medical surgical floor. He was supposed to be discharged home today, he was doing well, he was only requiring minimal supplemental oxygen however patient became progressively hypoxic, and he is currently on 11 L of oxygen pulse ox is 88-90%, afebrile, chest x-ray was repeated showed cardiomegaly and chronic parenchymal changes with worsening bibasilar reticulonodular opacities, and the findings were consistent with COVID-19 infection progression. He was given a dose of Lasix for worsening respiratory status, his Decadron dose was increased to 6 mg twice daily, and his Lovenox has been increased to 100 mg twice daily per [facility] provider, he is also on azithromycin and Tessalon Perles. 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 Left leg was negative for DVT. His most recent d-dimer from today is 0.96 relatively stable, his ESR is 50, his inflammatory markers were sent, and his LDH is up to 1278, his CRP is 2.0. Patient fatigue, but denies any acute distress, he be breathing comfortably. On 06/11/2021 patient seen in follow-up on medical surgical floor. He is currently on BiPAP support with pressures of 12 and 6 and FiO2 of 100%, and his pulse ox is ranging between 88-90%, he is breathing fairly comfortably, his minute ventilation is 17. However patient reports off the BiPAP mask frequently. he will be tried on high flow nasal cannula or irritable. Patient was noted to be rapidly desaturating when he was being taken off even briefly for a few seconds off the BiPAP. Does have a cough, nonproductive, his been afebrile, blood pressure is been stable, started on Baricitinib yesterday, and he continues on Decadron 6 mg daily. His Lovenox dose was cut back to prophylactic dose 40 mg daily, his right lower extremity just showed chronic DVT, no acute DVT. Patient's renal profile is impaired and patient is unable to have CT angiogram to rule out possibility of PE. Follow-up d-dimer is 0.96, relatively stable, his LDH has been increasing and 2 days ago on 06/09/2021 it was up to 1278, and CRP was 2.0, Procan SR level was negative at 0.07. In addition patient received a dose of IV Lasix yesterday, and he is in negative fluid balance at 2.5 L over the last 24 hours. No lower extremity edema was noted, he still has extensive coarse bibasilar crackles at bilateral bases. On 06/12/2021 2015 follow-up on medical surgical floor, he has been on BiPAP support at 12 and 6, and Fio2 of 100%, and Airvo 60 L and 90%, and patient has been frequently removing the BiPAP mask and taking off the Airvo and desaturating quite low to 60%. Becomes resistant with care, becomes mildly agitated. Afebrile, blood pressure is stable at 124/79. Lung sounds are positive for diffuse crackles. He is very hard of hearing, difficult to communicate with, he is currently sitting up in a recliner, does not appear to be fluid overloaded, he is continues on prophylactic dose Lovenox 40 mg daily, his lower extremity Dopplers only showed evidence of chronic DVT in the right lower extremity, no swelling in bilateral lower extremities. He continues on Baricitinib, on Decadron, multivitamins. Last chest x-ray from 06/02/2021 showed evidence of some mild heart failure. Today's labs have been reviewed, with some condoms 11.5, hemoglobin is 12.9, sodium is 140, potassium is 4.4, chloride is 96, CO2 32, BUN is 46, creatinine is 1.5 On 06/13/2021 patient seen in follow-up on medical surgical floor, he is currently resting comfortably in bed, he is on BiPAP with pressures of 12 and 6 and FiO2 of 100%, he is breathing fairly comfortably, he is very hard of hearing, he does have his hearing aids in however despite the hearing aids he still cannot hear. He Does not appear to be in any acute distress, he starting BiPAP support better on today's exam, he rapidly desaturates when the mask is removed, patient has been alternating between high flow per Airvo a 60 L and FiO2 of 85% at mealtimes, and goes back on BiPAP support after the meals, he remains in bed today, he has been afebrile, blood pressure has been stable. Today's chest x-ray shows worsening left lower lobe infiltrate, and a mild infiltrate at the right base related for atelectasis and possibility of pneu monia. Patient is positive for COVID 19, he currently remains on baricitinib, Decadron 6 mg daily, Lovenox 40 mg daily, and COVID 19 vitamins. His labs have been reviewed showing white blood cell count of 9.4, improved from yesterday, hemoglobin is 13.6, his d-dimer is 2.16, sodium is 134, potassium is 4.3, chloride is 95, CO2 34, B1 is 63 and creatinine is 1.5. LDH is improved and is down to 1098, CRP is 5.7, increased compared to last value, Procan SR level was negative at 0.07. Patient's primary care physician had a conversation with patient's family regarding patient's condition and likely poor prognosis, code status has been changed to DO NOT RESUSCITATE, patient wishes to continue with supportive treatment at this time. 06/14/2021, the patient is being seen for a follow-up. He is quite lethargic and sleeps most of the time. He seems to be essentially BiPAP dependent at this point and the BiPAP is currently at a pressure of 12/5 cm of water with an FiO2 of 100%. Degenerated tidal volume is around 400 and the respiratory rate is around 30 with a minute ventilation of around 12 L per minute. The current pulse ox is around 90%. Oral intake is minimal as the patient is strictly BiPAP dependent. He is quite debilitated and weak. His inflammatory markers were still elevated from yesterday. He is a DNR/DNI CODE STATUS. He is on a combination of Decadron 6 mg an Baricitinib per protocol and the patient is also on Lovenox 40 mg subcu for DVT prophylaxis. No other significant events overnight. He is difficult to communicate to the patient because of his inferior hearing.The blood work shows a white cell count of 13.7 with hemoglobin of 13.5, his d-dimer from yesterday was at 2.16, sodium is at 139 with a BUN of 61 and creatinine of 1.4 which is essentially stable compared to yesterday and there is no significant interval change on his lab values. Objective - Vital Signs Vital signs: Vital Signs Temp 97.2 F L 06/14/21 10:08 Pulse 80 06/14/21 10:08 Resp 26 H 06/14/21 10:08 BP 138/72 06/14/21 10:08 Pulse Ox 86 L 06/14/21 10:08 Intake & Output 06/13/21 06/14/21 06/14/21 18:59 06:59 18:59 Weight 124.738 kg Other: # Voids 2 3 2 - Exam GENERAL EXAM: Patient looks more awake on today's exam, resting in bed, currently on BiPAP support with pressures of 12 and 6 and FiO2 of 100% patient i s a very difficult to communicate with related to the severe hearing deficit, even with hearing aids HEAD: Normocephalic/atraumatic. EYES: Normal reaction of pupils, equal size. Conjunctiva pink, sclera white. NOSE: Clear with pink turbinates. THROAT: No erythema or exudates. NECK: No masses, no JVD, no thyroid enlargement, no adenopathy. CHEST: No chest wall deformity. Symmetrical expansion. LUNGS: Equal air entry with basilar crackles CVS: Regular rate and rhythm, normal S1 and S2, no gallops, no murmurs, no rubs ABDOMEN: Soft, nontender. No hepatosplenomegaly, normal bowel sounds, no gu arding or rigidity. EXTREMITIES: No clubbing, edema in the right lower extremity no cyanosis, 2+ pul ses and upper and lower extremities. MUSCULOSKELETAL: Muscle strength and tone normal. SPINE: No scoliosis or deformity SKIN: No rashes CENTRAL NERVOUS SYSTEM: Alert and oriented -1. No focal deficits, tone is normal in all 4 extremities. PSYCHIATRIC: Alert and oriented -1. Appropriate affect. Intact judgment and insight. - Labs CBC & Chem 7: 06/14/21 08:13 06/14/21 08:13 Labs: Abnormal Lab Results - Last 24 Hours (Table) 06/13/21 06/13/21 06/14/21 Range/Units 17:01 20:09 07:29 WBC (3.8-10.6) k/uL RBC (4.30-5.90) m/uL Neutrophils # (1.3-7.7) k/uL Chloride (98-107) mmol/L Carbon Dioxide (22-30) mmol/L BUN (9-20) mg/dL Creatinine (0.66-1.25) mg/dL Glucose (74-99) mg/dL POC Glucose (mg/dL) 158 H 216 H 52 L (75-99) mg/dL ALT (4-49) U/L Albumin (3.5-5.0) g/dL 06/14/21 06/14/21 06/14/21 Range/Units 08:13 08:13 11:55 WBC 13.7 H (3.8-10.6) k/uL RBC 4.29 L (4.30-5.90) m/uL Neutrophils # 11.6 H (1.3-7.7) k/uL Chloride 97 L (98-107) mmol/L Carbon Dioxide 32 H (22-30) mmol/L BUN 61 H (9-20) mg/dL Creatinine 1.47 H (0.66-1.25) mg/dL Glucose 112 H (74-99) mg/dL POC Glucose (mg/dL) 126 H (75-99) mg/dL ALT 53 H (4-49) U/L Albumin 3.3 L (3.5-5.0) g/dL Assessment and Plan Plan: #1. Acute hypoxic respiratory failure, related to acute COVID-19 pneumonia, onset of symptoms was 2 weeks prior to presentation, patient is non-vaccinated against COVID 19, outside the window for Remdesivir, and will be treated supportively with a combination of anticoagulation, Decadron and multivitamins. His hypoxia has progressed, patient was started on Baricitinib on 06/10/2021 #2. Elevated d-dimer, lower extremity Doppler showed a chronic DVT in the right lower extremity, therapeutic doses of Lovenox or cut back and patient is currently back on prophylactic Lovenox 40 #3. Increased LFTs, related to viral pneumonia #4. Hypertension #5. Hyperlipidemia #6. Obstructive sleep apnea #7. Diabetes mellitus type 2 #8. Obesity with obesity hypoventilation syndrome #9. Chronic kidney disease stage IIIB #10. History of right lower extremity DVT not on any chronic anticoagulation Plan: No changes condition in general. The patient remains BiPAP dependent for now. The patient remains hypoxic with a BiPAP pressure of 12/6 with an FiO2 of 100% and the patient's pulse ox of 90%. We'll give the BiPAP for now. He is unable to tolerate Airvo. Continue the combination of Decadron on Baricitinib and Lovenox. Blood work was reviewed. Prognosis especially poor based on the above-mentioned comorbidities. We'll continue to follow. Treatment essentially supportive. We'll continue BiPAP for respiratory support.
--- NOTE | 2021-06-14 14:57 | P.PN ---
Subjective Progress Note Date: 06/14/21 This is an 86-year-old male patient of Dr. Larkin with past medical history of hypertension, hypertensive cardiovascular disease, hyperlipidemia, gastroesophageal reflux disease, diabetes mellitus type 2, obesity with obstructive sleep apnea and obesity hypoventilation syndrome, generalized osteo arthritis, chronic kidney disease stage IIIb, chronic DVT right lower extremity, patient had onset of symptoms 2 weeks ago with continued worsening of cough and shortness of breath. He has phlegm production. He has a little bit of chest pain. Patient complains of weakness and his had 3 falls at home. He presented to [facility] emergency center for evaluation found to be afebrile, heart rate 97, blood pressure 120/68, pulse ox 93%. EKG was a sinus rhythm with no acute ST changes. Chest x-ray was positive for Covid pneumonia. WBC 3.8, hemoglobin 12.4, platelet count 164. Sodium 133, BUN 21 creatinine 1.73. Blood sugar 237. ProBNP 981. Troponin 0.030. Lactic acid 1.0. Magnesium 1.5 and was replaced in the emergency center. Venous Doppler of the bilateral lower exam is negative for DVT. 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 Patient admitted to the [facility] floor, started on Lovenox, dexamethasone, vitamin supplements and consult with pulmonary medicine. patient examined bedside sitting comfortably in bed. Is currently saturating at 93% on room air otherwise vitals are stable afebrile pulse 67 respiratory 8. 19 blood pressure 116/66 magnesium has improved to 2.1 liver enzymes continues to remain elevated proBNP is normal. Patient has detailed workup of liver enzymes in the previous admission and was seen by Dr. Purcell. Fat ty hepatic infiltration was noted on hepatic ultrasound.. Continue patient on Decadron, Lovenox and supplementation. Venous Doppler suggestive of chronic DVT involving the right leg. Patient has no documentation of previous DVT and would benefit from Eliquis on discharge. will increase Lovenox to 100 subcu twice a day. His pro calcitonin was elevated he should patient on Rocephin and azithro mycin for possible overlying for bacterial infection Patient examined lying comfortably in bed. Patient endorses yellowish phlegm production and SOB, oxygen saturation mentained on 1 Litre. Continue decadon, vit supplement and lovenox with plan to initiate eliquis on discharge for chronic DVT. PT OT evaluation with possible transfer to [facility] as patient had 2 falls prior to admission . He has significant weakness from COVID Pneumonia and would benefot from rehab 06/08 patient examined lying comfortably in bed. He is coughing white phlegm associated with congestion denies any shortness of breath. Patient continues to remain on 2 L oxygen saturating 90-91% blood pressure 147/78, LDH 8:30 8B1.7 continues to improve. Blood sugar ranging from 109 to 325. Continue Decadron, vitamin supplements. Lovenox for this issue Eliquis for 1 month. patient is significantly weak and is unable to get a his activities at this point. PTOT has recommended subacute rehab. I feel patient would benefit for a few days and we have before he is discharged to his home setting. Patient will complete Augmentin twice a day for 7 days. Mucinex 1200 twice a day Tessalon Perles added at 100 mg 3 times. Patient's elected to send patient to rehab who would like to take patient home. PT OT has recommended subacute rehab due to increased weakness. Will arrange patient's oxygen with possible discharge to home with home physical therapy as per family request 06/09 patient is lying in bed appears tired and weak. Her earlier today and nurse called as patient's oxygen requirement increased from 1 L to 10 L. Patient denies any worsening shortness breath or cough or dizziness. Chest x-r ay was obtained as suggest bilateral radiculo nodular opacities suggestive of progression of Covid pneumonia. Patient is currently maintaining oxygenation 92% on 10 L of oxygen temp is 97.6 pulse 84 respiratory rate 17. Labs show worsening of information 3 markers suggesting increase of energy and she increase in CRP. No family updated on the prognosis. Await recommendation from pulmonary. Patient would benefit from Baricitinib infusion. Pulmonary recommendations awaiting 06/10 the patient examined bedside. He is currently frail looking short of breath at rest. Patient's afebrile pulse 73 that started radiating blood pressure 138/78 SIGNIFICANT 90% on 15 L high flow with nonrebreather at rest to 12,078, CRP increased to 2. Procalcitonin is normal. Patient is currently on supportive care. Discussion with pulmonary for possibility of baritinib patient has acutely decompensated. Patient's prognosis is poor 06/11: Patient remains in Covid isolation. He continues to have cough complains of chest discomfort with deep breathing. He has been on oxygen therapy with BiPAP 100% FiO2 with pulse ox of 89%. He's been afebrile, heart rate 90, respiratory rate 27, blood pressure 135/78. WBC 12.5, hemoglobin 13, platelet count 305. D-dimer 0.69. Blood sugars running between 145 and 341. AST 51, ALT 65. One dose of IV Lasix ordered. 06/12patient is seen today on the [facility] floor and continues to be in isolation. Patient is currently on BiPAP but not on airflow. Patient apparently is taking off his oxygen repeatedly. He is currently a full CODE STATUS. Dr. Larkin contacted the patient's and discussed current condition and poor prognosis and patient has been changed to no code and family may consider comfort care if he does not have improvement of his condition.patient is afebrile, heart rate 80, blood pressure 107/65, pulse ox 90%.repeat blood work reveals WBC 11.5, hemoglobin 12.9, platelet count 310. Creatinine 1.5. Blood sugars running between 120 and 190. AST 49, ALT 67, alkaline phosphatase 127. 06/13: Patient is seen today laying in bed, pulse ox 90% currently on BiPAP 06/18, FiO2 100%. He has been afebrile, heart rate 82, blood pressure 119/69. Repeat blood work reveals WBC 9.4. BUN 63 and creatinine 1.5. Blood sugars running between 83 and 242. Diverticular 2.16. LDH 1098, C-reactive protein 5.7. BUN 63 and creatinine 1.5. 06/14: Sugars are running between 52 and 91, Lantus decreased from 25 units to units twice day and NovoLog scheduled with meals will be discontinued. Patient is not able to eat due to desating on AirVo . He is taking Ensure supplement. Also ask is running 86-91% on 100% BiPAP. He has been afebrile, heart rate 70s and 80s, respiratory rate 26. WBC 13.7. BUN 61 creatinine 1.47. Repeat chest x-ray from yesterday revealed worsening left lower lobe infiltrate. Mild infiltrate at the right base. Correlate for atelectasis and pneumonia. REVIEW OF SYSTEMS Constitutional: No fever, no chills, no night sweats. No weight change. Reports weakness, Reports fatigue. EENT: No headache. No blurred vision or double vision, no loss of vision. Reports loss of Hearing. No nasal drainage or congestion. No epistaxis. No sore throat. Lungs: Reports worsening shortness of breath, reports cough, reports sputum production. No wheezing. Cardiovascular: No chest pain, no lower extremity edema. No palpitations. No paroxysmal nocturnal dyspnea. No orthopnea. No lightheadedness or dizziness. No syncopal episodes. Abdominal: Denies abdominal pain. No nausea, vomiting. No diarrhea. No constipation. No bloody or tarry stools. No loss of appetite. Genitourinary: No dysuria, increased frequency, urgency. No urinary retention. Musculoskeletal: No myalgias. Reports muscle weakness, Reports gait dysfunction, Reports falls. No back pain. No neck pain. Integumentary: No wounds, no lesions. No rash or pruritus. Neurologic: No aphasia. No facial droop. No change in mentation. No head injury. No headache. No paralysis. No paresthesia. Psychiatric: No depression. No anxiety. Endocrine: Noted abnormal blood sugars. PHYSICAL EXAMINATION Gen: This is an 86-year-old male. Patient is resting in bed. He is currently on oxygen therapy BiPAP and easily desaturate's. HEENT: Head is atraumatic, normocephalic. Pupils equal, round. Sclerae is anicteric. NECK: Supple. No JVD. No lymphadenopathy. No thyromegaly. LUNGS: Diminished with bilateral crackles. No intercostal retractions. HEART: Regular rate and rhythm. No murmur. ABDOMEN: Soft. Bowel sounds are present. No masses. No tenderness. Umbilical hernia EXTREMITIES: No pedal edema. No calf tenderness. Dorsalis pedis palpable bilaterally. NEUROLOGICAL: Patient is awake, alert and oriented x3. Cranial nerves 2 through 12 are grossly intact. ASSESSMENT AND PLAN 1. Acute hypoxic respiratory failure secondary to COVID-19 pneumonia. Continue on dexamethasone, Lovenox, vitamin supplements, consult with pulmonary medicine, oxygen therapy. Mucinex 1200 mg twice daily. Tessalon Perles 100 mg 3 times daily, continue Baricitinib. patient is not tolerating oxygen therapy and continues to remove. 2. Acute kidney injury secondary to ATN on Chronic kidney disease stage IIIb. Patient is off IV fluids. 3. Acute on chronic Generalized weakness with multiple falls PT and OT consults added recommend CARLITO. Patient is requesting discharging patient home 4. Chronic DVT of right leg. patient is on Lovenox 40 mg subcu daily. 5. Hypertension, hypertensive cardiovascular disease. Blood pressure is on the low side, continue lisinopril 2.5 mg daily with parameters, continue metopr olol 25 twice a day 6. Diabetes mellitus type 2 uncontrolled hyperglycemia and hypoglycemia. Cont inue NovoLog scale before meals and at bedtime, Levemir decreased to 20 mg twice daily, NovoLog scheduled discontinued. 7. Obesity with obstructive sleep apnea and obesity hypoventilation syndrome. 8. Gastroesophageal reflux disease and GI prophylaxis. Continue omeprazole or equivalent. 9. Benign prostatic hypertrophy. Continue Flomax 0.4 mg twice daily. 10. Hyperlipidemia. Continue atorvastatin 20 mg daily at bedtime 11. DVT prophylaxis. Lovenox. Impression and plan of care have been directed as dictated by the signing physician. Augustina Washington nurse practitioner acting as scribe for signing physician. Objective - Vital Signs Vital signs: Vital Signs Temp 97.2 F L 06/14/21 10:08 Pulse 80 06/14/21 10:08 Resp 26 H 06/14/21 10:08 BP 138/72 06/14/21 10:08 Pulse Ox 86 L 06/14/21 10:08 Intake & Output 06/13/21 06/14/21 06/14/21 18:59 06:59 18:59 Weight 124.738 kg Other: # Voids 2 3 - Labs CBC & Chem 7: 06/14/21 08:13 06/14/21 08:13 Labs: Abnormal Lab Results - Last 24 Hours (Table) 06/13/21 06/13/21 06/13/21 Range/Units 11:37 17:01 20:09 WBC (3.8-10.6) k/uL RBC (4.30-5.90) m/uL Neutrophils # (1.3-7.7) k/uL Chloride (98-107) mmol/L Carbon Dioxide (22-30) mmol/L BUN (9-20) mg/dL Creatinine (0.66-1.25) mg/dL Glucose (74-99) mg/dL POC Glucose (mg/dL) 242 H 158 H 216 H (75-99) mg/dL ALT (4-49) U/L Albumin (3.5-5.0) g/dL 06/14/21 06/14/21 06/14/21 Range/Units 07:29 08:13 08:13 WBC 13.7 H (3.8-10.6) k/uL RBC 4.29 L (4.30-5.90) m/uL Neutrophils # 11.6 H (1.3-7.7) k/uL Chloride 97 L (98-107) mmol/L Carbon Dioxide 32 H (22-30) mmol/L BUN 61 H (9-20) mg/dL Creatinine 1.47 H (0.66-1.25) mg/dL Glucose 112 H (74-99) mg/dL POC Glucose (mg/dL) 52 L (75-99) mg/dL ALT 53 H (4-49) U/L Albumin 3.3 L (3.5-5.0) g/dL
[2021-06-14] MEDS: BARICITINIB 2 MG TABLET PO SCH (15:53)
[2021-06-14 16:33] LABS: Glucose,Whole Blood 92 mg/dL (75-99)
[2021-06-14 18:56] LABS: C Reactive Protein 3.2 mg/dL (0.00-0.80)
[2021-06-14] MEDS: ATORVASTATIN 20 MG TAB PO SCH (20:59)
[2021-06-14 21:01] LABS: Glucose,Whole Blood 143 mg/dL (75-99)
--- NOTE | 2021-06-15 07:01 | XR ---
EXAMINATION TYPE: XR chest 1V portable DATE OF EXAM: 06/15/2021 CLINICAL HISTORY: Difficulty breathing and covid. TECHNIQUE: Single AP portable semiupright view of the chest is obtained. COMPARISON: Chest x-ray from 2 days earlier FINDINGS: Left greater than right bibasilar and left hilar opacities. Low lung volumes. Stable cardi omegaly. Underlying scoliosis with spurring in the spine. Left posterior third rib deformity redemons trated. IMPRESSION: Low lung volumes and cardiomegaly with left greater than right bilateral multifocal lower lung opacities consistent with covid-19 infection, no significant change from most recent x-ray.
[2021-06-15 07:10] LABS: Glucose,Whole Blood 59 mg/dL (75-99)
[2021-06-15] MEDS: INSULIN ASPART (NovoLOG) 100 UNIT/ML VIAL SQ SCH ×4 (07:15→21:25)
[2021-06-15 07:30] LABS: Glucose,Whole Blood 67 mg/dL (75-99)
[2021-06-15 07:37] LABS: Glucose,Whole Blood 117 mg/dL (75-99)
[2021-06-15] MEDS: PANTOPRAZOLE 40 MG TABLET PO SCH (08:01)
[2021-06-15] MEDS: DEXAMETHASONE SOD PHOSPHATE 10 MG/ML 1 ML VIAL IVP SCH (08:01)
[2021-06-15] MEDS: CHOLECALCIFEROL 25 MCG (1000 IU) TABLET PO SCH (08:01)
[2021-06-15] MEDS: ZINC SULFATE 220 MG CAP PO SCH (08:01)
[2021-06-15] MEDS: TAMSULOSIN 0.4 MG CAP.ER.24H PO SCH ×2 (08:01→15:49)
[2021-06-15] MEDS: ASCORBIC ACID 500 MG TAB PO SCH (08:01)
[2021-06-15] MEDS: METOPROLOL TARTRATE 25 MG TAB PO SCH ×2 (08:01→21:24)
[2021-06-15] MEDS: ENOXAPARIN 40 MG/0.4 ML SYRINGE SQ SCH (08:01)
[2021-06-15] MEDS: guaiFENesin 600 MG TABLET.ER PO SCH ×2 (08:02→21:24)
[2021-06-15] MEDS: INSULIN DETEMIR (LEVEMIR) 100 UNIT/ML SYR SQ SCH ×2 (08:02→21:24)
[2021-06-15 11:36] LABS: Glucose,Whole Blood 181 mg/dL (75-99)
[2021-06-15 11:50] LABS: C Reactive Protein 3.2 mg/dL (0.00-0.80)
--- NOTE | 2021-06-15 13:12 | P.PN ---
Subjective Progress Note Date: 06/15/21 On 06/09/2021 patient seen in follow-up on medical surgical floor. He was supposed to be discharged home today, he was doing well, he was only requiring minimal supplemental oxygen however patient became progressively hypoxic, and he is currently on 11 L of oxygen pulse ox is 88-90%, afebrile, chest x-ray was repeated showed cardiomegaly and chronic parenchymal changes with worsening bibasilar reticulonodular opacities, and the findings were consistent with COVID-19 infection progression. He was given a dose of Lasix for worsening respiratory status, his Decadron dose was increased to 6 mg twice daily, and his Lovenox has been increased to 100 mg twice daily per [facility] provider, he is also on azithromycin and Tessalon Perles. 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 Left leg was negative for DVT. His most recent d-dimer from today is 0.96 relatively stable, his ESR is 50, his inflammatory markers were sent, and his LDH is up to 1278, his CRP is 2.0. Patient fatigue, but denies any acute distress, he be breathing comfortably. On 06/11/2021 patient seen in follow-up on medical surgical floor. He is currently on BiPAP support with pressures of 12 and 6 and FiO2 of 100%, and his pulse ox is ranging between 88-90%, he is breathing fairly comfortably, his minute ventilation is 17. However patient reports off the BiPAP mask frequently. he will be tried on high flow nasal cannula or irritable. Patient was noted to be rapidly desaturating when he was being taken off even briefly for a few seconds off the BiPAP. Does have a cough, nonproductive, his been afebrile, blood pressure is been stable, started on Baricitinib yesterday, and he continues on Decadron 6 mg daily. His Lovenox dose was cut back to prophylactic dose 40 mg daily, his right lower extremity just showed chronic DVT, no acute DVT. Patient's renal profile is impaired and patient is unable to have CT angiogram to rule out possibility of PE. Follow-up d-dimer is 0.96, relatively stable, his LDH has been increasing and 2 days ago on 06/09/2021 it was up to 1278, and CRP was 2.0, Procan SR level was negative at 0.07. In addition patient received a dose of IV Lasix yesterday, and he is in negative fluid balance at 2.5 L over the last 24 hours. No lower extremity edema was noted, he still has extensive coarse bibasilar crackles at bilateral bases. On 06/12/2021 2015 follow-up on medical surgical floor, he has been on BiPAP support at 12 and 6, and Fio2 of 100%, and Airvo 60 L and 90%, and patient has been frequently removing the BiPAP mask and taking off the Airvo and desaturating quite low to 60%. Becomes resistant with care, becomes mildly agitated. Afebrile, blood pressure is stable at 124/79. Lung sounds are positive for diffuse crackles. He is very hard of hearing, difficult to communicate with, he is currently sitting up in a recliner, does not appear to be fluid overloaded, he is continues on prophylactic dose Lovenox 40 mg daily, his lower extremity Dopplers only showed evidence of chronic DVT in the right lower extremity, no swelling in bilateral lower extremities. He continues on Baricitinib, on Decadron, multivitamins. Last chest x-ray from 06/02/2021 showed evidence of some mild heart failure. Today's labs have been reviewed, with some condoms 11.5, hemoglobin is 12.9, sodium is 140, potassium is 4.4, chloride is 96, CO2 32, BUN is 46, creatinine is 1.5 On 06/13/2021 patient seen in follow-up on medical surgical floor, he is currently resting comfortably in bed, he is on BiPAP with pressures of 12 and 6 and FiO2 of 100%, he is breathing fairly comfortably, he is very hard of hearing, he does have his hearing aids in however despite the hearing aids he still cannot hear. He Does not appear to be in any acute distress, he starting BiPAP support better on today's exam, he rapidly desaturates when the mask is removed, patient has been alternating between high flow per Airvo a 60 L and FiO2 of 85% at mealtimes, and goes back on BiPAP support after the meals, he remains in bed today, he has been afebrile, blood pressure has been stable. Today's chest x-ray shows worsening left lower lobe infiltrate, and a mild infiltrate at the right base related for atelectasis and possibility of pneu monia. Patient is positive for COVID 19, he currently remains on baricitinib, Decadron 6 mg daily, Lovenox 40 mg daily, and COVID 19 vitamins. His labs have been reviewed showing white blood cell count of 9.4, improved from yesterday, hemoglobin is 13.6, his d-dimer is 2.16, sodium is 134, potassium is 4.3, chloride is 95, CO2 34, B1 is 63 and creatinine is 1.5. LDH is improved and is down to 1098, CRP is 5.7, increased compared to last value, Procan SR level was negative at 0.07. Patient's primary care physician had a conversation with patient's family regarding patient's condition and likely poor prognosis, code status has been changed to DO NOT RESUSCITATE, patient wishes to continue with supportive treatment at this time. 06/14/2021, the patient is being seen for a follow-up. He is quite lethargic and sleeps most of the time. He seems to be essentially BiPAP dependent at this point and the BiPAP is currently at a pressure of 12/5 cm of water with an FiO2 of 100%. Degenerated tidal volume is around 400 and the respiratory rate is around 30 with a minute ventilation of around 12 L per minute. The current pulse ox is around 90%. Oral intake is minimal as the patient is strictly BiPAP dependent. He is quite debilitated and weak. His inflammatory markers were still elevated from yesterday. He is a DNR/DNI CODE STATUS. He is on a combination of Decadron 6 mg an Baricitinib per protocol and the patient is also on Lovenox 40 mg subcu for DVT prophylaxis. No other significant events overnight. He is difficult to communicate to the patient because of his inferior hearing.The blood work shows a white cell count of 13.7 with hemoglobin of 13.5, his d-dimer from yesterday was at 2.16, sodium is at 139 with a BUN of 61 and creatinine of 1.4 which is essentially stable compared to yesterday and there is no significant interval change on his lab values. 06/15/2021 the patient remains on a BiPAP and the patient is currently on pressures of 12/6 with an FiO2 100%. Doing well. Awake and alert. He feels well according to him and denies having any worsening shortness of breath. He seems to much more alert compared to yesterday. I saw him yesterday and was q uite lethargic and he was sleeping quite a bit. This morning, he opens up his eyes and he communicates fairly well without any major difficulties. His LDH level is down to 599, CRP level is down to 3.2, glucose of 181. The patient remains on a combination of Decadron 6 mg IV every 24 hours. The patient is also on Baricitinib per protocol. The patient is on Lovenox 40 mg subcu for DVT prophylaxis once a day. No chest pain. No angina. No palpitation. Is hard of hearing. He has a DNR/DNI CODE STATUS. Abdomen is improvement at least on clinical grounds compared to yesterday. Objective - Vital Signs Vital signs: Vital Signs Temp 97.8 F 06/15/21 09:10 Pulse 98 06/15/21 09:10 Resp 18 06/15/21 09:10 BP 109/60 06/15/21 09:10 Pulse Ox 90 L 06/15/21 09:10 Intake & Output 06/14/21 06/15/21 06/15/21 18:59 06:59 18:59 Intake Total 360 Balance 360 Intake: Oral 360 Other: Voiding Method Diaper External Catheter # Voids 1 2 - Exam GENERAL EXAM: Patient looks more awake on today's exam, resting in bed, currently on BiPAP support with pressures of 12 and 6 and FiO2 of 100% patient is a very difficult to communicate with related to the severe hearing deficit, even with hearing aids HEAD: Normocephalic/atraumatic. EYES: Normal reaction of pupils, equal size. Conjunctiva pink, sclera white. NOSE: Clear with pink turbinates. THROAT: No erythema or exudates. NECK: No masses, no JVD, no thyroid enlargement, no adenopathy. CHEST: No chest wall deformity. Symmetrical expansion. LUNGS: Equal air entry with basilar crackles CVS: Regular rate and rhythm, normal S1 and S2, no gallops, no murmurs, no rubs ABDOMEN: Soft, nontender. No hepatosplenomegaly, normal bowel sounds, no guarding or rigidity. EXTREMITIES: No clubbing, edema in the right lower extremity no cyanosis, 2+ pulses and upper and lower extremities. MUSCULOSKELETAL: Muscle strength and tone normal. SPINE: No scoliosis or deformity SKIN: No rashes CENTRAL NERVOUS SYSTEM: Alert and oriented -1. No focal deficits, tone is norm al in all 4 extremities. PSYCHIATRIC: Alert and oriented -1. Appropriate affect. Intact judgment and insight. - Labs CBC & Chem 7: 06/14/21 08:13 06/14/21 08:13 Labs: Abnormal Lab Results - Last 24 Hours (Table) 06/14/21 06/14/21 06/15/21 Range/Units 08:13 20:59 07:03 POC Glucose (mg/dL) 143 H 59 L (75-99) mg/dL Lactate Dehydrogenase 512 H (120-246) U/L C-Reactive Protein 3.20 H (0.00-0.80) mg/dL 06/15/21 06/15/21 06/15/21 Range/Units 07:19 07:35 08:03 POC Glucose (mg/dL) 67 L 117 H (75-99) mg/dL Lactate Dehydrogenase 599 H (120-246) U/L C-Reactive Protein 3.20 H (0.00-0.80) mg/dL 06/15/21 Range/Units 11:33 POC Glucose (mg/dL) 181 H (75-99) mg/dL Lactate Dehydrogenase (120-246) U/L C-Reactive Protein (0.00-0.80) mg/dL Assessment and Plan Plan: #1. Acute hypoxic respiratory failure, related to acute COVID-19 pneumonia, onset of symptoms was 2 weeks prior to presentation, patient is non-vaccinated against COVID 19, outside the window for Remdesivir, and will be treated supportively with a combination of anticoagulation, Decadron and multivitamins. His hypoxia has progressed, patient was started on Baricitinib on 06/10/2021. For now, the patient is on BiPAP at a pressure of 12/6 with an FiO2 100%. Repeat chest x-ray done today showed smaller lung volumes. Cardiomegaly. I nfiltration of the lung bases left greater than right, and the patient has multifocal lower lobe pulmonary opacities consistent with coronary related infection. #2. Elevated d-dimer, lower extremity Doppler showed a chronic DVT in the right lower extremity, therapeutic doses of Lovenox or cut back and patient is currently back on prophylactic Lovenox 40 #3. Increased LFTs, related to viral pneumonia #4. Hypertension #5. Hyperlipidemia #6. Obstructive sleep apnea #7. Diabetes mellitus type 2 #8. Obesity with obesity hypoventilation syndrome #9. Chronic kidney disease stage IIIB #10. History of right lower extremity DVT not on any chronic anticoagulation Plan: Continue BiPAP for respiratory support Consider trial of Airvo on this patient 60 L an FiO2 of 90% Continue combination of Decadron and Baricitinib Continue Lovenox 40 mg subcu for DVT prophylaxis I inflammatory markers abdomen essentially improving Clinically much more awake and alert compared to yesterday. We'll try high flow oxygen. We'll try to advance his diet. We will continue to follow. Treatment essentially supportive. DNR/DNI CODE STATUS.
--- NOTE | 2021-06-15 13:37 | P.PN ---
Subjective Progress Note Date: 06/15/21 This is an 86-year-old male patient of Dr. Larkin with past medical history of hypertension, hypertensive cardiovascular disease, hyperlipidemia, gastroesophageal reflux disease, diabetes mellitus type 2, obesity with obstructive sleep apnea and obesity hypoventilation syndrome, generalized osteo arthritis, chronic kidney disease stage IIIb, chronic DVT right lower extremity, patient had onset of symptoms 2 weeks ago with continued worsening of cough and shortness of breath. He has phlegm production. He has a little bit of chest pain. Patient complains of weakness and his had 3 falls at home. He presented to [facility] emergency center for evaluation found to be afebrile, heart rate 97, blood pressure 120/68, pulse ox 93%. EKG was a sinus rhythm with no acute ST changes. Chest x-ray was positive for Covid pneumonia. WBC 3.8, hemoglobin 12.4, platelet count 164. Sodium 133, BUN 21 creatinine 1.73. Blood sugar 237. ProBNP 981. Troponin 0.030. Lactic acid 1.0. Magnesium 1.5 and was replaced in the emergency center. Venous Doppler of the bilateral lower exam is negative for DVT. 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 Patient admitted to the [facility] floor, started on Lovenox, dexamethasone, vitamin supplements and consult with pulmonary medicine. patient examined bedside sitting comfortably in bed. Is currently saturating at 93% on room air otherwise vitals are stable afebrile pulse 67 respiratory 8. 19 blood pressure 116/66 magnesium has improved to 2.1 liver enzymes continues to remain elevated proBNP is normal. Patient has detailed workup of liver enzymes in the previous admission and was seen by Dr. Purcell. Fat ty hepatic infiltration was noted on hepatic ultrasound.. Continue patient on Decadron, Lovenox and supplementation. Venous Doppler suggestive of chronic DVT involving the right leg. Patient has no documentation of previous DVT and would benefit from Eliquis on discharge. will increase Lovenox to 100 subcu twice a day. His pro calcitonin was elevated he should patient on Rocephin and azithro mycin for possible overlying for bacterial infection Patient examined lying comfortably in bed. Patient endorses yellowish phlegm production and SOB, oxygen saturation mentained on 1 Litre. Continue decadon, vit supplement and lovenox with plan to initiate eliquis on discharge for chronic DVT. PT OT evaluation with possible transfer to [facility] as patient had 2 falls prior to admission . He has significant weakness from COVID Pneumonia and would benefot from rehab 06/08 patient examined lying comfortably in bed. He is coughing white phlegm associated with congestion denies any shortness of breath. Patient continues to remain on 2 L oxygen saturating 90-91% blood pressure 147/78, LDH 8:30 8B1.7 continues to improve. Blood sugar ranging from 109 to 325. Continue Decadron, vitamin supplements. Lovenox for this issue Eliquis for 1 month. patient is significantly weak and is unable to get a his activities at this point. PTOT has recommended subacute rehab. I feel patient would benefit for a few days and we have before he is discharged to his home setting. Patient will complete Augmentin twice a day for 7 days. Mucinex 1200 twice a day Tessalon Perles added at 100 mg 3 times. Patient's elected to send patient to rehab who would like to take patient home. PT OT has recommended subacute rehab due to increased weakness. Will arrange patient's oxygen with possible discharge to home with home physical therapy as per family request 06/09 patient is lying in bed appears tired and weak. Her earlier today and nurse called as patient's oxygen requirement increased from 1 L to 10 L. Patient denies any worsening shortness breath or cough or dizziness. Chest x-r ay was obtained as suggest bilateral radiculo nodular opacities suggestive of progression of Covid pneumonia. Patient is currently maintaining oxygenation 92% on 10 L of oxygen temp is 97.6 pulse 84 respiratory rate 17. Labs show worsening of information 3 markers suggesting increase of energy and she increase in CRP. No family updated on the prognosis. Await recommendation from pulmonary. Patient would benefit from Baricitinib infusion. Pulmonary recommendations awaiting 06/10 the patient examined bedside. He is currently frail looking short of breath at rest. Patient's afebrile pulse 73 that started radiating blood pressure 138/78 SIGNIFICANT 90% on 15 L high flow with nonrebreather at rest to 12,078, CRP increased to 2. Procalcitonin is normal. Patient is currently on supportive care. Discussion with pulmonary for possibility of baritinib patient has acutely decompensated. Patient's prognosis is poor 06/11: Patient remains in Covid isolation. He continues to have cough complains of chest discomfort with deep breathing. He has been on oxygen therapy with BiPAP 100% FiO2 with pulse ox of 89%. He's been afebrile, heart rate 90, respiratory rate 27, blood pressure 135/78. WBC 12.5, hemoglobin 13, platelet count 305. D-dimer 0.69. Blood sugars running between 145 and 341. AST 51, ALT 65. One dose of IV Lasix ordered. 06/12patient is seen today on the [facility] floor and continues to be in isolation. Patient is currently on BiPAP but not on airflow. Patient apparently is taking off his oxygen repeatedly. He is currently a full CODE STATUS. Dr. Larkin contacted the patient's and discussed current condition and poor prognosis and patient has been changed to no code and family may consider comfort care if he does not have improvement of his condition.patient is afebrile, heart rate 80, blood pressure 107/65, pulse ox 90%.repeat blood work reveals WBC 11.5, hemoglobin 12.9, platelet count 310. Creatinine 1.5. Blood sugars running between 120 and 190. AST 49, ALT 67, alkaline phosphatase 127. 06/13: Patient is seen today laying in bed, pulse ox 90% currently on BiPAP 06/18, FiO2 100%. He has been afebrile, heart rate 82, blood pressure 119/69. Repeat blood work reveals WBC 9.4. BUN 63 and creatinine 1.5. Blood sugars running between 83 and 242. Diverticular 2.16. LDH 1098, C-reactive protein 5.7. BUN 63 and creatinine 1.5. 06/14: Sugars are running between 52 and 91, Lantus decreased from 25 units to units twice day and NovoLog scheduled with meals will be discontinued. Patient is not able to eat due to desating on AirVo . He is taking Ensure supplement. Also ask is running 86-91% on 100% BiPAP. He has been afebrile, heart rate 70s and 80s, respiratory rate 26. WBC 13.7. BUN 61 creatinine 1.47. Repeat chest x-ray from yesterday revealed worsening left lower lobe infiltrate. Mild infiltrate at the right base. Correlate for atelectasis and pneumonia. 06/15: Patient remains on BiPAP with settings of 06/18 with FiO2 of 100%. His condition is essentially on changed from yesterday area patient continues to be somewhat lethargic and sleepy. Pulse ox is 97-90%. He's been afebrile, heart rate 98, blood pressure 109/60. C-reactive protein 3.2 and LDH 599. Blood sugars low this morning at 59 otherwise running up to 181. Levemir will be decreased to 10 mg twice daily. Wishes continued on Baricitinib, dexamethasone, Lovenox and vitamin supplements. REVIEW OF SYSTEMS Constitutional: No fever, no chills, no night sweats. No weight change. Reports weakness, Reports fatigue. EENT: No headache. No blurred vision or double vision, no loss of vision. Reports loss of Hearing. No nasal drainage or congestion. No epistaxis. No sore throat. Lungs: Reports worsening shortness of breath, reports cough, reports sputum production. No wheezing. Cardiovascular: No chest pain, no lower extremity edema. No palpitations. No paroxysmal nocturnal dyspnea. No orthopnea. No lightheadedness or dizziness. No syncopal episodes. Abdominal: Denies abdominal pain. No nausea, vomiting. No diarrhea. No constipation. No bloody or tarry stools. No loss of appetite. Genitourinary: No dysuria, increased frequency, urgency. No urinary retention. Musculoskeletal: No myalgias. Reports muscle weakness, Reports gait dysfunction, Reports falls. No back pain. No neck pain. Integumentary: No wounds, no lesions. No rash or pruritus. Neurologic: No aphasia. No facial droop. No change in mentation. No head injury. No headache. No paralysis. No paresthesia. Psychiatric: No depression. No anxiety. Endocrine: Noted abnormal blood sugars. PHYSICAL EXAMINATION Gen: This is an 86-year-old male. Patient is resting in bed. He is currently on oxygen therapy BiPAP and easily desaturate's. HEENT: Head is atraumatic, normocephalic. Pupils equal, round. Sclerae is anicteric. NECK: Supple. No JVD. No lymphadenopathy. No thyromegaly. LUNGS: Diminished with bilateral crackles. No intercostal retractions. HEART: Regular rate and rhythm. No murmur. ABDOMEN: Soft. Bowel sounds are present. No masses. No tenderness. Umbilical hernia EXTREMITIES: No pedal edema. No calf tenderness. Dorsalis pedis palpable bilaterally. NEUROLOGICAL: Patient is awake, alert and oriented x3. Cranial nerves 2 through 12 are grossly intact. ASSESSMENT AND PLAN 1. Acute hypoxic respiratory failure secondary to COVID-19 pneumonia. Continue on dexamethasone, Lovenox, vitamin supplements, consult with pulmonary medicine appreciated, oxygen therapy. Continue Mucinex 1200 mg twice daily. Tessalon Perles 100 mg 3 times daily, continue Baricitinib started on 06/10.. Continue oxygen therapy. 2. Acute kidney injury secondary to ATN on Chronic kidney disease stage IIIb. Patient is off IV fluids. 3. Acute on chronic Generalized weakness with multiple falls PT and OT consults added recommend [facility]. Patient is requesting discharging patient home. Discharge plan will be determined closer to date. 4. Chronic DVT of right leg. patient is on Lovenox 40 mg subcu daily. 5. Hypertension, hypertensive cardiovascular disease. Blood pressure is on the low side, continue lisinopril 2.5 mg daily with parameters, continue metoprolol 25 twice a day 6. Diabetes mellitus type 2 uncontrolled hyperglycemia and hypoglycemia. Continue NovoLog scale before meals and at bedtime, Levemir decreased to 20 mg twice daily, NovoLog scheduled discontinued. 7. Obesity with obstructive sleep apnea and obesity hypoventilation syndrome. 8. Gastroesophageal reflux disease and GI prophylaxis. Continue omeprazole or equivalent. 9. Benign prostatic hypertrophy. Continue Flomax 0.4 mg twice daily. 10. Hyperlipidemia. Continue atorvastatin 20 mg daily at bedtime 11. DVT prophylaxis. Lovenox. Impression and plan of care have been directed as dictated by the signing ph ysician. [place] nurse practitioner acting as scribe for signing physician. Objective - Vital Signs Vital signs: Vital Signs Temp 97.8 F 06/15/21 09:10 Pulse 98 06/15/21 09:10 Resp 18 06/15/21 09:10 BP 109/60 06/15/21 09:10 Pulse Ox 90 L 06/15/21 09:10 Intake & Output 06/14/21 06/15/21 06/15/21 18:59 06:59 18:59 Intake Total 360 Balance 360 Intake: Oral 360 Other: Voiding Method Diaper # Voids 1 2 - Labs CBC & Chem 7: 06/14/21 08:13 06/14/21 08:13 Labs: Abnormal Lab Results - Last 24 Hours (Table) 06/14/21 06/14/21 06/14/21 Range/Units 08:13 11:55 20:59 POC Glucose (mg/dL) 126 H 143 H (75-99) mg/dL Lactate Dehydrogenase 512 H (120-246) U/L C-Reactive Protein 3.20 H (0.00-0.80) mg/dL 06/15/21 06/15/21 06/15/21 Range/Units 07:03 07:19 07:35 POC Glucose (mg/dL) 59 L 67 L 117 H (75-99) mg/dL Lactate Dehydrogenase (120-246) U/L C-Reactive Protein (0.00-0.80) mg/dL
[2021-06-15] MEDS: BARICITINIB 2 MG TABLET PO SCH (15:49)
[2021-06-15 16:32] LABS: Glucose,Whole Blood 124 mg/dL (75-99)
[2021-06-15 20:11] LABS: Glucose,Whole Blood 140 mg/dL (75-99)
[2021-06-15] MEDS: ATORVASTATIN 20 MG TAB PO SCH (21:24)
[2021-06-16 06:55] LABS: Glucose,Whole Blood 86 mg/dL (75-99)
[2021-06-16] MEDS: INSULIN ASPART (NovoLOG) 100 UNIT/ML VIAL SQ SCH ×4 (07:49→21:16)
[2021-06-16] MEDS: DEXAMETHASONE SOD PHOSPHATE 10 MG/ML 1 ML VIAL IVP SCH (07:54)
[2021-06-16] MEDS: METOPROLOL TARTRATE 25 MG TAB PO SCH ×2 (07:54→20:05)
[2021-06-16] MEDS: ASCORBIC ACID 500 MG TAB PO SCH (07:54)
[2021-06-16] MEDS: guaiFENesin 600 MG TABLET.ER PO SCH ×2 (07:55→20:05)
[2021-06-16] MEDS: INSULIN DETEMIR (LEVEMIR) 100 UNIT/ML SYR SQ SCH ×2 (07:55→21:16)
[2021-06-16] MEDS: TAMSULOSIN 0.4 MG CAP.ER.24H PO SCH ×2 (07:55→17:49)
[2021-06-16] MEDS: ZINC SULFATE 220 MG CAP PO SCH (07:55)
[2021-06-16] MEDS: CHOLECALCIFEROL 25 MCG (1000 IU) TABLET PO SCH (07:55)
[2021-06-16] MEDS: PANTOPRAZOLE 40 MG TABLET PO SCH (07:55)
[2021-06-16] MEDS: ENOXAPARIN 40 MG/0.4 ML SYRINGE SQ SCH (07:55)
[2021-06-16 11:12] LABS: Glucose,Whole Blood 217 mg/dL (75-99)
--- NOTE | 2021-06-16 14:00 | P.PN ---
Subjective Progress Note Date: 06/16/21 This is an 86-year-old male patient of Dr. Larkin with past medical history of hypertension, hypertensive cardiovascular disease, hyperlipidemia, gastroesophageal reflux disease, diabetes mellitus type 2, obesity with obstructive sleep apnea and obesity hypoventilation syndrome, generalized osteo arthritis, chronic kidney disease stage IIIb, chronic DVT right lower extremity, patient had onset of symptoms 2 weeks ago with continued worsening of cough and shortness of breath. He has phlegm production. He has a little bit of chest pain. Patient complains of weakness and his had 3 falls at home. He presented to [facility] emergency center for evaluation found to be afebrile, heart rate 97, blood pressure 120/68, pulse ox 93%. EKG was a sinus rhythm with no acute ST changes. Chest x-ray was positive for Covid pneumonia. WBC 3.8, hemoglobin 12.4, platelet count 164. Sodium 133, BUN 21 creatinine 1.73. Blood sugar 237. ProBNP 981. Troponin 0.030. Lactic acid 1.0. Magnesium 1.5 and was replaced in the emergency center. Venous Doppler of the bilateral lower exam is negative for DVT. 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 Patient admitted to the [facility] floor, started on Lovenox, dexamethasone, vitamin supplements and consult with pulmonary medicine. patient examined bedside sitting comfortably in bed. Is currently saturating at 93% on room air otherwise vitals are stable afebrile pulse 67 respiratory 8. 19 blood pressure 116/66 magnesium has improved to 2.1 liver enzymes continues to remain elevated proBNP is normal. Patient has detailed workup of liver enzymes in the previous admission and was seen by Dr. Purcell. Fat ty hepatic infiltration was noted on hepatic ultrasound.. Continue patient on Decadron, Lovenox and supplementation. Venous Doppler suggestive of chronic DVT involving the right leg. Patient has no documentation of previous DVT and would benefit from Eliquis on discharge. will increase Lovenox to 100 subcu twice a day. His pro calcitonin was elevated he should patient on Rocephin and azithro mycin for possible overlying for bacterial infection Patient examined lying comfortably in bed. Patient endorses yellowish phlegm production and SOB, oxygen saturation mentained on 1 Litre. Continue decadon, vit supplement and lovenox with plan to initiate eliquis on discharge for chronic DVT. PT OT evaluation with possible transfer to [facility] as patient had 2 falls prior to admission . He has significant weakness from COVID Pneumonia and would benefot from rehab 06/08 patient examined lying comfortably in bed. He is coughing white phlegm associated with congestion denies any shortness of breath. Patient continues to remain on 2 L oxygen saturating 90-91% blood pressure 147/78, LDH 8:30 8B1.7 continues to improve. Blood sugar ranging from 109 to 325. Continue Decadron, vitamin supplements. Lovenox for this issue Eliquis for 1 month. patient is significantly weak and is unable to get a his activities at this point. PTOT has recommended subacute rehab. I feel patient would benefit for a few days and we have before he is discharged to his home setting. Patient will complete Augmentin twice a day for 7 days. Mucinex 1200 twice a day Tessalon Perles added at 100 mg 3 times. Patient's elected to send patient to rehab who would like to take patient home. PT OT has recommended subacute rehab due to increased weakness. Will arrange patient's oxygen with possible discharge to home with home physical therapy as per family request 06/09 patient is lying in bed appears tired and weak. Her earlier today and nurse called as patient's oxygen requirement increased from 1 L to 10 L. Patient denies any worsening shortness breath or cough or dizziness. Chest x-r ay was obtained as suggest bilateral radiculo nodular opacities suggestive of progression of Covid pneumonia. Patient is currently maintaining oxygenation 92% on 10 L of oxygen temp is 97.6 pulse 84 respiratory rate 17. Labs show worsening of information 3 markers suggesting increase of energy and she increase in CRP. No family updated on the prognosis. Await recommendation from pulmonary. Patient would benefit from Baricitinib infusion. Pulmonary recommendations awaiting 06/10 the patient examined bedside. He is currently frail looking short of breath at rest. Patient's afebrile pulse 73 that started radiating blood pressure 138/78 SIGNIFICANT 90% on 15 L high flow with nonrebreather at rest to 12,078, CRP increased to 2. Procalcitonin is normal. Patient is currently on supportive care. Discussion with pulmonary for possibility of baritinib patient has acutely decompensated. Patient's prognosis is poor 06/11: Patient remains in Covid isolation. He continues to have cough complains of chest discomfort with deep breathing. He has been on oxygen therapy with BiPAP 100% FiO2 with pulse ox of 89%. He's been afebrile, heart rate 90, respiratory rate 27, blood pressure 135/78. WBC 12.5, hemoglobin 13, platelet count 305. D-dimer 0.69. Blood sugars running between 145 and 341. AST 51, ALT 65. One dose of IV Lasix ordered. 06/12patient is seen today on the [facility] floor and continues to be in isolation. Patient is currently on BiPAP but not on airflow. Patient apparently is taking off his oxygen repeatedly. He is currently a full CODE STATUS. Dr. Larkin contacted the patient's and discussed current condition and poor prognosis and patient has been changed to no code and family may consider comfort care if he does not have improvement of his condition.patient is afebrile, heart rate 80, blood pressure 107/65, pulse ox 90%.repeat blood work reveals WBC 11.5, hemoglobin 12.9, platelet count 310. Creatinine 1.5. Blood sugars running between 120 and 190. AST 49, ALT 67, alkaline phosphatase 127. 06/13: Patient is seen today laying in bed, pulse ox 90% currently on BiPAP 06/18, FiO2 100%. He has been afebrile, heart rate 82, blood pressure 119/69. Repeat blood work reveals WBC 9.4. BUN 63 and creatinine 1.5. Blood sugars running between 83 and 242. Diverticular 2.16. LDH 1098, C-reactive protein 5.7. BUN 63 and creatinine 1.5. 06/14: Sugars are running between 52 and 91, Lantus decreased from 25 units to units twice day and NovoLog scheduled with meals will be discontinued. Patient is not able to eat due to desating on AirVo . He is taking Ensure supplement. Also ask is running 86-91% on 100% BiPAP. He has been afebrile, heart rate 70s and 80s, respiratory rate 26. WBC 13.7. BUN 61 creatinine 1.47. Repeat chest x-ray from yesterday revealed worsening left lower lobe infiltrate. Mild infiltrate at the right base. Correlate for atelectasis and pneumonia. 06/15: Patient remains on BiPAP with settings of 06/18 with FiO2 of 100%. His condition is essentially on changed from yesterday area patient continues to be somewhat lethargic and sleepy. Pulse ox is 97-90%. He's been afebrile, heart rate 98, blood pressure 109/60. C-reactive protein 3.2 and LDH 599. Blood sugars low this morning at 59 otherwise running up to 181. Levemir will be decreased to 10 mg twice daily. Patient continued on Baricitinib, d examethasone, Lovenox and vitamin supplements. 06/16: Patient remains on BiPAP with pulse ox 92%. He is unable to tolerate removal of the BiPAP. He's been afebrile, heart rate 74, blood pressure 111/64. Blood sugars are running between 86 and 217. Noted that nursing staff did not give patient his morning Levemir. Patient continues on Baricitinib, dexamethasone, Lovenox and vitamin supplements. IV fluids will be resumed due to basically nothing by mouth status. REVIEW OF SYSTEMS Constitutional: No fever, no chills, no night sweats. No weight change. Reports weakness, Reports fatigue. EENT: No headache. No blurred vision or double vision, no loss of vision. Reports loss of Hearing. No nasal drainage or congestion. No epistaxis. No sore throat. Lungs: Reports worsening shortness of breath, reports cough, reports sputum production. No wheezing. Reports dyspnea with minimal movement. Cardiovascular: No chest pain, no lower extremity edema. No palpitations. No paroxysmal nocturnal dyspnea. No orthopnea. No lightheadedness or dizziness. No syncopal episodes. Abdominal: Denies abdominal pain. No nausea, vomiting. No diarrhea. No constipation. No bloody or tarry stools. No loss of appetite. Genitourinary: No dysuria, increased frequency, urgency. No urinary retention. Musculoskeletal: No myalgias. Reports muscle weakness, Reports gait dysfunction, Reports falls. No back pain. No neck pain. Integumentary: No wounds, no lesions. No rash or pruritus. Neurologic: No aphasia. No facial droop. No change in mentation. No head injury. No headache. No paralysis. No paresthesia. Psychiatric: No depression. No anxiety. Endocrine: Noted abnormal blood sugars. PHYSICAL EXAMINATION Gen: This is an 86-year-old male. Patient is resting in bed. He is currently on oxygen therapy BiPAP and easily desaturate's. HEENT: Head is atraumatic, normocephalic. Pupils equal, round. Sclerae is anicteric. NECK: Supple. No JVD. No lymphadenopathy. No thyromegaly. LUNGS: Diminished with bilateral crackles. No intercostal retractions. HEART: Regular rate and rhythm. No murmur. ABDOMEN: Soft. Bowel sounds are present. No masses. No tenderness. Umbilical hernia EXTREMITIES: No pedal edema. No calf tenderness. Dorsalis pedis palpable bilaterally. NEUROLOGICAL: Patient is awake, alert and oriented x3. Cranial nerves 2 through 12 are grossly intact. ASSESSMENT AND PLAN 1. Acute hypoxic respiratory failure secondary to COVID-19 pneumonia. Continue on dexamethasone, Lovenox, vitamin supplements, consult with pulmonary medicine appreciated, oxygen therapy. Continue Mucinex 1200 mg twice daily. Tessalon Perles 100 mg 3 times daily, continue Baricitinib started on 06/10.. Continue oxygen therapy. 2. Acute kidney injury secondary to ATN on Chronic kidney disease stage IIIb. 0.9 normal saline at 75 mL per hour. 3. Acute on chronic Generalized weakness with multiple falls PT and OT consults added recommend CARLITO. Patient is requesting discharging patient home. Discharge plan will be determined closer to date. 4. Chronic DVT of right leg. patient is on Lovenox 40 mg subcu daily. 5. Hypertension, hypertensive cardiovascular disease. Blood pressure is on the low side, continue lisinopril 2.5 mg daily with parameters, continue metoprolol 25 twice a day 6. Diabetes mellitus type 2 uncontrolled hyperglycemia and hypoglycemia. Continue NovoLog scale before meals and at bedtime, Levemir decreased to 20 mg twice daily, NovoLog scheduled discontinued. 7. Obesity with obstructive sleep apnea and obesity hypoventilation syndrome. 8. Gastroesophageal reflux disease and GI prophylaxis. Continue omeprazole or equivalent. 9. Benign prostatic hypertrophy. Continue Flomax 0.4 mg twice daily. 10. Hyperlipidemia. Continue atorvastatin 20 mg daily at bedtime 11. DVT prophylaxis. Lovenox. Impression and plan of care have been directed as dictated by the signing physician. Augustina Washington nurse practitioner acting as scribe for signing physician. Objective - Vital Signs Vital signs: Vital Signs Temp 98.2 F 06/16/21 05:38 Pulse 74 06/16/21 05:38 Resp 27 H 06/16/21 05:38 BP 118/66 06/16/21 05:38 Pulse Ox 92 L 06/16/21 05:38 Intake & Output 06/15/21 06/16/21 06/16/21 18:59 06:59 18:59 Intake Total 360 Output Total 300 900 Balance -300 -900 360 Intake: Oral 360 Output: Urine 300 900 Other: Voiding Method External Catheter External Catheter - Labs CBC & Chem 7: 06/14/21 08:13 06/14/21 08:13 Labs: Abnormal Lab Results - Last 24 Hours (Table) 06/15/21 06/15/21 06/15/21 Range/Units 08:03 11:33 16:29 POC Glucose (mg/dL) 181 H 124 H (75-99) mg/dL Lactate Dehydrogenase 599 H (120-246) U/L C-Reactive Protein 3.20 H (0.00-0.80) mg/dL 06/15/21 Range/Units 20:01 POC Glucose (mg/dL) 140 H (75-99) mg/dL Lactate Dehydrogenase (120-246) U/L C-Reactive Protein (0.00-0.80) mg/dL
--- NOTE | 2021-06-16 15:11 | P.PN ---
Subjective Progress Note Date: 06/16/21 Principal diagnosis: COVID-19 pneumonia A 86-year-old white male patient with past medical history of hypertension, hyperlipidemia, diabetes mellitus type 2, obesity, obstructive sleep apnea, generalized osteoarthritis, chronic kidney disease stage IIIB, chronic DVT in the right lower extremity will present to the emergency department on 06/04/2021 for evaluation of worsening dyspnea. Patient complains of weakness and patient had 3 falls at home, he states his been sick for about 2 weeks, has been nauseous, vomiting, he has been freezing and then getting hot and sweating. His symptoms progressed to worsening dyspnea, cough. He is not vaccinated against COVID-19. Patient tested positive for COVID-19 on outpatient basis on 06/03/2021. The emergency department she was found to be hypoxic and satting 88% on room air. Chest x-ray showed cardiomegaly, retrocardiac infiltrate and some mild interstitial infiltrate at the right base. His labs show white blood cell count of 3.8, hemoglobin of 12.4, d-dimer today 0.9, sodium is 133, potassium is 3.8, CO2 is 24, BUN is 21, creatinine is 1.73, glucose is 237, lactic acid is 1.0, calcium is 8.2, magnesium is 1.5, AST 65, ALT is 55, alkaline phosphatase is 132, proBNP is 981, troponin was 0.031. Patient was started on Decadron, he is on Lovenox 100 mg daily, lower extremity Dopplers showed chronic DVT in the right lower extremity, negative DVT in the left lower extremity. EKgG shows normal sinus rhythm. Currently only on 1 L of oxygen his pulse ox is 95%. The patient is seen today 06/06/2021 in follow-up on the regular medical floor. He is currently resting comfortably in bed. Awake and alert in no acute distress. He is maintaining O2 saturations in the 90s and 2 L/m per nasal cannula. Dopplers of lower extremities revealed chronic DVT in the right leg. 0.9 normal saline at 20 ML's per hour. White count 3.8. Hemoglobin 12.8. Sodium 138. Potassium 5.2. Creatinine 1.26. AST 74. ALT 55. He is continued on Decadron, Lovenox, vitamin supplements. Antibiotics in the form of ceftriaxone and azithromycin. The patient is seen today 06/07/2021 in follow-up on the regular medical floor. He is currently resting comfortably in bed. Awake and alert in no acute distress. Feeling about the same today as compared to yesterday. He continues to maintain O2 saturations in the 90s on 2 L/m per nasal cannula. She's been afebrile. Hemodynamically stable. D-dimer 0.82. LDH 838. C-reactive protein 1.7. Glucose 195. He remains on antibiotics in the form of ceftriaxone and azithromycin. Continued on Lovenox, Decadron, vitamin supplements. The patient is seen today 06/08/2021 in follow-up on the regular medical floor. He is currently sitting up in bed. Awake and alert in no acute distress. Maintaining O2 saturations in the 90s on 2 L/m per nasal cannula. Home oxygen has been arranged for him. He is continued on Decadron, Lovenox, vitamin supplements. Antibiotics in the form of azithromycin. Still positive coronavirus by PCR. Blood glucose 153. Plan is for discharge to [facility] once a bed is available The patient is seen today 06/10/2021 in follow-up on the regular medical floor. He is currently resting in bed. His oxygen requirements have gone up and he is now on 15 L high flow plus a nonrebreather mask. Xx-ray reveals mild pulmonary vascular congestion. pro calcitonin 0.07. D-dimer 0.60. Blood glucose 224. He is continued on Decadron, Lovenox, vitamin supplements. The patient is seen today 06/16/2021 in follow-up on the regular medical floor. He is currently resting in bed. Bit more awake and alert. He is eating with assistance. He is currently on BiPAP with 100% FiO2. He is afebrile. Hemodynamically stable. The glucose 217. He is being followed by nursing staff. Appetite fair. He is continued on Decadron, Lovenox, vitamin supp lements. He is still on Baricitinib. Objective - Vital Signs Vital signs: Vital Signs Temp 97.9 F 06/16/21 14:20 Pulse 86 06/16/21 14:20 Resp 19 06/16/21 14:20 BP 102/63 06/16/21 14:20 Pulse Ox 93 L 06/16/21 14:20 Intake & Output 06/15/21 06/16/21 06/16/21 18:59 06:59 18:59 Intake Total 540 Output Total 300 900 Balance -300 -900 540 Intake: Oral 540 Output: Urine 300 900 Other: Voiding Method External Catheter External Catheter Diaper - Exam GENERAL EXAM: Alert, 86-year-old male patient, resting comfortably in bed, currently on BiPAP with 100% FiO2. HEAD: Normocephalic/atraumatic. EYES: Normal reaction of pupils, equal size. Conjunctiva pink, sclera white. NOSE: Clear with pink turbinates. THROAT: No erythema or exudates. NECK: No masses, no JVD, no thyroid enlargement, no adenopathy. CHEST: No chest wall deformity. Symmetrical expansion. LUNGS: Equal air entry with bibasilar crackles CVS: Regular rate and rhythm, normal S1 and S2, no gallops, no murmurs, no rubs ABDOMEN: Soft, nontender. No hepatosplenomegaly, normal bowel sounds, no guarding or rigidity. EXTREMITIES: No clubbing, no edema, no cyanosis, 2+ pulses and upper and lower extremities. MUSCULOSKELETAL: Muscle strength and tone normal. SPINE: No scoliosis or deformity SKIN: No rashes CENTRAL NERVOUS SYSTEM: No focal deficits, tone is normal in all 4 extremities. PSYCHIATRIC: Alert and oriented -3. Appropriate affect. Intact judgment and insight. - Labs CBC & Chem 7: 06/14/21 08:13 06/14/21 08:13 Labs: Abnormal Lab Results - Last 24 Hours (Table) 06/15/21 06/15/21 06/16/21 Range/Units 16:29 20:01 11:11 POC Glucose (mg/dL) 124 H 140 H 217 H (75-99) mg/dL Assessment and Plan Assessment: 1 Acute hypoxic respiratory failure, related to acute COVID-19 pneumonia, onset of symptoms was 2 weeks prior to presentation, patient is non-vaccinated against COVID 19, outside the window for Remdesivir, and will be treated supportively with a combination of anticoagulation, Decadron and multivitamins. His oxygen requirements have increased significantly. Currently on BiPAP 16/6 and 100% FiO2. Remains on Baricitinib. 2 Elevated d-dimer, lower extremity Doppler showed a chronic DVT in the right lower extremity, she can continue on prophylactic Lovenox 3 Increased LFTs, related to viral pneumonia 4 Hypertension 5 Hyperlipidemia 6 Obstructive sleep apnea 7 Diabetes mellitus type 2 8 Obesity with obesity hypoventilation syndrome 9 Chronic kidney disease stage IIIB 10 History of right lower extremity DVT not on any chronic anticoagulation Plan: The patient was seen and evaluated Continued on BiPAP 16/600% FiO2 Titrate the FiO2 as tolerated Continue Baricitinib, Decadron, Lovenox, vitamin supplements We will continue to follow
[2021-06-16 16:59] LABS: Glucose,Whole Blood 290 mg/dL (75-99)
[2021-06-16] MEDS: BARICITINIB 2 MG TABLET PO SCH (17:38)
[2021-06-16] MEDS: SODIUM CHLORIDE 0.9% 1,000 ML IV SCH (17:40)
[2021-06-16] MEDS: ATORVASTATIN 20 MG TAB PO SCH (20:05)
[2021-06-16] MEDS: DOCUSATE 100 MG CAP PO SCH (20:05)
[2021-06-16 20:19] LABS: Glucose,Whole Blood 304 mg/dL (75-99)
[2021-06-17] MEDS: SODIUM CHLORIDE 0.9% 1,000 ML IV SCH ×2 (05:04→17:08)
[2021-06-17 07:27] LABS: Glucose,Whole Blood 136 mg/dL (75-99)
[2021-06-17] MEDS: ZINC SULFATE 220 MG CAP PO SCH (08:47)
[2021-06-17] MEDS: DOCUSATE 100 MG CAP PO SCH (08:47)
[2021-06-17] MEDS: TAMSULOSIN 0.4 MG CAP.ER.24H PO SCH ×2 (08:47→17:07)
[2021-06-17] MEDS: guaiFENesin 600 MG TABLET.ER PO SCH ×2 (08:48→21:24)
[2021-06-17] MEDS: PANTOPRAZOLE 40 MG TABLET PO SCH (08:48)
[2021-06-17] MEDS: CHOLECALCIFEROL 25 MCG (1000 IU) TABLET PO SCH (08:48)
[2021-06-17] MEDS: ASCORBIC ACID 500 MG TAB PO SCH (08:49)
[2021-06-17] MEDS: METOPROLOL TARTRATE 25 MG TAB PO SCH ×2 (08:49→21:23)
[2021-06-17] MEDS: INSULIN ASPART (NovoLOG) 100 UNIT/ML VIAL SQ SCH ×4 (08:49→21:23)
[2021-06-17] MEDS: DEXAMETHASONE SOD PHOSPHATE 10 MG/ML 1 ML VIAL IVP SCH (08:49)
[2021-06-17] MEDS: ENOXAPARIN 40 MG/0.4 ML SYRINGE SQ SCH (08:50)
[2021-06-17] MEDS: INSULIN DETEMIR (LEVEMIR) 100 UNIT/ML SYR SQ SCH (08:50)
[2021-06-17 09:29] LABS: HCT 41.4 % (39.6-50.0); MCH 30.7 pg (27.0-32.0); MCHC 31.4 g/dL (32.0-37.0); MCV 97.9 fL (80.0-97.0); Mean Platelet Volume 10.6 fL (9.5-12.2); Platelet Count 296 X 10*3/uL (140-440); RBC 4.23 X 10*6/uL (4.40-5.60); RDW 12.8 % (11.5-14.5)
[2021-06-17 11:49] LABS: Glucose,Whole Blood 227 mg/dL (75-99)
[2021-06-17 12:43] LABS: African American GFR (CKD) 51.5 (60.0-200.0); Albumin 3.2 g/dL (3.8-4.9); Albumin/Globulin Ratio 1.06 (1.60-3.17); Anion Gap 16.1 mmol/L (10.00-18.00); BUN/Creat Ratio 29.36 Ratio (12.00-20.00); Blood Urea Nitrogen 41.4 mg/dL (9.0-27.0); C Reactive Protein 5.4 mg/dL (0.00-0.80); Globulin 3.1 g/dL (1.6-3.3); Non-African American GFR(CKD) 44.5 (60.0-200.0); Total Bilirubin 0.7 mg/dL (0.30-1.20); Total Protein 6.3 g/dL (6.2-8.2)
--- NOTE | 2021-06-17 14:16 | P.PN ---
Subjective Progress Note Date: 06/17/21 This is an 86-year-old male patient of Dr. Larkin with past medical history of hypertension, hypertensive cardiovascular disease, hyperlipidemia, gastroesophageal reflux disease, diabetes mellitus type 2, obesity with obstructive sleep apnea and obesity hypoventilation syndrome, generalized osteo arthritis, chronic kidney disease stage IIIb, chronic DVT right lower extremity, patient had onset of symptoms 2 weeks ago with continued worsening of cough and shortness of breath. He has phlegm production. He has a little bit of chest pain. Patient complains of weakness and his had 3 falls at home. He presented to [facility] emergency center for evaluation found to be afebrile, heart rate 97, blood pressure 120/68, pulse ox 93%. EKG was a sinus rhythm with no acute ST changes. Chest x-ray was positive for Covid pneumonia. WBC 3.8, hemoglobin 12.4, platelet count 164. Sodium 133, BUN 21 creatinine 1.73. Blood sugar 237. ProBNP 981. Troponin 0.030. Lactic acid 1.0. Magnesium 1.5 and was replaced in the emergency center. Venous Doppler of the bilateral lower exam is negative for DVT. 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 Patient admitted to the [facility] floor, started on Lovenox, dexamethasone, vitamin supplements and consult with pulmonary medicine. patient examined bedside sitting comfortably in bed. Is currently saturating at 93% on room air otherwise vitals are stable afebrile pulse 67 respiratory 8. 19 blood pressure 116/66 magnesium has improved to 2.1 liver enzymes continues to remain elevated proBNP is normal. Patient has detailed workup of liver enzymes in the previous admission and was seen by Dr. Purcell. Fat ty hepatic infiltration was noted on hepatic ultrasound.. Continue patient on Decadron, Lovenox and supplementation. Venous Doppler suggestive of chronic DVT involving the right leg. Patient has no documentation of previous DVT and would benefit from Eliquis on discharge. will increase Lovenox to 100 subcu twice a day. His pro calcitonin was elevated he should patient on Rocephin and azithro mycin for possible overlying for bacterial infection Patient examined lying comfortably in bed. Patient endorses yellowish phlegm production and SOB, oxygen saturation mentained on 1 Litre. Continue decadon, vit supplement and lovenox with plan to initiate eliquis on discharge for chronic DVT. PT OT evaluation with possible transfer to [facility] as patient had 2 falls prior to admission . He has significant weakness from COVID Pneumonia and would benefot from rehab 06/08 patient examined lying comfortably in bed. He is coughing white phlegm associated with congestion denies any shortness of breath. Patient continues to remain on 2 L oxygen saturating 90-91% blood pressure 147/78, LDH 8:30 8B1.7 continues to improve. Blood sugar ranging from 109 to 325. Continue Decadron, vitamin supplements. Lovenox for this issue Eliquis for 1 month. patient is significantly weak and is unable to get a his activities at this point. PTOT has recommended subacute rehab. I feel patient would benefit for a few days and we have before he is discharged to his home setting. Patient will complete Augmentin twice a day for 7 days. Mucinex 1200 twice a day Tessalon Perles added at 100 mg 3 times. Patient's elected to send patient to rehab who would like to take patient home. PT OT has recommended subacute rehab due to increased weakness. Will arrange patient's oxygen with possible discharge to home with home physical therapy as per family request 06/09 patient is lying in bed appears tired and weak. Her earlier today and nurse called as patient's oxygen requirement increased from 1 L to 10 L. Patient denies any worsening shortness breath or cough or dizziness. Chest x-r ay was obtained as suggest bilateral radiculo nodular opacities suggestive of progression of Covid pneumonia. Patient is currently maintaining oxygenation 92% on 10 L of oxygen temp is 97.6 pulse 84 respiratory rate 17. Labs show worsening of information 3 markers suggesting increase of energy and she increase in CRP. No family updated on the prognosis. Await recommendation from pulmonary. Patient would benefit from Baricitinib infusion. Pulmonary recommendations awaiting 06/10 the patient examined bedside. He is currently frail looking short of breath at rest. Patient's afebrile pulse 73 that started radiating blood pressure 138/78 SIGNIFICANT 90% on 15 L high flow with nonrebreather at rest to 12,078, CRP increased to 2. Procalcitonin is normal. Patient is currently on supportive care. Discussion with pulmonary for possibility of baritinib patient has acutely decompensated. Patient's prognosis is poor 06/11: Patient remains in Covid isolation. He continues to have cough complains of chest discomfort with deep breathing. He has been on oxygen therapy with BiPAP 100% FiO2 with pulse ox of 89%. He's been afebrile, heart rate 90, respiratory rate 27, blood pressure 135/78. WBC 12.5, hemoglobin 13, platelet count 305. D-dimer 0.69. Blood sugars running between 145 and 341. AST 51, ALT 65. One dose of IV Lasix ordered. 06/12patient is seen today on the [facility] floor and continues to be in isolation. Patient is currently on BiPAP but not on airflow. Patient apparently is taking off his oxygen repeatedly. He is currently a full CODE STATUS. Dr. Larkin contacted the patient's and discussed current condition and poor prognosis and patient has been changed to no code and family may consider comfort care if he does not have improvement of his condition.patient is afebrile, heart rate 80, blood pressure 107/65, pulse ox 90%.repeat blood work reveals WBC 11.5, hemoglobin 12.9, platelet count 310. Creatinine 1.5. Blood sugars running between 120 and 190. AST 49, ALT 67, alkaline phosphatase 127. 06/13: Patient is seen today laying in bed, pulse ox 90% currently on BiPAP 06/18, FiO2 100%. He has been afebrile, heart rate 82, blood pressure 119/69. Repeat blood work reveals WBC 9.4. BUN 63 and creatinine 1.5. Blood sugars running between 83 and 242. Diverticular 2.16. LDH 1098, C-reactive protein 5.7. BUN 63 and creatinine 1.5. 06/14: Sugars are running between 52 and 91, Lantus decreased from 25 units to units twice day and NovoLog scheduled with meals will be discontinued. Patient is not able to eat due to desating on AirVo . He is taking Ensure supplement. Also ask is running 86-91% on 100% BiPAP. He has been afebrile, heart rate 70s and 80s, respiratory rate 26. WBC 13.7. BUN 61 creatinine 1.47. Repeat chest x-ray from yesterday revealed worsening left lower lobe infiltrate. Mild infiltrate at the right base. Correlate for atelectasis and pneumonia. 06/15: Patient remains on BiPAP with settings of 06/18 with FiO2 of 100%. His condition is essentially on changed from yesterday area patient continues to be somewhat lethargic and sleepy. Pulse ox is 97-90%. He's been afebrile, heart rate 98, blood pressure 109/60. C-reactive protein 3.2 and LDH 599. Blood sugars low this morning at 59 otherwise running up to 181. Levemir will be decreased to 10 mg twice daily. Patient continued on Baricitinib, d examethasone, Lovenox and vitamin supplements. 06/16: Patient remains on BiPAP with pulse ox 92%. He is unable to tolerate removal of the BiPAP. He's been afebrile, heart rate 74, blood pressure 111/64. Blood sugars are running between 86 and 217. Noted that nursing staff did not give patient his morning Levemir. Patient continues on Baricitinib, dexamethasone, Lovenox and vitamin supplements. IV fluids will be resumed due to basically nothing by mouth status. 06/17: He should continues on BiPAP at 100% and pulse ox 93%. If removed, patient falls down to the 70 percentile. He is taking Glucerna but not much for any other food intake. Patient is afebrile, heart rate 86, blood pressure 103/64. Repeat blood work reveals WBC 18, hemoglobin 13, platelet count 296. D-dimer 9.71. Sodium 132. BUN 41 creatinine 1.4. Blood sugars have been elevated anywhere from 136-304. LDH 519. C-reactive protein 5.4. Levemir increased to 50 mg twice daily. REVIEW OF SYSTEMS Constitutional: No fever, no chills, no night sweats. No weight change. Reports weakness, Reports fatigue. EENT: No headache. No blurred vision or double vision, no loss of vision. Repo rts loss of Hearing. No nasal drainage or congestion. No epistaxis. No sore throat. Lungs: Reports worsening shortness of breath, reports cough, reports sputum production. No wheezing. Reports dyspnea with minimal movement. Cardiovascular: No chest pain, no lower extremity edema. No palpitations. No paroxysmal nocturnal dyspnea. No orthopnea. No lightheadedness or dizziness. No syncopal episodes. Abdominal: Denies abdominal pain. No nausea, vomiting. No diarrhea. No constipation. No bloody or tarry stools. No loss of appetite. Genitourinary: No dysuria, increased frequency, urgency. No urinary retention. Musculoskeletal: No myalgias. Reports muscle weakness, Reports gait dys function, Reports falls. No back pain. No neck pain. Integumentary: No wounds, no lesions. No rash or pruritus. Neurologic: No aphasia. No facial droop. No change in mentation. No head injury. No headache. No paralysis. No paresthesia. Psychiatric: No depression. No anxiety. Endocrine: Noted hyperglycemia. PHYSICAL EXAMINATION Gen: This is an 86-year-old male. Patient is resting in bed. He is currently on oxygen therapy BiPAP and easily desaturate's. HEENT: Head is atraumatic, normocephalic. Pupils equal, round. Sclerae is anicteric. NECK: Supple. No JVD. No lymphadenopathy. No thyromegaly. LUNGS: Diminished with bilateral crackles. No intercostal retractions. HEART: Regular rate and rhythm. No murmur. ABDOMEN: Soft. Bowel sounds are present. No masses. No tenderness. Umbilical hernia EXTREMITIES: No pedal edema. No calf tenderness. Dorsalis pedis palpable bilaterally. NEUROLOGICAL: Patient is awake, alert and oriented x3. Cranial nerves 2 through 12 are grossly intact. ASSESSMENT AND PLAN 1. Acute hypoxic respiratory failure secondary to COVID-19 pneumonia. Continue on dexamethasone, Lovenox, vitamin supplements, consult with pulmonary medicine appreciated, oxygen therapy. Continue Mucinex 1200 mg twice daily. Tessalon Perles 100 mg 3 times daily, continue Baricitinib started on 06/10.. Continue oxygen therapy on BiPAP. 2. Acute kidney injury secondary to ATN on Chronic kidney disease stage IIIb. 0.9 normal saline at 75 mL per hour. 3. Acute on chronic Generalized weakness with multiple falls PT and OT consults added recommend CARLITO. Patient is requesting discharging patient home. Discharge plan will be determined closer to date. 4. Chronic DVT of right leg. patient is on Lovenox 40 mg subcu daily. 5. Hypertension, hypertensive cardiovascular disease. Blood pressure is on the low side, continue lisinopril 2.5 mg daily with parameters, continue metoprolol 25 twice a day 6. Diabetes mellitus type 2 uncontrolled hyperglycemia and hypoglycemia. Continue NovoLog scale before meals and at bedtime, Levemir increased to 15 mg twice daily, NovoLog scheduled discontinued. 7. Obesity with obstructive sleep apnea and obesity hypoventilation syndrome. 8. Gastroesophageal reflux disease and GI prophylaxis. Continue omeprazole or equivalent. 9. Benign prostatic hypertrophy. Continue Flomax 0.4 mg twice daily. 10. Hyperlipidemia. Continue atorvastatin 20 mg daily at bedtime 11. DVT prophylaxis. Lovenox. Impression and plan of care have been directed as dictated by the signing physician. Augustina Washington nurse practitioner acting as scribe for signing physician. Objective - Vital Signs Vital signs: Vital Signs Temp 97.5 F L 06/17/21 05:18 Pulse 93 06/17/21 05:18 Resp 34 H 06/17/21 05:18 BP 105/56 06/17/21 05:18 Pulse Ox 87 L 06/17/21 05:18 Intake & Output 06/16/21 06/17/21 06/17/21 18:59 06:59 18:59 Intake Total 540 Output Total 400 Balance 540 -400 Intake: Oral 540 Output: Urine 400 Other: Voiding Method Diaper External Catheter External Catheter # Voids 2 # Bowel Movements 1 1 - Labs CBC & Chem 7: 06/17/21 06:28 06/17/21 06:28 Labs: Abnormal Lab Results - Last 24 Hours (Table) 06/16/21 06/16/21 06/16/21 Range/Units 11:11 16:55 20:16 WBC (4.50-10.00) X 10*3/uL RBC (4.40-5.60) X 10*6/uL MCV (80.0-97.0) fL MCHC (32.0-37.0) g/dL D-Dimer (<0.60) mg/L FEU POC Glucose (mg/dL) 217 H 290 H 304 H (75-99) mg/dL 06/17/21 06/17/21 06/17/21 Range/Units 06:28 06:28 07:25 WBC 18.10 H (4.50-10.00) X 10*3/uL RBC 4.23 L (4.40-5.60) X 10*6/uL MCV 97.9 H (80.0-97.0) fL MCHC 31.4 L (32.0-37.0) g/dL D-Dimer 9.71 H (<0.60) mg/L FEU POC Glucose (mg/dL) 136 H (75-99) mg/dL
--- NOTE | 2021-06-17 16:04 | P.PN ---
Subjective Progress Note Date: 06/17/21 Principal diagnosis: COVID-19 pneumonia A 86-year-old white male patient with past medical history of hypertension, hyperlipidemia, diabetes mellitus type 2, obesity, obstructive sleep apnea, generalized osteoarthritis, chronic kidney disease stage IIIB, chronic DVT in the right lower extremity will present to the emergency department on 06/04/2021 for evaluation of worsening dyspnea. Patient complains of weakness and patient had 3 falls at home, he states his been sick for about 2 weeks, has been nauseous, vomiting, he has been freezing and then getting hot and sweating. His symptoms progressed to worsening dyspnea, cough. He is not vaccinated against COVID-19. Patient tested positive for COVID-19 on outpatient basis on 06/03/2021. The emergency department she was found to be hypoxic and satting 88% on room air. Chest x-ray showed cardiomegaly, retrocardiac infiltrate and some mild interstitial infiltrate at the right base. His labs show white blood cell count of 3.8, hemoglobin of 12.4, d-dimer today 0.9, sodium is 133, potassium is 3.8, CO2 is 24, BUN is 21, creatinine is 1.73, glucose is 237, lactic acid is 1.0, calcium is 8.2, magnesium is 1.5, AST 65, ALT is 55, alkaline phosphatase is 132, proBNP is 981, troponin was 0.031. Patient was started on Decadron, he is on Lovenox 100 mg daily, lower extremity Dopplers showed chronic DVT in the right lower extremity, negative DVT in the left lower extremity. EKgG shows normal sinus rhythm. Currently only on 1 L of oxygen his pulse ox is 95%. The patient is seen today 06/06/2021 in follow-up on the regular medical floor. He is currently resting comfortably in bed. Awake and alert in no acute distress. He is maintaining O2 saturations in the 90s and 2 L/m per nasal cannula. Dopplers of lower extremities revealed chronic DVT in the right leg. 0.9 normal saline at 20 ML's per hour. White count 3.8. Hemoglobin 12.8. Sodium 138. Potassium 5.2. Creatinine 1.26. AST 74. ALT 55. He is continued on Decadron, Lovenox, vitamin supplements. Antibiotics in the form of ceftriaxone and azithromycin. The patient is seen today 06/07/2021 in follow-up on the regular medical floor. He is currently resting comfortably in bed. Awake and alert in no acute distress. Feeling about the same today as compared to yesterday. He continues to maintain O2 saturations in the 90s on 2 L/m per nasal cannula. She's been afebrile. Hemodynamically stable. D-dimer 0.82. LDH 838. C-reactive protein 1.7. Glucose 195. He remains on antibiotics in the form of ceftriaxone and azithromycin. Continued on Lovenox, Decadron, vitamin supplements. The patient is seen today 06/08/2021 in follow-up on the regular medical floor. He is currently sitting up in bed. Awake and alert in no acute distress. Maintaining O2 saturations in the 90s on 2 L/m per nasal cannula. Home oxygen has been arranged for him. He is continued on Decadron, Lovenox, vitamin supplements. Antibiotics in the form of azithromycin. Still positive coronavirus by PCR. Blood glucose 153. Plan is for discharge to [facility] once a bed is available The patient is seen today 06/10/2021 in follow-up on the regular medical floor. He is currently resting in bed. His oxygen requirements have gone up and he is now on 15 L high flow plus a nonrebreather mask. Xx-ray reveals mild pulmonary vascular congestion. pro calcitonin 0.07. D-dimer 0.60. Blood glucose 224. He is continued on Decadron, Lovenox, vitamin supplements. The patient is seen today 06/16/2021 in follow-up on the regular medical floor. He is currently resting in bed. Bit more awake and alert. He is eating with assistance. He is currently on BiPAP with 100% FiO2. He is afebrile. Hemodynamically stable. The glucose 217. He is being followed by nursing staff. Appetite fair. He is continued on Decadron, Lovenox, vitamin supp lements. He is still on Baricitinib. The patient is seen today 06/17/2021 in follow-up on the regular medical floor. He remains on BiPAP / and 100% FiO2. He has not been off the BiPAP today and has not taken any nourishment. He is awake. He is alert. White count 18.1. Hemoglobin 13.0. D-dimer 9.71. Sodium 132. Potassium 5.0. Creatinine 1.4. Glucose 140. LDH 519. C-reactive protein 5.4. He is continued on Decadron, Lovenox, Baricitinib and vitamin supplements. Objective - Vital Signs Vital signs: Vital Signs Temp 96.7 F L 06/17/21 14:00 Pulse 78 06/17/21 14:00 Resp 22 06/17/21 14:00 BP 113/61 06/17/21 14:00 Pulse Ox 86 L 06/17/21 14:00 Intake & Output 06/16/21 06/17/21 06/17/21 18:59 06:59 18:59 Intake Total 540 Output Total 400 Balance 540 -400 Intake: Oral 540 Output: Urine 400 Other: Voiding Method Diaper External Catheter External Catheter # Voids 2 # Bowel Movements 1 1 - Exam GENERAL EXAM: Alert, 86-year-old male patient, resting fairly comfortably in bed, currently on BiPAP 06/18 with 100% FiO2. HEAD: Normocephalic/atraumatic. EYES: Normal reaction of pupils, equal size. Conjunctiva pink, sclera white. NOSE: Clear with pink turbinates. THROAT: No erythema or exudates. NECK: No masses, no JVD, no thyroid enlargement, no adenopathy. CHEST: No chest wall deformity. Symmetrical expansion. LUNGS: Equal air entry with bibasilar crackles CVS: Regular rate and rhythm, normal S1 and S2, no gallops, no murmurs, no rubs ABDOMEN: Soft, nontender. No hepatosplenomegaly, normal bowel sounds, no guarding or rigidity. EXTREMITIES: No clubbing, no edema, no cyanosis, 2+ pulses and upper and lower extremities. MUSCULOSKELETAL: Muscle strength and tone normal. SPINE: No scoliosis or deformity SKIN: No rashes CENTRAL NERVOUS SYSTEM: No focal deficits, tone is normal in all 4 extremities. PSYCHIATRIC: Alert and oriented -3. Appropriate affect. Intact judgment and insight. - Labs CBC & Chem 7: 06/17/21 06:28 06/17/21 06:28 Labs: Abnormal Lab Results - Last 24 Hours (Table) 06/16/21 06/16/21 06/17/21 Range/Units 16:55 20:16 06:28 WBC 18.10 H (4.50-10.00) X 10*3/uL RBC 4.23 L (4.40-5.60) X 10*6/uL MCV 97.9 H (80.0-97.0) fL MCHC 31.4 L (32.0-37.0) g/dL D-Dimer (<0.60) mg/L FEU Sodium (135-145) mmol/L Chloride (96-109) mmol/L BUN (9.0-27.0) mg/dL Est GFR (CKD-EPI)AfAm (60.0-200.0) Est GFR (CKD-EPI)NonAf (60.0-200.0) BUN/Creatinine Ratio (12.00-20.00) Ratio Glucose (70-110) mg/dL POC Glucose (mg/dL) 290 H 304 H (75-99) mg/dL Lactate Dehydrogenase (120-246) U/L C-Reactive Protein (0.00-0.80) mg/dL Albumin (3.8-4.9) g/dL Albumin/Globulin Ratio (1.60-3.17) g/dL 06/17/21 06/17/21 06/17/21 Range/Units 06:28 06:28 07:25 WBC (4.50-10.00) X 10*3/uL RBC (4.40-5.60) X 10*6/uL MCV (80.0-97.0) fL MCHC (32.0-37.0) g/dL D-Dimer 9.71 H (<0.60) mg/L FEU Sodium 132 L (135-145) mmol/L Chloride 94 L (96-109) mmol/L BUN 41.4 H (9.0-27.0) mg/dL Est GFR (CKD-EPI)AfAm 51.5 L (60.0-200.0) Est GFR (CKD-EPI)NonAf 44.5 L (60.0-200.0) BUN/Creatinine Ratio 29.36 H (12.00-20.00) Ratio Glucose 140 H (70-110) mg/dL POC Glucose (mg/dL) 136 H (75-99) mg/dL Lactate Dehydrogenase 519 H (120-246) U/L C-Reactive Protein 5.40 H (0.00-0.80) mg/dL Albumin 3.2 L (3.8-4.9) g/dL Albumin/Globulin Ratio 1.06 L (1.60-3.17) g/dL 06/17/21 Range/Units 11:47 WBC (4.50-10.00) X 10*3/uL RBC (4.40-5.60) X 10*6/uL MCV (80.0-97.0) fL MCHC (32.0-37.0) g/dL D-Dimer (<0.60) mg/L FEU Sodium (135-145) mmol/L Chloride (96-109) mmol/L BUN (9.0-27.0) mg/dL Est GFR (CKD-EPI)AfAm (60.0-200.0) Est GFR (CKD-EPI)NonAf (60.0-200.0) BUN/Creatinine Ratio (12.00-20.00) Ratio Glucose (70-110) mg/dL POC Glucose (mg/dL) 227 H (75-99) mg/dL Lactate Dehydrogenase (120-246) U/L C-Reactive Protein (0.00-0.80) mg/dL Albumin (3.8-4.9) g/dL Albumin/Globulin Ratio (1.60-3.17) g/dL Assessment and Plan Assessment: 1 Acute hypoxic respiratory failure, related to acute COVID-19 pneumonia, onset of symptoms was 2 weeks prior to presentation, patient is non-vaccinated against COVID 19, outside the window for Remdesivir, and will be treated supportively with a combination of anticoagulation, Decadron and multivitamins. Currently on BiPAP 16/6 and 100% FiO2. Remains on Baricitinib. 2 Elevated d-dimer, lower extremity Doppler showed a chronic DVT in the right lower extremity, she can continue on prophylactic Lovenox 3 Increased LFTs, related to viral pneumonia 4 Hypertension 5 Hyperlipidemia 6 Obstructive sleep apnea 7 Diabetes mellitus type 2 8 Obesity with obesity hypoventilation syndrome 9 Chronic kidney disease stage IIIB 10 History of right lower extremity DVT not on any chronic anticoagulation Plan: The patient was seen and evaluated Continued on BiPAP 12/6 at 100% FiO2 We'll try to switch to high flow nasal cannula so the patient can tolerate some oral intake Continue Baricitinib, Decadron, Lovenox, vitamin supplements D-dimer noted. We'll repeat in a.m. Lung with inflammatory markers and a chest x-ray DNR/DNI code status We will continue to follow
[2021-06-17 16:41] LABS: Glucose,Whole Blood 247 mg/dL (75-99)
[2021-06-17] MEDS: BARICITINIB 2 MG TABLET PO SCH (17:07)
[2021-06-17 19:57] LABS: Glucose,Whole Blood 197 mg/dL (75-99)
[2021-06-17] MEDS ORDERED: INSULIN DETEMIR (LEVEMIR) 100 UNIT/ML SYR SQ SCH (21:00)
[2021-06-17] MEDS: ATORVASTATIN 20 MG TAB PO SCH (21:23)
[2021-06-18] MEDS: SODIUM CHLORIDE 0.9% 1,000 ML IV SCH (05:13)
[2021-06-18 06:11] VITALS: BP 99/55; PULSE 119; RESP 34; TEMP 101.4
--- NOTE | 2021-06-18 09:02 | P.DS ---
Providers Date of admission: 06/04/21 17:02 Expected date of discharge: 06/18/21 Attending physician: Malika Malagon MD Consults: 06/04/21 16:59 Consult Physician Urgent Consulting Provider: Vincent Pratt Consult Reason/Comments: COVID pneumonia Do you want consulting provider notified?: Yes Primary care physician: [facility] Course: This is an 86-year-old male patient of Dr. Larkin with past medical history of hypertension, hypertensive cardiovascular disease, hyperlipidemia, gastroesophageal reflux disease, diabetes mellitus type 2, obesity with obstr uctive sleep apnea and obesity hypoventilation syndrome, generalized osteoarthritis, chronic kidney disease stage IIIb, chronic DVT right lower extremity, patient had onset of symptoms 2 weeks ago with continued worsening of cough and shortness of breath. He has phlegm production. He has a little bit of chest pain. Patient complains of weakness and his had 3 falls at home. He presented to [facility] emergency center for evaluation found to be afebrile, heart rate 97, blood pressure 120/68, pulse ox 93%. EKG was a sinus rhythm with no acute ST changes. Chest x-ray was positive for Covid pneumonia. WBC 3.8, hemoglobin 12.4, platelet count 164. Sodium 133, BUN 21 creatinine 1.73. Blood sugar 237. ProBNP 981. Troponin 0.030. Lactic acid 1.0. Magnesium 1.5 and was replaced in the emergency center. Venous Doppler of the bilateral lower exam is negative for DVT. 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 [facility], started on Lovenox, dexamethasone, vitamin supplements and consult with pulmonary medicine. patient examined bedside sitting comfortably in bed. Is currently saturating at 93% on room air otherwise vitals are stable afebrile pulse 67 respiratory 8. 19 blood pressure 116/66 magnesium has improved to 2.1 liver enzymes continues to remain elevated proBNP is normal. Patient has detailed workup of liver enzymes in the previous admission and was seen by Dr. Purcell. Fatty hepatic infiltration was noted on hepatic ultrasound.. Continue patient on Decadron, Lovenox and supplementation. Venous Doppler suggestive of chronic DVT involving the right leg. Patient has no documentation of previous DVT and would benefit from Eliquis on discharge. will increase Lovenox to 100 subcu twice a day. His pro calcitonin was elevated he should patient on Rocephin and azithromycin for possible overlying for bacterial infection Patient examined lying comfortably in bed. Patient endorses yellowish phlegm production and SOB, oxygen saturation mentained on 1 Litre. Continue decadon, vit supplement and lovenox with plan to initiate eliquis on discharge for chronic DVT. PT OT evaluation with possible transfer to [facility] as patient had 2 falls prior to admission . He has significant weakness from COVID Pneumonia and would benefot from rehab 06/08 patient examined lying comfortably in bed. He is coughing white phlegm associated with congestion denies any shortness of breath. Patient continues to remain on 2 L oxygen saturating 90-91% blood pressure 147/78, LDH 8:30 8B1.7 continues to improve. Blood sugar ranging from 109 to 325. Continue Decadron, vitamin supplements. Lovenox for this issue Eliquis for 1 month. patient is significantly weak and is unable to get a his activities at this point. PTOT has recommended subacute rehab. I feel patient would benefit for a few days and we have before he is discharged to his home setting. Patient will complete Augmentin twice a day for 7 days. Mucinex 1200 twice a day Tessalon Perles added at 100 mg 3 times. Patient's elected to send patient to rehab who would like to take patient home. PT OT has recommended subacute rehab due to increased weakness. Will arrange patient's oxygen with possible discharge to home with home physical therapy as per family request 06/09 patient is lying in bed appears tired and weak. Her earlier today and nurse called as patient's oxygen requirement increased from 1 L to 10 L. Patient denies any worsening shortness breath or cough or dizziness. Chest x- ray was obtained as suggest bilateral radiculo nodular opacities suggestive of progression of Covid pneumonia. Patient is currently maintaining oxygenation 92% on 10 L of oxygen temp is 97.6 pulse 84 respiratory rate 17. Labs show worsening of information 3 markers suggesting increase of energy and she increase in CRP. No family updated on the prognosis. Await recommendation from pulmonary. Patient would benefit from Baricitinib infusion. Pulmonary recommendations awaiting 06/10 the patient examined bedside. He is currently frail looking short of breath at rest. Patient's afebrile pulse 73 that started radiating blood pressure 138/78 SIGNIFICANT 90% on 15 L high flow with nonrebreather at rest to 12,078, CRP increased to 2. Procalcitonin is normal. Patient is currently on supportive care. Discussion with pulmonary for possibility of baritinib patient has acutely decompensated. Patient's prognosis is poor 06/11: Patient remains in Covid isolation. He continues to have cough complains of chest discomfort with deep breathing. He has been on oxygen therapy with BiPAP 100% FiO2 with pulse ox of 89%. He's been afebrile, heart rate 90, respiratory rate 27, blood pressure 135/78. WBC 12.5, hemoglobin 13, platelet count 305. D-dimer 0.69. Blood sugars running between 145 and 341. AST 51, ALT 65. One dose of IV Lasix ordered. 06/12patient is seen today on the [facility] floor and continues to be in isolation. Patient is currently on BiPAP but not on airflow. Patient apparently is taking off his oxygen repeatedly. He is currently a full CODE STATUS. Dr. Larkin contacted the patient's and discussed current condition and poor prognosis and patient has been changed to no code and family may consider comfort care if he does not have improvement of his condition.patient is afebrile, heart rate 80, blood pressure 107/65, pulse ox 90%.repeat blood work reveals WBC 11.5, hemoglobin 12.9, platelet count 310. Creatinine 1.5. Blood sugars running between 120 and 190. AST 49, ALT 67, alkaline phosphatase 127. 06/13: Patient is seen today laying in bed, pulse ox 90% currently on BiPAP 06/18, FiO2 100%. He has been afebrile, heart rate 82, blood pressure 119/69. Repeat blood work reveals WBC 9.4. BUN 63 and creatinine 1.5. Blood sugars running between 83 and 242. Diverticular 2.16. LDH 1098, C-reactive protein 5.7. BUN 63 and creatinine 1.5. 06/14: Sugars are running between 52 and 91, Lantus decreased from 25 units to units twice day and NovoLog scheduled with meals will be discontinued. Patient is not able to eat due to desating on AirVo . He is taking Ensure supplement. Also ask is running 86-91% on 100% BiPAP. He has been afebrile, heart rate 70s and 80s, respiratory rate 26. WBC 13.7. BUN 61 creatinine 1.47. Repeat chest x-ray from yesterday revealed worsening left lower lobe infiltrate. Mild infiltrate at the right base. Correlate for atelectasis and pneumonia. 06/15: Patient remains on BiPAP with settings of 06/18 with FiO2 of 100%. His condition is essentially on changed from yesterday area patient continues to be somewhat lethargic and sleepy. Pulse ox is 97-90%. He's been afebrile, heart rate 98, blood pressure 109/60. C-reactive protein 3.2 and LDH 599. Blood sugars low this morning at 59 otherwise running up to 181. Levemir will be decreased to 10 mg twice daily. Patient continued on Baricitinib, dexamethasone, Lovenox and vitamin supplements. 06/16: Patient remains on BiPAP with pulse ox 92%. He is unable to tolerate removal of the BiPAP. He's been afebrile, heart rate 74, blood pressure 111/64. Blood sugars are running between 86 and 217. Noted that nursing staff did not give patient his morning Levemir. Patient continues on Baricitinib, dexamethasone, Lovenox and vitamin supplements. IV fluids will be resumed due to basically nothing by mouth status. 06/17: He should continues on BiPAP at 100% and pulse ox 93%. If removed, patient falls down to the 70 percentile. He is taking Glucerna but not much for any other food intake. Patient is afebrile, heart rate 86, blood pressure 103/64. Repeat blood work reveals WBC 18, hemoglobin 13, platelet count 296. D-dimer 9.71. Sodium 132. BUN 41 creatinine 1.4. Blood sugars have been elevated anywhere from 136-304. LDH 519. C-reactive protein 5.4. Levemir increased to 50 mg twice daily. 06/18: Patient had decline of his condition last evening and this morning. Please see nursing documentation for details. DISCHARGE DIAGNOSES 1. Acute hypoxic respiratory failure secondary to COVID-19 pneumonia. 2. Acute kidney injury secondary to ATN on Chronic kidney disease stage IIIb. 3. Acute on chronic Generalized weakness with multiple falls 4. Chronic DVT of right leg. 5. Hypertension, hypertensive cardiovascular disease. 6. Diabetes mellitus type 2 uncontrolled hyperglycemia and hypoglycemia. 7. Obesity with obstructive sleep apnea and obesity hypoventilation syndrome. 8. Gastroesophageal reflux disease. 9. Benign prostatic hypertrophy. 10. Hyperlipidemia. Impression and plan of care have been directed as dictated by the signing physician. Augustina Washington nurse practitioner acting as scribe for signing physician. Patient Condition at Discharge: Undetermined Plan - Discharge Summary Discharge Rx Participant: No New Discharge Prescriptions: New INSULIN ASPART (NovoLOG) [NovoLOG (formulary)] 0 unit SQ ACHS ml Apixaban [Eliquis] 5 mg PO BID #60 tab guaiFENesin [Mucinex] 1,200 mg PO Q12HR tablet Benzonatate [Tessalon Perles] 200 mg PO TID PRN cap PRN Reason: Cough dexAMETHasone ORAL [Hexadrol] 6 mg PO DAILY tab Zinc Sulfate [Orazinc] 220 mg PO DAILY cap Ascorbic Acid [Vitamin C] 1,000 mg PO DAILY tab Cholecalciferol [Vitamin D3 (25 Mcg = 1000 Iu)] 50 mcg PO DAILY tablet Amoxic-Pot Clav 875-125Mg [Augmentin 875-125] 1 tab PO Q12HR 7 Days #14 tab Continue Tamsulosin [Flomax] 0.4 mg PO PC-BID Simvastatin [Zocor] 40 mg PO HS lisinopriL [Zestril] 2.5 mg PO DAILY glipiZIDE/METFORMIN HCL [glipiZIDE/METFORMIN HCL 2.5-500 mg] 2 tab PO BID Omeprazole 20 mg PO DAILY Metoprolol Tartrate [Lopressor] 25 mg PO BID #60 tab Nitroglycerin Sl Tabs [Nitrostat] 0.4 mg SUBLINGUAL Q5M PRN tab PRN Reason: Chest Pain Insulin Glargine,Hum.rec.anlog [Basaglar Kwikpen U-100] 35 unit SQ HS Ibuprofen [Motrin Ib] 200 mg PO Q8H PRN PRN Reason: Pain Discharge Medication List Simvastatin [Zocor] 40 mg PO HS 11/26/16 [History] Tamsulosin [Flomax] 0.4 mg PO PC-BID 11/26/16 [History] lisinopriL [Zestril] 2.5 mg PO DAILY 11/26/16 [History] Omeprazole 20 mg PO DAILY 08/30/20 [History] glipiZIDE/METFORMIN HCL [glipiZIDE/METFORMIN HCL 2.5-500 mg] 2 tab PO BID 08/30/20 [History] Metoprolol Tartrate [Lopressor] 25 mg PO BID #60 tab 09/04/20 [Rx] Nitroglycerin Sl Tabs [Nitrostat] 0.4 mg SUBLINGUAL Q5M PRN tab 09/04/20 [Rx] Insulin Glargine,Hum.rec.anlog [Basaglar Kwikpen U-100] 35 unit SQ HS 03/04/21 [History] Ibuprofen [Motrin Ib] 200 mg PO Q8H PRN 06/04/21 [History] Apixaban [Eliquis] 5 mg PO BID #60 tab 06/08/21 [Rx] Ascorbic Acid [Vitamin C] 1,000 mg PO DAILY tab 06/08/21 [Rx] Benzonatate [Tessalon Perles] 200 mg PO TID PRN cap 06/08/21 [Rx] Cholecalciferol [Vitamin D3 (25 Mcg = 1000 Iu)] 50 mcg PO DAILY tablet 06/08/21 [Rx] INSULIN ASPART (NovoLOG) [NovoLOG (formulary)] 0 unit SQ ACHS ml 06/08/21 [Rx] Zinc Sulfate [Orazinc] 220 mg PO DAILY cap 06/08/21 [Rx] dexAMETHasone ORAL [Hexadrol] 6 mg PO DAILY tab 06/08/21 [Rx] guaiFENesin [Mucinex] 1,200 mg PO Q12HR tablet 06/08/21 [Rx] Amoxic-Pot Clav 875-125Mg [Augmentin 875-125] 1 tab PO Q12HR 7 Days #14 tab 06/09/21 [Rx] Follow up Appointment(s)/Referral(s): Leonard Larkin MD [Primary Care Provider] - 1-2 days (Office closed. Please call to make appointment. ) [facility], [NON-STAFF] - As Needed Jon Riley [NON-STAFF] - As Needed (oxygen ) Discharge Disposition: HOME WITH HOME HEALTH SERVICES - Preliminary Cause of Preliminary Cause of : Acute hypoxic respiratory failure secondary to COVID-19 pneumonia.
== END 2021-06-18 09:10 | disposition expired | DRG 177 ==
LOC: EC 13:53 → 4SSUR 17:02
PROVIDERS: ADMIT Internal Medicine; ATTEND Internal Medicine
PROC: 8E0ZXY6 Isolation (ICD-10-PCS; 2021-06-04)
PROC: 3E0333Z Introduction of Anti-inflammatory into Peripheral Vein, Percutaneous Approach (ICD-10-PCS; 2021-06-09)
PROC: XW0DXM6 Introduction of Baricitinib into Mouth and Pharynx, External Approach, New Technology Group 6 (ICD-10-PCS; principal; 2021-06-10)
PROC: 5A09557 Assistance with Respiratory Ventilation, Greater than 96 Consecutive Hours, Continuous Positive Airway Pressure (ICD-10-PCS; 2021-06-11)
DX: U07.1 COVID-19 (principal); J12.82 Pneumonia due to coronavirus disease 2019; J96.01 Acute respiratory failure with hypoxia; N17.0 Acute kidney failure with tubular necrosis; I13.0 Hypertensive heart and chronic kidney disease with heart failure and stage 1 through stage 4 chronic kidney disease, or unspecified chronic kidney disease; I82.511 Chronic embolism and thrombosis of right femoral vein; J98.11 Atelectasis; E66.2 Morbid (severe) obesity with alveolar hypoventilation; E11.22 Type 2 diabetes mellitus with diabetic chronic kidney disease; E11.65 Type 2 diabetes mellitus with hyperglycemia; E78.5 Hyperlipidemia, unspecified; E83.42 Hypomagnesemia; F32.A Depression, unspecified; H91.90 Unspecified hearing loss, unspecified ear; I50.9 Heart failure, unspecified; K21.9 Gastro-esophageal reflux disease without esophagitis; M15.9 Polyosteoarthritis, unspecified; N18.32 Chronic kidney disease, stage 3b; N40.0 Benign prostatic hyperplasia without lower urinary tract symptoms; R29.6 Repeated falls; Z66 Do not resuscitate; Z78.9 Other specified health status; Z79.01 Long term (current) use of anticoagulants; Z79.4 Long term (current) use of insulin; Z79.899 Other long term (current) drug therapy; Z80.3 Family history of malignant neoplasm of breast; Z82.0 Family history of epilepsy and other diseases of the nervous system; Z82.49 Family history of ischemic heart disease and other diseases of the circulatory system; Z83.3 Family history of diabetes mellitus; Z96.1 Presence of intraocular lens; Z68.39 Body mass index [BMI] 39.0-39.9, adult
CPT/HCPCS: 36415; 71045; 80053; 82728; 82805; 83036; 83605; 83615; 83735; 83880; 84145; 84484; 85025; 85027; 85379; 85610; 85652; 85730; 86140; 87635; 93005; 93970; 94660; 94760; 96365; 99291